=== PATIENT | male | born 1965 | race Caucasian/White ===

== ENCOUNTER → 2021-06-04 14:47 | Outpatient (BNVA) | payer MEDICARE, SELFPAY | PROVIDERS: PCP Internal Medicine Hematology & Oncology; Visit Provider Nurse Practitioner Family | DX: M96.1 Postlaminectomy syndrome, not elsewhere classified (principal); M47.27 Other spondylosis with radiculopathy, lumbosacral region; M53.3 Sacrococcygeal disorders, not elsewhere classified | CPT/HCPCS: 99202 ==

== ENCOUNTER → 2021-06-25 14:04 | Outpatient (BNVA) | payer MEDICARE, SELFPAY | PROVIDERS: PCP Internal Medicine Hematology & Oncology; Visit Provider Nurse Practitioner Family | DX: M96.1 Postlaminectomy syndrome, not elsewhere classified (principal); M47.27 Other spondylosis with radiculopathy, lumbosacral region; M53.3 Sacrococcygeal disorders, not elsewhere classified | CPT/HCPCS: 99212 ==

== ENCOUNTER → 2021-07-09 09:29 | Outpatient (BNVA) | payer MEDICARE, SELFPAY | PROVIDERS: PCP Internal Medicine; Visit Provider Nurse Practitioner Family | DX: Z51.81 Encounter for therapeutic drug level monitoring (principal); F11.20 Opioid dependence, uncomplicated; M96.1 Postlaminectomy syndrome, not elsewhere classified; M47.27 Other spondylosis with radiculopathy, lumbosacral region; M53.3 Sacrococcygeal disorders, not elsewhere classified; R20.2 Paresthesia of skin | CPT/HCPCS: 99212 ==

== ENCOUNTER 2021-07-25 09:27 | Outpatient (REF) | payer MEDICARE, SELFPAY ==
--- NOTE | 2021-07-25 09:32 | EMG_ITS ---
This is a 56-year-old man with history of pain and numbness in both hands since 2017 with the right being worse than the left. PHYSICAL EXAMINATION: On examination, he is alert and oriented. His cranial nerves II through XII are normal. Muscle tone and strength are normal in all 4 extremities. Deep tendon reflexes are symmetrical, 2+. Plantar response are flexor. There is no Tinel or Phalen sign. Nerve conduction EMG study: Normal electrodiagnostic study of both upper extremities except for low amplitudes in the motor nerves bilaterally. No electrodiagnostic evidence of generalized peripheral neuropathy. MD MICHAELA Duran/PACO / [id number]
== END 2021-07-25 09:28 | disposition home or self-care (01) ==
LOC: HO.NEURO 09:27
PROVIDERS: Visit Provider Nurse Practitioner Family
DX: R20.2 Paresthesia of skin (principal)
CPT/HCPCS: 95885; 95913

== ENCOUNTER → 2021-08-06 09:33 | Outpatient (BNVA) | payer MEDICARE, SELFPAY | PROVIDERS: PCP Internal Medicine; Visit Provider Nurse Practitioner Family | DX: M96.1 Postlaminectomy syndrome, not elsewhere classified (principal); M47.27 Other spondylosis with radiculopathy, lumbosacral region; M53.3 Sacrococcygeal disorders, not elsewhere classified; R20.2 Paresthesia of skin | CPT/HCPCS: 99212 ==

== ENCOUNTER → 2021-09-03 11:11 | Outpatient (BNVA) | payer MEDICARE, SELFPAY | PROVIDERS: PCP Internal Medicine; Visit Provider Nurse Practitioner Family | DX: Z51.81 Encounter for therapeutic drug level monitoring (principal); F11.20 Opioid dependence, uncomplicated; M96.1 Postlaminectomy syndrome, not elsewhere classified; M47.27 Other spondylosis with radiculopathy, lumbosacral region; M53.3 Sacrococcygeal disorders, not elsewhere classified; M54.2 Cervicalgia; M79.18 Myalgia, other site; R20.2 Paresthesia of skin | CPT/HCPCS: 99212 ==

== ENCOUNTER 2021-09-16 16:18 | Outpatient (REF) | payer MEDICARE, SELFPAY ==
--- NOTE | ~2021-09-16 | MR_ITS ---
EXAMINATION: MR CERVICAL SPINE WITHOUT CONTRAST CLINICAL INFORMATION: Paresthesia of the skin. COMPARISON: None available. TECHNIQUE: MRI of the cervical spine was obtained using routine sequences without contrast. FINDINGS: Straightening of the normal cervical lordosis. Mild degenerative anterolisthesis of C4 on C5. Moderate degenerative disc disease at C4-C5 and C5-C6. Mild degenerative disc disease at C3-C4 and C6-C7. Associated mixed Modic type discogenic endplate changes including mild Modic type I discogenic edema at C4-C5 and C5-C6. Mild marrow edema within the C3-C5 facets consistent with degenerative stress reaction. No additional suspicious marrow edema. The vertebral body heights are largely maintained. No demonstrated spinal cord signal abnormalities. Limited evaluation of the soft tissues of the neck without demonstrated abnormalities. The flow voids of the major cervical vessels are maintained. Normal appearance of the cervicomedullary junction and visualized posterior fossa. SPINAL LEVELS: C2-C3: Normal annular contour. There is no uncovertebral joint arthropathy. There is moderate left and mild right facet joint arthropathy. There is moderate left and no right neural foraminal stenosis. There is no spinal canal stenosis. C3-C4: Mild disc-osteophyte complex. There is moderate bilateral uncovertebral joint arthropathy. There is moderate bilateral facet joint arthropathy. There is moderate left and mild right neural foraminal stenosis. There is no spinal canal stenosis. C4-C5: Moderate disc-osteophyte complex. There is moderate right and mild left uncovertebral joint arthropathy. There is severe right and moderate left facet joint arthropathy. There is moderate to severe right and mild left neural foraminal stenosis. There is mild spinal canal stenosis. C5-C6: Moderate disc-osteophyte complex. There is moderate bilateral uncovertebral joint arthropathy. There is moderate bilateral facet joint arthropathy. There is severe left and moderate right neural foraminal stenosis. There is mild to moderate spinal canal stenosis. C6-C7: Moderate disc-osteophyte complex. There is moderate bilateral uncovertebral joint arthropathy. There is severe left and moderate right facet joint arthropathy. There is moderate to severe left and mild right neural foraminal stenosis. There is mild to moderate spinal canal stenosis. C7-T1: Normal annular contour. There is mild bilateral uncovertebral joint arthropathy. There is moderate to severe right and moderate left facet joint arthropathy. There is moderate bilateral neural foraminal stenosis. There is no spinal canal stenosis. MR/MR cervical spine wo con IMPRESSION: Moderate multilevel degenerative spondyloarthropathy of the cervical spine as described in detail above. Most notably, there are mild to moderate spinal canal stenoses from C4-C7. Moderate to severe neural foraminal stenoses from C2-T1. Moderate to advanced multilevel facet joint arthropathy.
== END 2021-09-16 16:19 | disposition home or self-care (01) ==
LOC: HO.MRI 16:18
PROVIDERS: Visit Provider Nurse Practitioner Family
DX: R20.2 Paresthesia of skin (principal); M47.812 Spondylosis without myelopathy or radiculopathy, cervical region; M48.02 Spinal stenosis, cervical region
CPT/HCPCS: 72141

== ENCOUNTER 2021-09-18 06:21 | Outpatient (REF) | payer MEDICARE, SELFPAY ==
--- NOTE | ~2021-09-18 | FL_ITS ---
EXAMINATION: XR FLUOROSCOPY WITH IMAGES CLINICAL INFORMATION: Postlaminectomy syndrome. COMPARISON: None. TECHNIQUE: Fluoroscopy performed by Zarina Erwin. Fluoroscopy time: 0.3 minutes DAP: 2.45 Gycm2 Images: 2 FINDINGS: There are 2 images obtained revealing needle positioned at the L2-L3 disc level with contrast opacifying the disc and a second needle inferior to L3 left pedicle with contrast opacifying the epidural space and the adjacent paravertebral soft tissues. There is mild degenerative spondylosis at the L2-L3, L3-L4 and L4-L5 disc levels. No visible acute fracture or dislocation seen. FL/FL guidance in treatment room IMPRESSION: Fluoroscopy guidance provided to referrer for pain management.
== END 2021-09-18 06:22 | disposition home or self-care (01) ==
LOC: HO.RADIR 06:21
PROVIDERS: Visit Provider Internal Medicine
DX: M96.1 Postlaminectomy syndrome, not elsewhere classified (principal); M47.27 Other spondylosis with radiculopathy, lumbosacral region
CPT/HCPCS: 64483; 64484; J1100; Q9967

== ENCOUNTER 2021-10-15 08:39 | Outpatient (REF) | payer MEDICARE, SELFPAY ==
--- NOTE | ~2021-10-15 | MR_ITS ---
EXAMINATION: MR LUMBAR SPINE WITHOUT AND WITH CONTRAST CLINICAL INFORMATION: 56-year-old with complaints of a chronic low back pain, with new left-sided thigh pain with history of previous spinal injection procedure. COMPARISON: None TECHNIQUE: MRI of the lumbar spine was obtained using routine sequences with and without contrast. Intravenous Contrast: Gadavist 9 mL. FINDINGS: Coronal Alignment: Mild mid lumbar dextrocurvature, slightly convex to the right at L3 with slight hqhqg-qe-ivkp lateral listhesis at L2-L3 and slight levocurvature convex to the left at T11-T12. Sagittal Alignment: There is straightening of the lumbar spine in the sagittal plane. No spondylolisthesis. Lumbosacral Junction: Normal. 5 rib-bearing lumbar-type vertebral bodies. Vertebral Bodies: Normal height. Disc Spaces and Endplates: Severe disc space height loss at L5-S1, ngbelizt-vk-wlbyci disc space height loss at L4-L5, moderate disc space height loss at L3-L4 and opof-ch-jvzwhxth disc space height loss at L2-L3 with xuhr-xj-qngmgbfi degrees of disc desiccation and multilevel Schmorl's nodes. There is anterolateral spondylosis at these levels. Spinal Canal: No abnormal developmental findings. Bone Marrow: Type I degenerative bone marrow signal changes seen along the inferior endplate of L3 posteriorly with associated marrow enhancement. Minimal type I degenerative marrow signal changes along the superior endplate of L3 with associated marrow enhancement. There is type II degenerative marrow signal change seen along the endplates between L2-L3 and L5-S1 inclusive, most apparent at L4-L5 and L5-S1. No suspicious marrow replacing process. Mild marrow edema noted in the L2 spinous process with associated mild marrow enhancement which may reflect a stress reaction. Conus Medullaris: Terminates at T12-L1. Morphology and signal is normal. No abnormal enhancement. Intradural Nerve Roots: Crowding of the intradural nerve roots at L2-L3 and L3-L4. See below. L5-S1: There is concentric disc osteophyte complex with a partially calcified central disc herniation with mild encroachment on the central thecal sac, abutting the left S1 nerve root sleeve origin without nerve root compression or displacement. Right-sided hemilaminectomy defect noted with mild bilateral facet arthrosis without significant central spinal canal stenosis. There is slight narrowing of the left subarticular zone. There is moderate right-sided and gehfudbb-dj-ypsfhn left-sided neural foraminal stenosis with disc osteophyte complex abutting the exiting L5 nerve roots bilaterally. L4-L5: Concentric disc osteophyte complex noted encroaching on the neural foramina bilaterally and mild flattening of the ventral dural sac with evidence of a previous left-sided hemilaminectomy with chronic postoperative changes involving the posterior elements. No significant central spinal canal stenosis. Bilateral facet arthrosis is noted, with crowding of the right subarticular recess resulting in mild encroachment on the traversing right L5 nerve root. There is moderate bilateral neural foraminal stenosis, with disc osteophyte complex abutting the exiting L4 nerve roots, right more than left. L3-L4: Central extruded disc herniation with slight caudal migration noted with ligamentum flavum thickening and underlying disc bulging with left posterolateral disc osteophyte complex and moderate bilateral facet arthropathy. There is severe central spinal canal stenosis with marked crowding of the intradural nerve roots and there is enhancement along the posterior annular fibers of the disc asymmetric to the left, entering the left neural foramen likely reflecting granulation tissue. There is severe bilateral subarticular recess stenosis with probable compromise of the traversing L4 nerve roots bilaterally. There is moderate left-sided and mild right-sided neural foraminal stenosis, with disc osteophyte complex impinging on the exiting left L3 nerve root and disc bulging contacting the exiting right L3 nerve root. L2-L3: There is diffuse disc bulging, superimposed on which is a 2.7 x 1.5 x 0.7 cm maximum dimensions structure of intermediate T1 with peripheral enhancement in the left subarticular recess and protruding into the left neural foramen which has the appearance of an extruded disc fragment with peripheral granulation tissue which impinges on the anterolateral thecal sac and exiting left L2 nerve root. There is epidural enhancement on the left which is consistent with inflammation/granulation tissue. Some enhancement in the dorsal annular fibers of the disc centrally and to the left of midline is also noted. Severe left subarticular zone compromise is noted likely involving the left L3 nerve root. There is associated moderate central spinal canal stenosis and there is mild right and moderate left-sided facet arthropathy. There is mild foraminal narrowing on the right. L1-L2: Minor disc bulging noted with moderate bilateral facet arthrosis and ligamentum flavum thickening with a tiny synovial cyst on the right. No significant spinal canal stenosis. Mild foraminal narrowing noted bilaterally. Paraspinal/Retroperitoneal: The paravertebral soft tissues appear unremarkable. MR/MR lumbar spine wo/w con IMPRESSION: 1. Multilevel discogenic degenerative changes and spondylosis with straightening of the lumbar spine with mild S-shaped thoracolumbar scoliotic curvature as described above. 2. Postoperative changes on the right at L5-S1 and on the left at the L4-L5 as discussed above. There is disc bulging at L2-L3 with suspicion for a 2.7 cm extruded disc herniation encroaching on the left subarticular recess and left neural foramen with some enhancing granulation tissue along its margins impinging on the anterolateral thecal sac, traversing left L3 and exiting left L2 nerve roots with marked left-sided foraminal compromise. Central spinal canal stenosis also noted at this level. 3. Disc bulging and central disc herniation at L3-L4 with posterior element hypertrophic degenerative changes, with severe spinal canal stenosis as described above and bilateral neural foraminal stenosis with impingement on the exiting L3 nerve roots, left more than right, and probable compromise of the traversing L4 nerve roots bilaterally. Enhancement in the posterolateral margin of the disc asymmetric to the left at this level is consistent with granulation tissue. 4. Multilevel bilateral facet arthropathy as described above.
== END 2021-10-15 08:40 | disposition home or self-care (01) ==
LOC: HO.MRI 08:39
PROVIDERS: Visit Provider Nurse Practitioner Family
DX: M47.27 Other spondylosis with radiculopathy, lumbosacral region (principal); M96.1 Postlaminectomy syndrome, not elsewhere classified
CPT/HCPCS: 72158; A9585

== ENCOUNTER → 2021-10-16 08:59 | Outpatient (BNVA) | payer MEDICARE, SELFPAY | PROVIDERS: PCP Internal Medicine; Visit Provider Nurse Practitioner Family | DX: Z51.81 Encounter for therapeutic drug level monitoring (principal); F11.20 Opioid dependence, uncomplicated; M96.1 Postlaminectomy syndrome, not elsewhere classified; M47.27 Other spondylosis with radiculopathy, lumbosacral region; M53.3 Sacrococcygeal disorders, not elsewhere classified; M54.2 Cervicalgia; M79.18 Myalgia, other site; R20.2 Paresthesia of skin | CPT/HCPCS: 99212 ==

== ENCOUNTER → 2021-11-13 08:51 | Outpatient (BNVA) | payer MEDICARE, SELFPAY | PROVIDERS: PCP Internal Medicine; Visit Provider Nurse Practitioner Family | DX: Z51.81 Encounter for therapeutic drug level monitoring (principal); F11.20 Opioid dependence, uncomplicated | CPT/HCPCS: 99212 ==

== ENCOUNTER → 2021-12-06 08:58 | Outpatient (BNVA) | payer MEDICARE, SELFPAY | PROVIDERS: PCP Internal Medicine; Visit Provider Nurse Practitioner Family | DX: Z51.81 Encounter for therapeutic drug level monitoring (principal); F11.20 Opioid dependence, uncomplicated; M96.1 Postlaminectomy syndrome, not elsewhere classified; M47.27 Other spondylosis with radiculopathy, lumbosacral region; M53.3 Sacrococcygeal disorders, not elsewhere classified; R20.2 Paresthesia of skin; M54.2 Cervicalgia; M79.18 Myalgia, other site | CPT/HCPCS: 99212 ==

== ENCOUNTER → 2022-02-05 08:53 | Outpatient (BNVA) | payer MEDICARE, SELFPAY | PROVIDERS: PCP Internal Medicine; Visit Provider Nurse Practitioner Family | DX: Z51.81 Encounter for therapeutic drug level monitoring (principal); F11.20 Opioid dependence, uncomplicated; M96.1 Postlaminectomy syndrome, not elsewhere classified; M47.27 Other spondylosis with radiculopathy, lumbosacral region; M53.3 Sacrococcygeal disorders, not elsewhere classified; R20.2 Paresthesia of skin; M54.2 Cervicalgia; M79.18 Myalgia, other site | CPT/HCPCS: 99212 ==

== ENCOUNTER → 2022-03-04 09:11 | Outpatient (BNVA) | payer MEDICARE, SELFPAY | PROVIDERS: PCP Internal Medicine; Visit Provider Nurse Practitioner Family | DX: Z51.81 Encounter for therapeutic drug level monitoring (principal); F11.20 Opioid dependence, uncomplicated | CPT/HCPCS: 99211 ==

== ENCOUNTER 2022-03-05 05:58 | Outpatient (REF) | payer MEDICARE, SELFPAY ==
--- NOTE | ~2022-03-05 | FL_ITS ---
EXAMINATION: XR FLUOROSCOPY WITH IMAGES CLINICAL INFORMATION: M53.3 - Sacrococcygeal disorders, not elsewhere classified COMPARISON: None. TECHNIQUE: Fluoroscopy performed by Dr. Edmond Mckeon. Fluoroscopy time: 0.3 minutes. Cumulative Dose: 5.54 mGy. DAP: 0.557 Gy-cm2. Images: 4. FINDINGS: There is a spinal needle overlying the mid left SI joint and a spinal needle overlying the mid right SI joint. The lateral views show needle tips at level of the joint in expected position. FL/FL guidance in treatment room IMPRESSION: Fluoroscopy for pain management procedure.
== END 2022-03-05 05:59 | disposition home or self-care (01) ==
LOC: HO.RADIR 05:58
PROVIDERS: Visit Provider Internal Medicine
DX: M53.3 Sacrococcygeal disorders, not elsewhere classified (principal)
CPT/HCPCS: 27096; J1040

== ENCOUNTER → 2022-03-10 11:23 | Outpatient (BNVA) | payer MEDICARE, SELFPAY | PROVIDERS: PCP Internal Medicine; Visit Provider Internal Medicine | DX: M79.18 Myalgia, other site (principal); M48.061 Spinal stenosis, lumbar region without neurogenic claudication; M96.1 Postlaminectomy syndrome, not elsewhere classified; M47.27 Other spondylosis with radiculopathy, lumbosacral region; M53.3 Sacrococcygeal disorders, not elsewhere classified | CPT/HCPCS: 20552; 20553; 99212; J2795 ==

== ENCOUNTER 2022-04-09 05:57 | Outpatient (REF) | payer MEDICARE, SELFPAY ==
--- NOTE | ~2022-04-09 | FL_ITS ---
EXAMINATION: XR FLUOROSCOPY WITH IMAGES CLINICAL INFORMATION: Sacrococcygeal disorder's. COMPARISON: March 05, 2022 TECHNIQUE: Fluoroscopy performed by Dr. Edmond Mckeon. Fluoroscopy time: 0.3 minutes. Cumulative Dose: 9.81 mGy. DAP: 2.44 Gy-cm2. Images: 6. FINDINGS: Multiple needles seen bilaterally overlying the sacrum FL/FL guidance in treatment room IMPRESSION: Intraoperative fluoroscopy for pain management procedure.
== END 2022-04-09 05:58 | disposition home or self-care (01) ==
LOC: CF 05:57
PROVIDERS: Visit Provider Internal Medicine
DX: M53.3 Sacrococcygeal disorders, not elsewhere classified (principal)
CPT/HCPCS: 64451; J2795; Q9965; Q9967

== ENCOUNTER → 2022-04-14 10:32 | Outpatient (BNVA) | payer MEDICARE, SELFPAY | PROVIDERS: PCP Internal Medicine; Visit Provider Internal Medicine | DX: M96.1 Postlaminectomy syndrome, not elsewhere classified (principal); M48.061 Spinal stenosis, lumbar region without neurogenic claudication | CPT/HCPCS: Q3014 ==

== ENCOUNTER → 2022-05-06 15:06 | Outpatient (BNVA) | payer MEDICARE, SELFPAY | PROVIDERS: PCP Internal Medicine; Visit Provider Nurse Practitioner Family | DX: Z79.891 Long term (current) use of opiate analgesic (principal) | CPT/HCPCS: 99211 ==

== ENCOUNTER → 2022-06-19 10:15 | Outpatient (BNVA) | payer MEDICARE, SELFPAY | PROVIDERS: PCP Internal Medicine; Visit Provider Nurse Practitioner Family | DX: M53.3 Sacrococcygeal disorders, not elsewhere classified (principal); M47.27 Other spondylosis with radiculopathy, lumbosacral region; M96.1 Postlaminectomy syndrome, not elsewhere classified; M79.18 Myalgia, other site; Z79.891 Long term (current) use of opiate analgesic | CPT/HCPCS: 99212 ==

== ENCOUNTER 2022-07-16 04:53 | Outpatient (REF) | payer MEDICARE, SELFPAY ==
--- NOTE | ~2022-07-16 | FL_ITS ---
EXAMINATION: XR FLUOROSCOPY WITH IMAGES CLINICAL INFORMATION: Spinal stenosis. COMPARISON: None. TECHNIQUE: Fluoroscopy Supervised By: Zarina. Fluoroscopy Time: 0.1 minute. Cumulative Dose: 170 mGy. DAP: 0.228 Gycm2. Images: 2. FINDINGS: There are 2 digital images obtained revealing needle positioned adjacent to L4 and L5 pedicles with contrast opacifying the soft tissues. There is mild ventral spondylosis at the L3-L4 and L4-L5 disc levels. No aggressive lytic or sclerotic process seen. No visible acute fracture or dislocation. No lytic process. The paravertebral soft tissues are normal. FL/FL guidance in treatment room IMPRESSION: 1. Fluoroscopy was provided to referring physician for pain management. 2. There is mild ventral spondylosis L3-L4 and L4-L5 disc levels.
== END 2022-07-16 04:54 | disposition home or self-care (01) ==
LOC: CF 04:53
PROVIDERS: Visit Provider Internal Medicine
DX: M47.817 Spondylosis without myelopathy or radiculopathy, lumbosacral region (principal); M47.816 Spondylosis without myelopathy or radiculopathy, lumbar region
CPT/HCPCS: 64493; 64494

== ENCOUNTER → 2022-07-18 08:20 | Outpatient (BNVA) | payer MEDICARE, SELFPAY | PROVIDERS: PCP Internal Medicine; Visit Provider Nurse Practitioner Family | DX: M53.3 Sacrococcygeal disorders, not elsewhere classified (principal); M47.27 Other spondylosis with radiculopathy, lumbosacral region; M96.1 Postlaminectomy syndrome, not elsewhere classified; M79.18 Myalgia, other site; M47.816 Spondylosis without myelopathy or radiculopathy, lumbar region; G57.02 Lesion of sciatic nerve, left lower limb; Z98.890 Other specified postprocedural states | CPT/HCPCS: Q3014 ==

== ENCOUNTER 2022-08-20 06:47 | Outpatient (REF) | payer MEDICARE, SELFPAY ==
--- NOTE | ~2022-08-20 | FL_ITS ---
EXAMINATION: XR FLUOROSCOPY WITH IMAGES CLINICAL INFORMATION: Static nerve lesion. Left lower lobe pain. COMPARISON: None. TECHNIQUE: Fluoroscopy Supervised By: Dr. Edmond Mckeon. Fluoroscopy Time: 0.3 minutes. Cumulative Dose: 4.66 mGy. DAP: 1.26 Gy-cm2. Images: 1. FINDINGS: There is a single image revealing needle positioned inferior to the left SI joint with contrast opacifying the soft tissues. The SI joints spaces is maintained normal. No gross bony abnormality seen on the visualized images. FL/FL guidance in treatment room IMPRESSION: Fluoroscopy guidance was provided to referrer for pain management.
== END 2022-08-20 06:48 | disposition home or self-care (01) ==
LOC: CF 06:47
PROVIDERS: Visit Provider Internal Medicine
DX: M79.18 Myalgia, other site (principal); G57.02 Lesion of sciatic nerve, left lower limb
CPT/HCPCS: 20552; J3301

== ENCOUNTER → 2022-09-05 08:19 | Outpatient (BNVA) | payer MEDICARE, SELFPAY | PROVIDERS: PCP Internal Medicine; Visit Provider Internal Medicine | DX: M96.1 Postlaminectomy syndrome, not elsewhere classified (principal) | CPT/HCPCS: 99212 ==

== ENCOUNTER → 2022-10-09 09:01 | Outpatient (BNVA) | payer MEDICARE, SELFPAY | PROVIDERS: PCP Internal Medicine; Visit Provider Internal Medicine | DX: Z51.81 Encounter for therapeutic drug level monitoring (principal) | CPT/HCPCS: 99211 ==

== ENCOUNTER → 2022-11-14 09:07 | Outpatient (BNVA) | payer MEDICARE, SELFPAY | PROVIDERS: PCP Internal Medicine; Visit Provider Internal Medicine | DX: Z51.81 Encounter for therapeutic drug level monitoring (principal); F11.20 Opioid dependence, uncomplicated; M48.061 Spinal stenosis, lumbar region without neurogenic claudication; M96.1 Postlaminectomy syndrome, not elsewhere classified | CPT/HCPCS: 99212 ==

== ENCOUNTER 2022-12-22 08:45 | Outpatient (AMB) | payer MEDICARE, SELFPAY ==
--- NOTE | 2022-12-22 08:50 | MHC.OFFVIS ---
Intake Vital Signs 12/22/22 08:52 Height 5 ft 10 in Weight 195 lb BMI 28.0 BP 159/75 H Blood Pressure Location Lt brachial Position Sitting Respiration 14 Pulse 63 Pulse Source Pulse Oximeter Pulse Oximetry (%) 96 Oxygen Delivery Method Room Air Intake Visit Reasons: Pill count Allergies No Known Allergies Allergy (Verified 12/22/22 08:56) Medication List - Last Reconciled 12/22/22 by Loida Louie LPN alprazolam 0.5 mg PO TID PRN aptugednv-cifhkzry-rupbmnz ala 50-200-25 mg (Biktarvy) 1 tab PO DAILY doxycycline hyclate 100 mg PO DAILY fluoxetine 20 mg PO DAILY fluticasone propionate 50 mcg/actuation 1 spray intranasal BID gabapentin 600 mg PO QID hydrocodone-acetaminophen 5-325 mg 1 tab PO Q4H PRN 30 days lidocaine 5% 1 patch topical DAILY meclizine 25 mg PO DAILY PRN mupirocin 2% topical DAILY naloxone 4 mg/actuation (Narcan) 4 mg intranasal Q2M PRN omeprazole 40 mg PO DAILY simvastatin 20 mg PO BEDTIME terbinafine HCl 250 mg PO DAILY zolpidem 5 mg PO BEDTIME PRN HPI Pill count HPI Details 57-year-old male presenting today for a pill count. 184 pills were expected, and 157 pills were presented. He had a delay in filling his prescription and filled it on 12/17/2022. His [facility] had a refill date of 12/06/22, but it was not done on time due to opioid medication shortage. He states that he was taking 6-8 ibuprofens in the morning and two pain patches every four hours from 12/06/22 to 12/17/22 to manage his pain. He is still waiting for an appointment with Dr. Valdovinos. He is amenable to proceed with left L5 TFESI for his LLE pain. Past Procedures and Surgery: 08/20/2022: Piriformis Muscle Injection, Left: No relief 07/16/22: Left Diagnostic L4-L5-S1 MBB-0% pain relief 04/09/22: Right Diagnostic SIJ Innervation ? No relief. 03/05/22: Bilateral intra-articular corticosteroid SIJ Injection ? 90% relief for 2 days. 12/09/21: Left L2-L3 discectomy and L3-L4 decompression by Dr. Griffith 09/18/21: Left L3 TFESI, attempted Left L2- No relief. Review of Systems Const All systems reviewed & are unremarkable except as noted in HPI and below Physical Exam Vital Signs: Last Vital Signs Pulse 63 12/22/22 08:52 Resp 14 12/22/22 08:52 BP 159/75 H 12/22/22 08:52 Pulse Ox 96 12/22/22 08:52 Oxygen Delivery Method Room Air 12/22/22 08:52 BMI result Body Mass Index 28.0 General: Appears afebrile. Alert and oriented. Mood and affect appropriate. Follows and participates in conversation appropriately. Respiratory effort is unlabored. Able to transition from sit to stand unassisted. Ambulates with bilaterally normal heel strike and toe off. Results Reviewed Results Reviewed: No imaging is available for review. Assessment & Plan Assessment & Plan (1) Spondylosis of lumbosacral spine with radiculopathy: Code(s): M47.27 - Other spondylosis with radiculopathy, lumbosacral region Plan 1. Will schedule him for Left L5 TFESI for his back/LLE pain. Discussed the risks and benefits of the procedure with the patient in detail. All questions were answered. The patient is on board with the plan. 2. The patient is awaiting appointment with Dr. Valdovinos for surgical evaluation. 3. Once again reminded the patient about the option for spinal cord stimulation which we have already discussed in the past. Justification for interventional therapy: ? Patient with average pain > 6/10 ? Patient has exhausted conservative therapy Scribed for Dr. Mckeon by Hipolito Abdi, medical delivery driver, on 12/22/2022. I, Dr. Mckeon, have personally reviewed and agree with the information entered by the scribe. Medications: Refilled hydrocodone-acetaminophen 5-325 mg Partial Fill upon patient request. No Tylenol or any other Tylenol products while on this medication!. 1 tab PO Q4H 30 days PRN 180 tabs 0RF pain Coding Level of Care Code Est Pt Level 4 (36477) Diagnoses Spondylosis of lumbosacral spine with radiculopathy M47.27
[2022-12-22 08:52] VITALS: BP 159/75; PULSE 63; RESP 14; O2SAT 96; BMI 28.0
== END 2022-12-22 09:08 | disposition home or self-care (01) ==
PROVIDERS: PCP Internal Medicine; Visit Provider Internal Medicine
DX: M47.27 Other spondylosis with radiculopathy, lumbosacral region (principal)
CPT/HCPCS: 99214

== ENCOUNTER → 2022-12-22 08:45 | Outpatient (BNVA) | payer MEDICARE, SELFPAY | PROVIDERS: PCP Internal Medicine; Visit Provider Internal Medicine | DX: Z51.81 Encounter for therapeutic drug level monitoring (principal); F11.20 Opioid dependence, uncomplicated; M47.27 Other spondylosis with radiculopathy, lumbosacral region | CPT/HCPCS: 99212 ==

== ENCOUNTER 2023-01-28 06:00 | Outpatient (REF) | payer MEDICARE, SELFPAY ==
--- NOTE | ~2023-01-28 | FL_ITS ---
EXAMINATION: XR FLUOROSCOPY WITH IMAGES CLINICAL INFORMATION: History of postlaminectomy syndrome COMPARISON: MRI lumbar spine from 10/15/2021 TECHNIQUE: Fluoroscopy Supervised By: Dr. Mckeon. Fluoroscopy Time: 0.1 minute. Cumulative Dose: 2.40 mGy. DAP: 0.35 Gycm2. A single AP view of the lower lumbar spine is saved. FL/FL guidance in treatment room FINDINGS AND IMPRESSION: Multilevel degenerative arthropathy of the lumbar spine. Images are not labeled with regards to laterality. Fluoroscopic imaging performed during a nerve root sleeve injection procedure at the level of a L5 nerve root.
== END 2023-01-28 06:01 | disposition home or self-care (01) ==
LOC: CF 06:00
PROVIDERS: Visit Provider Internal Medicine
DX: F11.20 Opioid dependence, uncomplicated (principal); M47.27 Other spondylosis with radiculopathy, lumbosacral region; M96.1 Postlaminectomy syndrome, not elsewhere classified
CPT/HCPCS: 64483; J1100

== ENCOUNTER 2023-01-28 08:23 | Outpatient (AMB) | payer MEDICARE, SELFPAY ==
[2023-01-28 08:32] VITALS: BP 140/82; PULSE 55; RESP 14; O2SAT 98
--- NOTE | 2023-01-28 08:32 | A.OFFVIS_ITS ---
Intake Vital Signs 01/28/23 08:32 BP 140/82 H Blood Pressure Location Lt brachial Position Sitting Respiration 14 Pulse 55 Pulse Source Pulse Oximeter Pulse Oximetry (%) 98 Oxygen Delivery Method Room Air Intake Visit Reasons: Left L5 TFESI/ pill count Intake Note: Pills counted - Pt was supposed to have 102 vicodin, he presented 112. Dr. Mckeon notified to send in next script Allergies No Known Allergies Allergy (Verified 01/28/23 08:33) HPI Left L5 TFESI/ pill count HPI Details Patient presents for scheduled procedure. Denies any recent cough, cold, infection, fever or other significant changes in medical history since last office visit. Physical Exam Vital Signs: Last Vital Signs Pulse 55 01/28/23 08:32 Resp 14 01/28/23 08:32 BP 140/82 H 01/28/23 08:32 Pulse Ox 98 01/28/23 08:32 Oxygen Delivery Method Room Air 01/28/23 08:32 Office Procedures Details: Transforaminal epidural steroid injection, Left L5 After obtaining written consent, pre-procedure blood pressure and heart rate were stable and recorded in the nursing record. The patient was placed in the prone position on the fluoroscopy table. The lumbosacral area was prepped with chloraprep, allowed to dry and draped in sterile fashion. Using fluoroscopy, the skin overlying our target was anesthetized with 0.5% lidocaine. A 22 gauge 3.5 inch spinal needle was advanced to the safe triangle in the upper pole of the left L5 foramen. No paresthesias were elicited with needle placement and aspiration was negative for blood and CSF. Correct needle position was confirmed with approximately 1 ml contrast dye (Isovue 300 mg/ml) injected under fluoroscopy. No evidence of vascular or int rathecal uptake was seen and there was both epidural and peripheral spread of the contrast agent. 10 mg dexamethasone plus 1 ml containing 0.5% lidocaine was slowly injected. The needle was flushed and removed. the same procedure was repeated for the remaining levels. The skin was cleansed and a sterile bandages were applied. The patient tolerated the procedure well and no complications were encountered. Following the procedure the patient's vital signs were stable. The patient was discharged home in good condition with post-procedural instructions. Time Out: Immediately prior to the procedure, the following was verbally confirmed that there is a signed consent form and that the correct patient, planned procedure, site and side are consistent with documentation and that necessary equipment and/or blood products are available prior to the start of the case. Complications: none EBL: <5 cc 76810 - Lumbar/Sacral Procedure code (CPT) selection complete Assessment & Plan Assessment & Plan (1) Spondylosis of lumbosacral spine with radiculopathy: Code(s): M47.27 - Other spondylosis with radiculopathy, lumbosacral region Plan Patient is status post left L5 TFESI. Patient tolerated procedure well and was discharged home in stable condition with discharge instructions. All questions were answered. We will follow-up via telephone or in clinic to assess response to therapy. A follow-up appointment was made during today's visit. Orders: Orders FL guidance in treatment room Today M47.27 - Other spondylosis with radi culopathy, lumbosacral region, M96.1 - Postlaminectomy syndrome, not elsewhere classified Coding Level of Care Code Procedure Only Diagnoses Spondylosis of lumbosacral spine with radiculopathy M47.27 CPT Codes Transforaminal Epidural Steroid Inj - TESI 3: 24576 - Lumbar/Sacral ([id number])
== END 2023-01-28 09:32 | disposition home or self-care (01) ==
PROVIDERS: PCP Internal Medicine; Visit Provider Internal Medicine
DX: M47.27 Other spondylosis with radiculopathy, lumbosacral region (principal)
CPT/HCPCS: 64483

== ENCOUNTER 2023-03-13 09:07 | Outpatient (AMB) | payer MEDICARE, SELFPAY ==
[2023-03-13 09:20] VITALS: PULSE 56; RESP 14; O2SAT 97; BMI 28.0
--- NOTE | 2023-03-13 09:20 | MHC.OFFVIS ---
Intake Vital Signs 03/13/23 09:20 Height 5 ft 10 in Weight 195 lb BMI 28.0 Blood Pressure Location Rt brachial Position Sitting Respiration 14 Pulse 56 Pulse Source Pulse Oximeter Pulse Oximetry (%) 97 Oxygen Delivery Method Room Air Intake Visit Reasons: s/p Left L5 TFESI/pill count Intake Note: Pt states he last took vicodin 03/13/23 @ 6am Allergies No Known Allergies Allergy (Verified 03/13/23 09:21) Medication List - Last Reconciled 03/13/23 by Loida Louie LPN alprazolam 0.5 mg PO TID PRN nfgofcisd-wkaijzhh-mefabkh ala 50-200-25 mg (Biktarvy) 1 tab PO DAILY doxycycline hyclate 100 mg PO DAILY fluoxetine 20 mg PO DAILY fluticasone propionate 50 mcg/actuation 1 spray intranasal BID gabapentin 600 mg PO QID hydrocodone-acetaminophen 5-325 mg 1 tab PO Q4H PRN 30 days lidocaine 5% 1 patch topical DAILY meclizine 25 mg PO DAILY PRN mupirocin 2% topical DAILY naloxone 4 mg/actuation (Narcan) 4 mg intranasal Q2M PRN omeprazole 40 mg PO DAILY simvastatin 20 mg PO BEDTIME terbinafine HCl 250 mg PO DAILY zolpidem 5 mg PO BEDTIME PRN HPI s/p Left L5 TFESI/pill count HPI Details 58-year-old male who presents today to the office for a status post left L5 TFESI and pill count. The patient reports 80 % relief following the procedure for few hours before it returned to the previous level. He continues to have significant pain down the left lower extremity. 30 pills were expected, and 38 pills were presented. The patient is not interested in proceeding with SCS stimulator trial. He is thinking of visiting Dr. Valdovinos for consideration of a left L5 foraminotomy given his excellent diagnostic response to the left L5 TFESI. He states that he slept on his right side and has had shoulder pain since. He has had intermittent shoulder pain for a few months now. He had an x-ray of the shoulder that revealed arthritis. He had two shoulder injections in the past with moderate to minimal relief. He is interested in a shoulder injection in the office today. Past Procedures and Surgery: 01/28/23: Transforaminal epidural steroid injection, Left L5: % relief for few hours. 08/20/2022: Piriformis Muscle Injection, Left: No relief 07/16/22: Left Diagnostic L4-L5-S1 MBB-0% pain relief 04/09/22: Right Diagnostic SIJ Innervation ? No relief. 03/05/22: Bilateral intra-articular corticosteroid SIJ Injection ? 90% relief for 2 days. 12/09/21: Left L2-L3 discectomy and L3-L4 decompression by Dr. Griffith 09/18/21: Left L3 TFESI, attempted Left L2- No relief. Review of Systems Const All systems reviewed & are unremarkable except as noted in HPI and below Physical Exam Vital Signs: Last Vital Signs Pulse 56 03/13/23 09:20 Resp 14 03/13/23 09:20 Pulse Ox 97 03/13/23 09:20 Oxygen Delivery Method Room Air 03/13/23 09:20 BMI result Body Mass Index 28.0 General: Appears afebrile. Alert and oriented. Mood and affect appropriate. Follows and participates in conversation appropriately. Respiratory effort is unlabored. Able to transition from sit to stand unassisted. Ambulates with bilaterally normal heel strike and toe off. Right shoulder range of motion is limited by pain with pain on abduction. Office Procedures Joint Injection/Drain Joint Injection/Drain Details: Right subacromial shoulder injection, ultrasound guided Primary Site: right shoulder Prep: site was prepped using sterile technique Injected: 40 mg of, Kenalog, with 3 mL of, 0.25% bupivacaine and in the subcromial space Approach Used: posterolateral Procedure: The patient tolerated the procedure well Coding Details: An ultrasound image of the injection was taken and stored in the permanent record. 46042 - Acromioclavicular with ultrasound guidance Procedure code (CPT) selection complete Results Reviewed Results Reviewed: No imaging is available for review. Assessment & Plan Assessment & Plan (1) Lumbar spondylosis: Code(s): M47.816 - Spondylosis without myelopathy or radiculopathy, lumbar region (2) Failed back syndrome: Code(s): M96.1 - Postlaminectomy syndrome, not elsewhere classified (3) Rotator cuff tendinitis: Code(s): M75.80 - Other shoulder lesions, unspecified shoulder Qualifiers: Laterality: right Qualified Code(s): M75.81 - Other shoulder lesions, right shoulder Plan A refill of Vicodin 5-325 mg was provided today. Pill count is consistent. Patient will follow up in one month for pill count and refill. Patient is status post right subacromial shoulder injection, ultrasound guided for his shoulder pain. Patient tolerated procedure well and was discharged home in stable condition with discharge instructions. All questions were answered. Scribed for Dr. Mckeon by Hipolito Abdi, medical apparatus model maker, on 03/13/2023. I, Dr. Mckeon, have personally reviewed and agree with the information entered by the scribe. Medications: Changed From hydrocodone-acetaminophen 5-325 mg Partial Fill upon patient request. No Tylenol or any other Tylenol products while on this medication!. 1 tab PO Q4H 30 days PRN 180 tabs 0RF pain To hydrocodone-acetaminophen 5-325 mg Partial Fill upon patient request. No Tylenol or any other Tylenol products while on this medication. 1 tab PO Q4H PRN 180 tabs 0RF pain 30 days Coding Level of Care Code Est Pt Level 4 (99678) Diagnoses Lumbar spondylosis M47.816 Failed back syndrome M96.1 Tendinitis of right rotator cuff M75.81 Laterality: right CPT Codes Coding - Joint 6: 66674 - Acromioclavicular with ultrasound guidance ([id number])
== END 2023-03-13 09:53 | disposition home or self-care (01) ==
PROVIDERS: PCP Internal Medicine; Visit Provider Internal Medicine
DX: M47.816 Spondylosis without myelopathy or radiculopathy, lumbar region (principal); M96.1 Postlaminectomy syndrome, not elsewhere classified; M75.81 Other shoulder lesions, right shoulder
CPT/HCPCS: 20606; 99214

== ENCOUNTER → 2023-03-13 09:07 | Outpatient (BNVA) | payer MEDICARE, SELFPAY | PROVIDERS: PCP Internal Medicine; Visit Provider Internal Medicine | DX: M75.81 Other shoulder lesions, right shoulder (principal); M47.816 Spondylosis without myelopathy or radiculopathy, lumbar region; M96.1 Postlaminectomy syndrome, not elsewhere classified | CPT/HCPCS: 20606; 99212; J3301 ==

== ENCOUNTER 2023-04-10 13:42 | Outpatient (AMB) | payer MEDICARE, SELFPAY ==
[2023-04-10 13:54] VITALS: BP 155/90; PULSE 65; RESP 16; O2SAT 95; BMI 28.0
--- NOTE | 2023-04-10 13:54 | A.OFFVIS_ITS ---
Intake Vital Signs 04/10/23 13:54 Height 5 ft 10 in Weight 195 lb BMI 28.0 BP 155/90 H Blood Pressure Location Lt brachial Position Sitting Respiration 16 Pulse 65 Pulse Source Pulse Oximeter Pulse Oximetry (%) 95 Oxygen Delivery Method Room Air Intake Visit Reasons: PILL COUNT/LVM Allergies No Known Allergies Allergy (Verified 04/10/23 13:55) HPI HPI Comments History of Present Illness Details Roni is a very pleasant 58 year old male who presents to the office for follow up chronic pain and chronic opioid therapy management. Patient is prescribed hydrocodone acetaminophen 5-325mg take 1 tablet every 4 hours as needed. Patient arrived today with the expectation of having 36 pills, she presented 50 pills which were counted in the presence of two staff members and returned to the patient in the original prescription bottle. This demonstrates responsible attitude toward patient's opioid medications. Pain is reported today as 6/10 and last dose of pain medication was taken at noon today. Pain is adequately managed on current opioid regimen. Patient denies any recent changes or exacerbations of chronic pain and states he is able to engage in activities of daily living with minimal interruption due to chronic pain. Patient denies side effects including somnolence, constipation, itching, dyspnea, rash, dizziness or weakness. Patient had Right subacromial shoulder injection last month, he reports pain improved since that injection. He has noticed that his chronic back pain was overall improved since that injection as well. Past Procedures and Surgery: 03/13/23: Right subacromial shoulder inj ection, ultrasound guided 01/28/23: Transforaminal epidural steroi d injection, Left L5: % relief for few hours. 08/20/2022: Piriformis Muscle Injection, Left: No relief 07/16/22: Left Diagnostic L4-L5-S1 MBB-0 % pain relief 04/09/22: Right Diagnostic SIJ Innervati on ? No relief. 03/05/22: Bilateral intra-articular corti costeroid SIJ Injection ? 90% relief for 2 days. 12/09/21: Left L2-L3 discectomy and L3-L [address] Griffith 09/18/21: Left L3 TFESI, attempted Left L2- No relief. Review of Systems Const All systems reviewed & are unremarkable except as noted in HPI and below Physical Exam Vital Signs: Last Vital Signs Pulse 65 10/27/23 13:54 Resp 16 04/10/23 13:54 BP 155/90 H 04/10/23 13:54 Pulse Ox 95 04/10/23 13:54 Oxygen Delivery Method Room Air 04/10/23 13:54 BMI result Body Mass Index 28.0 General: awake, alert, oriented. Answers questions appropriately. Fully engaged in examination. Skin: warm, dry, intact HEENT: Normocephalic. Hearing intact. Cardiac: External chest normal in appearance. Respiratory: No cough, audible wheezing or stridor. Abdomen: without gross distension. MS: No obvious swelling or deformities. Able to transition from sit to stand unassisted. Ambulates with antalgic gait Neurological: Oriented to person, place, time and situation. Thought process intact. Psychiatric: Appropriate mood and affect. Good judgment and insight. Assessment & Plan Assessment & Plan (1) Lumbar spondylosis: Code(s): M47.816 - Spondylosis without myelopathy or radiculopathy, lumbar region (2) Failed back syndrome: Code(s): M96.1 - Postlaminectomy syndrome, not elsewhere classified (3) Rotator cuff tendinitis: Code(s): M75.80 - Other shoulder lesions, unspecified shoulder Qualifiers: Laterality: right Qualified Code(s): M75.81 - Other shoulder lesions, right shoulder Plan Masspat was reviewed and without concerns. No obvious signs of diversion, abuse or misuse of the opioid medications. Will send in prescription for hydrocodone/acetaminophen 5-325 mg every 4 hours as needed with an advanced date of 04/17/2023. Patient to follow-up in the office in 1 month, sooner if needed. All questions and concerns have been answered and patient agrees with the plan. Medications: Refilled hydrocodone-acetaminophen 5-325 mg Partial Fill upon patient request. No Tylenol or any other Tylenol products while on this medication. 1 tab PO Q4H 30 days PRN 180 tabs 0RF pain Coding Level of Care Code Est Pt Level 3 (72528) Diagnoses Lumbar spondylosis M47.816 Failed back syndrome M96.1 Tendinitis of right rotator cuff M75.81 Laterality: right
== END 2023-04-10 14:05 | disposition home or self-care (01) ==
PROVIDERS: PCP Internal Medicine; Visit Provider Registered Nurse Emergency
DX: M47.816 Spondylosis without myelopathy or radiculopathy, lumbar region (principal); M96.1 Postlaminectomy syndrome, not elsewhere classified; M75.81 Other shoulder lesions, right shoulder; Z79.891 Long term (current) use of opiate analgesic
CPT/HCPCS: 99213

== ENCOUNTER → 2023-04-10 13:42 | Outpatient (BNVA) | payer MEDICARE, SELFPAY | PROVIDERS: PCP Internal Medicine; Visit Provider Registered Nurse Emergency | DX: Z51.81 Encounter for therapeutic drug level monitoring (principal); F11.20 Opioid dependence, uncomplicated; M47.816 Spondylosis without myelopathy or radiculopathy, lumbar region; M96.1 Postlaminectomy syndrome, not elsewhere classified; M75.81 Other shoulder lesions, right shoulder | CPT/HCPCS: 99212 ==

== ENCOUNTER → 2023-05-11 08:26 | Outpatient (BNVA) | payer MEDICARE, SELFPAY | PROVIDERS: PCP Internal Medicine; Visit Provider Nurse Practitioner Family | DX: M79.18 Myalgia, other site (principal) | CPT/HCPCS: 20553; 99211; J0665 ==

== ENCOUNTER 2023-05-11 09:00 | Outpatient (AMB) | payer MEDICARE, SELFPAY ==
--- NOTE | 2023-05-11 09:00 | A.OFFVIS_ITS ---
Intake Intake Visit Reasons: TPI Allergies No Known Allergies Allergy (Verified 05/11/23 09:00) HPI TPI HPI Details 58-year-old male who presents today to t he office for trigger point injections. Denies any recent cough, cold, infection, fever or other significant changes in medical history since last office visit. Past Procedures and Surgery: 03/13/23: Right subacromial shoulder inj ection, ultrasound guided: 01/28/23: Transforaminal epidural steroi d injection, Left L5: 80% relief for few hours. 08/20/2022: Piriformis Muscle Injection, Left: No relief 07/16/22: Left Diagnostic L4-L5-S1 MBB-0 % pain relief 04/09/22: Right Diagnostic SIJ Innervati on ? No relief. 03/05/22: Bilateral intra-articular corti costeroid SIJ Injection ? 90% relief for 2 days. 12/09/21: Left L2-L3 discectomy and L3-L [address] Griffith 09/18/21: Left L3 TFESI, attempted Left L2- No relief. Review of Systems Const All systems reviewed & are unremarkable except as noted in HPI and below Physical Exam General: Appears afebrile. Alert and oriented. Mood and affect appropriate. Follows and participates in conversation appropriately. Respiratory effort is unlabored. Able to transition from sit to stand unassisted. Ambulates with bilaterally normal heel strike and toe off. Office Procedures Injection Trigger Point Multi Pre-procedure diagnosis: Myofascial pain Post-procedure diagnosis: Myofascial pain Site and number of trigger points: Occipitalis, left Trapezius, left Rhomboid, left Solution: Total volume administered 10 ml (5 ml lidocaine 1% + 5 ml bupivacaine 0.25%). The procedure, its benefits, and its risks were explained to the patient and all questions were answered. Prior to the start of the procedure, a ?time out? was performed to confirm correct patient, procedure, and laterality. Trigger points were identified by manual palpation and marked. The skin was cleaned with Chloraprep. A 1.5 inch 25 G needle was used. Each of the trigger points were approximated and elevated in the direction away from the body. Dry needling then took place for five seconds. Approximately 0.5 ml to 1 ml of injectate was delivered to the trigger point followed by dry needling for five seconds. This process was repeated at each trigger point site. The patient tolerated the procedure well. The patient tolerated the procedure well, without complication. The patient denied any numbness, paresthesias, or weakness. Post-procedure vitals were recorded as part of the nursing discharge note in electronic medical record. Following a period of observation, the patient was discharged in stable condition with written discharge instructions. Trigger Point Multiple: 98885- Trigger point injection =/>3 Results Reviewed Results Reviewed: No imaging is available for review. Assessment & Plan Assessment & Plan (1) Myofascial pain: Code(s): M79.18 - Myalgia, other site Plan Patient is status post left Neck and shoulder trigger point injections. Patient tolerated procedure well and was discharged home in stable condition with discharge instructions. All questions were answered. We will follow-up to assess response to therapy and repeat as needed. Scribed for Dr. Mckeno by Hipolito Abdi, outside medical sales representative, on 05/11/2023. I, Dr. Mckeon, have personally reviewed and agree with the information entered by the scribe. Coding Level of Care Code Procedure Only Diagnoses Myofascial pain M79.18 CPT Codes Details - Trigger Point Multiple: 51782- Trigger point injection =/>3 ([id number])
--- OUTSIDE RECORDS SUMMARY | 2023-05-11 09:02 | XMS_ITS | Continuity of Care Document ---
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 Name Role Phone Alok Mccormack MD Primary Care Physician Encounter [facility] Date(s): 07/18/19 - 07/18/[address] [address]- [facility] Discharge Disposition: A-D/C Home Attending Physician: Kvng Esquivel MD Admitting Physician: Kvng Esquivel MD Referring Physician: Not on Staff, Referring MD Allergies, Adverse Reactions, Alerts Substance Reaction Severity Status NKA Active Medications Alprazolam By Mouth, Refills 0, Maintenance, 07/18/19 13:17:00 EST Start Date: 07/18/19 Status: Ordered Duloxetine By Mouth, 0 Refills, Maintenance, 07/18/19 13:17:00 EST Start Date: 07/18/19 Status: Ordered gabapentin 600 mg oral tablet 1 tablet = 600 mg, By Mouth, 3 times a day, 0 Refills, Maintenance, 07/18/19 13:16:00 EST Start Date: 07/18/19 Status: Ordered Simvastatin By Mouth, 0 Refills, Maintenance, 07/18/19 13:16:00 EST Start Date: 07/18/19 Status: Ordered Tamsulosin 0.4 mg, By Mouth, Daily, Refills 0, Maintenance, 07/18/19 13:17:00 EST Start Date: 07/18/19 Status: Ordered Tizanidine By Mouth, Refills 0, Maintenance, 07/18/19 13:16:00 EST Start Date: 07/18/19 Status: Ordered traMADol 50 mg oral tablet 1 tablet = 50 mg, By Mouth, Every 4 hours, 0 Refills, Maintenance, 07/18/19 13:16:00 EST Start Date: 07/18/19 Status: Ordered Vital Signs Most recent to oldest [Reference Range]: 1 2 Height 173 cm (07/18/19 1:10 PM) Weight 86.3 kg (07/18/19 1:10 PM) Oxygen Saturation [94-100 %] 100 % (07/18/19 3:47 PM) 100 % (07/18/19 1:10 PM) Pulse Rate [55-90 bpm] 82 bpm (07/18/19 3:47 PM) 80 bpm (07/18/19 1:10 PM) Blood Pressure [90-138/55-84 mm Hg] 122/ 78mm Hg (07/18/19 3:47 PM) 125/77mm Hg (07/18/19 1:10 PM) Respiratory Rate [16-30 br/min] 16 br/mi n (07/18/19 3:47 PM) 16 br/min (07/18/19 1:10 PM) Temperature [96.8-100.4 DegF] 98 DegF (07/18/19 1:10 PM) Mode of Delivery (Oxygen) Room air (07/18/19 3:47 PM) Room air (07/18/19 1:10 PM) Temperature Route Oral (07/18/19 1:10 PM) Dry Weight 86.3 kg (07/18/19 1:10 PM) Weight Obtained Via Standing scale (07/18/19 1:10 PM) Social History Social History Type Response Smoking Status Never (less than 100 in lifetime) entered on: 07/18/19 Sex
== END 2023-05-11 09:31 | disposition home or self-care (01) ==
LOC: HO.PMC 09:00
PROVIDERS: PCP Internal Medicine; Visit Provider Internal Medicine
DX: M79.18 Myalgia, other site (principal)
CPT/HCPCS: 20553

== ENCOUNTER 2023-06-05 10:03 | Outpatient (AMB) | payer MEDICARE, SELFPAY ==
--- NOTE | 2023-06-05 10:06 | A.OFFVIS_ITS ---
Intake Vital Signs 06/05/23 10:07 Height 5 ft 10 in Weight 195 lb BMI 28.0 Blood Pressure Location Lt brachial Position Sitting Respiration 12 Pulse 55 Pulse Source Pulse Oximeter Pulse Oximetry (%) 98 Oxygen Delivery Method Room Air Intake Visit Reasons: Medication Count Intake Note: Pt states he last took vicodin 06/05/23 @ 8am Allergies No Known Allergies Allergy (Verified 06/05/23 10:08) Medication List - Last Reconciled 06/05/23 by Loida Louie LPN alprazolam 0.5 mg PO TID PRN djbjjxbje-udjvwzkk-jiassai ala 50-200-25 mg (Biktarvy) 1 tab PO DAILY doxycycline hyclate 100 mg PO DAILY fluoxetine 20 mg PO DAILY fluticasone propionate 50 mcg/actuation 1 spray intranasal BID gabapentin 600 mg PO QID 30 days hydrocodone-acetaminophen 5-325 mg 1 tab PO Q4H PRN 30 days lidocaine 5% 1 patch topically; meclizine 25 mg PO DAILY PRN mupirocin 2% topical DAILY naloxone 4 mg/actuation (Narcan) 4 mg intranasal Q2M PRN omeprazole 40 mg PO DAILY simvastatin 20 mg PO BEDTIME terbinafine HCl 250 mg PO DAILY zolpidem 5 mg PO BEDTIME PRN HPI Medication Count HPI Details 58-year-old male who presents today to t he office for a medication count. 78 pills were expected, and 82 pills wer e presented. He reports neck and shoulder pain that radiates down to his arms. He reports occasional numbness in the left-hand fingers. He has also noticed weakness on the left side. He has been dropping items from his hands more frequently recently. He states that his whole hand was numb about two years ago, which eventually resolved. He is not interested in neck surgery at this time. He had neck injections several years ago that were effective. He is using Motrin and Tylenol for pain management. He also requested a refill of lidocaine patches. Past Procedures and Surgery: 05/11/2023: Left Neck and shoulder natalie er point injections: No relief. 03/13/23: Right subacromial shoulder inj ection, ultrasound guided: More than 50% relief 01/28/23: Transforaminal epidural steroi d injection, Left L5: 80% relief for few hours. 08/20/2022: Piriformis Muscle Injection, Left: No relief 07/16/22: Left Diagnostic L4-L5-S1 MBB: No pain relief 04/09/22: Right Diagnostic SIJ Innervati on: No relief. 03/05/22: Bilateral intra-articular corti costeroid SIJ Injection ? 90% relief for 2 days. 12/09/21: Left L2-L3 discectomy and L3-L [address] Griffith 09/18/21: Left L3 TFESI, attempted Left L2- No relief. Review of Systems Const All systems reviewed & are unremarkable except as noted in HPI and below Physical Exam Vital Signs: Last Vital Signs Pulse 55 06/05/23 10:07 Resp 12 06/05/23 10:07 Pulse Ox 98 06/05/23 10:07 Oxygen Delivery Method Room Air 06/05/23 10:07 BMI result Body Mass Index 28.0 General: Appears afebrile. Alert and oriented. Mood and affect appropriate. Follows and participates in conversation appropriately. Respiratory effort is unlabored. Able to transition from sit to stand unassisted. Ambulates with bilaterally normal heel strike and toe off. Cervical extension is limited Cervical flexion reproduces pain Facet loading is positive on the left side Results Reviewed Results Reviewed: No imaging is available for review. 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 Pill count is consistent. Patient will follow up in one month for pill count and refill. Will schedule him for a left parasagittal interlaminar C7-T1 CARLIE for cervical radiculopathy. Discussed the risks and benefits of the procedure with the patient in detail. All questions were answered. The patient is on board with the plan. In the meantime, I recommended taking Celebrex 100 mg for her pain. I also offered referral to Neurosurgery for discussing surgical intervention but the patient would like to defer that at this time. 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 Patient expressed understanding. Justification for interventional therapy: ? Patient with average pain > 6/10 ? Patient has exhausted conservative therapy ? Patient unable to tolerate physical therapy due to pain. Scribed for Dr. Mckeon by Hipolito Abdi, medical transcriptionist, on 06/05/2023. I, Dr. Mckeon, have personally reviewed and agree with the information entered by the scribe. Medications: New celecoxib 100 mg PO BID PRN 60 caps 5RF pain Refilled hydrocodone-acetaminophen 5-325 mg Partial Fill upon patient request. No Tylenol or any other Tylenol products while on this medication. 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
[2023-06-05 10:07] VITALS: PULSE 55; RESP 12; O2SAT 98; BMI 28.0
== END 2023-06-05 10:46 | disposition home or self-care (01) ==
PROVIDERS: PCP Internal Medicine; Visit Provider Internal Medicine
DX: M54.12 Radiculopathy, cervical region (principal); Z79.891 Long term (current) use of opiate analgesic
CPT/HCPCS: 99214

== ENCOUNTER → 2023-06-05 10:03 | Outpatient (BNVA) | payer MEDICARE, SELFPAY | PROVIDERS: PCP Internal Medicine; Visit Provider Internal Medicine | DX: Z51.81 Encounter for therapeutic drug level monitoring (principal); M54.12 Radiculopathy, cervical region; Z79.891 Long term (current) use of opiate analgesic | CPT/HCPCS: 99212 ==

== ENCOUNTER 2023-07-16 06:06 | Outpatient (REF) | payer MEDICARE, SELFPAY ==
--- NOTE | ~2023-07-16 | FL_ITS ---
EXAMINATION: Intraoperative fluoroscopy CLINICAL INFORMATION: Radiculopathy, cervical region COMPARISON: None. TECHNIQUE: Intraoperative fluoroscopy was provided for use by Dr. Mckeon. A total of 2 images were saved to PACS. A radiologist was not present during imaging. Today's dictation is only for administrative purposes to document intraoperative fluoroscopic usage. TOTAL FLUOROSCOPIC TIME: 0.2 minutes DAP: 0.007 mGy-cm FL/FL guidance in treatment room FINDINGS~\^^ Intraoperative fluoroscopy provided for use by Dr. Mckeon. Please see operative note for detailed findings.
== END 2023-07-16 06:07 | disposition home or self-care (01) ==
LOC: CF 06:06
PROVIDERS: Visit Provider Internal Medicine
DX: M54.12 Radiculopathy, cervical region (principal); Z79.891 Long term (current) use of opiate analgesic
CPT/HCPCS: 62321; J1100; J2795; Q9967

== ENCOUNTER 2023-07-16 08:09 | Outpatient (AMB) | payer MEDICARE, SELFPAY ==
[2023-07-16 08:15] VITALS: BP 132/68; PULSE 58; RESP 16; O2SAT 98; BMI 28.0
--- NOTE | 2023-07-16 08:15 | A.OFFVIS_ITS ---
Intake Vital Signs 07/16/23 08:15 07/16/23 09:12 Height 5 ft 10 in 5 ft 10 in Weight 195 lb 195 lb BMI 28.0 28.0 BP 132/68 122/72 Blood Pressure Location Rt brachial Rt brachial Position Sitting Sitting Respiration 16 16 Pulse 58 52 Pulse Source Pulse Oximeter Pulse Oximeter Pulse Oximetry (%) 98 99 Oxygen Delivery Method Room Air Room Air Comment Pre-Op Post-Op Intake Visit Reasons: Left parasag interlaminar C7-T1 CARLIE /pill count Intake Note: Pill count to hydrocodone-acetaminophen also performed, patient should have 12 and presents with 18 tablets which he last took today 07/16/23 at 7am. Transportation Solutions Manager Required: No Accompanied by: Spouse Allergies No Known Allergies Allergy (Verified 07/16/23 08:16) HPI Left parasag interlaminar C7-T1 CARLIE /pill count HPI Details Patient presents for scheduled procedure. Denies any recent cough, col d, infection, fever or other significant changes in medical history since last office visit. Physical Exam Vital Signs: Last Vital Signs Pulse 58 07/16/23 08:15 Resp 16 07/16/23 08:15 BP 132/68 07/16/23 08:15 Pulse Ox 98 07/16/23 08:15 Oxygen Delivery Method Room Air 07/16/23 08:15 BMI result Body Mass Index 28.0 Office Procedures Joint Injection/Drain Joint Injection/Drain Details: Interlaminar epidural steroid injection, C7/T1, Left parasaggital After obtaining written consent, pre-procedure blood pressure and heart rate were stable and recorded in the nursing record. Standard monitors were applied. The patient was placed in the prone position. The cervicothoracic area was widely prepped with chloraprep and draped in sterile fashion. Fluoroscopic guidance was used to identify the desired interlaminar space and for needle placement. Subcutaneous 0.5% lidocaine was used to anesthetize the skin overlying the target. A 20-gauge Elias needle was advanced to the epidural space using loss of resistance to contrast technique under fluoroscopic AP and contralateral oblique views. There was no evidence of heme or CSF and no paresthesias were elicited with needle placement. Confirmation of epidural needle placement was performed with 1cc of omnipaque 180. Next 3 ml 0.5% lidocaine mixed with 10 mg Dexamethasone was administered epidurally with no pain elicited on injection. The needle tract tubing was then cleared with 1 ml of 0.5% lidocaine. The needle was removed, skin cleansed and a sterile bandage was applied. The patient tolerated the procedure well and no complications were encountered. Following the procedure the patient's vital signs were stable. The patient was discharged home in good condition with post-procedural instructions. Time Out: Immediately prior to the procedure, the following was verbally confirmed that there is a signed consent form and that the correct patient, planned procedure, site and side are consistent with documentation and that necessary equipment and/or blood products are available prior to the start of the case. Complications: none EBL: <5 cc Coding 18492 - Cervical Epidural/Interlaminar with fluoroscopy Procedure code (CPT) selection complete Assessment & Plan Assessment & Plan (1) Cervical radiculopathy: Code(s): M54.12 - Radiculopathy, cervical region Plan Patient is status post left parasagittal interlaminar C7/T1 ACRLIE. Patient tolerated procedure well and was discharged home in stable condition with discharge instructions. All questions were answered. We will follow-up via telephone or in clinic to assess response to therapy. A follow-up appointment was made during today's visit. Orders: Orders FL guidance in treatment room Today M54.12 - Radiculopathy, cervical region Coding Level of Care Code Procedure Only Diagnoses Cervical radiculopathy M54.12 CPT Codes Coding - Joint 10: 10678 - Cervical Epidural/Interlaminar with fluoroscopy ([id number])
[2023-07-16 09:12] VITALS: BP 122/72; PULSE 52; RESP 16; O2SAT 99; BMI 28.0
== END 2023-07-16 09:08 | disposition home or self-care (01) ==
LOC: HO.PMCPRC 08:09
PROVIDERS: PCP Internal Medicine; Visit Provider Internal Medicine
DX: M54.12 Radiculopathy, cervical region (principal)
CPT/HCPCS: 62321

== ENCOUNTER 2023-08-14 07:58 | Outpatient (AMB) | payer MEDICARE, SELFPAY ==
--- NOTE | 2023-08-14 08:09 | A.OFFVIS_ITS ---
Intake Vital Signs 08/14/23 08:10 Height 5 ft 10 in Weight 191 lb BMI 27.4 BP 122/78 Blood Pressure Location Lt brachial Position Sitting Respiration 12 Pulse 57 Pulse Source Pulse Oximeter Pulse Oximetry (%) 98 Oxygen Delivery Method Room Air Intake Visit Reasons: s/p C7-T1 CARLIE/ pill count Intake Note: Pt states he last took vicodin 08/14/23 @ 6am Allergies No Known Allergies Allergy (Verified 08/14/23 08:11) Medication List - Last Reconciled 08/14/23 by Loida Louie LPN albuterol sulfate 90 mcg/actuation 2 puffs inhalation Q6H PRN alprazolam 0.5 mg PO TID PRN jkbiqwmey-fcejmbze-cdlrhxo ala 50-200-25 mg (Biktarvy) 1 tab PO DAILY celecoxib 100 mg PO BID PRN chlorhexidine gluconate 0.12% 15 mL PO BID doxycycline hyclate 100 mg PO DAILY ferrous sulfate 324 mg PO 3XW fluoxetine 20 mg PO DAILY fluticasone propionate 50 mcg/actuation 1 spray intranasal BID gabapentin 600 mg PO QID hydrocodone-acetaminophen 5-325 mg 1 tab PO Q4H PRN 30 days lidocaine 5% 1 patch topical DAILY meclizine 25 mg PO DAILY PRN mupirocin 2% topical DAILY naloxone 4 mg/actuation (Narcan) 4 mg intranasal Q2M PRN omeprazole 40 mg PO DAILY simvastatin 20 mg PO BEDTIME terbinafine HCl 250 mg PO DAILY zolpidem 5 mg PO BEDTIME PRN HPI s/p C7-T1 CARLIE/ pill count HPI Details 58-year-old male who presents today to t he office for a status post C7- T1 CARLIE. 30 pills were expected, and 38 pills wer e presented. The patient reports significant improvement in his sharp radiating pain from the neck down to his arm. He still experiences mild pain in his neck muscles on both sides. He noticed a crunching sensation in his neck with movements. He reports back pain that radiates to his buttocks. He suspects that his pain is due to the scar tissue in his back. He inquired about different treatment options for the scar tissues. He has not had good results with facet and transforaminal injections. He does not recall if he has previously had a caudal injection. Past Procedures and Surgery: 07/16/23: Interlaminar epidural steroid i njection, C7/T1, Left parasaggital: 60- 70% relief. 05/11/2023: Left Neck and shoulder antalie er point injections: No relief. 03/13/23: Right subacromial shoulder inj ection, ultrasound guided: More than 50% relief 01/28/23: Transforaminal epidural steroi d injection, Left L5: 80% relief for few hours. 08/20/2022: Piriformis Muscle Injection, Left: No relief 07/16/22: Left Diagnostic L4-L5-S1 MBB: No pain relief 04/09/22: Right Diagnostic SIJ Innervati on: No relief. 03/05/22: Bilateral intra-articular corti costeroid SIJ Injection ? 90% relief for 2 days. 12/09/21: Left L2-L3 discectomy and L3-L [address] Griffith 09/18/21: Left L3 TFESI, attempted Left L2- No relief. Review of Systems Const All systems reviewed & are unremarkable except as noted in HPI and below Physical Exam Vital Signs: Last Vital Signs Pulse 57 08/14/23 08:10 Resp 12 08/14/23 08:10 BP 122/78 08/14/23 08:10 Pulse Ox 98 08/14/23 08:10 Oxygen Delivery Method Room Air 08/14/23 08:10 BMI result Body Mass Index 27.4 General: Appears afebrile. Alert and oriented. Mood and affect appropriate. Follows and participates in conversation appropriately. Respiratory effort is unlabored. Able to transition from sit to stand unassisted. Ambulates with bilaterally normal heel strike and toe off. Straight leg raise is positive on the left side. Results Reviewed Results Reviewed: No imaging is available for review. 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 Discussed the risks and benefits of the procedure with the patient in detail. All questions were answered. The patient is on board with the plan. Justification for interventional therapy: ? Patient with average pain > 6/10 ? Patient has exhausted conservative therapy ? Patient unable to tolerate physical therapy due to pain 30 pills were expected, and 38 pills were presented. His Vicodin was renewed starting 08/19/23. Scribed for Dr. Mckeon by Hipolito Abdi, medical assisting instructor, on 08/14/2023. I, Dr. Mckeon, have personally reviewed and agree with the information entered by the scribe. Medications: Refilled hydrocodone-acetaminophen 5-325 mg Partial Fill upon patient request. No Tylenol or any other Tylenol products while on this medication. 1 tab PO Q4H 30 days PRN 180 tabs 0RF pain Coding Level of Care Code Est Pt Level 4 (12427) Diagnoses [facility] (current) use of opiate analgesic Z79.891 Cervical radiculopathy M54.12 Failed back syndrome M96.1 Lumbar radiculitis M54.16
[2023-08-14 08:10] VITALS: BP 122/78; PULSE 57; RESP 12; O2SAT 98; BMI 27.4
== END 2023-08-14 08:38 | disposition home or self-care (01) ==
PROVIDERS: PCP Internal Medicine; Visit Provider Internal Medicine
DX: M54.12 Radiculopathy, cervical region (principal); M96.1 Postlaminectomy syndrome, not elsewhere classified; M54.16 Radiculopathy, lumbar region; Z79.891 Long term (current) use of opiate analgesic
CPT/HCPCS: 99214

== ENCOUNTER → 2023-08-14 07:58 | Outpatient (BNVA) | payer MEDICARE, SELFPAY | PROVIDERS: PCP Internal Medicine; Visit Provider Internal Medicine | DX: Z51.81 Encounter for therapeutic drug level monitoring (principal); M54.12 Radiculopathy, cervical region; M96.1 Postlaminectomy syndrome, not elsewhere classified; M54.16 Radiculopathy, lumbar region; Z79.891 Long term (current) use of opiate analgesic | CPT/HCPCS: 99212 ==

== ENCOUNTER 2023-09-10 07:27 | Outpatient (REF) | payer MEDICARE, MEDICAID, SELFPAY ==
--- NOTE | ~2023-09-10 | FL_ITS ---
EXAMINATION: XR FLUOROSCOPY WITH IMAGES CLINICAL INFORMATION: Lumbar spinal stenosis, without neurogenic claudication. COMPARISON: Intraoperative fluoroscopy dated 07/16/2023. TECHNIQUE: Fluoroscopy Supervised By: Dr. Sharda Finch. Fluoroscopy Time: 0.2 minutes. Cumulative Dose: 2.82 mGy. DAP: 0.0390 mGym2. Images: 3. FINDINGS: The submitted images show an injection needle with injected contrast in the vicinity of left sacral foramina. FL/FL guidance in treatment room IMPRESSION: Intraoperative fluoroscopic guidance is provided during lumbosacral spine pain management procedure. Please see the patient's Operative Report for full procedural details.
== END 2023-09-10 07:28 | disposition home or self-care (01) ==
LOC: CF 07:27
PROVIDERS: Visit Provider Internal Medicine
DX: M48.061 Spinal stenosis, lumbar region without neurogenic claudication (principal); M54.16 Radiculopathy, lumbar region; M96.1 Postlaminectomy syndrome, not elsewhere classified; Z79.891 Long term (current) use of opiate analgesic
CPT/HCPCS: 62323; J1100; J3301; Q9967

== ENCOUNTER 2023-09-10 09:54 | Outpatient (AMB) | payer MEDICARE, SELFPAY ==
--- NOTE | 2023-09-10 09:54 | A.OFFVIS_ITS ---
Intake Vital Signs 09/10/23 09:55 09/10/23 11:02 Height 5 ft 10 in Weight 191 lb BMI 27.4 BP 132/78 126/80 Blood Pressure Location Lt brachial Lt brachial Position Sitting Sitting Respiration 16 16 Pulse 60 74 Pulse Source Pulse Oximeter Pulse Oximeter Pulse Oximetry (%) 99 96 Oxygen Delivery Method Room Air Room Air Comment Pre-op Post-op Intake Visit Reasons: Left biased caudal CARLEI Allergies No Known Allergies Allergy (Verified 08/14/23 08:11) HPI Left biased caudal CARLIE HPI Details Patient presents for scheduled procedure. Denies any recent cough, cold, infection, fever or other significant changes in medical history since last office visit. Physical Exam Vital Signs: Last Vital Signs Pulse 60 09/10/23 09:55 Resp 16 09/10/23 09:55 BP 132/78 09/10/23 09:55 Pulse Ox 99 09/10/23 09:55 Oxygen Delivery Method Room Air 09/10/23 09:55 BMI result Body Mass Index 27.4 Office Procedures Joint Injection/Drain Joint Injection/Drain Details: Caudal CARLIE with catheter After obtaining written consent, pre-procedure blood pressure and pulse were measured. The patient was placed in the prone position. The lumbosacral area was widely prepped with chloraprep and draped in sterile fashion. The skin overlying the target was anesthetized with 0.5% lidocaine. A 17 G needle was used to access the caudal epidural space using anatomic landmarks and x-ray guidance. We then threaded a catheter up to the L5/S1 level and injected contrast 1cc omnipaque 180 for verification of epidural spread. Following negative aspiration of heme or CSF, 10 mL of NS and then a mixture of 5 ml 0.5% lidocaine with 80 mg triamcinilone was injected with minimal pressure into the epidural space. The needle was removed, skin cleansed and a sterile bandage was applied. The patient tolerated the procedure well and no complications were encountered. Following the procedure the patient's vital signs were stable. The patient was discharged home in good condition with post-procedural instructions. Time Out: Immediately prior to the procedure, the following was verbally confirmed that there is a signed consent form and that the correct patient, planned procedure, site and side are consistent with documentation and that necessary equipment and/or blood products are available prior to the start of the case. Complications: none EBL: <5 cc Coding 14042 - Caudal/Lumbar Epidural/Interlaminar with fluoroscopy Procedure code (CPT) selection complete Assessment & Plan Assessment & Plan (1) Lumbar radiculitis: Code(s): M54.16 - Radiculopathy, lumbar region (2) [facility] (current) use of opiate analgesic: Code(s): Z79.891 - terminologist (current) use of opiate analgesic (3) Failed back syndrome: Code(s): M96.1 - Postlaminectomy syndrome, not elsewhere classified Plan Patient is status post left biased caudal epidural steroid injection with catheter. Patient tolerated procedure well and was discharged home in stable condition with discharge instructions. All questions were answered. Pill count was consistent. Next refill for Vicodin sent starting 09/19/2023. Orders: Orders FL guidance in treatment room Today M48.061 - Spinal stenosis, lumbar region without neurogenic claudication Sharda Finch, LOGGING TRACTOR OPERATOR, AUTOMOTIVE GLASS INSTALLER Medications: Refilled hydrocodone-acetaminophen 5-325 mg Partial Fill upon patient request. No Tylenol or any other Tylenol products while on this medication. 1 tab PO Q4H 30 days PRN 180 tabs 0RF pain Edmond Mckeon MD Coding Level of Care Code Procedure Only Diagnoses Lumbar radiculitis M54.16 [facility] (current) use of opiate analgesic Z79.891 Failed back syndrome M96.1 CPT Codes Coding - Joint 11: 15247 - Caudal/Lumbar Epidural/Interlaminar with fluoroscopy ([id number])
[2023-09-10 09:55] VITALS: BP 132/78; PULSE 60; RESP 16; O2SAT 99; BMI 27.4
[2023-09-10 11:02] VITALS: BP 126/80; PULSE 74; RESP 16; O2SAT 96
== END 2023-09-10 11:02 | disposition home or self-care (01) ==
LOC: HO.PMCPRC 09:54
PROVIDERS: PCP Internal Medicine; Visit Provider Internal Medicine
DX: M54.16 Radiculopathy, lumbar region (principal); M96.1 Postlaminectomy syndrome, not elsewhere classified; Z79.891 Long term (current) use of opiate analgesic
CPT/HCPCS: 62323

== ENCOUNTER 2023-10-09 08:05 | Outpatient (AMB) | payer MEDICARE, MEDICAID, SELFPAY ==
[2023-10-09 08:14] VITALS: BP 125/66; PULSE 59; RESP 14; O2SAT 99; BMI 27.8
--- NOTE | 2023-10-09 08:14 | A.OFFVIS_ITS ---
Vital Signs 10/09/23 08:14 Height 5 ft 10 in Weight 194 lb BMI 27.8 BP 125/66 Blood Pressure Location Lt brachial Position Sitting Respiration 14 Pulse 59 Pulse Source Pulse Oximeter Pulse Oximetry (%) 99 Oxygen Delivery Method Room Air Intake Visit Reasons: s/p caudal CARLIE + pill count Intake Note: Pt states he last took vicodin 10/09/23 @ 7am Allergies No Known Allergies Allergy (Verified 10/09/23 08:16) Medication List - Last Reconciled 10/09/23 by Loida Louie LPN albuterol sulfate 90 mcg/actuation 2 puffs inhalation Q6H PRN alprazolam 0.5 mg PO TID PRN yligfpilj-uhmoqnol-bxrzadb ala 50-200-25 mg (Biktarvy) 1 tab PO DAILY celecoxib 100 mg PO BID PRN chlorhexidine gluconate 0.12% 15 mL PO BID doxycycline hyclate 100 mg PO DAILY ferrous sulfate 324 mg PO 3XW fluoxetine 20 mg PO DAILY fluticasone propionate 50 mcg/actuation 1 spray intranasal BID gabapentin 600 mg PO QID hydrocodone-acetaminophen 5-325 mg 1 tab PO Q4H PRN 30 days lidocaine 5% 1 patch topical DAILY meclizine 25 mg PO DAILY PRN mupirocin 2% topical DAILY naloxone 4 mg/actuation (Narcan) 4 mg intranasal Q2M PRN omeprazole 40 mg PO DAILY simvastatin 20 mg PO BEDTIME terbinafine HCl 250 mg PO DAILY zolpidem 5 mg PO BEDTIME PRN HPI HPI s/p caudal CARLIE + pill count: Details: 58-year-old male who presents today to the office for a status post caudal CARLIE and pill count. 64 pills were expected, and 65 pills were presented. He reports more than 50% relief with this resolution of sharp shooting pains with movement. He still has pain in his knee. He is able to walk and stand without pain. He has not had nerve surgery yet. He reports shoulder pain, which is worse in the morning after waking up. He reports muscle cramps on the back of the calf and occasionally on the thigh every night after lying down on the bed. His recent blood work last week was WNL. Past procedures 09/10/2023: Caudal CARLIE with catheter: 50% relief. 07/16/23: Interlaminar epidural steroid injection, C7/T1, Left parasaggital: 60- 70% relief. 05/11/2023: Left Neck and shoulder trigger point injections: No relief. 03/13/23: Right subacromial shoulder injection, ultrasound guided: More than 50% relief 01/28/23: Transforaminal epidural steroid injection, Left L5: 80% relief for few hours. 08/20/2022: Piriformis Muscle Injection, Left: No relief 07/16/22: Left Diagnostic L4-L5-S1 MBB: No pain relief 04/09/22: Right Diagnostic SIJ Innervation: No relief. 03/05/22: Bilateral intra-articular corticosteroid SIJ Injection ? 90% relief for 2 days. 12/09/21: Left L2-L3 discectomy and L3-L4 decompression by Dr. Griffith 09/18/21: Left L3 TFESI, attempted Left L2- No relief. Review of Systems Const All systems reviewed & are unremarkable except as noted in HPI and below Physical Exam Vital Signs: Last Vital Signs Pulse 59 10/09/23 08:14 Resp 14 10/09/23 08:14 BP 125/66 10/09/23 08:14 Pulse Ox 99 10/09/23 08:14 Oxygen Delivery Method Room Air 10/09/23 08:14 BMI result Body Mass Index 27.8 General: Appears afebrile. Alert and oriented. Mood and affect appropriate. Follows and participates in conversation appropriately. Respiratory effort is unlabored. Able to transition from sit to stand unassisted. Ambulates with bilaterally normal heel strike and toe off. Results Reviewed Results Reviewed: No imaging is available for review. 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 His Vicodin was renewed starting 10/19/23. The patient will call to reschedule the procedure for his pain as needed. We can repeat the procedure quarterly. Scribed for Dr. Mckeon by Hipolito Abdi, biomedical analytical scientist, on 10/09/2023. I, Dr. Mckeon, have personally reviewed and agree with the information entered by the scribe. Medications: Refilled hydrocodone-acetaminophen 5-325 mg Partial Fill upon patient request. No Tylenol or any other Tylenol products while on this medication. 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
== END 2023-10-09 08:54 | disposition home or self-care (01) ==
PROVIDERS: PCP Internal Medicine; Visit Provider Internal Medicine
DX: M54.16 Radiculopathy, lumbar region (principal); Z79.891 Long term (current) use of opiate analgesic; M96.1 Postlaminectomy syndrome, not elsewhere classified
CPT/HCPCS: 99213

== ENCOUNTER → 2023-10-09 08:05 | Outpatient (BNVA) | payer MEDICARE, SELFPAY | PROVIDERS: PCP Internal Medicine; Visit Provider Internal Medicine | DX: M54.16 Radiculopathy, lumbar region (principal); M96.1 Postlaminectomy syndrome, not elsewhere classified; Z79.891 Long term (current) use of opiate analgesic | CPT/HCPCS: 99212 ==

== ENCOUNTER 2023-11-13 08:36 | Outpatient (AMB) | payer MEDICARE, MEDICAID, SELFPAY ==
[2023-11-13 08:40] VITALS: BP 120/63; PULSE 57; RESP 14; O2SAT 97; BMI 27.8
--- NOTE | 2023-11-13 08:40 | MHC.OFFVIS ---
Vital Signs 11/13/23 08:40 Height 5 ft 10 in Weight 194 lb BMI 27.8 BP 120/63 Blood Pressure Location Lt brachial Position Sitting Respiration 14 Pulse 57 Pulse Source Pulse Oximeter Pulse Oximetry (%) 97 Oxygen Delivery Method Room Air Intake Visit Reasons: PILL COUNT Intake Note: Pt states he last took vicodin 11/13/23 @ 6am Allergies No Known Allergies Allergy (Verified 11/13/23 08:43) Medication List - Last Reconciled 11/13/23 by Loida Louie LPN albuterol sulfate 90 mcg/actuation 2 puffs inhalation Q6H PRN alprazolam 0.5 mg PO TID PRN jrjrpvcun-kuocoino-zrflblq ala 50-200-25 mg (Biktarvy) 1 tab PO DAILY celecoxib 100 mg PO BID PRN chlorhexidine gluconate 0.12% 15 mL PO BID doxycycline hyclate 100 mg PO DAILY ferrous sulfate 324 mg PO 3XW fluoxetine 20 mg PO DAILY fluticasone propionate 50 mcg/actuation 1 spray intranasal BID gabapentin 600 mg PO QID hydrocodone-acetaminophen 5-325 mg 1 tab PO Q4H PRN 30 days lidocaine 5% 1 patch topical DAILY meclizine 25 mg PO DAILY PRN mupirocin 2% topical DAILY naloxone 4 mg/actuation (Narcan) 4 mg intranasal Q2M PRN omeprazole 40 mg PO DAILY simvastatin 20 mg PO BEDTIME terbinafine HCl 250 mg PO DAILY zolpidem 5 mg PO BEDTIME PRN HPI HPI PILL COUNT: Details: 58-year-old male who presents today to the office for a pill count. 30 pills were expected, and 38 pills were presented. Roni was reporting increasing left shoulder pain that interferes with his driving. He also has pain in his axial neck and that is worse with extension on the left side. He reports pins and needle sensation in his shoulder region. Past procedures 09/10/2023: Caudal CARLIE with catheter: 50% relief. 07/16/23: Interlaminar epidural steroid injection, C7/T1, Left parasaggital: 60-70% relief. 05/11/2023: Left Neck and shoulder trigger point injections: No relief. 03/13/23: Right subacromial shoulder injection, ultrasound guided: More than 50% relief 01/28/23: Transforaminal epidural steroid injection, Left L5: 80% relief for few hours. 08/20/2022: Piriformis Muscle Injection, Left: No relief 07/16/22: Left Diagnostic L4-L5-S1 MBB: No pain relief 04/09/22: Right Diagnostic SIJ Innervation: No relief. 03/05/22: Bilateral intra-articular corticosteroid SIJ Injection ? 90% relief for 2 days. 12/09/21: Left L2-L3 discectomy and L3-L4 decompression by Dr. Griffith 09/18/21: Left L3 TFESI, attempted Left L2- No relief. Review of Systems Const All systems reviewed & are unremarkable except as noted in HPI and below Physical Exam Vital Signs: Last Vital Signs Pulse 57 11/13/23 08:40 Resp 14 11/13/23 08:40 BP 120/63 11/13/23 08:40 Pulse Ox 97 11/13/23 08:40 Oxygen Delivery Method Room Air 11/13/23 08:40 BMI result Body Mass Index 27.8 General: Appears afebrile. Alert and oriented. Mood and affect appropriate. Follows and participates in conversation appropriately. Respiratory effort is unlabored. Able to transition from sit to stand unassisted. Ambulates with bilaterally normal heel strike and toe off. Cervical extension reproduces pain. Results Reviewed Results Reviewed: No imaging is available for review. 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 His Vicodin was renewed starting 11/18/23. Discussed temporary nerve stimulator vs. RFA as a possible treatment option. Will schedule him for a bilateral C4-C5-C6 diagnostic medial branch blocks one side followed by the other one week later, starting with the left side. Discussed the risks and benefits of the procedure with the patient in detail. All questions were answered. The patient is on board with the plan. Justification for interventional therapy: ? Patient with average pain > 6/10 ? Patient has exhausted conservative therapy ? Patient unable to tolerate physical therapy due to pain . Patient has a good understanding of their pain condition and has appropriate mental and social support Scribed for Dr. Mckeon by Hipolito Abdi, certified medical biller, on 11/13/2023. I, Dr. Mckeon, have personally reviewed and agree with the information entered by the scribe. Medications: Refilled hydrocodone-acetaminophen 5-325 mg Partial Fill upon patient request. No Tylenol or any other Tylenol products while on this medication. 1 tab PO Q4H PRN 180 tabs 0RF pain 30 days Coding Level of Care Code Est Pt Level 3 (72931) Diagnoses Cervical spondylosis M47.812 long term care administrator (current) use of opiate analgesic Z79.891
== END 2023-11-13 09:04 | disposition home or self-care (01) ==
PROVIDERS: PCP Internal Medicine; Visit Provider Internal Medicine
DX: M47.812 Spondylosis without myelopathy or radiculopathy, cervical region (principal); Z79.891 Long term (current) use of opiate analgesic
CPT/HCPCS: 99213

== ENCOUNTER → 2023-11-13 08:36 | Outpatient (BNVA) | payer MEDICARE, SELFPAY | PROVIDERS: PCP Internal Medicine; Visit Provider Internal Medicine | DX: Z51.81 Encounter for therapeutic drug level monitoring (principal); M47.812 Spondylosis without myelopathy or radiculopathy, cervical region; Z79.891 Long term (current) use of opiate analgesic | CPT/HCPCS: 99212 ==

== ENCOUNTER 2023-12-24 06:16 | Outpatient (REF) | payer MEDICARE, SELFPAY ==
--- NOTE | ~2023-12-24 | FL_ITS ---
EXAMINATION: XR FLUOROSCOPY WITH IMAGES CLINICAL INFORMATION: Cervical radiculopathy. COMPARISON: None available. TECHNIQUE: Fluoroscopy Supervised By: Dr. Mckeon. Fluoroscopy Time: 0.5. Cumulative Dose: 6.28 mGy. DAP: 0.0741 Gycm2. Images: 5. FINDINGS: Intraoperative fluoroscopy and spot films were performed during a procedure in the OR. Consecutive needles are seen at C3, C4 and C5 bilaterally. Contrast media injected appears to be in the epidural space Please correlate with Dr. Mckeon's report for complete details. FL/FL guidance in treatment room IMPRESSION: Intraoperative fluoroscopy and spot films were obtained. Please see Dr. Mckeon's report for complete details.
== END 2023-12-24 06:17 | disposition home or self-care (01) ==
LOC: CF 06:16
PROVIDERS: Visit Provider Internal Medicine
DX: M47.812 Spondylosis without myelopathy or radiculopathy, cervical region (principal)
CPT/HCPCS: 64490; 64491; J2795; Q9967

== ENCOUNTER 2023-12-24 07:54 | Outpatient (AMB) | payer MEDICARE, SELFPAY ==
--- NOTE | 2023-12-24 08:50 | A.OFFVIS_ITS ---
Vital Signs 12/24/23 09:15 12/24/23 09:16 BP 115/76 137/77 Blood Pressure Location Lt brachial Position Sitting Respiration 14 Pulse 129 H 102 H Pulse Source Pulse Oximeter Pulse Oximeter Pulse Oximetry (%) 95 96 Oxygen Delivery Method Room Air Room Air Comment pre-op post-op Intake Visit Reasons: Sammy Dx C4-C5-C6 MBB /pill count Allergies No Known Allergies Allergy (Verified 11/13/23 08:43) HPI HPI Sammy Dx C4-C5-C6 MBB /pill count: Details: Patient presents for scheduled procedure. Denies any recent cough, cold, infection, fever or other significant changes in medical history since last office visit. Physical Exam Vital Signs: Last Vital Signs Pulse 102 H 12/24/23 09:16 Resp 14 12/24/23 09:15 BP 137/77 12/24/23 09:16 Pulse Ox 96 12/24/23 09:16 Oxygen Delivery Method Room Air 12/24/23 09:16 Office Procedures Cervical/Thoracic Facet Inj Details: Diagnostic Cervical Medial Branch Block, Bilateral C4, C5, C6 medial branches After obtaining written consent, pre-procedure blood pressure and pulse were recorded and are in the nursing record for review. The patient was placed in a lateral position. The respective cervical area was prepped with chloraprep and draped in sterile fashion. The skin over the target medial branch nerves was anesthetized with 0.5% lidocaine. A 25 gauge 1.5 inch needle was inserted into the target medial branch nerve under fluoroscopic guidance. No paresthesias were elicited with needle placement and aspiration was negative for blood and CSF. Next, 0.2cc of omnipaque 180 was injected to verify positioning. Next 0.5 ml 0.5% ropivicaine was injected (0.5 cc total per level). The identical procedure was performed at the remaining levels. The skin was cleansed and a sterile bandage was applied. Following the procedure the patient's vital signs were stable. The patient tolerated the procedure well and no complications were encountered. Following the procedure the patient's vital signs were stable. The patient was discharged home in good condition with post-procedural instructions. Time Out: Immediately prior to the procedure, the following was verbally confirm ed that there is a signed consent form and that the correct patient, planned procedure, site and side are consistent with documentation and that necessary equipment and/or blood products are available prior to the start of the case. Complications: none EBL: <5 cc 04172 - with Fluoroscopy 59491 - second level, with Fluoroscopy (bilateral) Procedure code (CPT) selection complete Assessment & Plan Assessment & Plan (1) Cervical spondylosis: Code(s): M47.812 - Spondylosis without myelopathy or radiculopathy, cervical region Category: Medical Plan Patient is status post bilateral diagnostic C4, C5, C6 medial branch blocks. Patient tolerated procedure well and was discharged home in stable condition with discharge instructions. All questions were answered. We will follow-up via telephone or in clinic to assess response to therapy. A follow-up appointment was made during today's visit. Orders: Orders FL guidance in treatment room Today M47.812 - Spondylosis without myelopathy or radiculopathy, cervical region Coding Level of Care Code Procedure Only Diagnoses Cervical spondylosis M47.812 CPT Codes Facet Injection Cervical/Thoracic - CPT: 48086 - with Fluoroscopy ([id number]) Facet Injection Cervical/Thoracic - CPT: 32567 - second level, with Fluoroscopy ([id number])
[2023-12-24 09:15] VITALS: BP 115/76; PULSE 129; RESP 14; O2SAT 95
[2023-12-24 09:16] VITALS: BP 137/77; PULSE 102; O2SAT 96
== END 2023-12-24 08:50 | disposition home or self-care (01) ==
LOC: HO.PMCPRC 07:54
PROVIDERS: PCP Internal Medicine; Visit Provider Internal Medicine
DX: M47.812 Spondylosis without myelopathy or radiculopathy, cervical region (principal)
CPT/HCPCS: 64490; 64491

== ENCOUNTER 2023-12-28 08:23 | Outpatient (AMB) | payer MEDICARE, MEDICAID, SELFPAY ==
--- NOTE | 2023-12-28 08:23 | A.OFFVIS_ITS ---
Intake Visit Reasons: s/p luz Dx C4-C5-C6 MBB Allergies No Known Allergies Allergy (Verified 11/13/23 08:43) HPI HPI s/p luz Dx C4-C5-C6 MBB: Details: 58-year-old male who presents today via tele visit for status post bilateral diagnostic C4-C5-C6 MBB. The patient reports no relief following the procedure. At this time, he reports his most significant pain issue is left lower back pain overlying the sacroiliac joint area. This is an old issue that he has had without much success with injections. He is not interested in SCS but is interested in considering peripheral nerve stimulator therapy. Past procedures:? 12/24/23: Diagnostic Cervical Medial Branch Block, Bilateral C4, C5, C6 medial branches: no relief. 09/10/2023: Caudal CARLIE with catheter: 50% relief. 07/16/23: Interlaminar epidural steroid injection, C7/T1, Left parasaggital: 60- 70% relief. 05/11/2023: Left Neck and shoulder trigger point injections: No relief. 03/13/23: Right subacromial shoulder injection, ultrasound guided: More than 50% relief 01/28/23: Transforaminal epidural steroid injection, Left L5: 80% relief for few hours. 08/20/2022: Piriformis Muscle Injection, Left: No relief 07/16/22: Left Diagnostic L4-L5-S1 MBB: No pain relief 04/09/22: Right Diagnostic SIJ Innervation: No relief. 03/05/22: Bilateral intra-articular corticosteroid SIJ Injection ? 90% relief for 2 days. 12/09/21: Left L2-L3 discectomy and L3-L4 decompression by Dr. Griffith 09/18/21: Left L3 TFESI, attempted Left L2- No relief. Review of Systems Const All systems reviewed & are unremarkable except as noted in HPI and below Telehealth Telehealth Telehealth Platform: [employer] Location of provider rendering services: practice address Location of patient: address on file Patient Identification confirmed using: Name, : Yes Telehealth method: video Patient verbally consented to treatment: Yes Patient verbally consented to billing insurance company: Yes Patient informed of any privacy concerns related to visit: Yes Minutes spent on Phone/Video with Pt.: 4 Results Reviewed Results Reviewed: No imaging is available for review. 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 I will place a referral for psychology clearance. Once we have received psychology clearance, we will plan for a trial of a peripheral nerve stimulator for the cluneal nerve with a Curonix device. The patient will receive a call from [facility] for the psychology assessment. Scribed for Dr. Mckeon by Hipolito Abdi, medical interpreter, on 12/28/2023. I, Dr. Mckeon, have personally reviewed and agree with the information entered by the scribe. Coding Level of Care Code Tele Est Pt Level 3 (68298) Diagnoses Cluneal neuropathy G58.8 Sacroiliac joint pain M53.3
== END 2023-12-28 08:23 | disposition home or self-care (01) ==
LOC: HO.PMC 08:23
PROVIDERS: PCP Internal Medicine; Visit Provider Internal Medicine
DX: G58.8 Other specified mononeuropathies (principal); M53.3 Sacrococcygeal disorders, not elsewhere classified
CPT/HCPCS: 99213

== ENCOUNTER → 2023-12-28 08:23 | Outpatient (BNVA) | payer MEDICARE, SELFPAY | PROVIDERS: PCP Internal Medicine; Visit Provider Internal Medicine ==

== ENCOUNTER → 2024-02-17 08:28 | Outpatient (BNVA) | payer MEDICARE, MEDICAID, SELFPAY | PROVIDERS: PCP Internal Medicine; Visit Provider Internal Medicine ==

== ENCOUNTER → 2024-03-16 08:52 | Outpatient (BNVA) | payer MEDICARE, MEDICAID, SELFPAY | PROVIDERS: PCP Internal Medicine; Visit Provider Internal Medicine ==

== ENCOUNTER 2024-04-13 08:56 | Outpatient (AMB) | payer MEDICARE, MEDICAID, SELFPAY ==
--- NOTE | 2024-04-13 08:59 | A.OFFVIS_ITS ---
Intake Visit Reasons: PILL COUNT Allergies No Known Allergies Allergy (Verified 04/13/24 08:59) Medication List - Last Reconciled 04/13/24 by Loida Louie LPN albuterol sulfate 90 mcg/actuation 2 puffs inhalation Q6H PRN alprazolam 0.5 mg PO TID PRN uvagtziwx-ygsirloe-qdjidlf ala 50-200-25 mg (Biktarvy) 1 tab PO DAILY celecoxib 100 mg PO BID PRN chlorhexidine gluconate 0.12% 15 mL PO BID doxycycline hyclate 100 mg PO DAILY ferrous sulfate 324 mg PO 3XW fluoxetine 20 mg PO DAILY fluticasone propionate 50 mcg/actuation 1 spray intranasal BID gabapentin 600 mg PO QID hydrocodone-acetaminophen 5-325 mg 1 tab PO Q4-6H PRN lidocaine 5% 1 patch topical DAILY 30 days meclizine 25 mg PO DAILY PRN mupirocin 2% topical DAILY naloxone 4 mg/actuation (Narcan) 4 mg intranasal Q2M PRN omeprazole 40 mg PO DAILY oxycodone-acetaminophen 5-325 mg 1 tab PO QID PRN simvastatin 20 mg PO BEDTIME terbinafine HCl 250 mg PO DAILY zolpidem 5 mg PO BEDTIME PRN HPI HPI PILL COUNT: Details: 58-year-old male who presents today to the office for pill count. 110 pills were expected, and 119 pills were presented. He reports hand pain with movement. He also has burning sensation in the chest, down his legs, and bottom of the feet. He reports pain in his left side of lower back when he stands from the sitting position. He also reports shooting pain in the left side of the back. He states he has exacerbating pain in the joint while sitting down and standing up. 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 He states he does ice compression on the hip, back, and shoulder region, which provides temporary relief. He reports returning shooting pain in his inguinal region, which was resolved after the last surgery about five years ago. He has on and off episodes of joint inflammation and pain. He reports neck pain and right shoulder pain. He is interested in getting a shoulder injection. He is on Biktarvy for HIV. He discussed his symptoms with infectious specialist. Past procedures:? 12/24/23: Diagnostic Cervical Medial Branch Block, Bilateral C4, C5, C6 medial branches: no relief. 09/10/2023: Caudal CARLIE with catheter: 50% relief. 07/16/23: Interlaminar epidural steroid injection, C7/T1, Left parasaggital: 60- 70% relief. 05/11/2023: Left Neck and shoulder trigger point injections: No relief. 03/13/23: Right subacromial shoulder injection, ultrasound guided: More than 50% relief 01/28/23: Transforaminal epidural steroid injection, Left L5: 80% relief for few hours. 08/20/2022: Piriformis Muscle Injection, Left: No relief 07/16/22: Left Diagnostic L4-L5-S1 MBB: No pain relief 04/09/22: Right Diagnostic SIJ Innervation: No relief. 03/05/22: Bilateral intra-articular corticosteroid SIJ Injection ? 90% relief for 2 days. 12/09/21: Left L2-L3 discectomy and L3-L4 decompression by Dr. Griffith 09/18/21: Left L3 TFESI, attempted Left L2- No relief. Review of Systems Const All systems reviewed & are unremarkable except as noted in HPI and below Physical Exam Vital Signs: General: Appears afebrile. Alert and oriented. Mood and affect appropriate. Follows and participates in conversation appropriately. Respiratory effort is unlabored. Able to transition from sit to stand unassisted. Ambulates with bilaterally normal heel strike and toe off. General: Appears afebrile. Alert and oriented. Mood and affect appropriate. Follows and participates in conversation appropriately. Respiratory effort is unlabored. Able to transition from sit to stand unassisted. Ambulates with bilaterally normal heel strike and toe off. Results Reviewed Results Reviewed: No imaging is available for review. Assessment & Plan Assessment & Plan (1) Bilateral hip pain: Code(s): M25.551 - Pain in right hip; M25.552 - Pain in left hip Category: Medical (2) Polyarthralgia: Code(s): M25.50 - Pain in unspecified joint Category: Medical Plan 110 pills were expected, and 119 pills were presented. Pill count and Mass Pat was consistent. A refill of hydrocodone-acetaminophen 5-325 mg 1 tab PO prn starting May 02, 2024. Patient will follow up in one month for pill count and refill. Ordered bilateral hip x-ray for further evaluation of right hip pain. I also ordered blood work including CRP, ESR, and rheumatoid factor test today. We will follow up in a month to review the results. If the blood work is positive then we will consider a referral to rheumatology. For his shoulder pain, I will schedule him for a right shoulder subacromial bursa steroid injection next week. Discussed the risks and benefits of the procedure with the patient in detail. All questions were answered. The patient is on board with the plan. Justification for interventional therapy: ? Patient with average pain > 6/10 ? Patient has exhausted conservative therapy. ? Patient unable to tolerate physical therapy due to pain . Patient has a good understanding of their pain condition and has appropriate mental and social support Scribed for Dr. Mckeon by Flip, medical receptionist, on 04/13/2024. I, Dr. Mckeon, have personally reviewed and agree with the information entered by the scribe. Orders: Orders XR hip BI w PEL1V 04/13/24 M25.551 - Pain in right hip, M25.552 - Pain in left hip CRP High Sensitivity 04/13/24 M25.50 - Pain in unspecified joint Erythrocyte Sedimentation Rate 04/13/24 M25.50 - Pain in unspecified joint Rheumatoid Factor 04/13/24 M25.50 - Pain in unspecified joint Medications: Refilled hydrocodone-acetaminophen 5-325 mg Partial Fill upon patient request. 1 tab PO Q4-6H PRN 180 tabs 0RF pain Coding Level of Care Code Est Pt Level 4 (25059) Diagnoses Bilateral hip pain M25.551; M25.552 Polyarthralgia M25.50
== END 2024-04-13 09:48 | disposition home or self-care (01) ==
LOC: HO.PMC 08:56
PROVIDERS: PCP Internal Medicine; Visit Provider Internal Medicine
DX: M25.551 Pain in right hip (principal); M25.552 Pain in left hip; M25.50 Pain in unspecified joint
CPT/HCPCS: 99214

== ENCOUNTER 2024-04-13 10:02 | Outpatient (REF) | payer MEDICARE, MEDICAID, SELFPAY ==
[2024-04-13 12:14] LABS: Rheumatoid Factor < 13.0 IU/mL (<15.0)
[2024-04-13 16:07] LABS: Erythrocyte Sedimentation Rate 3 MM/HR (0-15)
[2024-04-15 11:08] LABS: CRP High Sensitivity 0.8 mg/L
== END 2024-04-13 10:03 | disposition home or self-care (01) ==
LOC: HO.XRAY 10:02
PROVIDERS: PCP Internal Medicine; Visit Provider Internal Medicine
DX: M25.511 Pain in right shoulder (principal); M25.512 Pain in left shoulder; M25.50 Pain in unspecified joint
CPT/HCPCS: 36415; 73521; 85652; 86141; 86431; 99212

== ENCOUNTER 2024-04-21 06:11 | Outpatient (REF) | payer MEDICARE, MEDICAID, SELFPAY | END 2024-04-21 06:12 | disposition home or self-care (01) | LOC: CF 06:11 | PROVIDERS: Visit Provider Internal Medicine | DX: M25.511 Pain in right shoulder (principal) | CPT/HCPCS: 20606; J2795; J3300; J3301 ==

== ENCOUNTER 2024-04-21 09:12 | Outpatient (AMB) | payer MEDICARE, MEDICAID, SELFPAY ==
[2024-04-21 09:17] VITALS: BP 139/71; PULSE 68; O2SAT 99
--- NOTE | 2024-04-21 09:17 | MHC.OFFVIS ---
Vital Signs 04/21/24 09:17 04/21/24 09:54 BP 139/71 134/73 Blood Pressure Location Lt brachial Lt brachial Position Sitting Sitting Pulse 68 66 Pulse Source Pulse Oximeter Pulse Oximeter Pulse Oximetry (%) 99 98 Oxygen Delivery Method Room Air Room Air Intake Visit Reasons: right shoulder injection Allergies No Known Allergies Allergy (Verified 04/13/24 08:59) HPI HPI right shoulder injection: Details: Patient presents for scheduled procedure. Denies any recent cough, cold, infection, fever or other significant changes in medical history since last office visit. Physical Exam Vital Signs: Last Vital Signs Pulse 66 04/21/24 09:54 BP 134/73 04/21/24 09:54 Pulse Ox 98 04/21/24 09:54 Oxygen Delivery Method Room Air 04/21/24 09:54 Office Procedures AMB Joint Injection/Aspiration Joint Injection/Aspiration Primary Site: right shoulder Prep: site was prepped using sterile technique Injected: 40 mg of, Kenalog, with 3 mL of (Ropivacaine 0.25%) and in the subcromial space Approach Used: posterolateral Procedure: The patient tolerated the procedure well Coding Details: Ultrasound image of the injection was stored to the patient's record. - Acromioclavicular with ultrasound guidance Procedure code (CPT) selection complete Office Meds Kenalog 40 mg/mL suspension for injection Performing Provider: Edmond Mckeon MD [place] [facility] Administered by: Edmond Mckeon MD on 04/21/24 11:05 Dose Route Admin Location Dispensed Lot Number Expiration Date [facility] [employer] 40 mg intrabursal 1 mL Assessment & Plan Assessment & Plan (1) Right shoulder pain: Code(s): M25.511 - Pain in right shoulder Category: Medical Plan Patient is status post right subacromial bursa injection under ultrasound guidance. Patient tolerated procedure well and was discharged home in stable condition with discharge instructions. All questions were answered. Follow-up as needed. Orders: Orders FL guidance in treatment room Today Sharda Finch APRN, VP RHEUMATOLOGY M25.511 - Pain in right shoulder AMB Joint Injection/Aspiration Today Edmond Mckeon MD M25.511 - Pain in right shoulder Medications: New Kenalog (triamcinolone acetonide) 40 mg intrabursal ONCE 1 mL 0RF NS Edmond Mckeon MD M25.511 - Pain in right shoulder Coding Level of Care Code Procedure Only Diagnoses Right shoulder pain M25.511 CPT Codes Coding - Joint 6: 98538 - Acromioclavicular with ultrasound guidance ([id number])
[2024-04-21 09:54] VITALS: BP 134/73; PULSE 66; O2SAT 98
== END 2024-04-21 09:54 | disposition home or self-care (01) ==
LOC: HO.PMCPRC 09:12
PROVIDERS: PCP Internal Medicine; Visit Provider Internal Medicine
DX: M25.511 Pain in right shoulder (principal)
CPT/HCPCS: 20606

== ENCOUNTER 2024-05-11 08:47 | Outpatient (AMB) | payer MEDICARE, MEDICAID, SELFPAY ==
[2024-05-11 09:06] VITALS: BP 148/77; PULSE 61; O2SAT 100; BMI 28.0
--- NOTE | 2024-05-11 09:06 | MHC.OFFVIS ---
Vital Signs 05/11/24 09:06 Height 5 ft 10 in Weight 195 lb BMI 28.0 BP 148/77 H Blood Pressure Location Rt brachial Position Sitting Pulse 61 Pulse Source Pulse Oximeter Pulse Oximetry (%) 100 Oxygen Delivery Method Room Air Intake Visit Reasons: PILL COUNT & post op Allergies No Known Allergies Allergy (Verified 05/11/24 09:06) Medication List - Last Reconciled 05/11/24 by Marlena Dobson albuterol sulfate 90 mcg/actuation 2 puffs inhalation Q6H PRN alprazolam 0.5 mg PO TID PRN kcntymehf-vquqvvlm-myfzdjt ala 50-200-25 mg (Biktarvy) 1 tab PO DAILY celecoxib 100 mg PO BID PRN chlorhexidine gluconate 0.12% 15 mL PO BID doxycycline hyclate 100 mg PO DAILY ferrous sulfate 324 mg PO 3XW fluoxetine 20 mg PO DAILY fluticasone propionate 50 mcg/actuation 1 spray intranasal BID gabapentin 600 mg PO QID hydrocodone-acetaminophen 5-325 mg 1 tab PO Q4-6H PRN lidocaine 5% 1 patch topical DAILY 30 days meclizine 25 mg PO DAILY PRN mupirocin 2% topical DAILY naloxone 4 mg/actuation (Narcan) 4 mg intranasal Q2M PRN omeprazole 40 mg PO DAILY oxycodone-acetaminophen 5-325 mg 1 tab PO QID PRN simvastatin 20 mg PO BEDTIME terbinafine HCl 250 mg PO DAILY zolpidem 5 mg PO BEDTIME PRN HPI HPI PILL COUNT & post op: Details: 59-year-old male who presents to the office today for pill count and s/p right subacromial bursa injection. 138 pills were expected, and 140 pills were presented. The patient reports 50% relief following the procedure. He reports his shoulder pain has improved. He reports the hip pain is worse on some days and he has shooting pain in the groin area at times. He had a hip x-ray done which showed mild arthritis in the bilateral joints. Past procedures? 04/21/24: Right subacromial bursa injection under ultrasound guidance: 50% relief. 12/24/23: Diagnostic Cervical Medial Branch Block, Bilateral C4, C5, C6 medial branches: no relief. 09/10/2023: Caudal CARLIE with catheter: 50% relief. 07/16/23: Interlaminar epidural steroid injection, C7/T1, Left parasaggital: 60-70% relief. 05/11/2023: Left Neck and shoulder trigger point injections: No relief. 03/13/23: Right subacromial shoulder injection, ultrasound guided: More than 50% relief 01/28/23: Transforaminal epidural steroid injection, Left L5: 80% relief for few hours. 08/20/2022: Piriformis Muscle Injection, Left: No relief 07/16/22: Left Diagnostic L4-L5-S1 MBB: No pain relief 04/09/22: Right Diagnostic SIJ Innervation: No relief. 03/05/22: Bilateral intra-articular corticosteroid SIJ Injection ? 90% relief for 2 days. 12/09/21: Left L2-L3 discectomy and L3-L4 decompression by Dr. Griffith 09/18/21: Left L3 TFESI, attempted Left L2- No relief. Review of Systems Const All systems reviewed & are unremarkable except as noted in HPI and below Physical Exam Vital Signs: Last Vital Signs Pulse 61 05/11/24 09:06 BP 148/77 H 05/11/24 09:06 Pulse Ox 100 05/11/24 09:06 Oxygen Delivery Method Room Air 05/11/24 09:06 BMI result Body Mass Index 28.0 General: Appears afebrile. Alert and oriented. Mood and affect appropriate. Follows and participates in conversation appropriately. Respiratory effort is unlabored. Able to transition from sit to stand unassisted. Ambulates with bilaterally normal heel strike and toe off. Results Reviewed Results Reviewed: X-ray of the hip was notable for mild arthritis in the bilateral joints. Final report is still pending. 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 Pill count and Mass Pat was consistent. A refill of hydrocodone-acetaminophen 5-325 mg 1 tab PO PRN starting June 02, 2024. Patient will follow up in 07/09 for pill count and refill. Inflammatory markers that were ordered at his last visit were all within normal. Discussed hip injections as a possible treatment option if his groin pain becomes bothersome. Scribed for Dr. Mckeon by Flip, medical instrument technician, on 05/11/2024. I, Dr. Mckeon, have personally reviewed and agree with the information entered by the scribe. Medications: Refilled hydrocodone-acetaminophen 5-325 mg Partial Fill upon patient request. 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
== END 2024-05-11 09:24 | disposition home or self-care (01) ==
PROVIDERS: PCP Internal Medicine; Visit Provider Internal Medicine
DX: M25.511 Pain in right shoulder (principal); Z79.891 Long term (current) use of opiate analgesic; M53.3 Sacrococcygeal disorders, not elsewhere classified
CPT/HCPCS: 99214

== ENCOUNTER → 2024-05-11 08:47 | Outpatient (BNVA) | payer MEDICARE, MEDICAID, SELFPAY | PROVIDERS: PCP Internal Medicine; Visit Provider Internal Medicine | DX: Z51.81 Encounter for therapeutic drug level monitoring (principal); M25.511 Pain in right shoulder; M53.3 Sacrococcygeal disorders, not elsewhere classified; Z79.891 Long term (current) use of opiate analgesic | CPT/HCPCS: 99212 ==

== ENCOUNTER 2024-06-22 08:51 | Outpatient (AMB) | payer MEDICARE, MEDICAID, SELFPAY ==
--- NOTE | 2024-06-22 08:59 | A.OFFVIS_ITS ---
Vital Signs 06/22/24 09:00 Height 5 ft 10 in Weight 199 lb BMI 28.6 BP 135/63 Blood Pressure Location Lt brachial Position Sitting Respiration 16 Pulse 61 Pulse Source Pulse Oximeter Pulse Oximetry (%) 99 Oxygen Delivery Method Room Air Intake Visit Reasons: PILL COUNT/ random UDS Intake Note: Pt states he last took vicodin 06/22/24 @ 6am Allergies No Known Allergies Allergy (Verified 06/22/24 09:02) Medication List - Last Reconciled 06/22/24 by Loida Louie LPN albuterol sulfate 90 mcg/actuation 2 puffs inhalation Q6H PRN alprazolam 0.5 mg PO TID PRN gookmzhwf-wfxjgmxj-mcgwbgx ala 50-200-25 mg (Biktarvy) 1 tab PO DAILY celecoxib 100 mg PO BID PRN chlorhexidine gluconate 0.12% 15 mL PO BID doxycycline hyclate 100 mg PO DAILY ferrous sulfate 324 mg PO 3XW fluoxetine 20 mg PO DAILY fluticasone propionate 50 mcg/actuation 1 spray intranasal BID gabapentin 600 mg PO QID hydrocodone-acetaminophen 5-325 mg 1 tab PO Q4-6H PRN lidocaine 5% 1 patch topical DAILY 30 days meclizine 25 mg PO DAILY PRN mupirocin 2% topical DAILY naloxone 4 mg/actuation (Narcan) 4 mg intranasal Q2M PRN omeprazole 40 mg PO DAILY oxycodone-acetaminophen 5-325 mg 1 tab PO QID PRN simvastatin 20 mg PO BEDTIME terbinafine HCl 250 mg PO DAILY zolpidem 5 mg PO BEDTIME PRN HPI HPI PILL COUNT/ random UDS: Details: Roni is here for a pill count. Seventy-two pills were expected and 74 were presented he is due for a refill for Vicodin 5-325 mg. He reports increasing pain in his left lower back region radiating towards his anterior left thigh. This is similar to what he has previously had in his lower back. We have previously tried facet blocks which have not been very helpful. We have also tried a transforaminal injection last year which only provided temporary relief for 1 day. Has not recently had an SI joint injection in the left side. Pain distribution is in the distribution of the left sacroiliac joint as well as lumbar facets. His range of motion is severely limited and he has trouble moving and has an antalgic gait. On exam today: Appears afebrile. Alert and oriented. Mood and affect appropriate. Follows and participates in conversation appropriately. Respiratory effort is unlabored. Able to transition from sit to stand unassisted. Ambulates with bilaterally normal heel strike and toe off. Able to stand and walk on toes and heels. SI joint provocation is positive. 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 We will plan for a left therapeutic sacroiliac joint injection for what appears to be sacroiliac mediated pain. Justification for interventional therapy: * Patient with average pain > 6/10 * Patient has exhausted conservative therapy including physical therapy and oral medications. * Lumbar facet injections and transforaminal epidural steroid injections have previously not provided relief Medications: Refilled hydrocodone-acetaminophen 5-325 mg Partial Fill upon patient request. 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
[2024-06-22 09:00] VITALS: BP 135/63; PULSE 61; RESP 16; O2SAT 99; BMI 28.6
== END 2024-06-22 09:29 | disposition home or self-care (01) ==
PROVIDERS: PCP Internal Medicine; Visit Provider Internal Medicine
DX: M53.3 Sacrococcygeal disorders, not elsewhere classified (principal); Z79.891 Long term (current) use of opiate analgesic
CPT/HCPCS: 99214

== ENCOUNTER → 2024-06-22 08:51 | Outpatient (BNVA) | payer MEDICARE, MEDICAID, SELFPAY | PROVIDERS: PCP Internal Medicine; Visit Provider Internal Medicine | DX: Z51.81 Encounter for therapeutic drug level monitoring (principal); M53.3 Sacrococcygeal disorders, not elsewhere classified; Z79.891 Long term (current) use of opiate analgesic | CPT/HCPCS: 99212 ==

== ENCOUNTER 2024-07-20 09:21 | Outpatient (AMB) | payer MEDICARE, MEDICAID, SELFPAY ==
--- NOTE | 2024-07-20 09:43 | A.OFFVIS_ITS ---
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: No Allergies No Known Allergies Allergy (Verified 07/28/24 10:04) Medication List - Last Reconciled 07/20/24 by Loida Louie LPN albuterol sulfate 90 mcg/actuation 2 puffs inhalation Q6H PRN alprazolam 0.5 mg PO TID PRN wgztenfne-pqntclku-kxazyja ala 50-200-25 mg (Biktarvy) 1 tab PO DAILY celecoxib 100 mg PO BID PRN chlorhexidine gluconate 0.12% 15 mL PO BID doxycycline hyclate 100 mg PO DAILY ferrous sulfate 324 mg PO 3XW fluoxetine 20 mg PO DAILY fluticasone propionate 50 mcg/actuation 1 spray intranasal BID gabapentin 600 mg PO QID hydrocodone-acetaminophen 5-325 mg 1 tab PO Q4-6H PRN lidocaine 5% 1 patch topical DAILY 30 days meclizine 25 mg PO DAILY PRN mupirocin 2% topical DAILY naloxone 4 mg/actuation (Narcan) 4 mg intranasal Q2M PRN omeprazole 40 mg PO DAILY oxycodone-acetaminophen 5-325 mg 1 tab PO QID PRN simvastatin 20 mg PO BEDTIME terbinafine HCl 250 mg PO DAILY zolpidem 5 mg PO BEDTIME PRN HPI HPI PILL COUNT: Details: History of Present Illness The patient is a 59-year-old male presenting with medication management concerns associated with chronic conditions. Notably, he has chronic cervical stenosis diagnosed previously, contributing to ongoing pain, notably in the neck, hips, and back areas. 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 Pain is managed with medications like Celebrex and ibuprofen, contingent on symptom severity. While general pain levels are described as managed, there are reports of stabbing pain experienced infrequently. Overall, no recent surgical interventions have been noted, and no apparent changes in the condition have been reported since the patient last met with clinical care providers. 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 - Quality: Stabbing pain and episodes of numbness in both hands. 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 - Radiation: None specifically mentioned. - Exacerbating factors: Movement and specific activities such as bending or manipulating objects. - Relieving factors: Ibuprofen and Celebrex alleviating severe pain; response to regular medications not preferred for daily use. 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 Physical Exam - Musculoskeletal- Good range of motion noted, presence of audible cervical crepitus ( crunching ) with movement; no specific deficiencies highlighted. - Neurological- Persistent numbness of fingertips noted bilaterally. Results - MRI from 2021 referenced but no specifics detailed in conversation. Pain Management - Affect: Patient experiences 'good days and bad days' emotionally related to pain fluctuations. - Analgesia: Current regimen includes Celebrex and ibuprofen (medications adjusted based on severity); no current changes discussed; no reported adverse side effects. - Adverse Effects: None specified from current medication usage. 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 - Aberrant Drug Related Behaviors: No reported aberrant use behaviors. Physical Exam Vital Signs: Last Vital Signs Pulse 69 07/20/24 09:44 Resp 16 07/20/24 09:44 BP 132/68 07/20/24 09:44 Pulse Ox 99 07/20/24 09:44 Oxygen Delivery Method Room Air 07/20/24 09:44 BMI result Body Mass Index 28.4 Assessment & Plan Assessment & Plan (1) Sacroiliac joint dysfunction: Code(s): M53.3 - Sacrococcygeal disorders, not elsewhere classified Category: Medical (2) senior living (current) use of opiate analgesic: Code(s): Z79.891 - senior living (current) use of opiate analgesic Category: Medical (3) Failed back syndrome: Code(s): M96.1 - Postlaminectomy syndrome, not elsewhere classified Category: Medical Plan Plan - Chronic Cervical Stenosis: Awaiting MRI review; currently not pursuing further surgical intervention; monitoring ongoing symptoms and hand function advised. - Chronic Pain Syndrome: Celebrex and ibuprofen refilled; regular monitoring at follow-up; scheduled injections next week to address sacroiliac joint pain. - Medication Management: Pill count consistent; prescription sent; plan includes revising future pill counts during procedure visits for convenience. Patient was informed and verbally consented to the use of an ambient scribe for clinic note documentation during this visit. Discussion Notes During our visit, we discussed the continuation of the current pain management plan, noting the patient's improved response with intermittent Celebrex and ibuprofen, as needed, for severe pain episodes. We assessed the cervical issues with consideration of previous cervical stenosis diagnoses. Given the ongoing numbness and hand weakness, we agreed on monitoring symptoms with a potential repeat of MRI if symptoms do worsen. Provided clarity on procedural logistics to optimize future visits and noted the upcoming injection as part of the therapeutic approach addressed. Patient Instructions - Continue prescribed use of Celebrex and ibuprofen as necessary for pain management. 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 - Attend scheduled injection appointment next week as planned. - Notify if there are any significant changes in symptoms or medication side effects. - Next follow-up visit is planned for one month, with a pill count aligned with procedural visits when applicable. Medications: Refilled hydrocodone-acetaminophen 5-325 mg Partial Fill upon patient request. 1 tab PO Q4-6H PRN 180 tabs 0RF pain hydrocodone-acetaminophen 5-325 mg Partial Fill upon patient request. 1 tab PO Q4-6H PRN 180 tabs 0RF pain Discontinued oxycodone-acetaminophen 5-325 mg Partial Fill upon patient request. 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
[2024-07-20 09:44] VITALS: BP 132/68; PULSE 69; RESP 16; O2SAT 99; BMI 28.4
--- OUTSIDE RECORDS SUMMARY | 2024-07-20 09:46 | XMS_ITS | Clinical Summary ---
Author Organization LL 175 [facility] Address [address] [place] [address] Phone Care Team Providers Care Power Operator Name Role Phone Gregg Todd MD Primary Care Provider [phone] Allergies No known active allergies Medications Medication Sig Dispensed Refills Start Date End Date Status terbinafine (LamISIL) 250 mg tablet TAKE 1 TABLET BY MOUTH EVERY DAY 30 tablet 2 04/20/2024 Active bictegravir-emtric itabine-tenofovir alafenamide (Biktarvy) 50-200-25 mg per tablet Take 1 Tab by mouth daily. 06/29/2019 Active doxycycline (VIBRAMYCIN) 100 mg capsule Take 100 mg by mouth daily. 10/23/2021 Active FLUoxetine (PROzac) 20 mg capsule Take 1 capsule (20 mg total) by mouth 1 (one) time each day. 02/23/2024 Active gabapentin (NEURONTIN) 600 mg tablet TAKE 2 TABLETS BY MOUTH EVERY MORNING, 2 TABLETS AT LUNCH AND 1 TABLET AT BEDTIME 08/14/2020 Active HYDROcodone-acetam inophen (NORCO) 7.5-325 mg per tablet 1 TAB BY MOUTH EVERY 6 HOURS NEEDED FOR SEVERE PAIN 10/24/2021 Active lidocaine (LIDODERM) 5 % patch 02/05/2022 Active mirtazapine (REMERON) 15 mg tablet TAKE 1 TABLET BY MOUTH EVERY DAY AT NIGHT 12/03/2023 Active mirtazapine (REMERON) 30 mg tablet Take 1 Tablet by mouth daily. 08/20/2022 Active mupirocin (BACTROBAN) 2 % ointment APPLY SPARINGLY TO AFFECTED AREA(S) 3 TIMES A DAY 05/23/2011 Active simvastatin (ZOCOR) 20 mg tablet TAKE 1 TABLET BY MOUTH EVERYDAY AT BEDTIME 02/03/2024 Active tamsulosin (FLOMAX) 0.4 mg 24 hr capsule Take 1 Capsule by mouth daily for 360 days. Take 30 mins after same meal every day. 09/29/2023 Active tiZANidine (ZANAFLEX) 4 mg tablet TAKE 2 TABLETS BY MOUTH TWICE A DAY NEEDED FOR MUSCLE SPASMS 02/03/2024 Active zolpidem (AMBIEN) 5 mg tablet TAKE 1 TABLET BY MOUTH EVERY DAY AT BEDTIME 04/11/2021 Active omeprazole (PriLOSEC) [address] capsule TAKE 1 CAPSULE BY MOUTH EVERY DAY 90 capsule 1 05/30/2024 Active albuterol HFA (PROAIR HFA ; PROVENTIL HFA ; VENTOLIN HFA) 90 mcg/actuation inhalerIndications :Chronic bronchitis, unspecified chronic bronchitis type (CMS/HCC) Inhale 2 puffs by mouth every 6 (six) hours if needed for wheezing or shortness of breath. 1 each 05/30/2024 5 Active meclizine (ANTIVERT) 25 mg tablet TAKE 1 TABLET BY MOUTH 3 TIMES DAILY NEEDED FOR VERTIGO 90 tablet 1 06/30/2024 Active fluticasone furoate (Arnuity Ellipta) 100 mcg/actuation blister with device inhaler Inhale 1 puff by mouth 1 (one) time each day. 1 each 06/30/2024 6 Active beclomethasone dipropionate (Qvar RediHaler) 80 mcg/actuation HFA aerosol breath activated inhaler Inhale 2 puffs by mouth 2 (two) times a day. 3 each 3 07/01/2024 6 Active fluticasone propionate (FLONASE) 50 mcg/actuation nasal spray USE 1 SPRAY INTO EACH NOSTRIL TWICE A DAY 48 mL 1 07/18/2024 Active fluticasone propionate (FLONASE) 50 mcg/actuation nasal spray SPRAY 1 SPRAY INTO EACH NOSTRIL TWICE A DAY 01/21/2024 5 Discontinued meclizine (ANTIVERT) 25 mg tablet TAKE 1 TABLET BY MOUTH 3 TIMES DAILY NEEDED FOR VERTIGO 02/23/2024 5 Discontinued Active Problems Problem Noted Date Diagnosed Date Shortness of breath on exertion 08/13/2022 Overview (04/25/2024): Last Assessment & Plan: As I noted this patient has had shortness of breath now for the past year. I did begin given a slip to check a chest x-ray his blood work. Also did review his nuclear stress test findings with him.He did exercise for 7 minutes and 22 seconds of a Eliud protocol stress test heart rate 141 which is 87% of his max per chart review. He had ECG changes suggestive for ischemia. Perfusion scan demonstrated a large in size severe intensity fixed perfusion defect in the basal to apical inferior wall, basal to mid inferior septal wall, basal to mid inferolateral wall. There is also small in size mild intensity reversible defect in the basal to mid anterior wall. CT correction was applied. Even after CT correction there was a small in size mild intensity fixed defect in the apical inferior wall. There is a persistence of a small in size mild intensity reversible defect in the basal to mid anterior wall. EF was 68%. I did review the results with the patient and his girlfriend. If the above stated the lab and test was unremarkable and the other question is the shortness of breath could be ischemic mediated. This time I do not see enough information to proceed with a cardiac cath. I do think it be reasonable to go ahead with a coronary CTA. I discussed the indication of procedure and the procedure itself. I discussed his limitations. Discussed some, but all possible risk including radiation exposure as well as dye exposure. I did discuss some,but not all possible risk of dye including allergy as well as affecting the kidneys. He states he understands. Sacroiliitis 02/07/2022 Overview (04/25/2024): Last Assessment & Plan: Mr. Willson is being followed at [facility] by Dr. Carreno where he had a good response to the lidocaine portion of an SI joint injection but then a return of symptoms. The second injection did not provide any relief. He has had trigger point injections across his lower back which did help for a few weeks but now is back to baseline. He states it takes him about 2 hours in the morning to stand up straight and loosen up from the low back stiffness. He experiences bilateral groin pain if walking multiple flights of stairs. The most bothersome problem right now is pain in the deep left buttock that radiates down his leg and is provoked by flexion, extension and rotation of his foot/ankle. He takes gabapentin 600 mg 3 times daily and Vicodin 1 or 2 tab every 6 hours. On exam, he is tender in the deep mid-left buttock. Seated SLR is positive on the left at 90 degrees, strength 5/5, sensation to light touch intact. He rises from the chair slowly and stiffly which follows through to his gait. We discussed other options as a do not think any further lumbar spine surgery would be of benefit. I think there is an element of piriformis syndrome but he did not wish to return to physical therapy as previous sessions would make him worse. I suggested he explore injection options with Dr. Carreno. They may also consider left L4-S1 medial branch blocks. Chronic shoulder pain 07/25/2019 Overview (04/25/2024): bilaterally Hiatal hernia 07/25/2019 GERD (gastroesophageal reflux disease) 9 HSV-1 (herpes simplex virus 1) infection 019 Insomnia 06/01/2019 Kidney stone 06/01/2019 Folliculitis 03/24/2019 Internal hemorrhoids 02/02/2019 Spinal stenosis, lumbar 02/02/2019 Overview (04/25/2024): 06/2018 S/p L2-3 partial laminectomy Last Assessment & Plan: Mr. Constance Aguirre is here for his second postop visit since a left L2-3 and bilateral L3-4 decompression on 12/09/2021. He has had dramatic relief of the severe acute symptoms he was having and is now able to walk. He has had baseline spondylosis and multiple prior operations with Dr. Dahl. He is now experiencing some burning in the arches of his feet and has a significant flareup of pain at the SI joints into his buttocks with any attempted exercise. He has had treatment for sacroiliitis with bilateral injections by Dr. Kowalski 4 to 5 years ago and he currently feels like that is what is needed. He feels the pain upon standing and walking and is unable to lay on his sides at night. On exam, he is nontender over the midline lumbar spine, he is acutely tender over the bilateral SI joints left worse than right. Seated SLR is positive on the left at 90 degrees for pain in the left buttock, strength 5/5, gait antalgic. He has made a good recovery from surgery I think it is fair to treat him for bilateral sacroiliitis at this point. See notes under that section. Degenerative lumbar disc 01/04/2019 Hypertension 01/04/2019 Overview (04/25/2024): Last Assessment & Plan: Today the blood pressure is elevated but when I reviewed his last office note in June his blood pressure at that time appear to be good. 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 Tremor 08/12/2017 Hyperlipidemia 11/28/2016 Hepatic hemangioma 04/09/2016 Ulcerative esophagitis 10/02/2015 Vitamin D deficiency 03/06/2015 Chronic sinusitis 07/01/2013 Gout 10/08/2011 Encounters Date Type Department Care Team Description 07/14/2024 Telephone Internal Medicine - [facility] [address] [phone] Lia Bae MA Referral 06/30/2024 9:00 AM EST Office Visit Pulmonolgy - [facility] 175 [facility] [address] [place] [phone] Felicia Sparrow MD Chronic asthmatic bronchitis (CMS/HCC) (Primary Dx); Elevated diaphragm 06/23/2024 9:48 AM EST - 06/23/2024 11:59 PM EST Hospital Encounter [facility] CT Scan [address] [place] [phone] of the chest; Lung nodules Discharge Disposition: Home or Self Care 06/09/2024 8:30 AM EST Consult Orthopedic Surgery - [facility] [address] [facility] [address] [place] [phone] Norberto Arcos MD Impingement of right shoulder (Primary Dx); Shoulder pain 05/30/2024 8:45 AM EST Office Visit Pulmonolgy - [facility] 175 [facility] [address] [place] [phone] Felicia Sparrow MD Chronic bronchitis, unspecified chronic bronchitis type (CMS/HCC) (Primary Dx); Chronic sinusitis, unspecified location; Abnormal CT of the chest; Lung nodules 05/27/2024 11:49 AM EST - 05/27/2024 11:59 PM EST Hospital Encounter [facility] [address] [place] [phone] Dyspnea, unspecified type Discharge Disposition: Home or Self Care from Last 3 Months Immunizations Name Administration Dates Next Due DTaP (Infanrix) 6wks to less than 7yo 07/29/2012 Hepatitis A Adult (Havrix; V aqta) 19yo and older 08/10/2015 Hepatitis B (Qsvryoz-U-Mrtsj , Recombivax HB-Adult) 19yo and older 02/20/2017,09/12/2016,08/15/2016 Influenza Quadravalent, MDCK , 0.5ml, preservative free (Flucelvax) 6mo and older 04/22/2021 Influenza trivalent, with pr eservative (Fluzone; Afluria) 6mo and older 03/20/2020 Meningococcal MCV4P 10/14/2018 Moderna SARS-CoV-2 COVID-19, mRNA, LNP-S, preservative free 10/18/2020,09/20/2020 Tdap Tetanus diptheria acell ular pertussis (Boostrix; Adacel) 7yo and older 10/30/2017 Zoster recombinant (Shingrix ) 19yo and older 06/16/2019,01/19/2019 Surgical History Surgery Date Site/Laterality Comments LUMBAR LAMINECTOMY 07/07/2018 PROCEDURE: HISTORICAL LUMB LAMINECTOMY; COMMENT: L2-3 partial BACK SURGERY PROCEDURE:BACK SURGERY COLONOSCOPY PROCEDURE:COLONOSCOPY Medical History Medical History Date Comments Internal hemorrhoids 02/02/2019 DX:Internal hemorrhoids Degenerative lumbar disc 01/04/2019 DX:Dege nerative lumbar disc HIV (human immunodeficiency virus infection) ([facility]) 01/04/2019 DX:HIV (human immunodeficien cy virus infection) ([facility]) Hypertension 01/04/2019 DX:Hypertension Spinal stenosis, lumbar 02/02/2019 DX:Spina l stenosis, lumbar; COMMENT: 06/2018 S/p L2-3 partial laminectomy Anxiety 09/10/2017 DX:Anxiety Back pain, chronic 09/10/2017 DX:Back pain, chronic Benign prostate hyperplasia 12/25/2017 DX:B enign prostate hyperplasia Chronic sinusitis 07/01/2013 DX:Chronic sin usitis Depression 11/17/2017 DX:Depression ED (erectile dysfunction) 11/17/2017 DX:ED (erectile dysfunction) Elevated lipase 12/25/2017 DX:Elevated lipa se Gout 10/08/2011 DX:Gout Hepatic hemangioma 04/09/2016 DX:Hepatic he mangioma Hyperlipidemia 11/28/2016 DX:Hyperlipidemi a Memory loss 11/17/2017 DX:Memory loss Tremor 08/12/2017 DX:Tremor Ulcerative esophagitis 10/02/2015 DX:Ulcera tive esophagitis Vitamin D deficiency 03/06/2015 DX:Vitamin D deficiency Folliculitis 03/24/2019 DX:Folliculitis HSV-1 (herpes simplex virus 1) infection 06/01/2019 DX:HSV-1 (herpes simplex vir us 1) infection History of MRSA infection 06/01/2019 DX:His tory of MRSA infection Insomnia 06/01/2019 DX:Insomnia Kidney stone 06/01/2019 DX:Kidney stone GERD (gastroesophageal reflu x disease) 06/01/2019 DX:GERD (gastroesophageal re flux disease) Chronic shoulder pain 07/25/2019 DX:Chronic shoulder pain; COMMENT: bilaterally History of bariatric surgery 07/25/2019 DX: History of bariatric surgery; COMMENT: Gastric sleeve. Hiatal hernia 07/25/2019 DX:Hiatal hernia Hypertension DX:Hypertension HIV (human immunodeficiency virus infection) ([facility]) DX:HIV (human immunodeficien cy virus infection) ([facility]) Anemia DX:Anemia Family History Medical History Relation Name Comments Bone cancer Brother Heart attack Father Heart failure Mother Relation Name Status Comments Brother Father Mother Social History Tobacco Use Types Packs/Day Years Used Date Smoking Tobacco: Never Smokeless Tobacco: Never Tobacco Cessation:Counseling Given: Not Answered Alcohol Use Standard Drinks/Week Comments Not Currently 0 (1 standard drink = 0.6 oz pur e alcohol) Sex and Gender Information Value Date Recorded Sex Assigned at Not on file Gender Identity Not on file Sexual Orientation Not on file Job Start Date Occupation Industry Not on file Not on file Not on file Obstetrics History Last Filed Vital Signs Vital Sign Reading Time Taken Comments Blood Pressure 143/82 05/30/2024 8:45 AM EST Pulse 56 06/30/2024 8:59 AM EST Temperature 36.2 ??C (97.1 ??F) 06/30/2024 8:59 AM ES T Respiratory Rate 20 06/30/2024 8:59 AM EST Oxygen Saturation 100% 06/30/2024 8:59 AM EST Inhaled Oxygen Concentration - - Weight 89.4 kg (197 lb 3.2 oz) 06/30/2024 8:59 A M EST Height 177.8 cm (5' 10 ) 06/30/2024 8:59 AM EST Body Mass Index 28.3 06/30/2024 8:59 AM EST Plan of Treatment Upcoming Encounters Date Type Department Care Team (Late st Contact Info) Description 07/25/2024 8:30 AM EST Office Visit Orthopedic Surgery [facility] [address] [facility] [address] [place] [phone] Norberto Arcos MD 175 [facility] [address] [place] [address] 08/23/2024 9:00 AM EDT Office Visit Gastroenterology [facility] 175 [facility] 175 [facility] [address] [place] [phone] Alok Mccormack MD 175 [facility] [address] [place] [address] 09/28/2024 8:15 AM EDT Office Visit Internal Medicine [facility] 175 [facility] [address] [place] [phone] Gregg Todd MD 175 [facility] [address] [place] [address] 12/29/2024 8:45 AM EDT Office Visit Pulmonolgy - [facility] 175 [facility] [address] [place] [phone] Felicia Sparrow MD [address] [address] Health Maintenance Due Date Last Done Comments Pneumococcal Vaccine: Pediatrics (0 to 5 Years) and At-Risk Patients (6 to 64 Years) (1 of 2 - PCV) 02/28/1970 MMR Vaccines (1 of 2 - Risk 2-dose series) 02/28/1982 Hepatitis A Vaccines (2 of 2 - Risk 2-dose series) 02/08/2016 08/10/2015 Meningococcal ACWY Vaccine ( 2 - Risk 2-dose series) 12/09/2018 10/14/2018 COVID-19 Vaccine (3 - Modern a risk series) 11/15/2020 10/18/2020, 09/20/2020 Depression Screening 05/24/2022 Hepatitis C Screening 05/24/2022 Medicare Annual Wellness Visit 05/24/2022 Social Influencers of Health Screening 05/24/2022 Influenza Vaccine (#1) 2024 , 03/20/2020 RSV Immunization Patients 60 + Years Old (1 - Risk 60-74 years 1-dose series) 2024 Colorectal Cancer Screening: Colonoscopy 09/22/2024 09/22/2014 Hypertension/CHF/CAD Annual BMP Blood Test 04/27/2025 04/27/2024, 09/29/2023 DTaP,Tdap,and Td Vaccines (3 - Td or Tdap) 10/31/2027 10/30/2017, 07/29/2012 Cholesterol Screening (Lipid Panel) 04/27/2029 04/27/2024, 09/29/2023 Hepatitis B Vaccines Completed 02/20/2017, 09/12/2016, 08/15/2016 Zoster Vaccines Completed 06/16/2019, 01/19/2019 HIB Vaccines Aged Out No longer eligi ble based on patient's age to complete this topic HPV Vaccines Aged Out No longer eligi ble based on patient's age to complete this topic IPV Vaccines Aged Out No longer eligi ble based on patient's age to complete this topic RSV Immunization Patients Under 20 months Aged Out No longer eligible b ased on patient's age to complete this topic Varicella Vaccines Aged Out No longer eligible based on patient's age to complete this topic Procedures Procedure Name Priority Date/Time Associated Diagnosis Comments CT CHEST WO CONTRAST Routine 06/23/2024 10:[address] of the chest Lung nodules XR SHOULDER 2+ VIEWS RIGHT Routine 06/09/2024 8:55 AM EST Pain VA ARTHROCENTESIS/ASPIRAT ION/INJECTION MAJOR JOINT/BURSA W/O U/S GUIDANCE Routine 06/09/2024 8:30 AM EST Shoulder pain XR CHEST 2 VIEWS Routine 05/27/2024 11:5 6 AM EST Dyspnea, unspecified type CBC WITH AUTO DIFFERENTIAL Routine 04/27/2024 9:41 AM EST Pure hypercholesterolemi a Primary hypertension Anxiety disorder of adolescence Esophageal reflux COMPREHENSIVE METABOLIC PANEL Routine 04/27/2024 9:41 AM EST Pure hypercholesterolemi a Primary hypertension Anxiety disorder of adolescence Esophageal reflux CBC AND DIFFERENTIAL Routine 04/27/2024 9:41 AM EST Pure hypercholesterolemi a Primary hypertension Anxiety disorder of adolescence Esophageal reflux THYROID STIMULATING HORMONE WITH REFLEX TO FREE T4 AND FREE T3 Routine 04/27/2024 9:41 AM EST Pure hypercholesterolemi a Primary hypertension Anxiety disorder of adolescence Esophageal reflux LIPID PANEL WITH REFLEX TO DIRECT LDL Routine 04/27/2024 9:41 AM EST Pure hypercholesterolemi a Primary hypertension Anxiety disorder of adolescence Esophageal reflux HM COLONOSCOPY Routine 09/22/2014 from Last 3 Months or Most Recently Relevant to Health Maintenance Results * CT Chest wo Contrast (06/23/2024 10:06 AM EST) Anatomical Region Laterality Modality Body Computed Tomogra phy 06/30/2024 9:30 AM EST Impressions 06/30/2024 9:37 AM EST Stable 3 mm right lower lobe pulmonary nodule. No new, enlarging or suspicious pulmonary nodules. No infiltrates or effusions. No thoracic lymphadenopathy. -------- FINAL REPORT -------- Dictated By: Mildred Hyatt Dictated Date: 06/30/2024 09:30 ET Assigned Physician: Mildred Hyatt Reviewed and Electronically Signed By: Mildred Hyatt Signed Date: 06/30/2024 09:37 ET Workstation ID: [id number] Transcribed By: Self Edit Transcribed Date: 06/30/2024 09:30 ET Narrative 06/30/2024 9:37 AM EST INDICATION: Pulmonary nodule TECHNIQUE: CT scan of the chest obtained without contrast. Scanner: TwoTen revolution frontier 128 slice VCT Dose reduction technique: ASIR (Adaptive statistical iterative reconstruction) and/or AEC (automated exposure control) Dose: total exam DLP 388 mGY per cm COMPARISON: Chest CT from April 27, 2015. FINDINGS: Lung bermudez are well aerated without infiltrates or effusions. 3 mm noncalcified nodule in the right lung base on series 3 image 145 is unchanged and stable dating back to April 27, 2015. No new, enlarging or suspicious pulmonary nodules. No thoracic lymphadenopathy. Trachea and esophagus are within normal limits. Heart normal in size and shape without pericardial effusion. Unopacified mediastinal vascular structures are grossly normal in course and caliber for the patient's age. Bony structures of the thorax are within normal limits. Visualized portion upper abdomen are unremarkable. Procedure Note Mildred Hyatt MD - 06/30/2024 INDICATION: Pulmonary nodule TECHNIQUE: CT scan of the chest obtained without contrast. Scanner: TwoTen revolution frontier 128 slice VCT Dose reduction technique: ASIR (Adaptive statistical iterativereconstruction) and/or AEC (automated exposure control) Dose: total exam DLP 388 mGY per cm COMPARISON: Chest CT from April 27, 2015. FINDINGS: Lung bermudez are well aerated without infiltrates or effusions. 3 mm noncalcified nodule in the right lung base on series 3 image 145 isunchanged and stable dating back to April 27, 2015. No new, enlarging or suspicious pulmonary nodules. No thoracic lymphadenopathy. Trachea and esophagus are within normallimits. Heart normal in size and shape without pericardial effusion. Unopacified mediastinal vascular structures are grossly normal in courseand caliber for the patient's age. Bony structures of the thorax are within normal limits. Visualized portion upper abdomen are unremarkable. IMPRESSION: Stable 3 mm right lower lobe pulmonary nodule. No new, enlarging or suspicious pulmonary nodules. No infiltrates or effusions. No thoracic lymphadenopathy. -------- FINAL REPORT -------- Dictated By: Mildred Hyatt Dictated Date: 06/30/2024 09:30 ET Assigned Physician: Mildred Hyatt Reviewed and Electronically Signed By: Mildred Hyatt Signed Date: 06/30/2024 09:37 ET Workstation ID: [id number] Transcribed By: Self Edit Transcribed Date: 06/30/2024 09:30 ET Felicia Sparrow MD IMG CT PROCEDURES * XR Shoulder 2+ Views Right (06/09/2024 8:55 AM EST) Anatomical Region Laterality Modality Upper Extremities, Shoulder Right Comp uted Radiography Narrative 06/09/2024 1:02 PM EST 3 view x-rays of the right shoulder show no acute fractures or dislocations, no osseous lesions or abnormalites, soft tissue shadows appear normal, no glenohumeral joint space narrowing Impression: Normal x-ray of the right shoulder without osseous abnormalities Norberto Arcos MD IMG XR PROCEDURES * VA ARTHROCENTESIS/ASPIRATION/INJECTION MAJOR JOINT/BURSA W/O U/S GUIDANCE (06/09/2024 8:30 AM EST) Narrative Norberto Arcos MD - 06/09/2024 8:30 AM EST Norberto Arcos MD ? 06/09/2024 ??1:05 PM L Inj/Asp: R subacromial bursa Indications: pain Details: 25 G needle, posterior approach Medications: 40 mg triamcinolone acetonide 40 mg/mL Site was prepped in standard fashion using alcohol swab, sterile technique was used to perform the injection, the patient tolerated the procedure well and a band-aid dressing was applied Informed Consent: ??Site: ??Right subacromial ??Laterality: ??Right ??Relevant images/test results available and reviewed: yes ?Health status cleared: ??Yes ??Procedure/treatment, purpose, treatment alternatives, risks/potential complications and benefits explained: yes ?Risk/complications/benefits details: ??Risk/complications/benefits details: ??Risks and benefits of corticosteroid injection were discussed, including risk of pain, bleeding, infection, tissue attenuation, tendon rupture, changes in skin color, and injury to surrounding structures such as arteries, veins and nerves. We also discussed the patient may develop worsening pain for a few days before having improvement in their symptoms. ??Patient questions answered: yes ?Patient agrees, verbalizes understanding, and wants to proceed: yes ?Consent given by: ??Patient ??Informed consent discussion completed by Physician/NYDIA with patient: ?? Verbal ??Pre-procedure timeout performed: yes ?? Norberto Arcos MD IN CLINIC/BEDSIDE OR DERABLES * XR Chest 2 Views (05/27/2024 11:56 AM EST) Anatomical Region Laterality Modality Body Radiographic Eleanor ging 05/27/2024 6:36 PM EST Impressions 05/27/2024 6:40 PM EST No evidence of an acute chest process. POS - [id number] -------- FINAL REPORT -------- Dictated By: María Valderrama Dictated Date: 05/27/2024 18:36 ET Assigned Physician: María Valderrama Reviewed and Electronically Signed By: María Valderrama Signed Date: 05/27/2024 18:40 ET Workstation ID: [id number] Transcribed By: Self Edit Transcribed Date: 05/27/2024 18:36 ET Narrative 05/27/2024 6:40 PM EST EXAM: Chest x-ray HISTORY: ??Dyspnea. ?? COMPARISON: 05/15/2023 and 06/29/2019, Chest CT 09/15/2022 FINDINGS: PA and lateral views of the chest were performed. ?? No focal infiltrate, pleural effusion, or evidence of pulmonary edema. ??No pneumothorax. ??Chronic eventration of the right hemidiaphragm. ??Heart is not enlarged. ??Mediastinal contours are stable and within normal limits. No compression deformities. Procedure Note María Valderrama MD - 05/27/2024 EXAM: Chest x-ray HISTORY: Dyspnea. COMPARISON: 05/15/2023 and 06/29/2019, Chest CT 09/15/2022 FINDINGS: PA and lateral views of the chest were performed. No focal infiltrate, pleural effusion, or evidence of pulmonary edema. Nopneumothorax. Chronic eventration of the right hemidiaphragm. Heart isnot enlarged. Mediastinal contours are stable and within normal limits.No compression deformities. IMPRESSION: No evidence of an acute chest process. POS - [id number] -------- FINAL REPORT -------- Dictated By: María Valderrama Dictated Date: 05/27/2024 18:36 ET Assigned Physician: María Valderrama Reviewed and Electronically Signed By: María Valderrama Signed Date: 05/27/2024 18:40 ET Workstation ID: [id number] Transcribed By: Self Edit Transcribed Date: 05/27/2024 18:36 ET Felicia Sparrow MD IMG XR PROCEDURES * Thyroid stimulating hormone with reflex to free t4 and free t3 (04/27/2024 9:41 AM EST) [facility] TSH 1.94 0.40 - 4.00 mcIU/mL LAB CHEMISTRY METHOD 04/27/2024 11:56 AM EST [facility] Blood Venous blood specimen / Unknown Venipuncture / Unknown 04/27/2024 9:41 AM EST 04/27/2024 9:41 AM EST Gregg Todd MD LAB BLOOD ORDERABLES [facility] [address] [place] [address], * (ABNORMAL) Lipid panel with reflex to direct LDL (04/27/2024 9:41 AM EST) [facility] Cholesterol 206(H) 0 - 200 mg/dL LAB CHEMISTRY METHOD 04/27/2024 11:[address] [facility] Triglycerides 107 0 - 150 mg/dL LAB CHEMISTRY METHOD 04/27/2024 11:[address] [facility] HDL 64 >=40 mg/dL LAB CHEMISTRY METHOD 04/27/2024 11:[address] [facility] LDL Calculated 121(H) 0 - 100 mg/dL LAB CHEMISTRY METHOD 04/27/2024 11:[address] [facility] VLDL Cholesterol Yovany 21.4 mg/dL LAB CHEMISTRY METHOD 04/27/2024 11:[address] [facility] Non HDL Chol. (LDL+VLDL) 142 <145 mg/dL LAB CHEMISTRY METHOD 04/27/2024 11:[address] [facility] Chol/HDL Ratio 3.2 0.0 - 4.4 LAB CHEMISTRY METHOD 04/27/2024 11:[address] [facility] Blood Venous blood specimen / Unknown Venipuncture / Unknown 04/27/2024 9:41 AM EST 04/27/2024 9:41 AM EST Gregg Todd MD LAB BLOOD ORDERABLES [facility] [address] [place] [address], * (ABNORMAL) CBC auto differential (04/27/2024 9:41 AM EST) WBC 6.9 4.8 - 10.8 K/mcL LAB HEMETOLOGY METHOD 04/27/2024 10:[address] [facility] RBC 4.90 4.50 - 5.50 M/mcL LAB HEMETOLOGY METHOD 04/27/2024 10:[address] [facility] Hemoglobin 14.6 13.5 - 17.5 g/dL LAB HEMETOLOGY METHOD 04/27/2024 10:[address] [facility] Hematocrit 44.4 42.0 - 54.0 % LAB HEMETOLOGY METHOD 04/27/2024 10:[address] [facility] MCV 90.4 79.0 - 98.0 FL LAB HEMETOLOGY METHOD 04/27/2024 10:[address] [facility] MCH 29.7 27.0 - 32.0 pcg LAB HEMETOLOGY METHOD 04/27/2024 10:[address] [facility] MCHC 32.9 32.0 - 37.0 g/dL LAB HEMETOLOGY METHOD 04/27/2024 10:[address] [facility] RDW 13.5 11.0 - 15.0 % LAB HEMETOLOGY METHOD 04/27/2024 10:[address] [facility] Platelets 269 130 - 400 K/mcL LAB HEMETOLOGY METHOD 04/27/2024 10:[address] [facility] MPV 11.1(H) 7.0 - 11.0 FL LAB HEMETOLOGY METHOD 04/27/2024 10:[address] [facility] NRBC 0.0 <1.0 % LAB HEMETOLOGY METHOD 04/27/2024 10:[address] [facility] NRBC Absolute 0.00 <0.10 K/mcL LAB HEMETOLOGY METHOD 04/27/2024 10:[address] [facility] Neutrophils Relative 63.1 % LAB HEMETOLOGY METHOD 04/27/2024 10:[address] [facility] Lymphocytes Relative 24.7 % LAB HEMETOLOGY METHOD 04/27/2024 10:[address] [facility] Monocytes Relative 9.3 % LAB HEMETOLOGY METHOD 04/27/2024 10:[address] [facility] Eosinophils Relative 2.2 % LAB HEMETOLOGY METHOD 04/27/2024 10:[address] [facility] Basophils Relative 0.4 % LAB HEMETOLOGY METHOD 04/27/2024 10:48 AM EST [facility] Immature Granulocytes Relative 0.3 % LAB HEMETOLOGY METHOD 04/27/2024 10:[address] [facility] Neutrophils Absolute 4.36 1.50 - 7.00 K/mcL LAB HEMETOLOGY METHOD 04/27/2024 10:[address] [facility] Lymphocytes Absolute 1.71 1.00 - 5.00 K/mcL LAB HEMETOLOGY METHOD 04/27/2024 10:[address] [facility] Monocytes Absolute 0.64 0.20 - 1.00 K/mcL LAB HEMETOLOGY METHOD 04/27/2024 10:[address] [facility] Eosinophils Absolute 0.15 0.00 - 0.50 K/mcL LAB HEMETOLOGY METHOD 04/27/2024 10:[address] [facility] Basophils Absolute 0.03 0.00 - 0.20 K/mcL LAB HEMETOLOGY METHOD 04/27/2024 10:[address] [facility] Immature Granulocytes Absolute 0.02 0.00 - 0.03 K/mcL LAB HEMETOLOGY METHOD 04/27/2024 10:[address] [facility] Blood Venous blood specimen / Unknown Venipuncture / Unknown 04/27/2024 9:41 AM EST 04/27/2024 9:41 AM EST Gregg Todd MD LAB BLOOD ORDERABLES [facility] [address] [place] [address], * (ABNORMAL) Comprehensive metabolic panel (04/27/2024 9:41 AM EST) Sodium 138 133 - 145 mmol/L LAB CHEMISTRY METHOD 04/27/2024 11:[address] [facility] Potassium 4.8 3.5 - 5.5 mmol/L LAB CHEMISTRY METHOD 04/27/2024 11:[address] [facility] Chloride 106 96 - 110 mmol/L LAB CHEMISTRY METHOD 04/27/2024 11:[address] [facility] CO2 27 21 - 32 mmol/L LAB CHEMISTRY METHOD 04/27/2024 11:[address] [facility] Anion Gap 5 3 - 11 LAB CHEMISTRY METHOD 04/27/2024 11:[address] [facility] Glucose 99 70 - 100 mg/dL LAB CHEMISTRY METHOD 04/27/2024 11:[address] [facility] BUN 22 5 - 25 mg/dL LAB CHEMISTRY METHOD 04/27/2024 11:[address] [facility] Creatinine 0.99 0.70 - 1.30 mg/dL LAB CHEMISTRY METHOD 04/27/2024 11:[address] [facility] eGFR 87 >=60 mL/min/1. 73m2 LAB CHEMISTRY METHOD 04/27/2024 11:[address] [facility] Comment:Calculation based on the??Chronic Kidney Disease Epidemiology Collaboration (CKD-EPI) equation refit??without adjustment for race. BUN/Creatinine Ratio 22.2 LAB CHEMISTRY METHOD 04/27/2024 11:[address] [facility] Calcium 9.4 8.5 - 10.5 mg/dL LAB CHEMISTRY METHOD 04/27/2024 11:[address] [facility] AST (SGOT) 43(H) 10 - 42 unit/L LAB CHEMISTRY METHOD 04/27/2024 11:[address] [facility] ALT (SGPT) 81(H) 10 - 60 unit/L LAB CHEMISTRY METHOD 04/27/2024 11:[address] [facility] Alkaline Phosphatase 90 42 - 121 unit/L LAB CHEMISTRY METHOD 04/27/2024 11:[address] [facility] Total Protein 6.9 6.0 - 8.0 g/dL LAB CHEMISTRY METHOD 04/27/2024 11:51 AM EST [facility] Albumin 4.2 3.2 - 5.0 g/dL LAB CHEMISTRY METHOD 04/27/2024 11:51 AM EST [facility] Total Bilirubin 0.7 0.0 - 1.4 mg/dL LAB CHEMISTRY METHOD 04/27/2024 11:51 AM EST [facility] Blood Venous blood specimen / Unknown Venipuncture / Unknown 04/27/2024 9:41 AM EST 04/27/2024 9:41 AM EST Gregg Todd MD LAB BLOOD ORDERABLES [facility] [address] [place] [address], * Colonoscopy (09/22/2014) Colonoscopy Abstracted Anatomical Region Laterality Modality Other Historical Provider MD MAYITO Randall from Last 3 Months or Most Recently Relevant to Health Maintenance Care Teams Power Operator Relationship Specialty Start Date End Date Gregg Todd MD [address] [address] PCP - General Internal Medicine 04/17/21
--- OUTSIDE RECORDS SUMMARY | 2024-07-20 09:47 | XMS_ITS | Encounter Summary ---
Author Organization [facility] Address [address] [place] [address] Care Team Providers Care Manager Recruiting Name Role Phone Gregg Todd MD Primary Care Provider [phone] Reason for Referral * Imaging (Routine) - Closed Specialty Diagnoses / Procedures Referred By Addison ontiveros Referred To Contact Radiology Diagnoses Abnormal CT of the chest Lung nodules Procedures CT Chest wo Contrast Felicia Sparrow MD 175 [facility] [address] [place] [address] [facility] [address] [place] [address] Referral ID Status Reason Start Date Expiration Date Visits Re quested Visits Authorized [id number] Closed 05/30/2024 05/30/2025 1 1 Reason for Visit * Imaging (Routine) - Closed Specialty Diagnoses / Procedures Referred By Addison ontiveros Referred To Contact Radiology Diagnoses Abnormal CT of the chest Lung nodules Procedures CT Chest wo Contrast Felicia Sparrow MD 175 [facility] [address] [place] [address] [facility] [address] [place] [address] Referral ID Status Reason Start Date Expiration Date Visits Re quested Visits Authorized [id number] Closed 05/30/2024 05/30/2025 1 1 Encounter Details Date Type Department Care Team (Latest Contact Info) Description 06/23/2024 9:48 AM EST - 06/23/2024 11:59 PM EST Hospital Encounter [facility] [address] [place] [address] of the chest; Lung nodules Discharge Disposition: Home or Self Care Social History Tobacco Use Types Packs/Day Years Used Date Smoking Tobacco: Never Smokeless Tobacco: Never Alcohol Use Standard Drinks/Week Comments Not Currently 0 (1 standard drink = 0.6 oz pur e alcohol) Sex and Gender Information Value Date Recorded Sex Assigned at Not on file Gender Identity Not on file Sexual Orientation Not on file Job Start Date Occupation Industry Not on file Not on file Not on file documented as of this encounter Medications at Time of Discharge Medication Sig Dispensed Refills Start Date End Date albuterol HFA (PROAIR HFA ; PROVENTIL HFA ; VENTOLIN HFA) 90 mcg/actuation inhalerIndications:Chr onic bronchitis, unspecified chronic bronchitis type (CMS/HCC) Inhale 2 puffs by mouth every 6 (six) hours if needed for wheezing or shortness of breath. 1 each 05/30/2024 05/30/2025 bictegravir-emtricitab ine-tenofovir alafenamide (Biktarvy) 50-200-25 mg per tablet Take 1 Tab by mouth daily. 06/29/2019 doxycycline (VIBRAMYCIN) 100 mg capsule Take 100 mg by mouth daily. 10/23/2021 FLUoxetine (PROzac) 20 mg capsule Take 1 capsule (20 mg total) by mouth 1 (one) time each day. 02/23/2024 gabapentin (NEURONTIN) 600 mg tablet TAKE 2 TABLETS BY MOUTH EVERY MORNING, 2 TABLETS AT LUNCH AND 1 TABLET AT BEDTIME 08/14/2020 HYDROcodone-acetaminop hen (NORCO) 7.5-325 mg per tablet 1 TAB BY MOUTH EVERY 6 HOURS NEEDED FOR SEVERE PAIN 10/24/2021 lidocaine (LIDODERM) 5 % patch 02/05/2022 mirtazapine (REMERON) 15 mg tablet TAKE 1 TABLET BY MOUTH EVERY DAY AT NIGHT 12/03/2023 mirtazapine (REMERON) 30 mg tablet Take 1 Tablet by mouth daily. 08/20/2022 mupirocin (BACTROBAN) 2 % ointment APPLY SPARINGLY TO AFFECTED AREA(S) 3 TIMES A DAY 05/23/2011 omeprazole (PriLOSEC) [address] capsule TAKE 1 CAPSULE BY MOUTH EVERY DAY 90 capsule 1 05/30/2024 simvastatin (ZOCOR) 20 mg tablet TAKE 1 TABLET BY MOUTH EVERYDAY AT BEDTIME 02/03/2024 tamsulosin (FLOMAX) 0.4 mg 24 hr capsule Take 1 Capsule by mouth daily for 360 days. Take 30 mins after same meal every day. 09/29/2023 09/23/2024 terbinafine (LamISIL) 250 mg tablet TAKE 1 TABLET BY MOUTH EVERY DAY 30 tablet 2 04/20/2024 tiZANidine (ZANAFLEX) 4 mg tablet TAKE 2 TABLETS BY MOUTH TWICE A DAY NEEDED FOR MUSCLE SPASMS 02/03/2024 zolpidem (AMBIEN) 5 mg tablet TAKE 1 TABLET BY MOUTH EVERY DAY AT BEDTIME 04/11/2021 fluticasone propionate (FLONASE) 50 mcg/actuation nasal spray SPRAY 1 SPRAY INTO EACH NOSTRIL TWICE A DAY 01/21/2024 07/18/2024 meclizine (ANTIVERT) 25 mg tablet TAKE 1 TABLET BY MOUTH 3 TIMES DAILY NEEDED FOR VERTIGO 02/23/2024 06/30/2024 documented as of this encounter Discharge Disposition Disposition Code Departure Means Destination Home or Self Care documented in this encounter Plan of Treatment Upcoming Encounters Date Type Department Care Team (Late st Contact Info) Description 07/25/2024 8:30 AM EST Office Visit Orthopedic Surgery - [place] [address] 175 [facility] [address] [place] [phone] Norberto Arcos MD 175 [facility] [address] [place] [address] 08/23/2024 9:00 AM EDT Office Visit Gastroenterology - [place] 175 [facility] 175 [facility] [address] [place] [phone] Alok Mccormack MD 175 [facility] [address] [place] [address] 09/28/2024 8:15 AM EDT Office Visit Internal Medicine - [place] 175 [facility] [address] [place] [phone] Gregg Todd MD 175 [facility] [address] [place] [address] 12/29/2024 8:45 AM EDT Office Visit Pulmonolgy - [address] [place] [address] Felicia Sparrow MD 175 [facility] [address] [place] [address] documented as of this encounter Procedures Procedure Name Priority Date/Time Associated Diagnosis Comments CT CHEST WO CONTRAST Routine 06/23/2024 10:[address] of the chest Lung nodules documented in this encounter Results * CT Chest wo Contrast (06/23/2024 [...] Signed Date: 06/30/2024 09:37 ET Workstation ID: [id number] Transcribed By: Self Edit Transcribed Date: 06/30/2024 09:30 ET Narrative 06/30/2024 9:37 AM EST INDICATION: Pulmonary nodule TECHNIQUE: CT scan of the chest obtained without contrast. Scanner: Smish 128 slice VCT Dose reduction technique: ASIR [...] of the chest obtained without contrast. Scanner: LimeTrayer 128 slice VCT Dose reduction technique: ASIR [...] Signed Date: 06/30/2024 09:37 ET Workstation ID: [id number] Transcribed By: Self Edit Transcribed Date: 06/30/2024 09:30 ET Felicia Sparrow MD IMG CT PROCEDURES documented in this encounter Visit Diagnoses Diagnosis Abnormal CT of the chest Nonspecific (abnormal) findings on radiological and other examination of other intrathoracic organs Lung nodules Other diseases of lung, not elsewhere classified documented in this encounter Care Teams Manager Recruiting Relationship Specialty Start Date End Date Gregg Todd MD [address] [place] [address] PCP - General Internal Medicine 04/17/21 documented as of this encounter
--- OUTSIDE RECORDS SUMMARY | 2024-07-20 09:47 | XMS_ITS | Encounter Summary ---
Author Organization [facility] Address [address] [place] [address] Care Team Providers Care Transport Conductor Name Role Phone Gregg Todd MD Primary Care Provider [phone] Reason for Visit * Reason Onset Date Comments Referral 07/14/2024 Encounter Details Date Type Department Care Team (Late st Contact Info) Description 07/14/2024 Telephone Internal Medicine - [address] [place] [phone] Lia Bae MA Referral Social History Tobacco Use Types Packs/Day Years [...] on file documented as of this encounter Progress Notes * Gregg Todd MD - 07/17/2024 6:29 AM EST Referral was placed earlier * Lia Bae MA - 07/14/2024 2:18 PM EST Received a fax from [facility] for a request for referral (P): [phone] (F): [phone] documented in this encounter Plan of Treatment Upcoming Encounters Date Type Department Care Team (Late st Contact Info) Description 07/25/2024 8:30 AM EST Office Visit Orthopedic Surgery - [place] [address] 175 [facility] 250 [place] [phone] Norberto Arcos MD 175 [facility] [address] [place] [address] 08/23/2024 9:00 AM EDT Office Visit Gastroenterology - [place] [address] [place] [phone] Alok Mccormack MD 175 [facility] 200 [place] [address] 09/28/2024 8:15 AM EDT Office Visit Internal Medicine - [place] 175 [facility] [address] [place] [phone] Gregg Todd MD 175 [facility] 200 [place] [address] 12/29/2024 8:45 AM EDT Office Visit Pulmonolgy - [place] 175 [facility] [address] [place] [phone] Felicia Sparrow MD [address] [address] documented as of this encounter Visit Diagnoses Not on filedocumented in this encounter Care Teams Transport Conductor Relationship Specialty Start Date End Date Gregg Todd MD [address] [address] PCP - General Internal Medicine 04/17/21 documented as of this encounter
--- OUTSIDE RECORDS SUMMARY | 2024-07-20 09:47 | XMS_ITS | Encounter Summary ---
Author Organization [facility] Address [address] [place] [phone] Care Team Providers Care Hyster Driver Name Role Phone Gregg Todd MD Primary Care Provider [phone] Reason for Visit * Reason Comments Asthma Results Ct scan * Consultation (Routine) - Authorized Specialty Diagnoses / Procedures Referred By Contac t Referred To Contact Pulmonology Diagnoses N/A Procedures N/A Gregg Todd MD [address] [address] Felicia Sparrow MD [address] [address] Referral ID Status Reason Start Date Expiration Date V isits Requested Visits Authorized [id number] Authorized 05/23/2024 05/23/2025 12 12 Encounter Details Date Type Department Care Team ([facility] st Contact Info) Description 06/30/2024 9:00 AM EST Office Visit Pulmonolgy - [place] [address] [phone] Felicia Sparrow MD [address] [address] Chronic asthmatic bronchitis (CMS/HCC) (Primary Dx); Elevated diaphragm Social History Tobacco Use Types Packs/Day Years [...] on file documented as of this encounter Last Filed Vital Signs Vital Sign Reading Time Taken Comments Blood Pressure - - Pulse 56 06/30/2024 8:59 AM EST Temperature [...] Mass Index 28.3 06/30/2024 8:59 AM EST documented in this encounter Ordered Prescriptions Prescription Sig Dispensed Refills Start Date End Da te fluticasone furoate (Arnuity Ellipta) 100 mcg/actuation blister with device inhaler Inhale 1 puff by mouth 1 (one) time each day. 1 each 06/30/2024 06/30/2025 documented in this encounter Progress Notes * Felicia Sparrow MD - 06/30/2024 9:00 AM EST ADULT PULMONARY Followup CHIEF COMPLAINT or REASON FOR CONSULTATION: Asthma and Results (Ct scan ) Last seen 05/30/2024. HISTORY OF PRESENT ILLNESS: Roni Willson is a 59 y.o. old, male h/o chronic bronchitis//asthma, lung nodule (RLL 3 mm), elevated right hemidiaphragm CAD, HTN, HLD, GERD, hepatitis, CKD, BPH, nephrolithiasis, HIV (dx 2019), MRSA skin infection, and anxiety with depression. In 09/10/22, patient chest CT showed GGO & 4 mm lung nodules. On 09/15/2022, chest CT showed a very small FERNANDEZ subpleural ground glass opacity. Patient underwent a cardiac CT at [facility] on 10/18/22 which showed no GGO. A follow up dedicate Chest CT was declined by health insurance. He did undergo CT abd & pelvis just showed elevated right hemidiaphragm, and RLL nodule stable. Insurance again declined dedicated chest CT. His Chest Xray performed & 05/27/24 showed no obvious abnormalities. His echocardiogram 10/07/2022 show EF of 55 to 60%, normal diastolic function, no TR, and no valvular abnormality. COVID vaccinations: Moderna None Smoker: Occupation: Disable. 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 Mild to moderate occupation chemical fume exposure. No tuberculosis or asbestos exposure. Pets: None. FH: No known family history of lung cancer or lung disease. ACT: 17. Since last seen: -Chest CT on 06/30/2024 showed RLL 3 mm nodule, no new suspicious lung nodule, mass, effusion or adenopathy. -Not been hospitalized: REVIEW OF SYSTEMS: Review of Systems Constitutional: Negative for chills, decreased appetite, diaphoresis, fever, malaise/fatigue and night sweats. HENT: Negative for congestion. Cardiovascular: Positive for dyspnea on exertion. Negative for chest pain, irregular heartbeat and leg swelling. Respiratory: Positive for shortness of breath. Negative for cough, hemoptysis, snoring, sputum production and wheezing. Endocrine: Negative for cold intolerance and heat intolerance. Skin: Negative for rash. Gastrointestinal: Negative for abdominal pain, constipation, diarrhea and dysphagia. Genitourinary: Negative for dysuria. ALLERGIES: No Known Allergies ACTIVE MEDICATIONS: No outpatient medications have been marked as taking for the 06/30/24 encounter (Office Visit) with Felicia Sparrow MD. PROVIDER ATTESTS THAT THE MEDICATION LIST WAS OBTAINED, REVIEWED AND UPDATED. PAST MEDICAL HISTORY: Patient Active Problem List Diagnosis Date Noted Shortness of breath on exertion 08/13/2022 Sacroiliitis (CMS/HCC) 02/07/2022 Chronic shoulder pain 07/25/2019 Hiatal hernia 07/25/2019 GERD (gastroesophageal reflux disease) 06/01/2019 HSV-1 (herpes simplex virus 1) infection 06/01/2019 Insomnia 06/01/2019 Kidney stone 06/01/2019 Folliculitis 03/24/2019 Internal hemorrhoids 02/02/2019 Spinal stenosis, lumbar 02/02/2019 Degenerative lumbar disc 01/04/2019 Hypertension 01/04/2019 Benign prostate hyperplasia 12/25/2017 Elevated lipase 12/25/2017 Depression 11/17/2017 ED (erectile dysfunction) 11/17/2017 Memory loss 11/17/2017 Anxiety 09/10/2017 Back pain, chronic 09/10/2017 Tremor 08/12/2017 Hyperlipidemia 11/28/2016 Hepatic hemangioma 04/09/2016 Ulcerative esophagitis 10/02/2015 Vitamin D deficiency 03/06/2015 Chronic sinusitis 07/01/2013 Gout 10/08/2011 Past Surgical History: Procedure Laterality Date BACK SURGERY PROCEDURE:BACK SURGERY COLONOSCOPY PROCEDURE:COLONOSCOPY LUMBAR LAMINECTOMY 07/07/2018 PROCEDURE: HISTORICAL LUMB LAMINECTOMY; COMMENT: L2-3 partial Past Surgical History: Procedure Laterality Date BACK SURGERY PROCEDURE:BACK SURGERY COLONOSCOPY PROCEDURE:COLONOSCOPY LUMBAR LAMINECTOMY 07/07/2018 PROCEDURE: HISTORICAL LUMB LAMINECTOMY; COMMENT: L2-3 partial FAMILY HISTORY: Family History Problem Relation Name Age of Onset Heart failure Mother Heart attack Father Bone cancer Brother SOCIAL HISTORY Social History Socioeconomic History Marital status: Spouse name: Not on file Number of children: Not on file Years of education: Not on file Highest education level: Not on file Occupational History Not on file Tobacco Use Smoking status: Never Smokeless tobacco: Never Substance and Sexual Activity Alcohol use: Not Currently Drug use: Never Sexual activity: Not on file Other Topics Concern Not on file Social History Narrative Not on file IMMUNIZATION: Immunization History Administered Date(s) Administered DTaP (Infanrix) 6wks to less than 7yo 07/29/2012 Hepatitis A Adult (Havrix; Vaqta) 19yo and older 08/10/2015 Hepatitis B (Mqavtxr-B-Ltcxq, Recombivax HB-Adult) 19yo and older 08/15/2016, 09/12/2016, 02/20/2017 Influenza Quadravalent, MDCK, 0.5ml, preservative free (Flucelvax) 6mo and older 04/22/2021 Influenza trivalent, with preservative (Fluzone; Afluria) 6mo and older 03/20/2020 Meningococcal MCV4P 10/14/2018 Moderna SARS-CoV-2 COVID-19, mRNA, LNP-S, preservative free 09/20/2020, 10/18/2020 Tdap Tetanus diptheria acellular pertussis (Boostrix; Adacel) 7yo and older 10/30/2017 Zoster recombinant (Shingrix) 19yo and older 01/19/2019, 06/16/2019 PHYSICAL EXAM: Visit Vitals Pulse 56 Temp 36.2 ??C (97.1 ??F) (Temporal) Resp 20 Ht 1.778 m (70 ) Wt 89.4 kg (197 lb 3.2 oz) SpO2 100% BMI 28.30 kg/m?? Smoking Status Never BSA 2.07 m?? Physical Exam Constitutional: Appearance: Normal appearance. HENT: Head: Normocephalic and atraumatic. Nose: No congestion. Eyes: Pupils: Pupils are equal, round, and reactive to light. Cardiovascular: Rate and Rhythm: Normal rate and regular rhythm. Heart sounds: No murmur heard. Pulmonary: Effort: Pulmonary effort is normal. No respiratory distress. Breath sounds: Normal breath sounds. No stridor. No wheezing, rhonchi or rales. Abdominal: General: Bowel sounds are normal. There is no distension. Palpations: Abdomen is soft. Tenderness: There is no abdominal tenderness. Musculoskeletal: Right lower leg: No edema. Left lower leg: No edema. Neurological: Mental Status: He is alert. Diagnostic: CURRENTS ICD-10 PULMONARY DIAGNOSIS 1. Chronic asthmatic bronchitis (CMS/HCC) 2. Elevated diaphragm ASSESSMENT/PLAN: 1. Chronic bronchitis versus asthma. -Pathophysiology of chronic bronchitis/asthma were discussed. Treatment options of the various inhalers, along with techniques of use, and side effects were discussed. Maintenace of care of obstructive lung disease health such as various vaccinations, smoking cessation & avoidance of chemicals/fumes/inhalants were discussed. All questions were answered. -Trial of Arnuity 100 mcg, 1 puff daily. -Continue current albuterol MDI, 2 puff every 6 as needed. -Prescription for peak flow meter prescribed. 2. Elevated right diaphragm. -Observe. 3. Dyspnea with and without exertion, most likely related to deconditioning, and above. -Reviewed and discussed recent chest CT, 06/23/2024 finding with patient. All question answered. 4. RLL 3 mm nodule, stable with a non-smoker no family history of lung cancer. -Based on Fleischner criteria no further indication for serial CT of the chest. -Continue to observe. -Follow up with Gregg Todd MD for the other co-morbilities. RETURN TO THE NEXT VISIT: Based on physical exam, symptomatology, tests requested and baseline pulmonary evaluation/disease, I instructed the patient to come back to see me in 6 months for reevaluation after the test has beendone or earlier if the patient needed. Thanks Gregg Todd MD for allowing me to have the opportunity to assist in the care of this patient. This chart was generated by the [employer] EMR system and [employer] speech recognition software and may contain inherent errors or omissions not intended by the user. Grammatical errors, random word insertions, deletions, pronoun errors and incomplete sentences are occasional consequences of this technologydue to software limitations. Not all errors are caught or corrected. If there are questions or concerns about the content of this note or information contained within the body of this dictation they should be addressed directly with the author for clarification. @ELECSIG@ documented in this encounter Plan of Treatment Upcoming Encounters Date Type Department Care Team (Late st Contact Info) Description 07/25/2024 8:30 AM EST Office Visit Orthopedic Surgery - [place] [address] 175 [facility] [address] [place] [phone] Norberto Arcos MD 175 [facility] [address] [place] [address] 08/23/2024 9:00 AM EDT Office Visit Gastroenterology - [place] [address] [place] [phone] Alok Mccormack MD 175 [facility] [address] [place] [address] 09/28/2024 8:15 AM EDT Office Visit Internal Medicine - [place] 175 [facility] [address] [place] [phone] Gregg Todd MD 175 [facility] [address] [place] [address] 12/29/2024 8:45 AM EDT Office Visit Pulmonolgy - [place] 175 [facility] [address] [place] [phone] Felicia Sparrow MD 175 [facility] [address] [place] [address] documented as of this encounter Visit Diagnoses Diagnosis Chronic asthmatic bronchitis (CMS/[facility])- Primary Chronic obstructive asthma, unspecified Elevated diaphragm Disorders of diaphragm documented in this encounter Care Teams Hyster Driver Relationship Specialty Start Date End Date Gregg Todd MD 175 [place] [address] PCP - General Internal Medicine 04/17/21 documented as of this encounter
--- OUTSIDE RECORDS SUMMARY | 2024-07-20 09:47 | XMS_ITS | Continuity of Care Document ---
Author Organization [place] - [facility], [facility] Address [address] [place] [address] Care Team Providers Care Candle Maker Name Role Phone HARIKA HOLLINS Primary Care Provider Assessment No assessment recorded. Plan of Treatment Reminders Order Date Submit Date Provider Last Modified By Organization Details Last Modified Time Details Appointments Hearing Test 2024 10:30A M Hearing Test Not available Not available Not available Establish ed 30 2024 11:00A M RIC DIAL MD Not available Not available Not available Lab None recorded. Referral None recorded. Procedures None recorded. Surgeries None recorded. Imaging None recorded. Medication Orders ipratropi um bromide 21 mcg (0.03 %) nasal spray 2024 025 [id number], [address] [place], [address], 07/11/2024 14:49:25 Patient TargetsNo targets recorded. Patient Instructions Encounter Date Encounter Id Patient Instructions Last Modified By Organization Details Last Modified Time 07/11/2024 [id number] Note patient with chronic nasal obstruction for at least 1 year. He has been using [id number]-uik-[id number] decongestant preparations several times per day. Examination shows a septal deviation of the right side limiting endoscopy but no evidence of polyps. Suggest warm saline irrigations twice daily followed by ipratropium bromide 2 sprays each nostril 3 times daily. I will have him dilute the oxymetazoline or which ever yvfn-oas-wgztwcd decongestant preparation he is using 50% every 3 days. He will message me via the portal 3 weeks and if persistent sx consider CT scan kenyon Lutz available 07/11/2024 14:50:09 Reason for Referral None Reported. Problems Name Problem SNOMED Code Status Onset Date Resolution Date Notes Provider Name and Address Organization Details Recorded Time Bilateral tinnitus 55618497764 02 Active 2021 Tinnitus, bilateral ; Note: Date Diagnosed : 02/03/2022 3:11 PM (H93.13) Not Available [facility] 4 02:53:58 Disorder of smell 127417896 Active 2021 Other disturban kris of smell and taste; Note: Date Diagnosed : 02/03/2022 3:11 PM (R43.8) Not Available [facility] 4 02:54:02 Disorder of taste 739242108 Active 2021 Other disturban kris of smell and taste; Note: Date Diagnosed : 02/03/2022 3:11 PM (R43.8) Not Available [facility] 4 02:54:02 Sensorine ural hearing loss of bilateral ears 280172110 Active 2021 Sensorine ural hearing loss, bilateral ; Note: Date Diagnosed : 02/03/2022 3:11 PM (H90.3) Not Available [facility] 4 02:54:01 Deviated nasal septum 050003814 Active 2024 RIC ALBARADO MD [address] [place] [address], [place], [address] , [place] - [facility] 5 14:49:05 Chronic rhinitis 96739188 Active 2024 RIC ALBARADO MD [address] [place] [address], [place], [address] , [place] [facility] 5 14:49:12 Vasomotor rhinitis 1009295 Active 2024 RIC ALBARADO MD [address] [place] [address],[place] [address], [place], [phone] , [place] - [facility] 5 14:49:16 Problem Notes None recorded. Procedures Surgical History Date Name Laterality Status Provider Name and Address Organization Details Recorded Time JMSNasal/Sinus Endoscopy completed RIC CUTLER MD [address] [place] [address], [place], [phone], [place] - [facility] 07/11/2024 14:48:02 Imaging Results None recorded. Procedure Notes None recorded. Medical Equipment None Reported. Medications Name Sig Start Date Stop Date Status Note LastModified by Organization Details LastModified Time fluconazo le 100 mg tablet TAKE 1 TABLET BY MOUTH EVERY DAY FOR 14 DAYS active Not Available Not Available No t Available methocarb alvarez 500 mg tablet 07/07 completed Medicati on ID: [id number] B rand Name: methocar bamol Se nd Method: E-Prescr ibed Sub s Allowed: subs OK Medic ationGen ericName : methocar bamol Not Available Not Available Not Available nystatin 100,000 unit/mL oral suspensio n RINSE WITH 4 TO 6 ML IN MOUTH 4 TIMES A DAY active Not Available Not Available No t Available gabapenti n 600 mg tablet TAKE 1 TABLET BY MOUTH FOUR TIMES A DAY FOR PAIN active Not Available Not Available No t Available doxycycli ne hyclate 100 mg capsule TAKE 1 CAPSULE BY MOUTH EVERY DAY active Not Available Not Available No t Available tizanidin e 4 mg tablet TAKE 2 TABLETS BY MOUTH TWICE A DAY NEEDED FOR MUSCLE SPASMS active Not Available Not Available No t Available hydrocodo ne 5 mg-acetam inophen 325 mg tablet TAKE 1 TABLET BY MOUTH EVERY 4 TO 6 HOURS NEEDED FOR PAIN active Not Available Not Available No t Available fluconazo le 200 mg tablet TAKE 1 TABLET EVERY DAY BY MOUTH, FOR THRUSH. active Not Available Not Available No t Available omeprazol e 40 mg capsule,d elayed release TAKE 1 CAPSULE BY MOUTH EVERY DAY active Not Available Not Available No t Available meloxicam 7.5 mg tablet 07/07 completed Medicati on ID: [id number] B rand Name: meloxica m Send Method: E-Prescr ibed Sub s Allowed: subs OK Medic ationGen ericName : meloxica m Not Available Not Available Not Available oxycodone -acetamin ophen 5 mg-325 mg tablet TAKE 1 TABLET BY MOUTH 4 TIMES A DAY NEEDED FOR PAIN active Not Available Not Available No t Available terbinafi ne HCl 250 mg tablet TAKE 1 TABLET BY MOUTH EVERY DAY active Not Available Not Available No t Available tamsulosi n 0.4 mg capsule TAKE 1 CAPSULE BY MOUTH 30 MINUTES AFTER SAME MEAL EVERY DAY. active Not Available Not Available No t Available meclizine 25 mg tablet TAKE 1 TABLET BY MOUTH 3 TIMES DAILY NEEDED FOR VERTIGO active Not Available Not Available No t Available hydrocodo ne 7.5 mg-acetam inophen 325 mg tablet active Medicati on ID: [id number] B rand Name: hydrocod one-acet aminophe n Send Method: E-Prescr ibed Sub s Allowed: subs OK Medic ationGen ericName : hydrocod one-acet aminophe n Not Available Not Available Not Available simvastat in 20 mg tablet TAKE 1 TABLET BY MOUTH EVERYDAY AT BEDTIME active Not Available Not Available No t Available lidocaine 5 % topical patch APPLLY 1 PATCH TOPICALL Y DAILY FOR 30 DAYS12 HRS ON 12 HRS OFF active Not Available Not Available No t Available hydroxyzi ne HCl 25 mg tablet TAKE 1 TABLET BY MOUTH EVERY DAY FOR 90 DAYS, FOR ANXIETY. active Not Available Not Available No t Available mupirocin 2 % topical ointment APPLY TO AFFECTED AREA TWICE A DAY NEEDED active Not Available Not Available No t Available mirtazapi ne 15 mg tablet TAKE 1 TABLET BY MOUTH EVERY DAY AT NIGHT active Not Available Not Available No t Available ibuprofen 600 mg tablet TAKE 1 TABLET BY MOUTH EVERY 6 HOURS NEEDED active Not Available Not Available No t Available albuterol sulfate HFA 90 mcg/actua tion aerosol inhaler INHALE 2 PUFFS INTO THE LUNGS EVERY 6 HOURS NEEDED FOR COUGH/WH EEZE FOR UP TO 30 DAYS active Not Available Not Available No t Available hydroxyzi ne HCl 10 mg tablet active Medicati on ID: [id number] B rand Name: hydroxyz ine HCl Send Method: E-Prescr ibed Sub s Allowed: subs OK Medic ationGen ericName : hydroxyz ine HCl Not Available Not Available Not Available fluoxetin e 20 mg capsule TAKE 1 CAPSULE BY MOUTH EVERY DAY active Not Available Not Available No t Available fluticaso ne propionat e 50 mcg/actua tion nasal spray,evelyn pension USE 1 SPRAY INTO EACH NOSTRIL TWICE A DAY active Not Available Not Available No t Available ipratropi um bromide 21 mcg (0.03 %) nasal spray [place] 2 sprays 3 times a day by intranas al route. 2024 active Not Available Not Available Not Avai lable naproxen 500 mg tablet TAKE 1 TABLET BY MOUTH TWICE A DAY NEEDED FOR PAIN UNTIL GONE active Not Available Not Available No t Available amoxicill in 875 mg-potass ium clavulana te 125 mg tablet TAKE 1 TABLET BY MOUTH EVERY 12 HOURS UNTIL FINISHED active Not Available Not Available No t Available chlorhexi dine gluconate 0.12 % mouthwash SWISH 15ML IN MOUTH FOR 30 SECONDS THEN SPIT OUT TWICE A DAY active Not Available Not Available No t Available ferrous sulfate 324 mg (65 mg iron) tablet,de layed release TAKE 1 TABLET BY MOUTH 3 TIMES WEEKLY active Not Available Not Available No t Available diclofena c epolamine 1.3 % transderm al 12 hour patch APPLY 1 PATCH TO AFFECTED AREA EVERY DAY NEEDED active Not Available Not Available No t Available Biktarvy 50 mg-200 mg-25 mg tablet TAKE 1 TABLET BY MOUTH EVERY DAY active Not Available Not Available No t Available Egrifta SV 2 mg subcutane ous solution active Not Available Not Available Not Available Vitals Date Recorded Body height Body mass index (BMI) Body weight Provider Name and Address Organization Details Last Updated DateTime 07/11/2024 177.8 cm 28 kg/m2 01933.51 g Lea Sierra [place] - [facility] 07/11/2024 14:38:46 Social History None recorded. Functional Status None recorded. Mental Status None recorded. Family History Nothing Reported. Medical History Condition Response Allergies/Hayfever N Heart Problems N Anxiety Y Tonsil Infections N Emphysema N Migraines N Thyroid Problems N Depression Y COPD N Developmental Delay N Glaucoma N Nasal or Sinus Problems Y Anemia N Immune System Disorder N Anesthesia Complications N Heart Attack ([place]) N Other Skin Condition N Diabetes N Rhinitis N Bleeding Disorder N Food Allergy N Hearing Loss Y Arthritis Y Hyperlipidemia N Cancer N Stroke N Dementia N Nasal polyps Y Asthma N Sleep Disorder Y High Cholesterol Y GERD/Reflux Y Liver Disease N Headaches N Fibromyalgia N Hypertension Y Speech Delay N Kidney Disease N Past Encounters Encounter ID Performer Location Encounter Start Date Encounter Closed Date Diagnosis/Indication Diagnosis SNOMED-CT Code Diagnosis ICD10 Code Diagnosis Note [id number] RIC ALBARADO MD [facility] [address] [place] [address] 07/11/2024 14:12:51 07/11/2024 14:52:00 Deviated nasal septum 674329162 J34.2 Chronic rhinitis 6829594 6 J31.0 Bilateral tinnitus 11224 74348 102 H93.13 f/u with Audio Health Concerns Section Related Observation LastModified by Organization Detai ls LastModified Time None Recorded Concern Status LastModified by Organization Details LastModified Time None Recorded Payers Encounter Date Sequence Insurance Name Policy Number Policy Gunn Covered Member ID Gunn Member ID Guarantor Name 07/11/2024 1 [facility] - MEDICARE PREFERRED (MEDICARE REPLACEMENT HMO) [facility] Roni Willson [id number] Roni Willson 07/11/2024 2 [place] [facility] Roni Willson [id number] Roni Willson Notes Date Note Type Note Provider Name and Address Organization Details Recorded Time 07/11/2024 text/html h/o chronic bronchitis//asthma, lung nodule (RLL 3 mm), elevated right hemidiaphragm CAD, HTN, HLD, GERD, hepatitis, CKD, BPH, nephrolithiasis, HIV (dx 2019), MRSA skin infection, and anxiety with depression.Hx of bilateral tinnitusHas been using OTC decongestants for about 1 year usually twice per day or more. RIC CUTLER MD [address] [place] [address], [place], [address], [facility] - [facility] 07/11/2024 14:51:18
== END 2024-07-20 10:18 | disposition home or self-care (01) ==
PROVIDERS: PCP Internal Medicine; Visit Provider Internal Medicine
DX: M53.3 Sacrococcygeal disorders, not elsewhere classified (principal); M96.1 Postlaminectomy syndrome, not elsewhere classified; Z79.891 Long term (current) use of opiate analgesic
CPT/HCPCS: 99214

== ENCOUNTER → 2024-07-20 09:21 | Outpatient (BNVA) | payer MEDICARE, MEDICAID, SELFPAY | PROVIDERS: PCP Internal Medicine; Visit Provider Internal Medicine | DX: Z51.81 Encounter for therapeutic drug level monitoring (principal); M53.3 Sacrococcygeal disorders, not elsewhere classified; M96.1 Postlaminectomy syndrome, not elsewhere classified; Z79.891 Long term (current) use of opiate analgesic | CPT/HCPCS: 99212 ==

== ENCOUNTER 2024-07-28 07:32 | Outpatient (REF) | payer MEDICARE, MEDICAID, SELFPAY ==
--- NOTE | ~2024-07-28 | FL_ITS ---
EXAMINATION: FLUOROSCOPY GUIDANCE FOR NEEDLE PLACEMENT CLINICAL INFORMATION: M53.3 - Sacrococcygeal disorders, not elsewhere classified COMPARISON: None available. TECHNIQUE: Fluoroscopy guidance for a sacrococcygeal treatment planning. 2 images obtained. FINDINGS: 2 images obtained and-sacrococcygeal region during a procedure. FLUOROSCOPY TIME: 0.1 minutes. DOSE AREA PRODUCT: 1.36 uGy-m2 (microgray-meter squared) FL/FL guidance in treatment room IMPRESSION: Nondiagnostic fluoroscopy guidance for treatment episodes and the sacrococcygeal region. Please refer to procedure note. Electronically signed by: Derek Noonan MD 07/28/2024 11:28 AM ALONA
--- OUTSIDE RECORDS SUMMARY | 2024-07-28 07:34 | XMS_ITS | Clinical Summary ---
Author Organization [facility] Address [address] [place] [address] Care Team Providers Care Cloth Shrinking Tester Name Role Phone Gregg Todd MD Primary Care Provider Unavailab le Allergies No known active allergies Medications Medication Sig Dispensed Refills Start Date End Date Status HYDROcodone-acetamino phen (NORCO) 5-325 MG per tablet Take 1 tablet by mouth every 4 (four) hours as needed for pain. 0 Active celecoxib (CeleBREX) 100 MG capsule Take 1 capsule (100 mg total) by mouth 2 (two) times a day. 0 Active gabapentin (NEURONTIN) 600 MG tablet Take 1 tablet (600 mg total) by mouth every 6 (six) hours. 0 Active tiZANidine (ZANAFLEX) 4 MG tablet Take 1 tablet (4 mg total) by mouth every night at bedtime. Two tablets at bedtime. 0 Active FLUoxetine (PROzac) 20 MG capsule Take 1 capsule (20 mg total) by mouth every night at bedtime. 0 Active bictegravir-emtricita bine-tenofovir (Biktarvy) 50-200-25 MG TABS tablet Take 1 tablet by mouth every morning. 0 Active omeprazole (PriLOSEC) 40 MG capsule Take 1 capsule (40 mg total) by mouth daily. 0 Active simvastatin (ZOCOR) tablet 20 mg Take 1 tablet (20 mg total) by mouth daily. 0 Active ferrous sulfate 324 MG TBEC Take 1 tablet (324 mg total) by mouth 3 (three) times a week. 30 tablet 2 07/08/2023 Active Family History Medical History Relation Name Comments Bone cancer Brother Relation Name Status Comments Brother Social History Tobacco Use Types Packs/Day Years Used Date Smoking Tobacco: Never Smokeless Tobacco: Never Alcohol Use Standard Drinks/Week Comments Not Currently 0 (1 standard drink = 0.6 oz pur e alcohol) Quit at 30 years old. Sex and Gender Information Value Date Recorded Sex Assigned at Not on file Gender Identity Not on file Sexual Orientation Not on file Job Start Date Occupation Industry Not on file Not on file Not on file Last Filed Vital Signs Vital Sign Reading Time Taken Comments Blood Pressure 152/77 06/29/2023 8:22 AM EST Pulse 54 06/29/2023 8:22 AM EST Temperature 36.6 ??C (97.9 ??F) 06/29/2023 8:22 AM ES T Respiratory Rate - - Oxygen Saturation 100% 06/29/2023 8:22 AM EST Inhaled Oxygen Concentration - - Weight 89.2 kg (196 lb 9.6 oz) 06/29/2023 8:22 A M EST Height 177.8 cm (5' 10 ) 06/29/2023 8:22 AM EST Body Mass Index 28.21 06/29/2023 8:22 AM EST Plan of Treatment Health Maintenance Due Date Last Done Comments Hepatitis C Screening 1965 COVID-19 Vaccine (#1) 02/28/1969 Pneumococcal Vaccine (1 of 2 - PCV) 02/28/1970 Depression Screening 1976 Preventative Health Evaluation 02/28/1982 Colon Cancer Screening (Colonoscopy) 02/28/2009 Influenza Vaccine (#1) 2024 , 03/20/2020 DTap / Tdap / Td (3 - Td or Tdap) 10/31/2027 10/30/2017, 07/29/2012 RSV Adult > 60+ Yrs or (1 - 1-dose 75+ series) 02/28/2039 Hepatitis B Vaccines Completed 02/20/2017, 09/12/2016, 08/15/2016 Shingrix-Zoster Vaccine Completed 06/16/19 20, 01/19/2019 RSV Ped < 20 months Aged Out No longe r eligible based on patient's age to complete this topic Care Teams Cloth Shrinking Tester Relationship Specialty Start Date End Date Gregg Todd MD PCP - General Internal Medicine 06/29/23
--- OUTSIDE RECORDS SUMMARY | 2024-07-28 07:35 | XMS_ITS | Clinical Summary ---
Author Organization [facility] Address [address] [place] [address] Phone Care Team Providers Care Bobbin Winder Name Role Phone Gregg Todd MD Primary Care Provider [phone] Allergies No known active allergies Medications terbinafine (LamISIL) 250 mg tablet TAKE 1 TABLET BY MOUTH EVERY DAY 30 tablet 2 04/20/20 24 Active bictegravir-emtr icitabine-tenofo vir alafenamide (Biktarvy) 50-200-25 mg per tablet Take 1 Tab by mouth daily. 06/29/19 20 Active doxycycline (VIBRAMYCIN) 100 mg capsule Take 100 mg by mouth daily. 10/24/19 22 Active FLUoxetine (PROzac) 20 mg capsule Take 1 capsule (20 mg total) by mouth 1 (one) time each day. 02/23/20 24 Active gabapentin (NEURONTIN) 600 mg tablet TAKE 2 TABLETS BY MOUTH EVERY MORNING, 2 TABLETS AT LUNCH AND 1 TABLET AT BEDTIME 08/15/19 21 Active HYDROcodone-acet aminophen (NORCO) 7.5-325 mg per tablet 1 TAB BY MOUTH EVERY 6 HOURS NEEDED FOR SEVERE PAIN 10/25/19 22 Active lidocaine (LIDODERM) 5 % patch 02/06/20 22 Active mirtazapine (REMERON) 15 mg tablet TAKE 1 TABLET BY MOUTH EVERY DAY AT NIGHT 12/03/19 24 Active mirtazapine (REMERON) 30 mg tablet Take 1 Tablet by mouth daily. 08/21/19 23 Active mupirocin (BACTROBAN) 2 % ointment APPLY SPARINGLY TO AFFECTED AREA(S) 3 TIMES A DAY 05/23/20 11 Active simvastatin (ZOCOR) 20 mg tablet TAKE 1 TABLET BY MOUTH EVERYDAY AT BEDTIME 02/03/20 24 Active tiZANidine (ZANAFLEX) 4 mg tablet TAKE 2 TABLETS BY MOUTH TWICE A DAY NEEDED FOR MUSCLE SPASMS 02/03/20 24 Active zolpidem (AMBIEN) 5 mg tablet TAKE 1 TABLET BY MOUTH EVERY DAY AT BEDTIME 04/11/20 21 Active omeprazole (PriLOSEC) [address] capsule TAKE 1 CAPSULE BY MOUTH EVERY DAY 90 capsule 1 05/30/20 24 Active albuterol HFA (PROAIR HFA ; PROVENTIL HFA ; VENTOLIN HFA) 90 mcg/actuation inhalerIndicatio ns:Chronic bronchitis, unspecified chronic bronchitis type (CMS/HCC) Inhale 2 puffs by mouth every 6 (six) hours if needed for wheezing or shortness of breath. 1 each 05/30/20 24 025 Active meclizine (ANTIVERT) 25 mg tablet TAKE 1 TABLET BY MOUTH 3 TIMES DAILY NEEDED FOR VERTIGO 90 tablet 1 06/30/19 25 Active fluticasone furoate (Arnuity Ellipta) 100 mcg/actuation blister with device inhaler Inhale 1 puff by mouth 1 (one) time each day. 1 each 06/30/19 25 026 Active beclomethasone dipropionate (Qvar RediHaler) 80 mcg/actuation HFA aerosol breath activated inhaler Inhale 2 puffs by mouth 2 (two) times a day. 3 each 3 07/01/19 25 026 Active fluticasone propionate (FLONASE) 50 mcg/actuation nasal spray USE 1 SPRAY INTO EACH NOSTRIL TWICE A DAY 48 mL 1 07/18/19 25 Active tamsulosin (FLOMAX) 0.4 mg 24 hr capsule TAKE 1 CAPSULE BY MOUTH 30 MINUTES AFTER SAME MEAL EVERY DAY. 90 capsule 1 07/25/19 25 Active fluticasone propionate (FLONASE) 50 mcg/actuation nasal spray SPRAY 1 SPRAY INTO EACH NOSTRIL TWICE A DAY 01/21/20 24 025 Discontinued meclizine (ANTIVERT) 25 mg tablet TAKE 1 TABLET BY MOUTH 3 TIMES DAILY NEEDED FOR VERTIGO 02/23/20 24 025 Discontinued tamsulosin (FLOMAX) 0.4 mg 24 hr capsule Take 1 Capsule by mouth daily for 360 days. Take 30 mins after same meal every day. 09/29/19 24 025 Discontinued Active Problems Problem Noted Date Diagnosed [...] Plan: Mr. Willson is being followed at [facility] by Dr. Carreno where he [...] Encounters Date Type Department Care Team Description 07/25/2024 8:30 AM EST Office Visit Orthopedic Surgery - [place] [address] [facility] [address] [place] [phone] Norberto Arcos MD Left shoulder pain (Primary Dx) 07/14/2024 Telephone Internal Medicine - [place] [address] [facility] [address] [place] [phone] Lia Bae [place] Referral 06/30/2024 9:00 AM EST Office Visit Pulmonolgy - [place] [address] [facility] [address] [place] [phone] Felicia Sparrow MD Chronic asthmatic bronchitis (CMS/HCC) (Primary Dx); Elevated diaphragm 06/23/2024 9:48 AM EST - 06/23/2024 11:59 PM EST Hospital Encounter [facility] CT Scan [address] [place] [phone] of the chest; Lung nodules Discharge Disposition: Home or Self Care 06/09/2024 8:30 AM EST Consult Orthopedic Surgery - [place] [address] [facility] [address] [place] [phone] Norberto Arcos MD Impingement of right shoulder (Primary Dx); Shoulder pain 05/30/2024 8:45 AM EST Office Visit Pulmonolgy [facility] [address] [facility] [address] [place] [phone] Felicia Sparrow MD Chronic bronchitis, unspecified chronic bronchitis type (CMS/HCC) (Primary Dx); Chronic sinusitis, unspecified location; Abnormal CT of the chest; Lung nodules 05/27/2024 11:49 AM EST - 05/27/2024 11:59 PM EST Hospital Encounter [facility] [address] [place] [address] Dyspnea, unspecified type Discharge Disposition: Home or Self Care from Last 3 Months Immunizations Name Administration Dates Next Due DTaP (Infanrix) 6wks to less than 7yo 07/29/2012 Hepatitis A Adult (Havrix; V aqta) 19yo and older 08/10/2015 Hepatitis B (Xqjnptk-X-Ujpzz , Recombivax HB-Adult) 19yo and older 02/20/2017,09/12/2016,08/15/2016 [...] lumbar disc HIV (human immunodeficiency virus infection) ([facility]) 01/04/2019 DX:HIV (human immunodeficien cy virus infection) ([facility]) Hypertension 01/04/2019 DX:Hypertension Spinal stenosis, lumbar 02/02/2019 [...] Hypertension DX:Hypertension HIV (human immunodeficiency virus infection) (CMS/HCC) DX:HIV (human immunodeficien cy virus infection) (HCC) Anemia DX:Anemia Family History Medical History Relation [...] Recorded Sex Assigned at Not on file Legal Sex Male 3:16 PM EST Gender Identity Not on file Sexual Orientation Not on file Obstetrics History Last Filed [...] Care Team (Late st Contact Info) Description 08/23/2024 9:00 AM EDT Office Visit Gastroenterology [facility] [address] [phone] Alok Mccormack MD [address] [address] 09/28/2024 8:15 AM EDT Office Visit Internal Medicine [facility] [address] [phone] Gregg Todd MD [address] [address] 12/29/2024 8:45 AM EDT Office Visit Pulmonolgy - [place] [address] [facility] [address] [place] [phone] Felicia Saprrow MD 175 [facility] [address] [place] [address] Health Maintenance Due Date Last Done Comments MMR Vaccines (1 of 2 - Risk 2-dose series) 02/28/1982 Pneumococcal Vaccine: 50+ Years (1 of 2 - PCV) 02/28/1983 Pneumococcal Vaccine: Pediatrics (0 to 5 Years) and At-Risk Patients (6 to 64 Years) (1 of 2 - PCV) 02/28/1983 Hepatitis A Vaccines (2 of 2 - Risk 2-dose series) 02/08/2016 08/10/2015 DTaP,Tdap,and Td Vaccines (3 - Td or Tdap) 05/02/2018 10/30/2017, 07/29/2012 Meningococcal ACWY Vaccine ( 2 - Risk [...] Annual BMP Blood Test 04/27/2025 04/27/2024, 09/29/2023 Cholesterol Screening (Lipid Panel) 04/27/2029 04/27/2024, 09/29/2023 [...] on patient's age to complete this topic Meningococcal B Vacine Aged Out No lo nger eligible based on patient's age to complete this topic RSV Immunization Patients Under 20 months Aged Out No longer eligible b ased on patient's age to complete this topic Varicella Vaccines Aged Out No longer eligible based on patient's age to complete this topic Procedures Procedure Name Priority Date/Time Associated Diagnosis Comments XR SHOULDER 2+ VIEWS LEFT Routine 07/25/2024 9:10 AM EST Left shoulder pain CT CHEST WO CONTRAST Routine 06/23/2024 10:[address] of the chest Lung nodules XR SHOULDER 2+ VIEWS RIGHT Routine 06/09/2024 8:55 AM EST Pain RI ARTHROCENTESIS/ASPIRAT ION/INJECTION MAJOR JOINT/BURSA W/O U/S GUIDANCE [...] Recently Relevant to Health Maintenance Results * XR Shoulder 2+ Views Left (07/25/2024 9:10 AM EST) Anatomical Region Laterality Modality Upper Extremities, Shoulder Left Comp uted Radiography Narrative 07/25/2024 6:01 PM EST 4 view x-ray of the left shoulder shows no evidence of fracture or dislocation, there are degenerative changes at acromioclavicular joint with osteophyte formation. ??There is also mild glenohumeral arthritic changes with inferior glenoid marginal osteophyte formation and joint space narrowing. ??Soft tissue shadows appear normal. ?? Impression: Mild glenohumeral arthritis and acromioclavicular degenerative changes. Norberto Arcos MD IMG XR PROCEDURES Final Result * CT Chest wo Contrast (06/23/2024 10:06 [...] Signed Date: 06/30/2024 09:37 ET Workstation ID: [id number] Transcribed By: Self Edit Transcribed Date: 06/30/2024 09:30 ET Narrative 06/30/2024 9:37 AM EST INDICATION: Pulmonary nodule TECHNIQUE: CT scan of the chest obtained without contrast. Scanner: Motility Count 128 slice VCT Dose reduction technique: ASIR [...] of the chest obtained without contrast. Scanner: Motility Count 128 slice VCT Dose reduction technique: ASIR [...] Signed Date: 06/30/2024 09:37 ET Workstation ID: [id number] Transcribed By: Self Edit Transcribed Date: 06/30/2024 09:30 ET Felicia Sparrow MD IM CT PROCEDURES Final Result * XR Shoulder 2+ Views Right (06/09/2024 [...] of the right shoulder without osseous abnormalities us Norberto Arcos MD IMG XR PROCEDURES Final Result * RI ARTHROCENTESIS/ASPIRATION/INJECTION MAJOR JOINT/BURSA W/O U/S GUIDANCE (06/09/2024 [...] yes ?? Norberto Arcos MD IN CLINIC/BEDSIDE ORDERABLES Fin al Result * XR Chest 2 Views (05/27/2024 11:56 AM EST) Anatomical Region Laterality Modality Body Radiographic Eleanor ging 05/27/2024 6:36 PM EST Impressions 05/27/2024 6:40 PM EST No evidence of an acute chest process. POS - [id number] -------- FINAL REPORT -------- Dictated By: María Valderrama Dictated Date: 05/27/2024 18:36 ET Assigned Physician: María Valderrama Reviewed and Electronically Signed By: María Valderrama Signed Date: 05/27/2024 18:40 ET Workstation ID: [id number] Transcribed By: Self Edit Transcribed Date: 05/27/2024 [...] of an acute chest process. POS - [id number] -------- FINAL REPORT -------- Dictated By: María Valderrama Dictated Date: 05/27/2024 18:36 ET Assigned Physician: María Valderrama Reviewed and Electronically Signed By: María Valderrama Signed Date: 05/27/2024 18:40 ET Workstation ID: [id number] Transcribed By: Self Edit Transcribed Date: 05/27/2024 18:36 ET us Felicia Sparrow MD IMG XR PROCEDURES Final Result * Thyroid stimulating hormone with reflex to free t4 and free t3 (04/27/2024 9:41 AM EST) Pathologist [facility] TSH 1.94 0.40 - 4.00 mcIU/mL LAB CHEMISTRY METHOD 04/27/2024 11:56 AM EST [facility] Blood Venous blood specimen / Unknown Venipuncture / Unknown 04/27/2024 9:41 AM EST 04/27/2024 9:41 AM EST us Gregg Todd MD LAB BLOOD ORDERABLES Final Resul t [facility] [address] [place] [address], [place] [phone] * (ABNORMAL) Lipid panel with reflex to direct LDL (04/27/2024 9:41 AM EST) [facility] Cholesterol 206(H) 0 - 200 mg/dL LAB CHEMISTRY METHOD 04/27/2024 11:51 AM [facility] Triglycerides 107 0 - 150 mg/dL LAB CHEMISTRY METHOD 04/27/2024 11:51 AM EST [facility] HDL 64 >=40 mg/dL LAB CHEMISTRY METHOD 04/27/2024 11:51 AM [facility] LDL Calculated 121(H) 0 - 100 mg/dL LAB CHEMISTRY METHOD 04/27/2024 11:51 AM EST [facility] VLDL Cholesterol Yovany 21.4 mg/dL LAB CHEMISTRY METHOD 04/27/2024 11:51 AM [facility] Non HDL Chol. (LDL+VLDL) 142 <145 mg/dL LAB CHEMISTRY METHOD 04/27/2024 11:51 AM [facility] Chol/HDL Ratio 3.2 0.0 - 4.4 LAB CHEMISTRY METHOD 04/27/2024 11:51 AM [facility] Blood Venous blood specimen / Unknown Venipuncture / Unknown 04/27/2024 9:41 AM EST 04/27/2024 9:41 AM EST us Gregg Todd MD LAB BLOOD ORDERABLES Final Resul t [facility] [address] [place] [address], [place] [phone] * (ABNORMAL) CBC auto differential (04/27/2024 9:41 AM EST) WBC 6.9 4.8 - 10.8 K/mcL LAB HEMETOLOGY METHOD 04/27/2024 10:48 AM [facility] RBC 4.90 4.50 - 5.50 M/mcL LAB HEMETOLOGY METHOD 04/27/2024 10:48 AM [facility] Hemoglobin 14.6 13.5 - 17.5 g/dL LAB HEMETOLOGY METHOD 04/27/2024 10:48 AM [facility] Hematocrit 44.4 42.0 - 54.0 % LAB HEMETOLOGY METHOD 04/27/2024 10:48 AM [facility] MCV 90.4 79.0 - 98.0 FL LAB HEMETOLOGY METHOD 04/27/2024 10:48 AM [facility] MCH 29.7 27.0 - 32.0 pcg LAB HEMETOLOGY METHOD 04/27/2024 10:48 AM [facility] MCHC 32.9 32.0 - 37.0 g/dL LAB HEMETOLOGY METHOD 04/27/2024 10:48 AM [facility] RDW 13.5 11.0 - 15.0 % LAB HEMETOLOGY METHOD 04/27/2024 10:48 AM [facility] Platelets 269 130 - 400 K/mcL LAB HEMETOLOGY METHOD 04/27/2024 10:48 AM [facility] MPV 11.1(H) 7.0 - 11.0 FL LAB HEMETOLOGY METHOD 04/27/2024 10:48 AM [facility] NRBC 0.0 <1.0 % LAB HEMETOLOGY METHOD 04/27/2024 10:48 AM [facility] NRBC Absolute 0.00 <0.10 K/mcL LAB HEMETOLOGY METHOD 04/27/2024 10:48 AM [facility] Neutrophils Relative 63.1 % LAB HEMETOLOGY METHOD 04/27/2024 10:48 AM [facility] Lymphocytes Relative 24.7 % LAB HEMETOLOGY METHOD 04/27/2024 10:48 AM [facility] Monocytes Relative 9.3 % LAB HEMETOLOGY METHOD 04/27/2024 10:48 AM [facility] Eosinophils Relative 2.2 % LAB HEMETOLOGY METHOD 04/27/2024 10:48 AM [facility] Basophils Relative 0.4 % LAB HEMETOLOGY METHOD 04/27/2024 10:48 AM [facility] Immature Granulocytes Relative 0.3 % LAB HEMETOLOGY METHOD 04/27/2024 10:48 AM [facility] Neutrophils Absolute 4.36 1.50 - 7.00 K/mcL LAB HEMETOLOGY METHOD 04/27/2024 10:48 AM [facility] Lymphocytes Absolute 1.71 1.00 - 5.00 K/mcL LAB HEMETOLOGY METHOD 04/27/2024 10:48 AM [facility] Monocytes Absolute 0.64 0.20 - 1.00 K/mcL LAB HEMETOLOGY METHOD 04/27/2024 10:48 AM EST [facility] Eosinophils Absolute 0.15 0.00 - 0.50 K/mcL LAB HEMETOLOGY METHOD 04/27/2024 10:48 AM EST [facility] Basophils Absolute 0.03 0.00 - 0.20 K/[facility] LAB HEMETOLOGY METHOD 04/27/2024 10:48 AM EST [facility] Immature Granulocytes Absolute 0.02 0.00 - 0.03 K/[facility] LAB HEMETOLOGY METHOD 04/27/2024 10:48 AM [facility] Blood Venous blood specimen / Unknown Venipuncture / Unknown 04/27/2024 9:41 AM EST 04/27/2024 9:41 AM EST us Gregg Todd MD LAB BLOOD ORDERABLES Final Resul t [facility] [address] [place] [address], [place] [phone] * (ABNORMAL) Comprehensive metabolic panel (04/27/2024 9:41 AM EST) Sodium 138 133 - 145 mmol/L LAB CHEMISTRY METHOD 04/27/2024 11:51 AM [facility] Potassium 4.8 3.5 - 5.5 mmol/L LAB CHEMISTRY METHOD 04/27/2024 11:51 AM [facility] Chloride 106 96 - 110 mmol/L LAB CHEMISTRY METHOD 04/27/2024 11:51 AM [facility] CO2 27 21 - 32 mmol/L LAB CHEMISTRY METHOD 04/27/2024 11:51 AM [facility] Anion Gap 5 3 - 11 LAB CHEMISTRY METHOD 04/27/2024 11:51 AM [facility] Glucose 99 70 - 100 mg/dL LAB CHEMISTRY METHOD 04/27/2024 11:51 AM [facility] BUN 22 5 - 25 mg/dL LAB CHEMISTRY METHOD 04/27/2024 11:51 AM [facility] Creatinine 0.99 0.70 - 1.30 mg/dL LAB CHEMISTRY METHOD 04/27/2024 11:51 AM [facility] eGFR 87 >=60 mL/min/1. 73m2 LAB CHEMISTRY METHOD 04/27/2024 11:51 AM [facility] Comment:Calculation based on the??Chronic Kidney Disease Epidemiology Collaboration (CKD-EPI) equation refit??without adjustment for race. BUN/Creatinine Ratio 22.2 LAB CHEMISTRY METHOD 04/27/2024 11:51 AM [facility] Calcium 9.4 8.5 - 10.5 mg/dL LAB CHEMISTRY METHOD 04/27/2024 11:51 AM [facility] AST (SGOT) 43(H) 10 - 42 unit/L LAB CHEMISTRY METHOD 04/27/2024 11:51 AM [facility] ALT (SGPT) 81(H) 10 - 60 unit/L LAB CHEMISTRY METHOD 04/27/2024 11:51 AM [facility] Alkaline Phosphatase 90 42 - 121 unit/L LAB CHEMISTRY METHOD 04/27/2024 11:51 AM [facility] Total Protein 6.9 6.0 - 8.0 g/dL LAB CHEMISTRY METHOD 04/27/2024 11:51 AM [facility] Albumin 4.2 3.2 - 5.0 g/dL LAB CHEMISTRY METHOD 04/27/2024 11:51 AM [facility] Total Bilirubin 0.7 0.0 - 1.4 mg/dL LAB CHEMISTRY METHOD 04/27/2024 11:51 AM [facility] Blood Venous blood specimen / Unknown Venipuncture / Unknown 04/27/2024 9:41 AM EST 04/27/2024 9:41 AM EST Gregg Todd MD LAB BLOOD ORDERABLES Final Resul t [facility] [address] [place] [address], * Colonoscopy (09/22/2014) Colonoscopy Abstracted Anatomical Region Laterality Modality Other Historical Provider HEALTH MAINTENANCE Final Result from Last 3 Months or Most Recently Relevant to Health Maintenance Insurance [employer] [place] Care Teams Bobbin Winder Relationship Specialty Start Date End Date Gregg Todd MD [address] [facility] [address] [place] [address] PCP - General Internal Medicine 04/17/21
--- OUTSIDE RECORDS SUMMARY | 2024-07-28 07:35 | XMS_ITS | Encounter Summary ---
Author Organization [facility] Address [address] [place] [address] Care Team Providers Care Automotive Service Manager Name Role Phone Gregg Todd MD Primary Care Provider [phone] Reason for Visit * Reason Comments Pain Follow-up Encounter Details Date Type Department Care Team ([facility] st Contact Info) Description 07/25/2024 8:30 AM EST Office Visit Orthopedic Surgery - [place] [address] [facility] [address] [place] [phone] Norberto Arcos MD 175 [facility] [place] [address] [place] [address] Left shoulder pain (Primary Dx) Social History Tobacco Use Types Packs/Day Years Used Date Smoking Tobacco: Never Smokeless Tobacco: Never Alcohol Use Standard Drinks/Week Comments Not Currently 0 (1 standard drink = 0.6 oz pur e alcohol) Sex and Gender Information Value Date Recorded Sex Assigned at Not on file Legal Sex Male 3:16 PM EST Gender Identity Not on file Sexual Orientation Not on file documented as of this encounter Progress Notes * Norberto Arcos MD - 07/25/2024 8:30 AM EST Date: July 20, 2024 Diagnosis: atraumatic chronic right shoulder pain (CSI 06/09/24), likely cervical radiculopathy New complaint: Left shoulder pain Last seen: 06/09/24 HPI: Roni Willson is a 59 y.o. male ytklp-bzkp-wfquoale past medical history of lumbar stenosis status post 5 lumbar spine surgeries per his report, presenting for followup regarding his right shoulder pain. He underwent a corticosteroid injection and we referred him to physical therapy. He says that he has been doing physical therapy exercises at home. He says that the corticosteroid injection did not improve his pain in any noticeable way.. He says he is also started to have pain in his leftshoulder. He says that he had better improvement from the ultrasound-guided corticosteroid injection in his right shoulder in February. He also reports electric type pain that radiates into his shoulder and occasionally radiates down into his middle forearm. He finds that he has to rest with his hands over his head and this improves his pain. He also endorses neck pain and did pain in his left trapezius. SANE Score: 80 bilaterally Objective Focused Exam: Positive Spurling sign bilaterally RUE No tenderness to palpation over the trapezius AROM FF/abduction/ER/IR: 180/170/80/L1 5/5 rotator cuff strength testing at 0 and 90 degrees of abduction without pain Supraspinatus: negative Slick's Test Subscapularis: negative Bear hug Impingement: painless Neer's Test painless Hawkin's Test AC Joint: No TTP LUE TTP over the left trapezius AROM FF/abduction/ER/IR: 180/170/80/L1 5/5 rotator cuff strength testing at 0 and 90 degrees of abduction Supraspinatus: negative Slick's Test Subscapularis: negative Bear hug Impingement: pain with Neer's Test negative Hawkin's Test AC Joint: no TTP Imagin view x-ray of the left shoulder shows no evidence of fracture or dislocation, there are degenerative changes at acromioclavicular joint with osteophyte formation. There is also mild glenohumeral arthritic changes with inferior glenoid marginal osteophyte formation and joint space narrowing. Soft tissue shadows appear normal. Impression: Mild glenohumeral arthritis and acromioclavicular degenerative changes. Medical Decision Making (base on 2 out of 3 elements): Problems Addressed: Moderate- 2 or more stable, chronic illnesses Tests Ordered and/or Reviewed: Low: ordering x-ray of the left shoulder Risk Level: Low risk Assessment: Roni Willson presents with history and exam most consistent with cervical radiculopathy today. At his last appointment he received a subacromial corticosteroid injection which he said did not improve his symptoms in his shoulder. He does not show signs of impingement today and has full rotator cuff strength. He additionally reports some sharp electric pains into shoulders and sometimes radiate into his forearms.he has a positive Spurling sign on exam he also finds resting with a position of his hands over his head and improves his pain. We explained his likely diagnosis and how his symptoms are most likely related to a cervical spine issue. We discussed further diagnostic testing such as MRI of the cervical spine or nerve conduction study. As he has established care with a spine surgeon he said he would like to followwith them. I encouraged him to return for any new or worsening symptoms or if he has any other questions or concerns. Plan: Bilateral shoulder pain -s/p right shoulder subacromial CSI w/out improvement 06/09/24 -appears most likely consistent with cervicalgia, myofascial pain and possible radiculopathy -F/u as needed Cervical radiculopathy - Continue with follow-up in pain management - Should follow-up with his established spine surgeon Dr. Griffith, patient declines referral saying he is an established patient for his lumbar spine. Norberto Arcos MD documented in this encounter Plan of Treatment Upcoming Encounters Date Type Department Care Team (Late st Contact Info) Description 08/23/2024 9:00 AM EDT Office Visit Gastroenterology - [place] [address] [phone] Alok Mccormack MD [address] [address] 09/28/2024 8:15 AM EDT Office Visit Internal Medicine - [place] [address] [phone] Gregg Todd MD [address] [address] 12/29/2024 8:45 AM EDT Office Visit Pulmonolgy - [place] [address] [phone] Felicia Sparrow MD 175 [facility] [address] [place] [address] documented as of this encounter Results * XR Shoulder 2+ Views Left [...] Arcos MD IMG XR PROCEDURES Final Result documented in this encounter Visit Diagnoses Diagnosis Left shoulder pain- Primary Pain in joint, shoulder region documented in this encounter Care Teams Automotive Service Manager Relationship Specialty Start Date End Date Gregg Todd MD 175 [facility] 200 [place] [address] PCP - General Internal Medicine 04/17/21 documented as of this encounter
--- OUTSIDE RECORDS SUMMARY | 2024-07-28 07:35 | XMS_ITS | Encounter Summary ---
Author Organization [facility] Address [address] [place] [address] Care Team Providers Care Technical Maintenance Specialist Name Role Phone Gregg Todd MD Primary Care Provider [phone] Reason for Visit * Reason Comments Asthma Results Ct scan * Consultation (Routine) - Authorized Specialty Diagnoses / Procedures Referred By Contac t Referred To Contact Pulmonology Diagnoses N/A Procedures N/A Gregg Todd MD [address] [place] [address] Phone: tel: fax: Felicia Sparrow MD [address] [address] Phone: tel: fax: Referral ID Status Reason Start Date Expiration Date V isits Requested Visits Authorized [id number] Authorized 05/23/2024 05/23/2025 12 12 Encounter Details Date Type Department Care Team ([facility] st Contact Info) Description 06/30/2024 9:00 AM EST Office Visit Pulmonolgy - [place] [address] [phone] Felicia Sparrow MD [address] [address] Chronic asthmatic bronchitis (CMS/HCC) (Primary Dx); Elevated [...] in this encounter Ordered Prescriptions Prescription Sig Dispense Quantity Refills Last Filled Start Date End Date fluticasone furoate (Arnuity Ellipta) 100 mcg/actuation blister [...] opacity. Patient underwent a cardiac CT at [facility] on 10/18/22 which showed no GGO. A [...] Vaqta) 19yo and older 08/10/2015 Hepatitis B (Ctcreoe-S-Yleml, Recombivax HB-Adult) 19yo and older 08/15/2016, 09/12/2016, [...] patient. This chart was generated by the [employer] EMR system and [employer] speech recognition software and may contain inherent [...] Upcoming Encounters Date Type Department Care Team ([facility] st Contact Info) Description 08/23/2024 9:00 AM EDT Office Visit Gastroenterology - [address] [phone] Alok Mccormack MD [address] [place] [address] 09/28/2024 8:15 AM EDT Office Visit Internal Medicine - [address] [phone] Gregg Todd MD [address] [place] [address] 12/29/2024 8:45 AM EDT Office Visit Pulmonolgy - [address] [phone] Felicia Sparrow MD [address] [place] [address] documented as of this encounter Visit Diagnoses Diagnosis Chronic asthmatic bronchitis (CMS/HCC)- Primary Chronic obstructive asthma, unspecified Elevated diaphragm Disorders of diaphragm documented in this encounter Care Teams Technical Maintenance Specialist Relationship Specialty Start Date End Date Gregg Todd MD [address] [address] PCP - General Internal Medicine 04/17/21 documented as of this encounter
--- OUTSIDE RECORDS SUMMARY | 2024-07-28 07:35 | XMS_ITS | Encounter Summary ---
Author Organization [facility] Address [address] [place] [address] Care Team Providers Care Cotton Ginner Name Role Phone Gregg Todd MD Primary Care Provider [phone] Reason for Visit * Reason Onset Date Comments Referral 07/14/2024 Encounter Details Date Type Department Care Team (Late st Contact Info) Description 07/14/2024 Telephone Internal Medicine - [place] 175 [facility] [address] [place] [phone] Lia Bae MA Referral Social History Tobacco [...] as of this encounter Progress Notes * Zana Burnham MA - 07/20/2024 4:12 PM EST ENT Referral faxed as requested to [phone]. * Nathalie Mcconnell - 07/20/2024 2:29 PM EST ENT surgeons called and requested to know the status of this referral. They are still waiting to receive the referral to schedule an appt for pt. Please fax referral to . * Gregg Todd MD - 07/17/2024 6:29 AM EST Referral was placed earlier * Lia Bae MA - 07/14/2024 2:18 PM EST Received a fax from [facility] for a request for referral (P): [phone] (F): [phone] documented in this encounter Plan of Treatment Upcoming Encounters Date Type Department Care Team (Late st Contact Info) Description 08/23/2024 9:00 AM EDT Office Visit Gastroenterology - [place] [address] [phone] Alok Mccormack MD [address] [address] 09/28/2024 8:15 AM EDT Office Visit Internal Medicine - [place] [address] [phone] Gregg Todd MD [address] [address] 12/29/2024 8:45 AM EDT Office Visit Pulmonolgy - [place] [address] [phone] Felicia Sparrow MD [address] [address] documented as of this encounter Visit Diagnoses Not on filedocumented in this encounter Care Teams Cotton Ginner Relationship Specialty Start Date End Date Gregg Todd MD [address] [address] PCP - General Internal Medicine 04/17/21 documented as of this encounter
== END 2024-07-28 07:33 | disposition home or self-care (01) ==
LOC: CF 07:32
PROVIDERS: Visit Provider Internal Medicine
DX: M53.3 Sacrococcygeal disorders, not elsewhere classified (principal)
CPT/HCPCS: 27096; J2003; J2795; J3301

== ENCOUNTER 2024-07-28 09:42 | Outpatient (AMB) | payer MEDICARE, MEDICAID, SELFPAY ==
[2024-07-28 10:03] VITALS: BP 134/69; PULSE 70; O2SAT 99; BMI 28.4
--- NOTE | 2024-07-28 10:03 | MHC.OFFVIS ---
Vital Signs 07/28/24 10:03 Height 5 ft 10 in Weight 198 lb BMI 28.4 BP 134/69 Blood Pressure Location Lt brachial Position Sitting Pulse 70 Pulse Source Pulse Oximeter Pulse Oximetry (%) 99 Oxygen Delivery Method Room Air Intake Visit Reasons: Left theraputic SIJ inj Irrigation Equipment Remover Required: No Allergies No Known Allergies Allergy (Verified 07/28/24 10:04) Medication List - Last Reconciled 07/28/24 by Alida Bray, MEDICAL EDUCATION MANAGER albuterol sulfate 90 mcg/actuation 2 puffs inhalation Q6H PRN alprazolam 0.5 mg PO TID PRN sfrnpniep-icwwvmjm-ztvmlsf ala 50-200-25 mg (Biktarvy) 1 tab PO DAILY celecoxib 100 mg PO BID PRN chlorhexidine gluconate 0.12% 15 mL PO BID doxycycline hyclate 100 mg PO DAILY ferrous sulfate 324 mg PO 3XW fluoxetine 20 mg PO DAILY fluticasone propionate 50 mcg/actuation 1 spray intranasal BID gabapentin 600 mg PO QID hydrocodone-acetaminophen 5-325 mg 1 tab PO Q4-6H PRN lidocaine 5% 1 patch topical DAILY 30 days meclizine 25 mg PO DAILY PRN mupirocin 2% topical DAILY naloxone 4 mg/actuation (Narcan) 4 mg intranasal Q2M PRN omeprazole 40 mg PO DAILY simvastatin 20 mg PO BEDTIME terbinafine HCl 250 mg PO DAILY zolpidem 5 mg PO BEDTIME PRN HPI HPI Left theraputic SIJ inj: Details: Patient presents for scheduled procedure. Denies any recent cough, cold, infection, fever or other significant changes in medical history since last office visit. Physical Exam Vital Signs: Last Vital Signs Pulse 70 07/28/24 10:03 BP 134/69 07/28/24 10:03 Pulse Ox 99 07/28/24 10:03 Oxygen Delivery Method Room Air 07/28/24 10:03 BMI result Body Mass Index 28.4 Office Procedures AMB Joint Injection/Aspiration Joint Injection/Aspiration Details: Sacroiliac Joint Injection, Left The procedure, its benefits, and its risks were explained and written informed consent was obtained from the patient. Immediately prior to starting the procedure, a time-out safety check was conducted. The patient's identification, procedure name, procedure site, and procedure laterality were confirmed with the patient. ? Patient was placed prone on the fluoroscopy table and the lumbosacral area was prepped using ChloraPrep and draped with sterile drapein standard fashion. The C-arm was rotated in a contralateral oblique fashion until the medial border of the iliac crest no longer foreshadowed the posterior sacroiliac joint line. The skin and subcutaneous tissue was anesthetized using 1 mL of 0.75% plain lidocaine with 1.5-inch 25-gauge needle in the middle region of the joint line.? A 3.5-inch 22-gauge spinal needle with small bend on the tip was slowly advanced towards the joint line, coaxial to the x-ray beam. Once bony content was obtained, the needle was easily slid into the intra-articular space.? Intra-articular needle position was confirmed using lateral fluoroscopy.? A total volume of 2.5mL of solution containing 40 mg triamcinolone and rest 0.5% of ropivacaine was injected intra-articularly. The stylet was reinserted and needle was removed. The patient tolerated the procedure well. Patient denied any lower extremity weakness or numbness. Patient was observed for 30 min and was discharged after fulfilling the standard discharge criteria. Coding 70829 - Sacroiliac Procedure code (CPT) selection complete Office Meds lidocaine (PF) 10 mg/mL (1 %) injection solution Performing Provider: Edmond Mckeon MD Performing Location: [facility] Administered by: Edmond cMkeon MD on 07/28/24 12:23 Dose Route Admin Location Dispensed Lot Number Expiration Date [facility] Cut[employer] And Splicing Supervisor 5 mL Infiltration 5 mL Kenalog 40 mg/mL suspension for injection Performing Provider: Edmond Mckeon MD Performing Location: [facility] Documented (not given) by: Edmond Mckeon MD on 07/28/24 12:23 Dose Route Admin Location Dispensed Lot Number Expiration Date [facility] [employer]ting And Splicing Supervisor 40 mg intrasynovial mL Assessment & Plan Assessment & Plan (1) Sacroiliac joint dysfunction: Code(s): M53.3 - Sacrococcygeal disorders, not elsewhere classified Category: Medical Plan Patient is status post left SI joint injection. Patient tolerated procedure well and was discharged home in stable condition with discharge instructions. All questions were answered. We will follow-up via telephone or in clinic to assess response to therapy. A follow-up appointment was made during today's visit. Orders: Orders FL guidance in treatment room Today Sharda Finch APRN, [employer] M53.3 - Sacrococcygeal disorders, not elsewhere classified AMB Joint Injection/Aspiration Today Edmond Mckeon MD M53.3 - Sacrococcygeal disorders, not elsewhere classified Medications: New Kenalog (triamcinolone acetonide) 40 mg intrasynovial ONCE 1 mL 0RF NS Edmond Mckeon MD M53.3 - Sacrococcygeal disorders, not elsewhere classified Coding Level of Care Code Procedure Only Diagnoses Sacroiliac joint dysfunction M53.3 CPT Codes Coding - Joint 9: 55346 - Sacroiliac ([id number])
--- OUTSIDE RECORDS SUMMARY | 2024-07-28 10:13 | XMS_ITS | Clinical Summary ---
Author Organization LL 175 [facility] Address 175 [place] [address] Phone Care Team Providers Care Gardening Instructor Name Role Phone Gregg Todd MD Primary Care Provider [phone] Allergies No known active allergies Medications terbinafine [...] Plan: Mr. Willson is being followed at [place] [facility] by Dr. Carreno where he [...] AM EST Office Visit Orthopedic Surgery - [place] [address] 175 [facility] [address] [place] [phone] Norberto Arcos MD Left shoulder pain (Primary Dx) 07/14/2024 Telephone Internal Medicine - [place] 175 [facility] 200 [place] [phone] Lia Bae [place] Referral 06/30/2024 9:00 AM EST Office Visit Pulmonolgy - [place] 175 [facility] 200 [place] [phone] Felicia Sparrow MD Chronic asthmatic bronchitis (CMS/HCC) (Primary Dx); Elevated diaphragm 06/23/2024 9:48 AM EST - 06/23/2024 11:59 PM EST Hospital Encounter [facility] CT Scan [address] [place] [phone] of the chest; Lung nodules Discharge Disposition: Home or Self Care 06/09/2024 8:30 AM EST Consult Orthopedic Surgery - [place] 250 175 [facility] [address] [place] [phone] Norberto Arcos MD Impingement of right shoulder (Primary Dx); Shoulder pain 05/30/2024 8:45 AM EST Office Visit Pulmonolgy [facility] 175 [facility] 200 [place] [phone] Felicia Sparrow MD Chronic bronchitis, unspecified chronic bronchitis type (CMS/HCC) (Primary Dx); Chronic sinusitis, unspecified location; Abnormal CT of the chest; Lung nodules 05/27/2024 11:49 AM EST - 05/27/2024 11:59 PM EST Hospital Encounter [facility] [address] [place] [address] Dyspnea, unspecified type Discharge Disposition: Home or Self Care from Last 3 Months Immunizations Name Administration Dates Next Due DTaP (Infanrix) 6wks to less than 7yo 07/29/2012 Hepatitis A Adult (Havrix; V aqta) 19yo and older 08/10/2015 Hepatitis B (Uducwfo-J-Fxrlw , Recombivax HB-Adult) 19yo and older 02/20/2017,09/12/2016,08/15/2016 [...] lumbar disc HIV (human immunodeficiency virus infection) ([facility]) 01/04/2019 DX:HIV (human immunodeficien cy virus infection) ([facility]) Hypertension 01/04/2019 DX:Hypertension Spinal stenosis, lumbar 02/02/2019 [...] 08/23/2024 9:00 AM EDT Office Visit Gastroenterology [facility] [address] [phone] Alok Mccormack MD [address] [address] 09/28/2024 8:15 AM EDT Office Visit Internal Medicine [facility] [address] [phone] Gregg Todd MD [address] [address] 12/29/2024 8:45 AM EDT Office Visit Pulmonolgy - [place] 175 [facility] 200 [place] [phone] Felicia Sparrow MD 175 [facility] 200 [place] [address] Health Maintenance Due Date Last Done Comments [...] RIGHT Routine 06/09/2024 8:55 AM EST Pain UT ARTHROCENTESIS/ASPIRAT ION/INJECTION MAJOR JOINT/BURSA W/O U/S GUIDANCE [...] Signed Date: 06/30/2024 09:37 ET Workstation ID: [id number] Transcribed By: Self Edit Transcribed Date: 06/30/2024 09:30 ET Narrative 06/30/2024 9:37 AM EST INDICATION: Pulmonary nodule TECHNIQUE: CT scan of the chest obtained without contrast. Scanner: [employer] 128 slice VCT Dose reduction technique: ASIR [...] of the chest obtained without contrast. Scanner: [employer] 128 slice VCT Dose reduction technique: ASIR [...] Signed Date: 06/30/2024 09:37 ET Workstation ID: [id number] Transcribed By: Self Edit Transcribed Date: 06/30/2024 [...] MD IMG XR PROCEDURES Final Result * UT ARTHROCENTESIS/ASPIRATION/INJECTION MAJOR JOINT/BURSA W/O U/S GUIDANCE (06/09/2024 [...] of an acute chest process. POS - [id number] -------- FINAL REPORT -------- Dictated By: María Valderrama Dictated Date: 05/27/2024 18:36 ET Assigned Physician: María Valderrama Reviewed and Electronically Signed By: María Valderrama Signed Date: 05/27/2024 18:40 ET Workstation ID: [id number] Transcribed By: Self Edit Transcribed Date: 05/27/2024 [...] of an acute chest process. POS - [id number] -------- FINAL REPORT -------- Dictated By: María Valderrama Dictated Date: 05/27/2024 18:36 ET Assigned Physician: María Valderrama Reviewed and Electronically Signed By: María Valderrama Signed Date: 05/27/2024 18:40 ET Workstation ID: [id number] Transcribed By: Self Edit Transcribed Date: 05/27/2024 18:36 ET us Felicia Sparrow MD IMG XR PROCEDURES Final Result * Thyroid stimulating hormone with reflex to free t4 and free t3 (04/27/2024 9:41 AM EST) Pathologist [facility] TSH 1.94 0.40 - 4.00 mcIU/mL LAB CHEMISTRY METHOD 04/27/2024 11:56 AM EST [facility] Blood Venous blood specimen / Unknown Venipuncture / Unknown 04/27/2024 9:41 AM EST 04/27/2024 9:41 AM EST us Gregg Todd MD LAB BLOOD ORDERABLES Final Resul t [facility] [address] [place] [address], [place] [phone] * (ABNORMAL) Lipid panel with reflex to direct LDL (04/27/2024 9:41 AM EST) [facility] Cholesterol 206(H) 0 - 200 mg/dL LAB CHEMISTRY METHOD 04/27/2024 11:51 AM [facility] Triglycerides 107 0 - 150 mg/dL LAB CHEMISTRY METHOD 04/27/2024 11:51 AM EST [facility] HDL 64 >=40 mg/dL LAB CHEMISTRY METHOD 04/27/2024 11:51 AM [facility] LDL Calculated 121(H) 0 - 100 mg/dL LAB CHEMISTRY METHOD 04/27/2024 11:51 AM EST [facility] VLDL Cholesterol Yovany 21.4 mg/dL LAB CHEMISTRY METHOD 04/27/2024 11:51 AM [facility] Non HDL Chol. (LDL+VLDL) 142 <145 mg/dL LAB CHEMISTRY METHOD 04/27/2024 11:51 AM [facility] Chol/HDL Ratio 3.2 0.0 - 4.4 LAB CHEMISTRY METHOD 04/27/2024 11:51 AM [facility] Blood Venous blood specimen / Unknown Venipuncture / Unknown 04/27/2024 9:41 AM EST 04/27/2024 9:41 AM EST us Gregg Todd MD LAB BLOOD ORDERABLES Final Resul t [facility] [address] [place] [address], [place] [phone] * (ABNORMAL) CBC auto differential (04/27/2024 9:41 AM EST) WBC 6.9 4.8 - 10.8 K/mcL LAB HEMETOLOGY METHOD 04/27/2024 10:48 AM [facility] RBC 4.90 4.50 - 5.50 M/mcL LAB HEMETOLOGY METHOD 04/27/2024 10:48 AM [facility] Hemoglobin 14.6 13.5 - 17.5 g/dL LAB HEMETOLOGY METHOD 04/27/2024 10:48 AM [facility] Hematocrit 44.4 42.0 - 54.0 % LAB HEMETOLOGY METHOD 04/27/2024 10:48 AM [facility] MCV 90.4 79.0 - 98.0 FL LAB HEMETOLOGY METHOD 04/27/2024 10:48 AM [facility] MCH 29.7 27.0 - 32.0 pcg LAB HEMETOLOGY METHOD 04/27/2024 10:48 AM [facility] MCHC 32.9 32.0 - 37.0 g/dL LAB HEMETOLOGY METHOD 04/27/2024 10:48 AM [facility] RDW 13.5 11.0 - 15.0 % LAB HEMETOLOGY METHOD 04/27/2024 10:48 AM [facility] Platelets 269 130 - 400 K/mcL LAB HEMETOLOGY METHOD 04/27/2024 10:48 AM [facility] MPV 11.1(H) 7.0 - 11.0 FL LAB HEMETOLOGY METHOD 04/27/2024 10:48 AM [facility] NRBC 0.0 <1.0 % LAB HEMETOLOGY METHOD 04/27/2024 10:48 AM [facility] NRBC Absolute 0.00 <0.10 K/mcL LAB HEMETOLOGY METHOD 04/27/2024 10:48 AM [facility] Neutrophils Relative 63.1 % LAB HEMETOLOGY METHOD 04/27/2024 10:48 AM [facility] Lymphocytes Relative 24.7 % LAB HEMETOLOGY METHOD 04/27/2024 10:48 AM [facility] Monocytes Relative 9.3 % LAB HEMETOLOGY METHOD 04/27/2024 10:48 AM [facility] Eosinophils Relative 2.2 % LAB HEMETOLOGY METHOD 04/27/2024 10:48 AM [facility] Basophils Relative 0.4 % LAB HEMETOLOGY METHOD 04/27/2024 10:48 AM [facility] Immature Granulocytes Relative 0.3 % LAB HEMETOLOGY METHOD 04/27/2024 10:48 AM [facility] Neutrophils Absolute 4.36 1.50 - 7.00 K/mcL LAB HEMETOLOGY METHOD 04/27/2024 10:48 AM [facility] Lymphocytes Absolute 1.71 1.00 - 5.00 K/mcL LAB HEMETOLOGY METHOD 04/27/2024 10:48 AM [facility] Monocytes Absolute 0.64 0.20 - 1.00 K/mcL LAB HEMETOLOGY METHOD 04/27/2024 10:48 AM EST [facility] Eosinophils Absolute 0.15 0.00 - 0.50 K/[facility] LAB HEMETOLOGY METHOD 04/27/2024 10:48 AM EST [facility] Basophils Absolute 0.03 0.00 - 0.20 K/[facility] LAB HEMETOLOGY METHOD 04/27/2024 10:48 AM [facility] Immature Granulocytes Absolute 0.02 0.00 - 0.03 K/[facility] LAB HEMETOLOGY METHOD 04/27/2024 10:48 AM [facility] Blood Venous blood specimen / Unknown Venipuncture / Unknown 04/27/2024 9:41 AM EST 04/27/2024 9:41 AM EST us Gregg Todd MD LAB BLOOD ORDERABLES Final Resul t [facility] [address] [place] [address], [place] [phone] * (ABNORMAL) Comprehensive metabolic panel (04/27/2024 9:41 AM EST) Sodium 138 133 - 145 mmol/L LAB CHEMISTRY METHOD 04/27/2024 11:51 AM [facility] Potassium 4.8 3.5 - 5.5 mmol/L LAB CHEMISTRY METHOD 04/27/2024 11:51 AM [facility] Chloride 106 96 - 110 mmol/L LAB CHEMISTRY METHOD 04/27/2024 11:51 AM [facility] CO2 27 21 - 32 mmol/L LAB CHEMISTRY METHOD 04/27/2024 11:51 AM [facility] Anion Gap 5 3 - 11 LAB CHEMISTRY METHOD 04/27/2024 11:51 AM [facility] Glucose 99 70 - 100 mg/dL LAB CHEMISTRY METHOD 04/27/2024 11:51 AM [facility] BUN 22 5 - 25 mg/dL LAB CHEMISTRY METHOD 04/27/2024 11:51 AM [facility] Creatinine 0.99 0.70 - 1.30 mg/dL LAB CHEMISTRY METHOD 04/27/2024 11:51 AM [facility] eGFR 87 >=60 mL/min/1. 73m2 LAB CHEMISTRY METHOD 04/27/2024 11:51 AM [facility] Comment:Calculation based on the??Chronic Kidney Disease Epidemiology Collaboration (CKD-EPI) equation refit??without adjustment for race. BUN/Creatinine Ratio 22.2 LAB CHEMISTRY METHOD 04/27/2024 11:51 AM [facility] Calcium 9.4 8.5 - 10.5 mg/dL LAB CHEMISTRY METHOD 04/27/2024 11:51 AM [facility] AST (SGOT) 43(H) 10 - 42 unit/L LAB CHEMISTRY METHOD 04/27/2024 11:51 AM [facility] ALT (SGPT) 81(H) 10 - 60 unit/L LAB CHEMISTRY METHOD 04/27/2024 11:51 AM [facility] Alkaline Phosphatase 90 42 - 121 unit/L LAB CHEMISTRY METHOD 04/27/2024 11:51 AM [facility] Total Protein 6.9 6.0 - 8.0 g/dL LAB CHEMISTRY METHOD 04/27/2024 11:51 AM [facility] Albumin 4.2 3.2 - 5.0 g/dL LAB CHEMISTRY METHOD 04/27/2024 11:51 AM [facility] Total Bilirubin 0.7 0.0 - 1.4 mg/dL LAB CHEMISTRY METHOD 04/27/2024 11:51 AM [facility] Blood Venous blood specimen / Unknown Venipuncture / Unknown 04/27/2024 9:41 AM EST 04/27/2024 9:41 AM EST Gregg Todd MD LAB BLOOD ORDERABLES Final Resul t [facility] [address] [place] [address], [place] [phone] * Colonoscopy (09/22/2014) Colonoscopy Abstracted Anatomical Region Laterality Modality Other Historical Provider HEALTH MAINTENANCE Final Result from Last 3 Months or Most Recently Relevant to Health Maintenance Insurance [employer] [place] Care Teams Gardening Instructor Relationship Specialty Start Date End Date Gregg Todd MD 175 [facility] [address] [place] [address] PCP - General Internal Medicine 04/17/21
--- OUTSIDE RECORDS SUMMARY | 2024-07-28 10:13 | XMS_ITS | Encounter Summary ---
Author Organization [facility] Address [address] [place] [address] Care Team Providers Care Steward/Stewardess Economy Class Name Role Phone Gregg Todd MD Primary Care Provider [phone] Reason for Visit * Reason Comments Asthma Results Ct scan * Consultation (Routine) - Authorized Specialty Diagnoses / Procedures Referred By Contac t Referred To Contact Pulmonology Diagnoses N/A Procedures N/A Gregg Todd MD [address] [place] [address] Phone: tel: fax: Felicia Sparrow MD [address] [address] Phone: tel: fax: Referral ID Status Reason Start Date Expiration Date V isits Requested Visits Authorized [id number] Authorized 05/23/2024 05/23/2025 12 12 Encounter Details Date Type Department Care Team ([facility] st Contact Info) Description 06/30/2024 9:00 AM EST Office Visit Pulmonolgy - [place] [address] [address] Felicia Sparrow MD [address] [address] Chronic asthmatic bronchitis (CMS/HCC) (Primary Dx); Elevated [...] seen 05/30/2024. HISTORY OF PRESENT ILLNESS: Roni Wlilson is a 59 y.o. old, male h/o [...] opacity. Patient underwent a cardiac CT at [facility] on 10/18/22 which [...] Vaqta) 19yo and older 08/10/2015 Hepatitis B (Xrnacqf-K-Qdxly, Recombivax HB-Adult) 19yo and older 08/15/2016, 09/12/2016, [...] patient. This chart was generated by the [employer] EMR system and [employer] speech recognition software and may contain inherent [...] Upcoming Encounters Date Type Department Care Team ([facility] st Contact Info) Description 08/23/2024 9:00 AM EDT Office Visit Gastroenterology - [address] [phone] Alok Mccormack MD [address] [place] [address] 09/28/2024 8:15 AM EDT Office Visit Internal Medicine - [address] [phone] Gregg Todd MD [address] [place] [address] 12/29/2024 8:45 AM EDT Office Visit Pulmonolgy - [address] [phone] Felicia Sparrow MD [address] [place] [address] documented as of this encounter Visit Diagnoses Diagnosis Chronic asthmatic bronchitis (CMS/HCC)- Primary Chronic obstructive asthma, unspecified Elevated diaphragm Disorders of diaphragm documented in this encounter Care Teams Steward/Stewardess Economy Class Relationship Specialty Start Date End Date Gregg Todd MD [address] [address] PCP - General Internal Medicine 04/17/21 documented as of this encounter
--- OUTSIDE RECORDS SUMMARY | 2024-07-28 10:13 | XMS_ITS | Data Portability ---
Author Organization [place] - [facility] Address [address] [address] Care Team Providers Care Naphthol Soaping Machine Operator Name Role Phone HARIKA HOLLINS Primary Care [...] mcg (0.03 %) nasal spray 2024 025 [id number], [address] [place], [address], 07/11/2024 14:49:25 Patient TargetsNo targets recorded. Patient Instructions Encounter Date Encounter Id Patient Instructions Last Modified By Organization Details Last Modified Time 07/11/2024 [id number] Note patient with chronic nasal obstruction for at least 1 year. He has been using qzrd-hja-hbkyiaw decongestant preparations several times per day. Examination shows a septal deviation of the right side limiting endoscopy but no evidence of polyps. Suggest warm saline irrigations twice daily followed by ipratropium bromide 2 sprays each nostril 3 times daily. I will have him dilute the oxymetazoline or which ever xplg-bcm-fgkqxpm decongestant preparation he is using 50% every 3 days. He will message me via the portal 3 weeks and if persistent sx consider CT scan [email or web address] Not available 07/11/2024 14:50:09 Reason for Referral None Reported. Problems Name Problem SNOMED Code Status Onset Date Resolution Date Notes Provider Name and Address Organization Details Recorded Time Bilateral tinnitus 38433125552 02 Active 2021 Tinnitus, bilateral ; Note: Date Diagnosed : 02/03/2022 3:11 PM (H93.13) Not Available Pending sale to [facility] 4 02:53:58 Disorder of smell 658367200 Active 2021 Other disturban kris of smell and taste; Note: Date Diagnosed : 02/03/2022 3:11 PM (R43.8) Not Available Pending sale to [facility] 4 02:54:02 Disorder of taste 929552166 Active 2021 Other disturban kris of smell and taste; Note: Date Diagnosed : 02/03/2022 3:11 PM (R43.8) Not Available Pending sale to [facility] 4 02:54:02 Sensorine ural hearing loss of bilateral ears 367917364 Active 2021 Sensorine ural hearing loss, bilateral ; Note: Date Diagnosed : 02/03/2022 3:11 PM (H90.3) Not Available Pending sale to [facility] 4 02:54:01 Deviated nasal septum 749541421 Active 2024 RIC ALBARADO MD [address] [place] [address],[place] [address], [place], [phone] , [facility] - [facility] 5 14:49:05 Chronic rhinitis 67141627 Active 2024 RCI ALBARADO MD [address] [place] [address], [place], [address] , [facility] - [facility] [place] 5 14:49:12 Vasomotor rhinitis 2963907 Active 2024 RIC ALBARADO MD [address] [place] [address],[place] [address], [place], [address] , [facility] - [facility] [place] 5 14:49:16 Problem Notes None recorded. Procedures Surgical History Date Name Laterality Status Provider Name and Address Organization Details Recorded Time 5 JMSNasal/Sinus Endoscopy completed RIC CUTLER MD [address] [place] [address], [phone], [place] - [facility] 07/11/2024 14:48:02 Imaging Results None recorded. Procedure Notes None recorded. Medical Equipment None Reported. Medications Name Sig Start Date Stop Date Status Note LastModified by Organization Details LastModified Time fluconazo le 100 mg tablet TAKE 1 TABLET BY MOUTH EVERY DAY FOR 14 DAYS active Not Available Not Available No t Available methocarb alvarez 500 mg tablet 07/07 completed Medicati on ID: [id number] B rand Name: methocar bamol Se nd [...] mg tablet 07/07 completed Medicati on ID: [id number] B rand Name: meloxica m Send Method: [...] 325 mg tablet active Medicati on ID: [id number] B rand Name: hydrocod one-acet aminophe n [...] 10 mg tablet active Medicati on ID: [id number] B rand Name: hydroxyz ine HCl Send [...] bromide 21 mcg (0.03 %) nasal spray USE 2 SPRAYS IN EACH NOSTRIL 3 TIMES A DAY active Not Available Not Available No t Available naproxen 500 mg tablet TAKE 1 TABLET [...] Not Available Not Available No t Available Qvar RediHaler 80 mcg/actua tion HFA breath activated aerosol INHALE 2 PUFFS BY MOUTH 2 TIMES A DAY active Not Available Not [...] Updated DateTime 07/11/2024 177.8 cm 28 kg/m2 89715.51 g Lea Sierra [place] - [facility] 07/11/2024 14:38:46 Social History None recorded. Functional Status None recorded. Mental Status None recorded. Family History Nothing Reported. Medical History Condition Response Allergies/Hayfever N Heart Problems N Anxiety Y Tonsil Infections N Emphysema N Migraines N Thyroid Problems N Glaucoma N Depression Y COPD N Developmental Delay N Nasal or Sinus Problems Y Anemia N Immune System Disorder N Anesthesia Complications N Heart Attack (VT) N Other Skin Condition N Diabetes N Rhinitis N Bleeding Disorder N Food Allergy N Arthritis Y Hearing Loss Y Hyperlipidemia N Cancer N Stroke N Dementia N Nasal polyps Y Asthma N High Cholesterol Y Sleep Disorder Y GERD/Reflux Y Liver Disease N Headaches N Fibromyalgia N Hypertension Y Speech Delay N Kidney Disease N Past Encounters Encounter ID Performer Location Encounter Start Date Encounter Closed Date Diagnosis/Indication Diagnosis SNOMED-CT Code Diagnosis ICD10 Code Diagnosis Note [id number] RIC ALBARADO MD [facility] [address] [place] [address] 07/11/2024 14:12:51 07/11/2024 14:52:00 Deviated nasal septum 319771583 J34.2 Chronic rhinitis 8425476 6 J31.0 Bilateral tinnitus 79250 04754 102 H93.13 f/u with [facility] Concerns Section Related Observation LastModified by Organization Detai ls LastModified Time None Recorded Concern Status LastModified by Organization Details LastModified Time None Recorded Advance Directives Directive None Recorded Payers Encounter Date Sequence Insurance Name Policy Number Policy Gunn Covered Member ID Gunn Member ID Guarantor Name 07/11/2024 1 [facility] - MEDICARE PREFERRED (MEDICARE REPLACEMENT HMO) [place] Roni Willson [id number] Roni Willson 07/11/2024 2 [place] [facility] Roni Willson [id number] Roni Willson Notes Date Note Type Note [...] per day or more. RIC CUTLER MD [address] [place] [address], [phone], [facility] - [facility] 07/11/2024 14:51:18
--- OUTSIDE RECORDS SUMMARY | 2024-07-28 10:13 | XMS_ITS | Clinical Summary ---
Author Organization [facility] Address [address] [place] [address] Care Team Providers Care Kindergartner Name Role Phone Gregg Todd MD Primary [...] age to complete this topic Care Teams Kindergartner Relationship Specialty Start Date End Date Gregg Todd MD PCP - General Internal Medicine 06/29/23
--- OUTSIDE RECORDS SUMMARY | 2024-07-28 10:13 | XMS_ITS | Encounter Summary ---
Author Organization [facility] Address [address] [place] [address] Care Team Providers Care Nursing Home Assistant Administrator Name Role Phone Gregg Todd MD Primary Care Provider [phone] Reason for Visit * Reason Comments Pain Follow-up Encounter Details Date Type Department Care Team ([facility] st Contact Info) Description 07/25/2024 8:30 AM EST Office Visit Orthopedic Surgery - [place] 250 175 [facility] [address] [place] [phone] Norberto Arcos MD 175 [facility] [address] [place] [address] Left shoulder pain (Primary Dx) Social History [...] Roni Willson is a 59 y.o. male fyrnr-rvdg-hdqfevwq past medical history of lumbar stenosis status [...] 9:00 AM EDT Office Visit Gastroenterology - [place] [address] [phone] Alok Mccormack MD [address] [address] 09/28/2024 8:15 AM EDT Office Visit Internal Medicine - [place] [address] [phone] Gregg Todd MD [address] [address] 12/29/2024 8:45 AM EDT Office Visit Pulmonolgy - [place] [address] [phone] Felicia Sparrow MD 175 [facility] [address] [place] [address] documented as of this encounter Results * [...] region documented in this encounter Care Teams Nursing Home Assistant Administrator Relationship Specialty Start Date End Date Gregg Todd MD 175 [facility] [address] [place] [address] PCP - General Internal Medicine 04/17/21 documented as of this encounter
--- OUTSIDE RECORDS SUMMARY | 2024-07-28 10:13 | XMS_ITS | Encounter Summary ---
Author Organization [facility] Address [address] [place] [address] Care Team Providers Care Community Relations Specialist Name Role Phone Gregg Todd MD Primary Care Provider [phone] Reason for Visit * Reason Onset Date Comments Referral 07/14/2024 Encounter Details Date Type Department Care Team (Late st Contact Info) Description 07/14/2024 Telephone Internal Medicine - [place] [address] [facility] [address] [place] [phone] Lia Bae MA Referral Social History Tobacco [...] as of this encounter Progress Notes * Adrianna Frazier - 07/28/2024 8:43 AM EST ENT surgeons called and stated that this referral needs to be faxed to [phone] directly to thereferrals dept. * Zana Burnham MA - 07/20/2024 4:12 PM EST ENT Referral faxed as requested to [phone]. * Nathalie Mcconnell - 07/20/2024 2:29 PM [...] Received a fax from [facility] for a request for referral (P): [phone] (F): [phone] documented in this encounter Plan of Treatment Upcoming Encounters Date Type Department Care Team (Late st Contact Info) Description 08/23/2024 9:00 AM EDT Office Visit Gastroenterology - [address] [phone] Alok Mccormack MD [address] [address] 09/28/2024 8:15 AM EDT Office Visit Internal Medicine - [address] [phone] Gregg Todd MD [address] [address] 12/29/2024 8:45 AM EDT Office Visit Pulmonolgy - [address] [phone] Felicia Sparrow MD [address] [address] documented as of this encounter Visit Diagnoses Not on filedocumented in this encounter Care Teams Community Relations Specialist Relationship Specialty Start Date End Date Gregg Todd MD [address] [place] [id number] PCP - General Internal Medicine 04/17/21 documented as of this encounter
== END 2024-07-28 10:44 | disposition home or self-care (01) ==
LOC: HO.PMCPRC 09:42
PROVIDERS: PCP Internal Medicine; Visit Provider Internal Medicine
DX: M53.3 Sacrococcygeal disorders, not elsewhere classified (principal)
CPT/HCPCS: 27096

== ENCOUNTER 2024-08-24 09:33 | Outpatient (AMB) | payer MEDICARE, MEDICAID, SELFPAY ==
--- NOTE | 2024-08-24 09:37 | MHC.OFFVIS ---
Vital Signs 08/24/24 09:40 Height 5 ft 10 in Weight 198 lb BMI 28.4 BP 129/68 Blood Pressure Location Lt brachial Position Sitting Respiration 16 Pulse 56 Pulse Source Pulse Oximeter Pulse Oximetry (%) 96 Oxygen Delivery Method Room Air Intake Visit Reasons: s/p left theraputic SIJ + pill count Intake Note: Pt statews he last took vicodin 08/24/24 @ 7am Case Reviewer Required: No Allergies No Known Allergies Allergy (Verified 08/24/24 09:41) Medication List - Last Reconciled 08/24/24 by Loida Louie LPN albuterol sulfate 90 mcg/actuation 2 puffs inhalation Q6H PRN alprazolam 0.5 mg PO TID PRN ybteyoaux-ezefnlpn-xeeksfp ala 50-200-25 mg (Biktarvy) 1 tab PO DAILY celecoxib 100 mg PO BID PRN chlorhexidine gluconate 0.12% 15 mL PO BID doxycycline hyclate 100 mg PO DAILY ferrous sulfate 324 mg PO 3XW fluoxetine 20 mg PO DAILY fluticasone propionate 50 mcg/actuation 1 spray intranasal BID gabapentin 600 mg PO QID hydrocodone-acetaminophen 5-325 mg 1 tab PO Q4-6H PRN lidocaine 5% 1 patch topical DAILY 30 days meclizine 25 mg PO DAILY PRN mupirocin 2% topical DAILY naloxone 4 mg/actuation (Narcan) 4 mg intranasal Q2M PRN omeprazole 40 mg PO DAILY simvastatin 20 mg PO BEDTIME terbinafine HCl 250 mg PO DAILY zolpidem 5 mg PO BEDTIME PRN HPI HPI s/p left theraputic SIJ + pill count: Details: History of Present Illness The patient is a 59-year-old male presenting with chronic low back pain, post-lumbar surgery, 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 His sacroiliac joint injection offered temporary improvement, with early substantial relief diminishing to moderate residual discomfort exacerbated by physical activity. Despite prior lumbar surgery and recommendations for fusion, the patient experiences bilateral leg pain extending into the feet, occasionally burning. A resurgence of previously unresolved elevated liver enzymes is again noted, linked to recent laboratory tests. The patient's prior consult with Dr. Valdovinos discussed fusion with cage insertion ? deferred but may be reconsidered post-MRI to assess lumbar degeneration progression. Pain Description - Onset: Chronic, worsening post-activity - Quality: Aching, burning - Location: Low back, bilateral legs - Radiation: Into feet - Exacerbating factors: Physical activity, standing - Relieving factors: Rest with feet elevated - Functional interference: Limits outdoor activities like yard work Physical Exam Results - Tests: Recent blood work indicating elevated liver enzymes - Imaging: Previous MRI (latest in 2021) Pain Management - Affect: Pain affecting physical activity levels but mentally stable with activity restriction. - Analgesia: Sacroiliac joint injection provided temporary relief. - Adverse Effects: None reported from current medications. - Activities of Daily Living: Limited outdoor activity. - Aberrant Drug-Related Behaviors: None reported; pill count consistent with prescribed usage. Physical Exam Vital Signs: Last Vital Signs Pulse 56 08/24/24 09:40 Resp 16 08/24/24 09:40 BP 129/68 08/24/24 09:40 Pulse Ox 96 08/24/24 09:40 Oxygen Delivery Method Room Air 08/24/24 09:40 BMI result Body Mass Index 28.4 Assessment & Plan Assessment & Plan (1) Stenosis, spinal, lumbar: Code(s): M48.061 - Spinal stenosis, lumbar region without neurogenic claudication Category: Medical Plan Plan A follow-up MRI will be scheduled to assess lumbar degeneration and foraminal stenosis. The patient will be referred to Dr. Valdovinos for further evaluation of surgical options based on imaging results. Current pain medications to continue with liver function monitored, awaiting ultrasound clearance to explore underlying causes of enzyme elevation. Neck and back pain management to proceed post-assessment discussions with the neurosurgery team. Patient was informed and verbally consented to the use of an ambient scribe for clinic note documentation during this visit. Discussion Notes I discussed the necessity of obtaining an updated MRI to further delve into lumbar spine status. Post-MRI, we intend to revisit fusion surgery with Dr. Valdovinos if indicated, ensuring clarity on the risks versus benefits and the surgical logistics involved. Options for intervention will be thoroughly evaluated based on the MRI findings, ensuring a minimally invasive approach is considered. Liver enzyme elevation was noted, informed on potential ultrasound pending insurance consent. All proposals and next steps agreed upon by the patient. Patient Instructions - Schedule and undergo repeat MRI as soon as possible. - Continue using current pain medication as prescribed. - Monitor symptoms and report any new changes. - Follow up on liver ultrasound once scheduled. - Rest as needed, especially when experiencing exacerbated pain. Orders: Orders MR lumbar spine w con 08/24/24 M48.061 - Spinal stenosis, lumbar region without neurogenic claudication, M54.16 - Radiculopathy, lumbar region Referrals Neurosurgery Referral M48.061 - Spinal stenosis, lumbar region without neurogenic claudication Medications: Refilled hydrocodone-acetaminophen 5-325 mg Partial Fill upon patient request. 1 tab PO Q4-6H PRN 180 tabs 0RF pain Coding Level of Care Code Est Pt Level 4 (01131) Diagnoses Stenosis, spinal, lumbar M48.061
[2024-08-24 09:40] VITALS: BP 129/68; PULSE 56; RESP 16; O2SAT 96; BMI 28.4
--- OUTSIDE RECORDS SUMMARY | 2024-08-24 10:28 | XMS_ITS | Clinical Summary ---
Author Organization [facility] Address [address] [place] [address] Care Team Providers Care Nuclear Station Operator Name Role Phone Gregg Todd MD [...] age to complete this topic Care Teams Nuclear Station Operator Relationship Specialty Start Date End Date Gregg Todd MD PCP - General Internal Medicine 06/29/23
--- OUTSIDE RECORDS SUMMARY | 2024-08-24 10:28 | XMS_ITS | Clinical Summary ---
Author Organization LL 175 [facility] Address [address] [place] [address] Phone Care Team Providers Care Undergraduate Advisor Name Role Phone Gregg Todd MD Primary Care Provider [phone] Allergies No known active allergies Medications terbinafine [...] (LIDODERM) 5 % patch 02/06/20 22 Active mupirocin (BACTROBAN) 2 % ointment APPLY [...] breath. 1 each 05/30/20 24 025 Active fluticasone furoate (Arnuity Ellipta) 100 mcg/actuation [...] DAY. 90 capsule 1 07/25/19 25 Active meclizine (ANTIVERT) 25 mg tablet Take 1 tablet (25 mg total) by mouth 3 (three) times a day if needed for dizziness. 90 tablet 1 08/24/19 25 Active mirtazapine (REMERON) 15 mg tablet TAKE 1 TABLET BY MOUTH EVERY DAY AT NIGHT 12/03/19 24 025 Discontinued mirtazapine (REMERON) 30 mg tablet Take 1 Tablet by mouth daily. 08/21/19 23 025 Discontinued meclizine (ANTIVERT) 25 mg tablet TAKE 1 TABLET BY MOUTH 3 TIMES DAILY NEEDED FOR VERTIGO 90 tablet 1 06/30/19 25 025 Discontinued Active Problems Problem Noted Date Diagnosed Date LFT elevation 08/23/2024 Shortness of breath on exertion 08/13/2022 Overview [...] Plan: Mr. Willson is being followed at [facility] by Dr. Carreno where he [...] Encounters Date Type Department Care Team Description 08/23/2024 9:00 AM EDT Office Visit Gastroenterology - [place] [address] [phone] Alok Mccormack MD Hepatic hemangioma (Primary Dx); LFT elevation 07/25/2024 8:30 AM EST Office Visit Orthopedic Surgery - [place] 250 175 [facility] [address] [place] [phone] Norberto Arcos MD Left shoulder pain (Primary Dx) 07/14/2024 Telephone Internal Medicine - [place] [address] [phone] Lia Bae [place] Referral 06/30/2024 9:00 AM EST Office Visit Pulmonolgy - [place] 175 [facility] [address] [place] [phone] Felicia Sparrow MD Chronic asthmatic bronchitis (CMS/HCC) (Primary Dx); Elevated diaphragm 06/23/2024 9:48 AM EST - 06/23/2024 11:59 PM EST Hospital Encounter [facility] CT Scan [address] [place] [phone] of the chest; Lung nodules Discharge Disposition: Home or Self Care 06/09/2024 8:30 AM EST Consult Orthopedic Surgery - [place] 250 175 [facility] [address] [place] [phone] Norberto Arcos MD Impingement of right shoulder (Primary Dx); Shoulder pain 05/30/2024 8:45 AM EST Office Visit Pulmonolgy [facility] 175 [facility] [address] [place] [phone] Felicia Sparrow MD Chronic bronchitis, unspecified chronic bronchitis type (CMS/HCC) (Primary Dx); Chronic sinusitis, unspecified location; Abnormal CT of the chest; Lung nodules 05/27/2024 11:49 AM EST - 05/27/2024 11:59 PM EST Hospital Encounter [facility] [address] [place] [address] Dyspnea, unspecified type Discharge Disposition: Home or Self Care from Last 3 Months Immunizations Name Administration Dates Next Due DTaP (Infanrix) 6wks to less than 7yo 07/29/2012 Hepatitis A Adult (Havrix; V aqta) 19yo and older 08/10/2015 Hepatitis B (Krtvngx-N-Lijev , Recombivax HB-Adult) 19yo and older 02/20/2017,09/12/2016,08/15/2016 [...] lumbar disc HIV (human immunodeficiency virus infection) ([facility]) 01/04/2019 DX:HIV (human immunodeficien cy virus infection) ([facility]) Hypertension 01/04/2019 DX:Hypertension Spinal stenosis, lumbar [...] Sign Reading Time Taken Comments Blood Pressure 112/64 08/23/2024 8:42 AM EDT Pulse 72 08/23/2024 8:42 AM EDT Temperature 36.2 ??C (97.1 ??F) 06/30/2024 8:59 AM ES T Respiratory Rate 20 06/30/2024 8:59 AM EST Oxygen Saturation 100% 06/30/2024 8:59 AM EST Inhaled Oxygen Concentration - - Weight 89.4 kg (197 lb) 08/23/2024 8:42 AM EDT Height 177.8 cm (5' 10 ) 08/23/2024 8:42 AM EDT Body Mass Index 28.27 08/23/2024 8:42 AM EDT Plan of Treatment Upcoming Encounters Date Type Department Care Team (Late st Contact Info) Description 09/28/2024 8:15 AM EDT Office Visit Internal Medicine [facility] [address] [phone] Gregg Todd MD [address] [address] 12/29/2024 8:45 AM EDT Office Visit Pulmonolgy [address] [phone] Felicia Sparrow MD [address] [phone] Health Maintenance Due Date Last Done Comments [...] series) 11/15/2020 10/18/2020, 09/20/2020 Depression Screening 05/24/2022 Medicare Annual Wellness Visit 05/24/2022 Social Influencers of Health Screening 05/24/2022 Influenza Vaccine (#1) 2024 , 03/20/2020 RSV Immunization Patients 60 + Years Old (1 - Risk 60-74 years 1-dose series) 2024 Colorectal Cancer Screening: Colonoscopy 09/22/2024 09/22/2014 Hypertension/CHF/CAD Annual BMP Blood Test 08/23/2025 08/23/2024, 04/27/2024, 09/29/2023 DTaP,Tdap,and Td Vaccines (3 - Td or Tdap) 10/31/2027 10/30/2017, 07/29/2012 Cholesterol Screening (Lipid Panel) 08/23/2029 08/23/2024, 04/27/2024, 09/29/2023 Hepatitis B Vaccines Completed 02/20/2017, 09/12/2016, 08/15/2016 Zoster Vaccines Completed 06/16/2019, 01/19/2019 Hepatitis C Screening Completed 08/23/2024 HIB Vaccines Aged Out No longer eligi [...] Procedure Name Priority Date/Time Associated Diagnosis Comments CBC WITH AUTO DIFFERENTIAL Routine 08/23/2024 9:33 AM EDT Elevated liver function tests Human immunodeficiency virus (HIV) disease (CMS/HCC) Obesity, unspecified LIPASE Routine 08/23/2024 9:33 AM EDT Elevated liver function tests Human immunodeficiency virus (HIV) disease (CMS/HCC) Obesity, unspecified THYROID STIMULATING HORMONE Routine 08/23/2024 9:33 AM EDT Elevated liver function tests Human immunodeficiency virus (HIV) disease (CMS/HCC) Obesity, unspecified Abnormal results of thyroid function studies AMYLASE Routine 08/23/2024 9:33 AM EDT Elevated liver function tests Human immunodeficiency virus (HIV) disease (CMS/HCC) Obesity, unspecified LIPID PANEL WITH REFLEX TO DIRECT LDL Routine 08/23/2024 9:33 AM EDT Elevated liver function tests Human immunodeficiency virus (HIV) disease (CMS/HCC) Obesity, unspecified COMPREHENSIVE METABOLIC PANEL Routine 08/23/2024 9:33 AM EDT Elevated liver function tests Human immunodeficiency virus (HIV) disease (CMS/HCC) Obesity, unspecified HEPATITIS B SURFACE ANTIGEN WITH CONFIRMATION Routine 08/23/2024 9:33 AM EDT Elevated liver function tests Human immunodeficiency virus (HIV) disease (CMS/HCC) Obesity, unspecified TREPONEMA PALLIDUM ANTIBODY WITH REFLEX TO RPR AND PARTICLE AGGLUTINATION Routine 08/23/2024 9:33 AM EDT Elevated liver function tests Human immunodeficiency virus (HIV) disease (CMS/HCC) Obesity, unspecified HIV 1 MOLECULAR STUDY QUANTITATIVE Routine 08/23/2024 9:33 AM EDT Elevated liver function tests Human immunodeficiency virus (HIV) disease (CMS/HCC) Obesity, unspecified CBC AND DIFFERENTIAL Routine 08/23/2024 9:33 AM EDT Elevated liver function tests Human immunodeficiency virus (HIV) disease (CMS/HCC) Obesity, unspecified HEPATITIS PANEL, ACUTE WITH REFLEX TO CONFIRMATION Routine 08/23/2024 9:33 AM EDT Elevated liver function tests IRON AND TIBC Routine 08/23/2024 9:33 AM EDT Elevated liver function tests XR SHOULDER 2+ VIEWS LEFT Routine 07/25/2024 9:10 AM EST Left shoulder pain CT CHEST WO CONTRAST Routine 06/23/2024 10:[address] of the chest Lung nodules XR SHOULDER 2+ VIEWS RIGHT Routine 06/09/2024 8:55 AM EST Pain [place] ARTHROCENTESIS/ASPIR ATION/INJECTION MAJOR JOINT/BURSA W/O U/S GUIDANCE Routine 06/09/2024 8:30 AM EST Shoulder pain XR CHEST 2 VIEWS Routine 05/27/2024 11:5 6 AM EST Dyspnea, unspecified type HM COLONOSCOPY Routine 09/22/2014 from Last 3 Months or Most Recently Relevant to Health Maintenance Results * Hepatitis B surface antigen with reflex to confirmation (08/23/2024 9:33 AM EDT) Hepatitis B Surface Ag Negative Negative LAB CHEMISTRY METHOD 08/23/2024 11:[address] [facility] Blood Venous blood specimen / Unknown Venipuncture / Unknown 08/23/2024 9:33 AM EDT 08/23/2024 10:[address] [facility] - 08/23/2024 11:48 AM EDT Over the counter supplements containing high doses of biotin may interfere with this assay. ??If interference is suspected, patients shoud be retested after refraining from biotin supplements for 72 hours. Юлия Angel MD LAB BLOOD ORDERABLES Una l Result Performing Organization Address [facility]/ZIP Co de Phone Number [facility] [address] [place] [address], [place] [phone] * Treponema pallidum antibody with reflex to RPR and particle agglutination (08/23/2024 9:33 AM EDT) [facility] T. Pallidum Antibodies Negative Negative LAB CHEMISTRY METHOD 08/23/2024 11:[address] [facility] Blood Venous blood specimen / Unknown Venipuncture / Unknown 08/23/2024 9:33 AM EDT 08/23/2024 10:35 AM EDT Юлия Angel MD LAB BLOOD ORDERABLES Una l Result Performing Organization Address [facility] Co de Phone Number [facility] [address] [place] [address], [place] [phone] * (ABNORMAL) Lipid panel with reflex to direct LDL (08/23/2024 9:33 AM EDT) [facility] Cholesterol 210(H) 0 - 200 mg/dL LAB CHEMISTRY METHOD 08/23/2024 11:[address] [facility] Triglycerides 154(H) 0 - 150 mg/dL LAB CHEMISTRY METHOD 08/23/2024 11:[address] [facility] HDL 58 >=40 mg/dL LAB CHEMISTRY METHOD 08/23/2024 11:[address] [facility] LDL Calculated 121(H) 0 - 100 mg/dL LAB CHEMISTRY METHOD 08/23/2024 11:[address] [facility] VLDL Cholesterol Yovany 30.8 mg/dL LAB CHEMISTRY METHOD 08/23/2024 11:[address] [facility] Non HDL Chol. (LDL+VLDL) 152(H) <145 mg/dL LAB CHEMISTRY METHOD 08/23/2024 11:[address] [facility] Chol/HDL Ratio 3.6 0.0 - 4.4 LAB CHEMISTRY METHOD 08/23/2024 11:[address] [facility] Blood Venous blood specimen / Unknown Venipuncture / Unknown 08/23/2024 9:33 AM EDT 08/23/2024 10:35 AM EDT Юлия Angel MD LAB BLOOD ORDERABLES Una l Result [facility] [address] [place] [address], [place] [phone] * Hepatitis panel, acute with reflex to confirmation (08/23/2024 9:33 AM EDT) Hepatitis B Surface Ag Negative Negative LAB CHEMISTRY METHOD 08/23/2024 12:[address] [facility] Hepatitis A Antibody IgM Negative Negative LAB CHEMISTRY METHOD 08/23/2024 12:[address] [facility] Hep B Core IgM Negative Negative LAB CHEMISTRY METHOD 08/23/2024 12:[address] [facility] Hepatitis C Antibody Negative Negative LAB CHEMISTRY METHOD 08/23/2024 12:[address] [facility] Blood Venous blood specimen / Unknown Venipuncture / Unknown 08/23/2024 9:33 AM EDT 08/23/2024 10:35 AM EDT Alok Mccormack MD LAB BLOOD ORDERABLES Final Resul t Performing Organization Address [facility]/ZIP Co de Phone Number [facility] [address] [place] [address], [place] [phone] * CBC auto differential (08/23/2024 9:33 AM EDT) WBC 5.7 4.8 - 10.8 K/mcL LAB HEMETOLOGY METHOD 08/23/2024 11:06 AM [facility] RBC 4.90 4.50 - 5.50 M/mcL LAB HEMETOLOGY METHOD 08/23/2024 11:06 AM [facility] Hemoglobin 14.8 13.5 - 17.5 g/dL LAB HEMETOLOGY METHOD 08/23/2024 11:06 AM [facility] Hematocrit 44.7 42.0 - 54.0 % LAB HEMETOLOGY METHOD 08/23/2024 11:06 AM [facility] MCV 92.2 79.0 - 98.0 FL LAB HEMETOLOGY METHOD 08/23/2024 11:06 AM [facility] MCH 30.5 27.0 - 32.0 pcg LAB HEMETOLOGY METHOD 08/23/2024 11:06 AM [facility] MCHC 33.1 32.0 - 37.0 g/dL LAB HEMETOLOGY METHOD 08/23/2024 11:06 AM [facility] RDW 13.4 11.0 - 15.0 % LAB HEMETOLOGY METHOD 08/23/2024 11:06 AM [facility] Platelets 222 130 - 400 K/mcL LAB HEMETOLOGY METHOD 08/23/2024 11:06 AM [facility] MPV 10.9 7.0 - 11.0 FL LAB HEMETOLOGY METHOD 08/23/2024 11:06 AM [facility] NRBC 0.0 <1.0 % LAB HEMETOLOGY METHOD 08/23/2024 11:06 AM [facility] NRBC Absolute 0.00 <0.10 K/mcL LAB HEMETOLOGY METHOD 08/23/2024 11:06 AM [facility] Neutrophils Relative 63.0 % LAB HEMETOLOGY METHOD 08/23/2024 11:06 AM [facility] Lymphocytes Relative 26.1 % LAB HEMETOLOGY METHOD 08/23/2024 11:06 AM [facility] Monocytes Relative 7.5 % LAB HEMETOLOGY METHOD 08/23/2024 11:06 AM [facility] Eosinophils Relative 2.4 % LAB HEMETOLOGY METHOD 08/23/2024 11:06 AM [facility] Basophils Relative 0.5 % LAB HEMETOLOGY METHOD 08/23/2024 11:06 AM [facility] Immature Granulocytes Relative 0.5 % LAB HEMETOLOGY METHOD 08/23/2024 11:06 AM [facility] Neutrophils Absolute 3.61 1.50 - 7.00 K/mcL LAB HEMETOLOGY METHOD 08/23/2024 11:06 AM [facility] Lymphocytes Absolute 1.50 1.00 - 5.00 K/mcL LAB HEMETOLOGY METHOD 08/23/2024 11:06 AM [facility] Monocytes Absolute 0.43 0.20 - 1.00 K/mcL LAB HEMETOLOGY METHOD 08/23/2024 11:06 AM [facility] Eosinophils Absolute 0.14 0.00 - 0.50 K/mcL LAB HEMETOLOGY METHOD 08/23/2024 11:06 AM [facility] Basophils Absolute 0.03 0.00 - 0.20 K/mcL LAB HEMETOLOGY METHOD 08/23/2024 11:06 AM [facility] Immature Granulocytes Absolute 0.03 0.00 - 0.03 K/mcL LAB HEMETOLOGY METHOD 08/23/2024 11:06 AM [facility] Blood Venous blood specimen / Unknown Venipuncture / Unknown 08/23/2024 9:33 AM EDT 08/23/2024 10:40 AM EDT Юлия Angel MD LAB BLOOD ORDERABLES Una l Result [facility] [address] [place] [address], [place] [phone] * Iron and TIBC (08/23/2024 9:33 AM EDT) [facility] Iron 95 50 - 160 mcg/dL LAB CHEMISTRY METHOD 08/23/2024 11:[address] [facility] TIBC 296 250 - 450 mcg/dL LAB CHEMISTRY METHOD 08/23/2024 11:[address] [facility] Iron Saturation 32 20 - 50 % LAB CHEMISTRY METHOD 08/23/2024 11:[address] [facility] Blood Venous blood specimen / Unknown Venipuncture / Unknown 08/23/2024 9:33 AM EDT 08/23/2024 10:35 AM EDT Alok Mccormack MD LAB BLOOD ORDERABLES Maxine Resul t Performing Organization Address [facility]/ZIP Co de Phone Number [facility] [address] [place] [address], [place] [phone] * (ABNORMAL) HIV 1 molecular study quantitative (08/23/2024 9:33 AM EDT) [facility] HIV-1 RNA Interpretation Detected (A) Not Detected LAB MOLECULAR DIAGNOSTICS METHOD 08/23/2024 3:[address] [facility] HIV-1 RNA Copies <20 <20 copies/mL LAB MOLECULAR DIAGNOSTICS METHOD 08/23/2024 3:[address] [facility] Comment:HIV RNA detected but below the limit of quantitation. Unable to report quantitative results <20 copies/mL. HIV-1 RNA Log <1.30 <1.30 Log 10 copies/mL LAB MOLECULAR DIAGNOSTICS METHOD 08/23/2024 3:[address] [facility] Blood Venous blood specimen / Unknown Venipuncture / Unknown 08/23/2024 9:33 AM EDT 08/23/2024 10:42 AM EDT Юлия Angel MD LAB BLOOD ORDERABLES Una l Result Performing Organization Address [facility] Co de Phone Number [facility] [address] [place] [address], [place] [phone] * Thyroid stimulating hormone (08/23/2024 9:33 AM EDT) Pathologist [facility] TSH 2.20 0.40 - 4.00 mcIU/mL LAB CHEMISTRY METHOD 08/23/2024 11:[address] [facility] Blood Venous blood specimen / Unknown Venipuncture / Unknown 08/23/2024 9:33 AM EDT 08/23/2024 10:35 AM EDT Юлия Angel MD LAB BLOOD ORDERABLES Nua l Result Performing Organization Address [facility] de Phone Number [facility] [address] [place] [address], [place] [phone] * (ABNORMAL) Lipase (08/23/2024 9:33 AM EDT) Pathologist [facility] Lipase 411(H) 13 - 75 unit/L LAB CHEMISTRY METHOD 08/23/2024 11:[address] [facility] Blood Venous blood specimen / Unknown Venipuncture / Unknown 08/23/2024 9:33 AM EDT 08/23/2024 10:35 AM EDT Юлия Angel MD LAB BLOOD ORDERABLES Una l Result Performing Organization Address City/[facility]/ZIP Co de Phone Number [facility] [address] [place] [address], [place] [phone] * (ABNORMAL) Amylase (08/23/2024 9:33 AM EDT) Pathologist [facility] Amylase 211(H) 25 - 115 unit/L LAB CHEMISTRY METHOD 08/23/2024 11:[address] [facility] Blood Venous blood specimen / Unknown Venipuncture / Unknown 08/23/2024 9:33 AM EDT 08/23/2024 10:35 AM EDT Юлия Angel MD LAB BLOOD ORDERABLES Uan tovar Result [facility] [address] [place] [address], [place] [phone] * Comprehensive metabolic panel (08/23/2024 9:33 AM EDT) [facility] Sodium 139 133 - 145 mmol/L LAB CHEMISTRY METHOD 08/23/2024 12:05 PM [facility] Potassium 4.9 3.5 - 5.5 mmol/L LAB CHEMISTRY METHOD 08/23/2024 12:05 PM [facility] Chloride 106 96 - 110 mmol/L LAB CHEMISTRY METHOD 08/23/2024 12:05 PM [facility] CO2 29 21 - 32 mmol/L LAB CHEMISTRY METHOD 08/23/2024 12:05 PM [facility] Anion Gap 4 3 - 11 LAB CHEMISTRY METHOD 08/23/2024 12:05 PM [facility] Glucose 92 70 - 100 mg/dL LAB CHEMISTRY METHOD 08/23/2024 12:05 PM [facility] BUN 20 5 - 25 mg/dL LAB CHEMISTRY METHOD 08/23/2024 12:05 PM [facility] Creatinine 1.19 0.70 - 1.30 mg/dL LAB CHEMISTRY METHOD 08/23/2024 12:05 PM [facility] eGFR 70 >=60 mL/min/1. 73m2 LAB CHEMISTRY METHOD 08/23/2024 12:05 PM [facility] Comment:Calculation based on the??Chronic Kidney Disease Epidemiology Collaboration (CKD-EPI) equation refit??without adjustment for race. BUN/Creatinine Ratio 16.8 LAB CHEMISTRY METHOD 08/23/2024 12:05 PM [facility] Calcium 9.2 8.5 - 10.5 mg/dL LAB CHEMISTRY METHOD 08/23/2024 12:05 PM [facility] AST (SGOT) 13 10 - 42 unit/L LAB CHEMISTRY METHOD 08/23/2024 12:05 PM [facility] ALT (SGPT) 46 10 - 60 unit/L LAB CHEMISTRY METHOD 08/23/2024 12:05 PM [facility] Alkaline Phosphatase 96 42 - 121 unit/L LAB CHEMISTRY METHOD 08/23/2024 12:05 PM [facility] Total Protein 7.0 6.0 - 8.0 g/dL LAB CHEMISTRY METHOD 08/23/2024 12:05 PM [facility] Albumin 3.8 3.2 - 5.0 g/dL LAB CHEMISTRY METHOD 08/23/2024 12:05 PM [facility] Total Bilirubin 0.7 0.0 - 1.4 mg/dL LAB CHEMISTRY METHOD 08/23/2024 12:05 PM [facility] Blood Venous blood specimen / Unknown Venipuncture / Unknown 08/23/2024 9:33 AM EDT 08/23/2024 10:35 AM EDT us Юлия Angel MD LAB BLOOD ORDERABLES Una tovar Result [facility] [address] [place] [address], * XR Shoulder 2+ Views Left (07/25/2024 [...] Signed Date: 06/30/2024 09:37 ET Workstation ID: [id number] Transcribed By: Self Edit Transcribed Date: 06/30/2024 09:30 ET Narrative 06/30/2024 9:37 AM EST INDICATION: Pulmonary nodule TECHNIQUE: CT scan of the chest obtained without contrast. Scanner: [employer] 128 slice VCT Dose reduction technique: ASIR [...] of the chest obtained without contrast. Scanner: [employer] 128 slice VCT Dose reduction technique: ASIR [...] Signed Date: 06/30/2024 09:37 ET Workstation ID: [id number] Transcribed By: Self Edit Transcribed Date: 06/30/2024 09:30 ET Felicia Sparrow MD IMG CT PROCEDURES Final Result * XR Shoulder [...] abnormalities Norberto Arcos MD IMG XR PROCEDURES Final Result * [place] ARTHROCENTESIS/ASPIRATION/INJECTION MAJOR JOINT/BURSA W/O U/S GUIDANCE (06/09/2024 [...] of an acute chest process. POS - [id number] -------- FINAL REPORT -------- Dictated By: María Valderrama Dictated Date: 05/27/2024 18:36 ET Assigned Physician: María Valderrama Reviewed and Electronically Signed By: María Valderrama Signed Date: 05/27/2024 18:40 ET Workstation ID: [id number] Transcribed By: Self Edit Transcribed Date: 05/27/2024 [...] of an acute chest process. POS - [id number] -------- FINAL REPORT -------- Dictated By: María Valderrama Dictated Date: 05/27/2024 18:36 ET Assigned Physician: María Valderrama Reviewed and Electronically Signed By: María Valderrama Signed Date: 05/27/2024 18:40 ET Workstation ID: [id number] Transcribed By: Self Edit Transcribed Date: 05/27/2024 18:36 ET Felicia Sparrow MD IMG XR PROCEDURES Final Result * Colonoscopy (09/22/2014) Colonoscopy Abstracted Anatomical Region Laterality Modality Other us Historical Provider HEALTH MAINTENANCE Final Result from Last 3 Months or Most Recently Relevant to Health Maintenance Insurance [facility] MEDICARE ADVANTAGE MEDICAID - [place] Care Teams Undergraduate Advisor Relationship Specialty Start Date End Date Gregg Todd MD [address] [facility] [address] [place] [address] PCP - General Internal Medicine 04/17/21
--- OUTSIDE RECORDS SUMMARY | 2024-08-24 10:28 | XMS_ITS | Data Portability ---
Author Organization [place] - [facility], Allergy Address [address] [address] Care Team Providers Care Piping Blocker Name Role Phone HARIKA HOLLINS Primary Care [...] mcg (0.03 %) nasal spray 2024 025 [email or web address] 32 [facility] #[id number], [address] [place], [address], 08/01/2024 12:14:50 Patient TargetsNo targets recorded. Patient Instructions Encounter Date Encounter Id Patient Instructions Last Modified By Organization Details Last Modified Time 07/11/2024 [id number] Note patient with chronic nasal obstruction for at least 1 year. He has been using eqnb-uak-zcuenmi decongestant preparations several times per day. Examination shows a septal deviation of the right side limiting endoscopy but no evidence of polyps. Suggest warm saline irrigations twice daily followed by ipratropium bromide 2 sprays each nostril 3 times daily. I will have him dilute the oxymetazoline or which ever yzmq-lua-bxqqcoc decongestant preparation he is using 50% every 3 days. He will message me via the portal 3 weeks and if persistent sx consider CT scan [email or web address] Not available 07/11/2024 14:50:09 Reason for Referral None Reported. Results Created Date Observation Date Name Description Value Unit Range Abnormal Flag Note LastModifiedBy Organization Detail LastModifiedTime 08/17/1908/15/2024 CT, maxil lofac ial, w/o contr ast No observ ation record ed. SATHISH [facility] [address] [facility] [address], [place], [address], 08/17/2024 20:00:18 Result Notes None recorded. Problems Name Problem SNOMED Code Status Onset Date Resolution Date Notes Provider Name and Address Organization Details Recorded Time Bilateral tinnitus 18509957394 02 Active 2021 Tinnitus, bilateral ; Note: Date Diagnosed : 02/03/2022 3:11 PM (H93.13) Not Available [facility] 4 02:53:58 Disorder of smell 461102851 Active 2021 Other disturban kris of smell and taste; Note: Date Diagnosed : 02/03/2022 3:11 PM (R43.8) Not Available [facility] 4 02:54:02 Disorder of taste 093397102 Active 2021 Other disturban kris of smell and taste; Note: Date Diagnosed : 02/03/2022 3:11 PM (R43.8) Not Available [facility] 4 02:54:02 Sensorine ural hearing loss of bilateral ears 654596463 Active 2021 Sensorine ural hearing loss, bilateral ; Note: Date Diagnosed : 02/03/2022 3:11 PM (H90.3) Not Available [facility] 4 02:54:01 Deviated nasal septum 807512403 Active 2024 RIC ALBARADO MD 100 [facility],[place] [address], [place], [address] , [place] [facility] 5 14:49:05 Chronic rhinitis 37170893 Active 2024 RIC ALBARADO MD 100 [facility] 100, [place], [address] , [place] - [facility] [place] 5 14:49:12 Vasomotor rhinitis 9642275 Active 2024 RIC ALBARADO MD 100 [facility],[place] [address], [place], [address] , [facility] - [facility] [place] 5 14:49:16 Chronic sinusitis 49821859 Active 2024 RIC ALBARADO MD 100 [facility],[place] [address], [place], [address] , [facility] - [facility] [place] 5 09:02:12 Problem Notes None recorded. Procedures Surgical History Date Name Laterality Status Provider Name and Address Organization Details Recorded Time JMSNasal/Sinus Endoscopy completed RIC CUTLER MD [address] [facility],[place] [address], [place], [address], [facility] - [facility] [place] 07/11/2024 14:48:02 Imaging Results Imaging Date Name Status LastModified by [facility] Details LastModified Time 08/15/2024 CT, maxillofacial , w/o contrast completed SATHISH [facility] [address] [facility] [address], [place], [address], 08/17/2024 20:00:18 Procedure Notes None recorded. Medical Equipment None Reported. Medications Name Sig Start Date Stop Date Status Note LastModified by Organization Details LastModified Time fluconazo le 100 mg tablet TAKE 1 TABLET BY MOUTH EVERY DAY FOR 14 DAYS active Not Available Not Available No t Available methocarb alvarez 500 mg tablet 07/07 completed Medicati on ID: [id number] B rand Name: methocar bamol Se nd [...] mg tablet 07/07 completed Medicati on ID: [id number] B rand Name: meloxica m Send Method: E-Prescr ibed Sub s Allowed: subs [facility] meloxica m Not Available Not [...] 325 mg tablet active Medicati on ID: [id number] B rand Name: hydrocod one-acet aminophe n [...] HCl 25 mg tablet TAKE 1 TABLET EVERY DAY BY ORAL ROUTE FOR 90 DAYS, FOR ANXIETY. active Not [...] 10 mg tablet active Medicati on ID: [id number] B rand Name: hydroxyz ine HCl Send [...] IN EACH NOSTRIL 3 TIMES A DAY 2024 active Not Available Not Available Not [...] Updated DateTime 07/11/2024 177.8 cm 28 kg/m2 84475.51 g Lea Sierra [place] - [facility] 07/11/2024 14:38:46 Social History None recorded. Functional [...] Disorder N Anesthesia Complications N Heart Attack (CT) N Other Skin Condition N Diabetes N [...] SNOMED-CT Code Diagnosis ICD10 Code Diagnosis Note [id number] RIC ALBARADO MD [facility] [address] [address] 07/11/2024 14:12:51 07/11/2024 14:52:00 Deviated nasal septum 343743405 J34.2 Chronic rhinitis 5927635 6 J31.0 Bilateral tinnitus 11502 17454 102 H93.13 f/u with [facility] Concerns Section Related Observation LastModified by Organization Detai ls LastModified Time None Recorded Concern Status LastModified by Organization Details LastModified Time None Recorded Advance Directives Directive None Recorded Payers Encounter Date Sequence Insurance Name Policy Number Policy Gunn Covered Member ID Gunn Member ID Guarantor Name 07/11/2024 1 [facility] - MEDICARE PREFERRED (MEDICARE REPLACEMENT HMO) [facility] Roni Willson [id number] Roni Willson 07/11/2024 2 [place] [facility] Roni Willson [id number] Roni Willson Notes Date Note Type Note [...] per day or more. RIC CUTLER MD [address] [place] [address], [address], [place] - [facility] 07/11/2024 14:51:18
--- OUTSIDE RECORDS SUMMARY | 2024-08-24 10:28 | XMS_ITS | Encounter Summary ---
Author Organization [facility] Address [address] [place] [address] Care Team Providers Care Landing Support Specialist Name Role Phone Gregg Todd MD Primary Care Provider [phone] Reason for Visit * Reason Onset Date Comments Referral 07/14/2024 Encounter Details Date Type Department Care Team (Late st Contact Info) Description 07/14/2024 Telephone Internal Medicine - Accident [address] [facility] [address] [place] [phone] Lia Bae MA Referral Social History Tobacco [...] as of this encounter Progress Notes * Laurie Jha - 08/05/2024 11:13 AM EST Referral updated and refaxed to ENT * Gregg Todd MD - 08/03/2024 4:24 PM EST Check with the referral department * Adrianna Frazier - 08/03/2024 1:39 PM EST ENT surgeons called again and stated there was only 1 authorized visit and they need at least 6 visits with a start date of 07/11/24 and authorization number. * Zana Burnham MA - 07/28/2024 1:28 PM EST Re-faxed to referrals dept. [phone] as requested. * Adrianna Frazier - 07/28/2024 8:43 AM EST ENT surgeons called and stated that this referral needs to be faxed to [phone] directly to thereferrals dept. * Zana Burnham MA - 07/20/2024 4:12 PM EST ENT Referral faxed as requested to [phone]. * Nathalie Mcconnell - 07/20/2024 2:29 PM [...] Received a fax from [facility] for a request for referral (P): [phone] (F): [phone] documented in this encounter Plan of Treatment Upcoming Encounters Date Type Department Care Team (Late st Contact Info) Description 09/28/2024 8:15 AM EDT Office Visit Internal Medicine - [place] [address] [address] Gregg Todd MD [address] [address] 12/29/2024 8:45 AM EDT Office Visit Pulmonolgy - [place] [address] [phone] Felicia Sparrow MD [address] [address] documented as of this encounter Visit Diagnoses Not on filedocumented in this encounter Care Teams Landing Support Specialist Relationship Specialty Start Date End Date Gregg Todd MD [address] [address] PCP - General Internal Medicine 04/17/21 documented as of this encounter
--- OUTSIDE RECORDS SUMMARY | 2024-08-24 10:28 | XMS_ITS | Encounter Summary ---
Author Organization [facility] Address [address] [place] [address] Care Team Providers Care Ip Network Architect Name Role Phone Gregg Todd MD Primary Care Provider [phone] Reason for Referral * Imaging (Routine) - Authorized Specialty Diagnoses / Procedures Referred By Addison t Referred To Contact Radiology Diagnoses LFT elevation Procedures US Abdomen Complete Alok Mccormack MD [address] [address] Phone: tel: fax: [facility] Ultrasound [address] [place] [address] Phone: tel: Referral ID Status Reason Start Date Expiration Date V isits Requested Visits Authorized [id number] Authorized 08/23/2024 08/23/2025 1 1 Reason for Visit * Reason Comments Elevated LFTs Colonoscopy Due 09/2024 * Consultation (Routine) - Authorized Specialty Diagnoses / Procedures Referred By Contac t Referred To Contact Gastroenterology Diagnoses LFT elevation Gregg Todd MD [address] [address] Phone: tel: fax: [facility] [place] 175 [facility] [address] [address] Phone: tel: fax: Referral ID Status Reason Start Date Expiration Date Visits Requested Visits Authorized [id number] Authorized Specialty Services Required 05/17/2024 05/16/2025 12 12 Encounter Details Date Type Department Care Team (Late st Contact Info) Description 08/23/2024 9:00 AM EDT Office Visit Gastroenterology - [place] [address] [place] [address] Alok Mccormack MD [address] [place] [address] Hepatic hemangioma (Primary Dx); LFT elevation Social History Tobacco Use Types Packs/Day Years [...] Pulse 72 08/23/2024 8:42 AM EDT Temperature - - Respiratory Rate - - Oxygen Saturation - - Inhaled Oxygen Concentration - - Weight 89.4 kg (197 lb) 08/23/2024 8:42 AM EDT Height 177.8 cm (5' 10 ) 08/23/2024 8:42 AM EDT Body Mass Index 28.27 08/23/2024 8:42 AM EDT documented in this encounter Progress Notes * Alok Mccormack MD - 08/23/2024 9:00 AM EDT Mild elevation of LFTs. Will get u/s and labs; due for screening colonoscopy last done 09/2014 * Alok Mccormack MD - 08/23/2024 9:00 AM EDT 59 y/o WM knjown to me referred for mild transaminase elevation. HIV on HAART Biktarvy with CD4 700; denies EtOH or change in meds or weight. Followed by Dr Angel. Has known hepatic hemangioma with CT abd 2015 and 2023 stable. Denies IVDA. No Fh liver disease. PMH: back pain; otherwise as noted ROS: negative PE: WN/WD WM NAD HEENT no icterus Cor and Lungs: clear Abd: neg Extr: neg documented in this encounter Plan of Treatment Upcoming Encounters Date Type Department Care Team (Late st Contact Info) Description 09/28/2024 8:15 AM EDT Office Visit Internal Medicine - [place] [address] [phone] Gregg Todd MD [address] [address] 12/29/2024 8:45 AM EDT Office Visit Pulmonolgy - [address] [phone] Felicia Sparrow MD [address] [place] [address] Scheduled Orders Name Type Priority Associated Diagnoses Orde r Schedule US Abdomen Complete Imaging Routine LFT elevation Expected: 08/23/2024, Expires: 08/23/2025 documented as of this encounter Visit Diagnoses Diagnosis Hepatic hemangioma- Primary Hemangioma of other sites LFT elevation documented in this encounter Discontinued Medications Medication Sig Discontinue Reason Start Date End Da te mirtazapine (REMERON) 15 mg tablet TAKE 1 TABLET BY MOUTH EVERY DAY AT NIGHT 12/03/2023 08/23/2024 mirtazapine (REMERON) 30 mg tablet Take 1 Tablet by mouth daily. 08/20/2022 08/23/2024 documented as of this encounter Orders Lab Orders Without Results Count Last Ordered D ate First Ordered Date HEPATITIS PROFILE, GENERAL 1 08/23/2024 IRON WITH TIBC AND FERRITIN 1 08/23/2024 Outpatient Referral Count Last Ordered Date Fir st Ordered Date AMB REFERRAL TO GASTROENTEROLOGY 1 08/24/19 25 documented in this encounter Care Teams Ip Network Architect Relationship Specialty Start Date End Date Gregg Todd MD [address] [place] [address] PCP - General Internal Medicine 04/17/21 documented as of this encounter
--- OUTSIDE RECORDS SUMMARY | 2024-08-24 10:28 | XMS_ITS | Encounter Summary ---
Author Organization [facility] [address] Address [address] [place] [address] Care Team Providers Care Stationary Engineer Refrigeration Name Role Phone Gregg Todd MD Primary Care Provider [phone] Reason for Visit * Reason Comments Pain Follow-up Encounter Details Date Type Department Care Team ([facility] st Contact Info) Description 07/25/2024 8:30 AM EST Office Visit Orthopedic Surgery - [place] [address] [facility] 250 [place] [phone] Norberto Arcos MD 175 [facility] [address] [place] [address] Left shoulder pain (Primary Dx) Social History [...] Roni Willson is a 59 y.o. male lljrr-lhow-qbxmhpog past medical history of lumbar stenosis status [...] 8:15 AM EDT Office Visit Internal Medicine [address] [phone] Gregg Todd MD [address] [place] [address] 12/29/2024 8:45 AM EDT Office Visit Pulmonolgy - [address] [phone] Felicia Sparrow MD [address] [place] [address] documented as of this encounter Results * [...] region documented in this encounter Care Teams Stationary Engineer Refrigeration Relationship Specialty Start Date End Date Gregg Todd MD [address] [address] PCP - General Internal Medicine 04/17/21 documented as of this encounter
== END 2024-08-24 09:56 | disposition home or self-care (01) ==
LOC: HO.PMC 09:34
PROVIDERS: PCP Internal Medicine; Visit Provider Internal Medicine
DX: M48.061 Spinal stenosis, lumbar region without neurogenic claudication (principal)
CPT/HCPCS: 99214

== ENCOUNTER → 2024-08-24 09:33 | Outpatient (BNVA) | payer MEDICARE, MEDICAID, SELFPAY | PROVIDERS: PCP Internal Medicine; Visit Provider Internal Medicine | DX: Z51.81 Encounter for therapeutic drug level monitoring (principal); M48.061 Spinal stenosis, lumbar region without neurogenic claudication; F11.20 Opioid dependence, uncomplicated | CPT/HCPCS: 99212 ==

== ENCOUNTER 2024-09-21 10:02 | Outpatient (AMB) | payer MEDICARE, MEDICAID, SELFPAY ==
--- NOTE | 2024-09-21 09:51 | A.OFFVIS_ITS ---
Vital Signs 09/21/24 10:06 Height 5 ft 10 in Weight 195 lb BMI 28.0 BP 147/75 H Blood Pressure Location Lt brachial Position Sitting Respiration 16 Pulse 62 Pulse Source Pulse Oximeter Pulse Oximetry (%) 99 Oxygen Delivery Method Room Air Intake Visit Reasons: Pill Count Intake Note: Pt states he last took vicodin 09/21/24 @ 8am Metropolitan Editor Required: No Allergies No Known Allergies Allergy (Verified 09/21/24 10:07) Medication List - Last Reconciled 09/21/24 by Loida Louie LPN albuterol sulfate 90 mcg/actuation 2 puffs inhalation Q6H PRN alprazolam 0.5 mg PO TID PRN vkswhhbjd-wmapbmpk-thoonvc ala 50-200-25 mg (Biktarvy) 1 tab PO DAILY celecoxib 100 mg PO BID PRN chlorhexidine gluconate 0.12% 15 mL PO BID doxycycline hyclate 100 mg PO DAILY ferrous sulfate 324 mg PO 3XW fluoxetine 20 mg PO DAILY fluticasone propionate 50 mcg/actuation 1 spray intranasal BID gabapentin 600 mg PO QID hydrocodone-acetaminophen 5-325 mg 1 tab PO Q4-6H PRN lidocaine 5% 1 patch topical DAILY 30 days meclizine 25 mg PO DAILY PRN mupirocin 2% topical DAILY naloxone 4 mg/actuation (Narcan) 4 mg intranasal Q2M PRN omeprazole 40 mg PO DAILY simvastatin 20 mg PO BEDTIME terbinafine HCl 250 mg PO DAILY zolpidem 5 mg PO BEDTIME PRN HPI HPI Pill Count: Details: History of Present Illness The patient is a 59-year-old male presenting with left flank pain. This pain, characterized as sharp and dull, began suddenly and persisted over the weekend, significantly impacting his daily function. His medical history includes treatment by a urologist for nephrolithiasis in 2019. Associated symptoms include difficulties with urination, described as a weak stream and slight discomfort upon urination. These symptoms align with past episodes possibly linked to kidney stones. The patient received recent approval for an MRI of the back concerning another issue. He is currently inquiring if the acute pain warrants further diagnostics, particularly to rule out or confirm the presence of renal stones causing the current presentation. Pain Description - Onset: Sudden; severe over the weekend - Quality: Sharp and dull - Location: Left flank, possible kidney region - Radiation: Not specified - Exacerbating factors: None specified - Relieving factors: None specified - Impact on functions: Unable to get up, curled up in a ball - Associated symptoms: Difficulty urinating, weak stream, slight pain during urination Physical Exam - Appears afebrile. - Alert and oriented. - Mood and affect appropriate. - Follows and participates in conversation appropriately. - Respiratory effort is unlabored. - Able to transition from sit to stand unassisted. - Ambulates with bilaterally normal heel strike and toe off. - Able to stand and walk on toes and heels. - Moderate left flank tenderness. Results Pain Management - Affect: Pain is impacting daily activities and causing psychological distress - Analgesia: Not specified in the conversation aside from potential renal stone concern - Adverse Effects: Not discussed - Activities of Daily Living: Pain hinders normal activities - Aberrant Drug Related Behaviors: Pill count check shows consistency; no aberrant behavior noted Physical Exam Vital Signs: Last Vital Signs Pulse 62 09/21/24 10:06 Resp 16 09/21/24 10:06 BP 147/75 H 09/21/24 10:06 Pulse Ox 99 09/21/24 10:06 Oxygen Delivery Method Room Air 09/21/24 10:06 BMI result Body Mass Index 28.0 Assessment & Plan Assessment & Plan (1) Lumbar radiculitis: Code(s): M54.16 - Radiculopathy, lumbar region Category: Medical (2) Failed back syndrome: Code(s): M96.1 - Postlaminectomy syndrome, not elsewhere classified Category: Medical (3) Nephrolithiasis: Code(s): N20.0 - Calculus of kidney Category: Medical Plan Plan Given the acute presentation of left flank pain and symptoms suggestive of nephrolithiasis, I advised the patient to seek prompt evaluation in the emergency department. A CT scan will confirm the presence of a kidney stone, followed by appropriate urological interventions if necessary. The history of similar occurrences aligns with this provisional diagnosis. Additionally, previously scheduled diagnostics, such as the MRI of his back, will be followed up as unrelated to this acute pain episode. Monitoring and further management will be based on emergency department findings. Patient was informed and verbally consented to the use of an ambient scribe for clinic note documentation during this visit. Discussion Notes During the visit, I discussed with the patient the likelihood of nephrolithiasis based on the current symptoms and their similarity to his history with kidney stones. I explained the necessity of an urgent CT scan to confirm this suspicion and discussed potential urological intervention should a stone be obstructing the urinary tract. The patient was informed about the specific process and encouraged to immediately go to the emergency department for timely management. I reviewed the pill count, which indicated good compliance, eliminating immediate concerns of medication misuse. Patient Instructions - Go to the Emergency Room immediately for evaluation of flank pain. - Expect to undergo a CT scan to assess for kidney stones. - Bring any relevant medical records to the ER. - Follow up on the MRI approval for your back as previously arranged. - Return to clinic or seek medical care if experiencing increased pain or new symptoms. Medications: Refilled hydrocodone-acetaminophen 5-325 mg Partial Fill upon patient request. 1 tab PO Q4-6H PRN 180 tabs 0RF pain Coding Level of Care Code Est Pt Level 4 (84383) Diagnoses Lumbar radiculitis M54.16 Failed back syndrome M96.1 Nephrolithiasis N20.0
[2024-09-21 10:06] VITALS: BP 147/75; PULSE 62; RESP 16; O2SAT 99; BMI 28.0
--- OUTSIDE RECORDS SUMMARY | 2024-09-21 11:13 | XMS_ITS | Clinical Summary ---
Author Organization LL 175 [facility]ly [facility] Address [address] [place] [address] Phone Care Team Providers Care Bandage Winding Machine Operator Name Role Phone Gregg Todd MD Primary Care Provider [phone] Allergies No known active allergies Medications terbinafine [...] BY MOUTH EVERY DAY AT BEDTIME 04/11/20 Active omeprazole (PriLOSEC) [address] capsule TAKE 1 CAPSULE BY MOUTH EVERY DAY 90 capsule 1 05/30/20 24 Active fluticasone furoate (Arnuity Ellipta) 100 mcg/actuation blister with device inhaler Inhale 1 puff by mouth 1 (one) time each day. 1 each 06/30/19 25 026 Active beclomethasone dipropionate (Qvar RediHaler) 80 mcg/actuation HFA aerosol breath activated inhaler Inhale 2 puffs by mouth 2 (two) times a day. 3 each 07/01/19 25 026 Active fluticasone propionate (FLONASE) [...] dizziness. 90 tablet 1 08/24/19 25 Active albuterol HFA (PROAIR HFA ; PROVENTIL HFA ; VENTOLIN HFA) 90 mcg/actuation inhalerIndicatio ns:Chronic bronchitis, unspecified chronic bronchitis type (CMS/HCC) Inhale 2 puffs by mouth every 6 (six) hours if needed for wheezing. 1 each 08/30/19 25 026 Active mirtazapine (REMERON) 15 mg tablet TAKE 1 TABLET BY MOUTH EVERY DAY AT NIGHT 12/03/19 24 025 Discontinued mirtazapine (REMERON) 30 mg tablet Take 1 Tablet by mouth daily. 08/21/19 23 025 Discontinued albuterol HFA (PROAIR HFA ; PROVENTIL HFA ; VENTOLIN HFA) 90 mcg/actuation inhalerIndicatio ns:Chronic bronchitis, unspecified chronic bronchitis type (CMS/HCC) Inhale 2 puffs by mouth every 6 (six) hours if needed for wheezing or shortness of breath. 1 each 05/30/20 24 025 Discontinued meclizine (ANTIVERT) 25 mg [...] Plan: Mr. Willson is being [facility] by Dr. Carreno where he [...] Encounters Date Type Department Care Team Description 09/21/2024 10:56 AM EDT Emergency [facility] Emergency [address] [place] [address] 09/01/2024 6:58 AM EDT - 09/01/2024 11:59 PM EDT Hospital Encounter [facility] Ultrasound [address] [place] [address] LFT elevation Discharge Disposition: Home or Self Care 08/23/2024 9:00 AM EDT Office Visit Gastroenterology - [place] [address] [facility] [address] [place] [phone] Alok Mccormack MD Hepatic hemangioma (Primary Dx); LFT elevation 07/25/2024 8:30 AM EST Office Visit Orthopedic Surgery - [place] [address] [facility] [address] [place] [phone] Norberto Arcos MD Left shoulder pain (Primary Dx) 07/14/2024 Telephone Internal Medicine - [place] 175 [facility] [address] [place] [phone] Lia Bae [place] Referral 06/30/2024 9:00 AM EST Office Visit Pulmonolgy - [place] 175 [facility] [address] [place] [phone] Felicia Sparrow MD Chronic asthmatic bronchitis (CMS/HCC) (Primary Dx); Elevated diaphragm 06/23/2024 9:48 AM EST - 06/23/2024 11:59 PM EST Hospital Encounter [facility] CT Scan [address] [place] [phone] of the chest; Lung nodules Discharge Disposition: Home or Self Care from Last 3 Months Immunizations Name Administration Dates Next Due DTaP (Infanrix) 6wks to less than 7yo 07/29/2012 Hepatitis A Adult (Havrix; V aqta) 19yo and older 08/10/2015 Hepatitis B (Uukxalh-P-Txmjr , Recombivax HB-Adult) 19yo and older 02/20/2017,09/12/2016,08/15/2016 [...] lumbar disc HIV (human immunodeficiency virus infection) ([facility]) 01/04/2019 DX:HIV (human immunodeficien cy virus infection) ([facility]) Hypertension 01/04/2019 DX:Hypertension Spinal stenosis, lumbar [...] Hypertension DX:Hypertension HIV (human immunodeficiency virus infection) ([facility]/HCC) DX:HIV (human immunodeficien cy virus infection) ([facility]) Anemia DX:Anemia Family History Medical History Relation [...] Information Value Date Recorded Sex Assigned at Male 08/25/2024 11:41 AM EDT Legal Sex Male 3:16 PM EST Gender Identity Male 08/25/2024 11:41 AM EDT Sexual Orientation Choose not to disclose 2024 11:41 AM EDT Obstetrics History Last Filed Vital Signs Vital Sign Reading Time Taken Comments Blood Pressure 144/108 09/21/2024 11:05 AM EDT Pulse 60 09/21/2024 11:05 AM EDT Temperature 36.6 ??C (97.9 ??F) 09/21/2024 11:05 AM E DT Respiratory Rate 18 09/21/2024 11:05 AM EDT Oxygen Saturation 100% 09/21/2024 11:05 AM EDT Inhaled Oxygen Concentration - - Weight 88.5 kg (195 lb) 09/21/2024 11:05 AM EDT Height 177.8 cm (5' 10 ) 09/21/2024 11:05 AM EDT Body Mass Index 27.98 09/21/2024 11:05 AM EDT Plan of Treatment Upcoming Encounters Date Type Department Care Team (Late st Contact Info) Description 09/28/2024 8:15 AM EDT Office Visit Internal Medicine [facility] [address] [phone] Gregg Todd MD [address] [address] 12/08/2024 8:30 AM EDT Appointment [facility] Endoscopy [address] [place] [phone] Alok Mccormack MD [address] [address] 12/29/2024 8:45 AM EDT Office Visit Pulmonolgy - [place] 175 [facility] [address] [place] [phone] Felicia Sparrow MD 175 [facility] [address] [place] [address] Health Maintenance Due Date Last Done Comments [...] 05/24/2022 Social Influencers of Health Screening 05/24/2022 RSV Immunization Adult Patients (1 - Risk 60-74 years 1-dose series) 2024 Colorectal Cancer Screening: Colonoscopy 09/22/2024 09/22/2014 Influenza Vaccine (Season Ended) 2025 04/22/2021, 03/20/2020 Hypertension/CHF/CAD Annual BMP Blood Test 08/23/2025 08/23/2024, [...] age to complete this topic Meningococcal B Vaccine Aged Out No l onger eligible based on patient's age to complete this topic RSV Immunization Patients Under 20 months Aged Out No longer eligible b ased on patient's age to complete this topic Varicella Vaccines Aged Out No longer eligible based on patient's age to complete this topic Procedures Procedure Name Priority Date/Time Associated Diagnosis Comments US ABDOMEN LIMITED Routine 09/01/2024 7: 28 AM EDT LFT elevation CBC WITH AUTO DIFFERENTIAL Routine 08/23/2024 9:33 [...] immunodeficiency virus (HIV) disease (CMS/HCC) Obesity, unspecified LYMPHOCYTE T-CELL PANEL Routine 08/23/2024 9:33 AM EDT Elevated [...] Abnormal CT of the chest Lung nodules HM COLONOSCOPY Routine 09/22/2014 from Last 3 Months or Most Recently Relevant to Health Maintenance Results * US Abdomen Limited (09/01/2024 7:28 AM EDT) Anatomical Region Laterality Modality Body Ultrasound 09/01/2024 8:48 AM EDT Impressions 09/01/2024 9:07 AM EDT Evaluation limited by poor sonographic windows. ??No visible abnormality. -------- FINAL REPORT -------- Dictated By: Amari Beach Dictated Date: 09/01/2024 08:48 ET Assigned Physician: Amari Beach Reviewed and Electronically Signed By: Amari Beach Signed Date: 09/01/2024 09:07 ET Workstation ID: [id number] Transcribed By: Self Edit Transcribed Date: 09/01/2024 08:48 ET Narrative 09/01/2024 9:07 AM EDT PROCEDURE: Right upper quadrant ultrasound. HISTORY: elevated transaminases. COMPARISON: MRI dated 09/11/2016. TECHNIQUE: Grayscale, color Doppler, and spectral Doppler ultrasound evaluation of the right upper quadrant of the abdomen. FINDINGS: LIVER: Evaluation limited secondary to limited sonographic windows. ??Normal echotexture. ??No visible focal lesion. ??Normal flow in the main portal vein. BILIARY: Normal appearance of the gallbladder and biliary tree. ??Negative sonographic Shahid sign. PANCREAS: Obscured and not evaluated. RIGHT KIDNEY: Normal size and echotexture. ??No hydronephrosis or focal lesion. Procedure Note Amari Beach MD - 09/01/2024 PROCEDURE: Right upper quadrant ultrasound. HISTORY: elevated transaminases. COMPARISON: MRI dated 09/11/2016. TECHNIQUE: Grayscale, color Doppler, and spectral Doppler ultrasoundevaluation of the right upper quadrant of the abdomen. FINDINGS: LIVER: Evaluation limited secondary to limited sonographic windows.Normal echotexture. No visible focal lesion. Normal flow in the mainportal vein. BILIARY: Normal appearance of the gallbladder and biliary tree. Negativesonographic Shahid sign. PANCREAS: Obscured and not evaluated. RIGHT KIDNEY: Normal size and echotexture. No hydronephrosis or focallesion. IMPRESSION: Evaluation limited by poor sonographic windows. No visible abnormality. -------- FINAL REPORT -------- Dictated By: Amari Beach Dictated Date: 09/01/2024 08:48 ET Assigned Physician: Amari Beach Reviewed and Electronically Signed By: Amari Beach Signed Date: 09/01/2024 09:07 ET Workstation ID: [id number] Transcribed By: Self Edit Transcribed Date: 09/01/2024 08:48 ET Alok Mccormack MD [facility] US PROCEDURES Final Result * Hepatitis B surface antigen with reflex to confirmation (08/23/2024 9:33 AM EDT) [facility] Hepatitis B Surface Ag Negative Negative LAB CHEMISTRY METHOD 08/23/2024 11:48 AM EDT [facility] Blood Venous blood specimen / Unknown Venipuncture / Unknown 08/23/2024 9:33 AM EDT 08/23/2024 10:35 AM EDT Narrative [facility] - 08/23/2024 11:48 AM EDT Over the counter supplements containing high doses of biotin may interfere with this assay. ??If interference is suspected, patients shoud be retested after refraining from biotin supplements for 72 hours. Юлия Angel MD LAB BLOOD ORDERABLES Una l Result Performing Organization Address City/[facility]/ZIP Co de Phone Number [facility] [address] [place] [address], [place] [phone] * Treponema pallidum antibody with reflex to RPR and particle agglutination (08/23/2024 9:33 AM EDT) [facility] T. Pallidum Antibodies Negative Negative LAB CHEMISTRY METHOD 08/23/2024 11:50 AM EDT [facility] Blood Venous blood specimen / Unknown Venipuncture / Unknown 08/23/2024 9:33 AM EDT 08/23/2024 10:35 AM EDT Юлия Angel MD LAB BLOOD ORDERABLES Una l Result [facility] [address] [place] [address], [place] [phone] * (ABNORMAL) Lipid panel with reflex to direct LDL (08/23/2024 9:33 AM EDT) [facility] Cholesterol 210(H) 0 - 200 mg/dL LAB CHEMISTRY METHOD 08/23/2024 11:24 AM EDT [facility] Triglycerides 154(H) 0 - 150 mg/dL LAB CHEMISTRY METHOD 08/23/2024 11:24 AM EDT [facility] HDL 58 >=40 mg/dL LAB CHEMISTRY METHOD 08/23/2024 11:24 AM EDT [facility] LDL Calculated 121(H) 0 - 100 mg/dL LAB CHEMISTRY METHOD 08/23/2024 11:24 AM EDT [facility] VLDL Cholesterol Yovany 30.8 mg/dL LAB CHEMISTRY METHOD 08/23/2024 11:24 AM EDT [facility] Non HDL Chol. (LDL+VLDL) 152(H) <145 mg/dL LAB CHEMISTRY METHOD 08/23/2024 11:24 AM [facility] Chol/HDL Ratio 3.6 0.0 - 4.4 LAB CHEMISTRY METHOD 08/23/2024 11:24 AM T [facility] Blood Venous blood specimen / Unknown Venipuncture / Unknown 08/23/2024 9:33 AM EDT 08/23/2024 10:35 AM EDT us Юлия Angel MD LAB BLOOD ORDERABLES Una tovar Result [facility] [address] [place] [address], * Hepatitis panel, acute with reflex to confirmation (08/23/2024 9:33 AM EDT) Hepatitis B Surface Ag Negative Negative LAB CHEMISTRY METHOD 08/23/2024 12:18 PM EDT [facility] Hepatitis A Antibody IgM Negative Negative LAB CHEMISTRY METHOD 08/23/2024 12:18 PM [facility] Hep B Core IgM Negative Negative LAB CHEMISTRY METHOD 08/23/2024 12:18 PM EDT [facility] Hepatitis C Antibody Negative Negative LAB CHEMISTRY METHOD 08/23/2024 12:18 PM EDT [facility] Blood Venous blood specimen / Unknown Venipuncture / Unknown 08/23/2024 9:33 AM EDT 08/23/2024 10:35 AM EDT us Alok Mccormack MD LAB BLOOD ORDERABLES Final Resul t [facility] [address] [place] [address], * CBC auto differential (08/23/2024 9:33 AM EDT) WBC 5.7 4.8 - 10.8 K/mcL LAB HEMETOLOGY METHOD 08/23/2024 11:06 AM EDT [facility] RBC 4.90 4.50 - 5.50 M/mcL LAB HEMETOLOGY [facility]/23[facility]24 [facility] Hemoglobin 14.8 13.5 - 17.5 g/dL LAB HEMETOLOGY METHOD 08/23/2024 11:06 AM EDT [facility] Hematocrit 44.7 42.0 - 54.0 % LAB HEMETOLOGY METHOD 08/23/2024 [facility] MCV 92.2 79.0 - 98.0 FL LAB HEMETOLOGY METHOD 08/23/2024 11:[facility] MCH 30.5 27.0 - 32.0 pcg LAB HEMETOLOGY METHOD 08/23/2024 11:06 AM [facility] MCHC 33.1 32.0 - 37.0 g/dL LAB HEMETOLOGY METHOD 08/23/2024 11:06 AM [facility] RDW 13.4 11.0 - 15.0 % LAB HEMETOLOGY METHOD 08/23/2024 11:06 AM [facility] Platelets 222 130 - 400 K/mcL LAB HEMETOLOGY METHOD 08/23/2024 11:06 AM [facility] MPV 10.9 7.0 - 11.0 FL LAB HEMETOLOGY METHOD 08/23/2024 11:06 AM [facility] NRBC 0.0 <1.0 % LAB HEMETOLOGY METHOD 08/23/2024 11:06 AM [facility] NRBC Absolute 0.00 <0.10 K/mcL LAB HEMETOLOGY METHOD 08/23/2024 11:06 AM [facility] Neutrophils Relative 63.0 % LAB HEMETOLOGY METHOD 08/23/2024 11:06 AM [facility] Lymphocytes Relative 26.1 % LAB HEMETOLOGY METHOD 08/23/2024 11:06 AM [facility] Monocytes Relative 7.5 % LAB HEMETOLOGY METHOD 08/23/2024 11:06 AM [facility] Eosinophils Relative 2.4 % LAB HEMETOLOGY METHOD 08/23/2024 11:06 AM [facility] Basophils Relative 0.5 % LAB HEMETOLOGY METHOD 08/23/2024 11:06 AM [facility] Immature Granulocytes Relative 0.5 % LAB HEMETOLOGY METHOD 08/23/2024 11:06 AM [facility] Neutrophils Absolute 3.61 1.50 - 7.00 K/mcL LAB HEMETOLOGY METHOD 08/23/2024 11:06 AM [facility] Lymphocytes Absolute 1.50 1.00 - 5.00 K/mcL LAB HEMETOLOGY METHOD 08/23/2024 11:06 AM [facility] Monocytes Absolute 0.43 0.20 - 1.00 K/mcL LAB HEMETOLOGY METHOD 08/23/2024 11:06 AM EDT [facility] Eosinophils Absolute 0.14 0.00 - 0.50 K/mcL LAB HEMETOLOGY METHOD 08/23/2024 11:06 AM EDT [facility] Basophils Absolute 0.03 0.00 - 0.20 K/mcL LAB HEMETOLOGY METHOD 08/23/2024 11:06 AM EDT [facility] Immature Granulocytes Absolute 0.03 0.00 - 0.03 K/mcL LAB HEMETOLOGY METHOD 08/23/2024 11:06 AM EDT [facility] Blood Venous blood specimen / Unknown Venipuncture / Unknown 08/23/2024 9:33 AM EDT 08/23/2024 10:40 AM EDT Юлия Angel MD LAB BLOOD ORDERABLES Una tovar Result Performing Organization Address City/[facility]/ZIP Co de Phone Number [facility] [address] [place] [address], [place] [phone] * Iron and TIBC (08/23/2024 9:33 AM EDT) Iron 95 50 - 160 mcg/dL LAB CHEMISTRY METHOD 08/23/2024 11:23 AM EDT [facility] TIBC 296 250 - 450 mcg/dL LAB CHEMISTRY METHOD 08/23/2024 11:23 AM EDT [facility] Iron Saturation 32 20 - 50 % LAB CHEMISTRY METHOD 08/23/2024 11:23 AM EDT [facility] Blood Venous blood specimen / Unknown Venipuncture / Unknown 08/23/2024 9:33 AM EDT 08/23/2024 10:35 AM EDT Alok Mccormack MD LAB BLOOD ORDERABLES Maxine Resul t [facility] [address] [place] [address], [place] [phone] * Lymphocyte T-cell panel (08/23/2024 9:33 AM EDT) [facility] CD4 671 426 - 1,776 cells/mcL 08/25/2024 7:03 AM EDT [facility] CD8 300 161 - 838 cells/mcL 08/25/2024 7:03 AM EDT [facility] CD4/CD8 Ratio 2.24 0.90 - 4.90 08/25/2024 7:03 AM EDT [facility] CD4 % 45 33 - 64 % 08/25/2024 7:03 AM EDT [facility] CD8 % 20 10 - 39 % 08/25/2024 7:03 AM EDT [facility] Blood Venous blood specimen / Unknown Venipuncture / Unknown 08/23/2024 9:33 AM EDT 08/23/2024 10:41 AM EDT Юлия Angel MD LAB MOLECULAR DIAGNOSTICS ORDERABLES Final Result [facility] [address] [place] [address], [place] [phone] * (ABNORMAL) HIV 1 molecular study quantitative (08/23/2024 9:33 AM EDT) [facility] HIV-1 RNA Interpretation Detected (A) Not Detected LAB MOLECULAR DIAGNOSTICS METHOD 08/23/2024 3:02 PM EDT [facility] HIV-1 RNA Copies <20 <20 copies/mL LAB MOLECULAR DIAGNOSTICS METHOD 08/23/2024 3:02 PM EDT [facility] Comment:HIV RNA detected but below the limit of quantitation. Unable to report quantitative results <20 copies/mL. HIV-1 RNA Log <1.30 <1.30 Log 10 copies/mL LAB MOLECULAR DIAGNOSTICS METHOD 08/23/2024 3:02 PM EDT [facility] Blood Venous blood specimen / Unknown Venipuncture / Unknown 08/23/2024 9:33 AM EDT 08/23/2024 10:42 AM EDT Юлия Angel MD LAB BLOOD ORDERABLES Una l Result Performing Organization Address [facility] Co de Phone Number [facility] [address] [place] [address], [place] [phone] * Thyroid stimulating hormone (08/23/2024 9:33 AM EDT) Pathologist [facility] TSH 2.20 0.40 - 4.00 mcIU/mL LAB CHEMISTRY METHOD 08/23/2024 11:37 AM EDT [facility] Blood Venous blood specimen / Unknown Venipuncture / Unknown 08/23/2024 9:33 AM EDT 08/23/2024 10:35 AM EDT Юлия Angel MD LAB BLOOD ORDERABLES Una l Result Performing Organization Address [facility] Co de Phone Number [facility] [address] [place] [address], [place] [phone] * (ABNORMAL) Lipase (08/23/2024 9:33 AM EDT) Lipase 411(H) 13 - 75 unit/L LAB CHEMISTRY METHOD 08/23/2024 11:43 AM EDT [facility] Blood Venous blood specimen / Unknown Venipuncture / Unknown 08/23/2024 9:33 AM EDT 08/23/2024 10:35 AM EDT Юлия Angel MD LAB BLOOD ORDERABLES Una l Result Performing Organization Address City/[facility]/ZIP Co de Phone Number [facility] [address] [place] [address], [place] [phone] * (ABNORMAL) Amylase (08/23/2024 9:33 AM EDT) Pathologist [facility] Amylase 211(H) 25 - 115 unit/L LAB CHEMISTRY METHOD 08/23/2024 11:23 AM EDT [facility] Blood Venous blood specimen / Unknown Venipuncture / Unknown 08/23/2024 9:33 AM EDT 08/23/2024 10:35 AM EDT Юлия Angel MD LAB BLOOD ORDERABLES Una tovar Result [facility] [address] [place] [address], [place] [phone] * Comprehensive metabolic panel (08/23/2024 9:33 AM EDT) [facility] Sodium 139 133 - 145 mmol/L LAB CHEMISTRY METHOD 08/23/2024 12:05 PM [facility] Potassium 4.9 3.5 - 5.5 mmol/L LAB CHEMISTRY METHOD 08/23/2024 12:05 PM [facility] Chloride 106 96 - 110 mmol/L LAB CHEMISTRY METHOD 08/23/2024 12:05 PM [facility] CO2 29 21 - 32 mmol/L LAB CHEMISTRY METHOD 08/23/2024 12:05 PM [facility] Anion Gap 4 3 - 11 LAB CHEMISTRY METHOD 08/23/2024 12:05 PM [facility] Glucose 92 70 - 100 mg/dL LAB CHEMISTRY METHOD 08/23/2024 12:05 PM [facility] BUN 20 5 - 25 mg/dL LAB CHEMISTRY METHOD 08/23/2024 12:05 PM [facility] Creatinine 1.19 0.70 - 1.30 mg/dL LAB CHEMISTRY METHOD 08/23/2024 12:05 PM [facility] eGFR 70 >=60 mL/min/1. 73m2 LAB CHEMISTRY METHOD 08/23/2024 12:05 PM [facility] Comment:Calculation based on the??Chronic Kidney Disease Epidemiology Collaboration (CKD-EPI) equation refit??without adjustment for race. BUN/Creatinine Ratio 16.8 LAB CHEMISTRY METHOD 08/23/2024 12:05 PM [facility] Calcium 9.2 8.5 - 10.5 mg/dL LAB CHEMISTRY METHOD 08/23/2024 12:05 PM [facility] AST (SGOT) 13 10 - 42 unit/L LAB CHEMISTRY METHOD 08/23/2024 12:05 PM [facility] ALT (SGPT) 46 10 - 60 unit/L LAB CHEMISTRY METHOD 08/23/2024 12:05 PM [facility] Alkaline Phosphatase 96 42 - 121 unit/L LAB CHEMISTRY METHOD 08/23/2024 12:05 PM [facility] Total Protein 7.0 6.0 - 8.0 g/dL LAB CHEMISTRY METHOD 08/23/2024 12:05 PM [facility] Albumin 3.8 3.2 - 5.0 g/dL LAB CHEMISTRY METHOD 08/23/2024 12:05 PM [facility] Total Bilirubin 0.7 0.0 - 1.4 mg/dL LAB CHEMISTRY METHOD 08/23/2024 12:05 PM [facility] Blood Venous blood specimen / Unknown Venipuncture / Unknown 08/23/2024 9:33 AM EDT 08/23/2024 10:35 AM EDT us Юлия Angel MD LAB BLOOD ORDERABLES Una tovar Result [facility] [address] [place] [address], * XR Shoulder 2+ Views Left (07/25/2024 [...] Signed Date: 06/30/2024 09:37 ET Workstation ID: [id number] Transcribed By: Self Edit Transcribed Date: 06/30/2024 09:30 ET Narrative 06/30/2024 9:37 AM EST INDICATION: Pulmonary nodule TECHNIQUE: CT scan of the chest obtained without contrast. Scanner: M-Audio 128 slice VCT Dose reduction technique: ASIR [...] of the chest obtained without contrast. Scanner: M-Audio 128 slice VCT Dose reduction technique: ASIR [...] Signed Date: 06/30/2024 09:37 ET Workstation ID: [id number] Transcribed By: Self Edit Transcribed Date: 06/30/2024 09:30 ET Felicia Sparrow MD [facility] CT PROCEDURES Final Result * Colonoscopy (09/22/2014) Colonoscopy Abstracted Anatomical Region Laterality Modality Other Historical Provider HEALTH MAINTENANCE Final Result from Last 3 Months or Most Recently Relevant to Health Maintenance Insurance [employer] [place] - [place] Care Teams Bandage Winding Machine Operator Relationship Specialty Start Date End Date Gregg Todd MD 175 [facility] [address] [place] [address] PCP - General Internal Medicine 04/17/21
--- OUTSIDE RECORDS SUMMARY | 2024-09-21 11:13 | XMS_ITS | Encounter Summary ---
Author Organization [facility] Address [address] [place] [address] Care Team Providers Care Manager Operating Name Role Phone Gregg Todd MD Primary Care Provider [phone] Reason for Visit * Reason Comments Flank Pain Left sided flank edgar n. Pt reports Hx of kidney stones. + dark urine, decreased urination. Encounter Details Date Type Department Care Team (Late st Contact Info) Description 09/21/2024 10:[address] [facility] [address] [place] [address] Social History Tobacco Use Types Packs/Day Years [...] not to disclose 2024 11:41 AM EDT documented as of this encounter Last Filed [...] Mass Index 27.98 09/21/2024 11:05 AM EDT documented in this encounter Progress Notes * Nanci Paiz RN - 09/21/2024 11:04 AM EDT Pt c/o left flank pain that started on sat Urination is slower than normal +nausea documented in this encounter Plan of Treatment Upcoming Encounters Date Type Department Care Team (Late st Contact Info) Description 09/28/2024 8:15 AM EDT Office Visit Internal Medicine [facility] [address] [phone] Gregg oTdd MD [address] [address] 12/08/2024 8:[address] [facility] [address] [place] [phone] Alok Mccormack MD [address] [address] 12/29/2024 8:45 AM EDT Office Visit Pulmonolgy [facility] [address] [phone] Felicia Sparrow MD [address] [address] Scheduled Orders Name Type Priority Associated Diagnoses Orde r Schedule CBC and differential Lab STAT STAT for 1 Occurrences starting 09/21/2024 until 09/21/2024 Comprehensive metabolic panel Lab STAT STAT for 1 Occur rences starting 09/21/2024 until 09/21/2024 Lipase Lab STAT STAT for 1 Occ urrences starting 09/21/2024 until 09/21/2024 CBC auto differential Lab Routine Onc e for 1 Occurrences starting 09/21/2024 until 09/21/2024 documented as of this encounter Visit Diagnoses Not on filedocumented in this encounter Care Teams Manager Operating Relationship Specialty Start Date End Date Gregg Todd MD [address] [place] [address] PCP - General Internal Medicine 04/17/21 documented as of this encounter
--- OUTSIDE RECORDS SUMMARY | 2024-09-21 11:13 | XMS_ITS | Clinical Summary ---
Author Organization [facility] Address [address] [place] [address] Care Team Providers Care Unit Receptionist Name Role Phone Gregg Todd MD Primary [...] age to complete this topic Care Teams Unit Receptionist Relationship Specialty Start Date End Date Gregg Todd MD PCP - General Internal Medicine 06/29/23
== END 2024-09-21 10:31 | disposition home or self-care (01) ==
LOC: HO.PMC 10:03
PROVIDERS: PCP Internal Medicine; Visit Provider Internal Medicine
DX: M54.16 Radiculopathy, lumbar region (principal); M96.1 Postlaminectomy syndrome, not elsewhere classified; N20.0 Calculus of kidney
CPT/HCPCS: 99214

== ENCOUNTER → 2024-09-21 10:02 | Outpatient (BNVA) | payer MEDICARE, MEDICAID, SELFPAY | PROVIDERS: PCP Internal Medicine; Visit Provider Internal Medicine | DX: Z51.81 Encounter for therapeutic drug level monitoring (principal); M54.16 Radiculopathy, lumbar region; M96.1 Postlaminectomy syndrome, not elsewhere classified; N20.0 Calculus of kidney; Z79.891 Long term (current) use of opiate analgesic | CPT/HCPCS: 99212 ==

== ENCOUNTER 2024-09-29 09:05 | Outpatient (REF) | payer MEDICARE, MEDICAID, SELFPAY ==
--- NOTE | ~2024-09-29 | MR_ITS ---
EXAMINATION: MR LUMBAR SPINE WITHOUT AND WITH CONTRAST CLINICAL INFORMATION: [Pain radiating to both legs, chronic. Most recent spine surgery in 2021 for herniated disc. COMPARISON: 10/15/2021 MR lumbar. TECHNIQUE: Multiplanar multisequence MR imaging of the lumbar spine was done both before and after the administration of 9 mL IV Gadavist. Examination was performed on a 1.5 Elsy Siemens magnet, utilizing standard sequences. FINDINGS: POSTOPERATIVE CHANGES: There has been a left hemilaminotomy at L2-3. There has been a hemilaminotomy at L3-4. There has been a probable hemilaminotomy at L4-5. There is been a right hemilaminectomy at L5-S1. CORONAL ALIGNMENT: Minimal right convex scoliosis, apex at L3. SAGITTAL ALIGNMENT: Straightening of the normal lordosis. Subtle 2 mm degenerative retrolisthesis of L5 on S1. Alignment is otherwise normal. LUMBOSACRAL JUNCTION: Normal. There are 5 qqo-csa-juducki lumbar-type vertebral bodies. VERTEBRAL BODIES/BONE MARROW: There are no fractures or compression deformities. There are mild edematous type endplate changes present with superimposed fatty endplate changes at L2-3. There are minimal next edematous and fatty endplate changes present at L3-4 and L4-5. No abnormal infiltrating bone marrow signal. There are numerous Schmorl's nodes throughout the endplates. Postop changes as discussed above. DISCS: Severe loss of disc height and signal L4-5 and L5-S1 with disc vacuum phenomenon. Moderate to severe loss of height and signal at L2-3 and L3-4 with disc vacuum phenomenon. Mild loss of disc signal with minimal loss of height at L1-L2. SPINAL CANAL: -There is congenital spinal canal narrowing throughout the lumbar spine with short pedicles, findings which will exacerbate acquired spondylosis significantly. (Short pedicle syndrome) CONUS MEDULLARIS: -Terminates at superior endplate of L1. Morphology and signal is normal. INTRADURAL NERVE ROOTS: - Normal distribution without definite nerve root clumping or mass. No abnormal nerve root enhancement. -Mild dorsal and ventral thin dural enhancement at L2-3 and L4, likely secondary to postop changes and granulation tissue formation. Axial Disc Space Images: T12-L1: Trace disc bulging. Mild hypertrophic degenerative facet changes bilaterally. Minimal central canal narrowing congenitally. No significant subarticular recess narrowing or significant neural foraminal narrowing. No changes. L1-L2: Congenital spinal canal narrowing. There is a trace concentric disc bulge present. There are moderate hypertrophic degenerative facet changes bilaterally, with mild posterior ligamentous thickening/infolding. There is mild central canal stenosis, mild/moderate right greater than left subarticular recess stenosis, and mild bilateral neural foraminal stenosis right greater than left. No significant interval change. L2-L3: Congenital spinal canal narrowing. Left hemilaminotomy suspected at this level. There is a diffuse concentric disc bulge present extending into the bilateral foraminal zones, with a superimposed left lateral extrusion of disc material with mild superior migration. This extruded disc measures approximately 8 x 9 x 15 mm (AP, TRV, CC), (series 10, image 14; series 6, image 10). Moderate hypertrophic degenerative facet changes are present bilaterally, left greater than right. There is been stripping of the ligamentum flavum. There is severe central canal stenosis with central nerve root crowding and loss of CSF space. There is obliteration of the left lateral recess, with uncertain impingement of the traversing left L3 roots. There is severe right subarticular recess narrowing, with likely impingement of the traversing right L3 roots. There is severe left neural foraminal impingement. There is only mild right neural foraminal narrowing. Findings have all worsened at this level. L3-L4: Congenital spinal canal narrowing. Bilateral hemilaminotomies suspected. There is a diffuse concentric disc bulge present extending into the bilateral foraminal zones, with a superimposed irregular left paracentral and lateral extrusion of disc material (series 10, image 20; series 6, image 10). This extrusion measures approximately 9 x 11 x 11 mm. There are moderate to severe hypertrophic degenerative facet changes. There has been stripping of the ligamentum flavum. Combination of findings is resulting in severe central canal stenosis with central nerve root crowding, obliteration of both lateral recesses left greater than right with impingement of the traversing left greater than right L4 nerve roots. There is moderate to severe left and moderate right neural foraminal impingement. There has been worsening of findings at this level. L4-L5: Congenital spinal canal narrowing. Remote left hemilaminotomy, and possibly a right hemilaminotomy at. Shallow disc osteophytic ridge complex present, likely partially resected. There are residual disc osteophytic bulges and both foraminal zones left greater than right. There are moderate hypertrophic degenerative facet changes bilaterally. There is been partial stripping of the left ligamentum flavum. There is moderate central canal stenosis, moderate right and mild left subarticular recess stenosis, with possible mild impingement of the traversing right L5 nerve root. There is contact but no definite impingement of the traversing left L5 root. There is moderate to severe bilateral neural foraminal narrowing left greater than right. Cannot rule out mild impingement of the exiting left greater than right L4 nerve roots. Findings at this level appears similar to the prior exam. L5-S1: Congenital spinal canal narrowing. Prior right hemilaminectomy. There is a subtle degenerative retrolisthesis measuring 2 mm. Mild to moderate hypertrophic degenerative facet changes present. Shallow disc osteophytic ridge complex present concentrically, with a superimposed central disc extrusion, minimal inferior migration. This indents upon the ventral thecal sac but does not result in significant canal stenosis or nerve root impingement. There is been stripping of the right ligamentum flavum. There is mild to moderate narrowing of both subarticular recesses with contact but no definite impingement of the traversing S1 nerve roots bilaterally. There is severe left neural foraminal encroachment with likely mild impingement of the exiting left L5 root. There is mild to moderate right neural foraminal narrowing. Overall, findings appear unchanged at this level. IMAGED SI JOINTS: -Mild to moderate degenerative arthritis bilaterally. PARAVERTEBRAL AND INCLUDED EXTRASPINAL SOFT TISSUES: -No evidence of aortic aneurysm. Paravertebral and paraspinous soft tissues appear normal. MR/MR lumbar spine wo/w con IMPRESSION: 1. Congenital spinal canal narrowing throughout the lumbar spine with superimposed spondylosis as described. Extensive multilevel postoperative changes as described. 2. Worsening of central canal stenosis, lateral recess impingement, and neural foraminal stenosis at L2-3 and L3-4 predominantly with worsening left disc extrusions at these levels. See the body the report for details on individual levels. 3. Findings L1-2, L4-5, and L5-S1 have not significantly changed from the prior exam. Electronically signed by: Miguelito Scott MD 09/30/2024 08:52 AM EDT
--- OUTSIDE RECORDS SUMMARY | 2024-09-29 09:58 | XMS_ITS | Data Portability ---
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 Plan of Treatment [...] %) nasal spray 2024 025 arodrigues [address] [facility] #[id number], [address] [place], [address], 08/01/2024 12:14:50 Patient TargetsNo targets recorded. Patient Instructions Encounter Date Encounter Id Patient Instructions Last Modified By Organization Details Last Modified Time 07/11/2024 [id number] Note patient with chronic nasal obstruction for at least 1 year. He has been using dmou-vth-hqmavaq decongestant preparations several times per day. Examination shows a septal deviation of the right side limiting endoscopy but no evidence of polyps. Suggest warm saline irrigations twice daily followed by ipratropium bromide 2 sprays each nostril 3 times daily. I will have him dilute the oxymetazoline or which ever ydxp-hfl-abovkid decongestant preparation he is using 50% every [...] observ ation record ed. SATHISH [facility] [place] [address] [facility] [address], [place], [address], 08/17/2024 20:00:18 Result Notes None recorded. Problems Name Problem SNOMED Code Status Onset Date Resolution Date Notes Provider Name and Address Organization Details Recorded Time Bilateral tinnitus 90964057075 02 Active 2021 Tinnitus, bilateral ; Note: Date Diagnosed : 02/03/2022 3:11 PM (H93.13) Not Available [facility] 4 02:53:58 Disorder of smell 545840407 Active 2021 Other disturban kris of smell and taste; Note: Date Diagnosed : 02/03/2022 3:11 PM (R43.8) Not Available [facility] 4 02:54:02 Disorder of taste 782630514 Active 2021 Other disturban kris of smell and taste; Note: Date Diagnosed : 02/03/2022 3:11 PM (R43.8) Not Available [facility] 4 02:54:02 Sensorine ural hearing loss of bilateral ears 200017179 Active 2021 Sensorine ural hearing loss, bilateral ; Note: Date Diagnosed : 02/03/2022 3:11 PM (H90.3) Not Available [facility] 4 02:54:01 Deviated nasal septum 766254825 Active 2024 RIC ALBARADO MD [address] [facility],[place] [address], [place], [address] , [place] [facility] 5 14:49:05 Chronic rhinitis 90913373 Active 2024 RIC ALBARADO MD [address] [facility] [address], [place], [address] , [place] - [facility] 5 14:49:12 Vasomotor rhinitis 7742350 Active 2024 RIC ALBARADO MD [address] [facility],[place] [address], [place], [address] , [facility] - [facility] 5 14:49:16 Chronic sinusitis 22372879 Active 2024 RIC ALBARADO MD [address] [facility],[place] [address], [place], [address] , [facility] - [facility] 5 09:02:12 Problem Notes None recorded. Procedures Surgical History Date Name Laterality Status Provider Name and Address Organization Details Recorded Time JMSNasal/Sinus Endoscopy completed RIC CUTLER MD [address] [facility],[place] [address], [place], [address], [facility] - [facility] 07/11/2024 14:48:02 Imaging Results Imaging Date Name Status LastModified by Organ atformerly [facility], [facility] Details LastModified Time 08/15/2024 CT, maxillofacial , w/o contrast completed SATHISH [facility] [place] [address] [facility] [address], [place], [address], 08/17/2024 20:00:18 Procedure Notes None recorded. Medical Equipment None Reported. Medications Name Sig Start Date Stop Date Status Note LastModified by Organization Details LastModified Time fluconazo le 100 mg tablet TAKE 1 TABLET BY MOUTH EVERY DAY FOR 14 DAYS active Not Available Not Available No t Available methocarb alvarez 500 mg tablet 07/07 completed Medicati on ID: [id number] B rand Name: methocar bamol Se nd [...] mg tablet 07/07 completed Medicati on ID: [id number] B rand Name: meloxica m Send Method: E-Prescr ibed Sub s Allowed: subs [facility] melox[facility] Not Available [...] 325 mg tablet active Medicati on ID: [id number] B rand Name: hydrocod one-acet aminophe n [...] 10 mg tablet active Medicati on ID: [id number] B rand Name: hydroxyz ine HCl Send [...] Updated DateTime 07/11/2024 177.8 cm 28 kg/m2 93933.51 g Lea Sierra [place] - [facility] 07/11/2024 14:38:46 Social History None recorded. [...] Disorder N Anesthesia Complications N Heart Attack ([place]) N Other Skin Condition N Diabetes N Rhinitis N Bleeding Disorder N Food Allergy N Arthritis Y Hearing Loss Y Hyperlipidemia N Cancer N Stroke N Dementia N Nasal polyps Y Asthma N Sleep Disorder Y GERD/Reflux Y High Cholesterol Y Liver Disease N Headaches N Fibromyalgia N Hypertension Y Speech Delay N Kidney Disease N Past Encounters Encounter ID Performer Location Encounter Start Date Encounter Closed Date Diagnosis/Indication Diagnosis SNOMED-CT Code Diagnosis ICD10 Code Diagnosis Note [id number] RIC ALBARADO MD [facility] [address] [address] 07/11/2024 14:12:51 07/11/2024 14:52:00 Deviated nasal septum 103972109 J34.2 Chronic rhinitis 8480490 6 J31.0 Bilateral tinnitus 43813 86710 102 H93.13 f/u with [facility] Concerns Section Related Observation LastModified by Organization Detai ls LastModified Time None Recorded Concern Status LastModified by Organization Details LastModified Time None Recorded Advance Directives Directive None Recorded Payers Encounter Date Sequence Insurance Name Policy Number Policy Gunn Covered Member ID Gunn Member ID Guarantor Name 07/11/2024 1 [facility] - MEDICARE PREFERRED (MEDICARE REPLACEMENT HMO) [facility] Roni Willson [id number] Roni Willson 07/11/2024 2 [place] [facility] Roni Willson [id number] Roni Willson Notes Date Note Type Note [...] per day or more. RIC CUTLER MD [address] [place] [address], [address], [place] - [facility] 07/11/2024 14:51:18
--- OUTSIDE RECORDS SUMMARY | 2024-09-29 09:58 | XMS_ITS | Clinical Summary ---
Author Organization LL 175 [facility] Address [address] [place] [address] Phone Care Team Providers Care Corporate Statistical Financial Analyst Name Role Phone Gregg Todd MD Primary Care Provider [phone] Allergies No known active allergies Medications terbinafine (LamISIL) 250 mg tablet TAKE 1 TABLET BY MOUTH EVERY DAY 30 tablet 2 4 Active bictegravir-emtri citabine-tenofovi r alafenamide (Biktarvy) 50-200-25 mg per tablet Take 1 Tab by mouth daily. 0 Active doxycycline (VIBRAMYCIN) 100 mg capsule Take 100 mg by mouth daily. 2 Active FLUoxetine (PROzac) 20 mg capsule Take 1 capsule (20 mg total) by mouth 1 (one) time each day. 4 Active gabapentin (NEURONTIN) 600 mg tablet TAKE 2 TABLETS BY MOUTH EVERY MORNING, 2 TABLETS AT LUNCH AND 1 TABLET AT BEDTIME 1 Active HYDROcodone-aceta minophen (NORCO) 7.5-325 mg per tablet 1 TAB BY MOUTH EVERY 6 HOURS NEEDED FOR SEVERE PAIN 2 Active lidocaine (LIDODERM) 5 % patch 2 Active mupirocin (BACTROBAN) 2 % ointment APPLY SPARINGLY TO AFFECTED AREA(S) 3 TIMES A DAY 1 Active simvastatin (ZOCOR) 20 mg tablet TAKE 1 TABLET BY MOUTH EVERYDAY AT BEDTIME 4 Active tiZANidine (ZANAFLEX) 4 mg tablet TAKE 2 TABLETS BY MOUTH TWICE A DAY NEEDED FOR MUSCLE SPASMS 4 Active zolpidem (AMBIEN) 5 mg tablet TAKE 1 TABLET BY MOUTH EVERY DAY AT BEDTIME 1 Active omeprazole (PriLOSEC) [address] capsule TAKE 1 CAPSULE BY MOUTH EVERY DAY 90 capsule 1 4 Active fluticasone furoate (Arnuity Ellipta) 100 mcg/actuation blister with device inhaler Inhale 1 puff by mouth 1 (one) time each day. 1 each 11 5 06/30/19 26 Active beclomethasone dipropionate (Qvar RediHaler) 80 mcg/actuation HFA aerosol breath activated inhaler Inhale 2 puffs by mouth 2 (two) times a day. 3 each 3 5 07/01/19 26 Active fluticasone propionate (FLONASE) 50 mcg/actuation nasal spray USE 1 SPRAY INTO EACH NOSTRIL TWICE A DAY 48 mL 1 5 Active tamsulosin (FLOMAX) 0.4 mg 24 hr capsule TAKE 1 CAPSULE BY MOUTH 30 MINUTES AFTER SAME MEAL EVERY DAY. 90 capsule 1 5 Active meclizine (ANTIVERT) 25 mg tablet Take 1 tablet (25 mg total) by mouth 3 (three) times a day if needed for dizziness. 90 tablet 1 5 Active albuterol HFA (PROAIR HFA ; PROVENTIL HFA ; VENTOLIN HFA) 90 mcg/actuation inhalerIndication s:Chronic bronchitis, unspecified chronic bronchitis type (CMS/HCC V24, CMS/HCC V28) Inhale 2 puffs by mouth every 6 (six) hours if needed for wheezing. 1 each 5 08/30/19 26 Active Active Problems Problem Noted Date Diagnosed Date [...] the kidneys. He states he understands. Sacroiliitis ([facility] V24) 02/07/2022 Overview (04/25/2024): Last Assessment & Plan: Mr. Willson is being followed at [place] pain [facility] by Dr. Carreno where he [...] Encounters Date Type Department Care Team Description 09/28/2024 8:15 AM EDT Office Visit Internal Medicine [facility] [address] [phone] Gregg Todd MD Mild intermittent asthma without complication (Primary Dx); Current mild episode of major depressive disorder, unspecified whether recurrent (CMS/HCC V24); Hypercholesterolemia; Nail dystrophy 09/21/2024 3:48 PM EDT - 09/21/2024 6:51 PM EDT Emergency [facility] Emergency [address] [place] [address] Left flank pain (Primary Dx) Discharge Disposition: Home or Self Care 09/01/2024 6:58 AM EDT - 09/01/2024 11:59 PM EDT Hospital Encounter [facility] Ultrasound [address] [place] [address] LFT elevation Discharge Disposition: Home or Self Care 08/23/2024 9:00 AM EDT Office Visit Gastroenterology [facility] 175 [facility] 175 [facility] [address] [place] [phone] Alok Mccormack MD Hepatic hemangioma (Primary Dx); LFT elevation 07/25/2024 8:30 AM EST Office Visit Orthopedic Surgery [facility] 250 [address] [facility] [address] [place] [address] Norberto Arcos MD Left shoulder pain (Primary Dx) 07/14/2024 Telephone Internal Medicine - [place] 175 [facility] [address] [place] [address] Lia Bae MA Referral from Last 3 Months Immunizations Name Administration Dates Next Due DTaP (Infanrix) 6wks to less than 7yo 07/29/2012 Hepatitis A Adult (Havrix; V aqta) 19yo and older 08/10/2015 Hepatitis B (Yzuilft-C-Whhil , Recombivax HB-Adult) 19yo and older 02/20/2017,09/12/2016,08/15/2016 [...] lumbar disc HIV (human immunodeficiency virus infection) (CMS/HCC V24, CMS/HCC V28) 01/04/2019 DX:HIV (human im munodeficiency virus infection) (HCC) Hypertension 01/04/2019 DX:Hypertension Spinal stenosis, lumbar 02/02/2019 [...] Hypertension DX:Hypertension HIV (human immunodeficiency virus infection) ([facility] V24, [facility] V28) DX:HIV (human im munodeficiency virus infection) ([facility]) Anemia DX:Anemia Family History Medical History Relation Name Comments Bone cancer Brother Heart attack Father Heart failure Mother Relation Name Status Comments Brother Father Mother Social History Tobacco Use Types Packs/Day Years Used Date Smoking Tobacco: Never Smokeless Tobacco: Never Tobacco Cessation:Counseling Given: Not Answered Alcohol Use Standard Drinks/Week Comments Not Currently 0 (1 standard drink = 0.6 oz pur e alcohol) Housing Instability Answer Date Recorde d Are you worried that in the next 2 months you may not have stable housing? No 09/27/2024 Food Access & Nutrition Answer Date Rec orded Do you have access to a vari ety of food including fruits and vegetables? Yes 09/27/2024 Access to Healthcare Answer Date Record ed Within the last 3 months, ho w many times did you visit the emergency department for your medical care? 1 09/27/2024 Health Literacy Answer Date Recorded How often do you need to hav e someone help you when you read instructions, pamphlets, or other written material from your doctor or pharmacy? Sometimes 09/27/2024 Caregiver: How often do you need to have someone help you when you read instructions, pamphlets, or other written material from your doctor or pharmacy? Not on file 09/27/2024 Financial Risk Answer Date Recorded How hard is it for you to pa y for the very basics like food, housing, medical care, and air conditioning / heating? Somewhat hard 09/27/2024 Transportation Answer Date Recorded Has the lack of transportati on kept you from meetings, work, or from getting things needed for daily living? No Has the lack of transportati on kept you from medical appointments or from getting medications? No 09/27/2024 Social Isolation Answer Date Recorded How often do you feel lonely or isolated from those around you? Sometimes 09/27/2024 Food Risk Answer Date Recorded Within the past 12 months we worried whether our food would run out before we got money to buy more. Never true 09/27/2024 Within the past 12 months th e food we bought just didn't last and we didn't have money to get more. Never true 09/27/2024 Dependent Care Answer Date Recorded Do you need help finding or paying for care for your loved ones. For example, child nurse or elderly care for an older adult? No 09/27/2024 Education Answer Date Recorded Do you think completing more education or training, like finishing a GED, going to college, or learning a trade, would be helpful for you? No 09/27/2024 Employment and Income Answer Date Recor ded During the last four weeks, have you been actively looking for work? No 09/27/2024 Living Situation Answer Date Recorded What is your living situation? 0 09/27/2024 Sex and Gender Information Value Date Recorded Sex Assigned at Male 08/25/2024 11:41 AM EDT Legal Sex Male 3:16 PM EST Gender Identity Male 08/25/2024 11:41 AM EDT Sexual Orientation Straight 09/27/2024 9: 37 PM EDT Obstetrics History Last Filed Vital Signs Vital Sign Reading Time Taken Comments Blood Pressure 128/62 09/28/2024 8:18 AM EDT Pulse 60 09/28/2024 8:18 AM EDT Temperature 36.5 ??C (97.7 ??F) 09/28/2024 8:18 AM ED T Respiratory Rate 18 09/21/2024 6:48 PM EDT Oxygen Saturation 97% 09/28/2024 8:18 AM EDT Inhaled Oxygen Concentration - - Weight 88.7 kg (195 lb 9.6 oz) 09/28/2024 8:18 A M EDT Height 177.8 cm (5' 10 ) 09/21/2024 11:05 AM EDT Body Mass Index 28.07 09/21/2024 11:05 AM EDT Plan of Treatment Upcoming Encounters Date Type Department Care Team (Late st Contact Info) Description 12/08/2024 8:30 AM EDT Appointment [facility] Endoscopy [address] [place] [phone] Alok Mccormack MD [address] [address] 12/29/2024 8:45 AM EDT Office Visit Pulmonolgy - [address] [phone] Felicia Sparrow MD [address] [address] 03/30/2025 8:15 AM EDT Office Visit Internal Medicine - [address] [phone] Gregg Todd MD [address] [address] Health Maintenance Due Date Last Done Comments MMR Vaccines (1 of 2 - Risk 2-dose series) 02/28/1982 Pneumococcal Vaccine: 50+ Years (1 of 2 - PCV) 02/28/1983 Pneumococcal Vaccine: Pediatrics (0 to 5 Years) and At-Risk Patients (6 to 64 Years) (1 of 2 - PCV) 02/28/1983 Hepatitis A Vaccines (2 of 2 - Risk 2-dose series) 02/08/2016 08/10/2015 Meningococcal ACWY Vaccine (2 - Risk 2-dose series) 12/09/2018 10/14/2018 COVID-19 Vaccine (3 - Moderna risk series) 11/15/2020 10/18/2020, 09/20/2020 Medicare Annual Wellness Visit 05/24/2022 RSV Immunization Adult Patients (1 - Risk 60-74 years 1-dose series) 2024 Colorectal Cancer Screening: Colonoscopy 09/22/2024 09/22/2014 Influenza Vaccine (Season Ended) 2025 04/22/2021, 03/20/2020 Hypertension/CHF/CAD Annual BMP Blood Test 09/21/2025 09/21/2024, 08/23/2024, 04/27/2024, Additional history exists Depression Screening 09/27/2025 09/27/2024 Social Influencers of Health Screening 09/27/2025 09/27/2024 DTaP,Tdap,and Td Vaccines (3 - Td or [...] 20 months Aged Out No longer eligible based on patient's age to complete this topic Varicella Vaccines Aged Out No longer eligible based on patient's age to complete this topic Procedures Procedure Name Priority Date/Time Associated Diagnosis Comments CT ABDOMEN PELVIS WO CONTRAST STAT 09/21/2024 5:48 PM EDT MARTINEZ URINE CULTURE TUBE STAT 09/21/2024 4:12 PM EDT URINALYSIS WITH REFLEX MICROSCOPIC AND CULTURE STAT 09/21/2024 4:12 PM EDT URINALYSIS WITH REFLEX MICROSCOPIC AND CULTURE STAT 09/21/2024 4:12 PM EDT CBC WITH AUTO DIFFERENTIAL STAT 09/21/2024 11:11 AM EDT LIPASE STAT 09/21/2024 11:11 AM EDT COMPREHENSIVE METABOLIC PANEL STAT 09/21/2024 11:11 AM EDT CBC AND DIFFERENTIAL STAT 09/21/2024 11:11 AM EDT US ABDOMEN LIMITED Routine 09/01/2024 7: 28 AM EDT LFT elevation CBC WITH AUTO DIFFERENTIAL Routine 08/23/2024 9:33 AM EDT Elevated liver function tests Human immunodeficiency virus (HIV) disease (CMS/HCC V24, CMS/HCC V28) Obesity, unspecified LIPASE Routine 08/23/2024 9:33 AM EDT Elevated liver function tests Human immunodeficiency virus (HIV) disease (CMS/HCC V24, CMS/HCC V28) Obesity, unspecified THYROID STIMULATING HORMONE Routine 08/23/2024 9:33 AM EDT Elevated liver function tests Human immunodeficiency virus (HIV) disease (CMS/HCC V24, CMS/HCC V28) Obesity, unspecified Abnormal results of thyroid function studies AMYLASE Routine 08/23/2024 9:33 AM EDT Elevated liver function tests Human immunodeficiency virus (HIV) disease (CMS/HCC V24, CMS/HCC V28) Obesity, unspecified LIPID PANEL WITH REFLEX TO DIRECT LDL Routine 08/23/2024 9:33 AM EDT Elevated liver function tests Human immunodeficiency virus (HIV) disease (CMS/HCC V24, CMS/HCC V28) Obesity, unspecified COMPREHENSIVE METABOLIC PANEL Routine 08/23/2024 9:33 AM EDT Elevated liver function tests Human immunodeficiency virus (HIV) disease (CMS/HCC V24, CMS/HCC V28) Obesity, unspecified HEPATITIS B SURFACE ANTIGEN WITH CONFIRMATION Routine 08/23/2024 9:33 AM EDT Elevated liver function tests Human immunodeficiency virus (HIV) disease (CMS/HCC V24, CMS/HCC V28) Obesity, unspecified LYMPHOCYTE T-CELL PANEL Routine 08/23/2024 9:33 AM EDT Elevated liver function tests Human immunodeficiency virus (HIV) disease (CMS/HCC V24, CMS/HCC V28) Obesity, unspecified TREPONEMA PALLIDUM ANTIBODY WITH REFLEX TO RPR AND PARTICLE AGGLUTINATION Routine 08/23/2024 9:33 AM EDT Elevated liver function tests Human immunodeficiency virus (HIV) disease (CMS/HCC V24, CMS/HCC V28) Obesity, unspecified HIV 1 MOLECULAR STUDY QUANTITATIVE Routine 08/23/2024 9:33 AM EDT Elevated liver function tests Human immunodeficiency virus (HIV) disease (CMS/HCC V24, CMS/HCC V28) Obesity, unspecified CBC AND DIFFERENTIAL Routine 08/23/2024 9:33 AM EDT Elevated liver function tests Human immunodeficiency virus (HIV) disease (CMS/HCC V24, CMS/HCC V28) Obesity, unspecified HEPATITIS PANEL, ACUTE WITH REFLEX TO CONFIRMATION Routine 08/23/2024 9:33 AM EDT Elevated liver function tests IRON AND TIBC Routine 08/23/2024 9:33 AM EDT Elevated liver function tests XR SHOULDER 2+ VIEWS LEFT Routine 07/25/2024 9:10 AM EST Left shoulder pain HM COLONOSCOPY Routine 09/22/2014 from Last 3 Months or Most Recently Relevant to Health Maintenance Results * CT Abdomen Pelvis wo Contrast (09/21/2024 5:48 PM EDT) Anatomical Region Laterality Modality Body Computed Tomogra phy 09/21/2024 6:17 PM EDT Impressions 09/21/2024 6:17 PM EDT 1. No acute intraabdominal or pelvic pathology. This document has been electronically signed by: Darlene Rascon MD on 09/21/2024 18:17:37 Narrative 09/21/2024 6:17 PM EDT INDICATION: Flank pain, kidney stone suspected CT abdomen and pelvis without contrast Comparison: None Findings: Linear atelectasis/scarring in the lower lobes. Unremarkable gallbladder and solid organs. No hydronephrosis or urolithiasis. Colonic diverticulosis without acute inflammation. No bowel obstruction, pneumatosis or pneumoperitoneum. Aortic atherosclerosis. No aneurysm. Pelvic contents unremarkable. Normal appendix. The bones are intact. Degenerative changes of the spine. Procedure Note Darlene Rascon MD - 09/21/2024 INDICATION: Flank pain, kidney stone suspected CT abdomen and pelvis without contrast Comparison: None Findings: Linear atelectasis/scarring in the lower lobes. Unremarkable gallbladder and solid organs. No hydronephrosis or urolithiasis. Colonic diverticulosis without acute inflammation. No bowel obstruction, pneumatosis or pneumoperitoneum. Aortic atherosclerosis. No aneurysm. Pelvic contents unremarkable. Normal appendix. The bones are intact. Degenerative changes of the spine. IMPRESSION: 1. No acute intraabdominal or pelvic pathology. This document has been electronically signed by: Darlene Rascon MD on 09/21/2024 18:17:[address] PROCEDURES Una l Result * (ABNORMAL) Urinalysis with reflex microscopic and culture (09/21/2024 4:12 PM EDT) Specific [place] Urine 1.026 1.003 - 1.030 LAB URINALYSIS - AUTOMATED METHOD 09/21/2024 4:[address] [facility] pH, Urine 6.0 5.0 - 8.0 pH LAB URINALYSIS - AUTOMATED METHOD 09/21/2024 4:[address] [facility] Leukocytes, Urine Negative Negative LAB URINALYSIS - AUTOMATED METHOD 09/21/2024 4:20 PM [facility] Nitrite, Urine Negative Negative LAB URINALYSIS - AUTOMATED METHOD 09/21/2024 4:[address] [facility] Protein, Urine Trace <=Trace mg/dL LAB URINALYSIS - AUTOMATED METHOD 09/21/2024 4:20 PM [facility] Glucose, Urine Negative Negative mg/dL LAB URINALYSIS - AUTOMATED METHOD 09/21/2024 4:20 PM [facility] Ketones, Urine Trace(A) Negative mg/dL LAB URINALYSIS - AUTOMATED METHOD 09/21/2024 4:20 PM [facility] Urobilinogen, Urine 1.0 0.2 - 1.0 mg/dL LAB URINALYSIS - AUTOMATED METHOD 09/21/2024 4:20 PM [facility] Bilirubin, Urine Negative Negative LAB URINALYSIS - AUTOMATED METHOD 09/21/2024 4:20 PM [facility] Blood, Urine Negative Negative LAB URINALYSIS - AUTOMATED METHOD 09/21/2024 4:20 PM [facility] Urine Urine specimen obtained by clean catch procedure / Unknown Non-blood Collection / Unknown 09/21/2024 4:12 PM EDT 09/21/2024 4:14 PM EDT us Dione CARTER LAB URINE ORDERABLES F inal Result [facility] [address] [place] [address], * Martinez urine culture tube (09/21/2024 4:12 PM EDT) [facility] Extra Tube Hold for add-ons. 09/21/2024 6:[address] [facility] Comment:Auto resulted. Urine Urine specimen obtained by clean catch procedure / Unknown Non-blood Collection / Unknown 09/21/2024 4:12 PM EDT 09/21/2024 4:14 PM EDT Dione CARTER LAB URINE ORDERABLES F inal Result [facility] [address] [place] [address], * (ABNORMAL) CBC auto differential (09/21/2024 11:11 AM EDT) Only the most recent of2 resultswithin the time period is included. [facility] WBC 5.4 4.8 - 10.8 K/mcL LAB HEMETOLOGY METHOD 09/21/2024 12:00 PM [facility] RBC 4.70 4.50 - 5.50 M/[facility] LAB HEMETOLOGY METHOD 09/21/2024 12:00 PM [facility] Hemoglobin 14.0 13.5 - 17.5 g/dL LAB HEMETOLOGY METHOD 09/21/2024 12:00 PM [facility] Hematocrit 41.8(L) 42.0 - 54.0 % LAB HEMETOLOGY METHOD 09/21[facility]2024 [facility] MCV 89.7 79.0 - 98.0 FL LAB HEMETOLOGY METHOD 09/21/2024 12:00 PM [facility] MCH 30.0 27.0 - 32.0 pcg LAB HEMETOLOGY METHOD 09/21/2024 12:00 PM [facility] MCHC 33.5 32.0 - 37.0 g/dL LAB HEMETOLOGY METHOD 09/21/2024 12:00 PM [facility] RDW 13.4 11.0 - 15.0 % LAB HEMETOLOGY METHOD 09/21/2024 12:00 PM [facility] Platelets 211 130 - 400 K/mcL LAB HEMETOLOGY METHOD 09/21/2024 12:00 PM [facility] MPV 10.8 7.0 - 11.0 FL LAB HEMETOLOGY METHOD 09/21/2024 12:00 PM [facility] NRBC 0.0 <1.0 % LAB HEMETOLOGY METHOD 09/21/2024 12:00 PM [facility] NRBC Absolute 0.00 <0.10 K/mcL LAB HEMETOLOGY METHOD 09/21/2024 12:00 PM [facility] Neutrophils Relative 57.6 % LAB HEMETOLOGY METHOD 09/21/2024 12:00 PM [facility] Lymphocytes Relative 27.4 % LAB HEMETOLOGY METHOD 09/21/2024 12:00 PM [facility] Monocytes Relative 11.4 % LAB HEMETOLOGY METHOD 09/21/2024 12:00 PM [facility] Eosinophils Relative 3.0 % LAB HEMETOLOGY METHOD 09/21/2024 12:00 PM [facility] Basophils Relative 0.4 % LAB HEMETOLOGY METHOD 09/21/2024 12:00 PM [facility] Immature Granulocytes Relative 0.2 % LAB HEMETOLOGY METHOD 09/21/2024 12:00 PM [facility] Neutrophils Absolute 3.10 1.50 - 7.00 K/mcL LAB HEMETOLOGY METHOD 09/21/2024 12:00 PM [facility] Lymphocytes Absolute 1.47 1.00 - 5.00 K/mcL LAB HEMETOLOGY METHOD 09/21/2024 12:[address] [facility] Monocytes Absolute 0.61 0.20 - 1.00 K/mcL LAB HEMETOLOGY METHOD 09/21/2024 12:[address] [facility] Eosinophils Absolute 0.16 0.00 - 0.50 K/[facility] LAB HEMETOLOGY METHOD 09/21/2024 12:[address] [facility] Basophils Absolute 0.02 0.00 - 0.20 K/[facility] LAB HEMETOLOGY METHOD 09/21/2024 12:[address] [facility] Immature Granulocytes Absolute 0.01 0.00 - 0.03 K/[facility] LAB HEMETOLOGY METHOD 09/21/2024 12:[address] [facility] Blood Venous blood specimen / Unknown Venipuncture / Unknown 09/21/2024 11:11 AM EDT 09/21/2024 11:49 AM EDT us Baldomero Bates MD LAB BLOOD ORDERABLES Final Resu lt Performing Organization Address City/[facility]/ZIP Co de Phone Number [facility] [address] [place] [address], [place] [phone] * (ABNORMAL) Lipase (09/21/2024 11:11 AM EDT) Only the most recent of2 resultswithin the time period is included. Lipase 95(H) 13 - 75 unit/L LAB CHEMISTRY METHOD 09/21/2024 12:[address] [facility] Blood Venous blood specimen / Unknown Venipuncture / Unknown 09/21/2024 11:11 AM EDT 09/21/2024 11:49 AM EDT us Baldomero Bates MD LAB BLOOD ORDERABLES Final Resu lt [facility] [address] [place] [address], [place] [phone] * Comprehensive metabolic panel (09/21/2024 11:11 AM EDT) Only the most recent of2 resultswithin the time period is included. Sodium 141 133 - 145 mmol/L LAB CHEMISTRY METHOD 09/21/2024 1:06 PM [facility] Potassium 4.1 3.5 - 5.5 mmol/L LAB CHEMISTRY METHOD 09/21/2024 1:06 PM [facility] Chloride 107 96 - 110 mmol/L LAB CHEMISTRY METHOD 09/21/2024 1:06 PM [facility] CO2 26 21 - 32 mmol/L LAB CHEMISTRY METHOD 09/21/2024 1:06 PM [facility] Anion Gap 8 3 - 11 LAB CHEMISTRY METHOD 09/21/2024 1:06 PM [facility] Glucose 95 70 - 100 mg/dL LAB CHEMISTRY METHOD 09/21/2024 1:06 PM [facility] BUN 13 5 - 25 mg/dL LAB CHEMISTRY METHOD 09/21/2024 1:06 PM [facility] Creatinine 0.88 0.70 - 1.30 mg/dL LAB CHEMISTRY METHOD 09/21/2024 1:06 PM [facility] eGFR 98 >=60 mL/min/1. 73m2 LAB CHEMISTRY METHOD 09/21/2024 1:06 PM [facility] Comment:Calculation based on the??Chronic Kidney Disease Epidemiology Collaboration (CKD-EPI) equation refit??without adjustment for race. BUN/Creatinine Ratio 14.8 LAB CHEMISTRY METHOD 09/21/2024 1:06 PM [facility] Calcium 9.4 8.5 - 10.5 mg/dL LAB CHEMISTRY METHOD 09/21/2024 1:06 PM [facility] AST (SGOT) 39 10 - 42 unit/L LAB CHEMISTRY METHOD 09/21/2024 1:[address] [facility] ALT (SGPT) 46 10 - 60 unit/L LAB CHEMISTRY METHOD 09/21/2024 1:[address] [facility] Alkaline Phosphatase 85 42 - 121 unit/L LAB CHEMISTRY METHOD 09/21/2024 1:[address] [facility] Total Protein 6.8 6.0 - 8.0 g/dL LAB CHEMISTRY METHOD 09/21/2024 1:[address] [facility] Albumin 3.8 3.2 - 5.0 g/dL LAB CHEMISTRY METHOD 09/21/2024 1:[address] [facility] Total Bilirubin 0.6 0.0 - 1.4 mg/dL LAB CHEMISTRY METHOD 09/21/2024 1:[address] [facility] Blood Venous blood specimen / Unknown Venipuncture / Unknown 09/21/2024 11:11 AM EDT 09/21/2024 11:49 AM EDT us Baldomero Bates MD LAB BLOOD ORDERABLES Final Resu lt [facility] [address] [place] [address], [place] [phone] * [place] Abdomen Limited (09/01/2024 7:28 AM EDT) Anatomical Region Laterality Modality Body Ultrasound 09/01/2024 8:48 AM EDT Impressions 09/01/2024 9:07 AM EDT Evaluation limited by poor sonographic windows. ??No visible abnormality. -------- FINAL REPORT -------- Dictated By: Amari Beach Dictated Date: 09/01/2024 08:48 ET Assigned Physician: Amari Beach Reviewed and Electronically Signed By: Amari Beach Signed Date: 09/01/2024 09:07 ET Workstation ID: [id number] Transcribed By: Self Edit Transcribed Date: 09/01/2024 [...] Signed Date: 09/01/2024 09:07 ET Workstation ID: [id number] Transcribed By: Self Edit Transcribed Date: 09/01/2024 08:48 ET us Alok Mccormack MD [facility] US PROCEDURES Final Result * [...] ORDERABLES Una l Result Performing Organization Address [facility]/ZIP Co de Phone Number [facility] [address] [place] [address], [place] [phone] * Treponema pallidum antibody with reflex to RPR and particle agglutination (08/23/2024 9:33 AM EDT) [facility] T. Pallidum Antibodies Negative Negative LAB CHEMISTRY METHOD 08/23/2024 11:[address] [facility] Blood Venous blood specimen / Unknown Venipuncture / Unknown 08/23/2024 9:33 AM EDT 08/23/2024 10:35 AM EDT Юлия Angel MD LAB BLOOD ORDERABLES Una l Result Performing Organization Address City/[facility]/ZIP Co de Phone Number [facility] [address] [place] [address], [place] [phone] * (ABNORMAL) Lipid panel with reflex to direct LDL (08/23/2024 9:33 AM EDT) [facility] Cholesterol 210(H) 0 - 200 mg/dL [...] Юлия Angel MD LAB BLOOD ORDERABLES Una toavr Result [facility] [address] [place] [address], * Hepatitis panel, acute with reflex to [...] MD LAB BLOOD ORDERABLES Final Resul t [facility] [address] [place] [address], [place] [phone] * Iron and TIBC (08/23/2024 9:33 AM [...] MD LAB BLOOD ORDERABLES Final Resul t [facility] [address] [place] [address], [place] [phone] * Lymphocyte T-cell panel (08/23/2024 9:33 AM EDT) CD4 671 426 - 1,776 cells/mcL 08/25/2024 7:03 AM EDT [facility] CD8 300 161 - 838 cells/mcL 08/25/2024 7:03 AM EDT [facility] CD4/CD8 Ratio 2.24 0.90 - 4.90 08/25/2024 7:03 AM EDT [facility] CD4 % 45 33 - 64 % 08/25/2024 7:03 AM EDT [facility] CD8 % 20 10 - 39 % 08/25/2024 7:03 AM EDT [facility] Blood Venous blood specimen / Unknown Venipuncture / Unknown 08/23/2024 9:33 AM EDT 08/23/2024 10:41 AM EDT us Юлия Angel MD LAB MOLECULAR DIAGNOSTICS ORDERABLES Final Result [facility] [address] [place] [address], [place] [phone] * (ABNORMAL) HIV 1 molecular study quantitative (08/23/2024 9:33 AM EDT) [facility] HIV-1 RNA Interpretation Detected (A) Not [...] 9:33 AM EDT 08/23/2024 10:42 AM EDT us Юлия Angel MD LAB BLOOD ORDERABLES Una l Result [facility] [address] [place] [address], [place] [phone] * Thyroid stimulating hormone (08/23/2024 9:33 AM EDT) [facility] TSH 2.20 0.40 - 4.00 mcIU/mL LAB CHEMISTRY METHOD 08/23/2024 11:[address] [facility] Blood Venous blood specimen / Unknown Venipuncture / Unknown 08/23/2024 9:33 AM EDT 08/23/2024 10:35 AM EDT Юлия Angel MD LAB BLOOD ORDERABLES Una l Result Performing Organization Address [facility] Co de Phone Number [facility] [address] [place] [address], [place] [phone] * (ABNORMAL) Amylase (08/23/2024 9:33 AM EDT) [facility] Amylase 211(H) 25 - 115 unit/L LAB CHEMISTRY METHOD 08/23/2024 11:[address] [facility] Blood Venous blood specimen / Unknown Venipuncture / Unknown 08/23/2024 9:33 AM EDT 08/23/2024 10:35 AM EDT Юлия Angel MD LAB BLOOD ORDERABLES Una l Result Performing Organization Address [facility] de Phone Number [facility] [address] [place] [address], [place] [phone] * XR Shoulder 2+ Views Left (07/25/2024 [...] Most Recently Relevant to Health Maintenance Insurance [facility] MEDICARE ADVANTAGE MEDICAID - [place] Care Teams Corporate Statistical Financial Analyst Relationship Specialty Start Date End Date Gregg Todd MD 175 [facility] [address] [place] [address] PCP - General Internal Medicine 04/17/21
--- OUTSIDE RECORDS SUMMARY | 2024-09-29 09:58 | XMS_ITS | Encounter Summary ---
Author Organization [facility] Address [address] [place] [address] Care Team Providers Care Transportation Coordinator Name Role Phone Gregg Todd MD Primary Care Provider Reason for Referral * Consultation (Routine) - Pending Review Specialty Diagnoses / Procedures Referred By Addison ontiveros Referred To Contact Dermatology Diagnoses Nail dystrophy Gregg Todd MD [address] [address] Phone: tel: fax: Referral ID Status Reason Start Date Expiration Date Visits Requested Visits Authorized [id number] Pending Review Specialty Services Required 09/28/2024 09/28/2025 1 1 Reason for Visit * Reason Comments Follow-up Encounter Details Date Type Department Care Team ([facility] st Contact Info) Description 09/28/2024 8:15 AM EDT Office Visit Internal Medicine - [place] [address] [phone] Gregg Todd MD [address] [address] Mild intermittent asthma without complication (Primary Dx); Current mild episode of major depressive disorder, unspecified whether recurrent (CMS/HCC V24); Hypercholesterolemia; Nail dystrophy Social History Tobacco Use Types Packs/Day Years [...] for your loved ones. For example, child care assistant or elderly care for an older adult? [...] Orientation Straight 09/27/2024 9: 37 PM EDT documented as of this encounter Last Filed Vital Signs Vital Sign Reading Time Taken Comments Blood Pressure 128/62 09/28/2024 8:18 AM EDT Pulse 60 09/28/2024 8:18 AM EDT Temperature 36.5 ??C (97.7 ??F) 09/28/2024 8:18 AM ED T Respiratory Rate - - Oxygen Saturation 97% 09/28/2024 8:18 AM EDT Inhaled Oxygen Concentration - - Weight 88.7 kg (195 lb 9.6 oz) 09/28/2024 8:18 A M EDT Height - - Body Mass Index 28.07 09/21/2024 11:05 AM EDT documented in this encounter Functional Status * Are you deaf or do you have serious difficulty hearing? Answer Date of Assessment Author No 09/21/2024 3:51 PM EDT Jennifer Alex RN * Are you blind or do you have serious difficulty seeing, even when wearing glasses? Answer Date of Assessment Author No 09/21/2024 3:51 PM EDT Jennifer Alex RN * Do you have serious difficulty walking or climbing stairs? Answer Date of Assessment Author No 09/21/2024 3:51 PM EDT Jennifer Alex RN * Do you have serious difficulty dressing or bathing? Answer Date of Assessment Author No 09/21/2024 3:51 PM EDT Jennifer Alex RN * Because of a physical, mental, or emotional condition, do you have serious difficulty doing errandsalone such as visiting the doctor? Answer Date of Assessment Author No 09/21/2024 3:51 PM EDT Jennifer Alex RN documented as of this encounter Mental Status * Because of a physical, mental, or emotional condition, do you have serious difficulty concentrating, remembering, or making decisions? (5 years old or older) Answer Entry Date Author No 09/21/2024 3:51 PM EDT Jennifer Alex RN documented in this encounter Progress Notes * Gregg Todd MD - 09/28/2024 8:15 AM EDT COMPLAINT medication review and testing. IDENTIFIER: Roni Willson is a 59 y.o. old male. HPI: Hyperlipidemia stable. Asthma is under control. Anxiety stable. ROS: GENERAL: No malaise, significant weight loss or fever RESPIRATORY: No cough, wheezing or shortness of breath CARDIOVASCULAR: No chest pain, leg swelling or palpitations GI: No abdominal discomfort, blood in stools or black stools PAST MEDICAL HISTORY: Patient Active Problem List Diagnosis Date Noted LFT elevation 08/23/2024 Shortness of breath on exertion 08/13/2022 Sacroiliitis (CMS/HCC V24) 02/07/2022 Chronic shoulder pain 07/25/2019 Hiatal hernia [...] PROCEDURE: HISTORICAL LUMB LAMINECTOMY; COMMENT: L2-3 partial SOCIAL HISTORY: Social History Tobacco Use Smoking status: Never Smokeless tobacco: Never Substance Use Topics Alcohol use: Not Currently FAMILY HISTORY: Family History Problem Relation Name Age of Onset Heart failure Mother Heart attack Father Bone cancer Brother MEDICATIONS DISCONTINUED/REORDERED: There are no discontinued medications. ACTIVE MEDICATIONS: Outpatient Medications Marked as Taking for the 09/28/24 encounter (Office Visit) with Gregg Todd MD Medication Sig Dispense Refill albuterol HFA (PROAIR HFA ; PROVENTIL HFA ; VENTOLIN HFA) 90 mcg/actuation inhaler Inhale 2 puffs by mouth every 6 (six) hours if needed for wheezing. 1 each 11 beclomethasone dipropionate (Qvar RediHaler) 80 mcg/actuation HFA aerosol breath activated inhaler Inhale 2 puffs by mouth 2 (two) times a day. 3 each 3 srjjqjjdtlj-pphihdidgzltr-gpngmlrxb alafenamide (Biktarvy) 50-200-25 mg per tablet Take 1 Tab by mouth daily. doxycycline (VIBRAMYCIN) 100 mg capsule Take 100 mg by mouth daily. FLUoxetine (PROzac) 20 mg capsule Take 1 capsule (20 mg total) by mouth 1 (one) time each day. fluticasone furoate (Arnuity Ellipta) 100 mcg/actuation blister with device inhaler Inhale 1 puff by mouth 1 (one) time each day. 1 each 11 fluticasone propionate (FLONASE) 50 mcg/actuation nasal spray USE 1 SPRAY INTO EACH NOSTRIL TWICE ADAY 48 mL 1 gabapentin (NEURONTIN) 600 mg tablet TAKE 2 TABLETS BY MOUTH EVERY MORNING, 2 TABLETS AT LUNCH AND 1 TABLET AT BEDTIME HYDROcodone-acetaminophen (NORCO) 7.5-325 mg per tablet 1 TAB BY MOUTH EVERY 6 HOURS NEEDED FOR SEVERE PAIN lidocaine (LIDODERM) 5 % patch meclizine (ANTIVERT) 25 mg tablet Take 1 tablet (25 mg total) by mouth 3 (three) times a day if needed for dizziness. 90 tablet 1 mupirocin (BACTROBAN) 2 % ointment APPLY SPARINGLY TO AFFECTED AREA(S) 3 TIMES A DAY omeprazole (PriLOSEC) [address] capsule TAKE 1 CAPSULE BY MOUTH EVERY DAY 90 capsule 1 simvastatin (ZOCOR) 20 mg tablet TAKE 1 TABLET BY MOUTH EVERYDAY AT BEDTIME tamsulosin (FLOMAX) 0.4 mg 24 hr capsule TAKE 1 CAPSULE BY MOUTH 30 MINUTES AFTER SAME MEAL EVERY DAY. 90 capsule 1 terbinafine (LamISIL) 250 mg tablet TAKE 1 TABLET BY MOUTH EVERY DAY 30 tablet 2 tiZANidine (ZANAFLEX) 4 mg tablet TAKE 2 TABLETS BY MOUTH TWICE A DAY NEEDED FOR MUSCLE SPASMS zolpidem (AMBIEN) 5 mg tablet TAKE 1 TABLET BY MOUTH EVERY DAY AT BEDTIME ALLERGIES: No Known Allergies PHYSICAL EXAM: Vitals: 09/28/2418 BP: 128/62 Pulse: 60 Temp: 36.5 ??C (97.7 ??F) SpO2: 97% APPEARANCE: Alert and in no acute distress EARS: External ears normal. HEART: RRR with normal S1 and S2, no murmurs LUNG: clear to auscultation LABS: Lab Results Component Value Date WBC 5.4 09/21/2024 HGB 14.0 09/21/2024 HCT 41.8 (L) 09/21/2024 MCV 89.7 09/21/2024 Lab Results Component Value Date NA 141 09/21/2024 K 4.1 09/21/2024 CO2 26 09/21/2024 CL 107 09/21/2024 BUN 13 09/21/2024 ALKPHOS 85 09/21/2024 Lab Results Component Value Date TSH 2.20 08/23/2024 Lab Results Component Value Date CHOL 210 (H) 08/23/2024 LDL 108 (A) 09/29/2023 HDL 58 08/23/2024 TRIG 154 (H) 08/23/2024 No components found for: URINELEUK , URINENITR , URINEPRO , URINEPH , URINEBLD , URINESG , URINEKET , URINEBILI , URINEGLUC IMAGING: IMPRESSION: 1. Mild intermittent asthma without complication CBC and differential Comprehensive metabolic panel Lipid panel with reflex to direct LDL Thyroid stimulating hormone 2. Current mild episode of major depressive disorder, unspecified whether recurrent (CMS/HCC V24) CBC and differential Comprehensive metabolic panel Lipid panel with reflex to direct LDL Thyroid stimulating hormone 3. Hypercholesterolemia CBC and differential Comprehensive metabolic panel Lipid panel with reflex to direct LDL Thyroid stimulating hormone 4. Nail dystrophy Ambulatory referral to Dermatology PLAN: Asthma is under control on Arnuity inhaler. hyperlipidemia ,stable on Zocor. Anxiety is under control. Check CBC, CMP, TSH, lipid panel. Has essential tremor, observation. dystrophic finger on the right side .toe nails are not better with Lamisil. 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 Labs done recently whenhe was in the ER due to back pain showed mild elevation in lipase ,otherwise CT scan was normal. Noabdominal pain. documented in this encounter Plan of Treatment Upcoming Encounters Date Type Department Care Team (Late st Contact Info) Description 12/08/2024 8:30 AM EDT Appointment [facility] [address] [place] [id number] Alok Mccormack MD [address] [address] 12/29/2024 8:45 AM EDT Office Visit Pulmonolgy - [place] [address] [phone] Felicia Sparrow MD [address] [address] 03/30/2025 8:15 AM EDT Office Visit Internal Medicine - [place] [address] [phone] Gregg Todd MD [address] [address] Scheduled Orders Name Type Priority Associated Diagnoses Orde r Schedule CBC and differential Lab Routine Current mild episode of major depressive disorder, unspecified whether recurrent ([facility] V24) Hypercholesterolemia Mild intermittent asthma without complication 1 Occurrences starting 09/28/2024 until 09/28/2025 Comprehensive metabolic panel Lab Routine Current mild episode of major depressive disorder, unspecified whether recurrent ([facility] V24) Hypercholesterolemia Mild intermittent asthma without complication 1 Occurrences starting 09/28/2024 until 09/28/2025 Lipid panel with reflex to direct LDL Lab Routine Current mild episode of major depressive disorder, unspecified whether recurrent ([facility] V24) Hypercholesterolemia Mild intermittent asthma without complication 1 Occurrences starting 09/28/2024 until 09/28/2025 Thyroid stimulating hormone Lab Routine Current mild episode of major depressive disorder, unspecified whether recurrent ([facility] V24) Hypercholesterolemia Mild intermittent asthma without complication 1 Occurrences starting 09/28/2024 until 09/28/2025 Scheduled Referrals Name Type Priority Associated Diagnoses Order Schedule Ambulatory referral to Dermatology Outpatient Referral Routine Nail dystrophy 1 Occurrences starting 09/28/2024 until 09/28/2025 documented as of this encounter Visit Diagnoses Diagnosis Mild intermittent asthma without complication- Primary Current mild episode of major depressive disorder, unspecified whether recurrent (CMS/HCC V24) Hypercholesterolemia Pure hypercholesterolemia Nail dystrophy Other specified disease of nail documented in this encounter Additional Health Concerns Assessment Noted Time PHQ-9 Depression Total Score: 10 025 9:46 PM EDT documented as of this encounter Care Teams Transportation Coordinator Relationship Specialty Start Date End Date Gregg Todd MD 175 [place] [address] PCP - General Internal Medicine 04/17/21 documented as of this encounter
--- OUTSIDE RECORDS SUMMARY | 2024-09-29 09:58 | XMS_ITS | Clinical Summary ---
Author Organization [facility] Address [address] [place] [address] Care Team Providers Care Satin Finisher Name Role Phone Gregg Todd MD Primary [...] age to complete this topic Care Teams Satin Finisher Relationship Specialty Start Date End Date Gregg Todd MD PCP - General Internal Medicine 06/29/23
[2024-09-29] MEDS: gadobutroL 10 ML VIAL IVPUSH (10:39)
== END 2024-09-29 09:06 | disposition home or self-care (01) ==
LOC: HO.MRI 09:05
PROVIDERS: PCP Internal Medicine; Visit Provider Internal Medicine
DX: M54.16 Radiculopathy, lumbar region (principal); M48.061 Spinal stenosis, lumbar region without neurogenic claudication
CPT/HCPCS: 72158; A9585

== ENCOUNTER → 2024-09-29 09:12 | Outpatient (BNV) | payer MEDICARE, MEDICAID, SELFPAY | PROVIDERS: PCP Internal Medicine; Visit Provider Radiology Diagnostic Radiology | DX: M47.896 Other spondylosis, lumbar region (principal); M48.062 Spinal stenosis, lumbar region with neurogenic claudication | CPT/HCPCS: 72158 ==

== ENCOUNTER 2024-10-24 08:43 | Outpatient (AMB) | payer MEDICARE, MEDICAID, SELFPAY ==
--- NOTE | 2024-10-24 08:44 | MHC.OFFVIS ---
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: No Allergies No Known Allergies Allergy (Verified 10/24/24 08:46) Medication List - Last Reconciled 10/24/24 by Loida Louie LPN albuterol sulfate 90 mcg/actuation 2 puffs inhalation Q6H PRN alprazolam 0.5 mg PO TID PRN wdvaiweos-ilygdiep-eowisgs ala 50-200-25 mg (Biktarvy) 1 tab PO DAILY celecoxib 100 mg PO BID PRN chlorhexidine gluconate 0.12% 15 mL PO BID doxycycline hyclate 100 mg PO DAILY ferrous sulfate 324 mg PO 3XW fluoxetine 20 mg PO DAILY fluticasone propionate 50 mcg/actuation 1 spray intranasal BID gabapentin 600 mg PO QID hydrocodone-acetaminophen 5-325 mg 1 tab PO Q4-6H PRN lidocaine 5% 1 patch topical DAILY 30 days meclizine 25 mg PO DAILY PRN mupirocin 2% topical DAILY naloxone 4 mg/actuation (Narcan) 4 mg intranasal Q2M PRN omeprazole 40 mg PO DAILY simvastatin 20 mg PO BEDTIME terbinafine HCl 250 mg PO DAILY zolpidem 5 mg PO BEDTIME PRN HPI HPI Pill Count/random UDS: Details: History of Present Illness The patient is a 59-year-old male presenting for a follow-up visit concerning lumbar disc herniations and knee pain. He has a long-standing history of lumbar spine issues requiring multiple surgeries, with the most recent focusing on decompression and addressing herniations causing nerve compression at levels L2-3 and L3-4. These ongoing issues entail symptoms of pain and limitation in movement, accompanied by spinal stenosis, which compromises his functional status. Regarding his knee, the patient has osteoarthritis with symptoms exacerbated recently by physical activity. The knee shows swelling and pain, particularly when engaging in specific movements. The patient's musculoskeletal problems persist, fostering discussions about appropriate interventions to alleviate symptoms and improve his quality of life. Pain Description - Onset and Timing: Chronic low back pain dating back approximately 30 years, knee pain exacerbated two weeks ago. - Quality and Character: Deep, aching pain in the lower back; swelling and sharp pain in the knee. - Primary Location: Lumbar region, left knee. - Radiation: Not explicitly discussed. - Exacerbating Factors: Physical activity, working in the garden. - Relieving Factors: Application of ice and compression for the knee. - Functional Interference: Difficulty in mobility, especially while performing activities such as climbing stairs and crossing legs. Physical Exam - Musculoskeletal- Swelling noted on the left knee and discomfort upon leg crossing. Results - Tests and Diagnostics: MRI completed on September 28 indicating lumbar disc herniations at L2-3 and L3-4 with central stenosis. Pain Management - Affect: Pain impacts patient?s engagement in daily activities and comfort. - Analgesia: Vicodin prescribed, with discussion of future use of possible injections if current treatment proves ineffective. Goal to reduce acute pain. - Adverse Effects: None reported from current analgesic regime. - Activities of Daily Living: Difficulty reported during routine activities such as bending, knee bending, and working. - Aberrant Drug Related Behaviors: No behaviors suggestive of misuse or abuse were reported or discussed. Physical Exam Vital Signs: Last Vital Signs Pulse 63 10/24/24 08:45 Resp 16 10/24/24 08:45 BP 129/82 10/24/24 08:45 Pulse Ox 99 10/24/24 08:45 Oxygen Delivery Method Room Air 10/24/24 08:45 BMI result Body Mass Index 28.1 Assessment & Plan Assessment & Plan (1) Lumbar radiculitis: Code(s): M54.16 - Radiculopathy, lumbar region Category: Medical (2) Failed back syndrome: Code(s): M96.1 - Postlaminectomy syndrome, not elsewhere classified Category: Medical Plan Plan - Referral to neurosurgery for evaluation regarding discectomy and potential fusion. - Continue medication regimen, prescribing Vicodin as needed with follow-up for efficacy and adverse effects. Pills counted and consistent. - Manage knee pain with conservative measures, including icing, compression, and gentle stretching with a review for potential steroidal interventions if healing is suboptimal after several weeks. - Schedule regular follow-up visits to evaluate the progression of symptoms and treatment effectiveness. Patient was informed and verbally consented to the use of an ambient scribe for clinic note documentation during this visit. Discussion Notes I discussed with the patient the nature of his lumbar spine issues, including current MRI findings and their implications for future care. We talked about potential surgical interventions, specifically discectomy and spinal fusion, including potential risks and outcomes associated with such procedures. The ongoing management of knee osteoarthritis was also addressed, recommending conservative measures like icing and compression. I advised the patient to monitor symptoms and follow up appropriately. Patient Instructions - Apply ice and compression to your knee regularly to help with pain and swelling. - Engage in gentle knee stretching exercises. - Take prescribed Vicodin as directed for pain management. - Follow up with the neurosurgery department as advised to discuss surgical options. - Report any worsening symptoms or new concerns immediately. - Reassess knee pain after 4-6 weeks for possible steroid injections if no improvement. Medications: Refilled hydrocodone-acetaminophen 5-325 mg Partial Fill upon patient request. 1 tab PO Q4-6H PRN 180 tabs 0RF pain Coding Level of Care Code Est Pt Level 3 (84232) Diagnoses Lumbar radiculitis M54.16 Failed back syndrome M96.1
[2024-10-24 08:45] VITALS: BP 129/82; PULSE 63; RESP 16; O2SAT 99; BMI 28.1
--- OUTSIDE RECORDS SUMMARY | 2024-10-24 08:46 | XMS_ITS | Data Portability ---
Author Organization [place] - [facility], Allergy Address [address] [address] Care Team Providers Care Commissioning Agent Name Role Phone HARIKA HOLLINS Primary Care Provider Assessment No assessment recorded. Plan of Treatment Reminders Order Date Submit Date Provider Last Modified By Organization Details Last Modified Time Details Appointments Hearing Test 2025 09:00A M Hearing Test Not available Not available Not available Establish ed 30 2025 09:30A M RIC DIAL MD Not available Not available Not available Lab None recorded. Referral None recorded. Procedures None recorded. Surgeries None recorded. Imaging None recorded. Medication Orders ipratropi um bromide 21 mcg (0.03 %) nasal spray 2024 025 [email or web address] [id number], [address] [place], [address], 10/12/2024 11:09:37 Patient TargetsNo targets recorded. Patient Instructions Encounter Date Encounter Id Patient Instructions Last Modified By Organization Details Last Modified Time 07/11/2024 [id number] Note patient with chronic nasal obstruction for at least 1 year. He has been using dhna-iag-pbvgenj decongestant preparations several times per day. Examination shows a septal deviation of the right side limiting endoscopy but no evidence of polyps. Suggest warm saline irrigations twice daily followed by ipratropium bromide 2 sprays each nostril 3 times daily. I will have him dilute the oxymetazoline or which ever hhmt-fyz-fkznupe decongestant preparation he is using 50% every [...] observ ation record ed. SATHISH [facility] [address] [facility] [address], [place], [address], 08/17/2024 20:00:18 10/13/19 audio gram No observ ation record ed. BARCODE Not Available 2024 12:44:59 Result Notes None recorded. Problems Name Problem SNOMED Code Status Onset Date Resolution Date Notes Provider Name and Address Organization Details Recorded Time Bilateral tinnitus 55199665490 02 Active 2021 Tinnitus, bilateral ; Note: Date Diagnosed : 02/03/2022 3:11 PM (H93.13) Not Available [facility] 4 02:53:58 Disorder of smell 858649915 Active 2021 Other disturban kris of smell and taste; Note: Date Diagnosed : 02/03/2022 3:11 PM (R43.8) Not Available [facility] 4 02:54:02 Disorder of taste 678951010 Active 2021 Other disturban kris of smell and taste; Note: Date Diagnosed : 02/03/2022 3:11 PM (R43.8) Not Available [facility] 4 02:54:02 Sensorine ural hearing loss of bilateral ears 271035352 Active 2021 Sensorine ural hearing loss, bilateral ; Note: Date Diagnosed : 02/03/2022 3:11 PM (H90.3) Not Available [facility] 4 02:54:01 Deviated nasal septum 268118211 Active 2024 RIC ALBARADO MD [address] [place] [address], [place], [address] , [facility] - [facility] 5 11:16:48 Chronic rhinitis 85419374 Active 2024 RIC ALBARADO MD [address] [place], [place] [address]on [place],[facility] [address], [place], [address] , [place] - [facility] 14:49:12 Vasomotor rhinitis 9677127 Active 2024 RIC ALBARADO MD [address] [facility] [place] [address], [place], [address] , [place] - [facility] 14:49:16 Chronic sinusitis 09850203 Active 2024 RIC ALBARADO MD [address] [facility] [address], [place], [address] , [place] - [facility] 09:02:12 Nasal congestio n 60441309 Active 2024 RIC ALBARADO MD 100 [facility] [address], [place], [address] , [place] - [facility] 11:16:52 Problem Notes None recorded. Procedures Surgical History Date Name Laterality Status Provider Name and Address Organization Details Recorded Time Air & Speech Audio with Tymps - 32822, 83573 & 66295 completed LATESHA SÁNCHEZ MA, CCC-A [address] [facility],[place] [address], [place], [address], [place] - [facility] 10/12/2024 11:00:09 JMSNasal/Sinus Endoscopy completed RIC CUTLER MD 100 [facility] [address], [place], [address], [place] - [facility] 07/11/2024 14:48:02 Imaging Results Imaging Date Name Status LastModified by Organiz ation Details LastModified Time 08/15/2024 CT, maxillofacial, w/o contrast completed SATHISH [facility] [address] [facility] [address], [place], [address], 08/17/2024 20:00:18 10/12/2024 audiogram completed BARCODE Information no t available 10/12/2024 12:44:59 Procedure Notes None recorded. Medical Equipment None Reported. Allergies No known drug allergies Medications Name Sig Start Date Stop Date Status Note LastModified by Organization Details LastModified Time fluconazo le 100 mg tablet TAKE 1 TABLET BY MOUTH EVERY DAY FOR 14 DAYS 10/12 completed Not Available Not Available Not Available methocarb alvarez 500 mg tablet 07/07 completed Medicati on ID: [id number] B rand Name: methadelita bamol Se nd Method: E-Prescr ibed Sub s Allowed: subs OK [facility] : methocar bamol Not Available Not Available Not Available nystatin 100,000 unit/mL oral suspensio n RINSE WITH 4 TO 6 ML IN MOUTH 4 TIMES A DAY 10/12 completed Not Available Not Available Not Available gabapenti n 600 mg tablet TAKE 1 TABLET BY MOUTH FOUR TIMES A DAY FOR PAIN active Not Available Not Available No t Available doxycycli ne hyclate 100 mg capsule TAKE 1 CAPSULE BY MOUTH EVERY DAY 10/12 completed Not Available Not Available Not Available tizanidin e 4 mg tablet TAKE [...] TABLET EVERY DAY BY MOUTH, FOR THRUSH. 10/12 completed Not Available Not Available Not Available omeprazol e 40 mg capsule,d elayed release TAKE 1 CAPSULE BY MOUTH EVERY DAY active Not Available Not Available No t Available meloxicam 7.5 mg tablet 07/07 completed Medicati on ID: [id number] B rand Name: meloxica m Send Method: E-Prescr ibed Sub s Allowed: subs OK [facility] meloxica m Not Available Not Available Not Available oxycodone -acetamin ophen 5 mg-325 mg tablet TAKE 1 TABLET BY MOUTH 4 TIMES A DAY NEEDED FOR PAIN 10/12 completed Not Available Not Available Not Available terbinafi ne HCl 250 mg tablet TAKE 1 TABLET BY MOUTH EVERY DAY 10/12 completed Not Available Not Available Not Available tamsulosi n 0.4 mg capsule TAKE 1 CAPSULE BY MOUTH 30 MINUTES AFTER SAME MEAL EVERY DAY. 10/12 completed Not Available Not Available Not Available meclizine 25 mg tablet TAKE 1 TABLET BY MOUTH 3 TIMES A DAY IF NEEDED FOR DIZZINES S. active Not Available Not Available No t Available hydrocodo ne 7.5 mg-acetam inophen 325 mg tablet 10/12 completed Medicati on ID: [id number] B rand Name: hydrocod one-acet aminophe n Send Method: E-Prescr ibed Sub s Allowed: subs OK Medic ationGen ericName : hydrocod one-acet aminophe n Not Available Not Available Not Available simvastat in 20 mg tablet TAKE 1 TABLET BY MOUTH EVERYDAY AT BEDTIME active Not Available Not Available No t Available lidocaine 5 % topical patch APPLY 1 PATCH TOPICALL Y DAILY FOR 30 DAYS (ON 12 HOURS, OFF 12 HOURS) active Not Available Not Available No t [...] TABLET BY MOUTH EVERY 6 HOURS NEEDED 10/12 completed Not Available Not Available Not Available albuterol sulfate HFA 90 mcg/actua tion aerosol inhaler INHALE 2 PUFFS BY MOUTH EVERY 6 HOURS NEEDED FOR WHEEZE active Not Available Not Available No t Available hydroxyzi ne HCl 10 mg tablet 10/12 completed Medicati on ID: [id number] B rand Name: hydroxyz ine HCl Send [...] IN EACH NOSTRIL 3 TIMES A DAY 10/12 completed Not Available Not Available Not Available naproxen 500 mg tablet TAKE 1 TABLET BY MOUTH TWICE A DAY NEEDED FOR PAIN UNTIL GONE 10/12 completed Not Available Not Available Not Available amoxicill in 875 mg-potass ium clavulana te 125 mg tablet TAKE 1 TABLET BY MOUTH EVERY 12 HOURS UNTIL FINISHED 10/12 completed Not Available Not Available Not Available chlorhexi dine gluconate 0.12 % mouthwash SWISH 15ML IN MOUTH FOR 30 SECONDS THEN SPIT OUT TWICE A DAY 10/12 completed Not Available Not Available Not Available ferrous sulfate 324 mg (65 mg iron) tablet,de layed release TAKE 1 TABLET BY MOUTH 3 TIMES WEEKLY 10/12 completed Not Available Not Available Not Available diclofena c epolamine 1.3 % transderm al 12 hour patch APPLY 1 PATCH TO AFFECTED AREA EVERY DAY NEEDED 10/12 completed Not Available Not Available Not Available Qvar RediHaler 80 mcg/actua tion HFA breath activated aerosol INHALE 2 PUFFS BY MOUTH 2 TIMES A DAY 10/12 completed Not Available Not Available Not Available Biktarvy 50 mg-200 mg-25 mg tablet TAKE 1 TABLET BY MOUTH EVERY DAY active Not Available Not Available No t Available Egrifta SV 2 mg subcutane ous solution 10/12 completed Not Available Not Available Not Available Vitals Date Recorded Body height Body mass index (BMI) Body weight Systolic blood pressure Diastolic blood pressure Provider Name and Address Organization Details Last Updated DateTime 10/12/2024 177.8 cm 28 kg/m2 54502.51 g 122 mm[Hg] 74 mm[Hg] Beatrice Lynn [facility] 11:08:18 Date Recorded Body height Body mass index (BMI) Body weight Provider Name and Address Organization Details Last Updated DateTime 07/11/2024 177.8 cm 28 kg/m2 34361.51 g Lea Sierra [facility] 07/11/2024 14:38:46 Social History None recorded. Functional [...] Disorder N Anesthesia Complications N Heart Attack (PR) N Other Skin Condition N Diabetes N [...] SNOMED-CT Code Diagnosis ICD10 Code Diagnosis Note [id number] RIC ALBARADO MD [facility] [address] [place] [address] 07/11/2024 14:12:51 07/11/2024 14:52:00 Deviated nasal septum 167719095 J34.2 Chronic rhinitis 1073618 6 J31.0 Bilateral tinnitus 98777 37344 102 H93.13 f/u with Audio [id number] RIC ALBARADO MD [facility] [address] [address] 10/12/2024 10:19:45 10/12/2024 11:22:10 Bilateral tinnitus 7702119237 102 H93.13 f/u with Audio in 1 year Sensorineu ral hearing loss of bilateral ears 400595534 H90.3 Hearing stable Deviated nasal septum 12 3423241 J34.2 Nasal congestion 1695057 0 R09.81 At the present time the patient would like to continue with medical management . He will use saline solution and K-Y jelly as needed. He has tried nasal steroids in the past. No evidence of significan t sinus disease on CT scan. Health Concerns Section Related Observation LastModified by Organization Detai ls LastModified Time None Recorded Concern Status LastModified by Organization Details LastModified Time None Recorded Advance Directives Directive None Recorded Payers Insurance Date Sequence Insurance Name Policy Number Policy Gunn Covered Member ID Gunn Member ID Guarantor Name 10/12/2024 1 [facility] - MEDICARE PREFERRED (MEDICARE REPLACEMENT HMO) [facility] Roni Willson [id number] Roni Willson 10/12/2024 2 [place] [facility] Roni Willson [id number] Roni Willson Notes Date Note Type Note [...] per day or more. RIC CUTLER MD [address] [place] [address], [address], [facility] - [facility] 07/11/2024 14:51:18 10/12/2024 text/html Patient notes persistent chronic nasal congestion. He has been off the zoyo-yya-eekxotw decongestant preparations. CT scan did not show any significant sinus disease. He feels the nasal congestion is not bad enough to warrant any intervention. He still notes bilateral tinnitus but hearing is stable. RIC CUTLER MD [address] [place] [address], [place], [address], [facility] - [facility] 10/12/2024 11:17:38
--- OUTSIDE RECORDS SUMMARY | 2024-10-24 08:47 | XMS_ITS | Clinical Summary ---
Author Organization LL 175 [facility] Address [address] [place] [address] Phone Care Team Providers Care Supervisor Hand Workers Name Role Phone Gregg Todd MD Primary Care Provider [phone] Allergies No known active allergies Medications terbinafine [...] DAY. 90 capsule 1 07/25/19 25 Active albuterol HFA (PROAIR HFA ; PROVENTIL HFA ; VENTOLIN HFA) 90 mcg/actuation inhalerIndicatio ns:Chronic bronchitis, unspecified chronic bronchitis type (CMS/HCC V24, CMS/HCC V28) Inhale 2 puffs by mouth every 6 (six) hours if needed for wheezing. 1 each 08/30/19 25 026 Active meclizine (ANTIVERT) 25 mg tablet Take 1 tablet (25 mg total) by mouth 3 (three) times a day if needed for dizziness. 90 tablet 1 10/19/19 25 Active meclizine (ANTIVERT) 25 mg tablet Take 1 tablet (25 mg total) by mouth 3 (three) times a day if needed for dizziness. 90 tablet 1 08/24/19 25 025 Discontinued Active Problems Problem Noted [...] the kidneys. He states he understands. Sacroiliitis ([facility] V24) 02/07/2022 Overview (04/25/2024): Last Assessment & Plan: Mr. Willson is being followed at [facility] by Dr. Carreno where he [...] AM EDT Office Visit Internal Medicine - [address] [phone] Gregg Todd MD Mild intermittent asthma without complication (Primary Dx); Current mild episode of major depressive disorder, unspecified whether recurrent (CMS/[facility] V24); Hypercholesterolemia; Nail dystrophy 09/21/2024 3:48 PM EDT - 09/21/2024 6:51 PM EDT Emergency [facility] Emergency [address] [place] [address] Left flank pain (Primary Dx) Discharge Disposition: Home or Self Care 09/01/2024 6:58 AM EDT - 09/01/2024 11:59 PM EDT Hospital Encounter [facility] Ultrasound [address] [place] [phone] LFT elevation Discharge Disposition: Home or Self Care 08/23/2024 9:00 AM EDT Office Visit Gastroenterology - [place] 175 [facility] 175 [facility] [address] [place] [address] Alok Mccormack MD Hepatic hemangioma (Primary Dx); LFT elevation from Last 3 Months Immunizations Name Administration Dates Next Due DTaP (Infanrix) 6wks to less than 7yo 07/29/2012 Hepatitis A Adult (Havrix; V aqta) 19yo and older 08/10/2015 Hepatitis B (Rirjgpl-H-Jsuvx , Recombivax HB-Adult) 19yo and older 02/20/2017,09/12/2016,08/15/2016 [...] lumbar disc HIV (human immunodeficiency virus infection) ([facility]/HCC V24, [facility]/HCC V28) 01/04/2019 DX:HIV (human im munodeficiency virus infection) ([facility]) Hypertension 01/04/2019 [...] Hypertension DX:Hypertension HIV (human immunodeficiency virus infection) (CMS/HCC V24, CMS/HCC V28) DX:HIV (human im munodeficiency virus infection) (HCC) Anemia DX:Anemia Family History [...] care for your loved ones. For example, children's ministries director or elderly care for an older adult? [...] Info) Description 12/08/2024 8:30 AM EDT Appointment [facility] Endoscopy [address] [place] [phone] Alok Mccormack MD [address] [address] 12/29/2024 8:45 AM EDT Office Visit Pulmonolgy - [place] [address] [phone] Felicia Sparrow MD [address] [address] 03/30/2025 8:15 AM EDT Office Visit Internal Medicine - [place] [address] [phone] Gregg Todd MD [address] [address] Health Maintenance Due Date Last Done Comments [...] Procedure Name Priority Date/Time Associated Diagnosis Comments EXTERNAL MRI REPORT 09/29/2024 EXTERNAL MRI REPORT 09/29/2024 CT ABDOMEN PELVIS WO CONTRAST STAT 09/21/2024 [...] 9:33 AM EDT Elevated liver function tests HM COLONOSCOPY Routine 09/22/2014 from Last 3 Months or Most Recently Relevant to Health Maintenance Results * External MRI Report (09/29/2024) Only the most recent of2 resultswithin the time period is included. Anatomical Region Laterality Modality Magnetic Resonan ce us Provider [facility]ED[facility] Final Result * CT Abdomen Pelvis wo Contrast (09/21/2024 [...] Rascon MD on 09/21/2024 18:17:37 Dione CARTER [facility] CT PROCEDURES Una l Result * (ABNORMAL) Urinalysis with reflex microscopic and culture (09/21/2024 4:12 PM EDT) Specific [place] Urine 1.026 1.003 - 1.030 LAB URINALYSIS - AUTOMATED METHOD 09/21/2024 4:20 PM EDT [facility] pH, Urine 6.0 5.0 - 8.0 pH LAB URINALYSIS - AUTOMATED METHOD 09/21/2024 4:20 PM EDT [facility] Leukocytes, Urine Negative Negative LAB URINALYSIS - AUTOMATED METHOD 09/21/2024 4:20 PM [facility] Nitrite, Urine Negative Negative LAB URINALYSIS - AUTOMATED METHOD 09/21/2024 4:20 PM T [facility] Protein, Urine Trace <=Trace mg/dL LAB URINALYSIS - AUTOMATED METHOD 09/21/2024 4:20 PM [facility] Glucose, Urine Negative Negative mg/dL LAB URINALYSIS - AUTOMATED METHOD 09/21/2024 4:20 PM [facility] Ketones, Urine Trace(A) Negative mg/dL LAB URINALYSIS - AUTOMATED METHOD 09/21/2024 4:20 PM [facility] Urobilinogen, Urine 1.0 0.2 - 1.0 mg/dL LAB URINALYSIS - AUTOMATED METHOD 09/21/2024 4:20 PM [facility] Bilirubin, Urine Negative Negative LAB URINALYSIS - AUTOMATED METHOD 09/21/2024 4:20 PM [facility] Blood, Urine Negative Negative LAB URINALYSIS - AUTOMATED METHOD 09/21/2024 4:20 PM [facility] Urine Urine specimen obtained by clean catch procedure / Unknown Non-blood Collection / Unknown 09/21/2024 4:12 PM EDT 09/21/2024 4:14 PM EDT us Dione CARTER LAB URINE ORDERABLES F inal Result [facility] [address] [place] [address], * Martinez urine culture tube (09/21/2024 4:12 PM EDT) [facility] Extra Tube Hold for add-ons. 09/21/2024 6:01 PM EDT [facility] Comment:Auto resulted. Urine Urine specimen obtained by clean catch procedure / Unknown Non-blood Collection / Unknown 09/21/2024 4:12 PM EDT 09/21/2024 4:14 PM EDT Dione CARTER LAB URINE ORDERABLES F inal Result [facility] [address] [place] [address], [place] [phone] * (ABNORMAL) CBC auto differential (09/21/2024 11:11 AM EDT) Only the most recent of2 resultswithin the time period is included. [facility] WBC 5.4 4.8 - 10.8 K/mcL LAB HEMETOLOGY METHOD 09/21/2024 12:00 PM [facility] RBC 4.70 4.50 - 5.50 M/mcL LAB HEMETOLOGY METHOD 09/21/2024 12:00 PM [facility] Hemoglobin 14.0 13.5 - 17.5 g/dL LAB HEMETOLOGY METHOD 09/21/2024 12:00 PM [facility] Hematocrit 41.8(L) 42.0 - 54.0 % LAB HEMETOLOGY METHOD 09/21/2024 12:00 PM [facility] MCV 89.7 79.0 - 98.0 FL LAB HEMETOLOGY METHOD 09/21/2024 12:00 PM [facility] MCH 30.0 27.0 - 32.0 pcg LAB HEMETOLOGY METHOD 09/21/2024 12:00 PM [facility] MCHC 33.5 32.0 - 37.0 g/dL LAB HEMETOLOGY METHOD 09/21/2024 12:00 PM [facility] RDW 13.4 11.0 - 15.0 % LAB HEMETOLOGY METHOD 09/21/2024 12:00 PM [facility] Platelets 211 130 - 400 K/mcL LAB HEMETOLOGY METHOD 09/21/2024 12:00 PM [facility] MPV 10.8 7.0 - 11.0 FL LAB HEMETOLOGY METHOD 09/21/2024 12:00 PM [facility] NRBC 0.0 <1.0 % LAB HEMETOLOGY METHOD 09/21/2024 12:00 PM [facility] NRBC Absolute 0.00 <0.10 K/mcL LAB HEMETOLOGY METHOD 09/21/2024 12:00 PM [facility] Neutrophils Relative 57.6 % LAB HEMETOLOGY METHOD 09/21/2024 12:00 PM [facility] Lymphocytes Relative 27.4 % LAB HEMETOLOGY METHOD 09/21/2024 12:00 PM [facility] Monocytes Relative 11.4 % LAB HEMETOLOGY METHOD 09/21/2024 12:00 PM [facility] Eosinophils Relative 3.0 % LAB HEMETOLOGY METHOD 09/21/2024 12:00 PM [facility] Basophils Relative 0.4 % LAB HEMETOLOGY METHOD 09/21/2024 12:00 PM [facility] Immature Granulocytes Relative 0.2 % LAB HEMETOLOGY METHOD 09/21/2024 12:00 PM [facility] Neutrophils Absolute 3.10 1.50 - 7.00 K/mcL LAB HEMETOLOGY METHOD 09/21/2024 12:00 PM [facility] Lymphocytes Absolute 1.47 1.00 - 5.00 K/mcL LAB HEMETOLOGY METHOD 09/21/2024 12:00 PM EDT [facility] Monocytes Absolute 0.61 0.20 - 1.00 K/mcL LAB HEMETOLOGY METHOD 09/21/2024 12:00 PM EDT [facility] Eosinophils Absolute 0.16 0.00 - 0.50 K/mcL LAB HEMETOLOGY METHOD 09/21/2024 12:00 PM EDT [facility] Basophils Absolute 0.02 0.00 - 0.20 K/[facility] LAB HEMETOLOGY METHOD 09/21/2024 12:00 PM EDT [facility] Immature Granulocytes Absolute 0.01 0.00 - 0.03 K/[facility] LAB HEMETOLOGY METHOD 09/21/2024 12:00 PM EDT [facility] Blood Venous blood specimen / Unknown Venipuncture / Unknown 09/21/2024 11:11 AM EDT 09/21/2024 11:49 AM EDT us Baldomero Bates MD LAB BLOOD ORDERABLES Final Resu lt [facility] [address] [place] [address], [place] [phone] * (ABNORMAL) Lipase (09/21/2024 11:11 AM EDT) Only the most recent of2 resultswithin the time period is included. Lipase 95(H) 13 - 75 unit/L LAB CHEMISTRY METHOD 09/21/2024 12:38 PM EDT [facility] Blood Venous blood specimen / Unknown Venipuncture / Unknown 09/21/2024 11:11 AM EDT 09/21/2024 11:49 AM EDT us Baldomero Bates MD LAB BLOOD ORDERABLES Final Resu lt [facility] [address] [place] [address], [place] [phone] * Comprehensive metabolic panel (09/21/2024 11:11 AM EDT) Only the most recent of2 resultswithin the time period is included. Sodium 141 133 - 145 mmol/L LAB CHEMISTRY METHOD 09/21/2024 1:06 PM [facility] Potassium 4.1 3.5 - 5.5 mmol/L LAB CHEMISTRY METHOD 09/21/2024 1:06 PM [facility] Chloride 107 96 - 110 mmol/L LAB CHEMISTRY METHOD 09/21/2024 1:06 PM [facility] CO2 26 21 - 32 mmol/L LAB CHEMISTRY METHOD 09/21/2024 1:06 PM [facility] Anion Gap 8 3 - 11 LAB CHEMISTRY METHOD 09/21/2024 1:06 PM [facility] Glucose 95 70 - 100 mg/dL LAB CHEMISTRY METHOD 09/21/2024 1:06 PM [facility] BUN 13 5 - 25 mg/dL LAB CHEMISTRY METHOD 09/21/2024 1:06 PM [facility] Creatinine 0.88 0.70 - 1.30 mg/dL LAB CHEMISTRY METHOD 09/21/2024 1:06 PM [facility] eGFR 98 >=60 mL/min/1. 73m2 LAB CHEMISTRY METHOD 09/21/2024 1:06 PM [facility] Comment:Calculation based on the??Chronic Kidney Disease Epidemiology Collaboration (CKD-EPI) equation refit??without adjustment for race. BUN/Creatinine Ratio 14.8 LAB CHEMISTRY METHOD 09/21/2024 1:06 PM [facility] Calcium 9.4 8.5 - 10.5 mg/dL LAB CHEMISTRY METHOD 09/21/2024 1:06 PM [facility] AST (SGOT) 39 10 - 42 unit/L LAB CHEMISTRY METHOD 09/21/2024 1:06 PM EDT [facility] ALT (SGPT) 46 10 - 60 unit/L LAB CHEMISTRY METHOD 09/21/2024 1:06 PM EDT [facility] Alkaline Phosphatase 85 42 - 121 unit/L LAB CHEMISTRY METHOD 09/21/2024 1:06 PM EDT [facility] Total Protein 6.8 6.0 - 8.0 g/dL LAB CHEMISTRY METHOD 09/21/2024 1:06 PM EDT [facility] Albumin 3.8 3.2 - 5.0 g/dL LAB CHEMISTRY METHOD 09/21/2024 1:06 PM EDT [facility] Total Bilirubin 0.6 0.0 - 1.4 mg/dL LAB CHEMISTRY METHOD 09/21/2024 1:06 PM EDT [facility] Blood Venous blood specimen / Unknown Venipuncture / Unknown 09/21/2024 11:11 AM EDT 09/21/2024 11:49 AM EDT us Baldomero Bates MD LAB BLOOD ORDERABLES Final Resu lt [facility] [address] [place] [address], [place] [phone] * [place] Abdomen Limited (09/01/2024 7:28 AM EDT) Anatomical Region Laterality Modality Body Ultrasound 09/01/2024 8:48 AM EDT Impressions 09/01/2024 9:07 AM EDT Evaluation limited by poor sonographic windows. ??No visible abnormality. -------- FINAL REPORT -------- Dictated By: Amari Beach Dictated Date: 09/01/2024 08:48 ET Assigned Physician: Amari Beach Reviewed and Electronically Signed By: Amari Beach Signed Date: 09/01/2024 09:07 ET Workstation ID: [id number] Transcribed By: Self Edit Transcribed Date: 09/01/2024 [...] Signed Date: 09/01/2024 09:07 ET Workstation ID: [id number] Transcribed By: Self Edit Transcribed Date: 09/01/2024 08:48 ET us Alok Mccormack MD [facility] US PROCEDURES Final Result * Hepatitis B surface antigen with reflex to confirmation (08/23/2024 9:33 AM EDT) Hepatitis B Surface Ag Negative Negative LAB CHEMISTRY METHOD 08/23/2024 11:48 AM EDT [facility] Blood Venous blood specimen / Unknown Venipuncture / Unknown 08/23/2024 9:33 AM EDT 08/23/2024 10:35 AM EDT Narrative [facility] - 08/23/2024 11:48 AM EDT Over the counter supplements containing high doses of biotin may interfere with this assay. ??If interference is suspected, patients shoud be retested after refraining from biotin supplements for 72 hours. Юиля Angel MD LAB BLOOD ORDERABLES Una l Result Performing Organization Address [facility]/ZIP Co de Phone Number [facility] [address] [place] [address], [place] [phone] * Treponema pallidum antibody with reflex to RPR and particle agglutination (08/23/2024 9:33 AM EDT) [facility] T. Pallidum Antibodies Negative Negative LAB CHEMISTRY METHOD 08/23/2024 11:50 AM EDT [facility] Blood Venous blood specimen / Unknown Venipuncture / Unknown 08/23/2024 9:33 AM EDT 08/23/2024 10:35 AM EDT Юлия Angel MD LAB BLOOD ORDERABLES Una l Result [facility] [address] [place] [address], [place] [phone] * (ABNORMAL) Lipid panel with reflex to direct LDL (08/23/2024 9:33 AM EDT) [facility] Cholesterol 210(H) 0 - 200 mg/dL LAB CHEMISTRY METHOD 08/23/2024 11:24 AM EDT [facility] Triglycerides 154(H) 0 - 150 mg/dL LAB CHEMISTRY METHOD 08/23/2024 11:24 AM EDT [facility] HDL 58 >=40 mg/dL LAB CHEMISTRY METHOD 08/23/2024 11:24 AM EDT [facility] LDL Calculated 121(H) 0 - 100 mg/dL LAB CHEMISTRY METHOD 08/23/2024 11:24 AM EDT [facility] VLDL Cholesterol Yovany 30.8 mg/dL LAB CHEMISTRY METHOD 08/23/2024 11:24 AM EDT [facility] Non HDL Chol. (LDL+VLDL) 152(H) <145 mg/dL LAB CHEMISTRY METHOD 08/23/2024 11:24 AM EDT [facility] Chol/HDL Ratio 3.6 0.0 - 4.4 LAB CHEMISTRY METHOD 08/23/2024 11:24 AM EDT [facility] Blood Venous blood specimen / Unknown Venipuncture / Unknown 08/23/2024 9:33 AM EDT 08/23/2024 10:35 AM EDT us Юлия Angel MD LAB BLOOD ORDERABLES Una tovar Result [facility] [address] [place] [address], [place] [phone] * Hepatitis panel, acute with reflex to confirmation (08/23/2024 9:33 AM EDT) Hepatitis B Surface Ag Negative Negative LAB CHEMISTRY METHOD 08/23/2024 12:18 PM EDT [facility] Hepatitis A Antibody IgM Negative Negative LAB CHEMISTRY METHOD 08/23/2024 12:18 PM EDT [facility] Hep B Core IgM Negative Negative LAB CHEMISTRY METHOD 08/23/2024 12:18 PM EDT [facility] Hepatitis C Antibody Negative Negative LAB CHEMISTRY METHOD 08/23/2024 12:18 PM EDT [facility] Blood Venous blood specimen / Unknown Venipuncture / Unknown 08/23/2024 9:33 AM EDT 08/23/2024 10:35 AM EDT us Alok Mccormack MD LAB BLOOD ORDERABLES Final Resul t [facility] [address] [place] [address], [place] [phone] * Iron and TIBC (08/23/2024 9:33 AM EDT) Iron 95 50 - 160 mcg/dL LAB CHEMISTRY METHOD 08/23/2024 11:23 AM EDT [facility] TIBC 296 250 - 450 mcg/dL LAB CHEMISTRY METHOD 08/23/2024 11:23 AM EDT [facility] Iron Saturation 32 20 - 50 % LAB CHEMISTRY METHOD 08/23/2024 11:23 AM EDT [facility] Blood Venous blood specimen / Unknown Venipuncture / Unknown 08/23/2024 9:33 AM EDT 08/23/2024 10:35 AM EDT us Alok Mccormack MD LAB BLOOD ORDERABLES Final Resul t [facility] [address] [place] [address], [place] [phone] * Lymphocyte T-cell panel (08/23/2024 9:33 AM EDT) CD4 671 426 - 1,776 cells/mcL 08/25/2024 7:03 AM EDT [facility] CD8 300 161 - 838 cells/mcL 08/25/2024 7:03 AM EDT [facility] CD4/CD8 Ratio 2.24 0.90 - 4.90 08/25/2024 7:03 AM EDT [facility] CD4 % 45 33 - 64 % 08/25/2024 7:03 AM EDT [facility] CD8 % 20 10 - 39 % 08/25/2024 7:03 AM EDT [facility] Blood Venous blood specimen / Unknown Venipuncture / Unknown 08/23/2024 9:33 AM EDT 08/23/2024 10:41 AM EDT us Юлия Angel MD LAB MOLECULAR DIAGNOSTICS ORDERABLES Final Result [facility] [address] [place] [address], [place] [phone] * (ABNORMAL) HIV 1 molecular study quantitative (08/23/2024 9:33 AM EDT) [facility] HIV-1 RNA Interpretation Detected (A) Not Detected LAB MOLECULAR DIAGNOSTICS METHOD 08/23/2024 3:02 PM EDT [facility] HIV-1 RNA Copies <20 <20 copies/mL LAB MOLECULAR DIAGNOSTICS METHOD 08/23/2024 3:02 PM EDT [facility] Comment:HIV RNA detected but below the limit of quantitation. Unable to report quantitative results <20 copies/mL. HIV-1 RNA Log <1.30 <1.30 Log 10 copies/mL LAB MOLECULAR DIAGNOSTICS METHOD 08/23/2024 3:02 PM EDT [facility] Blood Venous blood specimen / Unknown Venipuncture / Unknown 08/23/2024 9:33 AM EDT 08/23/2024 10:42 AM EDT us Юлия Angel MD LAB BLOOD ORDERABLES Una l Result [facility] [address] [place] [address], [place] [phone] * Thyroid stimulating hormone (08/23/2024 9:33 AM EDT) [facility] TSH 2.20 0.40 - 4.00 mcIU/mL LAB CHEMISTRY METHOD 08/23/2024 11:37 AM EDT [facility] Blood Venous blood specimen / Unknown Venipuncture / Unknown 08/23/2024 9:33 AM EDT 08/23/2024 10:35 AM EDT Юлия Angel MD LAB BLOOD ORDERABLES Una l Result [facility] [address] [place] [address], [place] [phone] * (ABNORMAL) Amylase (08/23/2024 9:33 AM EDT) [facility] Amylase 211(H) 25 - 115 unit/L LAB CHEMISTRY METHOD 08/23/2024 11:23 AM EDT [facility] Blood Venous blood specimen / Unknown Venipuncture / Unknown 08/23/2024 9:33 AM EDT 08/23/2024 10:35 AM EDT Юлия Angel MD LAB BLOOD ORDERABLES Una l Result Performing Organization Address City/[facility]/ZIP Co de Phone Number [facility] [address] [place] [address], [place] [phone] * Hm Colonoscopy (09/22/2014) [facility] Colonoscopy Abstracted Anatomical Region Laterality Modality Other Historical Provider HEALTH MAINTENANCE Final Result from Last 3 Months or Most Recently Relevant to Health Maintenance Insurance [employer] [place] Care Teams Supervisor Hand Workers Relationship Specialty Start Date End Date Gregg Todd MD [address] [facility] [address] [place] [address] PCP - General Internal Medicine 04/17/21
--- OUTSIDE RECORDS SUMMARY | 2024-10-24 08:47 | XMS_ITS | Clinical Summary ---
Author Organization [facility] Address [address] [place] [address] Care Team Providers Care District Traffic Chief Name Role Phone Gregg Todd MD Primary [...] age to complete this topic Care Teams District Traffic Chief Relationship Specialty Start Date End Date Gregg Todd MD PCP - General Internal Medicine 06/29/23
== END 2024-10-24 09:39 | disposition home or self-care (01) ==
PROVIDERS: PCP Internal Medicine; Visit Provider Internal Medicine
DX: M54.16 Radiculopathy, lumbar region (principal); M96.1 Postlaminectomy syndrome, not elsewhere classified
CPT/HCPCS: 99213

== ENCOUNTER → 2024-10-24 08:43 | Outpatient (BNVA) | payer MEDICARE, MEDICAID, SELFPAY | PROVIDERS: PCP Internal Medicine; Visit Provider Internal Medicine | DX: Z51.81 Encounter for therapeutic drug level monitoring (principal); F11.20 Opioid dependence, uncomplicated; M54.16 Radiculopathy, lumbar region; M96.1 Postlaminectomy syndrome, not elsewhere classified | CPT/HCPCS: 99212 ==

== ENCOUNTER 2024-11-21 08:55 | Outpatient (AMB) | payer MEDICARE, MEDICAID, SELFPAY ==
--- NOTE | 2024-11-21 09:03 | MHC.OFFVIS ---
Vital Signs 11/21/24 09:05 Height 5 ft 10 in Weight 193 lb BMI 27.7 BP 135/70 Blood Pressure Location Lt brachial Position Sitting Respiration 16 Pulse 54 Pulse Source Pulse Oximeter Pulse Oximetry (%) 98 Oxygen Delivery Method Room Air Intake Visit Reasons: Pill count Intake Note: Pt states he last took vicodin 11/21/24 @ 7am Preventive Medicine Officer Required: No Unemployment Specialist: Unemployment Specialist Present Accompanied by: Phillip Hess Allergies No Known Allergies Allergy (Verified 11/21/24 09:06) Medication List - Last Reconciled 11/21/24 by Loida Louie LPN albuterol sulfate 90 mcg/actuation 2 puffs inhalation Q6H PRN alprazolam 0.5 mg PO TID PRN hvustlmeu-dwlaojyw-lucdbiy ala 50-200-25 mg (Biktarvy) 1 tab PO DAILY celecoxib 100 mg PO BID PRN chlorhexidine gluconate 0.12% 15 mL PO BID doxycycline hyclate 100 mg PO DAILY ferrous sulfate 324 mg PO 3XW fluoxetine 20 mg PO DAILY fluticasone propionate 50 mcg/actuation 1 spray intranasal BID gabapentin 600 mg PO QID hydrocodone-acetaminophen 5-325 mg 1 tab PO Q4-6H PRN lidocaine 5% 1 patch topical DAILY 30 days meclizine 25 mg PO DAILY PRN mupirocin 2% topical DAILY naloxone 4 mg/actuation (Narcan) 4 mg intranasal Q2M PRN omeprazole 40 mg PO DAILY simvastatin 20 mg PO BEDTIME terbinafine HCl 250 mg PO DAILY zolpidem 5 mg PO BEDTIME PRN HPI HPI Pill count: Details: History of Present Illness The patient is a 59-year-old male presenting with a complaint of right knee pain associated with osteoarthritis. The knee pain is part of a chronic condition attributable to degenerative changes. The patient acknowledges occasional right hip pain as well, but today's primary focus is on addressing the knee pain. Pain Description - Onset: Chronic - Quality: Persistent discomfort - Location: Primarily right knee; occasional right hip pain - Exacerbating Factors: Activity may exacerbate symptoms - Relieving Factors: Injection planned for pain relief - Interference: Pain interferes with daily activities, hence the need for treatment Physical Exam - Appears afebrile. - Alert and oriented. - Mood and affect appropriate. - Follows and participates in conversation appropriately. - Respiratory effort is unlabored. - Able to transition from sit to stand unassisted. - Ambulates with bilaterally normal heel strike and toe off. - Able to stand and walk on toes and heels. Results Pain Management - Affect: The patient's mood seems stable, no reported effect on psychological wellbeing - Analgesia: Intervention with a Kenalog injection for knee pain, previously prescribed Vicodin refill requested - Adverse Effects: None reported - Activities of Daily Living: Pain impacts daily activities, necessitating today's intervention - Aberrant Drug Related Behaviors: None observed, pill count consistent Procedure - Right knee intra-articular injection performed for osteoarthritis - Informed consent obtained prior to procedure - 25-gauge needle advanced into right knee joint after skin cleansing with Cloraprep - Injected 40 mg Kenalog mixed with 3 cc ropivacaine 0.5% with no complications Physical Exam Vital Signs: Last Vital Signs Pulse 54 11/21/24 09:05 Resp 16 11/21/24 09:05 BP 135/70 11/21/24 09:05 Pulse Ox 98 11/21/24 09:05 Oxygen Delivery Method Room Air 11/21/24 09:05 BMI result Body Mass Index 27.7 Assessment & Plan Assessment & Plan (1) Sacroiliac joint dysfunction: Code(s): M53.3 - Sacrococcygeal disorders, not elsewhere classified Category: Medical (2) Cervical spondylosis: Code(s): M47.812 - Spondylosis without myelopathy or radiculopathy, cervical region Category: Medical (3) Lumbar radiculitis: Code(s): M54.16 - Radiculopathy, lumbar region Category: Medical (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 Discussion Notes I discussed with the patient the management of his right knee osteoarthritis, focusing on the benefits of Kenalog injections to alleviate pain. I explained the procedure and obtained informed consent. We talked about the importance of monitoring his symptoms and adherence to prescribed medication. The patient was made aware of the potential need to address the right hip pain in future visits. I refilled his Vicodin prescription post-verification of accurate pill count. Patient Instructions - Continue medication as prescribed - Monitor for improvement following knee injection - Return for follow-up if symptoms persist or worsen - Schedule future appointment for evaluation of right hip pain if necessary Medications: Refilled hydrocodone-acetaminophen 5-325 mg Partial Fill upon patient request. 1 tab PO Q4-6H PRN 180 tabs 0RF pain Coding Level of Care Code Est Pt Level 4 (20364) Diagnoses Sacroiliac joint dysfunction M53.3 Cervical spondylosis M47.812 Lumbar radiculitis M54.16 MCC (current) use of opiate analgesic Z79.891 Osteoarthritis, knee M17.9
[2024-11-21 09:05] VITALS: BP 135/70; PULSE 54; RESP 16; O2SAT 98; BMI 27.7
--- OUTSIDE RECORDS SUMMARY | 2024-11-21 09:08 | XMS_ITS | Data Portability ---
Author Organization [place] - [facility], Allergy Address [address] [address] Care Team Providers Care Embedded Linux Engineer Name Role Phone HARIKA HOLLINS Primary Care [...] (0.03 %) nasal spray 2024 025 [email or web address] [facility][id number], [address] [place], [address], 10/12/2024 11:09:37 Patient TargetsNo targets recorded. Patient Instructions Encounter Date Encounter Id Patient Instructions Last Modified By Organization Details Last Modified Time 07/11/2024 [id number] Note patient with chronic nasal obstruction for at least 1 year. He has been using ckmf-ocz-woqoeuk decongestant preparations several times per day. Examination shows a septal deviation of the right side limiting endoscopy but no evidence of polyps. Suggest warm saline irrigations twice daily followed by ipratropium bromide 2 sprays each nostril 3 times daily. I will have him dilute the oxymetazoline or which ever wibf-kri-kfgojjg decongestant preparation he is using 50% every [...] observ ation record ed. SATHISH [facility] [address] [facility] [address], [place], [address], 08/17/2024 20:00:18 10/13/19 audio gram No observ ation record ed. BARCODE Not Available 2024 12:44:59 Result Notes None recorded. Problems Name Problem SNOMED Code Status Onset Date Resolution Date Notes Provider Name and Address Organization Details Recorded Time Bilateral tinnitus 48716914086 02 Active 2021 Tinnitus, bilateral ; Note: Date Diagnosed : 02/03/2022 3:11 PM (H93.13) Not Available [facility] 4 02:53:58 Disorder of smell 380165609 Active 2021 Other disturban kris of smell and taste; Note: Date Diagnosed : 02/03/2022 3:11 PM (R43.8) Not Available [facility] 4 02:54:02 Disorder of taste 245779745 Active 2021 Other disturban kris of smell and taste; Note: Date Diagnosed : 02/03/2022 3:11 PM (R43.8) Not Available [facility] 4 02:54:02 Sensorine ural hearing loss of bilateral ears 320675507 Active 2021 Sensorine ural hearing loss, bilateral ; Note: Date Diagnosed : 02/03/2022 3:11 PM (H90.3) Not Available [facility] 4 02:54:01 Deviated nasal septum 966218929 Active 2024 RIC ALBARADO MD [address] [place] [address], [place], [address] , [facility] - [facility] 5 11:16:48 Chronic rhinitis 13800101 Active 2024 RIC ALBARADO MD [address], [place], [address] , [place] - [facility] 5 14:49:12 Vasomotor rhinitis 3926083 Active 2024 RIC ALBARADO MD [address], [place], [address] , [place] - [facility] 5 14:49:16 Chronic sinusitis 10267423 Active 2024 RIC ALBARADO MD [address], [place], [address] , [place] - [facility] 5 09:02:12 Nasal congestio n 52061035 Active 2024 RIC ALBARADO MD [address], [place], [address] , [place] - [facility] 11:16:52 Problem Notes None recorded. Procedures Surgical History Date Name Laterality Status Provider Name and Address Organization Details Recorded Time Air & Speech Audio with Tymps - 09137, 53240 & 68915 completed LATESHA SÁNCHEZ MA, CCC-A [address] [facility], [place], [address], [facility] - [facility] 10/12/2024 11:00:09 JMSNasal/Sinus Endoscopy completed RIC CUTLER MD [address] [facility], [place], [address], [facility] - [facility] 07/11/2024 14:48:02 Imaging Results None recorded. Procedure [...] mg tablet 07/07 completed Medicati on ID: [id number] B rand Name: methocar bamol Se nd [...] mg tablet 07/07 completed Medicati on ID: [id number] B rand Name: meloxica m Send Method: [...] mg tablet 10/12 completed Medicati on ID: [id number] B rand Name: hydrocod one-acet aminophe n [...] mg tablet 10/12 completed Medicati on ID: [id number] B rand Name: hydroxyz ine HCl Send [...] Updated DateTime 07/11/2024 177.8 cm 28 kg/m2 07724.51 g Lea Sierra [facility] 07/11/2024 14:38:46 Date Recorded Body height Body mass index (BMI) Body weight Systolic blood pressure Diastolic blood pressure Provider Name and Address Organization Details Last Updated DateTime 10/12/2024 177.8 cm 28 kg/m2 91540.51 g 122 mm[Hg] 74 mm[Hg] Beatrice Lynn [facility] 11:08:18 Social History None recorded. Functional Status None [...] SNOMED-CT Code Diagnosis ICD10 Code Diagnosis Note [id number] RIC ALBARADO MD [facility] [address] [place] [place] [address] 07/11/2024 14:12:51 07/11/2024 14:52:00 Deviated nasal septum 234142536 J34.2 Chronic rhinitis 0929801 6 J31.0 Bilateral tinnitus 09509 97163 102 H93.13 f/u with Audio [id number] RIC ALBARADO MD [facility] 100 [place] [place] [address] 10/12/2024 10:19:45 10/12/2024 11:22:10 Bilateral tinnitus 4006094597 102 H93.13 f/u with Audio in 1 year Sensorineu ral hearing loss of bilateral ears 407865729 H90.3 Hearing stable Deviated nasal septum 12 8414853 J34.2 Nasal congestion 6987027 0 R09.81 At the present time the [...] Gunn Member ID Guarantor Name 10/12/2024 1 [facility] - MEDICARE PREFERRED (MEDICARE REPLACEMENT HMO) [facility] Roni Willson [id number] Roni Willson 10/12/2024 2 [place]: [facility] Roni Willson [id number] Roni Willson Notes Date Note Type Note [...] per day or more. RIC CUTLER MD 100 [facility],[address], [address], [place] - [facility] 07/11/2024 14:51:18 10/12/2024 text/html Patient notes persistent chronic nasal congestion. He has been off the sjvh-hlv-qzbkkxj decongestant preparations. CT scan did not show any significant sinus disease. He feels the nasal congestion is not bad enough to warrant any intervention. He still notes bilateral tinnitus but hearing is stable. RIC CUTLER MD [address] [facility],[place] [address], [place], [address], [facility] - [facility] 10/12/2024 11:17:38
== END 2024-11-21 09:37 | disposition home or self-care (01) ==
LOC: HO.PMC 08:55
PROVIDERS: PCP Internal Medicine; Visit Provider Internal Medicine
DX: M47.812 Spondylosis without myelopathy or radiculopathy, cervical region (principal); M54.16 Radiculopathy, lumbar region; Z79.891 Long term (current) use of opiate analgesic; M17.11 Unilateral primary osteoarthritis, right knee
CPT/HCPCS: 20610; 99214

== ENCOUNTER → 2024-11-21 08:55 | Outpatient (BNVA) | payer MEDICARE, MEDICAID, SELFPAY | PROVIDERS: PCP Internal Medicine; Visit Provider Internal Medicine | DX: M53.3 Sacrococcygeal disorders, not elsewhere classified (principal); M47.812 Spondylosis without myelopathy or radiculopathy, cervical region; M54.16 Radiculopathy, lumbar region; Z79.891 Long term (current) use of opiate analgesic; M17.9 Osteoarthritis of knee, unspecified | CPT/HCPCS: 20610; 99212 ==

== ENCOUNTER 2024-11-29 13:43 | Outpatient (REF) | payer MEDICARE, MEDICAID, SELFPAY ==
--- NOTE | ~2024-11-29 | XR_ITS ---
CLINICAL HISTORY: M54.16 - Radiculopathy, lumbar region --- Additional Notes or Special Instructions: AP LAT FLEX EX 4 views lumbar spine, with flexion and extension Comparison: None Findings: There is mild scoliosis . No fractures There is moderate L2-3 disc space narrowing in the left and 8 mm left lateral subluxation of the L2 on L3. There is advanced degenerative disc space narrowing of L3-4 on the left, and 9 mm right lateral subluxation of L3 on L4.. There is advanced degenerative disc space narrowing at L4-5 on the right. Disc margin osteophytes are present throughout L2 through S1 disc spaces. There is facet arthrosis at mid and lower lumbar levels with canal stenosis at L3-4, L4-5 and L5-S1. No subluxations on flexion and extension views. Impression: Scoliosis with degenerative spondylosis and circumferential canal stenosis at mid and lower lumbar levels. This document has been electronically signed by: Pardeep Caraballo MD on 11/29/2024 21:32:30
== END 2024-11-29 13:44 | disposition home or self-care (01) ==
LOC: HO.HOSX 13:43
PROVIDERS: PCP Internal Medicine; Referring Provider Internal Medicine; Visit Provider Physician Assistant
DX: M54.16 Radiculopathy, lumbar region (principal); M51.362 Other intervertebral disc degeneration, lumbar region with discogenic back pain and lower extremity pain
CPT/HCPCS: 72110; 99202

== ENCOUNTER 2024-11-29 13:43 | Outpatient (AMB) | payer MEDICARE, MEDICAID, SELFPAY ==
[2024-11-29 14:03] VITALS: BMI 28.0
--- NOTE | 2024-11-29 14:03 | HO.SPINEOV ---
Vital Signs 11/29/24 14:03 Height 5 ft 10 in Weight 195 lb BMI 28.0 Intake Visit Reasons: lumbar stenosis Intake Note: Mr. Willson is here today c/o low back pain that radiates all the way down to the feet. Mold Runner Required: No Allergies No Known Allergies Allergy (Verified 11/29/24 14:04) Physical Exam Vital Signs: BMI result Body Mass Index 28.0 Assessment & Plan Assessment & Plan (1) Degenerative disc disease (DDD) of lumbar region with discogenic back pain and leg pain: Code(s): M51.362 - Other intervertebral disc degeneration, lumbar region with discogenic back pain and lower extremity pain Category: Medical Plan Dear Dr. Mckeon, Thank you for referring Roni to our office today. He is a pleasant 59-year-old male who comes in today for evaluation of severe low back pain and shooting pain into his bilateral lower extremities. He reports that he has a longstanding history of low back pain, and had 5 previous lumbar spine decompression / microdiscectomy procedures in the past. I reviewed some of his records from [place] and based on what I can find it sounds like he had an L2-[address] Minaya in 2018, then a left L2-3 discectomy with L3-[address] Griffith in 2021. Prior to those 2 surgeries he reports 3 previous day surgery operations Dr. Dahl completed on his lumbar spine, but does not remember what they were. In addition to this he reports that he was evaluated before in clinic at [facility] by Dr. Valdovinos, who offered him a L4-5, L5-S1 lumbar fusion if his back pain gets more severe. I was able to confirm this by reviewing Dr. Griffith's old notes. In regards to his low back pain, he states that it is chronic, and severe, rating it as an 8/10 throughout the day in clinic today. He reports that it is now accompanied by shooting pain down his bilateral lower extremities, which has been ongoing since 2022. He does report that the pain that Dr. Munson attempted to address in 2021 did improve after surgery. When describing the pain that shoots down his legs he states that it starts in his posterior buttocks and shoots down the lateral aspect of both legs, past the ankles, and terminating near the bottoms of his feet. He reports intermittent numbness/tingling especially on the bottoms of his feet. He states that positional changes such as rising from a seated position causes fairly severe exacerbation of pain. In addition to this attempting to ambulate for any prolonged period of time causes him fairly severe back and leg pain. He is currently taking hydrocodone 5 mg q4h and Gabapentin 600mg q8h in an effort to mitigate his symptoms. He has been to PT many times in the past and found that it is not helpful. He has had many injections with our colleagues in pain management which have always only provided transient relief. PMH: See HPI for details regarding his previous spine surgery history. He reports that he had to have a portion of his eyelids removed to help with his vision, but denies any other surgery. Asthma, anxiety, On HIV suppression medication sometimes also used as PREP (no mention of HIV by patient during office visit), depression, seasonal allergies, GERD, hyperlipidemia, insomnia. Chronic pancreatic issues with elevated pancreatic enzymes, followed by Dr. Mccormack. Social hx: The patient does not smoke, reports no substance use. Medications: See fundfindr list. Allergies: NKDA. Physical exam: The patient has about 4/5 strength with left-sided dorsiflexion. The rest of his bilateral upper and lower extremity strength is 5/5. He ambulates well without any assistive devices but does so fairly slowly and does elicit pain when making positional changes. No significant sensational deficits reported to light touch on examination. Reflexes are 2+ intact diffusely. Weakly (+) bilateral straight leg raise, (-) Kothari's, (-) clonus, (-) Lhermitte's. Imaging review: MRI of the lumbar spine completed here at [facility] shows diffuse spondylosis of the lumbar spine. There is severe degenerative disc disease at L4-5, L5-S1. At L4-5 and L5-S1 there is severe bilateral foraminal stenosis, but only mild-moderate central canal stenosis. There are 2 disc herniations at L2-3, L3-4. At L2-3 there is severe left-sided and moderate-severe right-sided foraminal stenosis accompanied by severe central canal stenosis. At L3-4, there is a larger disc herniation causing severe central canal and bilateral foraminal stenosis. Impression: Roni is a pleasant 59-year-old male who comes in today for evaluation of longstanding low back pain and some newer leg pain that has occurred over the course of the last couple of years. He has a complex past medical history including 5 previous spine surgeries. He wished to be evaluated in our clinic today, as his back and leg pain are now quite severe, and he states that Dr. Valdovinos previously offered him a lumbar fusion L4-S1 to alleviate his back pain. I believe this is absolutely necessary to address his low back pain, however the patient also has disc herniations at L2-3, L3-4. The L2-3 disc space has now been operated on twice and this would be the patient's 2nd disc herniation recurrence after initial removal. This typically warrants lumbar fusion. Then there is the question of the L3-4 space requiring fusion as this is the segment between L2-3 and L4-S1. I would like to send the patient for a set of dynamic lumbar spine X-rays to evaluate for any instability which may be contributing to his problem. I will have the patient follow up with Dr. Valdovinos in clinic to discuss surgical options. In the interim I will have our MA request the operative notes for Roni patricio [facility] so we can try and ascertain what other procedures he had done by Dr. Dahl. Thank you for allowing us to care for your patient. The total time spent with this visit with this patient was 65 minutes reviewing history, physical exam, MRI imaging review, and implementation of treatment plan or further diagnostic testing Duane Valdovinos MD,PhD [facility] Orders: Orders XR lumbar spine 4V min Today M54.16 - Radiculopathy, lumbar region Coding Level of Care Code New Pt Level 5 (30792) Diagnoses Degenerative disc disease (DDD) of lumbar region with discogenic back pain and leg pain M51.362
== END 2024-11-29 15:19 | disposition home or self-care (01) ==
PROVIDERS: PCP Internal Medicine; Referring Provider Internal Medicine; Visit Provider Physician Assistant
DX: M51.362 Other intervertebral disc degeneration, lumbar region with discogenic back pain and lower extremity pain (principal)
CPT/HCPCS: 99205

== ENCOUNTER → 2024-11-29 15:10 | Outpatient (BNV) | payer MEDICARE, MEDICAID, SELFPAY | PROVIDERS: PCP Internal Medicine; Referring Provider Internal Medicine; Visit Provider Radiology Diagnostic Radiology | DX: M51.360 Other intervertebral disc degeneration, lumbar region with discogenic back pain only (principal) | CPT/HCPCS: 72110 ==

== ENCOUNTER 2024-12-21 12:58 | Outpatient (AMB) | payer MEDICARE, MEDICAID, SELFPAY ==
--- NOTE | 2024-12-21 13:11 | HO.SPINEOV ---
Intake Visit Reasons: discuss sx Intake Note: Mr. Willson is here today to discuss surgical options. Faith Healer Required: No Allergies No Known Allergies Allergy (Verified 11/29/24 14:04) Assessment & Plan Assessment & Plan (1) Scoliosis of lumbar region due to degenerative disease of spine in adult: Code(s): M41.56 - Other secondary scoliosis, lumbar region Category: Medical Plan Dear colleague, On 12/21/2024, I saw for a preoperative consult Roni Willson . As you know, he suffering from intractable low back pain. His history goes back to the s where he had his 1st low back surgery. He eventually underwent 5 lumbar decompressions from the levels L2-3, L3-4 and L4-5. The last surgery was in 2021. His main complaint is intractable low back pain. The pain is worse in the morning but continues to limit him during the day. He takes Vicodin 4 tablets a day, a lot of Motrin and gabapentin. He tried multiple back injections without long-lasting effect. The SI joint was also injected but only gave 50% relief. On exam, he has a reverse lumbar lordosis. He stands in the forward position with flexion of the hips. Flexion-extension is painful and limited. Straight leg raise produces back pain. We reviewed imaging together. His standing x-ray shows a lumbar degenerative scoliosis from L2-L5. His MRI shows severe lumbar degenerative disc disease L4-5 and L5-S1 and moderate degenerative disc disease L2-3 L3-4 and postoperative effects at L2-3, L3-4 and L4-5. I told him that he is not a candidate for additional decompressions. If we decide on surgery, then it should be a correction of the lumbar degenerative scoliosis and episcopal of his lordosis. This can be done through an oblique lumbar interbody fusion L2-S1. I described the procedure, possible complications and expected outcome. He understands that simple decompressions are no longer the answer and he is willing to undergo a minimally invasive correction of his degenerative scoliosis. I made it clear that history of multiple decompressions and long-term narcotic use are negative factors impacting the outcome. On the other hand, his symptoms are so severe that a spinal fusion could be beneficial. He was evaluated 2 years ago for shortness of breath by the watch and clock repairer and soldering machine feeder, including a stress test that revealed no abnormalities. He is HIV positive and known with MRSA, which will increase his infection risk. He wants to proceed after the discussion. He will be tentatively scheduled for January 17, depending on the availability off , the approach surgeon for the L5-S1 region. I spent 45 minutes in his consult for reviewing imaging, discussing plan of care and answering questions. Junaid Valdovinos MD, PhD Spine Fellowship Trained Neurosurgeon Director, [facility] [place] Coding Level of Care Code Est Pt Level 5 (63417) Diagnoses Scoliosis of lumbar region due to degenerative disease of spine in adult M41.56
--- OUTSIDE RECORDS SUMMARY | 2024-12-21 13:47 | XMS_ITS | Encounter Summary ---
Author Organization [facility] Address [address] [place] [address] Care Team Providers Care Test Fixture Assembler Name Role Phone Gregg Todd MD Primary Care Provider [phone] Reason for Referral * Consultation (Routine) - Closed Specialty Diagnoses / Procedures Referred By Contac t Referred To Contact Pain Medicine Diagnoses Postlaminectomy syndrome, not elsewhere classified Spinal stenosis of lumbar region Gregg Todd MD [address] [address] Phone: tel: fax: Edmond Mckeon MD [address] [place] [phone] Phone: tel: Referral ID Status Reason Start Date Expiration Date V isits Requested Visits Authorized [id number] Closed Specialty Services Required 11/18/2024 11/18/2025 12 12 Reason for Visit * Reason Onset Date Comments Referral 11/18/2024 Pain Medicine In [facility] Referral Encounter Details Date Type Department Care Team (Late st Contact Info) Description 11/18/2024 Telephone Internal Medicine - [place] [address] [phone] Gregg Todd MD 175 [facility] [address] [place] [address] Referral (Pain Medicine Insurance Referral) Social History Tobacco Use Types Packs/Day Years [...] for your loved ones. For example, child protection specialist or elderly care for an older adult? [...] What is your living situation? 0 09/27/2024 Interpersonal Safety Answer Date Record ed Physical Abuse 12/08/2024 Verbal Abuse 12/08/2024 Sex and Gender Information Value Date Recorded Sex Assigned at Male 08/25/2024 11:41 AM EDT Legal Sex Male 3:16 PM EST Gender Identity Male 08/25/2024 11:41 AM EDT Sexual Orientation Straight 09/27/2024 9: 37 PM EDT documented as of this encounter Functional Status * Are you [...] documented in this encounter Progress Notes * Nolvia Thompson - 11/18/2024 11:03 AM EDT What insurance does the patient have today? Payor: @[email or web address]/@[email or web address] Referrals cannot be processed if the insurance is not accurate. If the insurance listed above is NO BILLING INFORMATION FOUND FOR THIS ENCOUNTER then the patients correct insurance must be obtainedand registered in [place] or their referral can not be processed. Name of person calling to request this referral? Fax - [facility] Pain Management Referred To Provider (Include first and last name): Edmond Mckeon NPI (if known): [id number] Order/Specialty requested pain medicine Chief Complaint (Note: This is not a body part or a procedure): M96.1, M48.06 Has the patient seen provider for this problem/Dx before? Referred To Provider Address: Referred To Provider Referred To Provider Does patient have an appointment scheduled?: yes If yes, what is the date of the appointment?: 11/21/24 Is this a retro request? no Number of visits requested: 12 Is this appointment related to: MVA or worker compensation? no documented in this encounter Plan of Treatment Upcoming Encounters Date Type Department Care Team (Late st Contact Info) Description 12/29/2024 8:45 AM EDT Office Visit Pulmonolgy - [address] [phone] Felicia Sparrow MD [address] [place] [address] 03/30/2025 8:15 AM EDT Office Visit Internal Medicine - [address] [phone] Gregg Todd MD [address] [place] [address] Scheduled Referrals Name Type Priority Associated Diagnoses Order Schedule Ambulatory referral to Pain Medicine Outpatient Referral Routine Postlaminectomy syndrome, not elsewhere classified Spinal stenosis of lumbar region Expected: 11/18/2024, Expires: 11/18/2025 documented as of this encounter Visit Diagnoses Diagnosis Postlaminectomy syndrome, not elsewhere classified- Primary Spinal stenosis of lumbar region documented in this encounter Additional Health Concerns Assessment Noted Time PHQ-9 Depression Total Score: 10 025 9:46 PM EDT documented as of this encounter Care Teams Test Fixture Assembler Relationship Specialty Start Date End Date Gregg Todd MD [address] [address] PCP - General Internal Medicine 04/17/21 documented as of this encounter
--- OUTSIDE RECORDS SUMMARY | 2024-12-21 13:47 | XMS_ITS | Data Portability ---
Author Organization [place] - [facility], Allergy Address [address] [address] Care Team Providers Care Armor Senior Sergeant Name Role Phone HARIKA HOLLINS Primary Care Provider [phone] Assessment No assessment recorded. Plan of Treatment [...] (0.03 %) nasal spray 2024 025 [email or web address] [facility] #[id number], [address] [place], [address], 10/12/2024 11:09:37 Patient TargetsNo targets recorded. Patient Instructions Encounter Date Encounter Id Patient Instructions Last Modified By Organization Details Last Modified Time 07/11/2024 [id number] Note patient with chronic nasal obstruction for at least 1 year. He has been using oqsi-axn-srkeqkf decongestant preparations several times per day. Examination shows a septal deviation of the right side limiting endoscopy but no evidence of polyps. Suggest warm saline irrigations twice daily followed by ipratropium bromide 2 sprays each nostril 3 times daily. I will have him dilute the oxymetazoline or which ever bxpt-ili-qjvlymn decongestant preparation he is using 50% every 3 days. He will message me via the portal 3 weeks and if persistent sx consider CT scan [email or web address] Not available 07/11/2024 14:50:09 Reason for Referral None Reported. Results Created Date Observation Date Name Description Value Unit Range Abnormal Flag Note LastModifiedBy Organization Detail LastModifiedTime 08/17/1908/15/2024 CT, maxil natalic ial, w/o contr ast No observ ation record ed. GRAMERCY [facility] [address] [facility] [address], [place], [address], 08/17/2024 20:00:18 10/13/19 audio gram No observ ation record ed. BARCODE Not Available 2024 12:44:59 Result Notes None recorded. Problems Name Problem SNOMED Code Status Onset Date Resolution Date Notes Provider Name and Address Organization Details Recorded Time Bilateral tinnitus 73883592690 02 Active 2021 Tinnitus, bilateral ; Note: Date Diagnosed : 02/03/2022 3:11 PM (H93.13) Not Available formerly [facility] 4 02:53:58 Disorder of smell 218090119 Active 2021 Other disturban kris of smell and taste; Note: Date Diagnosed : 02/03/2022 3:11 PM (R43.8) Not Available formerly [facility] 4 02:54:02 Disorder of taste 171182840 Active 2021 Other disturban kris of smell and taste; Note: Date Diagnosed : 02/03/2022 3:11 PM (R43.8) Not Available [facility] 4 02:54:02 Sensorine ural hearing loss of bilateral ears 606593092 Active 2021 Sensorine ural hearing loss, bilateral ; Note: Date Diagnosed : 02/03/2022 3:11 PM (H90.3) Not Available formerly [facility] 4 02:54:01 Deviated nasal septum 219057572 Active 2024 RIC ALBARADO MD [address] [place] [address], [place], [address] , [facility] - [facility] 5 11:16:48 Chronic rhinitis 66600532 Active 2024 RIC ALBARADO MD [address], [place], [address] , [facility] - [facility] [place] 5 14:49:12 Vasomotor rhinitis 8673002 Active 2024 RIC ALBARADO MD [address], [place], [address] , [facility] - [facility] 5 14:49:16 Chronic sinusitis 88832200 Active 2024 RIC ALBARADO MD [address], [place], [place], [address] , [facility] - [facility] 5 09:02:12 Nasal congestio n 47186509 Active 2024 RIC ALBARADO MD [address] [facility] [place],[address], [place], [address] , [facility] - [facility] 11:16:52 Problem Notes None recorded. Procedures Surgical History Date Name Laterality Status Provider Name and Address Organization Details Recorded Time Air & Speech Audio with Tymps - 38103, 70237 & 59056 completed LATESHA SÁNCHEZ MA, CCC-A [address] [facility], [place], [address], [facility] - [facility] 10/12/2024 11:00:09 JMSNasal/Sinus Endoscopy completed RIC CUTLER MD [address],[place] [facility], [place], [address], [facility] - [facility] 07/11/2024 14:48:02 Imaging Results None recorded. Procedure [...] mg tablet 07/07 completed Medicati on ID: [id number] B rand Name: methocar bamol Se nd [...] mg tablet 07/07 completed Medicati on ID: [id number] B rand Name: meloxica m Send Method: E-Prescr ibed Sub s Allowed: subs OK [facility] : meloxica m Not Available [...] mg tablet 10/12 completed Medicati on ID: [id number] B rand Name: hydrocod one-acet aminophe n Send Method: E-Prescr ibed Sub s Allowed: subs OK [facility] : hydrocod one-acet aminophe n Not [...] mg tablet 10/12 completed Medicati on ID: [id number] B rand Name: hydroxyz ine HCl Send Method: E-Prescr ibed Sub s Allowed: subs OK [facility] : hydroxyz ine HCl Not Available [...] Updated DateTime 07/11/2024 177.8 cm 28 kg/m2 95525.51 g Lea Sierra [facility] 07/11/2024 14:38:46 Date Recorded Body height Body mass index (BMI) Body weight Systolic And Diastolic Provider Name and Address Organization Details Last Updated DateTime 10/12/2024 177.8 cm 28 kg/m2 29628.51 g 122/74 mm[Hg] Beatrice Lynn [facility] 10/12/2024 11:08:18 Social History None recorded. Functional Status None recorded. Mental Status None recorded. Family History Nothing Reported. Medical History Condition Response Allergies/Hayfever N Heart Problems N Anxiety Y Tonsil Infections N Emphysema N Migraines N Thyroid Problems N Depression Y COPD N Developmental Delay N Glaucoma N Nasal or Sinus Problems Y Anemia N Immune System Disorder N Anesthesia Complications N Heart Attack (HI) N Other Skin Condition N Diabetes N [...] SNOMED-CT Code Diagnosis ICD10 Code Diagnosis Note [id number] RIC ALBARADO MD [facility] [address] [facility] [place] [address] 07/11/2024 14:12:51 07/11/2024 14:52:00 Deviated nasal septum 396964228 J34.2 Chronic rhinitis 6521277 6 J31.0 Bilateral tinnitus 37671 [address] 102 H93.13 f/u with Audio [id number] RIC ALBARADO MD [facility] [address] [facility] [place] [address] 10/12/2024 10:19:45 10/12/2024 11:22:10 Bilateral tinnitus 8484530767 102 H93.13 f/u with Audio in 1 year Sensorineu ral hearing loss of bilateral ears 759736241 H90.3 Hearing stable Deviated nasal septum 12 6562418 J34.2 Nasal congestion 2614799 0 R09.81 At the present time the [...] Gunn Member ID Guarantor Name 10/12/2024 1 [facility] - MEDICARE PREFERRED (MEDICARE REPLACEMENT HMO) [facility] Roni Willson [id number] Roni Willson 10/12/2024 2 [place] [facility] Roni Willson [id number] Roni Willson Notes Date Note Type Note [...] more. RIC CUTLER MD 100 [facility],[address], [address], [place] - [facility] 07/11/2024 14:51:18 10/12/2024 text/html Patient notes persistent chronic nasal congestion. He has been off the micy-ymk-yabkggz decongestant preparations. CT scan did not show any significant sinus disease. He feels the nasal congestion is not bad enough to warrant any intervention. He still notes bilateral tinnitus but hearing is stable. RIC CUTLER MD 100 [facility],[place] [address], [place], [address], [facility] - [facility] 10/12/2024 11:17:38
--- OUTSIDE RECORDS SUMMARY | 2024-12-21 13:47 | XMS_ITS | Clinical Summary ---
Author Organization [facility] Address [address] [place] [address] Care Team Providers Care Metal Pickling Equipment Operator Name Role Phone Gregg Todd MD [...] 53 06/29/2023 8:22 AM EST Temperature 36.6 C (97.9 F) 06/29/2023 8:22 AM EST Respiratory Rate - - Oxygen Saturation 100% [...] Cancer Screening (Colonoscopy) 02/28/2009 Influenza Vaccine (#1) 2025 , 03/20/2020 DTap / Tdap / Td (3 - Td or Tdap) 10/31/2027 10/30/2017, 07/29/2012 RSV Adult > 60+ Yrs or (1 - 1-dose 75+ series) 02/28/2039 Hepatitis B Vaccines Completed 02/20/2017, 09/12/2016, 08/15/2016 Shingrix-Zoster Vaccine Completed 06/16/19 20, 01/19/2019 RSV Ped < 20 months Aged Out No longe r eligible based on patient's age to complete this topic Care Teams Metal Pickling Equipment Operator Relationship Specialty Start Date End Date Gregg Todd MD PCP - General Internal Medicine 06/29/23
== END 2024-12-21 14:26 | disposition home or self-care (01) ==
LOC: HO.HNS 12:58
PROVIDERS: PCP Internal Medicine; Visit Provider Neurological Surgery
DX: M41.56 Other secondary scoliosis, lumbar region (principal)
CPT/HCPCS: 99215

== ENCOUNTER → 2024-12-21 12:58 | Outpatient (BNVA) | payer MEDICARE, MEDICAID, SELFPAY | PROVIDERS: PCP Internal Medicine; Visit Provider Neurological Surgery | DX: Z01.818 Encounter for other preprocedural examination (principal); M54.50 Low back pain, unspecified; M41.56 Other secondary scoliosis, lumbar region | CPT/HCPCS: 99212 ==

== ENCOUNTER 2024-12-26 09:24 | Outpatient (AMB) | payer MEDICARE, MEDICAID, SELFPAY ==
--- NOTE | 2024-12-26 09:32 | A.OFFVIS_ITS ---
Vital Signs 12/26/24 09:33 Height 5 ft 10 in Weight 185 lb BMI 26.5 BP 110/69 Blood Pressure Location Lt brachial Position Sitting Respiration 1 L Pulse 59 Pulse Source Pulse Oximeter Pulse Oximetry (%) 97 Oxygen Delivery Method Room Air Intake Visit Reasons: Pill count Intake Note: Pt states he last took vicodin 12/26/24 @ 7am It Auditor Required: No Allergies No Known Allergies Allergy (Verified 12/26/24 09:34) HPI HPI Pill count: Details: History of Present Illness The patient is a 59-year-old male presenting with chronic back pain and preparation for extensive spine surgery. The patient has a history of chronic back pain, which has been progressively worsening, leading to the decision for surgical intervention. The planned surgery involves the placement of four cages, two rods, and ten screws to stabilize the spine. The patient also reports shoulder pain and tingling sensations, which may be related to his posture and spinal issues. He experiences relief when his posture is corrected, suggesting a possible link between his spinal alignment and shoulder discomfort. The patient has previously been managed with oxycodone and hydrocodone for pain relief, with adjustments made over time to address efficacy and side effects. He has no known allergies to these medications and has tolerated them well in the past. Pain Description - Chronic back pain with progressive worsening - Shoulder pain associated with posture - Tingling sensation relieved by posture correction Physical Exam - Appears afebrile. - Alert and oriented. - Mood and affect appropriate. - Follows and participates in conversation appropriately. - Respiratory effort is unlabored. - Able to transition from sit to stand unassisted. - Ambulates with bilaterally normal heel strike and toe off. - Able to stand and walk on toes and heels. Results Pain Management - Affect: Patient expresses concern about ongoing pain and upcoming surgery. - Analgesia: Currently using oxycodone and hydrocodone, with plans for postoperative pain management. - Adverse Effects: No known allergies or adverse reactions to current medications. - Activities of Daily Living: Pain impacts posture and daily activities, with some relief from posture correction. - Aberrant Drug Related Behaviors: No evidence of misuse or abuse of prescribed medications. Physical Exam Vital Signs: Last Vital Signs Pulse 59 12/26/24 09:33 Resp 1 L 12/26/24 09:33 BP 110/69 12/26/24 09:33 Pulse Ox 97 12/26/24 09:33 Oxygen Delivery Method Room Air 12/26/24 09:33 BMI result Body Mass Index 26.5 Assessment & Plan Assessment & Plan (1) alf (current) use of opiate analgesic: Code(s): Z79.891 - alf (current) use of opiate analgesic Category: Medical (2) Failed back syndrome: Code(s): M96.1 - Postlaminectomy syndrome, not elsewhere classified Category: Medical Plan Plan - Plan for upcoming spine surgery on January 17, involving stabilization with cages, rods, and screws. - Preoperative pain management with hydrocodone, transitioning to oxycodone postoperatively as prescribed by the surgeon. Resume baseline hydrocodone dose once post-op recovery is deemded complete. - Patient to inform pharmacist of surgery date for appropriate partial refill of the current script with transition to post-op oxycodone following the surgery. - Follow-up appointment scheduled for February to assess recovery and ongoing pain management needs. Patient was informed and verbally consented to the use of an ambient scribe for clinic note documentation during this visit. Discussion Notes I discussed with the patient the upcoming spine surgery scheduled for January 17, which will involve stabilization with cages, rods, and screws. We reviewed the pain management plan, including the use of hydrocodone preoperatively and transitioning to oxycodone postoperatively. I advised the patient to inform the pharmacist about the surgery date to ensure proper medication management and avoid any issues with prescriptions. We also scheduled a follow-up appointment for February to evaluate the patient's recovery and ongoing pain management needs. Patient Instructions - Inform your pharmacist about the surgery date for proper medication management. - Follow the prescribed pain management plan, transitioning from hydrocodone to oxycodone as directed. - Attend the follow-up appointment in February to assess recovery and pain management. Medications: Refilled hydrocodone-acetaminophen 5-325 mg Partial Fill upon patient request. 1 tab PO Q4-6H PRN 180 tabs 0RF pain Coding Level of Care Code Est Pt Level 4 (95330) Diagnoses joint terminal attack controller (current) use of opiate analgesic Z79.891 Failed back syndrome M96.1
[2024-12-26 09:33] VITALS: BP 110/69; PULSE 59; RESP 1; O2SAT 97; BMI 26.5
--- OUTSIDE RECORDS SUMMARY | 2024-12-26 09:49 | XMS_ITS | Data Portability ---
Author Organization [place] - [facility], Allergy Address [address] [address] Care Team Providers Care Car Body Inspector Name Role Phone HARIKA HOLLINS Primary Care [...] (0.03 %) nasal spray 2024 025 [email or web address] [facility]/Pharmacy #[id number], [address] [place], [address], 10/12/2024 11:09:37 Patient TargetsNo targets recorded. Patient Instructions Encounter Date Encounter Id Patient Instructions Last Modified By Organization Details Last Modified Time 07/11/2024 [id number] Note patient with chronic nasal obstruction for at least 1 year. He has been using hift-tyj-fdzvhbl decongestant preparations several times per day. Examination shows a septal deviation of the right side limiting endoscopy but no evidence of polyps. Suggest warm saline irrigations twice daily followed by ipratropium bromide 2 sprays each nostril 3 times daily. I will have him dilute the oxymetazoline or which ever awxh-xyd-dgsphwc decongestant preparation he is using 50% every [...] contr ast No observ ation record ed. COWD[facility] [place] [id number] [facility] [address], [place], [address], 08/17/2024 20:00:18 10/13/19 audio gram No observ ation record ed. BARCODE Not Available 2024 12:44:59 Result Notes None recorded. Problems Name Problem SNOMED Code Status Onset Date Resolution Date Notes Provider Name and Address Organization Details Recorded Time Bilateral tinnitus 81909352684 02 Active 2021 Tinnitus, bilateral ; Note: Date Diagnosed : 02/03/2022 3:11 PM (H93.13) Not Available [facility] 4 02:53:58 Disorder of smell 572039677 Active 2021 Other disturban kris of smell and taste; Note: Date Diagnosed : 02/03/2022 3:11 PM (R43.8) Not Available [facility] 4 02:54:02 Disorder of taste 962827908 Active 2021 Other disturban kris of smell and taste; Note: Date Diagnosed : 02/03/2022 3:11 PM (R43.8) Not Available [facility] 4 02:54:02 Sensorine ural hearing loss of bilateral ears 938594405 Active 2021 Sensorine ural hearing loss, bilateral ; Note: Date Diagnosed : 02/03/2022 3:11 PM (H90.3) Not Available [facility] 4 02:54:01 Deviated nasal septum 918964182 Active 2024 RIC ALBARADO MD [address] [place] [address], [place], [address] , [facility] - [facility] 5 11:16:48 Chronic rhinitis 16965658 Active 2024 RIC ALBARADO MD [address], [place], [address] , [facility] - [facility] [place] 5 14:49:12 Vasomotor rhinitis 8801818 Active 2024 RIC ALBARADO MD [address] [address], [place], [address] , [facility] - [facility] [place] 5 14:49:16 Chronic sinusitis 09036572 Active 2024 RIC ALBARADO MD [address], [place], [place], [address] , [facility] - [facility] [place] 5 09:02:12 Nasal congestio n 04296300 Active 2024 RIC ALBARADO MD [address], [place], [address] , [facility] - [facility] [place] 11:16:52 Problem Notes None recorded. Procedures Surgical History Date Name Laterality Status Provider Name and Address Organization Details Recorded Time Air & Speech Audio with Tymps - 40003, 30832 & 21974 completed LATESHA SÁNCHEZ MA, CCC-A [address],[place] [facility], [place], [address], [facility] - [facility] 10/12/2024 11:00:09 JMSNasal/Sinus Endoscopy completed RIC CUTLER MD [address],[place] [facility], [place], [address], [facility] - [facility] [place] 07/11/2024 14:48:02 Imaging Results None recorded. Procedure [...] mg tablet 07/07 completed Medicati on ID: [id number] B rand Name: methocar bamol Se nd [...] mg tablet 07/07 completed Medicati on ID: [id number] B rand Name: meloxica m Send Method: E-Prescr ibed Sub s Allowed: [facility] [place] [facility]oxica m Not Available [...] mg tablet 10/12 completed Medicati on ID: [id number] B rand Name: hydrocod one-acet aminophe n Send Method: E-Prescr ibed Sub s Allowed: subs [place] [facility] : hydrocod one-acet aminophe n [...] mg tablet 10/12 completed Medicati on ID: [id number] B rand Name: hydroxyz ine HCl Send Method: E-Prescr ibed Sub s Allowed: subs [place] [facility] : hydroxyz ine HCl Not [...] Updated DateTime 07/11/2024 177.8 cm 28 kg/m2 89800.51 g Lea Sierra [facility] 07/11/2024 14:38:46 Date Recorded Body height Body mass index (BMI) Body weight Systolic And Diastolic Provider Name and Address Organization Details Last Updated DateTime 10/12/2024 177.8 cm 28 kg/m2 82451.51 g 122/74 mm[Hg] Beatrice Lynn [facility] 10/12/2024 11:08:18 Social History None recorded. [...] Disorder N Anesthesia Complications N Heart Attack ([place]) N Other Skin Condition N Diabetes N [...] SNOMED-CT Code Diagnosis ICD10 Code Diagnosis Note [id number] RIC ALBARADO MD [facility] [address] [place] [address] 07/11/2024 14:12:51 07/11/2024 14:52:00 Deviated nasal septum 987013081 J34.2 Chronic rhinitis 7349587 6 J31.0 Bilateral tinnitus 92655 60231 102 H93.13 f/u with Audio [id number] RIC ALBARADO MD [facility] [address] [place] [address] 10/12/2024 10:19:45 10/12/2024 11:22:10 Bilateral tinnitus 2868112818 102 H93.13 f/u with Audio in 1 year Sensorineu ral hearing loss of bilateral ears 286926534 H90.3 Hearing stable Deviated nasal septum 12 4404606 J34.2 Nasal congestion 8153508 0 R09.81 At the present time the [...] Gunn Member ID Guarantor Name 10/12/2024 1 [facility] - MEDICARE PREFERRED (MEDICARE REPLACEMENT HMO) [facility] Roni Willson [id number] Roni Willson 10/12/2024 2 [place] Roni Willson [id number] Roni Willson Notes Date Note Type Note [...] day or more. RIC CUTLER MD [address] [facility],[address], [address], [place] - [facility] 07/11/2024 14:51:18 10/12/2024 text/html Patient notes persistent chronic nasal congestion. He has been off the suqj-tkd-tgijbbk decongestant preparations. CT scan did not show any significant sinus disease. He feels the nasal congestion is not bad enough to warrant any intervention. He still notes bilateral tinnitus but hearing is stable. RIC CUTLER MD [address] [facility],[place] [address], [place], [address], [facility] - [facility] 10/12/2024 11:17:38
--- OUTSIDE RECORDS SUMMARY | 2024-12-26 09:50 | XMS_ITS | Clinical Summary ---
Author Organization LL 175 [facility] Address [address] [place] [address] Phone Care Team Providers Care Product Craftsman Name Role Phone Gregg Todd MD Primary Care Provider [phone] Allergies No known active allergies Medications bictegravir-emt ricitabine-teno fovir alafenamide (Biktarvy) 50-200-25 mg per tablet Take [...] 1 TABLET AT BEDTIME 08/15/19 21 Active HYDROcodone-efrain taminophen (NORCO) 7.5-325 mg per tablet 1 TAB BY MOUTH EVERY 6 HOURS NEEDED FOR SEVERE PAIN 10/25/19 22 Active lidocaine (LIDODERM) 5 % patch 02/06/20 22 Active mupirocin (BACTROBAN) 2 % ointment APPLY SPARINGLY TO AFFECTED AREA(S) 3 TIMES A DAY 05/23/20 11 Active tiZANidine (ZANAFLEX) 4 mg tablet TAKE 2 TABLETS BY MOUTH TWICE A DAY NEEDED FOR MUSCLE SPASMS 02/03/20 24 Active zolpidem (AMBIEN) 5 mg tablet TAKE 1 TABLET BY MOUTH EVERY DAY AT BEDTIME 04/11/20 21 Active fluticasone furoate (Arnuity Ellipta) 100 mcg/actuation blister with device inhaler Inhale 1 puff by mouth 1 (one) time each day. 1 each 06/30/19 25 2025 Active beclomethasone dipropionate (Qvar RediHaler) 80 mcg/actuation HFA aerosol breath activated inhaler Inhale 2 puffs by mouth 2 (two) times a day. 3 each 3 07/01/19 25 2025 Active fluticasone propionate (FLONASE) 50 mcg/actuation nasal spray USE 1 SPRAY INTO EACH NOSTRIL TWICE A DAY 48 mL 1 07/18/19 25 Active tamsulosin (FLOMAX) 0.4 mg 24 hr capsule TAKE 1 CAPSULE BY MOUTH 30 MINUTES AFTER SAME MEAL EVERY DAY. 90 capsule 1 07/25/19 25 Active albuterol HFA (PROAIR HFA ; PROVENTIL HFA ; VENTOLIN HFA) 90 mcg/actuation inhalerIndicati ons:Chronic bronchitis, unspecified chronic bronchitis type (CMS/HCC V24, CMS/HCC V28) Inhale 2 puffs by mouth every 6 (six) hours if needed for wheezing. 1 each 08/30/19 25 2025 Active simvastatin (ZOCOR) 20 mg tablet Take 1 tablet (20 mg total) by mouth at bedtime. 90 tablet 1 10/27/19 25 Active terbinafine (LamISIL) 250 mg tablet TAKE 1 TABLET BY MOUTH EVERY DAY 30 tablet 2 11/01/19 25 Active polyethylene glycol (Golytely) 236-22.74-6.74 -5.86 gram solution Take 4L by mouth once for one dose. May substitue any PEG. Starting at 6PM the night before your procedure drink 1 8oz glasses at your own pace until you complete half of the gallon. Finish 2nd half of the gallon 5 hours before your procedure. 4000 mL 11/25/19 25 Active bisacodyL (DULCOLAX) 5 mg EC tablet Take 2 tablets by mouth right before beginning bowel prep. See instructions provided by the office 2 tablet 11/25/19 25 Active omeprazole (PriLOSEC) [address] capsule TAKE 1 CAPSULE BY MOUTH EVERY DAY 90 capsule 1 11/29/19 25 Active meclizine (ANTIVERT) 25 mg tablet TAKE 1 TABLET BY MOUTH 3 TIMES A DAY IF NEEDED FOR DIZZINESS. 90 tablet 1 12/20/19 25 Active omeprazole (PriLOSEC) [address] capsule TAKE 1 CAPSULE BY MOUTH EVERY DAY 90 capsule 1 05/30/20 24 2024 Discontinued meclizine (ANTIVERT) 25 mg tablet Take 1 tablet (25 mg total) by mouth 3 (three) times a day if needed for dizziness. 90 tablet 1 10/19/19 25 2024 Discontinued Active Problems Problem Noted Date Diagnosed [...] the kidneys. He states he understands. Sacroiliitis (CMS/[facility] V24) 02/07/2022 Overview (04/25/2024): Last Assessment & Plan: Mr. Willson is being followed at [facility] by Dr. Carreno where he [...] Encounters Date Type Department Care Team Description 12/08/2024 8:39 AM EDT Anesthesia Event [facility] Endoscopy [address] [place] [address] Refugio Monte MD 12/08/2024 7:42 AM EDT - 12/08/2024 11:59 PM EDT Hospital Encounter [facility] [address] [place] [address] Alok Mccormack MD Colon cancer screening Discharge Disposition: Home or Self Care 11/29/2024 Telephone Internal Medicine - [place] 175 [facility] [address] [place] [address] Gregg Todd MD Referral (Referral to Neurosurgery) 11/18/2024 Telephone Internal Medicine - [place] 175 [facility] [address] [place] [address] Gregg Todd MD Referral (Pain Medicine Insurance Referral) 09/28/2024 8:15 AM EDT Office Visit Internal Medicine - [place] 175 [facility] [address] [place] [address] Gregg Todd MD Mild intermittent asthma without complication (Primary Dx); Current mild episode of major depressive disorder, unspecified whether recurrent (CMS/HCC V24); Hypercholesterolemia ; Nail dystrophy from Last 3 Months Immunizations Name Administration Dates Next Due DTaP (Infanrix) 6wks to less than 7yo 07/29/2012 Hepatitis A Adult (Havrix; V aqta) 19yo and older 08/10/2015 Hepatitis B (Jyrlpgu-L-Zndcj , Recombivax HB-Adult) 19yo and older 02/20/2017,09/12/2016,08/15/2016 [...] COMMENT: L2-3 partial BACK SURGERY PROCEDURE:BACK SURGERY L4-L5, L5 S1 COLONOSCOPY PROCEDURE:COLONOSCOPY BLEPHAROPLASTY Medical History Medical History Date Comments Internal hemorrhoids 02/02/2019 DX:Internal hemorrhoids Degenerative lumbar disc 01/04/2019 DX:Dege nerative lumbar disc HIV (human immunodeficiency virus infection) ([facility] V24, [facility] V28) 01/04/2019 DX:HIV (human im munodeficiency virus infection) ([facility]) Hypertension 01/04/2019 DX:Hypertension Spinal stenosis, lumbar 02/02/2019 DX:Spina l stenosis, lumbar; COMMENT: 06/2018 S/p L2-3 partial laminectomy Anxiety 09/10/2017 DX:Anxiety Back pain, chronic 09/10/2017 DX:Back pain, chronic Benign prostate hyperplasia 12/25/2017 DX:B enign prostate hyperplasia Chronic sinusitis 07/01/2013 DX:Chronic sin usitis Depression 11/17/2017 DX:Depression ED (erectile dysfunction) 11/17/2017 DX:ED (erectile dysfunction) Elevated lipase 12/25/2017 DX:Elevated lipa se Hepatic hemangioma 04/09/2016 DX:Hepatic he mangioma Hyperlipidemia 11/28/2016 DX:Hyperlipidemi a Memory loss 11/17/2017 DX:Memory loss Ulcerative esophagitis 10/02/2015 DX:Ulcera tive esophagitis Vitamin D deficiency 03/06/2015 DX:Vitamin D deficiency HSV-1 (herpes simplex virus 1) infection 06/01/2019 DX:HSV-1 (herpes simplex vir us 1) infection History of MRSA infection 06/01/2019 DX:His tory of MRSA infection Insomnia 06/01/2019 DX:Insomnia Kidney stone 06/01/2019 DX:Kidney stone GERD (gastroesophageal reflu x disease) 06/01/2019 DX:GERD (gastroesophageal re flux disease) Chronic shoulder pain 07/25/2019 DX:Chronic shoulder pain; COMMENT: bilaterally Hypertension DX:Hypertension HIV (human immunodeficiency virus infection) ([facility] V24, [facility] V28) DX:HIV (human im munodeficiency virus infection) ([facility]) Hemorrhoid Anemia Family History Medical History Relation Name Comments [...] your loved ones. For example, child care group leader or elderly care for an older adult? [...] Sign Reading Time Taken Comments Blood Pressure 128/72 12/08/2024 9:19 AM EDT Pulse 68 12/08/2024 9:19 AM EDT Temperature 36.4 C (97.6 F) 12/08/2024 9:02 AM EDT Respiratory Rate 18 12/08/2024 9:19 AM EDT Oxygen Saturation 100% 12/08/2024 9:19 AM EDT Inhaled Oxygen Concentration - - Weight 88.5 kg (195 lb) 12/08/2024 8:28 AM EDT Height 177.8 cm (5' 10 ) 12/08/2024 8:28 AM EDT Body Mass Index 27.98 12/08/2024 8:28 AM EDT Plan of Treatment Upcoming Encounters Date Type Department Care Team (Late st Contact Info) Description 12/29/2024 8:45 AM EDT Office Visit Pulmonolgy - [address] [phone] Felicia Sparrow MD [address] [place] [address] 03/30/2025 8:15 AM EDT Office Visit Internal Medicine - [address] [phone] Gregg Todd MD [address] [place] [address] Health Maintenance Due Date Last Done Comments MMR Vaccines (1 of 2 - Risk 2-dose series) 02/28/1982 Pneumococcal Vaccine: 50+ Years (1 of 2 - PCV) 02/28/1983 Hepatitis A Vaccines (2 of 2 - Risk 2-dose series) 02/08/2016 08/10/2015 Meningococcal ACWY Vaccine (2 - Risk 2-dose series) 12/09/2018 10/14/2018 Medicare Annual Wellness Visit 05/24/2022 COVID-19 Vaccine (4 - season) 2024 03/24/2023, 10/18/2020, 09/20/2020 RSV Immunization Adult Patients (1 - Risk 60-74 years 1-dose series) 2024 Influenza Vaccine (#1) 2025 04/22/2021, 2019 Hypertension/CHF/CAD Annual BMP Blood Test 09/21/2025 09/21/2024, 08/23/2024, 04/27/2024, Additional history exists Depression Screening 09/27/2025 09/27/2024 Social Influencers of Health Screening 09/27/2025 09/27/2024 DTaP,Tdap,and Td Vaccines (3 - Td or Tdap) 10/31/2027 10/30/2017, 07/29/2012 Cholesterol Screening (Lipid Panel) 08/23/2029 08/23/2024, 04/27/2024, 09/29/2023 Colorectal Cancer Screening: Colonoscopy 12/08/2034 12/08/2024, 09/22/2014 Hepatitis B Vaccines Completed 02/20/2017, 09/12/2016, 08/15/2016 [...] Procedure Name Priority Date/Time Associated Diagnosis Comments COLONOSCOPY Routine 12/08/2024 8:58 AM EDT Colon cancer screening EXTERNAL XRAY REPORT 11/29/2024 EXTERNAL MRI REPORT 09/29/2024 EXTERNAL MRI REPORT 09/29/2024 COMPREHENSIVE METABOLIC PANEL STAT 09/21/2024 11:11 AM EDT HEPATITIS PANEL, ACUTE WITH REFLEX TO CONFIRMATION Routine 08/23/2024 9:33 AM EDT Elevated liver function tests LIPID PANEL WITH REFLEX TO DIRECT LDL Routine 08/23/2024 9:33 AM EDT Elevated liver function tests Human immunodeficiency virus (HIV) disease (CMS/HCC V24, CMS/HCC V28) Obesity, unspecified from Last 3 Months or Most Recently Relevant to Health Maintenance Results * COLONOSCOPY Anesthesia - MAC; [facility] ENDOSCOPY (12/08/2024 8:58 AM EDT) Anatomical Region Laterality Modality Other 12/08/2024 8:30 AM EDT Impressions 12/08/2024 8:59 AM EDT - Internal hemorrhoids. - Diverticulosis in the sigmoid colon. - No specimens collected. Recommendation: - Use fiber, for example Citrucel, Fibercon, Konsyl or Metamucil. - Repeat colonoscopy in 10 years for screening purposes. Narrative 12/08/2024 8:59 AM EDT [facility] GI Patient Name: Roni Wlilson Procedure Date: 12/08/2024 8:30 AM Date of : 1965 Age: 59 Gender: Male Note Status: Finalized Attending MD: Alok Mccormack MD, Procedure Date No Time: 12/08/2024 Procedure: Colonoscopy Indications: Screening for colorectal malignant neoplasm Providers: Alok Mccormack MD Referring MD: Alok Mccormack MD Medicines: Propofol per Anesthesia Complications: No immediate complications. Estimated Blood Loss: Estimated blood loss: none. Procedure: Pre-Anesthesia Assessment: - ASA Grade Assessment: III - A patient with severe systemic disease. After I obtained informed consent, the scope was passed under direct vision. Throughout the procedure, the patient's blood pressure, pulse, and oxygen saturations were monitored continuously.The Olympus Pediatric Colonosocpe was introduced through the anus and advanced to the cecum, identified by appendiceal orifice and ileocecal valve. The colonoscopy was performed without difficulty. The patient tolerated the procedure well. The quality of the bowel preparation was good. Findings: The perianal and digital rectal examinations were normal. Internal hemorrhoids were found during retroflexion. The hemorrhoids were Grade I (internal hemorrhoids that do not prolapse). A few diverticula were found in the sigmoid colon. Procedure Code(s): --- Professional --- G0121, Colorectal cancer screening; colonoscopy on individual not meeting criteria for high risk Diagnosis Code(s): --- Professional --- Z12.11, Encounter for screening for malignant neoplasm of colon K64.0, First degree hemorrhoids K57.30, Diverticulosis of large intestine without perforation or abscess without bleeding CPT copyright 2020 [employer]. All rights reserved. The codes documented in this report are preliminary and upon procurement intern review may be revised to meet current compliance requirements. Alok Mccormack MD 12/08/2024 8:59:00 AM This report has been signed electronically.Alok Mccormack MD Number of Addenda: 0 Note Initiated On: 12/08/2024 8:30 AM Scope In: Scope Out: Endoscopy Department at [facility] - [address] [place] [phone] Procedure Note Alok Mccormack MD - 12/08/2024 [facility] GI Patient Name: Roni Willson Procedure Date: 12/08/2024 8:30 AM Date of : 1965 Age: 59 Gender: Male Note Status: Finalized Attending MD: Alok Mccormack MD, Procedure Date No Time: 12/08/2024 Procedure: Colonoscopy Indications: Screening for colorectal malignant neoplasm Providers: Alok Mccormack MD Referring MD: Aolk Mccormack MD Medicines: Propofol per Anesthesia Complications: No immediate complications. Estimated Blood Loss: Estimated blood loss: none. Procedure: Pre-Anesthesia Assessment: - ASA Grade Assessment: III - A patient with severe systemic disease. After I obtained informed consent, the scope was passed under direct vision. Throughout theprocedure, the patient's blood pressure, pulse, and oxygen saturations were monitored continuously.The Olympus Pediatric Colonosocpe was introduced through theanus and advanced to the cecum, identified byappendiceal orifice and ileocecal valve. The colonoscopy was performed without difficulty. The patient tolerated the procedure well. The quality of the bowel preparation was good. Findings: The perianal and digital rectal examinations were normal. Internal hemorrhoids were found duringretroflexion. The hemorrhoids were Grade I (internal hemorrhoids that do not prolapse). A few diverticula were found in the sigmoidcolon. Procedure Code(s): --- Professional --- G0121, Colorectal cancer screening; colonoscopy on individual not meeting criteria for high risk Diagnosis Code(s): --- Professional --- Z12.11, Encounter for screening for malignantneoplasm of colon K64.0, First degree hemorrhoids K57.30, Diverticulosis of large intestine without perforation or abscess without bleeding CPT copyright 2020 [employer]. All rights reserved. The codes documented in this report are preliminary and upon procurement intern reviewmay be revised to meet current compliance requirements. Alok Mccormack MD 12/08/2024 8:59:00 AM This report has been signed electronically.Alok Mccormack MD Number of Addenda: 0 Note Initiated On: 12/08/2024 8:30 AM Scope In: Scope Out: Endoscopy Department at [facility] - [address] [place] [phone] IMPRESSION: - Internal hemorrhoids. - Diverticulosis in the sigmoid colon. - No specimens collected. Recommendation: - Use fiber, for example Citrucel, Fibercon, Konsylor Metamucil. - Repeat colonoscopy in 10 years for screening purposes. Alok Mccormack MD GI~PROCEDURE ORDERABLES Final Re sult * External Xray Report (11/29/2024) Anatomical Region Laterality Modality Radiographic Eleanor ging Provider [facility] XR PROCEDURES Final Result * External MRI Report (09/29/2024) Only the most recent of2 resultswithin the time period is included. Anatomical Region Laterality Modality Magnetic Resonan ce Provider [facility] MRI PROCEDURES Final Result * Comprehensive metabolic panel (09/21/2024 11:11 AM EDT) Sodium 141 133 - 145 mmol/L LAB CHEMISTRY METHOD 09/21/2024 1:06 PM [facility] Potassium 4.1 3.5 - 5.5 mmol/L LAB CHEMISTRY METHOD 09/21/2024 1:06 PM [facility] Chloride 107 96 - 110 mmol/L LAB CHEMISTRY METHOD 09/21/2024 1:06 PM [facility] CO2 26 21 - 32 mmol/L LAB CHEMISTRY METHOD 09/21/2024 1:06 PM [facility] Anion Gap 8 3 - 11 LAB CHEMISTRY METHOD 09/21/2024 1:06 PM [facility] Glucose 95 70 - 100 mg/dL LAB CHEMISTRY METHOD 09/21/2024 1:06 PM [facility] BUN 13 5 - 25 mg/dL LAB CHEMISTRY METHOD 09/21/2024 1:06 PM [facility] Creatinine 0.88 0.70 - 1.30 mg/dL LAB CHEMISTRY METHOD 09/21/2024 1:06 PM [facility] eGFR 98 >=60 mL/min/1. 73m2 LAB CHEMISTRY METHOD 09/21/2024 1:06 PM [facility] Comment:Calculation based on the Chronic Kidney Disease Epidemiology Collaboration (CKD-EPI) equation refit without adjustment for race. BUN/Creatinine Ratio 14.8 LAB CHEMISTRY METHOD 09/21/2024 1:06 PM [facility] Calcium 9.4 8.5 - 10.5 mg/dL LAB CHEMISTRY METHOD 09/21/2024 1:06 PM [facility] AST (SGOT) 39 10 - 42 unit/L LAB CHEMISTRY METHOD 09/21/2024 1:06 PM [facility] ALT (SGPT) 46 10 - 60 unit/L LAB CHEMISTRY METHOD 09/21/2024 1:06 PM [facility] Alkaline Phosphatase 85 42 - 121 unit/L LAB CHEMISTRY METHOD 09/21/2024 1:06 PM [facility] Total Protein 6.8 6.0 - 8.0 g/dL LAB CHEMISTRY METHOD 09/21/2024 1:06 PM [facility] Albumin 3.8 3.2 - 5.0 g/dL LAB CHEMISTRY METHOD 09/21/2024 1:06 PM [facility] Total Bilirubin 0.6 0.0 - 1.4 mg/dL LAB CHEMISTRY METHOD 09/21/2024 1:06 PM [facility] Blood Venous blood specimen / Unknown Venipuncture / Unknown 09/21/2024 11:11 AM EDT 09/21/2024 11:49 AM EDT us Baldomero Bates MD LAB BLOOD ORDERABLES Final Resu lt [facility] [address] [place] [address], [place] [phone] * (ABNORMAL) Lipid panel with reflex to direct LDL (08/23/2024 9:33 AM EDT) Cholesterol 210(H) 0 - 200 mg/dL LAB CHEMISTRY METHOD 08/23/2024 11:24 AM [facility] Triglycerides 154(H) 0 - 150 mg/dL LAB CHEMISTRY METHOD 08/23/2024 11:24 AM [facility] HDL 58 >=40 mg/dL LAB CHEMISTRY METHOD 08/23/2024 11:24 AM [facility] LDL Calculated 121(H) 0 - 100 mg/dL LAB CHEMISTRY METHOD 08/23/2024 11:24 AM [facility] VLDL Cholesterol Yovany 30.8 mg/dL LAB CHEMISTRY METHOD 08/23/2024 11:24 AM EDT [facility] Non HDL Chol. (LDL+VLDL) 152(H) <145 mg/dL LAB CHEMISTRY METHOD 08/23/2024 11:24 AM EDT [facility] Chol/HDL Ratio 3.6 0.0 - 4.4 LAB CHEMISTRY METHOD 08/23/2024 11:24 AM EDT [facility] Blood Venous blood specimen / Unknown Venipuncture / Unknown 08/23/2024 9:33 AM EDT 08/23/2024 10:35 AM EDT us Юлия Angel MD LAB BLOOD ORDERABLES Una l Result Performing Organization Address City/[facility]/ZIP Co de Phone Number [facility] [address] [place] [address], [place] [phone] * Hepatitis panel, acute with reflex to confirmation (08/23/2024 9:33 AM EDT) Hepatitis B Surface Ag Negative Negative LAB CHEMISTRY METHOD 08/23/2024 12:18 PM EDT [facility] Hepatitis A Antibody IgM Negative Negative LAB CHEMISTRY METHOD 08/23/2024 12:18 PM EDT [facility] Hep B Core IgM Negative Negative LAB CHEMISTRY METHOD 08/23/2024 12:18 PM EDT [facility] Hepatitis C Antibody Negative Negative LAB CHEMISTRY METHOD 08/23/2024 12:18 PM EDT [facility] Blood Venous blood specimen / Unknown Venipuncture / Unknown 08/23/2024 9:33 AM EDT 08/23/2024 10:35 AM EDT Alok Mccormack MD LAB BLOOD ORDERABLES Final Resul t Performing Organization Address City/[facility]/ZIP Co de Phone Number [facility] [address] [place], [place] [address] [phone] from Last 3 Months or Most Recently Relevant to Health Maintenance Insurance [employer] [place]ICA[place] - [place] Care Teams Product Craftsman Relationship Specialty Start Date End Date Gregg Todd MD [address] [address] PCP - General Internal Medicine 04/17/21
--- OUTSIDE RECORDS SUMMARY | 2024-12-26 09:50 | XMS_ITS | Clinical Summary ---
Author Organization [facility] Address [address] [place] [address] Care Team Providers Care College Director Name Role Phone Gregg Todd MD Primary [...] age to complete this topic Care Teams College Director Relationship Specialty Start Date End Date Gregg Todd MD PCP - General Internal Medicine 06/29/23
== END 2024-12-26 10:02 | disposition home or self-care (01) ==
LOC: HO.PMC 09:25
PROVIDERS: PCP Internal Medicine; Visit Provider Internal Medicine
DX: M96.1 Postlaminectomy syndrome, not elsewhere classified (principal); Z79.891 Long term (current) use of opiate analgesic
CPT/HCPCS: 99214

== ENCOUNTER → 2024-12-26 09:24 | Outpatient (BNVA) | payer MEDICARE, MEDICAID, SELFPAY | PROVIDERS: PCP Internal Medicine; Visit Provider Internal Medicine | DX: M96.1 Postlaminectomy syndrome, not elsewhere classified (principal); Z79.891 Long term (current) use of opiate analgesic | CPT/HCPCS: 99212 ==

== ENCOUNTER → 2025-01-03 14:00 | Outpatient (BNV) | payer MEDICARE, MEDICAID, SELFPAY | PROVIDERS: Admitting Provider Neurological Surgery; PCP Internal Medicine; Visit Provider Internal Medicine Cardiovascular Disease | DX: R00.1 Bradycardia, unspecified (principal) | CPT/HCPCS: 93010 ==

== ENCOUNTER 2025-01-17 05:59 | Outpatient (BNV) | payer MEDICARE, MEDICAID, SELFPAY | END 2025-01-18 08:32 | PROVIDERS: Admitting Provider Neurological Surgery; PCP Internal Medicine; Visit Provider Radiology Diagnostic Radiology | DX: M51.26 Other intervertebral disc displacement, lumbar region (principal) | CPT/HCPCS: 72131 ==

== ENCOUNTER 2025-01-17 05:59 | Inpatient (IN) | payer MEDICARE, MEDICAID, SELFPAY ==
--- NOTE | 2025-01-03 13:11 | HO.ANESPROP2 ---
Documented by User: Kaitlin Davila NP 01/11/25 09:47 HPI - Anesthesia Eval Consult details Narrative: 59 yr old male for L2-3, L3-4, L4-5, L5-S1 Oblique Lumbar Interbody Fusion No CP; does get out of breath at times, physically active with yard work. H/O colonoscopy 11/2024 Chronic dyspnea with/without exertion: last cardiology visit 2022, saw pulmonary 06/2024 who stated dyspnea likely related to deconditioning, chronic bronchitis vs asthma. Chest CT 06/2024 showed RLL 3 mm nodule, no new suspicious lung nodule, mass, effusion or adenopathy. 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, mupirocin ointment HIV: follows with ID On Gabapentin for pain PMFSH Active Problems Active Problems: All Active Problems Scoliosis of lumbar region due to degenerative disease of spine in adult (Acute) Degenerative disc disease (DDD) of lumbar region with discogenic back pain and leg pain (Acute) Lumbar radiculopathy (Acute) Osteoarthritis, knee (Acute) Nephrolithiasis (Acute) Sacroiliac joint dysfunction (Acute) Right shoulder pain (Acute) Polyarthralgia (Acute) Bilateral hip pain (Acute) Cluneal neuropathy (Acute) Cervical spondylosis (Acute) Lumbar radiculitis (Acute) 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 (Acute) Cervical radiculopathy (Acute) Rotator cuff tendinitis (Acute) Piriformis syndrome of left side (Acute) Lumbar spondylosis (Acute) Stenosis, spinal, lumbar (Acute) Preprocedural examination (Acute) Cervicalgia (Acute) Myofascial pain (Acute) Paresthesia of hand, bilateral (Acute) Sacroiliac joint pain (Acute) Spondylosis of lumbosacral spine with radiculopathy (Acute) Failed back syndrome (Acute) Past Medical History Medical History Pulmonary nodules HIV (human immunodeficiency virus infection) Arthritis Hiatal hernia BARDALES (dyspnea on exertion) Asthma History of MRSA infection History of blood transfusion GERD (gastroesophageal reflux disease) BPH (benign prostatic hyperplasia) [place] (hard of hearing) Numbness Dizziness Seasonal allergies HLD (hyperlipidemia) Chronic nasal congestion Family History Family history of problems with anesthesia: No Surgical History Surgical History Hx of basal cell carcinoma excision Hx of colonoscopy (11/2024) Hx of blepharoplasty (2018) Hx of spinal surgery (2021) History of Problems with Anesthesia: Yes (? difficult intubation procedure 1994) Social History Social History (Updated 01/03/25 @ 13:38 by Susanne Patterson RN) Household Members: Spouse Housing: House Are you a primary healthcare customer service to a significant other at home: No Do you presently have visiting nurse or other home services: No Comment: vivid dreams and falls out of bed Patient Tobacco Use Status: Never used Tobacco Use of substances other than those prescribed or required for medical reasons: No Have you been hit, kicked, punched, or otherwise hurt by someone within the past year? If so, by whom?: No Do you feel safe in your current relationship?: Yes Is there a partner from a previous relationship who is making you feel unsafe now?: No Are you made to feel afraid or neglected: No Are you DNR?: No Advance Directives: No Advance Directives Information Provided: Yes Advance Directives on File: No Do you have a plan to hurt others: No Plan Recently lost weight without trying: No Eating poorly because of decreased appetite: No Nutrition Risks: No Nutritional Risk Poor oral hygiene: No Meds Allergies Allergy/AdvReac Type Severity Reaction Status Date / Time No Known Allergies Allergy Verified 01/17/25 06:11 Home Medications ?Medication ?Instructions ?Recorded ?Confirmed ?Last Taken ?Type bictegravir 50 mg-emtricitabine 1 tab PO DAILY 06/04/21 01/17/25 01/17/25 04:15 History 200 mg-tenofovir alafenam 25 mg tablet (Biktarvy) omeprazole 40 mg capsule,delayed 40 mg PO DAILY 06/04/21 01/17/25 01/17/25 04:15 History release simvastatin 20 mg tablet 20 mg PO BEDTIME 06/04/21 01/03/25 Unknown History meclizine 25 mg tablet 25 mg PO TID PRN Dizziness 06/25/21 01/17/25 Unknown History doxycycline hyclate 100 mg capsule 100 mg PO DAILY PRN MRSA OUTBREAKS 06/19/22 01/03/25 Unknown History fluticasone propionate 50 1 spray intranasal BID 06/19/22 01/03/25 Unknown History mcg/actuation nasal spray,suspension mupirocin 2 % topical ointment 1 appl topical DAILY PRN MRSA 06/19/22 01/17/25 Unknown History OUTBREAKS albuterol sulfate 90 mcg/actuation 2 puff inhalation Q6H PRN 07/16/23 01/03/25 Unknown History aerosol inhaler Shortness Of Breath Or Wheezing beclomethasone dipropionate 80 2 inh inhalation BID 01/03/25 01/03/25 Unknown History mcg/actuation HFA breath activated aerosol (Qvar RediHaler) hydroxyzine HCl 25 mg tablet 25 mg PO DAILY anxiety 01/03/25 01/03/25 Unknown History tamsulosin 0.4 mg capsule 0.4 mg PO DAILY 01/03/25 01/03/25 Unknown History tizanidine 4 mg capsule 8 mg PO BEDTIME PRN Pain 01/03/25 01/03/25 Unknown History Exam Narrative Narrative: ECHO 2022 PVC Normal LV size, wall thickness, & systolic function. Normal regional wall motion EF 55-60% Normal LV diastolic dysfunction Mildly dilated left atrium. No significant valvular disease EKG 01/03/25 Vent. Rate : 59 BPM Atrial Rate : 59 BPM P-R Int : 150 ms QRS Dur : 88 ms QT Int : 404 ms P-R-T Axes : 39 5 36 degrees QTcB Int : 399 ms Sinus bradycardia Otherwise normal ECG No previous ECGs available Nuclear stress with exercise 08/29/22 -Positive exercise nuclear stress test -No chest pain during exercise protocol -Stress EK: evidence of [address] segment depression in leads III, aVF during early recovery suggestive of ischemia. -Small in size and mild intensity reversible perfusion defect in basal to mid anterior wall; when attenuation correction was applied there is a persistence of this. -Gated images revealed normal LV wall motion and thickening, normal LVEF 68% -Mild coronary artery calcification in LAD CT heart/Coronary 09/2022 No significant flow restriction was seen in any of the vessels No hemodynamically significant coronary artery disease Mild stenoses in mid LAD & proximal subsegment of distal LAD due to calficied plaque 25-49% Mild proximal RCA stenosis due to mixed plaque, approx 25% Nearly normal circumflex Normal left main coronary artery Airway Mallampati Class: I TM Dist: >3cm Neck ROM: Full Loose/Missing/Broken Teeth: Yes and Upper (M bilateral) Assessment and Plan Final Anesthetic Review Family History of Problems with Anesthesia: No History of Problems with Anesthesia: Yes (? difficult intubation procedure 1994) Documented by User: Josselyn Castillo NP 01/16/25 08:52 PMFSH Past Medical History Medical History Pulmonary nodules HIV (human immunodeficiency virus infection) Arthritis Hiatal hernia BARDALES (dyspnea on exertion) Asthma History of MRSA infection History of blood transfusion GERD (gastroesophageal reflux disease) BPH (benign prostatic hyperplasia) [place] (hard of hearing) Numbness Dizziness Seasonal allergies HLD (hyperlipidemia) Chronic nasal congestion Surgical History Surgical History Hx of basal cell carcinoma excision Hx of colonoscopy (11/2024) Hx of blepharoplasty (2018) Hx of spinal surgery (2021) Social History Social History (Updated 01/03/25 @ 13:38 by Susanne Patterson RN) Household Members: Spouse Housing: House Are you a primary healthcare customer service to a significant other at home: No Do you presently have visiting nurse or other home services: No Comment: vivid dreams and falls out of bed Patient Tobacco Use Status: Never used Tobacco Use of substances other than those prescribed or required for medical reasons: No Have you been hit, kicked, punched, or otherwise hurt by someone within the past year? If so, by whom?: No Do you feel safe in your current relationship?: Yes Is there a partner from a previous relationship who is making you feel unsafe now?: No Are you made to feel afraid or neglected: No Are you DNR?: No Advance Directives: No Advance Directives Information Provided: Yes Advance Directives on File: No Do you have a plan to hurt others: No Plan Recently lost weight without trying: No Eating poorly because of decreased appetite: No Nutrition Risks: No Nutritional Risk Poor oral hygiene: No Meds Allergies Allergy/AdvReac Type Severity Reaction Status Date / Time No Known Allergies Allergy Verified 01/17/25 06:11 Home Medications ?Medication ?Instructions ?Recorded ?Confirmed ?Last Taken ?Type bictegravir 50 mg-emtricitabine 1 tab PO DAILY 06/04/21 01/17/25 01/17/25 04:15 History 200 mg-tenofovir alafenam 25 mg tablet (Biktarvy) omeprazole 40 mg capsule,delayed 40 mg PO DAILY 06/04/21 01/17/25 01/17/25 04:15 History release simvastatin 20 mg tablet 20 mg PO BEDTIME 06/04/21 01/03/25 Unknown History meclizine 25 mg tablet 25 mg PO TID PRN Dizziness 06/25/21 01/17/25 Unknown History doxycycline hyclate 100 mg capsule 100 mg PO DAILY PRN MRSA OUTBREAKS 06/19/22 01/03/25 Unknown History fluticasone propionate 50 1 spray intranasal BID 06/19/22 01/03/25 Unknown History mcg/actuation nasal spray,suspension mupirocin 2 % topical ointment 1 appl topical DAILY PRN MRSA 06/19/22 01/17/25 Unknown History OUTBREAKS albuterol sulfate 90 mcg/actuation 2 puff inhalation Q6H PRN 07/16/23 01/03/25 Unknown History aerosol inhaler Shortness Of Breath Or Wheezing beclomethasone dipropionate 80 2 inh inhalation BID 01/03/25 01/03/25 Unknown History mcg/actuation HFA breath activated aerosol (Qvar RediHaler) hydroxyzine HCl 25 mg tablet 25 mg PO DAILY anxiety 01/03/25 01/03/25 Unknown History tamsulosin 0.4 mg capsule 0.4 mg PO DAILY 01/03/25 01/03/25 Unknown History tizanidine 4 mg capsule 8 mg PO BEDTIME PRN Pain 01/03/25 01/03/25 Unknown History Exam Height,Weight and Vital Signs: Vital Signs Pulse Rate 73 01/03/25 13:30 Respiratory Rate 16 01/03/25 13:30 Blood Pressure 119/74 01/03/25 13:30 Pulse Oximetry 97 01/03/25 13:30 Oxygen Delivery Method Room Air 01/03/25 13:30 Pertinent Lab Results Pertinent Lab Results: CBC and CMP 09/2024 from outside facility WNL Documented by User: Edmond Mckeon MD 01/17/25 17:04 [facility] Past Medical History Medical History Pulmonary nodules HIV (human immunodeficiency virus infection) Arthritis Hiatal hernia BARDALES (dyspnea on exertion) Asthma History of MRSA infection History of blood transfusion GERD (gastroesophageal reflux disease) BPH (benign prostatic hyperplasia) [place] (hard of hearing) Numbness Dizziness Seasonal allergies HLD (hyperlipidemia) Chronic nasal congestion Surgical History Surgical History Hx of basal cell carcinoma excision Hx of colonoscopy (11/2024) Hx of blepharoplasty (2018) Hx of spinal surgery (2021) Social History Social History (Updated 01/03/25 @ 13:38 by Susanne Patterson RN) Household Members: Spouse Housing: House Are you a primary healthcare customer service to a significant other at home: No Do you presently have visiting nurse or other home services: No Comment: vivid dreams and falls out of bed Patient Tobacco Use Status: Never used Tobacco Use of substances other than those prescribed or required for medical reasons: No Have you been hit, kicked, punched, or otherwise hurt by someone within the past year? If so, by whom?: No Do you feel safe in your current relationship?: Yes Is there a partner from a previous relationship who is making you feel unsafe now?: No Are you made to feel afraid or neglected: No Are you DNR?: No Advance Directives: No Advance Directives Information Provided: Yes Advance Directives on File: No Do you have a plan to hurt others: No Plan Recently lost weight without trying: No Eating poorly because of decreased appetite: No Nutrition Risks: No Nutritional Risk Poor oral hygiene: No Meds Allergies Allergy/AdvReac Type Severity Reaction Status Date / Time No Known Allergies Allergy Verified 01/17/25 06:11 Home Medications ?Medication ?Instructions ?Recorded ?Confirmed ?Last Taken ?Type bictegravir 50 mg-emtricitabine 1 tab PO DAILY 06/04/21 01/17/25 01/17/25 04:15 History 200 mg-tenofovir alafenam 25 mg tablet (Biktarvy) omeprazole 40 mg capsule,delayed 40 mg PO DAILY 06/04/21 01/17/25 01/17/25 04:15 History release simvastatin 20 mg tablet 20 mg PO BEDTIME 06/04/21 01/03/25 Unknown History meclizine 25 mg tablet 25 mg PO TID PRN Dizziness 06/25/21 01/17/25 Unknown History doxycycline hyclate 100 mg capsule 100 mg PO DAILY PRN MRSA OUTBREAKS 06/19/22 01/03/25 Unknown History fluticasone propionate 50 1 spray intranasal BID 06/19/22 01/03/25 Unknown History mcg/actuation nasal spray,suspension mupirocin 2 % topical ointment 1 appl topical DAILY PRN MRSA 06/19/22 01/17/25 Unknown History OUTBREAKS albuterol sulfate 90 mcg/actuation 2 puff inhalation Q6H PRN 07/16/23 01/03/25 Unknown History aerosol inhaler Shortness Of Breath Or Wheezing beclomethasone dipropionate 80 2 inh inhalation BID 01/03/25 01/03/25 Unknown History mcg/actuation HFA breath activated aerosol (Qvar RediHaler) hydroxyzine HCl 25 mg tablet 25 mg PO DAILY anxiety 01/03/25 01/03/25 Unknown History tamsulosin 0.4 mg capsule 0.4 mg PO DAILY 01/03/25 01/03/25 Unknown History tizanidine 4 mg capsule 8 mg PO BEDTIME PRN Pain 01/03/25 01/03/25 Unknown History Assessment and Plan Assessment Anesthesia Assessment: Anesthesia Plan Discussed and Chart Reviewed Final Anesthetic Review ASA Class: III Final Preanesthetic Review: No Changes in Pt Med Stat, Meds/Allgs Chart Reviewed, Consent Obtained/Reviewed and Anes Risks/Benef Reviewed Patient Risk: Intermediate Procedure Risk: Low Anesthetic Plan Anesthetic Plan: GA Disposition: Standard PACU
[2025-01-03 13:26] VITALS: BMI 27.5
[2025-01-03 13:30] VITALS: BP 119/74; PULSE 73; RESP 16; O2SAT 97
--- NOTE | 2025-01-03 14:00 | ECG_ITS ---
Test Reason : PREOP Blood Pressure : */* mmHG Vent. Rate : 59 BPM Atrial Rate : 59 BPM P-R Int : 150 ms QRS Dur : 88 ms QT Int : 404 ms P-R-T Axes : 39 5 36 degrees QTcB Int : 399 ms Sinus bradycardia Otherwise normal ECG No previous ECGs available Referred By: Kaitlin Davila Electronically Signed By: Carlos Sommer
[2025-01-17] VITALS (18 sets, daily range): BP systolic 98–137; BP diastolic 41–74; PULSE 60–90; RESP 14–18; TEMP 35.9–36.9; O2SAT 92–99; BMI 27.6
--- NOTE | ~2025-01-17 | FL_ITS ---
EXAMINATION: FL GUIDANCE ONLY HISTORY: L2-S1 OLIF COMPARISON: Correlation is made with the films of the lumbar spine dated 11/29/2024. TECHNIQUE: Fluoroscopy time: 3 minutes, 21.7 seconds. Cumulative Dose: 133.99 mGy. DAP: 53.183 mGym2 Images: 10. FINDINGS: Fluoroscopic spot films of the lumbar spine demonstrate posterior fusion of L2-S1 with pedicle screws, spinal stabilization rods, and intervertebral spacers. FL/FL guidance in OR IMPRESSION: Fluoroscopy during procedure. Please see procedure report for additional information. Electronically signed by: Aden Rivero MD 01/23/2025 10:17 AM EDT
--- NOTE | ~2025-01-17 | CT_ITS ---
EXAMINATION: CT LUMBAR SPINE WITHOUT CONTRAST CLINICAL INFORMATION: Status post L2-S1 lumbar fusion. COMPARISON: Lumbar spine x-ray 2024. TECHNIQUE: Axial 2 mm thin and reformatted sagittal and coronal 2 within images of lumbar spine were obtained L1-S1 vertebra. This CT examination was performed using dose optimization techniques as appropriate, variously including the following: *Automated exposure control *Adjustment of mA and/or kV according to patient size (this includes techniques or standardized protocols for targeted exams where dose is matched to indication/reason for exam; i.e. extremities or head) *Use of iterative reconstruction technique DLP: 760 mGy/cm. FINDINGS: There is a normal lumbar lordosis. The vertebral heights and alignment is normal. There are disc prostheses at L5-S1, L4-5, L3-4 and L2-3 disc levels for fusion. In addition there are bilateral pedicle screws at L2-S1 vertebra with interconnecting rods for posterior stability. The hardware is intact with no hardware loosening or malfunction seen. At L1-2 disc level there is mild diffuse bulge with mild circumferential canal stenosis. No disc herniation seen. The neural foramina are widely patent. At L2-3 through L5-S1 disc there are disc prosthesis for fusion which are stable. No disc herniation or spinal canal stenosis seen. There is a left L4 laminotomy suspected. Bilateral neural foramina appear patent except at the L3 4-5 disc level. There is mild bilateral neural foraminal narrowing with bilateral mild facet joint hypertrophy. No lytic or sclerotic process seen. Spondylosis seen throughout the lumbar spine. There are droplets of gas visualized in left lower retroperitoneum and left pelvis likely from recent intervention. The paravertebral soft tissues are normal. CT/CT lumbar spine wo IV con IMPRESSION: Disc prosthesis from L2-3 the L5-S1 disc level with posterior hardware for stabilization. The hardware is intact. Recent postsurgical changes with scattered droplets of air seen in the left retroperitoneum and pelvis. Mild diffuse bulge with mild circumferential canal stenosis at L1-2 disc level. Electronically signed by: Yon Caldwell MD 01/18/2025 10:21 AM EDT
[2025-01-17] MEDS: Lactated Ringers 1,000 ML 100 ML IVCONT (06:26)
--- NOTE | 2025-01-17 06:56 | MHC.SHP ---
Pre-Procedural Eval Section A - 24 Hr Update-Section A only Date of Service: 01/17/25 Section B - Complete if H&P > 30 days Chief Complaint: L2-S1 Oblique lumber interbody fusion Allergies: Allergies Allergy/AdvReac Type Severity Reaction Status Date / Time No Known Allergies Allergy Verified 01/17/25 06:11 Review of Systems Sugical H&P ROS: Negative: Constitution, Cardiovascular, Respiratory, Neurological, Psychiatric, Hem-Onc, Allergic/Immunologic, Gastrointestinal, Genitourinary, Musculoskeletal, Integumentary, Endocrine and Eyes/Ears/Nose/Throat Exam Surgical H&P Exam: Not Evaluated: HEENT, Not Evaluated: Heart, Not Evaluated: Lungs, Not Evaluated: Extremities, Not Evaluated: Abdomen, Not Evaluated: Skin and Not Evaluated: Neurological Exam Comment: The patient is awake, alert, no acute distress. Proposed surgical incision site is clean, dry, no signs of recent trauma. Plan Diagnosis/Plan: Unchanged I have reviewed the history and physical and performed a pertinent physical examination on my patient. No changes have occurred unless specified. Plan remains the same, L2-s1 OLIF. Time Spent With Patient Time: Total time managing care of this patient today _7___ minutes.
--- NOTE | 2025-01-17 07:43 | PHA.MEDREC ---
Pharmacy Consult ? Medication Reconciliation Pharmacy has reviewed the medication reconciliation completed by nursing. Pt takes doxycycline and mupirocin prn for MRSA outbreaks.
--- NOTE | 2025-01-17 09:32 | W.PM.OPN ---
Operative Note Operative Note Date of Service: 01/17/25 Narrative: The patient was brought to the operating room, positioned on the table supine and general anesthesia was administered. Patient was then turned to the right decubitus position with left side up. C-arm image was obtained in AP and lateral planes and anterior border of the spine and disk space projections were marked on the skin.The abdomen was clipped and then prepped and draped in the usual sterile fashion. After timeout was done, incision was made from 2 cm medial and inferior to the Anterior Superior iliac spine in oblique direction 6 cm long. It was brought through subcutaneous tissue and the external oblique aponeurosis in line with the skin incision and transverse and internal abdominal muscles were split along the fibers. The pre-peritoneal plane was entered, peritoneum was bluntly dissected off and iliac artery pulse was felt. Self-retaining retractor with two deep blades was inserted and peritoneum protected with moist gauzes. Left internal iliac vein was identified and dissection was carried along the medial surface of the iliac vein up to the bifurcation. The middle sacral vessels were transected and L5-S1 disc space was bluntly and sharply dissected using bipolar cautery staying directly on the surface of the spine. The midline of the disk space was marked with C-arm image guide. Dr. Valdovinos then proceeded with the diskectomy and fusion, which will be dictated separately by him.
--- NOTE | 2025-01-17 13:25 | W.PM.OPN ---
Operative Note Operative Note Date of Service: 01/17/25 Narrative: Preop Diagnosis: 1.) Multilevel lumbar Degenerative disc disease/lumbar scoliosis 2.) Low back pain and bilateral leg pain Procedure: 1) L2-3, L3-4, L4-5 and L5-S1 discectomy, arthrodesis and implantation cage through an anterolateral, retroperitoneal approach 2) L2-S1 posterior instrumented fusion 3) allograft 4) Injection of 10 cc of Exparel at the transverse process for a muscular erector spinae block and additional Exparel in paravertebral tissue for postop management Consent Informed Consent was obtained for this operation. I have explained the nature, purpose and benefits of the operation. I have discussed the risks and benefit of the operation including possible complications or adverse events with patient/family. Alternative(s) were discussed with the patient with their relative benefits and risks as well as the consequences of not accepting the operation were included in obtaining consent. Surgeon: EDI HARVEY MD, PHD Co-surgeon: Arya Travis MD Procedure Assisted By: julio Comer Description of Procedure This patient is suffering from intractable low back pain and bilateral leg pain. He had multiple previous lumbar decompressions done in another institution. Imaging shows multilevel degenerative disc disease L2-S1 and a lumbar degenerative scoliosis. The patient was offered an oblique lumbar interbody fusion L2-S1. The procedure and complications were explained. The patient was consented. The patient was brought to the operating room and endotracheally intubated. The patient was turned in a lateral position with the left side up. Prep and drape was done followed by timeout. We started with the L5-S1 level and for this part was needed to expose the L5-S1 disc space for me with retraction of the iliac arteries. He will dictate a separate note for the L5-S1 part. When the L5-S1 disc space was exposed I performed a thorough diskectomy. The endplates were prepared. Several trials were inserted and and finally a 38 x 28 x 13 mm Astura cage with 15 degrees lordosis filled with allograft was inserted into the L5-S1 disc space. A nail was placed in the S1 vertebral body to secure the implant. An x-ray showed a satisfactory position of the cage. The L5-S1 retractor was removed and replaced by a retractor used for the L2 3, L3-4 and L4-5 levels. Attention was turned to the L4-5 level. The muscle fascia was opened after which the 3 muscle layer was split to enter the retroperitoneal space. Dilators were docked in the anterior one third of the L4-5 disc space followed by a retractor. The retractor was opened. The L4-5 disc space was exposed. An annulotomy was done after which an elevator Puentes was used to release the disc material from its endplates and to perforate the contralateral side. A partial discectomy was done. An 8 and 10 mm height trial implant was inserted. The discectomy was completed. The endplates were prepared. An 10 x 55 mm with 6 degree lordosis 4 web cage filled with allograft was inserted into the disc space under fluoroscopic guidance. A separate incision was made in the left lower abdominal quadrant for the L2-3 and L3-4 levels. The muscle fascia was opened and the 3 muscle layer was split bluntly to enter the retroperitoneal space. Sequential dilators were docked on the anterior 1/3 of the L3-4 disc space followed by a retractor. An annulotomy was done. Elevator Puentes was used to perforate the contralateral annulus. Partial diskectomy was done. Trial implants were inserted. The diskectomy was completed and the endplates were prepared after which a 10 mm x 50 mm and 0 degree lordosis 4 web cage filled with allograft was inserted into the disc space. Finally the L2-3 level was addressed in his similar fashion as described above. A 12 mm x 50 mm and 6 degree lordosis 4 web cage filled with allograft was inserted into this disc space. This resulted in correction of the scoliosis in the coronal plane, oriental orthodox of the lumbar lordosis and an indirect decompression of the nervous structures. The retractor was removed. Hemostasis was done. The incisions were closed in 2 layers by the physician field technical assistant. Steri-Strips used to approximate incisions. An OpSite with Tegaderm was used to cover the incisions. This marked first part of the procedure. The patient was turned prone on the Vishnu spine table. 2C arms were installed for fluoroscopy. Prep and drape was done followed by a second timeout. Injection of 10 cc of Exparel at the bilateral L3 transverse processi for a muscular erector spinae block. Paramedian incisions were made lateral from the L2-S1 pedicles. The muscle fascia was opened after which the muscle layer was split bluntly to expose the posterolateral gutter. The following steps were taken. A pediguard tap was used to create a transpedicular trajectory into the vertebral body. A K wire was placed. A specially designed instrument was advanced over the K wire to decorticate the posterolateral gutter in preparation for the posterolateral fusion. A pedicle screw was advanced over the K wire and the K wire was removed. The steps were done for the bilateral L2, L3, L4, L5 and S1 pedicles. A total of 10 screws were placed with a diameter of 6.5 x 55 mm in the bilateral L2 and L3 pedicles; 6.5 x 50 mm in the bilateral L4 and L5 pedicles and a 6.5 x 45 mm in the left S1 pedicle and a 7.5 x 50 mm screw in the right S1 pedicle. Pedicle screws were connected with under 130 mm tim on the left side and 140 mm tim on the right side and locked down with locking caps. The extension towers were removed. The posterolateral gutter was filled with allograft to complete the posterolateral L2-S1 fusion Hemostasis was done and the incision was closed in 2 layers. Steri-Strips were used to approximate the incision. An OpSite with tegaderm was used to cover the incision. All sponge and needle counts were correct. Patient was extubated and transferred in stable is to recovery room. Anesthesia: General Estimated Blood Loss (ml): 130 cc Duration of Surgery: 5 hours Complications: None Postoperative Plan: Admit to inpatient for clinical observation
[2025-01-17] MEDS: oxyCODONE HCl Immed Release 5 MG TABLET PO (14:09)
[2025-01-17] MEDS: oxyCODONE HCl Immed Release 5 MG TABLET 10 MG PO (22:13)
[2025-01-18 03:52] VITALS: BP 124/66; PULSE 79; RESP 18; TEMP 37.1; O2SAT 97
[2025-01-18] MEDS: oxyCODONE HCl Immed Release 5 MG TABLET 10 MG PO ×4 (06:37→21:10)
[2025-01-18 07:01] VITALS: BP 124/64; PULSE 85; RESP 16; TEMP 36; O2SAT 97
[2025-01-18] MEDS: Bictegrav/Emtricit/Tenofov Ala TABLET 1 TAB PO (08:26)
--- NOTE | 2025-01-18 08:39 | HO.POSTANES ---
Post Anesthesia Evaluation Post Anesthesia Evaluation Date of Service: 01/18/25 Vital Signs: Vital Signs Temp Pulse Resp BP Pulse Ox O2 Del Method 01/18/25 07:01 96.8 F 85 16 124/64 97 Room Air 01/18/25 03:52 98.7 F 79 18 124/66 97 Room Air 01/17/25 23:03 98.5 F 85 18 116/62 98 Room Air Anesthesia: General Mental Status: Awake Pain Control: Satisfactory Nausea/Vomiting: None Hydration: Adequate Anesthesia-Related Issues: No Anes. Related Issues
--- NOTE | 2025-01-18 12:10 | MHC.CM.PN ---
pt lives with girlfriend has a ride home will need a vna had no previous services
[2025-01-18 14:54] VITALS: BP 124/57; PULSE 86; RESP 18; TEMP 36.9; O2SAT 98
[2025-01-18 19:15] VITALS: BP 115/60; PULSE 85; RESP 17; TEMP 37; O2SAT 95
[2025-01-19 03:14] VITALS: BP 116/63; PULSE 76; RESP 18; TEMP 36.6; O2SAT 94
[2025-01-19] MEDS: oxyCODONE HCl Immed Release 5 MG TABLET 10 MG PO (06:38)
[2025-01-19 06:49] VITALS: BP 113/73; PULSE 81; RESP 16; TEMP 36.6; O2SAT 94
--- NOTE | 2025-01-19 07:33 | PM.DS ---
DS: Providers Provider Date of Service: 01/19/25 Date of admission: 01/17/25 05:59 Date of discharge: 01/19/25 Primary care physician: Gregg Todd MD DS: Summary Time Attestation Discharge Coordination Time (in mins): 12 Quality: Safe Use of Opioids Does Pt have an Active Cancer Diagnosis on the Problem List?: No Quality: Stroke Does the patient have a stroke diagnosis?: No Physical Exam Vital Signs: Vital Signs: Last Vital Signs Temp 98 F 01/19/25 06:49 Pulse 81 01/19/25 06:49 Resp 16 01/19/25 06:49 BP 113/73 01/19/25 06:49 Pulse Ox 94 01/19/25 06:49 O2 Del Method Room Air 01/19/25 06:49 BMI result Body Mass Index 27.6 Discharge Plan Discharge Anticipated Discharge Date/Time: 01/19/25 07:33 Patient Disposition: Home, Self-Care Discharge Diagnosis: s/p L2-S1 OLIF Referrals: Gregg Todd MD [Primary Care Provider, Internal Medicine] - 1 Week Discharge Medications: New oxycodone 5 mg tablet See Rx Instructions .ROUTE .COMPLEX PRN (Reason: pain) Qty: 30 0RF Rx Instructions: Take 1-2 tablets by mouth every 4 hours; Partial Fill upon patient request. sulfamethoxazole-trimethoprim [Bactrim DS] 800-160 mg tablet 1 tab PO BID 5 Days Qty: 10 0RF Continued lidocaine 5 % adhesive patch,medicated 1 patch topical DAILY 30 Days Qty: 30 3RF gabapentin 600 mg tablet 600 mg PO QID Qty: 120 3RF tamsulosin 0.4 mg capsule 0.4 mg PO DAILY hydroxyzine HCl 25 mg tablet 25 mg PO DAILY tizanidine 4 mg Capsule 8 mg PO BEDTIME PRN (Reason: Pain) Qvar RediHaler 80 mcg/actuation HFA aerosol breath activated 2 inh INHALATION BID simvastatin 20 mg tablet 20 mg PO BEDTIME Biktarvy 50-200-25 mg tablet 1 tab PO DAILY omeprazole 40 mg capsule,delayed release(DR/EC) 40 mg PO DAILY Narcan 4 mg/actuation spray,non-aerosol 4 mg intranasal Q2M PRN (Reason: opioid overdose) Qty: 2 0RF Rx Instructions: spray 1 dose into ONE nostril; alternate nostrils w each dose until help arrives meclizine 25 mg tablet 25 mg PO TID PRN (Reason: Dizziness) doxycycline hyclate 100 mg capsule 100 mg PO DAILY PRN (Reason: MRSA OUTBREAKS) mupirocin 2 % ointment 1 appl topical DAILY PRN (Reason: MRSA OUTBREAKS) fluticasone propionate 50 mcg/actuation spray,suspension 1 spray intranasal BID albuterol sulfate 90 mcg/actuation HFA aerosol inhaler 2 puff inhalation Q6H PRN (Reason: Shortness Of Breath Or Wheezing) celecoxib 100 mg capsule 100 mg PO BID PRN (Reason: pain) Qty: 60 5RF Held hydrocodone-acetaminophen 5-325 mg tablet 1 tab PO Q4-6H PRN (Reason: pain) Qty: 180 0RF Hold Instructions: Resume on 02/19/25. Hold until oxycodone Rx is complete Rx Instructions: Partial Fill upon patient request. Discharge Orders: Discharge Order (Routine); Ordered 01/19/25 Ordered By: Duane Castillo Diet: Advance to usual diet Activity on Discharge: As tolerated Stand Alone Forms: Patient Portal Discharge page Print Language: Japanese Activity Restrictions/Additional Instructions: After your spinal surgery we ask you to observe the following restrictions/guidelines: Activity: It is normal to feel some discomfort as you increase your activity, but that will improve with time. We ask you avoid heavy lifting or acitivities that cause pain. As a general rule, 8lbs is a safe limit for lifting right after surgery. Walk as much as you feel comfortable but not to exhaustion. You will feel extra tired the first few days after surgery. Stay well hydrated. It is OK to walk up and down stairs You may return to driving when you are off narcotics (such as vicodin, oxycodone, dilaudid, etc), and you are back to normal functional capacity. If you have any concerns please check with office before driving. Return to work is specific to each patient and each surgery, so please speak with your doctor/PA at first follow up. Please bring paperwork such as FMLA at that time if you need it filled out. Medications: PLEASE TAKE THE OXYCODONE PRESCRIBED FOR PAIN CONTROL POSTOPERATIVELY. HOLD YOUR VICODIN PRESCRIPTION UNTIL THE OXYCODONE IS COMPLETE. YOU ARE BEING PRESCRIBED A 5 DAY COURSE OF BACTRIM (ANTIBIOTIC) PLEASE TAKE THE ENTIRE COURSE FOR INFECTION PROPHYLAXIS YOU HAVE A HISTORY OF MRSA. We recommend you take 1,000mg Tylenol every 8 hours for the first few weeks after surgery, if you do not have any liver issues and can tolerate this medication. Do not exceed 4,000mg daily. We will give you a short supply of narcotics after surgery (usually one weeks worth). If you need more please call the office but do not use more than prescribed. You will need to give our office 48 hours notice if you need narcotics refilled and we do not fill narcotics on weekends or evenings. If you are on a narcotic, it is a good idea to take a stool softener such as colace or senna to avoid constipation If you take blood thinner such as aspirin, Plavix, Coumadin, Effient, Eliquis etc for conditions such as Afib, DVT, Pulmonary embolus, coronary disease, stents etc please speak with your surgeon about specific details as to when you can resume these medications. You can resume NSAIDs on post op day 1 (eg: Motrin, Naproxen, etc). Follow up: Please call the office, , after surgery to arrange a 3 week follow up for wound check. Wound Care: You may remove your dressing on the first day after surgery. ?You may ?leave open to air. Please do not remove the steri strips underneath. they will fall off on their own in one week. IT IS NORMAL FOR THE WOUND TO OOZE OR BE BLOODY FOR A FEW DAYS AFTER SURGERY. ?IF THIS HAPPENS JUST PLACE NEW DRESSING OVER IT TO AVOID STAINING CLOTHES. You may shower on post op day # 1 We ask that you do not let the water soak the wound. If it does get wet, just towel dry lightly. Please do not scrub your incision or place any type of chemical/ointment on the wound. No tub baths, pools or jacuzzis for one month. If you have any leaking or redness from your wound, or fevers, please call the office. Care Plan Goals: Return to normal activity as tolerated Health Concerns: None Plan of Treatment: Follow-up in clinic in 2-3 weeks Assessment: POD: 2 Procedure: L2-S1 OLIF Roni is a pleasant 59-year-old male who underwent L2-S1 OLIF with Dr. Valdovinos 2 days ago. Yesterday, we decided to keep him inpatient for continued pain control, and obtained a CT scan to evaluate for instrumentation placement. The CT scan looks great. He reports has been up OOB walking around is otherwise doing well. He feels his symptoms are overall much better than pre-operatively. He was having some left-sided iliopsoas weakness after surgery, which seems to be improving today. He has been voiding well and tolerating his current diet. No Oconnell. Afebrile, vital signs stable. 4/5 strength with left sided iliopsoas testing. Rest of strength is 5/5. Back and anterolateral dressings have some staining without signs of hematoma. No active sanguineous drainage. Area is dry. Plan: Patient meets criteria to be medically discharged home. He was seen at bedside with Dr. Valdovinos. I will send in a course of oxycodone for pain control alongside a prescription for Bactrim for infection prophylaxis as he has a Hx of MRSA. Duane Valdovinos MD,PhD [facility]
--- NOTE | 2025-01-19 07:40 | HO.NEURO.PN ---
Neurosurgery Operative Note Date of Service: 01/19/25 Narrative: POD: 2 Procedure: L2-S1 OLIF Roni is a pleasant 59-year-old male who underwent L2-S1 OLIF with Dr. Valdovinos 2 days ago. Yesterday, we decided to keep him inpatient for continued pain control, and obtained a CT scan to evaluate for instrumentation placement. The CT scan looks great. He reports has been up OOB walking around is otherwise doing well. He feels his symptoms are overall much better than pre-operatively. He was having some left-sided iliopsoas weakness after surgery, which seems to be improving today. He has been voiding well and tolerating his current diet. No Oconnell. Afebrile, vital signs stable. 4/5 strength with left sided iliopsoas testing. Rest of strength is 5/5. Back and anterolateral dressings have some staining without signs of hematoma. No active sanguineous drainage. Area is dry. Plan: Patient meets criteria to be medically discharged home. He was seen at bedside with Dr. Valdovinos. I will send in a course of oxycodone for pain control alongside a prescription for Bactrim for infection prophylaxis as he has a Hx of MRSA. Duane Valdovinos MD,PhD [facility]
[2025-01-19] MEDS: Bictegrav/Emtricit/Tenofov Ala TABLET 1 TAB PO (08:06)
--- NOTE | 2025-01-19 08:52 | MHC.CM.PN ---
PT CLEARED TO DC HOME TODAY WITH NO SERVICES VIA PRIVATE TRANSPORT
[2025-01-19 10:39] VITALS: BP 111/69; PULSE 69
--- NOTE | 2025-01-25 09:16 | PC.NURSE ---
Late entry note: 01/19 10:18 pt reporting pain, medicated pt with 10mg oxi but was unable to scan d/t scanner freezing up. I forgot to re-enter.
== END 2025-01-19 11:00 | disposition home or self-care (01) | DRG 458 ==
LOC: HO.SSSA 06:16 → HO.S3 14:30
PROVIDERS: Admitting Provider Neurological Surgery; PCP Internal Medicine; Visit Provider Neurological Surgery
PROC: 0SG10A0 Fusion of 2 or more Lumbar Vertebral Joints with Interbody Fusion Device, Anterior Approach, Anterior Column, Open Approach (ICD-10-PCS; principal; 2025-01-17 07:30)
DX: M51.362 Other intervertebral disc degeneration, lumbar region with discogenic back pain and lower extremity pain (principal); M41.56 Other secondary scoliosis, lumbar region; Z21 Asymptomatic human immunodeficiency virus [HIV] infection status; Z86.14 Personal history of Methicillin resistant Staphylococcus aureus infection; Z79.51 Long term (current) use of inhaled steroids; Z79.899 Other long term (current) drug therapy
CPT/HCPCS: 72131; 86850; 86900; 86901; 93005; 97162; C1713; C1889; J0131; J0690; J1171; J1885; J2003; J2371; J2405; J2704; J3010; J3374; L8699

== ENCOUNTER → 2025-01-17 05:59 | Outpatient (BNV) | payer MEDICARE, MEDICAID, SELFPAY | PROVIDERS: Admitting Provider Neurological Surgery; PCP Internal Medicine; Visit Provider Surgery | DX: M51.362 Other intervertebral disc degeneration, lumbar region with discogenic back pain and lower extremity pain (principal) | CPT/HCPCS: 20930; 22558; 22585; 22612; 22614; 22842; 22853 ==

== ENCOUNTER 2025-02-07 13:45 | Outpatient (AMB) | payer MEDICARE, MEDICAID, SELFPAY ==
--- NOTE | 2025-02-07 13:52 | A.SPINEOV_ITS ---
Intake Visit Reasons: 1st post op Intake Note: Mr. Willson is here today for his 1st post op. 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 Valdovinos a few weeks ago. Overall, he states that he has done very well since his surgery. He feels his pain has improved, but is still present. He reports continued low back pain, left-sided buttocks pain, and occasional shooting pain down to his left calf. He also experiences a burning sensation near his incisions. He has been managing his pain with the oxycodone prescription that we prescribed, alongside the Vicodin prescription that he was on preoperatively. He states that he is currently out of both medications, and requested a refill for the oxycodone, which is entirely reasonable. We expect him to need pain control probably for the next couple of weeks given the extent of the surgery. He asked several questions regarding the postoperative healing course, all of which I answered to the best of my ability. No new neurological deficits. The patient ambulates well and rises from a seated position without difficulty. He uses no assistive devices to ambulate. His lateral and posterior incision sites are closed and well healing. I would like to follow up with Roni again in 6 weeks with a set of x-rays. He will continue at-home physical therapy for the time being. Duane Valdovinos MD,PhD [facility] Medications: Refilled oxycodone Take 1-2 tablets by mouth every 4 hours; Partial Fill upon patient request. 30 tabs 0RF pain Coding Level of Care Code Global (29826) Diagnoses S/P lumbar fusion Z98.1
--- OUTSIDE RECORDS SUMMARY | 2025-02-07 14:42 | XMS_ITS | Encounter Summary ---
Author Organization [facility] Address [address] [place] [address] Care Team Providers Care Obstetrics Specialist Name Role Phone Gregg Todd MD Primary Care Provider [phone] Encounter Details Date Type Department Care Team (Late st Contact Info) Description 01/03/2025 Telephone Internal Medicine - [place] [address] [facility] [address] [place] [address] Gregg Todd MD [address] [place] [phone] Social History Tobacco Use Types Packs/Day Years [...] Record ed Within the last 3 months, deborah boateng many times did you visit the emergency [...] for your loved ones. For example, children's choir director or elderly care for an older [...] Jennifer Alex RN documented in this encounter Plan of Treatment Upcoming Encounters Date Type Department Care Team (Late st Contact Info) Description 03/30/2025 8:15 AM EDT Office Visit Internal Medicine - [place] [address] [phone] Gregg Todd MD [address] [place] [phone] 05/31/2025 2:15 PM EST Office Visit Pulmonolgy - [place] [address] [phone] Felicia Sparrow MD [address] [place] [phone] documented as of this encounter Visit Diagnoses Not on filedocumented in this encounter Additional Health Concerns Assessment Noted Time PHQ-9 Depression Total Score: 10 025 9:46 PM EDT documented as of this encounter Care Teams Obstetrics Specialist Relationship Specialty Start Date End Date Gregg Todd MD [address] [place] [phone] PCP - General Internal Medicine 04/17/21 documented as of this encounter
--- OUTSIDE RECORDS SUMMARY | 2025-02-07 14:42 | XMS_ITS | Encounter Summary ---
Author Organization [facility], Address [address] [place] [address] Phone Care Team Providers Care Stained Glass Joiner Name Role Phone Gregg Todd MD Primary Care Provider [phone] Encounter Details Date Type Department Care Team (Late st Contact Info) Description 01/16/2025 Orders Only [facility] [address] [place] [phone] Melissa Portillo [address] [place] [phone] Social History Tobacco Use Types Packs/Day Years Used Date Smoking Tobacco: Never Assessed Sex and Gender Information Value Date Recorded Sex Assigned at Not on file Legal Sex Male 8:07 AM EDT Gender Identity Not on file Sexual Orientation Not on file documented as of this encounter Plan of Treatment Not on file documented as of this encounter Visit Diagnoses Not on filedocumented in this encounter Care Teams Stained Glass Joiner Relationship Specialty Start Date End Date Gregg Todd MD [address] [place] [phone] PCP - General Internal Medicine 01/11/25 documented as of this encounter
--- OUTSIDE RECORDS SUMMARY | 2025-02-07 14:42 | XMS_ITS | Clinical Summary ---
Author Organization LL 175 [facility] Address [address] [place] [address] Phone Care Team Providers Care Visual Coordinator Name Role Phone Gregg Todd MD Primary Care Provider [phone] Allergies No known active allergies Medications bictegravir-emt ricitabine-teno fovir alafenamide (Biktarvy) 50-200-25 mg per tablet Take 1 Tab by mouth daily. 020 Active doxycycline (VIBRAMYCIN) 100 mg capsule Take 100 mg by mouth daily. 022 Active gabapentin (NEURONTIN) 600 mg tablet TAKE 2 TABLETS BY MOUTH EVERY MORNING, 2 TABLETS AT LUNCH AND 1 TABLET AT BEDTIME 021 Active HYDROcodone-efrain taminophen (NORCO) 7.5-325 mg per tablet 1 TAB BY MOUTH EVERY 6 HOURS NEEDED FOR SEVERE PAIN 022 Active lidocaine (LIDODERM) 5 % patch 022 Active mupirocin (BACTROBAN) 2 % ointment APPLY SPARINGLY TO AFFECTED AREA(S) 3 TIMES A DAY 011 Active tiZANidine (ZANAFLEX) 4 mg tablet TAKE 2 TABLETS BY MOUTH TWICE A DAY NEEDED FOR MUSCLE SPASMS 024 Active fluticasone furoate (Arnuity Ellipta) 100 mcg/actuation blister with device inhaler Inhale 1 puff by mouth 1 (one) time each day. 1 each 025 2025 Active beclomethasone dipropionate (Qvar RediHaler) 80 mcg/actuation HFA aerosol breath activated inhaler Inhale 2 puffs by mouth 2 (two) times a day. 3 each 3 025 2025 Active albuterol HFA (PROAIR HFA ; PROVENTIL HFA ; VENTOLIN HFA) 90 mcg/actuation inhalerIndicati ons:Chronic bronchitis, unspecified chronic bronchitis type (CMS/HCC V24, CMS/HCC V28) Inhale 2 puffs by mouth every 6 (six) hours if needed for wheezing. 1 each 11 025 2025 Active simvastatin (ZOCOR) 20 mg tablet Take 1 tablet (20 mg total) by mouth at bedtime. 90 tablet 1 025 Active terbinafine (LamISIL) 250 mg tablet TAKE 1 TABLET BY MOUTH EVERY DAY 30 tablet 2 025 Active polyethylene glycol (Golytely) 236-22.74-6.74 -5.86 gram solution Take 4L by mouth once for one dose. May substitue any PEG. Starting at 6PM the night before your procedure drink 1 8oz glasses at your own pace until you complete half of the gallon. Finish 2nd half of the gallon 5 hours before your procedure. 4000 mL 025 Active bisacodyL (DULCOLAX) 5 mg EC tablet Take 2 tablets by mouth right before beginning bowel prep. See instructions provided by the office 2 tablet 025 Active omeprazole (PriLOSEC) [address] capsule TAKE 1 CAPSULE BY MOUTH EVERY DAY 90 capsule 1 025 Active meclizine (ANTIVERT) 25 mg tablet TAKE 1 TABLET BY MOUTH 3 TIMES A DAY IF NEEDED FOR DIZZINESS. 90 tablet 1 025 Active fluticasone propionate (FLONASE) 50 mcg/actuation nasal spray SPRAY 1 SPRAY INTO EACH NOSTRIL TWICE A DAY 48 mL 1 025 Active tamsulosin (FLOMAX) 0.4 mg 24 hr capsule TAKE 1 CAPSULE BY MOUTH 30 MINUTES AFTER SAME MEAL EVERY DAY. 90 capsule 1 025 Active FLUoxetine (PROzac) 20 mg capsule Take 1 capsule (20 mg total) by mouth 1 (one) time each day. 024 2024 Discontinued(D iscontinued by another clinician) zolpidem (AMBIEN) 5 mg tablet TAKE 1 TABLET BY MOUTH EVERY DAY AT BEDTIME 021 2024 Discontinued(D iscontinued by another clinician) fluticasone propionate (FLONASE) 50 mcg/actuation nasal spray USE 1 SPRAY INTO EACH NOSTRIL TWICE A DAY 48 mL 1 025 2024 Discontinued tamsulosin (FLOMAX) 0.4 mg 24 hr capsule TAKE 1 CAPSULE BY MOUTH 30 MINUTES AFTER SAME MEAL EVERY DAY. 90 capsule 1 025 2024 Discontinued Hospital, Clinic, or Other Facility Administered Medication Ordered Dose Route Frequency Start Date End Date Status TC-99M tetrofosmin P radio-isotope injection 9.6 millicurie 9.6 millicurie IV Once in imaging 01/16/2025 01/16/2025 Ended TC-99M tetrofosmin P radio-isotope injection 29.3 millicurie 29.3 millicurie IV Once in imaging 01/16/2025 01/16/2025 Ende d regadenoson (LEXISCAN) injection 0.4 mg 0.4 mg IV Once in imaging 01/16/2025 01/16/2025 End ed Active Problems Problem Noted Date Diagnosed Date Preoperative cardiovascular examination 01/13/20 Assessment & Plan (01/12/2025 4:11 PM EDT): According to the Cole perioperative risk for myocardial infarction or cardiac arrest assessment tool, this patient has a 0.1% risk of myocardial infarction or cardiac arrest, intraoperatively or up to 30 days postop. At this time he continues to endorse shortness of breath with exertion. He does not have a history of nonobstructive coronary artery disease. Subsequently, we will update nuclear stress testing to further evaluate for any new evidence of ischemia. Should this be negative for any evidence of ischemia the patient is at acceptable risk and may proceed. Elevated blood pressure reading 01/12/2025 Assessment & Plan (01/12/2025 4:11 PM EDT): Blood pressure elevated during today's exam with a reading of 160/80. Likely in the setting of significant pain as the patient appears to be very uncomfortable in light of his chronic back pain. We will continue to monitor subsequent blood pressures during his next visits. He does understand that should BP remain greater than goal of 130/80 antihypertensive medications may be warranted. Educated on the importance of diet lifestyle to help further assist in reducing blood pressure. The patient was encouraged to follow low-salt low-fat diet, make purposeful strides towards weight loss, and engage in routine aerobic exercise as tolerated. LFT elevation 08/23/2024 Shortness of breath on [...] the kidneys. He states he understands. Sacroiliitis ([facility] V24) 02/07/2022 Overview (04/25/2024): Last Assessment & Plan: Mr. Willson is being followed at [facility] by Dr. Carreno where he [...] Encounters Date Type Department Care Team Description 02/07/2025 Telephone Internal Medicine [address] [phone] Beat[place] Riley [place] 02/07/2025 Telephone Internal Medicine [facility] 175 [facility] [address] [place] [address] Beatrice Riley [place] 02/07/2025 Telephone Internal Medicine [facility] [address] [facility] [address] [place] [address] Colon, [place], [place] 02/03/2025 Telephone Internal Medicine - [place] [address] [facility] [address] [place] [address] Colon, [place], [place] 01/20/2025 Telephone Internal Medicine - [place] [address] [facility] [address] [place] [address] Colon, [place], [place] 01/16/2025 1:00 PM EDT Ancillary Procedure [facility] Cardiology [facility] [address] [address] [place] [address] Coronary artery disease due to lipid rich plaque 01/12/2025 2:10 PM EDT Consult [facility] Cardiology [facility] [place] [address] Diann Sousa NP Coronary artery disease due to lipid rich plaque (Primary Dx); Hypercholesterolemia; Preoperative cardiovascular examination; Elevated blood pressure reading 01/11/2025 Telephone Internal Medicine - [place] [address] [facility] [address] [place] [address] Gregg Todd MD 01/10/2025 Telephone [facility] Cardiology [facility] [address] [place] [address] Zuleyka Escobar NP 01/06/2025 Telephone [facility] Cardiology [address] [place] [address] Gregg Todd MD 01/03/2025 Telephone Internal Medicine - [place] [address] [facility] [address] [place] [address] Gregg Todd MD 12/08/2024 8:39 AM EDT Anesthesia Event [facility] Endoscopy [address] [place] [address] Refugio Monte MD 12/08/2024 7:42 AM EDT - 12/08/2024 11:59 PM EDT Hospital Encounter [facility] [address] [place] [phone] Alok Mccormack MD Colon cancer screening Discharge Disposition: Home or Self Care 11/29/2024 Telephone Internal Medicine [facility] [address] [facility] [address] [place] [address] Gregg Todd MD 11/18/2024 Telephone Internal Medicine [facility] [address] [facility] [address] [place] [address] Gregg Todd MD from Last 3 Months Immunizations Name Administration Dates Next Due DTaP (Infanrix) 6wks to less than 7yo 07/29/2012 Hepatitis A Adult (Havrix; V aqta) 19yo and older 08/10/2015 Hepatitis B (Vwvizra-I-Furbm , Recombivax HB-Adult) 19yo and older 02/20/2017,09/12/2016,08/15/2016 [...] Hypertension DX:Hypertension HIV (human immunodeficiency virus infection) ([facility]/HCC V24, [facility]/HCC V28) DX:HIV (human im munodeficiency virus infection) ([facility]) Hemorrhoid Anemia Family History Medical History [...] your loved ones. For example, child care specialist or elderly care for an older [...] Sign Reading Time Taken Comments Blood Pressure 130/81 01/16/2025 1:10 PM EDT Pulse 48 01/12/2025 2:00 PM EDT Temperature 36.4 C (97.6 F) 12/08/2024 9:02 AM EDT Respiratory Rate 18 12/08/2024 9:19 AM EDT Oxygen Saturation 99% 01/12/2025 2:00 PM EDT Inhaled Oxygen Concentration - - Weight 87.1 kg (192 lb) 01/16/2025 1:10 PM EDT Height 177.8 cm (5' 10 ) 01/16/2025 1:10 PM EDT Body Mass Index 27.55 01/16/2025 1:10 PM EDT Plan of Treatment Upcoming Encounters Date Type Department Care Team (Late st Contact Info) Description 03/30/2025 8:15 AM EDT Office Visit Internal Medicine - [place] [address] [facility] [address] [place] [address] Gregg Todd MD [address] [place] [phone] 05/31/2025 2:15 PM EST Office Visit Pulmonolgy - [place] [address] [facility] [address] [place] [address] Felicia Sparrow MD [address] [place] [phone] Health Maintenance Due Date Last Done Comments MMR Vaccines (1 of 2 - Risk 2-dose series) 02/28/1982 Pneumococcal Vaccine: 50+ Years (1 of 2 - PCV) 02/28/1983 Hepatitis A Vaccines (2 of 2 - Risk 2-dose series) 02/08/2016 08/10/2015 Meningococcal ACWY Vaccine (2 - Risk 2-dose series) 12/09/2018 10/14/2018 Medicare Annual Wellness Visit 05/24/2022 COVID-19 Vaccine ( season) 2024 03/24/2023, 10/18/2020, 09/20/2020 RSV Immunization Adult Patients (1 - Risk 60-74 years 1-dose series) 2024 Influenza Vaccine (#1) 2025 04/22/2021, 2019 Hypertension/CHF/CAD Annual BMP Blood Test 09/21/2025 09/21/2024, 08/23/2024, 04/27/2024, Additional history exists Social Influencers of Health Screening 09/27/2025 09/27/2024 DTaP,Tdap,and Td Vaccines (3 - Td or Tdap) 10/31/2027 10/30/2017, 07/29/2012 Cholesterol Screening (Lipid Panel) 08/23/2029 08/23/2024, 04/27/2024, 09/29/2023 Colorectal Cancer Screening: Colonoscopy 12/08/2034 12/08/2024, 09/22/2014 Hepatitis B Vaccines Completed 02/20/2017, 09/12/2016, 08/15/2016 Zoster Vaccines Completed 06/16/2019, 01/19/2019 Hepatitis C Screening Completed 08/23/2024 Depression Screening Completed 09/27/2024 HIB Vaccines Aged Out No longer eligi [...] Name Priority Date/Time Associated Diagnosis Comments EXTERNAL XRAY REPORT 01/17/2025 NM LEXISCAN STRESS TEST W/ MYOCARDIAL PERFUSION Routine 01/16/2025 3:53 PM EDT Coronary artery disease due to lipid rich plaque ECG 12-LEAD Routine 01/12/2025 2:06 PM EDT Hypercholesterolemia COLONOSCOPY Routine 12/08/2024 8:58 AM EDT Colon cancer screening EXTERNAL XRAY REPORT 11/29/2024 COMPREHENSIVE METABOLIC PANEL STAT 09/21/2024 11:11 AM [...] Relevant to Health Maintenance Results * External Xray Report (01/17/2025) Only the most recent of2 resultswithin the time period is included. Anatomical Region Laterality Modality Radiographic Eleanor ging us Provider [facility] IMG XR PROCEDURES Final Result * NM LEXISCAN STRESS TEST W/ MYOCARDIAL PERFUSION (01/16/2025 3:53 PM EDT) Exercise/injec tion duration (min) 0 CV PACS STRESS Exercise/injec tion duration (sec) 40 CV PACS STRESS Peak SBP 102 mmHg CV PACS STRESS Peak DBP 60 mmHg CV PACS STRESS Peak HR 99 bpm CV PACS STRESS Baseline HR 59 bpm CV PACS STRESS Baseline SBP 130 mmHg CV PACS STRESS Baseline DBP 81 mmHg CV PACS STRESS Estimated workload 1.0 METS CV PACS STRESS Percent HR 62 % CV PACS STRESS Rate Pressure Product 10,098.0 mmHg*bpm CV PACS STRESS Target HR 136 bpm CV PACS STRESS TID 1.09 CV PACS STRESS Nuc Stress EF 70 % CV PAC S STRESS Nuc Rest EF 58 % CV PACS STRESS BSA 2.07 m2 CV PACS STRESS Anatomical Region Laterality Modality Nuclear Medicine 01/16/2025 2:24 PM EDT 01/16/2025 2:57 PM EDT Narrative 01/16/2025 4:46 PM EDT Raw Images and CineLoop Images: Impression: 1. Normal Regadenosone stress test with nuclear imaging. 2. The patient had dizziness but no chest pain during the test. 3. EKG at baseline was normal sinus rhythm, no ischemic EKG changes at stress. 4. LV Cavity size is normal. 5. No transient ischemic dialatation (TID 1.09) 6, CT scan showed mild calcification of the LAD. 7. Raw perfusion imgaes revelaed moderate in size, moderate in intensity hypoperfusion of the basal to apical inferior and inferolateral wall both at rest and stress. But when attenuation correction is applied, this perfusion defect normalizes predominantly indicating extracardiac soft tissue attenuation defect. There is a small area of hypoperfusion persisted in the apical inferior wall at rest which improves with stress and once again suggestive of artifact. Hence no ischemia or infarction. 8. Gated SPECT imaging was performed which demonstrated normal LV wall motion and thickening with a calculated LVEF of 70% at stress and 58% at rest. Stress Findings A pharmacological stress test was performed using regadenoson, 0.4 mg IV over 10-15 seconds, followed by radiopharmacological injection 10 seconds post infusion. Total stress time was 0 min and 40 sec. The patient reached the end of the protocol. Blood pressure demonstrated a hypotensive response. Heart rate demonstrated a normal response. The patient reported dizziness during the stress test that resolved with the consumption of caffeine. ECG 59-year-old male with a past medical history for dyspnea on exertion, hypertension, coronary artery disease, in for risk assessment prior to spinal surgery. The patient is not on cardiac medications during testing. Baseline EKG: Sinus rhythm There were no arrhythmias during stress. There were no arrhythmias during recovery. Nondiagnostic in the setting of a pharmacological nuclear stress test. Nuclear Study Quality Study technique: MPI, SPECT, multi, rest and stress, 1 day and gated. Overall image quality is good. CT attenuation correction was utilized. No radiopharmaceutical dose was extravasated. The time from injection to rest imaging is 60 mins. The time from injection to stress imaging is 40 mins. Stress Function Comments Stress ejection fraction is 70%. Rest Function Comments Resting ejection fraction was 58%. Diann Sousa NP CV STRESS PROCEDURES F inal Result * ECG 12 lead (01/12/2025 2:06 PM EDT) Ventricular Rate ECG 48 BPM GEMUSE Atrial Rate 48 BPM GEMUSE P-R Interval 160 ms GEMUSE QRS Duration 88 ms GEMUSE Q-T Interval 438 ms GEMUSE QTc 391 ms GEMUSE P Wave [place] 44 degrees GEMUSE R [place] 39 degrees GEMUSE T [place] 50 degrees GEMUSE ECG Interpretation Sinus bradycardia Otherwise normal ECG When compared with ECG of 02-DEC-2021 12:45, No significant change was found Confirmed by MD Tamez Christopher ([id number]) on 01/12/2025 3:58:34 PM GEMUSE 01/12/2025 2:06 PM EDT 01/12/2025 3:58 PM EDT Diann Sousa PARKS RECREATION DIRECTOR ECG ORDERABLES Final Result Performing Organization Address City/State/[facility] Co de Phone Number GEMUSE * COLONOSCOPY Anesthesia - MAC; [facility] ENDOSCOPY (12/08/2024 8:58 AM EDT) Anatomical Region Laterality Modality Other 12/08/2024 8:30 AM EDT Impressions 12/08/2024 8:59 AM EDT - Internal hemorrhoids. - Diverticulosis in the sigmoid colon. - No specimens collected. Recommendation: - Use fiber, for example Citrucel, Fibercon, Konsyl or Metamucil. - Repeat colonoscopy in 10 years for screening purposes. Narrative 12/08/2024 8:59 AM EDT [facility] GI Patient Name: Licha Willson Procedure Date: 12/08/2024 8:30 AM Date [...] or abscess without bleeding CPT copyright 2020 [employer]. All rights reserved. The codes documented in this report are preliminary and upon cpc coder review may be revised to meet current compliance requirements. Alok Mccormack MD 12/08/2024 8:59:00 AM This report has been signed electronically.Alok Mccormack MD Number of Addenda: 0 Note Initiated On: 12/08/2024 8:30 AM Scope In: Scope Out: Endoscopy Department at [facility] - [address] [place] [phone] Procedure Note Alok Mccormack MD - 12/08/2024 [facility] GI Patient Name: Licha Willson Procedure Date: 12/08/2024 8:30 AM Date [...] or abscess without bleeding CPT copyright 2020 [employer]. All rights reserved. The codes documented in this report are preliminary and upon cpc coder reviewmay be revised to meet current compliance requirements. Alok Mccormack MD 12/08/2024 8:59:00 AM This report has been signed electronically.Alok Mccormack MD Number of Addenda: 0 Note Initiated On: 12/08/2024 8:30 AM Scope In: Scope Out: Endoscopy Department at [facility] - [address] [place] [phone] IMPRESSION: - Internal hemorrhoids. - Diverticulosis in the sigmoid colon. - No specimens collected. Recommendation: - Use fiber, for example Citrucel, Fibercon, Konsylor Metamucil. - Repeat colonoscopy in 10 years for screening purposes. Alok Mccormack MD GI~PROCEDURE ORDERABLES Final Re sult * Comprehensive metabolic panel (09/21/2024 11:11 AM EDT) Sodium 141 133 - 145 mmol/L LAB CHEMISTRY METHOD 09/21/2024 1:06 PM EDT [facility] Potassium 4.1 3.5 - 5.5 mmol/L LAB CHEMISTRY METHOD 09/21/2024 1:06 PM EDT [facility] Chloride 107 96 - 110 mmol/L LAB CHEMISTRY METHOD 09/21/2024 1:06 PM EDT [facility] CO2 26 21 - 32 mmol/L LAB CHEMISTRY METHOD 09/21/2024 1:06 PM EDT [facility] Anion Gap 8 3 - 11 LAB CHEMISTRY METHOD 09/21/2024 1:[address] [facility] Glucose 95 70 - 100 mg/dL LAB CHEMISTRY METHOD 09/21/2024 1:[address] [facility] BUN 13 5 - 25 mg/dL LAB CHEMISTRY METHOD 09/21/2024 1:[address] [facility] Creatinine 0.88 0.70 - 1.30 mg/dL LAB CHEMISTRY METHOD 09/21/2024 1:[address] [facility] eGFR 98 >=60 mL/min/1. 73m2 LAB CHEMISTRY METHOD 09/21/2024 1:[address] [facility] Comment:Calculation based on the Chronic Kidney Disease Epidemiology Collaboration (CKD-EPI) equation refit without adjustment for race. BUN/Creatinine Ratio 14.8 LAB CHEMISTRY METHOD 09/21/2024 1:[address] [facility] Calcium 9.4 8.5 - 10.5 mg/dL LAB CHEMISTRY METHOD 09/21/2024 1:[address] [facility] AST (SGOT) 39 10 - 42 unit/L LAB CHEMISTRY METHOD 09/21/2024 1:[address] [facility] ALT (SGPT) 46 10 - 60 unit/L LAB CHEMISTRY METHOD 09/21/2024 1:[address] [facility] Alkaline Phosphatase 85 42 - 121 unit/L LAB CHEMISTRY METHOD 09/21/2024 1:[address] [facility] Total Protein 6.8 6.0 - 8.0 g/dL LAB CHEMISTRY METHOD 09/21/2024 1:[address] [facility] Albumin 3.8 3.2 - 5.0 g/dL LAB CHEMISTRY METHOD 09/21/2024 1:[address] [facility] Total Bilirubin 0.6 0.0 - 1.4 mg/dL LAB CHEMISTRY METHOD 09/21/2024 1:06 PM EDT [facility] Blood Venous blood specimen / Unknown Venipuncture / Unknown 09/21/2024 11:11 AM EDT 09/21/2024 11:49 AM EDT us Baldomero Bates MD LAB BLOOD ORDERABLES Final Resu lt [facility] [address] [place] [address], [place] [phone] * (ABNORMAL) Lipid panel with reflex to direct LDL (08/23/2024 9:33 AM EDT) Cholesterol 210(H) 0 - 200 mg/dL LAB CHEMISTRY METHOD 08/23/2024 11:24 AM EDT [facility] Triglycerides 154(H) 0 - 150 mg/dL LAB CHEMISTRY METHOD 08/23/2024 11:24 AM EDT [facility] HDL 58 >=40 mg/dL LAB CHEMISTRY METHOD 08/23/2024 11:24 AM EDT [facility] LDL Calculated 121(H) 0 - 100 mg/dL LAB CHEMISTRY METHOD 08/23/2024 11:[address] [facility] VLDL Cholesterol Yovany 30.8 mg/dL LAB CHEMISTRY METHOD 08/23/2024 11:[address] [facility] Non HDL Chol. (LDL+VLDL) 152(H) <145 mg/dL LAB CHEMISTRY METHOD 08/23/2024 11:24 AM EDT [facility] Chol/HDL Ratio 3.6 0.0 - 4.4 LAB CHEMISTRY METHOD 08/23/2024 11:[address] [facility] Blood Venous blood specimen / Unknown Venipuncture / Unknown 08/23/2024 9:33 AM EDT 08/23/2024 10:35 AM EDT us Юлия nAgel MD LAB BLOOD ORDERABLES Una l Result [facility] [address] [place] [address], [place] [phone] * Hepatitis panel, acute with reflex to confirmation (08/23/2024 9:33 AM EDT) Hepatitis B Surface Ag Negative Negative LAB CHEMISTRY METHOD 08/23/2024 12:18 PM EDT [facility] Hepatitis A Antibody IgM Negative Negative LAB CHEMISTRY METHOD 08/23/2024 12:18 PM EDT [facility] Hep B Core IgM Negative Negative LAB CHEMISTRY METHOD 08/23/2024 12:18 PM EDT [facility] Hepatitis C Antibody Negative Negative LAB CHEMISTRY METHOD 08/23/2024 12:18 PM EDT [facility] Blood Venous blood specimen / Unknown Venipuncture / Unknown 08/23/2024 9:33 AM EDT 08/23/2024 10:35 AM EDT Alok Mccormack MD LAB BLOOD ORDERABLES Final Resul t [facility] [address] [place] [address], [place] [phone] from Last 3 Months or Most Recently Relevant to Health Maintenance Insurance [employer] [place] Care Teams Visual Coordinator Relationship Specialty Start Date End Date Gregg Todd MD [address] [facility] [address] [place] [address] PCP - General Internal Medicine 04/17/21
--- OUTSIDE RECORDS SUMMARY | 2025-02-07 14:42 | XMS_ITS | Clinical Summary ---
Author Organization [facility] Address [address] [place] [address] Care Team Providers Care Financial Services Consultant Name Role Phone Gregg Todd MD Primary [...] age to complete this topic Care Teams Financial Services Consultant Relationship Specialty Start Date End Date Gregg Todd MD PCP - General Internal Medicine 06/29/23
--- OUTSIDE RECORDS SUMMARY | 2025-02-07 14:42 | XMS_ITS | Encounter Summary ---
Author Organization [facility] Address [address] [place] [address] Care Team Providers Care Lathe Machinist Name Role Phone Gregg Todd MD Primary Care Provider [phone] Reason for Visit * Reason Onset Date Comments Request For Order(s) 02/07/2025 [facility] Care Order [id number] Encounter Details Date Type Department Care Team ([facility] st Contact Info) Description 02/07/2025 Telephone Internal Medicine - [place] 175 [facility] [address] [place] [address] Beatrice Riley MA Social History Tobacco Use Types Packs/Day Years [...] care for your loved ones. For example, rn maternal child or elderly care for an older adult? [...] Author No 09/21/2024 3:51 PM EDT Jennifer Aelx RN * Are you blind or do you have serious difficulty seeing, even when wearing glasses? Answer Date of Assessment Author No 09/21/2024 3:51 PM EDT Jennifer Alex RN * Do you have serious difficulty walking or climbing stairs? Answer Date of Assessment Author No 09/21/2024 3:51 PM EDT Jennifer Aelx RN * Do you have serious difficulty [...] documented in this encounter Progress Notes * Beatrice Riley MA - 02/07/2025 8:33 AM EDT [facility] Order [id number] Please sign & fax [phone] documented in this encounter Plan of Treatment Upcoming Encounters Date Type Department Care Team (Late st Contact Info) Description 03/30/2025 8:15 AM EDT Office Visit Internal Medicine - [place] [address] [address] Gregg Todd MD [address] [place] [phone] 05/31/2025 2:15 PM EST Office Visit Pulmonolgy - [place] [address] [address] Felicia Sparrow MD [address] [place] [phone] documented as of this encounter Visit Diagnoses Not on filedocumented in this encounter Additional Health Concerns Assessment Noted Time PHQ-9 Depression Total Score: 10 025 9:46 PM EDT documented as of this encounter Care Teams Lathe Machinist Relationship Specialty Start Date End Date Gregg Todd MD [address] [address] PCP - General Internal Medicine 04/17/21 documented as of this encounter
--- OUTSIDE RECORDS SUMMARY | 2025-02-07 14:42 | XMS_ITS ---
Author Name [facility] Organization Unknown Care Team Organization Name Specialty Phone Email Start Date End Da te [facility] 02/01/2025 [facility] GURVINDER SHABAZZ Primary Care 04/22/2022 02/01/20 24
--- OUTSIDE RECORDS SUMMARY | 2025-02-07 14:42 | XMS_ITS | Encounter Summary ---
Author Organization [facility] Address [address] [place] [address] Care Team Providers Care Shuttleless Loom Weaver Name Role Phone Gregg Todd MD Primary Care Provider [phone] Reason for Visit * Reason Onset Date Comments Request For Order(s) 02/03/2025 [facility] Cert 01/20/25-03/20/25 Encounter Details Date Type Department Care Team ([facility] st Contact Info) Description 02/03/2025 Telephone Internal Medicine - [place] 175 [facility] [address] [place] [phone] Beatrice Riley MA Social History Tobacco Use [...] for your loved ones. For example, child adolescent psychiatrist or elderly care for an older adult? [...] Progress Notes * Beatrice Riley MA - 02/06/2025 10:16 AM EDT [facility] Faxed and scanned into chart [phone] * Beatrice Riley MA - 02/03/2025 9:08 AM EDT [facility] Cert 01/20/25-03/20/25 Please sign & fax [phone] documented in this encounter Plan of Treatment Upcoming Encounters Date Type Department Care Team (Late st Contact Info) Description 03/30/2025 8:15 AM EDT Office Visit Internal Medicine - [address] [phone] Gregg Todd MD [address] [place] [address] 05/31/2025 2:15 PM EST Office Visit Pulmonolgy - [place] [address] [phone] Felicia Sparrow MD [address] [place], [place] documented as of this encounter Visit Diagnoses Not on filedocumented in this encounter Additional Health Concerns Assessment Noted Time PHQ-9 Depression Total Score: 10 025 9:46 PM EDT documented as of this encounter Care Teams Shuttleless Loom Weaver Relationship Specialty Start Date End Date Gregg Todd MD [address] [address] PCP - General Internal Medicine 04/17/21 documented as of this encounter
--- OUTSIDE RECORDS SUMMARY | 2025-02-07 14:42 | XMS_ITS | Encounter Summary ---
Author Organization [facility] Address [address] [place] [address] Care Team Providers Care Hemotherapist Name Role Phone Gregg Todd MD Primary Care Provider [phone] Reason for Visit * Reason Onset Date Comments Request For Order(s) 02/07/2025 [facility] Care Order [id number] Encounter Details Date Type Department Care Team ([facility] st Contact Info) Description 02/07/2025 Telephone Internal Medicine - [place] 175 [facility] [address] [place] [address] Beatrice Riley MA Social History [...] care for your loved ones. For example, teacher early childhood development or elderly care for an older adult? [...] Date Author No 09/21/2024 3:51 PM EDT Jeninfer Alex RN documented in this encounter Progress Notes * Beatrice Riley MA - 02/07/2025 8:25 AM EDT [facility] Order [id number] Please sign & fax [phone] documented in this encounter Plan of Treatment Upcoming Encounters Date Type Department Care Team (Late st Contact Info) Description 03/30/2025 8:15 AM EDT Office Visit Internal Medicine - [place] [address] [phone] Gregg Todd MD [address] [place] [phone] 05/31/2025 2:15 PM EST Office Visit Pulmonolgy - [place] [address] [phone] Felicia Sparrow MD [address] [place] [phone] documented as of this encounter Visit Diagnoses Not on filedocumented in this encounter Additional Health Concerns Assessment Noted Time PHQ-9 Depression Total Score: 10 025 9:46 PM EDT documented as of this encounter Care Teams Hemotherapist Relationship Specialty Start Date End Date Gregg Todd MD [address] [address] PCP - General Internal Medicine 04/17/21 documented as of this encounter
--- OUTSIDE RECORDS SUMMARY | 2025-02-07 14:42 | XMS_ITS | Clinical Summary ---
Author Organization [facility], Address [address] [place] [address] Phone Care Team Providers Care Janitorial Assistant Name Role Phone Gregg Todd MD Primary Care Provider [phone] Allergies No known active allergies Medications traMADol (ULTRAM) 50 MG tablet Take 50 mg by mouth 0 Active tiZANidine (ZANAFLEX) 4 MG tablet TAKE 2 TABLETS BY MOUTH TWICE A DAY NEEDED FOR MUSCLE SPASMS 4 Active terbinafine (LamISIL) 250 MG tablet Take 250 mg by mouth 1 (one) time each day Active tamsulosin (FLOMAX) 0.4 MG 24 hr capsule TAKE 1 CAPSULE BY MOUTH 30 MINUTES AFTER SAME MEAL EVERY DAY. 5 Active simvastatin (ZOCOR) 20 MG tablet Take 20 mg by mouth 1 (one) time each day in the evening Active omeprazole (PriLOSEC) [address] capsule Take by mouth 1 (one) time each day 5 Active mupirocin (BACTROBAN) 2 % ointment APPLY SPARINGLY TO AFFECTED AREA(S) 3 TIMES A DAY 1 Active meclizine (ANTIVERT) 25 MG tablet TAKE 1 TABLET BY MOUTH 3 TIMES A DAY IF NEEDED FOR DIZZINESS. 5 Active lidocaine (LIDODERM) 5 % patch APPLY 1 PATCH TOPICALLY EVERYDAY FOR 30 DAYS Active ipratropium (ATROVENT) 0.03 % nasal spray USE 2 SPRAYS IN EACH NOSTRIL 3 TIMES A DAY 5 Active hydrOXYzine (ATARAX) 25 MG tablet TAKE 1 TABLET EVERY DAY BY ORAL ROUTE FOR 90 DAYS, FOR ANXIETY. 5 Active HYDROcodone-efrain taminophen (NORCO) 5-325 MG per tablet take 1 tablet by mouth every 4 to 6 hours as needed for pain Active albuterol HFA (PROVENTIL HFA;VENTOLIN HFA) 108 (90 Base) MCG/ACT inhaler inhale 2 puffs by mouth every 6 hours as needed for wheeze Active Qvar RediHaler 80 MCG/ACT aerosol Inhale 2 puffs in the morning and 2 puffs in the evening. 5 07/01/19 26 Active Biktarvy 50-200-25 MG tablet Take 1 tablet by mouth 1 (one) time each day Active bisacodyl (DULCOLAX) 5 MG EC tablet Take 2 tablets by mouth right before beginning bowel prep. See instructions provided by the office 5 Active celecoxib (CeleBREX) 100 MG capsule Take 100 mg by mouth in the morning and 100 mg in the evening. Active doxycycline (VIBRAMYCIN) 100 MG capsule Take 100 mg by mouth 1 (one) time each day 2 Active DULOXETINE HCL PO Take by mouth 0 Active ferrous sulfate 324 MG tablet delayed-release Take 324 mg by mouth 4 Active FLUoxetine (PROzac) 20 MG capsule Take 20 mg by mouth Active Fluticasone Furoate (Arnuity Ellipta) 100 MCG/ACT aerosol powder Inhale 1 puff in the morning. 5 06/30/19 26 Active fluticasone (FLONASE) 50 MCG/ACT nasal spray Administer 1 spray into each nostril in the morning and 1 spray in the evening. 5 Active gabapentin (NEURONTIN) 600 MG tablet TAKE 1 TABLET BY MOUTH FOUR TIMES DAILY FOR PAIN Active Active Problems Problem Noted Date Diagnosed Date Elevated blood pressure reading 01/12/2025 Preoperative cardiovascular examination 01/13/20 25 Low back pain 01/11/2025 Degeneration of intervertebral disc 01/11/2025 Scoliosis 01/11/2025 Dyspnea on exertion 08/13/2022 Overview (01/16/2025): Last Assessment & Plan: As I noted [...] affecting the kidneys. He states he understands. Inflammation of sacroiliac joint 02/07/2022 Overview (01/16/2025): Last Assessment & Plan: Mr. Willson is being followed at [facility] by Dr. Carreno where he [...] also consider left L4-S1 medial branch blocks. Hiatal hernia 07/25/2019 Gastroesophageal reflux disease 06/01/2019 Herpes simplex type 1 infection 06/01/2019 Insomnia 06/01/2019 Renal stone 06/01/2019 Folliculitis 03/24/2019 Internal hemorrhoids 02/02/2019 Spinal stenosis of lumbar region 02/02/2019 Overview (01/16/2025): 06/2018 S/p L2-3 partial laminectomy Last Assessment [...] this point. See notes under that section. Hypertension 01/04/2019 Overview (01/16/2025): Last Assessment & Plan: Today the blood pressure is elevated but when I reviewed his last office note in June his blood pressure at that time appear to be good. Benign prostatic hyperplasia 12/25/2017 High lipase level in serum 12/25/2017 Depressive disorder 11/17/2017 Erectile dysfunction 11/17/2017 Memory loss 11/17/2017 Anxiety 09/10/2017 Tremor 08/12/2017 Hyperlipidemia 11/28/2016 Hemangioma of liver 04/09/2016 Ulcerative esophagitis 10/02/2015 Vitamin D deficiency 03/06/2015 Chronic sinusitis 07/01/2013 Gout 10/08/2011 Encounters Date Type Department Care Team Description 01/16/2025 10:30 AM EDT Office Visit [facility] [address] [place] [address] [place] [address] Arya Steinberg MD Degeneration of lumbar intervertebral disc (Primary Dx) 01/16/2025 Orders Only [facility] [address] [place] [address] [place] [address] Melissa Portillo from Last 3 Months Social History Tobacco Use Types Packs/Day Years Used Date Smoking Tobacco: Never Assessed Sex and Gender Information Value Date Recorded Sex Assigned at Not on file Legal Sex Male 8:07 AM EDT Gender Identity Not on file Sexual Orientation Not on file Plan of Treatment Health Maintenance Due Date Last Done Comments Pneumococcal Vaccine: 50+ Ye ars (1 of 2 - PCV) 02/28/1983 Colorectal Cancer Screening: Annual FOBT 02/28/2013 Colorectal Cancer Screening: Colonoscopy 02/28/2013 Colorectal Cancer Screening: Sigmoidoscopy 02/28/2013 Hepatitis B Vaccine (1 of 3 - Risk 3-dose series) 2024 02/20/2017, 09/12/2016, 08/15/2016 Influenza Vaccine (#1) 2025 04/22/2021 Insurance [facility] Member Subscriber Plan / Payer (Ef fective 2023-Present) Name:Roni Willson Relation to Subscriber:Self Name:Roni Willson Payer ID:[id number] (NAIC) Group ID:[id number] Type:Not on file Address: [address] [id number] Medicaid [place] Care Teams Janitorial Assistant Relationship Specialty Start Date End Date Gregg Todd MD [address] [place] [phone] PCP - General Internal Medicine 01/11/25
--- OUTSIDE RECORDS SUMMARY | 2025-02-07 14:42 | XMS_ITS | Encounter Summary ---
Author Organization [facility] Address [address] [place] [address] Care Team Providers Care Bilingual Research Interviewer Name Role Phone Gregg Todd MD Primary Care Provider [phone] Reason for Visit * Reason Onset Date Comments Request For Order(s) 02/07/2025 [facility] Care Order [id number] Encounter Details Date Type Department Care Team ([facility] st Contact Info) Description 02/07/2025 Telephone Internal Medicine - [place] 175 [facility] [address] [place] [address] Beatrice Riley MA Social History [...] care for your loved ones. For example, professor of early childhood education or elderly care for an older adult? [...] Notes * Beatrice Riley MA - 02/07/2025 8:36 AM EDT [facility] Order [id number] Please sign & fax [phone] documented in this encounter Plan of Treatment Upcoming Encounters Date Type Department Care Team (Late st Contact Info) Description 03/30/2025 8:15 AM EDT Office Visit Internal Medicine - [place] [address] [phone] Gregg Todd MD [address] [place] [phone] 05/31/2025 2:15 PM EST Office Visit Pulmonolgy - [place] [address] [address] Felicia Sparrow MD [address] [place] [phone] documented as of this encounter Visit Diagnoses Not on filedocumented in this encounter Additional Health Concerns Assessment Noted Time PHQ-9 Depression Total Score: 10 025 9:46 PM EDT documented as of this encounter Care Teams Bilingual Research Interviewer Relationship Specialty Start Date End Date Gregg Todd MD [address] [address] PCP - General Internal Medicine 04/17/21 documented as of this encounter
== END 2025-02-07 14:20 | disposition home or self-care (01) ==
LOC: HO.HNS 13:46
PROVIDERS: PCP Internal Medicine; Visit Provider Physician Assistant
DX: Z98.1 Arthrodesis status (principal)
CPT/HCPCS: 99024

== ENCOUNTER → 2025-02-07 13:45 | Outpatient (BNVA) | payer MEDICARE, MEDICAID, SELFPAY | PROVIDERS: PCP Internal Medicine; Visit Provider Physician Assistant | DX: Z98.1 Arthrodesis status (principal) | CPT/HCPCS: 99212 ==

== ENCOUNTER 2025-03-06 09:07 | Outpatient (AMB) | payer MEDICARE, MEDICAID, SELFPAY ==
--- NOTE | 2025-03-06 09:15 | A.OFFVIS_ITS ---
Vital Signs 03/06/25 09:16 Height 5 ft 11 in Weight 191 lb BMI 26.6 BP 118/68 Blood Pressure Location Lt brachial Position Sitting Respiration 16 Pulse 85 Pulse Source Pulse Oximeter Pulse Oximetry (%) 95 Oxygen Delivery Method Room Air Intake Visit Reasons: Pill Count Geothermal Operations Manager Required: No Allergies No Known Allergies Allergy (Verified 03/06/25 09:19) Medication List - Last Reconciled 03/06/25 by Loida Louie LPN albuterol sulfate 90 mcg/actuation 2 puffs inhalation Q6H PRN beclomethasone dipropionate 80 mcg/actuation (Qvar RediHaler) 2 inhalations inhalation BID fkhmzbarm-xjwxexer-nrbkahh ala 50-200-25 mg (Biktarvy) 1 tab PO DAILY celecoxib 100 mg PO BID PRN doxycycline hyclate 100 mg PO DAILY PRN fluticasone propionate 50 mcg/actuation 1 spray intranasal BID gabapentin 600 mg PO QID hydrocodone-acetaminophen 5-325 mg 1 tab PO Q4-6H PRN Held on 01/19/25. Instructions: Resume on 02/19/25. Hold until oxycodone Rx is complete hydroxyzine HCl 25 mg PO DAILY lidocaine 5% 1 patch topical DAILY 30 days meclizine 25 mg PO TID PRN mupirocin 2% 1 appl topical DAILY PRN naloxone 4 mg/actuation (Narcan) 4 mg intranasal Q2M PRN omeprazole 40 mg PO DAILY simvastatin 20 mg PO BEDTIME tamsulosin 0.4 mg PO DAILY tizanidine 8 mg PO BEDTIME PRN HPI HPI Pill Count: Details: History of Present Illness The patient is a 60-year-old male presenting with postoperative pain management following lumbar discectomy and fusion surgery. The surgery was performed on January 17, involving L2-3, L3-4, L4-5, and L5-S1 levels. Post-surgery, the patient reports persistent tenderness and soreness, particularly in the left buttock and calf, with increased sensitivity noted on the left side. The patient describes a new onset of numbness in the right foot, which has become more noticeable post-surgery. He also experiences increased pain in the afternoon, despite using Tylenol and Voltaren, and has been prescribed oxycodone for pain management. The patient has been informed about opioid-induced hyperalgesia, which may contribute to his heightened sensitivity to touch. He has been using lidocaine patches to manage skin sensitivity and has been advised to continue physical therapy and stretching for muscle stiffness. Pain Description - Onset: Post-surgical pain following lumbar discectomy and fusion on January 17 - Quality: Tenderness and soreness, particularly in the left buttock and calf - Location: Left buttock, calf, and right foot - Exacerbating factors: Increased pain in the afternoon - Relieving factors: Use of oxycodone, Tylenol, Voltaren, and lidocaine patches Physical Exam - Appears afebrile. - Alert and oriented. - Mood and affect appropriate. - Follows and participates in conversation appropriately. - Respiratory effort is unlabored. - TTP on superficial palpation. Pain Management - Affect: Pain impacts daily activities, particularly in the afternoon - Analgesia: Currently using oxycodone, Tylenol, Voltaren, and lidocaine patches - Adverse Effects: Opioid-induced hyperalgesia causing increased sensitivity - Activities of Daily Living: Pain limits physical activity, advised to avoid lifting more than 8 to 10 pounds - Aberrant Drug Related Behaviors: No aberrant behaviors reported, patient adheres to prescribed medication regimen [facility] Medical History Pulmonary nodules HIV (human immunodeficiency virus infection) Arthritis Hiatal hernia BARDALES (dyspnea on exertion) Asthma History of MRSA infection History of blood transfusion GERD (gastroesophageal reflux disease) BPH (benign prostatic hyperplasia) [place] (hard of hearing) Numbness Dizziness Seasonal allergies HLD (hyperlipidemia) Chronic nasal congestion Surgical History (Updated 02/07/25 @ 14:26 by RAUL Comer) Hx of basal cell carcinoma excision Hx of colonoscopy (11/2024) Hx of blepharoplasty (2018) Hx of spinal surgery (2021) Social History (Updated 01/03/25 @ 13:38 by Susanne Patterson RN) Household Members: Spouse Housing: House Are you a primary tire care manager to a significant other at home: No Do you presently have visiting nurse or other home services: No 75 years or older and lives alone: No Comment: vivid dreams and falls out of bed Patient Tobacco Use Status: Never used Tobacco service: No Physical Exam Vital Signs: Last Vital Signs Pulse 85 03/06/25 09:16 Resp 16 03/06/25 09:16 BP 118/68 03/06/25 09:16 Pulse Ox 95 03/06/25 09:16 Oxygen Delivery Method Room Air 03/06/25 09:16 BMI result Body Mass Index 26.6 Assessment & Plan Assessment & Plan (1) Degenerative disc disease (DDD) of lumbar region with discogenic back pain and leg pain: Code(s): M51.362 - Other intervertebral disc degeneration, lumbar region with discogenic back pain and lower extremity pain Category: Medical (2) S/P lumbar fusion: Code(s): Z98.1 - Arthrodesis status Category: Surgical (3) halfway (current) use of opiate analgesic: Code(s): Z79.891 - rn long term care (current) use of opiate analgesic Category: Medical Plan Plan Patient was informed and verbally consented to the use of an ambient scribe for clinic note documentation during this visit. 1. Postoperative Pain Following Lumbar Discectomy And Fusion - Continue current pain management regimen with Tylenol, and Voltaren prn - Advise use of lidocaine patches for skin sensitivity - Recommend continuation of physical therapy and stretching exercises - Follow-up in three weeks for pill count and medication refill 2. Opioid-Induced Hyperalgesia - Educate patient on opioid-induced hyperalgesia and its effects - Consider gradual tapering of opioids if pain management allows 3. Muscle Stiffness Post-Surgery - Continue physical therapy and stretching exercises to alleviate stiffness - Avoid lifting more than 8 to 10 pounds to prevent exacerbation 4. Chronic Opiate Use - Refilled Vicodin 5/325mg #180 tabs; return for count/refill in 3 weeks Discussion Notes During the visit, I discussed with the patient the effects of opioid-induced hyperalgesia and the importance of managing postoperative pain effectively. We reviewed the current pain management plan, including the use of Tylenol, Voltaren, and lidocaine patches. I advised the patient to continue physical therapy and stretching exercises to address muscle stiffness and to avoid lifting more than 8 to 10 pounds. Patient Instructions - Continue taking prescribed medications as directed. - Use lidocaine patches for skin sensitivity as needed. - Engage in physical therapy and stretching exercises regularly. - Avoid lifting more than 8 to 10 pounds. - Follow up in three weeks for pill count and medication refill. Medications: Resumed hydrocodone-acetaminophen 5-325 mg Partial Fill upon patient request. 1 tab PO Q4-6H PRN 180 tabs 0RF pain hydrocodone-acetaminophen 5-325 mg 1 tab PO Q4-6H PRN 180 tabs 0RF pain Coding Level of Care Code Est Pt Level 4 (89455) Diagnoses Degenerative disc disease (DDD) of lumbar region with discogenic back pain and leg pain M51.362 S/P lumbar fusion Z98.1 halfway (current) use of opiate analgesic Z79.891
[2025-03-06 09:16] VITALS: BP 118/68; PULSE 85; RESP 16; O2SAT 95; BMI 26.6
--- OUTSIDE RECORDS SUMMARY | 2025-03-06 10:41 | XMS_ITS | Clinical Summary ---
Author Organization LL 175 [facility] Address [address] [place] [address] Phone Care Team Providers Care Metal Annealer Name Role Phone Gregg Todd MD Primary Care Provider [phone] Allergies No known active allergies Medications bictegravir-emt ricitabine-teno fovir alafenamide (Biktarvy) 50-200-25 mg per tablet Take 1 Tab by mouth daily. 06/29/19 20 Active doxycycline (VIBRAMYCIN) 100 mg capsule Take 100 mg by mouth daily. 10/24/19 22 Active gabapentin (NEURONTIN) 600 mg tablet TAKE [...] NEEDED FOR MUSCLE SPASMS 02/03/20 24 Active fluticasone furoate (Arnuity Ellipta) 100 mcg/actuation blister with device inhaler Inhale 1 puff by mouth 1 (one) time each day. 1 each 11 06/30/19 25 2025 Active beclomethasone dipropionate (Qvar RediHaler) 80 mcg/actuation HFA aerosol breath activated inhaler Inhale 2 puffs by mouth 2 (two) times a day. 3 each 3 07/01/19 25 2025 Active albuterol HFA (PROAIR HFA ; [...] bedtime. 90 tablet 1 10/27/19 25 Active polyethylene glycol (Golytely) 236-22.74-6.74 -5.86 [...] DAY 90 capsule 1 11/29/19 25 Active fluticasone propionate (FLONASE) 50 mcg/actuation nasal spray SPRAY 1 SPRAY INTO EACH NOSTRIL TWICE A DAY 48 mL 1 01/20/20 25 Active tamsulosin (FLOMAX) 0.4 mg 24 hr capsule TAKE 1 CAPSULE BY MOUTH 30 MINUTES AFTER SAME MEAL EVERY DAY. 90 capsule 1 01/20/20 25 Active terbinafine (LamISIL) 250 mg tablet TAKE 1 TABLET BY MOUTH EVERY DAY 30 tablet 2 02/09/20 25 Active meclizine (ANTIVERT) 25 mg tablet TAKE 1 TABLET BY MOUTH 3 TIMES A DAY IF NEEDED FOR DIZZINESS. 90 tablet 1 02/17/20 25 Active terbinafine (LamISIL) 250 mg tablet TAKE 1 TABLET BY MOUTH EVERY DAY 30 tablet 2 11/01/19 25 2024 Discontinued meclizine (ANTIVERT) 25 mg tablet TAKE 1 TABLET BY MOUTH 3 TIMES A DAY IF NEEDED FOR DIZZINESS. 90 tablet 1 12/20/19 25 2024 Discontinued Active Problems Problem Noted [...] the kidneys. He states he understands. Sacroiliitis ([facility] V24) 02/07/2022 Overview (04/25/2024): Last Assessment & Plan: Mr. Willson is being followed at [facility] by Dr. Carreno where he [...] Encounters Date Type Department Care Team Description 02/10/2025 [facility] [place] [address] [facility] [address] [place] [address] Beatrice Riley MA 02/07/2025 [facility] [address] [facility] [address] [place] [address] ColonBeatrice MA 02/07/2025 Telephone Internal Medicine [facility] [address] [facility] [address] [place] [address] Colon, RANDALL Barron 02/07/2025 [facility] [address] [facility] [address] [place] [address] ColonBeatrice MA 02/03/2025 [facility] [address] [facility] [address] [place] [address] Colon, RANDALL Barron 01/20/2025 Telephone Internal Medicine [facility] [address] [facility] [address] [place] [address] Colon, RANDALL Barron 01/16/2025 1:00 PM EDT Ancillary Procedure [facility] Card[facility] [address] [place] [address] Coronary artery disease due to lipid rich plaque 01/12/2025 2:10 PM EDT Consult [facility] Card[facility] [address] [place] [address] Diann Sousa NP Coronary artery disease due to lipid rich plaque (Primary Dx); Hypercholesterolemia; Preoperative cardiovascular examination; Elevated blood pressure reading 01/11/2025 Telephone Internal Medicine - [place] [address] [facility] [address] [place] [address] Gregg Todd MD 01/10/2025 Telephone [facility] [address] [place] [phone] Zuleyka Escobar NP 01/06/2025 Telephone [facility] Cardiology [address] [place] [phone] Gregg Todd MD 01/03/2025 Telephone Internal Medicine - [place] [address] [facility] [address] [place] [phone] Gregg Todd MD 12/08/2024 8:39 AM EDT Anesthesia Event [facility] [address] [place] [phone] Refugio Monte MD 12/08/2024 7:42 AM EDT - 12/08/2024 11:59 PM EDT Hospital Encounter [facility] [address] [place] [phone] Alok Mccormack MD Colon cancer screening Discharge Disposition: Home or Self Care from Last 3 Months Immunizations Name Administration Dates Next Due DTaP (Infanrix) 6wks to less than 7yo 07/29/2012 Hepatitis A Adult (Havrix; V aqta) 19yo and older 08/10/2015 Hepatitis B (Wgmvvio-W-Jfdhs , Recombivax HB-Adult) 19yo and older 02/20/2017,09/12/2016,08/15/2016 [...] lumbar disc HIV (human immunodeficiency virus infection) ([facility] V24, [facility] V28) 01/04/2019 DX:HIV (human im munodeficiency virus infection) ([facility]) Hypertension [...] Hypertension DX:Hypertension HIV (human immunodeficiency virus infection) ([facility] V24, [facility] V28) DX:HIV (human im munodeficiency virus infection) ([facility]) Hemorrhoid Anemia Family History Medical History [...] for your loved ones. For example, children's counselor or elderly care for an older adult? [...] AM EDT Office Visit Internal Medicine - [place] [address] [phone] Gregg Todd MD [address] [address] 05/31/2025 2:15 PM EST Office Visit Pulmonology - [place] [address] [address] Felicia Sparrow MD [address] [place] [address] [address] [place] [address] Health Maintenance Due Date Last Done Comments MMR Vaccines (1 of 2 - Risk 2-dose series) 02/28/1982 Pneumococcal Vaccine: 50+ Years (1 of 2 - PCV) 02/28/1983 Hepatitis A Vaccines (2 of 2 - Risk 2-dose series) 02/08/2016 08/10/2015 Meningococcal ACWY Vaccine (2 - Risk 2-dose series) 12/09/2018 10/14/2018 Medicare Annual Wellness Visit 05/24/2022 RSV Immunization Adult Patients (1 - Risk 60-74 years 1-dose series) 2024 COVID-19 Vaccine ( - season) 2025 03/24/2023, 10/18/2020, 09/20/2020 Influenza Vaccine (#1) 2025 04/22/2021, 2019 Hypertension/CHF/CAD [...] 12/08/2024 8:58 AM EDT Colon cancer screening COMPREHENSIVE METABOLIC PANEL STAT 09/21/2024 11:11 AM [...] Maintenance Results * External Xray Report (01/17/2025) Anatomical Region Laterality Modality Radiographic Eleanor ging [...] GEMUSE QTc 391 ms GEMUSE P Wave Sanders 44 degrees GEMUSE R Sanders 39 degrees GEMUSE T Sanders 50 degrees GEMUSE ECG Interpretation Sinus bradycardia Otherwise normal ECG When compared with ECG of 02-DEC-2021 12:45, No significant change was found Confirmed by MD Dashawn, Luis Miguel ([id number]) on 01/12/2025 3:58:34 PM GEMUSE 01/12/2025 2:06 PM EDT 01/12/2025 3:58 PM EDT Diann Sousa NP ECG ORDERABLES Final Result GEMUSE * COLONOSCOPY Anesthesia - MAC; [facility] ENDOSCOPY (12/08/2024 8:58 AM EDT) Anatomical Region Laterality Modality Other 12/08/2024 8:30 AM EDT Impressions 12/08/2024 8:59 AM EDT - Internal hemorrhoids. - Diverticulosis in the sigmoid colon. - No specimens collected. Recommendation: - Use fiber, for example Citrucel, Fibercon, Konsyl or Metamucil. - Repeat colonoscopy in 10 years for screening purposes. Narrative 12/08/2024 8:59 AM EDT [facility] Patient Name: Licha Willson Procedure [...] or abscess without bleeding CPT copyright 2020 [employer]. All rights reserved. The codes documented in this report are preliminary and upon tram inspector review may be revised to meet current compliance requirements. Alok Mccormack MD 12/08/2024 8:59:00 AM This report has been signed electronically.Alok Mccormack MD Number of Addenda: 0 Note Initiated On: 12/08/2024 8:30 AM Scope In: Scope Out: Endoscopy Department at [facility] - [address] [place] [phone] Procedure Note Alok Mccormack MD - 12/08/2024 [facility] Patient Name: Licha Willson Procedure [...] or abscess without bleeding CPT copyright 2020 [employer]. All rights reserved. The codes documented in this report are preliminary and upon tram inspector reviewmay be revised to meet current compliance requirements. Alok Mccormack MD 12/08/2024 8:59:00 AM This report has been signed electronically.Alok Mccormack MD Number of Addenda: 0 Note Initiated On: 12/08/2024 8:30 AM Scope In: Scope Out: Endoscopy Department at [facility] - [address] [place] [phone] IMPRESSION: - Internal hemorrhoids. - Diverticulosis in the sigmoid colon. - No specimens collected. Recommendation: - Use fiber, for example Citrucel, Fibercon, Konsylor Metamucil. - Repeat colonoscopy in 10 years for screening purposes. Alok Mccormack MD GI~PROCEDURE ORDERABLES Final Re sult * Comprehensive metabolic panel (09/21/2024 11:11 AM EDT) Sodium 141 133 - 145 mmol/L LAB CHEMISTRY METHOD 09/21/2024 1:[address] [facility] Potassium 4.1 3.5 - 5.5 mmol/L LAB CHEMISTRY METHOD 09/21/2024 1:[address] [facility] Chloride 107 96 - 110 mmol/L LAB CHEMISTRY METHOD 09/21/2024 1:[address] [facility] CO2 26 21 - 32 mmol/L LAB CHEMISTRY METHOD 09/21/2024 1:[address] [facility] Anion Gap 8 3 - [...] LAB CHEMISTRY METHOD 09/21/2024 1:06 PM EDT [facility] AST (SGOT) 39 10 - [...] 09/21/2024 1:[address] [facility] Blood Venous blood specimen / Unknown Venipuncture / Unknown 09/21/2024 11:11 AM EDT 09/21/2024 11:49 AM EDT us Baldomero Bates MD LAB BLOOD ORDERABLES Final Resu lt [facility] [address] [place] [address], * (ABNORMAL) Lipid panel with reflex to direct LDL (08/23/2024 9:33 AM EDT) Cholesterol 210(H) 0 - 200 mg/dL LAB CHEMISTRY METHOD 08/23/2024 11:[address] [facility] Triglycerides 154(H) 0 - 150 mg/dL LAB CHEMISTRY METHOD 08/23/2024 11:[address] [facility] HDL 58 >=40 mg/dL LAB CHEMISTRY METHOD 08/23/2024 11:24 AM T [facility] LDL Calculated 121(H) 0 - 100 mg/dL LAB CHEMISTRY METHOD 08/23/2024 11:24 AM EDT [facility] VLDL Cholesterol Yovany 30.8 mg/dL LAB CHEMISTRY METHOD 08/23/2024 11:24 AM EDT [facility] Non HDL Chol. (LDL+VLDL) 152(H) <145 mg/dL LAB CHEMISTRY METHOD 08/23/2024 11:24 AM EDT [facility] Chol/HDL Ratio 3.6 0.0 - 4.4 LAB CHEMISTRY METHOD 08/23/2024 11:24 AM EDT [facility] Blood Venous blood specimen / Unknown Venipuncture / Unknown 08/23/2024 9:33 AM EDT 08/23/2024 10:35 AM EDT Юлия Angel MD LAB BLOOD ORDERABLES Una tovar Result [facility] [address] [place] [address], [place] [phone] * Hepatitis panel, acute with reflex to confirmation (08/23/2024 9:33 AM EDT) Hepatitis B Surface Ag Negative Negative LAB CHEMISTRY METHOD 08/23/2024 12:18 PM EDT [facility] Hepatitis A Antibody IgM Negative Negative LAB CHEMISTRY METHOD 08/23/2024 12:18 PM EDT [facility] Hep B Core IgM Negative Negative LAB CHEMISTRY METHOD 08/23/2024 12:18 PM EDT [facility] Hepatitis C Antibody Negative Negative LAB CHEMISTRY METHOD 08/23/2024 12:18 PM EDT [facility] Blood Venous blood specimen / Unknown Venipuncture / Unknown 08/23/2024 9:33 AM EDT 08/23/2024 10:35 AM EDT Alok Mccormack MD LAB BLOOD ORDERABLES Final Resul t [facility] [address] [place] [address], from Last 3 Months or Most Recently Relevant to Health Maintenance Insurance [employer] [place] - [place] Care Teams Metal Annealer Relationship Specialty Start Date End Date Gregg Todd MD [address] [facility] [address] [place] [address] PCP - General Internal Medicine 04/17/21
--- OUTSIDE RECORDS SUMMARY | 2025-03-06 10:41 | XMS_ITS | Clinical Summary ---
Author Organization [facility] Address [address] [place] [address] Care Team Providers Care Matte Cutter Name Role Phone Gregg Todd MD Primary [...] age to complete this topic Care Teams Matte Cutter Relationship Specialty Start Date End Date Gregg Todd MD PCP - General Internal Medicine 06/29/23
== END 2025-03-06 09:38 | disposition home or self-care (01) ==
PROVIDERS: PCP Internal Medicine; Visit Provider Internal Medicine
DX: M51.362 Other intervertebral disc degeneration, lumbar region with discogenic back pain and lower extremity pain (principal); Z98.1 Arthrodesis status; Z79.891 Long term (current) use of opiate analgesic
CPT/HCPCS: 99214

== ENCOUNTER → 2025-03-06 09:07 | Outpatient (BNVA) | payer MEDICARE, MEDICAID, SELFPAY | PROVIDERS: PCP Internal Medicine; Visit Provider Internal Medicine | DX: Z98.1 Arthrodesis status (principal); M51.362 Other intervertebral disc degeneration, lumbar region with discogenic back pain and lower extremity pain; Z79.891 Long term (current) use of opiate analgesic | CPT/HCPCS: 99212 ==

== ENCOUNTER 2025-03-21 11:12 | Outpatient (REF) | payer MEDICARE, MEDICAID, SELFPAY ==
--- NOTE | ~2025-03-21 | XR_ITS ---
Exam: X-ray lumbar spine 4 view TECHNIQUE: AP, and lateral: Flexion, neutral, and extension view x-rays of the lumbar spine. Prior: 01-18-2025 CT scan FINDINGS: There are 5 nonrib-bearing lumbar segments. There are 5 non-rib bearing lumbar segments. Vertebral body height and alignment is preserved. Postoperative changes are again noted with posterior pedicle screws and rods at B3-B1-N5-L5-S1. Hardware is intact. There are also inner body spacers seen at levels without subsidence. T12-L1: There is minimal disc space narrowing L1-L2: Unremarkable L2-L3: There is grade 1 retrolisthesis without instability. L3-L4: Unremarkable L4-L5: Unremarkable L5-S1: Unremarkable XR/XR lumbar spine 4V min IMPRESSION: PLIF L2-S1. There is grade 1 retrolisthesis at L2-3 without instability. Electronically signed by: Zbigniew Garrett MD 03/21/2025 01:31 PM EDT
== END 2025-03-21 11:13 | disposition home or self-care (01) ==
LOC: HO.HOSX 11:12
PROVIDERS: Visit Provider Physician Assistant
DX: Z98.1 Arthrodesis status (principal)
CPT/HCPCS: 72110; 99212

== ENCOUNTER 2025-03-21 12:53 | Outpatient (AMB) | payer MEDICARE, MEDICAID, SELFPAY ==
--- NOTE | 2025-03-21 13:21 | A.SPINEOV_ITS ---
Intake Visit Reasons: 2nd post op with Xrays Intake Note: Mr. Willson is here today for his 2nd post op visit with x-rays. Software Applications Designer Required: No Allergies No Known Allergies Allergy (Verified 03/06/25 09:19) Assessment & Plan Assessment & Plan (1) S/P lumbar fusion: Code(s): Z98.1 - Arthrodesis status Category: Surgical Plan Procedure: L2-3, L3-4, L4-5 and L5-S1 OLIF Roni is a pleasant 59 year old male who comes in today for his 2nd postop appointment after having L2-S1 OLIF completed by Dr. Valdovinos on 01/17/25. To recap durign his last office visit he was still reporting some low back and left leg pain. Today, he reports that he still is suffering from some low back stiffness/pain, and intermittent left-sided leg pain primarily in the left anterior thigh. Despite this, he does state that he has been making marked improvements with his pain. He is no longer in significant pain throughout the day. He has been back to his pain management provider, and is taking hydrocodone on an as-needed basis, but reports that he does not need it very often during this visit. He obtained a set of lumbar spine x-rays during this visit which shows stable placement of his surgical construct, very similar to the imaging seen when reviewing fluoroscopy. We discussed the postoperative healing course and I answered all the questions that he had regarding his surgery and expected course postop. No new neurological deficits. The patient ambulates well and rises from a seated position without difficulty. He uses no assistive devices to ambulate. His lateral and posterior incision sites are closed and well healed. I would like to follow up with Roni again 1 year out from surgery. I will order a CT scan to be done 10 months after surgery. Duane Valdovinos MD,PhD [facility] Orders: Orders CT lumbar spine wo IV con Today Z98.1 - Arthrodesis status XR lumbar spine 4V min Today Z98.1 - Arthrodesis status Coding Level of Care Code Global (27883) Diagnoses S/P lumbar fusion Z98.1
--- OUTSIDE RECORDS SUMMARY | 2025-03-21 15:47 | XMS_ITS | Clinical Summary ---
Author Organization LL [address] [facility] Address [address] [place] [address] Phone Care Team Providers Care Climbing Guide Name Role Phone Gregg Todd MD Primary Care Provider [phone] Allergies No known active allergies Medications bictegravir-emtr icitabine-tenofo vir alafenamide (Biktarvy) 50-200-25 mg [...] (LIDODERM) 5 % patch 02/06/20 22 Active tiZANidine (ZANAFLEX) 4 mg tablet TAKE [...] 3 each 3 07/01/19 25 026 Active albuterol HFA (PROAIR HFA ; PROVENTIL HFA ; VENTOLIN HFA) 90 mcg/actuation inhalerIndicatio ns:Chronic bronchitis, unspecified chronic bronchitis type (CMS/HCC V24, CMS/HCC V28) Inhale 2 puffs by mouth every 6 (six) hours if needed for wheezing. 1 each 08/30/19 25 026 Active simvastatin (ZOCOR) 20 mg tablet Take [...] DIZZINESS. 90 tablet 1 02/17/20 25 Active aspirin 81 mg chewable tablet Chew 1 tablet (81 mg total) 1 (one) time each day. Active mupirocin (BACTROBAN) 2 % ointment APPLY SPARINGLY TO AFFECTED AREA(S) 3 TIMES A DAY 05/23/20 11 025 Discontin ued(Oniel hughes completed ) Active Problems Problem Noted Date Diagnosed Date [...] the kidneys. He states he understands. Sacroiliitis ([facility] V24) 02/07/2022 Overview (04/25/2024): Last Assessment & Plan: Mr. Willson is being followed at [facility] by Dr. Carreno where he [...] Encounters Date Type Department Care Team Description 03/06/2025 Telephone [facility] [address] [place] [address] Diann Sousa NP 02/10/2025 Telephone Internal Medicine [facility] [address] [facility] [address] [place] [address] Beatrice Riley MA 02/07/2025 Telephone Internal Medicine [facility] 175 [facility] [address] [place] [address] Colon, RANDALL Barron 02/07/2025 Telephone Internal Medicine [facility] [address] [facility] [address] [place] [address] Colon, RANDALL Barron 02/07/2025 Telephone Internal Medicine [facility] [address] [facility] [address] [place] [address] Colon, RANDALL Barron 02/03/2025 Telephone Internal Medicine [facility] [address] [facility] [address] [place] [address] Colon, RANDALL Barron 01/20/2025 Telephone Internal Medicine [facility] [address] [facility] [address] [place] [address] Colon, RANDALL Barron 01/16/2025 1:00 PM EDT Ancillary Procedure [facility] [address] [place] [address] Coronary artery disease due to lipid rich plaque 01/12/2025 2:10 PM EDT Consult [facility] [address] [place] [address] Diann Sousa NP Coronary artery disease due to lipid rich plaque (Primary Dx); Hypercholesterolemia; Preoperative cardiovascular examination; Elevated blood pressure reading 01/11/2025 Telephone Internal Medicine - [place] [address] [place] [address] Gregg Todd MD 01/10/2025 Telephone [facility] [address] [facility] [address] [place] [address] Zuleyka Escobar NP 01/06/2025 Telephone [facility] [address] [place] [address] Gregg Todd MD 01/03/2025 Telephone Internal Medicine - [place] [address] [facility] [address] [place] [address] Gregg Todd MD from Last 3 Months Immunizations Immunization Administration Dates Next Due DTaP (Infanrix) 6wks to less than 7yo 07/29/2012 Hepatitis A Adult (Havrix; V aqta) 19yo and older 08/10/2015 Hepatitis B (Xmvrcpd-I-Cqxtx , Recombivax HB-Adult) 19yo and older 02/20/2017,09/12/2016,08/15/2016 [...] immunodeficiency virus infection) ([facility] V24, [facility] V28) 01/04/2019 DX:HIV (human im munodeficiency virus infection) ([facility]) Hypertension 01/04/2019 DX:Hypertension Spinal stenosis, lumbar [...] immunodeficiency virus infection) ([facility] V24, [facility] V28) DX:HIV (human im munodeficiency virus infection) ([facility]) Hemorrhoid Anemia Family History Medical History [...] for your loved ones. For example, child protective investigator or elderly care for an older adult? [...] Date Recorded What is your living situation? Unrecognized valu e 09/27/2024 Interpersonal Safety Answer Date Record ed Physical Abuse Unrecognized value 12/08/2024 Verbal Abuse Unrecognized value 12/08/2024 Sex and Gender Information Value Date [...] AM EDT Office Visit Internal Medicine - [address] [address] Gregg Todd MD [address] [place] [phone] 05/31/2025 2:15 PM EST Office Visit Pulmonology - [address] [address] Felicia Sparrow MD [address] [place] [address] Health Maintenance Due Date Last Done Comments [...] 60-74 years 1-dose series) 2024 COVID-19 Vaccine (4 - season) 2025 03/24/2023, 10/18/2020, 09/20/2020 Influenza Vaccine (#1) 2025 04/22/2021, 2019 Social Influencers of Health Screening 09/27/2025 09/27/2024 Hypertension/CHF/CAD Annual BMP Blood Test 03/06/2026 03/06/2025, 09/21/2024, 08/23/2024, Additional history exists DTaP,Tdap,and Td Vaccines (3 - Td or Tdap) 10/31/2027 10/30/2017, 07/29/2012 Cholesterol Screening (Lipid Panel) 03/06/2030 03/06/2025, 08/23/2024, 04/27/2024, Additional history exists Colorectal Cancer Screening: Colonoscopy 12/08/2034 12/08/2024, 09/22/2014 [...] Diagnosis Comments CBC WITH AUTO DIFFERENTIAL Routine 03/06/2025 10:08 AM EDT Human immunodeficiency virus (HIV) disease (CMS/HCC V24, CMS/HCC V28) COMPREHENSIVE METABOLIC PANEL Routine 03/06/2025 10:08 AM EDT Current mild episode of major depressive disorder, unspecified whether recurrent (CMS/HCC V24) Hypercholesterolemia Mild intermittent asthma without complication LIPID PANEL WITH REFLEX TO DIRECT LDL Routine 03/06/2025 10:08 AM EDT Current mild episode of major depressive disorder, unspecified whether recurrent (CMS/HCC V24) Hypercholesterolemia Mild intermittent asthma without complication THYROID STIMULATING HORMONE Routine 03/06/2025 10:08 AM EDT Current mild episode of major depressive disorder, unspecified whether recurrent (CMS/HCC V24) Hypercholesterolemia Mild intermittent asthma without complication HIV 1 MOLECULAR STUDY QUANTITATIVE Routine 03/06/2025 10:08 AM EDT Human immunodeficiency virus (HIV) disease (CMS/HCC V24, CMS/HCC V28) TREPONEMA PALLIDUM ANTIBODY WITH REFLEX TO RPR AND PARTICLE AGGLUTINATION Routine 03/06/2025 10:08 AM EDT Human immunodeficiency virus (HIV) disease (CMS/HCC V24, CMS/HCC V28) LYMPHOCYTE T-CELL PANEL Routine 03/06/2025 10:08 AM EDT Human immunodeficiency virus (HIV) disease (CMS/HCC V24, CMS/HCC V28) CBC AND DIFFERENTIAL Routine 03/06/2025 10:08 AM EDT Human immunodeficiency virus (HIV) disease ([facility]/HCC V24, CMS/HCC V28) EXTERNAL XRAY REPORT 01/17/2025 NM LEXISCAN STRESS TEST W/ MYOCARDIAL PERFUSION Routine 01/16/2025 3:53 PM EDT Coronary artery disease due to lipid rich plaque ECG 12-LEAD Routine 01/12/2025 2:06 PM EDT Hypercholesterolemia COLONOSCOPY Routine 12/08/2024 8:58 AM EDT Colon cancer screening HEPATITIS PANEL, ACUTE WITH REFLEX TO CONFIRMATION Routine 08/23/2024 9:33 AM EDT Elevated liver function tests from Last 3 Months or Most Recently Relevant to Health Maintenance Results * Treponema pallidum antibody with reflex to RPR and particle agglutination (03/06/2025 10:08 AM EDT) T. Pallidum Antibodies Negative Negative LAB CHEMISTRY METHOD 03/06/2025 4:30 PM EDT [facility] Blood Venous blood specimen / Unknown Venipuncture / Unknown 03/06/2025 10:08 AM EDT 03/06/2025 10:08 AM EDT us Юлия Angel MD LAB BLOOD ORDERABLES Una l Result [facility] [address] [place] [address], [place] [phone] * (ABNORMAL) Lipid panel with reflex to direct LDL (03/06/2025 10:08 AM EDT) Pathologist [facility] Cholesterol 187 0 - 200 mg/dL LAB CHEMISTRY METHOD 03/06/2025 3:32 PM EDT [facility] Triglycerides 188(H) 0 - 150 mg/dL LAB CHEMISTRY METHOD 03/06/2025 3:32 PM EDT [facility] HDL 53 >=40 mg/dL LAB CHEMISTRY METHOD 03/06/2025 3:32 PM EDT [facility] LDL Calculated 96 0 - 100 mg/dL LAB CHEMISTRY METHOD 03/06/2025 3:32 PM EDT [facility] Comment:Estimated LDL Calcul ated using equation: Total cholesterol - HDL cholesterol - (Triglycerides/5) VLDL Cholesterol Yovany 37.6 mg/dL LAB CHEMISTRY METHOD 03/06/2025 3:32 PM EDT [facility] Non HDL Chol. (LDL+VLDL) 134 <145 mg/dL LAB CHEMISTRY METHOD 03/06/2025 3:32 PM EDT [facility] Chol/HDL Ratio 3.5 0.0 - 4.4 LAB CHEMISTRY METHOD 03/06/2025 3:32 PM EDT [facility] Blood Venous blood specimen / Unknown Venipuncture / Unknown 03/06/2025 10:08 AM EDT 03/06/2025 10:08 AM EDT us Gregg Todd MD LAB BLOOD ORDERABLES Final Resul t [facility] [address] [place] [address], * (ABNORMAL) CBC auto differential (03/06/2025 10:08 AM EDT) WBC 5.8 4.8 - 10.8 K/mcL LAB HEMETOLOGY METHOD 03/06/2025 2:10 PM EDT [facility] RBC 4.60 4.50 - 5.50 M/mcL LAB HEMETOLOGY METHOD 03/06/2025 2:10 PM EDT [facility] Hemoglobin 13.6 13.5 - 17.5 g/dL LAB HEMETOLOGY METHOD 03/06/2025 2:10 PM EDT [facility] Hematocrit 42.6 42.0 - 54.0 % LAB HEMETOLOGY METHOD 03/06/2025 2:10 PM EDT [facility] MCV 93.4 79.0 - 98.0 FL LAB HEMETOLOGY METHOD 03/06/2025 2:10 PM EDT [facility] MCH 29.8 27.0 - 32.0 pcg LAB HEMETOLOGY METHOD 03/06/2025 2:10 PM EDT [facility] MCHC 31.9(L) 32.0 - 37.0 g/dL LAB HEMETOLOGY METHOD 03/06/2025 2:10 PM EDT [facility] RDW 14.1 11.0 - 15.0 % LAB HEMETOLOGY METHOD 03/06/2025 2:10 PM EDT [facility] Platelets 265 130 - 400 K/mcL LAB HEMETOLOGY METHOD 03/06/2025 2:10 PM [facility] MPV 11.2(H) 7.0 - 11.0 FL LAB HEMETOLOGY METHOD 03/06/2025 2:10 PM EDT [facility] NRBC 0.0 <1.0 % LAB HEMETOLOGY METHOD 03/06/2025 2:10 PM T [facility] NRBC Absolute 0.00 <0.10 K/mcL LAB HEMETOLOGY METHOD 03/06/2025 2:10 PM [facility] Neutrophils Relative 57.4 % LAB HEMETOLOGY METHOD 03/06/2025 2:10 PM [facility] Lymphocytes Relative 28.9 % LAB HEMETOLOGY METHOD 03/06/2025 2:10 PM [facility] Monocytes Relative 11.2 % LAB HEMETOLOGY METHOD 03/06/2025 2:10 PM [facility] Eosinophils Relative 1.7 % LAB HEMETOLOGY METHOD 03/06/2025 2:10 PM [facility] Basophils Relative 0.5 % LAB HEMETOLOGY METHOD 03/06/2025 2:10 PM [facility] Immature Granulocytes Relative 0.3 % LAB HEMETOLOGY METHOD 03/06/2025 2:10 PM [facility] Neutrophils Absolute 3.33 1.50 - 7.00 K/mcL LAB HEMETOLOGY METHOD 03/06/2025 2:10 PM [facility] Lymphocytes Absolute 1.68 1.00 - 5.00 K/mcL LAB HEMETOLOGY METHOD 03/06/2025 2:10 PM EDT [facility] Monocytes Absolute 0.65 0.20 - 1.00 K/mcL LAB HEMETOLOGY METHOD 03/06/2025 2:10 PM EDT [facility] Eosinophils Absolute 0.10 0.00 - 0.50 K/mcL LAB HEMETOLOGY METHOD 03/06/2025 2:10 PM EDT [facility] Basophils Absolute 0.03 0.00 - 0.20 K/[facility] LAB HEMETOLOGY METHOD 03/06/2025 2:10 PM EDT [facility] Immature Granulocytes Absolute 0.02 0.00 - 0.03 K/mcL LAB HEMETOLOGY METHOD 03/06/2025 2:10 PM EDT [facility] Blood Venous blood specimen / Unknown Venipuncture / Unknown 03/06/2025 10:08 AM EDT 03/06/2025 10:08 AM EDT us Юлия Angel MD LAB BLOOD ORDERABLES Una tovar Result [facility] [address] [place] [address], * Lymphocyte T-cell panel (03/06/2025 10:08 AM EDT) CD4 680 426 - 1,776 cells/mcL 03/10/2025 9:23 AM EDT [facility] CD8 314 161 - 838 cells/mcL 03/10/2025 9:23 AM EDT [facility] CD4/CD8 Ratio 2.17 0.90 - 4.90 03/10/2025 9:23 AM EDT [facility] CD4 % 48 33 - 64 % 03/10/2025 9:23 AM EDT [facility] CD8 % 22 10 - 39 % 03/10/2025 9:23 AM EDT [facility] Blood Venous blood specimen / Unknown Venipuncture / Unknown 03/06/2025 10:08 AM EDT 03/06/2025 10:08 AM EDT Юлия Angel MD LAB MOLECULAR DIAGNOSTICS ORDERABLES Final Result [facility] [address] [place] [address], [place] [phone] * (ABNORMAL) HIV 1 molecular study quantitative (03/06/2025 10:08 AM EDT) [facility] HIV-1 RNA Interpretation Detected (A) Not Detected LAB MOLECULAR DIAGNOSTICS METHOD 03/07/2025 2:53 PM EDT [facility] HIV-1 RNA Copies <20 <20 copies/mL LAB MOLECULAR DIAGNOSTICS METHOD 03/07/2025 2:53 PM EDT [facility] Comment:HIV RNA detected but below the limit of quantitation. Unable to report quantitative results <20 copies/mL. HIV-1 RNA Log <1.30 <1.30 Log 10 copies/mL LAB MOLECULAR DIAGNOSTICS METHOD 03/07/2025 2:53 PM EDT [facility] Blood Venous blood specimen / Unknown Venipuncture / Unknown 03/06/2025 10:08 AM EDT 03/06/2025 10:08 AM EDT Юлия Angel MD LAB BLOOD ORDERABLES Una l Result [facility] [address] [place] [address], [place] [phone] * Thyroid stimulating hormone (03/06/2025 10:08 AM EDT) [facility] TSH 2.33 0.40 - 4.00 mcIU/mL LAB CHEMISTRY METHOD 03/06/2025 4:19 PM EDT [facility] Blood Venous blood specimen / Unknown Venipuncture / Unknown 03/06/2025 10:08 AM EDT 03/06/2025 10:08 AM EDT Gregg Todd MD LAB BLOOD ORDERABLES Final Resul t [facility] [address] [place] [address], [place] [phone] * (ABNORMAL) Comprehensive metabolic panel (03/06/2025 10:08 AM EDT) Sodium 138 133 - 145 mmol/L LAB CHEMISTRY METHOD 03/06/2025 3:34 PM [facility] Potassium 5.2 3.5 - 5.5 mmol/L LAB CHEMISTRY METHOD 03/06/2025 3:34 PM [facility] Chloride 107 96 - 110 mmol/L LAB CHEMISTRY METHOD 03/06/2025 3:34 PM [facility] CO2 27 21 - 32 mmol/L LAB CHEMISTRY METHOD 03/06/2025 3:34 PM [facility] Anion Gap 4 3 - 11 LAB CHEMISTRY METHOD 03/06/2025 3:34 PM [facility] Glucose 93 70 - 100 mg/dL LAB CHEMISTRY METHOD 03/06/2025 3:34 PM [facility] BUN 19 5 - 25 mg/dL LAB CHEMISTRY METHOD 03/06/2025 3:34 PM [facility] Creatinine 1.08 0.70 - 1.30 mg/dL LAB CHEMISTRY METHOD 03/06/2025 3:34 PM [facility] eGFR 78 >=60 mL/min/1. 73m2 LAB CHEMISTRY METHOD 03/06/2025 3:34 PM [facility] Comment:Calculation based on the Chronic Kidney Disease Epidemiology Collaboration (CKD-EPI) equation refit without adjustment for race. BUN/Creatinine Ratio 17.6 LAB CHEMISTRY METHOD 03/06/2025 3:34 PM EDT [facility] Calcium 9.7 8.5 - 10.5 mg/dL LAB CHEMISTRY METHOD 03/06/2025 3:34 PM EDT [facility] AST (SGOT) 18 10 - 42 unit/L LAB CHEMISTRY METHOD 03/06/2025 3:34 PM EDT [facility] ALT (SGPT) 25 10 - 60 unit/L LAB CHEMISTRY METHOD 03/06/2025 3:34 PM EDT [facility] Alkaline Phosphatase 164(H) 42 - 121 unit/L LAB CHEMISTRY METHOD 03/06/2025 3:34 PM EDT [facility] Total Protein 7.5 6.0 - 8.0 g/dL [facility] Albumin 4.3 3.2 - 5.0 g/dL LAB CHEMISTRY METHOD 03/06/2025 3:34 PM EDT [facility] Total Bilirubin 0.5 0.0 - 1.4 mg/dL LAB CHEMISTRY METHOD 03/06/2025 3:34 PM [facility] Blood Venous blood specimen / Unknown Venipuncture / Unknown 03/06/2025 10:08 AM EDT 03/06/2025 10:08 AM EDT Gregg Todd MD LAB BLOOD ORDERABLES Final Resul t [facility] [address] [place] [address], [place] [phone] * External Xray Report (01/17/2025) Anatomical Region Laterality Modality Radiographic Eleanor ging us Provider [facility] XR PROCEDURES Final Result * NM LEXISCAN STRESS TEST W/ MYOCARDIAL PERFUSION (01/16/2025 3:53 PM EDT) Pathologist [facility] Exercise/injec tion duration (min) 0 CV PACS [...] GEMUSE QTc 391 ms GEMUSE P Wave [place] 44 degrees GEMUSE R [place] 39 degrees GEMUSE T [place] 50 degrees GEMUSE ECG Interpretation Sinus bradycardia Otherwise normal ECG When compared with ECG of 02-DEC-2021 12:45, No significant change was found Confirmed by MD Dashawn, Luis Miguel ([id number]) on 01/12/2025 3:58:34 PM GEMUSE 01/12/2025 2:06 PM EDT 01/12/2025 3:58 PM EDT us Diann Sousa NP ECG ORDERABLES Final Result GEMUSE * COLONOSCOPY Anesthesia - MAC; [facility] ENDOSCOPY (12/08/2024 8:58 AM EDT) Anatomical Region Laterality Modality Other 12/08/2024 8:30 AM EDT Impressions 12/08/2024 8:59 AM EDT - Internal hemorrhoids. - Diverticulosis in the sigmoid colon. - No specimens collected. Recommendation: - Use fiber, for example Citrucel, Fibercon, Konsyl or Metamucil. - Repeat colonoscopy in 10 years for screening purposes. Narrative 12/08/2024 8:59 AM EDT [facility] GI Patient Name: Licha Willson Procedure Date: 12/08/2024 8:30 AM Date of : 1965 Age: 59 Gender: Male Note Status: Finalized Attending MD: Alok Mccormack MD, Procedure Date No Time: 12/08/2024 Procedure: Colonoscopy Indications: Screening for colorectal malignant neoplasm Providers: Alok Mccormack MD Referring MD: lAok Mccormack MD Medicines: Propofol per Anesthesia Complications: [...] or abscess without bleeding CPT copyright 2020 [employer]. All rights reserved. The codes documented in this report are preliminary and upon tobacco sweeper review may be revised to meet current compliance requirements. Alok Mccormack MD 12/08/2024 8:59:00 AM This report has been signed electronically.Alok Mccormack MD Number of Addenda: 0 Note Initiated On: 12/08/2024 8:30 AM Scope In: Scope Out: Endoscopy Department at [facility] - [address] [place] [id number] Procedure Note Alok Mccormack MD - 12/08/2024 [facility] GI Patient Name: Licha Willson Procedure [...] or abscess without bleeding CPT copyright 2020 [employer]. All rights reserved. The codes documented in this report are preliminary and upon tobacco sweeper reviewmay be revised to meet current compliance requirements. Alok Mccormack MD 12/08/2024 8:59:00 AM This report has been signed electronically.Alok Mccormack MD Number of Addenda: 0 Note Initiated On: 12/08/2024 8:30 AM Scope In: Scope Out: Endoscopy Department at [facility] - [address] [place] [id number] IMPRESSION: - Internal hemorrhoids. - Diverticulosis in the sigmoid colon. - No specimens collected. Recommendation: - Use fiber, for example Citrucel, Fibercon, Konsylor Metamucil. - Repeat colonoscopy in 10 years for screening purposes. us Alok Mccormack MD GI~PROCEDURE ORDERABLES Final Re sult * Hepatitis panel, acute with reflex to confirmation (08/23/2024 9:33 AM EDT) Hepatitis B Surface Ag Negative Negative LAB CHEMISTRY METHOD 08/23/2024 12:18 PM EDT [facility] Hepatitis A Antibody IgM Negative Negative LAB CHEMISTRY METHOD 08/23/2024 12:18 PM EDT [facility] Hep B Core IgM Negative Negative LAB CHEMISTRY METHOD 08/23/2024 12:18 PM EDT [facility] Hepatitis C Antibody Negative Negative LAB CHEMISTRY METHOD 08/23/2024 12:18 PM EDT [facility] Blood Venous blood specimen / Unknown Venipuncture / Unknown 08/23/2024 9:33 AM EDT 08/23/2024 10:35 AM EDT us Alok Mccormack MD LAB BLOOD ORDERABLES Final Resul t [facility] [address] [place] [address], from Last 3 Months or Most Recently Relevant to Health Maintenance Insurance [employer] MED[place] Care Teams Climbing Guide Relationship Specialty Start Date End Date Gregg Todd MD [address] [place] [phone] PCP - General Internal Medicine 04/17/21
--- OUTSIDE RECORDS SUMMARY | 2025-03-21 15:47 | XMS_ITS | Clinical Summary ---
Author Organization [facility] Address [address] [place] [address] Care Team Providers Care Procedure Analyst Name Role Phone Gregg Todd MD [...] age to complete this topic Care Teams Procedure Analyst Relationship Specialty Start Date End Date Gregg Todd MD PCP - General Internal Medicine 06/29/23
--- OUTSIDE RECORDS SUMMARY | 2025-03-21 15:48 | XMS_ITS | Data Portability ---
Author Organization RANDALL CARRERA MD [facility], Main Office Address [address] [place] [address] Assessment No assessment recorded. Plan of Treatment Reminders Order Date Submit Date Provider Last Modified By Organization Details Last Modified Time Details Appointments B20 FOLLOW UP 2024 02:00P Bret Metz MD Not available Not available Not available Lab CBC w/ diff 2024 025 [facility], [address] [place] [address], [address], 03/01/2025 12:45:04 HIV-1 RNA, quantita tive, PCR, serum or plasma 2024 025 [facility], [address] [place] [address], 85[address], 03/01/2025 12:45:04 RPR (rapid plasma reagin), serum 2024 025 [facility], [address] [place] [address], 416[address], 03/01/2025 12:45:04 T-cell regulato ry subsets panel, blood 2024 025 [facility], [address] [place] [address], 48[address], 03/01/2025 12:45:04 creatini ne w/ estimate d GFR (eGFR), serum or plasma 2024 025 [facility], [address] [place] [address], [address], 03/01/2025 12:45:04 AST/SGOT (asparta te aminotra nsferase ), serum or plasma [address] [place] [address] Figure 8 Surgical [facility], [address] [place] [address], [address], 03/01/2025 12:45:04 ALT (alanine aminotra nsferase ), serum or plasma [address] [place] [address] Figure 8 Surgical [facility], [address] [place] [address], 158[address], 03/01/2025 12:45:04 CBC w/ diff [address] [place] [address] Figure 8 Surgical [facility], [address] [place] [address], [address], 11/29/2024 10:07:15 HIV-1 RNA, quantita tive, PCR, serum or plasma [address] [place] [address] Figure 8 Surgical [facility], [address] [place] [address], [address]67[address], 11/29/2024 10:07:16 RPR (rapid plasma reagin), serum [address] [place] [address] Figure 8 Surgical [facility], [address] [place] [address], [address], 11/29/2024 10:07:16 T-cell regulato ry subsets panel, blood [address] [place] [address] Figure 8 Surgical [facility], [address] [place] [address], 66[address], 11/29/2024 10:07:16 creatini ne w/ estimate d GFR (eGFR), serum or plasma [address] [place] [address] Figure 8 Surgical [facility], [address] [place] [address], [address], 11/29/2024 10:07:16 AST/SGOT (asparta te aminotra nsferase ), serum or plasma 2024 025 [facility], [address] [facility], [facility] [address], [place], [address], 11/29/2024 10:07:16 ALT (alanine aminotra nsferase ), serum or plasma 2024 025 [facility], [address] [facility], [facility] [address], [place], [address], 11/29/2024 10:07:16 CMP, serum or plasma 2024 025 [facility], [address] [facility], [place] [address], [place], [address], 08/23/2024 12:07:12 lipid panel, serum 2024 025 [facility], [address] [facility], [facility] [address], [place], [address], 09/02/2024 12:33:08 amylase + lipase, serum 2024 025 [facility], [address] [facility], [facility] [address], [address], 09/02/2024 12:33:08 TSH, serum or plasma 2024 025 [facility], [address] [facility], [address], [place], [address], 09/02/2024 12:33:08 HbA1c (hemoglo bin A1c), blood 2024 025 [facility], [address] [facility], [address], [place], [address], 09/02/2024 12:33:08 CBC w/ diff 2024 025 [facility], [address] [facility], [address], [place], [address], 09/02/2024 12:33:07 HIV-1 RNA, quantita tive, PCR, serum or plasma 2024 025 [facility], [address] [facility], [facility] [address], [place], [address], 09/02/2024 12:33:07 RPR (rapid plasma reagin), serum 2024 [facility], [address] [facility], [facility] [address], [place], [address], 09/02/2024 12:33:08 T-cell regulato ry subsets panel, blood 2024 025 [facility], [address] [facility], [facility] [address], [place], [address], 09/02/2024 12:33:08 HBsAg (hepatit is B surface Ag), serum 2024 025 [place] [address] Figure 8 Surgical [facility], [address], [address], 09/02/2024 12:33:08 CBC w/ diff 2023 024 [facility] [address] [facility], [place] [address], [place], [address], 05/20/2024 13:41:28 ALT (alanine aminotra nsferase ), serum or plasma 2023 024 [facility], [address] [place] [address], [place], [address], 05/20/2024 13:41:28 AST/SGOT (asparta te aminotra nsferase ), serum or plasma 2023 024 [facility], [address] [facility], [facility] [address], [place], [address], 05/20/2024 13:41:29 CT + NG DNA, PCR, unspecif ied specimen 2023 024 [facility], [address] [facility], [facility] [address], [place], [address], 05/20/2024 13:41:29 creatini ne w/ estimate d GFR (eGFR), serum or plasma 2023 024 [facility], [address], [address], 05/20/2024 13:41:29 hepatiti s C virus Ab, serum 2023 024 [facility], [address], [address], 05/20/2024 13:41:29 HIV-1 RNA, quantita tive, PCR, serum or plasma 2023 024 [place] [address] Figure 8 Surgical [facility], [address] [place] [address], [address], [address], 05/20/2024 13:41:29 RPR (rapid plasma reagin), serum 2023 024 [facility], [address], [address], 05/20/2024 13:41:29 T-cell regulato ry subsets panel, blood 2023 024 [place] [address] Figure 8 Surgical [facility], [address] [facility], [address], [address], 05/20/2024 13:41:29 HBsAg (hepatit is B surface Ag), serum 2023 024 [facility], [address], [address], 05/20/2024 13:41:29 Referral None recorded . Procedures None recorded . Surgeries None recorded . Imaging None recorded . Medication Orders mupiroci n 2 % topical ointment 2024 025 [facility]armacy #[id number], [address] [place], [address], 02/22/2025 14:42:30 hydroxyz ine HCl 50 mg tablet 2024 025 [facility]/Pharmacy #0969, [address] [facility] [place], [address], 02/22/2025 14:42:01 Biktarvy 50 mg-200 mg-25 mg tablet 2024 025 [facility]armacy #0969, [address] [facility] [place], [address], 02/22/2025 14:42:01 Biktarvy 50 mg-200 mg-25 mg tablet 2024 025 [facility]armacy #0969, [address] [facility] [place], [address], 11/22/2024 14:40:20 Biktarvy 50 mg-200 mg-25 mg tablet 2024 025 [facility]/Pharmacy #0969, [address] [place], [address], 08/22/2024 15:14:58 hydroxyz ine HCl 25 mg tablet 2023 024 [facility]/Pharmacy #0969, [address] [facility] [place], [address], 05/13/2024 15:11:54 Biktarvy 50 mg-200 mg-25 mg tablet 2023 024 [facility]armacy #0969, [address] [place], [address], 05/13/2024 15:09:21 mupiroci n 2 % topical ointment 2023 024 [facility]/Pharmacy #0969, [address] [facility] [place], [address], 05/30/2024 22:28:26 fluconaz ole 100 mg tablet 2023 024 [facility]/Pharmacy #0969, [address] [facility] [place], [address], 02/10/2024 16:57:59 hydroxyz ine HCl 25 mg tablet 2023 024 [facility]/Pharmacy #0969, [address] [place], [address], 02/10/2024 16:57:59 Biktarvy 50 mg-200 mg-25 mg tablet 2023 024 [facility] [address] [place], [address], 02/10/2024 16:57:57 mupiroci n 2 % topical ointment 2023 024 [facility] [address] [place], [address], 02/10/2024 16:57:59 Patient TargetsNo targets recorded. Patient InstructionsNo instructions recorded. Reason for Referral None Reported. Results Created Date Observation Date Name Description Value Unit Range Abnormal Flag Note LastModifiedBy Organization Detail LastModifiedTime 02/02/20 24 02/02/2024 CBC WITH AUTO DIFF WBC 6.4 x10-3 /uL 4.8-10 .8 Not Available [facility] [address] [place], [address], 02/02/2024 20:32:01 02/02/20 24 02/02/2024 CBC WITH AUTO DIFF RBC 4.3 x10-6 /uL 4.5-5. 5 low Not Available [facility] [address] [place], [address], 02/02/2024 20:32:01 02/02/20 24 02/02/2024 CBC WITH AUTO DIFF hemoglobin 13.3 g/dL 13.5-1 7.5 low Not Available [facility] [address] [place], [address], 02/02/2024 20:32:01 02/02/20 24 02/02/2024 CBC WITH AUTO DIFF hematocrit 40.9 % 42-54 low Not Available [facility] [address] [place], [address], 02/02/2024 20:32:01 02/02/20 24 02/02/2024 CBC WITH AUTO DIFF MCV 94.2 fL 79-98 Not Available [facility] [address] [place], [address], 02/02/2024 20:32:01 02/02/20 24 02/02/2024 CBC WITH AUTO DIFF MCH 30.6 pg 27-32 Not Available [facility] [address] [place], [address], 02/02/2024 20:32:01 02/02/20 24 02/02/2024 CBC WITH AUTO DIFF MCHC 32.5 g/dL 32-37 Not Available [facility] [address] [place], [address], 02/02/2024 20:32:01 02/02/20 24 02/02/2024 CBC WITH AUTO DIFF RDW 13.4 % 11-15 Not Available [facility] [address] [place], [address], 02/02/2024 20:32:01 02/02/20 24 02/02/2024 CBC WITH AUTO DIFF plt count 212 x10-3 /uL 130-40 0 Not Available [facility] [address] [place], [address], 02/02/2024 20:32:01 02/02/20 24 02/02/2024 CBC WITH AUTO DIFF mean platelet volume 11.8 fL 7-11 high Not Available [facility] [address] [place], [address], 02/02/2024 20:32:01 02/02/20 24 02/02/2024 CBC WITH AUTO DIFF NRBC % auto 0.0 % <1 Not Available [facility] [address] [place], [address], 02/02/2024 20:32:01 02/02/20 24 02/02/2024 CBC WITH AUTO DIFF neut % 60.4 % Not Available [facility] [address] [place], [address], 02/02/2024 20:32:01 02/02/20 24 02/02/2024 CBC WITH AUTO DIFF lymph % 23.4 % Not Available [facility] [address] [place], [address], 02/02/2024 20:32:01 02/02/20 24 02/02/2024 CBC WITH AUTO DIFF mono % 9.0 % Not Available [facility] [address] [place], [address], 02/02/2024 20:32:01 02/02/20 24 02/02/2024 CBC WITH AUTO DIFF eos % 6.2 % Not Available [facility] [address] [place], [address], 02/02/2024 20:32:01 02/02/20 24 02/02/2024 CBC WITH AUTO DIFF baso % 0.5 % Not Available [facility] [address] [place], [address], 02/02/2024 20:32:01 02/02/20 24 02/02/2024 CBC WITH AUTO DIFF immature granulocytes % 0.5 % Not Available [facility] [address] [place], [address], 02/02/2024 20:32:01 02/02/20 24 02/02/2024 CBC WITH AUTO DIFF NRBC # auto 0.00 x10-3 /uL <0.1 Not Available [facility] [address] [place], [address], 02/02/2024 20:32:01 02/02/20 24 02/02/2024 CBC WITH AUTO DIFF absolute neut 3.89 x10-3 /uL 1.5-7. 0 Not Available [facility] [address] [place], [address], 02/02/2024 20:32:01 02/02/20 24 02/02/2024 CBC WITH AUTO DIFF lymph # 1.51 x10-3 /uL 1-5.0 Not Available [facility] [address] [place], [address], 02/02/2024 20:32:01 02/02/20 24 02/02/2024 CBC WITH AUTO DIFF mono # 0.58 x10-3 /uL 0.2-1. 0 Not Available [facility] [address] [place], [address], 02/02/2024 20:32:01 02/02/20 24 02/02/2024 CBC WITH AUTO DIFF eos # 0.40 x10-3 /uL 0-0.5 Not Available [facility] [address] [place], [address], 02/02/2024 20:32:01 02/02/20 24 02/02/2024 CBC WITH AUTO DIFF baso # 0.03 x10-3 /uL 0-0.2 Not Available [facility] [address] [place] [address], [address], 02/02/2024 20:32:01 02/02/20 24 02/02/2024 CBC WITH AUTO DIFF immature granulocytes # 0.03 x10-3 /uL 0-0.03 Not Available [facility] [address] [place], [address], 02/02/2024 20:32:01 02/02/20 24 02/02/2024 CBC WITH AUTO DIFF performing lab Per[facility] [address] [place] [address] Medic al Dire marci john MD Not Available [facility] [address] [place], [address], 02/02/2024 20:32:01 02/02/20 24 02/02/2024 CREAT ININE WITH GFR creat 1.24 mg/dL 0.7-1. 3 Not Available [facility] [address] [place], [address], 02/02/2024 20:35:05 02/02/20 24 02/02/2024 CREAT ININE WITH GFR glomerular filtration rate 67 >60 This eGFR resul t was calcu lated using the CKD-E PI 2020 Creat inine Equat ion Not Available [facility] [address] [place], [address], 02/02/2024 20:35:05 02/02/20 24 02/02/2024 SGOT SGOT 21 U/L 10-42 Not Available [facility] [address] [place], [address], 02/02/2024 20:35:05 02/02/20 24 02/02/2024 SGPT SGPT 34 U/L 10-60 Not Available [facility] [address] [place], [address], 02/02/2024 20:35:06 02/02/20 24 02/02/2024 SGPT performing lab [facility], a [facility] of [facility] Of [address] [place] [address] Medic al Altaf john MD Not Available [facility] [address] [place], [address], 02/02/2024 20:35:06 02/02/20 24 02/02/2024 TREPO NEMAL AB treponemal Ab NEGATI VE negati ve Not Available [facility] [address] [place], [address], 02/02/2024 20:58:05 02/02/20 24 02/02/2024 TREPO NEMAL AB performing lab Per[facility], a membe r of [facility] [address] [place] [address] Medic al Altaf john MD Not Available [facility] [address] [place] [address], [address], 02/02/2024 20:58:05 02/02/20 24 02/02/2024 HEPAT ITIS C VIRUS SCREE N hepatitis C virus screen NEGATI VE negati ve Not Available [facility] [address] [place], [address], 02/02/2024 21:27:12 02/02/20 24 02/02/2024 HEPAT ITIS C VIRUS SCREE N performing lab [facility], [facility] [address] [place] [address] Medic al Direc marci john MD Not Available [facility] [address] [place], [address], 02/02/2024 21:27:12 02/02/20 24 02/03/2024 HIV VIRAL LOAD HIV viral load qual DETECT ED not detect . abnormal HIV RNA detec karen, but <20 copie s/mL Not Available [facility] [address] [place] [address], [address], 02/03/2024 09:56:36 02/02/20 24 02/03/2024 HIV VIRAL LOAD HIV viral load quant < 20 <20 Not Available [facility] [address] [place] [address], [address], 02/03/2024 09:56:36 02/02/20 24 02/03/2024 HIV VIRAL LOAD HIV viral load log < 1.30 <1.30 Not Available [facility] [address] [place] [address], [address], 02/03/2024 09:56:36 02/02/20 24 02/03/2024 HIV VIRAL LOAD performing lab Perfor toni Lab abnormal [facility], [facility] [place] [facility] [address] [place] [address] Medic al Direc marci john MD Not Available [facility] [address] [place] [address], [address], 02/03/2024 09:56:36 02/02/20 24 02/03/2024 CHLAM YDIA DNA URINE chlamydia DNA urine NEGATI VE negati ve Not Available [facility] [address] [place] [address], [address], 02/03/2024 10:18:37 02/02/20 24 02/03/2024 GC DNA URINE GC DNA urine NEGATI VE negati ve Not Available [facility] [address], [address], 02/03/2024 10:18:38 02/02/20 24 02/03/2024 GC DNA URINE performing lab Perfor toni [facility], a [facility] of [facility] [address] [facility] [place] [address] Medic al Dire marci john MD Not Available [facility] [address] [place] [address], [address], 02/03/2024 10:18:38 02/02/20 24 02/05/2024 T4T8 PANEL percent cd3 72 % 55-86 Not Available [facility] [address] [place] [address], [address], 02/05/2024 13:09:51 02/02/20 24 02/05/2024 T4T8 PANEL absolute cd3 973 cell/ uL 704-21 38 Not Available [facility] [address] [place] [address], [address], 02/05/2024 13:09:51 02/02/20 24 02/05/2024 T4T8 PANEL percent cd8 22 % 9-37 Not Available [facility] [address] [place] [address], [address], 02/05/2024 13:09:51 02/02/20 24 02/05/2024 T4T8 PANEL absolute cd8 297 cell/ uL 190-83 2 Not Available [facility] [address] [place] [address], [address], 02/05/2024 13:09:51 02/02/20 24 02/05/2024 T4T8 PANEL percent cd4 49 % 35-66 Not Available [facility] [address] [place] [address], [address], 02/05/2024 13:09:51 02/02/20 24 02/05/2024 T4T8 PANEL absolute cd4 657 cell/ uL 443-14 71 Not Available [facility] [address] [place], [address], 02/05/2024 13:09:51 02/02/20 24 02/05/2024 T4T8 PANEL percent cd19 17 % 4-25 Not Available [facility] [address] [place], [address], 02/05/2024 13:09:51 02/02/20 24 02/05/2024 T4T8 PANEL absolute cd19 232 cell/ uL 100-52 4 Not Available [facility] [address] [place], [address], 02/05/2024 13:09:51 02/02/20 24 02/05/2024 T4T8 PANEL cd4 cd8 ratio 2.2 1.0-3. 7 Test perfo rmed at [facility] , [address], [place] [address] [phone] Not Available [facility] [address] [place], [address], 02/05/2024 13:09:51 02/02/20 24 02/05/2024 T4T8 PANEL percent cd56 10 % 3-24 Not Available [facility] [address] [place], [address], 02/05/2024 13:09:51 02/02/20 24 02/05/2024 T4T8 PANEL absolute cd56 133 cell/ uL 60-500 Not Available [facility] [address] [place], [address], 02/05/2024 13:09:51 08/24/19 25 08/23/2024 CBC WITH AUTO DIFFE RENTI AL WBC 5.7 K/mcL 4.8-10 .8 Not Available [facility] [address] [place], [address], 08/23/2024 11:08:03 08/24/19 25 08/23/2024 CBC WITH AUTO DIFFE RENTI AL RBC 4.90 M/mcL 4.50-5 .50 Not Available [facility] [address] [place], [address], 08/23/2024 11:08:03 08/24/19 25 08/23/2024 CBC WITH AUTO DIFFE RENTI AL hemoglobin 14.8 g/dL 13.5-1 7.5 Not Available [facility] [address] [place], [address], 08/23/2024 11:08:03 08/24/19 25 08/23/2024 CBC WITH AUTO DIFFE RENTI AL hematocrit 44.7 % 42.0-5 4.0 Not Available [facility] [address] [place], [address], 08/23/2024 11:08:03 08/24/19 25 08/23/2024 CBC WITH AUTO DIFFE RENTI AL MCV 92.2 fL 79.0-9 8.0 Not Available [facility] [address] [place], [address], 08/23/2024 11:08:03 08/24/19 25 08/23/2024 CBC WITH AUTO DIFFE RENTI AL MCH 30.5 pcg 27.0-3 2.0 Not Available [facility] [address] [place], [address], 08/23/2024 11:08:03 08/24/19 25 08/23/2024 CBC WITH AUTO DIFFE RENTI AL MCHC 33.1 g/dL 32.0-3 7.0 Not Available [facility] [address] [place], [address], 08/23/2024 11:08:03 08/24/19 25 08/23/2024 CBC WITH AUTO DIFFE RENTI AL RDW 13.4 % 11.0-1 5.0 Not Available [facility] [address] [place], [address], 08/23/2024 11:08:03 08/24/19 25 08/23/2024 CBC WITH AUTO DIFFE RENTI AL platelets 222 K/mcL 130-40 0 Not Available [facility] [address] [place], [address], 08/23/2024 11:08:03 08/24/19 25 08/23/2024 CBC WITH AUTO DIFFE RENTI AL MPV 10.9 fL 7.0-11 .0 Not Available [facility] [address] [place], [address], 08/23/2024 11:08:03 08/24/19 25 08/23/2024 CBC WITH AUTO DIFFE RENTI AL NRBC 0.0 % <1.0 Not Available [facility] [address] [place], [address], 08/23/2024 11:08:03 08/24/19 25 08/23/2024 CBC WITH AUTO DIFFE RENTI AL NRBC absolute 0.00 K/mcL <0.10 Not Available [facility] [address] [place], [address], 08/23/2024 11:08:03 08/24/19 25 08/23/2024 CBC WITH AUTO DIFFE RENTI AL neutrophils relative 63.0 % Not Available [facility] [address] [place], [address], 08/23/2024 11:08:03 08/24/19 25 08/23/2024 CBC WITH AUTO DIFFE RENTI AL lymphocytes relative 26.1 % Not Available [facility] [address] [place], [address], 08/23/2024 11:08:03 08/24/19 25 08/23/2024 CBC WITH AUTO DIFFE RENTI AL monocytes relative 7.5 % Not Available [facility] [address] [place], [address], 08/23/2024 11:08:03 08/24/19 25 08/23/2024 CBC WITH AUTO DIFFE RENTI AL eosinophils relative 2.4 % Not Available [facility] [address] [place], [address], 08/23/2024 11:08:03 08/24/19 25 08/23/2024 CBC WITH AUTO DIFFE RENTI AL basophils relative 0.5 % Not Available [facility] [address] [place], [address], 08/23/2024 11:08:03 08/24/19 25 08/23/2024 CBC WITH AUTO DIFFE RENTI AL immature granulocytes relative 0.5 % Not Available [facility] [address] [place], [address], 08/23/2024 11:08:03 08/24/19 25 08/23/2024 CBC WITH AUTO DIFFE RENTI AL neutrophils absolute 3.61 K/mcL 1.50-7 .00 Not Available [facility] [address] [place], [address], 08/23/2024 11:08:03 08/24/19 25 08/23/2024 CBC WITH AUTO DIFFE RENTI AL lymphocytes absolute 1.50 K/mcL 1.00-5 .00 Not Available [facility] [address] [place], [address], 08/23/2024 11:08:03 08/24/19 25 08/23/2024 CBC WITH AUTO DIFFE RENTI AL monocytes absolute 0.43 K/mcL 0.20-1 .00 Not Available [facility] [address] [place], [address], 08/23/2024 11:08:03 08/24/19 25 08/23/2024 CBC WITH AUTO DIFFE RENTI AL eosinophils absolute 0.14 K/mcL 0.00-0 .50 Not Available [facility] [address] [place], [address], 08/23/2024 11:08:03 08/24/19 25 08/23/2024 CBC WITH AUTO DIFFE RENTI AL basophils absolute 0.03 K/mcL 0.00-0 .20 Not Available [facility] [address] [place], [address], 08/23/2024 11:08:03 08/24/19 25 08/23/2024 CBC WITH AUTO DIFFE RENTI AL immature granulocytes absolute 0.03 K/mcL 0.00-0 .03 Not Available [facility] [address] [place], [address], 08/23/2024 11:08:03 08/24/19 25 08/23/2024 CBC WITH AUTO DIFFE RENTI AL note See Report [facility], [address] [facility], [place], [place] [id number] Not Available [facility] [address] [place], [address], 08/23/2024 11:08:03 08/24/19 25 08/23/2024 AMYLA SE amylase 211 unit/ L 25-115 high Not Available [facility] [address] [place], [address], 08/23/2024 11:25:05 08/24/19 25 08/23/2024 AMYLA SE note See Report high [facility], [address] [facility], [place], [place] [address] Not Available [facility] [address] [place], [address], 08/23/2024 11:25:05 08/24/19 25 08/23/2024 LIPID PANEL WITH REFLE X TO DIREC T LDL cholesterol 210 mg/dL 0-200 high Not Available [facility] [address] [place], [address], 08/23/2024 11:26:05 08/24/19 25 08/23/2024 LIPID PANEL WITH REFLE X TO DIREC T LDL triglyceride s 154 mg/dL 0-150 high Not Available [facility] [address] [place], [address], 08/23/2024 11:26:05 08/24/19 25 08/23/2024 LIPID PANEL WITH REFLE X TO DIREC T LDL HDL 58 mg/dL >=40 Not Available [facility] [address] [place], [address], 08/23/2024 11:26:05 08/24/19 25 08/23/2024 LIPID PANEL WITH REFLE X TO DIREC T LDL LDL calculated 121 mg/dL 0-100 high Not Available [facility] [address] [place], [address], 08/23/2024 11:26:05 08/24/19 25 08/23/2024 LIPID PANEL WITH REFLE X TO DIREC T LDL VLDL cholesterol aj 30.8 mg/dL Not Available [facility] [address] [place], [address], 08/23/2024 11:26:05 08/24/19 25 08/23/2024 LIPID PANEL WITH REFLE X TO DIREC T LDL non HDL chol. (LDL+VLDL) 152 mg/dL <145 high Not Available [facility] [address] [place], [address], 08/23/2024 11:26:05 08/24/19 25 08/23/2024 LIPID PANEL WITH REFLE X TO DIREC T LDL chol/HDL ratio 3.6 0.0-4. 4 Not Available [facility] [address] [place], [address], 08/23/2024 11:26:05 08/24/19 25 08/23/2024 LIPID PANEL WITH REFLE X TO DIREC T LDL note See Report [facility], [address] [facility], [place], [facility] [place] [id number] Not Available [facility] [address] [place], [address], 08/23/2024 11:26:05 08/24/19 25 08/23/2024 THYRO ID STIMU LATIN G HORMO NE TSH 2.20 mciu/ mL 0.40-4 .00 Not Available [facility] [address] [place], [address], 08/23/2024 11:39:03 08/24/19 25 08/23/2024 THYRO ID STIMU LATIN G HORMO NE note See Report [facility] [address] [facility], [facility] [place] [id number] Not Available [facility] [address] [place], [address], 08/23/2024 11:39:03 08/24/19 25 08/23/2024 LIPAS E lipase 411 unit/ L 13-75 high Not Available [facility] [address] [place] [address], [address], 08/23/2024 11:45:04 08/24/19 25 08/23/2024 LIPAS E note See Report high [facility], [address] [facility], [facility], [facility] [place] [id number] Not Available [facility] [address] [place], [address], 08/23/2024 11:45:04 08/24/19 25 08/23/2024 HEPAT ITIS B SURFA CE ANTIG EN WITH REFLE X TO CONFI RMATI ON hepatitis B surface Ag Negati ve negati ve Not Available [facility] [address] [place] [address], [address], 08/23/2024 11:50:07 08/24/19 25 08/23/2024 HEPAT ITIS B SURFA CE ANTIG EN WITH REFLE X TO CONFI RMATI ON note See Report [facility], [address] [facility], [facility] [facility], [facility] [place] [id number] Not Available [facility] [address] [place], [address], 08/23/2024 11:50:07 08/24/19 25 08/23/2024 TREPO NEMA PALLI DUM ANTIB BRENDAN WITH REFLE X TO RPR AND PARTI KENA AGGLU TINAT ION T. pallidum antibodies Negati ve negati ve Not Available [facility] [address] [place], [address], 08/23/2024 11:52:07 08/24/19 25 08/23/2024 TREPO NEMA PALLI DUM ANTIB BRENDAN WITH REFLE X TO RPR AND PARTI KENA AGGLU TINAT ION note See Report [facility], [address] [facility], [facility], [facility] [place] [id number] Not Available [facility] [address] [place], [address], 08/23/2024 11:52:07 08/24/1908/23/2024 COMPR EHENS SANDY METAB OLIC PANEL sodium 139 mmol/ L 133-14 5 Not Available [facility] [address] [place], [address], 08/23/2024 12:07:12 08/24/1908/23/2024 COMPR EHENS SANDY METAB OLIC PANEL potassium 4.9 mmol/ L 3.5-5. 5 Not Available [facility] [address] [place], [address], 08/23/2024 12:07:12 08/24/1908/23/2024 COMPR EHENS SANDY METAB OLIC PANEL chloride 106 mmol/ L 96-110 Not Available [facility] [address] [place], [address], 08/23/2024 12:07:12 08/24/1908/23/2024 COMPR EHENS SANDY METAB OLIC PANEL CO2 29 mmol/ L 21-32 Not Available [facility] [address] [place], [address], 08/23/2024 12:07:12 08/24/1908/23/2024 COMPR EHENS SANDY METAB OLIC PANEL anion gap 4 3-11 Not Available [facility] [address] [place], [address], 08/23/2024 12:07:12 08/24/1908/23/2024 COMPR EHENS SANDY METAB OLIC PANEL glucose 92 mg/dL 70-100 Not Available [facility] [address] [place], [address], 08/23/2024 12:07:12 08/24/1908/23/2024 COMPR EHENS SANDY METAB OLIC PANEL BUN 20 mg/dL 5-25 Not Available [facility] [address] [place], [address], 08/23/2024 12:07:12 08/24/19 08/23/2024 COMPR EHENS SANDY METAB OLIC PANEL creatinine 1.19 mg/dL 0.70-1 .30 Not Available [facility] [address] [place], [address], 08/23/2024 12:07:12 08/24/19 25 08/23/2024 COMPR EHENS SANDY METAB OLIC PANEL eGFR 70 mL/mi n/1.7 3m2 >=60 Calcu latio n based on the Chron ic Kidne y Disea se Epide miolo gy Colla borat ion (CKD- EPI) equat ion refit witho ut adjus tment for race. Not Available [facility] [address] [place], [address], 08/23/2024 12:07:12 08/24/19 25 08/23/2024 COMPR EHENS SANDY METAB OLIC PANEL BUN/creatini ne ratio 16.8 Not Available [facility] [address] [place], [address], 08/23/2024 12:07:12 08/24/19 25 08/23/2024 COMPR EHENS SANDY METAB OLIC PANEL calcium 9.2 mg/dL 8.5-10 .5 Not Available [facility] [address] [place], [address], 08/23/2024 12:07:12 08/24/19 25 08/23/2024 COMPR EHENS SANDY METAB OLIC PANEL AST (SGOT) 13 unit/ L 10-42 Not Available [facility] [address] [place], [address], 08/23/2024 12:07:12 08/24/19 25 08/23/2024 COMPR EHENS SANDY METAB OLIC PANEL ALT (SGPT) 46 unit/ L 10-60 Not Available [facility] [address] [place], [address], 08/23/2024 12:07:12 08/24/19 25 08/23/2024 COMPR EHENS SANDY METAB OLIC PANEL alkaline phosphatase 96 unit/ L 42-121 Not Available [facility] [address] [facility] [address], [place], [address], 08/23/2024 12:07:12 08/24/19 25 08/23/2024 COMPR EHENS SANDY METAB OLIC PANEL total protein 7.0 g/dL 6.0-8. 0 Not Available [facility] [address] [place] [address], [address], 08/23/2024 12:07:12 08/24/19 25 08/23/2024 COMPR EHENS SANDY METAB OLIC PANEL albumin 3.8 g/dL 3.2-5. 0 Not Available [facility] [address] [place] [address], [address], 08/23/2024 12:07:12 08/24/19 25 08/23/2024 COMPR EHENS SANDY METAB OLIC PANEL total bilirubin 0.7 mg/dL 0.0-1. 4 Not Available [facility] [address] [place] [address], [address], 08/23/2024 12:07:12 08/24/19 25 08/23/2024 COMPR EHENS SANDY METAB OLIC PANEL note See Report [facility], [address] [place] [address], [facility] [facility], [place] [id number] Not Available [facility] [address] [place] [address], [address], 08/23/2024 12:07:12 08/24/19 25 08/23/2024 HIV 1 MOLEC ULAR STUDY QUANT ITATI VE HIV-1 RNA interpretati on Detect ed not detect ed abnormal Not Available [facility] [address] [place] [address], [address], 08/23/2024 15:03:28 08/24/19 25 08/23/2024 HIV 1 MOLEC ULAR STUDY QUANT ITATI VE HIV-1 RNA copies < copie s/mL <20 HIV RNA detec karen but below the limit of quant itati on. Unabl e to repor t quant itati ve resul ts <20 copie s/mL. Not Available [facility] [address] [place] [address], [address], 08/23/2024 15:03:28 08/24/19 25 08/23/2024 HIV 1 MOLEC ULAR STUDY QUANT ITATI VE HIV-1 RNA log < log_1 0_cop ies/m L <1.30 Not Available [facility] [address] [place] [address], [address], 08/23/2024 15:03:28 08/24/19 25 08/23/2024 HIV 1 MOLEC ULAR STUDY QUANT ITATI VE note See Report [facility], [address] [facility], [place]ira josu[address], [place] [id number] Not Available [facility] [address] [place] [address], [address], 08/23/2024 15:03:28 08/24/19 25 08/23/2024 LYMPH OCYTE T-KATIA L PANEL cd4 671 cells /mcL 426-17 76 Not Available [facility] [address] [place] [address], [address], 08/25/2024 07:04:36 08/24/19 25 08/23/2024 LYMPH OCYTE T-KATIA L PANEL cd8 300 cells /mcL 161-83 8 Not Available [facility] [address] [place] [address], [address], 08/25/2024 07:04:36 08/24/19 25 08/23/2024 LYMPH OCYTE T-KATIA L PANEL cd4/cd8 ratio 2.24 0.90-4 .90 Not Available [facility] [address] [place] [address], [address], 08/25/2024 07:04:36 08/24/19 25 08/23/2024 LYMPH OCYTE T-KATIA L PANEL cd4 % 45 % 33-64 Not Available [facility] [address] [place] [address], [address], 08/25/2024 07:04:36 08/24/19 25 08/23/2024 LYMPH OCYTE T-KATIA L PANEL cd8 % 20 % 10-39 Not Available [facility] [address] [place] [address], [address], 08/25/2024 07:04:36 08/24/19 25 08/23/2024 LYMPH OCYTE T-KATIA L PANEL note See Report [facility], [address] [facility], [facility], [place] [id number] Not Available [facility] [address] [place], [address], 08/25/2024 07:04:36 03/06/20 25 03/06/2025 CBC WITH AUTO DIFFE RENTI AL WBC 5.8 K/mcL 4.8-10 .8 Not Available [facility] [address] [place] [address], [address], 03/06/2025 14:11:26 03/06/20 25 03/06/2025 CBC WITH AUTO DIFFE RENTI AL RBC 4.60 M/mcL 4.50-5 .50 Not Available [facility] [address] [place] [address], [address], 03/06/2025 14:11:26 03/06/20 25 03/06/2025 CBC WITH AUTO DIFFE RENTI AL hemoglobin 13.6 g/dL 13.5-1 7.5 Not Available [facility] [address] [place] [address], [address], 03/06/2025 14:11:26 03/06/20 25 03/06/2025 CBC WITH AUTO DIFFE RENTI AL hematocrit 42.6 % 42.0-5 4.0 Not Available [facility] [address] [place], [address], 03/06/2025 14:11:26 03/06/20 25 03/06/2025 CBC WITH AUTO DIFFE RENTI AL MCV 93.4 fL 79.0-9 8.0 Not Available [facility] [address] [place] [address], [address], 03/06/2025 14:11:26 03/06/20 25 03/06/2025 CBC WITH AUTO DIFFE RENTI AL MCH 29.8 pcg 27.0-3 2.0 Not Available [facility] [address] [place], [address], 03/06/2025 14:11:26 03/06/20 25 03/06/2025 CBC WITH AUTO DIFFE RENTI AL MCHC 31.9 g/dL 32.0-3 7.0 low Not Available [facility] [address] [place], [address], 03/06/2025 14:11:26 03/06/20 25 03/06/2025 CBC WITH AUTO DIFFE RENTI AL RDW 14.1 % 11.0-1 5.0 Not Available [facility] [address] [place], [address], 03/06/2025 14:11:26 03/06/20 25 03/06/2025 CBC WITH AUTO DIFFE RENTI AL platelets 265 K/mcL 130-40 0 Not Available [facility] [address] [place], [address], 03/06/2025 14:11:26 03/06/20 25 03/06/2025 CBC WITH AUTO DIFFE RENTI AL MPV 11.2 fL 7.0-11 .0 high Not Available [facility] [address] [place], [address], 03/06/2025 14:11:26 03/06/20 25 03/06/2025 CBC WITH AUTO DIFFE RENTI AL NRBC 0.0 % <1.0 Not Available [facility] [address] [place], [address], 03/06/2025 14:11:26 03/06/20 25 03/06/2025 CBC WITH AUTO DIFFE RENTI AL NRBC absolute 0.00 K/mcL <0.10 Not Available [facility] [address] [place], [address], 03/06/2025 14:11:26 03/06/20 25 03/06/2025 CBC WITH AUTO DIFFE RENTI AL neutrophils relative 57.4 % Not Available [facility] [address] [place], [address], 03/06/2025 14:11:26 03/06/20 25 03/06/2025 CBC WITH AUTO DIFFE RENTI AL lymphocytes relative 28.9 % Not Available [facility] [address] [place], [address], 03/06/2025 14:11:26 03/06/20 25 03/06/2025 CBC WITH AUTO DIFFE RENTI AL monocytes relative 11.2 % Not Available [facility] [address] [place], [address], 03/06/2025 14:11:26 03/06/20 25 03/06/2025 CBC WITH AUTO DIFFE RENTI AL eosinophils relative 1.7 % Not Available [facility] [address] [place], [address], 03/06/2025 14:11:26 03/06/20 25 03/06/2025 CBC WITH AUTO DIFFE RENTI AL basophils relative 0.5 % Not Available [facility] [address] [place], [address], 03/06/2025 14:11:26 03/06/20 25 03/06/2025 CBC WITH AUTO DIFFE RENTI AL immature granulocytes relative 0.3 % Not Available [facility] [address] [place], [address], 03/06/2025 14:11:26 03/06/20 25 03/06/2025 CBC WITH AUTO DIFFE RENTI AL neutrophils absolute 3.33 K/mcL 1.50-7 .00 Not Available [facility] [address] [place], [address], 03/06/2025 14:11:26 03/06/20 25 03/06/2025 CBC WITH AUTO DIFFE RENTI AL lymphocytes absolute 1.68 K/mcL 1.00-5 .00 Not Available [facility] [address] [place], [address], 03/06/2025 14:11:26 03/06/20 25 03/06/2025 CBC WITH AUTO DIFFE RENTI AL monocytes absolute 0.65 K/mcL 0.20-1 .00 Not Available [facility] [address] [place], [address], 03/06/2025 14:11:26 03/06/20 25 03/06/2025 CBC WITH AUTO DIFFE RENTI AL eosinophils absolute 0.10 K/mcL 0.00-0 .50 Not Available [facility] [address] [place] [address], [address], 03/06/2025 14:11:26 03/06/20 25 03/06/2025 CBC WITH AUTO DIFFE RENTI AL basophils absolute 0.03 K/mcL 0.00-0 .20 Not Available [facility] [address] [place], [address], 03/06/2025 14:11:26 03/06/20 25 03/06/2025 CBC WITH AUTO DIFFE RENTI AL immature granulocytes absolute 0.02 K/mcL 0.00-0 .03 Not Available [facility] [address] [place] [address], [address], 03/06/2025 14:11:26 03/06/20 25 03/06/2025 CBC WITH AUTO DIFFE RENTI AL note See Report [facility], [address] [facility], [facility]ira [place]wood, [facility] [place] [id number] Not Available [facility] [address] [place] [address], [address], 03/06/2025 14:11:26 03/06/20 25 03/06/2025 TREPO NEMA PALLI DUM ANTIB BRENDAN WITH REFLE X TO RPR AND PARTI KENA AGGLU TINAT ION T. pallidum antibodies Negati ve negati ve Not Available [facility] [address] [place], [address], 03/06/2025 16:31:24 03/06/20 25 03/06/2025 TREPO NEMA PALLI DUM ANTIB BRENDAN WITH REFLE X TO RPR AND PARTI KENA AGGLU TINAT ION note See Report [facility], [address] [facility], [place] [address], [place] [address] Not Available [facility] [address] [place], [address], 03/06/2025 16:31:24 03/06/20 25 03/06/2025 HIV 1 MOLEC ULAR STUDY QUANT ITATI VE HIV-1 RNA interpretati on Detect ed not detect ed abnormal Not Available [facility] [address] [place] [address], [address], 03/07/2025 14:56:10 03/06/20 25 03/06/2025 HIV 1 MOLEC ULAR STUDY QUANT ITATI VE HIV-1 RNA copies < copie s/mL <20 HIV RNA detec karen but below the limit of quant itati on. Unabl e to repor t quant itati ve resul ts <20 copie s/mL. Not Available [facility] [address] [place] [address], [address], 03/07/2025 14:56:10 03/06/20 25 03/06/2025 HIV 1 MOLEC ULAR STUDY QUANT ITATI VE HIV-1 RNA log < log_1 0_cop ies/m L <1.30 Not Available [facility] [address] [place] [address], [address], 03/07/2025 14:56:10 03/06/20 25 03/06/2025 HIV 1 MOLEC ULAR STUDY QUANT ITATI VE note See Report [facility], [address] [facility], [address], [place] [address] Not Available [facility] [address] [place] [address], [address], 03/07/2025 14:56:10 03/06/20 25 03/06/2025 LYMPH OCYTE T-KATIA L PANEL cd4 680 cells /mcL 426-17 76 Not Available [facility] [address] [place] [address], [address], 03/10/2025 09:24:47 03/06/20 25 03/06/2025 LYMPH OCYTE T-KATIA L PANEL cd8 314 cells /mcL 161-83 8 Not Available [facility] [address] [place] [address], [address], 03/10/2025 09:24:47 03/06/20 25 03/06/2025 LYMPH OCYTE T-KATIA L PANEL cd4/cd8 ratio 2.17 0.90-4 .90 Not Available [facility] [address] [place] [address], [address], 03/10/2025 09:24:47 03/06/20 25 03/06/2025 LYMPH OCYTE T-KATIA L PANEL cd4 % 48 % 33-64 Not Available [facility] [address] [place] [address], [address], 03/10/2025 09:24:47 03/06/20 25 03/06/2025 LYMPH OCYTE T-KATIA L PANEL cd8 % 22 % 10-39 Not Available [facility] [address] [place] [address], [address], 03/10/2025 09:24:47 03/06/20 25 03/06/2025 LYMPH OCYTE T-KATIA L PANEL note See Report [facility], [address] [place] [address], [address], [place] [address] Not Available [facility] [address] [place] [address], [address], 03/10/2025 09:24:47 Result Notes None recorded. Problems Name Problem SNOMED Code Status Onset Date Resolution Date Notes Provider Name and Address Organization Details Recorded Time Dizziness and giddiness 349408024 Active 2003 Dizziness and giddiness; snomeddesc ription: Vertigo; Report Immunity to Registry: Yes; Notes: vertigo; Not Available [facility] 4 06:58:27 Vertigo 524880999 Active 2003 Vertigo; snomeddesc ription: Vertigo; Report Immunity to Registry: Yes; Notes: vertigo; Not Available [facility] 4 06:58:30 Primary malignant neoplasm of skin 87147573 Active 2004 Unspecifie d malignant neoplasm of skin, unspecifie d; snomeddesc ription: Malignant neoplasm of skin; Report Immunity to Registry: Yes; Notes: basal cell forearm; removed surgical; not active; Remote; Not Available [facility] 4 06:58:26 Insomnia 384062297 Active 2004 Insomnia; Report Immunity to Registry: Yes; Not Available [facility] 4 06:58:27 Depressiv e disorder 07753888 Active 2004 Other specified depressive episodes; snomeddesc ription: Symptoms of depression ; Report Immunity to Registry: Yes; Notes: derpession /anxiety/i nsomnia hx; Not Available [facility] 4 06:58:29 Symptoms of depressio n 431559773 Active 2004 Symptoms of depression ; snomeddesc ription: Symptoms of depression ; Report Immunity to Registry: Yes; Notes: derpession /anxiety/i nsomnia hx; Not Available [facility] 4 06:58:29 Anxiety 69296967 Active 2004 Anxiety; snomeddesc ription: Anxiety; Report Immunity to Registry: Yes; Notes: panic disorder (chest pain/palpi tations)/d epression; Not Available [facility] 4 06:58:31 Malignant neoplasm of skin 667466827 Active 2004 Malignant neoplasm of skin; snomeddesc ription: Malignant neoplasm of skin; Report Immunity to Registry: Yes; Notes: basal cell forearm; removed surgical; not active; Remote; Not Available [facility] 4 06:58:31 Anxiety disorder 487401149 Active 2004 Anxiety disorder, unspecifie d; snomeddesc ription: Anxiety; Report Immunity to Registry: Yes; Notes: panic disorder (chest pain/palpi tations)/d epression; Not Available [facility] 4 06:58:32 Vitamin D deficienc y 45321674 Active 2009 Vitamin D deficiency ; Report Immunity to Registry: Yes; Not Available [facility] 4 06:58:29 Hemorrhoi ds 27124027 Active 2009 Hemorrhoid s; snomeddesc ription: Hemorrhoid s; Report Immunity to Registry: Yes; Notes: internal and external; Unspecifi ed hemorrhoid s; snomeddesc ription: Hemorrhoid s; Report Immunity to Registry: Yes; Notes: internal and external; Not Available [facility] 4 06:58:32 Nasal congestio n 15858415 Active 2009 Nasal congestion ; snomeddesc ription: Nasal congestion ; Report Immunity to Registry: Yes; Notes: sinusitis/ allergies; Nasal congestion ; snomeddesc ription: Nasal congestion ; Report Immunity to Registry: Yes; Notes: sinusitis/ allergies; Not Available [facility] 4 06:58:33 Gout 30996771 Active 2009 Gout; Report Immunity to Registry: Yes; Not Available [facility] 4 06:58:33 Ulcer of esophagus 54559730 Active 2010 Ulcer of esophagus; snomeddesc ription: Ulcer of esophagus; Report Immunity to Registry: Yes; Notes: EGD/biopsy 2014; ulcerative esophagiti s ; Ulcer of esophagus without bleeding; snomeddesc ription: Ulcer of esophagus; Report Immunity to Registry: Yes; Notes: EGD/biopsy 2014; ulcerative esophagiti s ; Not Available [facility] 4 06:58:27 Essential hypertens ion 67179173 Active 2010 Essential (primary) hypertensi on; snomeddesc ription: Hypertensi ve disorder; Report Immunity to Registry: Yes; Not Available [facility] 4 06:58:28 Hypertens sandy disorder 96444614 Active 2010 Hypertensi ve disorder; snomeddesc ription: Hypertensi ve disorder; Report Immunity to Registry: Yes; Not Available [facility] 4 06:58:28 Benign prostatic hyperplas ia 266634994 Active 2011 Benign prostatic hyperplasi a; snomeddesc ription: Benign prostatic hyperplasi a; Report Immunity to Registry: Yes; Benign prostatic hyperplasi a without lower urinary tract symptoms; snomeddesc ription: Benign prostatic hyperplasi a; Report Immunity to Registry: Yes; Not Available [facility] 4 06:58:28 Polyneuro randal 88752522 Active 2011 Polyneurop athy, unspecifie d; snomeddesc ription: Neuropathy ; Report Immunity to Registry: Yes; Not Available [facility] 4 06:58:29 Hyperlipi demia 11324280 Active 2011 Hyperlipid emia; snomeddesc ription: Hyperlipid emia; Report Immunity to Registry: Yes; Hyperlipi demia, unspecifie d; snomeddesc ription: Hyperlipid emia; Report Immunity to Registry: Yes; Not Available [facility] 4 06:58:32 Neuropath y 808673352 Active 2011 Neuropathy ; snomeddesc ription: Neuropathy ; Report Immunity to Registry: Yes; Not Available [facility] 4 06:58:33 Spasm 22133008 Active 2012 Muscle spasm; Report Immunity to Registry: Yes; Notes: upper/lowe r back/chron ic pain; Not Available [facility] 4 06:58:27 Chronic back pain 108010891 Active 2012 Chronic back pain; snomeddesc ription: Chronic back pain; Report Immunity to Registry: Yes; Notes: chronic back pain/gener alized pain back surgery 09/2018 dx l2-3 stenosis l2-3 decompessi on partial laminectom y medial fecetectom y foraminoto jose bilateral; Not Available [facility] 4 06:58:30 Pain in thoracic spine 417198911 Active 2012 Dorsalgia, unspecifie d; snomeddesc ription: Chronic back pain; Report Immunity to Registry: Yes; Notes: chronic back pain/gener alized pain back surgery 09/2018 dx l2-3 stenosis l2-3 decompessi on partial laminectom y medial fecetectom y foraminoto jose bilateral; Not Available [facility] 4 06:58:31 Furuncle 676121066 Active 2014 Furuncle; snomeddesc ription: Furuncle; Report Immunity to Registry: Yes; Notes: skin/forea christine/follic ulitis; Furuncle, unspecifie d; snomeddesc ription: Furuncle; Report Immunity to Registry: Yes; Notes: skin/forea christine/follic ulitis; Not Available [facility] 4 06:58:30 Herpesvir us infection 95373811 Active 2015 Herpesvira l infection, unspecifie d; snomeddesc ription: Herpes simplex; Report Immunity to Registry: Yes; Notes: HSV 1 pos w oral HSV sores; HSV 2 neg 2015; Not Available [facility] 4 06:58:26 Herpes simplex 66650693 Active 2015 Herpes simplex; snomeddesc ription: Herpes simplex; Report Immunity to Registry: Yes; Notes: HSV 1 pos w oral HSV sores; HSV 2 neg 2015; Not Available [facility] 4 06:58:27 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 Human immunodefi ciency virus infection; snomeddesc ription: Human immunodefi ciency virus infection; Report Immunity to Registry: Yes; Notes: [id number] neg ; Human immunodefi ciency virus [HIV] disease; snomeddesc ription: Human immunodefi ciency virus infection; Report Immunity to Registry: Yes; Notes: [id number] neg ; Not Available [facility] 4 06:58:32 Hemangiom a of intra-abd ominal structure 556349134 Active 2015 Hemangioma of intra-abdo maddi structures ; snomeddesc ription: Hemangioma of liver; Report Immunity to Registry: Yes; Not Available [facility] 4 06:58:28 Hemangiom a of liver 47839319 Active 2015 Hemangioma of liver; snomeddesc ription: Hemangioma of liver; Report Immunity to Registry: Yes; Not Available [facility] 4 06:58:31 Blood chemistry outside reference range 224857912 Active 2016 Other specified abnormal findings of blood chemistry; snomeddesc ription: Decreased testostero ne level; Report Immunity to Registry: Yes; Not Available [facility] 4 06:58:29 Testoster one level below reference range 697083803 Active 2016 Decreased testostero ne level; snomeddesc ription: Decreased testostero ne level; Report Immunity to Registry: Yes; Not Available [facility] 4 06:58:33 Tremor 70377203 Active 2017 Other specified forms of tremor; snomeddesc ription: Resting tremor; Report Immunity to Registry: Yes; Not Available [facility] 4 06:58:31 Resting tremor 90256004 Active 2017 Resting tremor; snomeddesc ription: Resting tremor; Report Immunity to Registry: Yes; Not Available [facility] 4 06:58:33 Kidney stone 62067120 Active 2018 Kidney stone; snomeddesc ription: Kidney stone; Report Immunity to Registry: Yes; Calculus of kidney; snomeddesc ription: Kidney stone; Report Immunity to Registry: Yes; Not Available [facility] 4 06:58:28 Gastroeso phageal reflux disease 242735862 Active 2018 Gastroesop hageal reflux disease; snomeddesc ription: Gastroesop hageal reflux disease; Report Immunity to Registry: Yes; Not Available [facility] 4 06:58:29 Gastroeso phageal reflux disease without esophagit is 826303113 Active 2018 Gastro-eso phageal reflux disease without esophagiti s; snomeddesc ription: Gastroesop hageal reflux disease; Report Immunity to Registry: Yes; Not Available [facility] 4 06:58:30 Diaphragm atic hernia 13327271 Active 2019 Diaphragma tic hernia without obstructio n or gangrene; snomeddesc ription: Hiatal hernia; Report Immunity to Registry: Yes; Notes: per PCP note; Not Available [facility] 4 06:58:27 Hiatal hernia 83283856 Active 2019 Hiatal hernia; snomeddesc ription: Hiatal hernia; Report Immunity to Registry: Yes; Notes: per PCP note; Not Available [facility] 4 06:58:32 Aphthous ulcer of mouth 924204807 Active 2019 Aphthous ulcer of mouth; snomeddesc ription: Aphthous ulcer of mouth; Report Immunity to Registry: Yes; Not Available [facility] 4 06:58:27 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 Recurrent oral aphthae; snomeddesc ription: Aphthous ulcer of mouth; Report Immunity to Registry: Yes; Not Available [facility] 4 06:58:28 Erectile dysfuncti on [id number] Active 2019 Male erectile disorder; Report Immunity to Registry: Yes; Notes: low testostero ne; Not Available [facility] 4 06:58:30 Chronic pain [id number] Active 2020 Chronic pain; snomeddesc ription: Chronic pain; Report Immunity to Registry: Yes; Notes: Back/shoul erica.all body; Other chronic pain; snomeddesc ription: Chronic pain; Report Immunity to Registry: Yes; Notes: Back/shoul erica.all body; Not Available [facility] 4 06:58:26 Lipodystr ophy [id number] Active 2022 Siddharth Metz MD [address] [place], [place] [address], [address] , RANDALL METZ MD [facility] 3 02:42:40 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 Please review this document and add these problems to the patient's chart manually as needed. Problem Notes None recorded. Medical Equipment None Reported. Allergies No known drug allergies Medications Name Sig Start Date Stop Date Status Note LastModified by Organization Details LastModified Time celecoxib 200 mg capsule 200 mg Quantity : 60; Duration : 30; 0 refill(s ) 11/24 completed Duration : 30; VACCINE_ IND: no; Not Available Not Available Not Available fluconazo le 100 mg tablet TAKE 1 TABLET BY MOUTH EVERY DAY FOR 14 DAYS active Not Available Not Available No t Available methocarb alvarez 500 mg tablet 500 MG TABS; Quantity : 90; Duration : 30; 0 refill(s ) 11/24 completed Duration : 30; VACCINE_ IND: no; Not Available Not Available Not Available clotrimaz ole 10 mg wally 10 mg Quantity : 50; Duration : 10; 0 refill(s ) 05/26 completed Not Available Not Available Not Available nystatin 100,000 unit/mL oral suspensio n RINSE WITH 4 TO 6 ML IN MOUTH 4 TIMES A DAY active Not Available Not Available No t Available prednison e 10 mg tablet 10 mg Quantity : 7; 0 refill(s ) 04/24 completed Frequenc y: qd; VACCINE_ IND: no; SU_FULL_ NAME: Siddharth tovar; Not Available Not Available Not Available gabapenti n 600 mg tablet TAKE 1 TABLET BY MOUTH FOUR TIMES DAILY FOR PAIN active Not Available Not Available No t Available doxycycli ne hyclate 100 mg capsule TAKE 1 CAPSULE BY MOUTH EVERY DAY active Not Available Not Available No t Available Pneumovax -23 25 mcg/0.5 mL injection solution - Quantity : ; 0 refill(s ) 02/25 completed VACCINE_ IND: yes; VACCINE_ NAME: pneumoco ccal polysacc haride PPV23; SU_FULL_ NAME: Siddharth tovar; Not Available Not Available Not Available tizanidin e 4 mg tablet TAKE 2 TABLETS BY MOUTH TWICE A DAY NEEDED FOR MUSCLE SPASMS active Not Available Not Available No t Available doxepin 25 mg capsule 25 Quantity : 90; Duration : 30; 0 refill(s ) 05/26 completed Duration : 30; VACCINE_ IND: no; Not Available Not Available Not Available hydrocodo ne 5 mg-acetam inophen 325 mg tablet TAKE 1 TABLET BY MOUTH EVERY 4 TO 6 HOURS NEEDED FOR PAIN active Not Available Not Available No t Available fluconazo le 200 mg tablet TAKE 1 TABLET EVERY DAY BY MOUTH, FOR THRUSH. active Not Available Not Available No t Available prednison e 20 mg tablet 20 mg Quantity : 5; Duration : 5; 0 refill(s ) 08/19 completed Frequenc y: qd; Duration : 5; VACCINE_ IND: no; SU_FULL_ NAME: Siddharth tovar; Not Available Not Available Not Available fluoxetin e 10 mg tablet TAB 10MG; Quantity : 60; Duration : 30; 0 refill(s ) 05/26 completed Duration : 30; VACCINE_ IND: no; Not Available Not Available Not Available Mylanta Gas Maximum Strength 125 mg capsule 1-2 tab po qd prn for GERD/josr sea 11/03 completed Duration : 60; VACCINE_ IND: no; SU_FULL_ NAME: Siddharth tovar; Not Available Not Available Not Available hydroxyzi ne HCl 50 mg tablet TAKE 1 TABLET 4 TIMES A DAY BY ORAL ROUTE NEEDED FOR 30 DAYS, FOR ANXIETY. active Not Available Not Available No t Available valacyclo vir 500 mg tablet TAB 500MG; Quantity : 30; Duration : 30; 0 refill(s ) 10/14 completed Duration : 30; VACCINE_ IND: no; Not Available Not Available Not Available morphine ER 30 mg tablet,ex tended release SUL TAB 30MG ER; Quantity : 28; Duration : 28; 0 refill(s ) 05/26 completed Duration : 28; VACCINE_ IND: no; Not Available Not Available Not Available sulfameth oxazole 800 mg-trimet hoprim 160 mg tablet DS TAB 800-160; Quantity : 14; Duration : 7; 0 refill(s ) 02/17 completed Duration : 7; VACCINE_ IND: no; Not Available Not Available Not Available omeprazol e 40 mg capsule,d elayed release TAKE 1 CAPSULE BY MOUTH EVERY DAY active Not Available Not Available No t Available doxycycli ne monohydra te 100 mg tablet MONO TAB 100MG; Quantity : 60; Duration : 60; 0 refill(s ) 10/31 completed Duration : 60; VACCINE_ IND: no; Not Available Not Available Not Available tramadol 50 mg tablet HCL 50MG TAB; Quantity : 240; Duration : 30; 0 refill(s ) 08/19 completed Duration : 30; VACCINE_ IND: no; Not Available Not Available Not Available amoxicill in 500 mg tablet TAKE 1 TABLET BY MOUTH 3 TIMES A DAY UNTIL GONE active Not Available Not Available No t Available Kenalog 0.147 mg/gram topical aerosol in orabase topical apply in affected area bid 09/13 completed VACCINE_ IND: no; SU_FULL_ NAME: Siddharth tovar; Not Available Not Available Not Available baclofen 20 mg tablet TAB 20MG; Quantity : 270; Duration : 90; 0 refill(s ) 10/31 completed Duration : 90; VACCINE_ IND: no; Not Available Not Available Not Available pramipexo le 0.5 mg tablet TAB 0.5MG; Quantity : 180; Duration : 90; 0 refill(s ) 11/03 completed Duration : 90; VACCINE_ IND: no; Not Available Not Available Not Available meloxicam 7.5 mg tablet 7.5MG TAB; Quantity : 30; Duration : 30; 0 refill(s ) 08/20 completed Duration : 30; VACCINE_ IND: no; Not Available Not Available Not Available oxycodone -acetamin ophen 5 mg-325 mg tablet TAKE 1 TABLET BY MOUTH 4 TIMES A DAY NEEDED FOR PAIN active Not Available Not Available No t Available terbinafi ne HCl 250 mg tablet TAKE 1 TABLET BY MOUTH EVERY DAY active Not Available Not Available No t Available alprazola m 0.5 mg tablet TAB 0.5; Quantity : 90; Duration : 30; 0 refill(s ) 05/17 completed Duration : 30; VACCINE_ IND: no; Not Available Not Available Not Available oxycodone -acetamin ophen 10 mg-325 mg tablet TAB 10-325MG ; Quantity : 112; Duration : 28; 0 refill(s ) 10/14 completed Duration : 28; VACCINE_ IND: no; Not Available Not Available Not Available tamsulosi n 0.4 mg capsule TAKE 1 CAPSULE BY MOUTH 30 MINUTES AFTER SAME MEAL EVERY DAY. active Not Available Not Available No t Available Keflex 250 mg capsule 250 mg Quantity : 6; 0 refill(s ) 08/07 completed Frequenc y: bid; VACCINE_ IND: no; SU_FULL_ NAME: Siddharth tovar; Not Available Not Available Not Available meclizine 25 mg tablet TAKE 1 TABLET BY MOUTH 3 TIMES A DAY IF NEEDED FOR DIZZINES S. active Not Available Not Available No t Available doxycycli ne monohydra te 100 mg capsule monohydr ate 100 mg Quantity : 28; 0 refill(s ) 05/23 completed Frequenc y: bid; VACCINE_ IND: no; SU_FULL_ NAME: Siddharth tovar; Not Available Not Available Not Available hydrocodo ne 7.5 mg-acetam inophen 325 mg tablet BITARTRA TE/ACETA MINOPHE N 7.5-325 MG TABS; Quantity : 120; Duration : 30; 0 refill(s ) 11/24 completed Duration : 30; VACCINE_ IND: no; Not Available Not Available Not Available simvastat in 20 mg tablet TAKE 1 TABLET BY MOUTH EVERYDAY AT BEDTIME active Not Available Not Available No t Available acyclovir 5 % topical ointment apply in affected area bid 08/07 completed VACCINE_ IND: no; SU_FULL_ NAME: Siddharth tovar; Not Available Not Available Not Available mirtazapi ne 30 mg tablet active Not Available Not Available Not Available lisinopri l 10 mg tablet TAB 10MG; Quantity : 90; Duration : 90; 0 refill(s ) 05/13 completed Duration : 90; VACCINE_ IND: no; Not Available Not Available Not Available lidocaine 5 % topical patch APPLY 1 PATCH TOPICALL Y EVERYDAY FOR 30 DAYS active Not Available Not Available No t Available hydrochlo rothiazid e 12.5 mg capsule 12.5 Quantity : 90; Duration : 90; 0 refill(s ) 05/13 completed Duration : 90; VACCINE_ IND: no; Not Available Not Available Not Available Valtrex 1 gram tablet 1 g Quantity : 10; 0 refill(s ) 09/13 completed Frequenc y: bid; VACCINE_ IND: no; SU_FULL_ NAME: Siddharth tovar; Not Available Not Available Not Available mupirocin calcium 2 % topical cream 2 Quantity : 30; Duration : 20; 0 refill(s ) 10/14 completed Duration : 20; VACCINE_ IND: no; Not Available Not Available Not Available docusate sodium 100 mg capsule TAKE 1 CAPSULE BY MOUTH TWICE A DAY 05/26 completed Not Available Not Available Not Available etodolac 400 mg tablet TAB 400MG; Quantity : 60; Duration : 30; 0 refill(s ) 10/31 completed Duration : 30; VACCINE_ IND: no; Not Available Not Available Not Available hydroxyzi ne HCl 25 mg tablet TAKE 1 TABLET EVERY DAY BY ORAL ROUTE FOR 90 DAYS, FOR ANXIETY. active Not Available Not Available No t Available mupirocin 2 % topical ointment APPLY TO AFFECTED AREA TWICE A DAY NEEDED active Not Available Not Available No t Available zolpidem 5 mg tablet TARTRATE 5MG TAB; Quantity : 30; Duration : 30; 0 refill(s ) 08/19 completed Duration : 30; VACCINE_ IND: no; Not Available Not Available Not Available mirtazapi ne 15 mg tablet TAKE 1 TABLET BY MOUTH EVERY DAY AT NIGHT active Not Available Not Available No t Available ibuprofen 600 mg tablet TAKE 1 TABLET BY MOUTH EVERY 6 HOURS NEEDED active Not Available Not Available No t Available oxycodone -acetamin ophen 7.5 mg-325 mg tablet TAB 7.5-325; Quantity : 112; Duration : 28; 0 refill(s ) 06/30 completed Duration : 28; VACCINE_ IND: no; Not Available Not Available Not Available albuterol sulfate HFA 90 mcg/actua tion aerosol inhaler INHALE 2 PUFFS BY MOUTH EVERY 6 HOURS NEEDED FOR WHEEZE active Not Available Not Available No t Available celecoxib 100 mg capsule TAKE 1 CAPSULE BY MOUTH TWICE A DAY NEEDED FOR PAIN active Not Available Not Available No t Available hydroxyzi ne HCl 10 mg tablet HYDROCHL ORIDE 10MG TAB; Quantity : 90; Duration : 90; 0 refill(s ) 05/22 completed Duration : 90; VACCINE_ IND: no; Not Available Not Available Not Available fluoxetin [...] Not Available Not Available No t Available testoster one 1 % (50 mg/5 gram) transderm al gel packet APPLY CONTENTS OF 1 PACKET TO SKIN DAILY DIRECTED 04/24 completed Duration : 30; VACCINE_ IND: no; SU_FULL_ NAME: Siddharth tovar; Not Available Not Available Not Available Reglan 5 mg tablet 1 tab po qd PRN for nausea 05/13 completed Duration : 30; VACCINE_ IND: no; SU_FULL_ NAME: Siddharth tovar; Not Available Not Available Not Available oxycodone 5 mg tablet TAKE 1 TABLET BY MOUTH EVERY 6 HOURS NEEDED FOR PAIN active Not Available Not Available No t Available Laxative (bisacody l) 5 mg tablet,de layed release TAKE 2 TABLETS BY MOUTH RIGHT BEFORE BEGINNIN G BOWEL PREP PER INSTRUCT IONS PROVIDED BY THE OFFICE active Not Available Not Available No t Available duloxetin e 60 mg capsule,d elayed release 60 Quantity : 90; Duration : 90; 0 refill(s ) 12/03 completed Duration : 90; VACCINE_ IND: no; Not Available Not Available Not Available Menactra (PF) 4 mcg/0.5 mL intramusc ular solution 0 Quantity : 0.5; Duration : 1; 0 refill(s ) 11/03 completed Duration : 1; VACCINE_ IND: no; VACCINE_ NAME: meningoc occal MCV4P; Not Available Not Available Not Available tizanidin e 4 mg capsule 4 mg Quantity : 30; Duration : 30; 1 refill(s ) 08/19 completed Frequenc y: qd; Duration : 30; VACCINE_ IND: no; SU_FULL_ NAME: Siddharth Kothari guy; Not Available Not Available Not Available Adacel (Tdap Adolesn/A dult)(PF) 2Lf-(2.5- 5-3-5mcg) -5 Lf/0.5 mL IM susp 5 units-2 units-15 .5 mcg/0.5 mL Quantity : ; 0 refill(s ) 02/17 completed VACCINE_ IND: yes; VACCINE_ NAME: Tdap; SU_FULL_ NAME: Siddharth tovar; VIS_DATE : 18:48:31 .0; Not Available Not Available Not Available chlorhexi dine gluconate 0.12 % mouthwash SWISH 15ML IN MOUTH FOR 30 SECONDS THEN SPIT OUT TWICE A DAY active Not Available Not Available No t Available Hibiclens apply as directed daily x 6 weeks 01/20 completed VACCINE_ IND: no; SU_FULL_ NAME: Siddharth tovar; Not Available Not Available Not Available tramadol ER 100 mg tablet,ex tended release 24 hr TAKE 1 TABLET BY MOUTH EVERY DAY 11/03 completed Duration : 30; VACCINE_ IND: no; Not Available Not Available Not Available testoster one 50 mg/5 gram (1 %) transderm al gel 1 Quantity : 150; Duration : 30; 0 refill(s ) 10/14 completed Duration : 30; VACCINE_ IND: no; Not Available Not Available Not Available Havrix (PF) 1,440 MARCO ANTONIO unit/mL intramusc ular syringe 1440 Quantity : 1; Duration : 30; 0 refill(s ) 09/04 completed Duration : 30; VACCINE_ IND: no; VACCINE_ NAME: Hep A, adult; Not Available Not Available Not Available ferrous sulfate 324 mg (65 mg iron) tablet,de layed release TAKE 1 TABLET BY MOUTH 3 TIMES WEEKLY active Not Available Not Available No t Available Engerix-B (PF) 20 mcg/mL intramusc ular suspensio n 20 mcg/mL Quantity : ; 0 refill(s ) 08/07 completed VACCINE_ IND: yes; VACCINE_ NAME: Hep B, adult; SU_FULL_ NAME: Siddharth tovar; Not Available Not Available Not Available Havrix (PF) 1,440 MARCO ANTONIO unit/mL intramusc ular suspensio n 1440 units/mL preserva tive free Quantity : ; 0 refill(s ) 02/17 completed VACCINE_ IND: yes; VACCINE_ NAME: Hep A, adult; SU_FULL_ NAME: Siddharth tovar; VIS_DATE : 05:00:00 .0; Not Available Not Available Not Available diclofena c epolamine 1.3 % transderm al 12 hour patch APPLY 1 PATCH TO AFFECTED AREA EVERY DAY NEEDED active Not Available Not Available No t Available oxycodone 10 mg tablet TAB 10MG; Quantity : 84; Duration : 28; 0 refill(s ) 06/30 completed Duration : 28; VACCINE_ IND: no; Not Available Not Available Not Available Anbesol (benzocai ne) Maximum Strength 20 % oral mucosal liquid APPLY SMALL AMOUNT IN AFFECTED ORAL AREA TWICE A DAY NEEDED 05/26 completed Not Available Not Available Not Available GaviLyte- G 236 gram-22.7 4 gram-6.74 gram-5.86 gram oral solution START 6PM NIGHT BEFORE & DRINK 8OZ AT OWN PACE UNTIL 1/2 GONE & 1/2 5 HOURS BEFORE PROCEDUR E. active Not Available Not Available No t Available Prevnar 13 (PF) 0.5 mL intramusc ular syringe - Quantity : ; 0 refill(s ) 12/03 completed VACCINE_ IND: yes; VACCINE_ NAME: Pneumoco ccal conjugat e PCV 13; SU_FULL_ NAME: Siddharth Kothari guy; VIS_DATE : 20:05:33 .0; Not Available Not Available Not Available buprenorp kendra 4 mg-naloxo ne 1 mg sublingua l film 0 Quantity : 56; Duration : 28; 0 refill(s ) 05/13 completed Duration : 28; VACCINE_ IND: no; Not Available Not Available Not Available OxyContin 20 mg tablet,cr ush resistant ,extended release TAB 20MG CR; Quantity : 56; Duration : 28; 0 refill(s ) 10/31 completed Duration : 28; VACCINE_ IND: no; Not Available Not Available Not Available Belbuca 150 mcg buccal film 150 Quantity : 56; Duration : 28; 0 refill(s ) 12/03 completed Duration : 28; VACCINE_ IND: no; Not Available Not Available Not Available Belbuca 900 mcg buccal film 900 Quantity : 60; Duration : 30; 0 refill(s ) 11/03 completed Duration : 30; VACCINE_ IND: no; Not Available Not Available Not Available Narcan 4 mg/actuat ion nasal spray 4.000 Quantity : 2; Duration : 2; 0 refill(s ) 11/20 completed Duration : 2; VACCINE_ IND: no; Not Available Not Available Not Available Afluria 45 mcg (15 mcg x 3)/0.5 mL intramusc ular suspensio n trivalen t Quantity : ; 0 refill(s ) 05/26 completed VACCINE_ IND: yes; VACCINE_ NAME: Influenz a, seasonal , injectab le; SU_FULL_ NAME: Siddharth tovar; Not Available Not Available Not Available Afluria 45 mcg (15 mcg x 3)/0.5 mL intramusc ular suspensio n trivalen t Quantity : ; 0 refill(s ) 08/07 completed VACCINE_ IND: yes; VACCINE_ NAME: Influenz a, seasonal , injectab le; SU_FULL_ NAME: Siddharth tovar; Not Available Not Available Not Available Qvar RediHaler 80 mcg/actua tion HFA breath activated aerosol INHALE 2 PUFFS BY MOUTH 2 TIMES A DAY active Not Available Not Available No t Available Shingrix (PF) 50 mcg/0.5 mL intramusc ular suspensio n, kit 50 Quantity : 1; Duration : 1; 0 refill(s ) 03/24 completed Duration : 1; VACCINE_ IND: no; VACCINE_ NAME: zoster recombin ant; Not Available Not Available Not Available Biktarvy 50 mg-200 mg-25 mg tablet TAKE 1 TABLET BY MOUTH EVERY DAY 2024 active Not Available Not Available Not [facility] 60 mcg (15 mcg x 4)/0.5 mL IM suspensio n quadriva lent Quantity : ; 0 refill(s ) 02/17 completed VACCINE_ IND: yes; VACCINE_ NAME: influenz a, injectab le, quadriva lent; SU_FULL_ NAME: Siddharth tovar; VIS_DATE : 19:00:49 .0; Not Available Not Available Not Available Afluria Quad 60 mcg (15 mcg x 4)/0.5 mL intramusc ular susp. quadriva lent Quantity : ; 0 refill(s ) 04/21 completed VACCINE_ IND: yes; VACCINE_ NAME: influenz a, injectab le, quadriva lent; SU_FULL_ NAME: Siddharth tovar; VIS_DATE : 14:48:29 .0; Not Available Not Available Not Available Egrifta SV 2 mg subcutane ous solution 1.4 mg by sub-q route. active Not Available Not Available No t Available Flublok Quad (PF) 180 mcg (45 mcg x 4)/0.5 mL IM syringe 0 Quantity : 0.5; Duration : 1; 0 refill(s ) 04/20 completed Duration : 1; VACCINE_ IND: no; VACCINE_ NAME: influenz a, recombin ant, quadriva lent,inj ectable, preserva tive free; Not Available Not Available Not Available Moderna COVID-19 (12 yr up) Vaccine (PF) 100 mcg/0.5 mL IM susp (EUA) 100 mcg/0.5 mL Quantity : ; 0 refill(s ) 02/01 completed VACCINE_ IND: yes; VACCINE_ NAME: COVID-19 , mRNA, LNP-S, PF, 100 mcg/0.5m L dose or 50 mcg/0.25 mL dose; Not Available Not Available Not Available Vitals Date Recorded Body height Heart rate Respiratory rate Body temperature Body mass index (BMI) Body weight Oxygen saturation Oxygen saturation in Arterial blood by Pulse oximetry Systolic And Diastolic Provider Name and Address Organization Details Last Updated DateTime 5 177.8 cm 67 /min 12 /min 98.4 [degF] 28.7 kg/m2 50518.4 7 g 96 % 96 % 108/70 mm[Hg] Tiff [facility] 5 14:57:19 Date Recorded Body height Heart rate Body temperature Body mass index (BMI) Body weight Systolic And Diastolic Provider Name and Address Organization Details Last Updated DateTime 5 177.8 cm 63 /min 98.3 [degF] 28.3 kg/m2 89246.7 g 132/74 mm[Hg] Tiff METZ MD [facility] 5 14:11:38 Date Recorded Body height Heart rate Respiratory rate Body temperature Body mass index (BMI) Body weight Head circumference Oxygen saturation Oxygen saturation in Arterial blood by Pulse oximetry Systolic And Diastolic Provider Name and Address Organization Details Last Updated DateTime 4 177.8 cm 70 /min 12 /min 98.4 [degF] 27.7 kg/m2 61149.3 3 g 95.5 cm 96 % 96 % 120/78 mm[Hg] Tiff METZ MD [facility] 4 15:21:04 Date Recorded Body height Heart rate Body temperature Body mass index (BMI) Body weight Systolic And Diastolic Provider Name and Address Organization Details Last Updated DateTime 5 177.8 cm 72 /min 97.2 [degF] 27.5 kg/m2 87895.7 4 g 98/63 mm[Hg] Shahla METZ MD [facility] 5 14:03:50 Date Recorded Body height Heart rate Respiratory rate Body temperature Body mass index (BMI) Body weight Oxygen saturation Oxygen saturation in Arterial blood by Pulse oximetry Head circumference Systolic And Diastolic Provider Name and Address Organization Details Last Updated DateTime 4 177.8 cm 62 /min 12 /min 98.7 [degF] 28 kg/m2 68878.5 1 g 98 % 98 % 93.5 cm 126/80 mm[Hg] Tiff METZ MD [facility] 4 15:01:25 Social History Question Answer Notes LastModified by Organizat ion Details LastModified Time Tobacco Smoking Status Never Smoker RANDALL Seaman MD [facility] 02/24/2023 15:11:34 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 No [email or web address] Information not available 02/24/2023 What Type Of Diet Are You Following? REGULAR [email or web address] Information not available 02/24/2023 Which Of Your Hands Is Dominant? Right [email or web address] Information not available 02/24/2023 Do You Use Your Seat Belt Or Car Seat Routinely? Yes [email or web address] Information not available 02/24/2023 Do You Have Difficulty Walking Or Climbing Stairs? Yes Back Pain [email or web address] Information not available 02/24/2023 Do You Have Any Dietary Restrictions? No [email or web address] Information not available 02/24/2023 Sex: Male Functional Status Question Answer Note LastModified by Organizat ion Details LastModified Time Do you have transportation difficulties? No [email or web address] Information not available 02/24/2023 Are you able to walk independently without assistance or assistive devices? YESWOREST [email or web address] Information not available 02/24/2023 Do you have difficulty doing errands alone? No [email or web address] Information not available 02/24/2023 Are you able to care for yourself independently? Yes Information not available 02/24/2023 Do you have difficulty dressing, bathing, grooming, or toileting? No [email or web address] Information not available 02/24/2023 Mental Status Question Answer Note LastModified by Organizat ion Details LastModified Time Do you feel stressed (tense, restless, nervous, or anxious, or unable to sleep at night)? [id number] [email or web address] Information not available 02/24/2023 Do you have difficulty concentrating, remembering or making decisions? No [email or web address] Information no t available 02/24/2023 Family History Nothing Reported Notes:Hypertension, Response Property: Yes; , Stroke, Response Property: Yes; Medical History Condition Response Anxiety Disorder Y AIDS/HIV Y Depression Y Immunizations Vaccine Type Date Status Note Provider Nam e and Address Organization Details Recorded Time COVID-19, mRNA, LNP-S, PF, 50 mcg/0.5 mL 03/24/2023 completed RANDALL Cifuentes MD 11/04/2023 14:39:33 Past Encounters Encounter ID Performer Location Encounter Start Date Encounter Closed Date Diagnosis/Indication Diagnosis SNOMED-CT Code Diagnosis ICD10 Code Diagnosis IMO Codes Diagnosis Note [id number], [place] Main Office [address] [place] [address] 02/24/2023 14:54:31 03/05/2023 07:47:11 Human immunodeficiency virus infection 30302591 B20 Detected HIV VL. pt denies new meds, missing doses, denies supplement s.resistan ce test ordered.ma y need to change regimen if evidence of viral resistance to componenss trict compliance avoid supplement sflu and prevnar 20 prescribed . 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 pt aware this is not weight loss tx.potenti al side effects reviewed such as allergic reactions, edema, myalgia, arthlagia among other. s/c med; needs to rotate. 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 to decrease frequency and severity of flareups. [id number] Metz MD Main Office [address] [place] [address] 05/27/2023 11:58:48 05/27/2023 13:14:52 Human immunodeficiency virus infection 71868248 B20 on Biktarvy 1 tab po qd.clinicl trial options reviewed with monoclonal AB; consent providedst rict compliance reviewed.a void supplement spt aware of PreP availabili tycondom use [id number] Sidd[address]arth Metz MD Main Office [address] [place] [address] 08/25/2023 12:03:16 08/25/2023 13:23:31 Human immunodeficiency virus infection 41613602 B20 on Biktarvy 1 tab po qd.strict compliance reviewed.a void supplement s or keep them 6 hrs apart; ot take w Biktarvy w foodpt aware of PreP availabili ty. U=U reviewed.c ondom use for STI prevention Candidiasis of mouth [id number] 83683 B37.0 fluconazol e prescribed for thrush. has tolerated well in the past.oral bacterial swab/funga l swab obtained.c all if recurrence in setting of recent dental extraction Methicilli n resistant Staphylococcus aureus infection 027060442 A49.02 on qd suppressio n tx PRN. to decrease frequency and severity of flareups. 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 [id number] Siddharth Metz MD Main Office [address] [place] [phone] 09/15/2023 14:59:47 09/15/2023 15:20:13 Human immunodeficiency virus infection [id number] B20 on Biktarvy 1 tab po qd.strict compliance reviewed.a void supplement s or keep them 6 hrs apart; ot take w Biktarvy w foodpt aware of PreP availabili ty. 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 first dose administer ed today; training provided. consent signed. pt is aware of the need to rotate injection site.poten tial side effects such as rash, swelling, carpal tunnel like syndrome, allergic reactions, BStx expectatio ns reviewed; this is not a weight loss tx. it will address HIV associated lipohypert rophy; may help w lipids, BS among other potential benefits.a waiting insurance determinat ion regarding Egrifta.se maglutide s/c was reviewed as an alternativ e options if egrifta does not get approved. [id number] Siddharth Metz MD Main Office [address] [place] [address] 11/04/2023 14:13:14 11/04/2023 15:02:39 Human immunodeficiency virus infection [id number] B20 on Biktarvy 1 tab po qd.strict compliance reviewed.a void supplement s or keep them 6 hrs apart; ot take w Biktarvy w foodpt aware of PreP availabili ty. 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 correct use rveiewed. [id number] Siddharth Metz MD Main Office [address] [place] [phone] 02/10/2024 15:03:59 02/10/2024 15:55:05 Human immunodeficiency virus infection 20423010 B20 on Biktarvy 1 tab po qd.strict compliance reviewed.a void supplement s or keep them 6 hrs apart; ot take w Biktarvy w foodpt aware of PreP availabili ty. U=U reviewed.c ondom use for STI prevention aware of DoxyPEP Folliculitis 55595802 L7 3.9 on topical antibiotic PRNdoxycyc line suppressio n tx Anxiety 68047270 F41.9 Hydroxyzin e 25 mg po qhs; has tolerated well in the past. correct use reviewed Candidiasi s of mouth and esophagus 914530711 B37.81 no allergies to azoles.flu conazole qd x 14 dayscall if recurrent or intoleranc e [id number] Siddharth Metz MD Main Office [address] [place] [phone] 05/13/2024 15:00:02 05/13/2024 15:18:57 Human immunodeficiency virus infection 17587152 B20 on Biktarvy 1 tab po qd.strict compliance reviewed.a void supplement s or keep them 6 hrs apart; ot take w Biktarvy w foodpt aware of PreP availabili ty. U=U reviewed.c ondom use for STI prevention COVID19, flu an dRSV vaccines recommende daware of DoxyPEP Folliculitis 59099276 L7 3.9 on topical mupirocin/ antibiotic PRNdoxycyc line suppressio n txavoid touching scabs Anxiety 75421011 F41.9 increase dose of Hydroxyzin e from 25 mg to 50mg po qhs; has tolerated well in the past. 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 pt aware this is not weight loss tx. [id number] Siddharth Metz MD Main Office [address] [place] [address] 08/22/2024 14:25:45 08/22/2024 15:20:57 Human immunodeficiency virus infection 44747107 B20 on Biktarvy 1 tab po qd.strict compliance reviewed to prevent VF, resistance and transmissi onclinical trial options reviewedla bs orderedavo id supplement s or keep them 6-8 hrs apart; or take w Biktarvy w foodpt aware of PreP and DOXYPEP availabili ty. U=U reviewed.c ondom use for STI prevention RSV and prevanr 20 recommende d Lipodystrophy 79981989 E 88.1 d/c Egrifta pt feels it is not working; and no further results. needs a break/inje ction fatigue; he is aware that abd fat could return while off Egrifta. will observe. Obesity 418919991 E66.9 zepbound to be ordered once labs reviewedpt has had chronic elevated lipase /amylase in the past ; no clinical pancreatit is hx; has seen GI and workup has been negative.i instructed him to discuss safety og GLP1 with GI in setting of lab finding.wi order CMP, lipase and other testing as needed [id number] Siddharth Metz MD Main Office [address] [place] [address] 11/22/2024 13:46:09 11/22/2024 14:38:21 Human immunodeficiency virus infection 73912586 B20 on Biktarvy 1 tab po qd.strict compliance reviewed to prevent VF, resistance and transmissi onclinical trial options reviewedla bs orderedavo id supplement s or keep them 6-8 hrs apart; or take w Biktarvy w foodpt aware of PreP and DOXYPEP availabili ty. U=U reviewed.c ondom use for STI prevention Lipodystrophy 76158389 E 88.1 d/c Egrifta pt feels it is not working; and no further results. needs a break/inje ction fatigue; he is aware that abd fat could return while off Egrifta. will observe. [id number] Siddharth Metz MD Main Office [address] [place] [address] RANDALL BONDS [phone] 02/22/2025 13:56:30 02/22/2025 14:46:09 Human immunodeficiency virus infection 24523295 B20 on Biktarvy 1 tab po qd.strict compliance reviewed to prevent VF, resistance and transmissi onclinical trial options reviewedla bs ordered; he took order with him.avoid supplement s or keep them 6-8 hrs apart; or take w Biktarvy w foodpt aware of PreP and DOXYPEP availabili ty. U=U reviewed.c ondom use for STI prevention Lipodystrophy 99880394 E 88.1 d/c Egrifta pt feels it is not working; and no further results. needs a break/inje ction fatigue; he is aware that abd fat could return while off Egrifta. will observe.GL P1's reviewed in the past; has not prescribed due to baseline asymptomat ic elevated lipase. Anxiety 00652170 F41.9 69907 increase dose of Hydroxyzin e 50mg po qhs; has tolerated well in the past. correct use reviewedne eds refill of the 50mg tablets Methicilli n resistant Staphylococcus aureus infection 585947488 A49.02 042614 on qd Doxycyclin e suppressio n tx PRN. to decrease frequency and severity of flareups.m upirocin prescribed PRN Health Concerns Section Related Observation LastModified by Organization Detai ls LastModified Time None Recorded Concern Status LastModified by Organization Details LastModified Time None Recorded Advance Directives Directive None Recorded Payers Insurance Date Sequence Insurance Name Policy Number Policy Gunn Covered Member ID Gunn Member ID Guarantor Name 02/19/2025 1 GPal (Prong[employer]) [facility] Roni Willson [id number] Roni Willson 02/19/2025 2 [place]: [facility] Roni Willson [id number] Roni Willson Notes Date Note Type Note Provider Name and Address Organization Details Recorded Time 02/10/2024 text/html ROS as noted in the HPI f/u HIVon Biktarvy 1 tab po qd.compliant w Biktarvymed list reviewed.labs [facility] with [facility]01/2024 HIV VL nondetected; AST/SUSAN wnl; GC/chlamydia neg; HCV neg; treponemal ab neg; eGFR= 67 ZU3=2414/2023 722; HIV VL nondetected; 3GFR>70; ALt/AST wnl;08/2023 WT6=263; aslt/ast wnl; eGFR>60; HCV neg; GC negative; no evrvpfrj70/1/23 HIV VL=43; no HCV. no syphilis; ALT/ASt wbl; eGFR-75; no GC/no chlamydia08/2022 HIV VL nondetcetd; ALT/AST wnl; eGFR>60;has female partner.doing ok except for chronic pain; some changes on his med listhe says he was tx for thrush with oral solution, but feel needs stronger doseno allergieshas had 4 dental procedures; some complications; he says x ray was done and no bone infection; has seen dental and oral surgery; has denturesno rash. no abd pain. no n/v/d. no chills. no sweats.off Egriftaskin: no new folliculitis. on mupirocin prn; on doxycycline for suppression tx. helping. Siddharth Metz MD [address] [place] [address], [phone], [place] - SIDDHARTH METZ MD [facility] 02/10/2024 17:12:16 05/13/2024 text/html ROS as noted in the HPI f/u HIVon Biktarvy 1 tab po qd.compliant w Biktarvymed list reviewed.labs reviewed with [facility]01/2024 HIV VL nondetected; AST/SUSAN wnl; GC/chlamydia neg; HCV neg; treponemal ab neg; eGFR= 67 II4=3673/2024 722; HIV VL nondetected; 3GFR>70; ALt/AST wnl;08/2023 FG0=034; aslt/ast wnl; eGFR>60; HCV neg; GC negative; no zmvwrwue49/1/23 HIV VL=43; no HCV. no syphilis; ALT/ASt wbl; eGFR-75; no GC/no chlamydia08/2022 HIV VL nondetcetd; ALT/AST wnl; eGFR>60;has female partner.thrush resolved.no rash. no abd pain. no n/v/d. no chills. no sweats.On Egrifta sq qw for 6 months; does not notice much changes in abd girth. waist circumference 39-->38no DM. NO pancreatitis hx; hx elevated lipase; had GI workup yeara ago with no etiology found.skin: some skin excoriations; admits to touching and scratching them; no new folliculitis. on mupirocin prn; on doxycycline for suppression tx. helping. Siddharth Metz MD [address] [place] [address], [phone], [facility] - SIDDHARTH METZ MD [facility] 05/13/2024 16:22:23 08/22/2024 text/html ROS as noted in the HPI f/u HIVon Biktarvy 1 tab po qd.compliant w Biktarvyhappy w med.med list reviewed.labs reviewed with elenahas female partner. aware of PreP and DOXYPEPnot working as much due to chronic back pain. no STI sx: no rash. no abd pain. no n/v/d. no chills. no sweats. no fever. Egrifta has not been available due to a shortage; pt prefers to hold egrifta; he thinks it has not helped him lately; injection fatigue. On Egrifta sq qw for 6 months; does not notice much changes in abd girth. waist circumference 39-->38 no DM. NO pancreatitis hx; hx elevated lipase chronically; had GI workup yeara ago with no etiology found.denies ETOH use. skin: some skin excoriations; admits to touching and scratching them; no new folliculitis. on mupirocin prn; on doxycycline for suppression tx. helping. hx HBP; prediabtes; hyperlipidemia; lipodystrophy; chronic pain/OA; hx tremors.no pancreatitis; no hx of thyroid cancer. 01/2024 HIV VL nondetected; AST/SUSAN wnl; GC/chlamydia neg; HCV neg; treponemal ab neg; eGFR= 67 AW8=4651/2023 722; HIV VL nondetected; 3GFR>70; ALt/AST wnl;08/2023 FO1=089; aslt/ast wnl; eGFR>60; HCV neg; GC negative; no /1/23 HIV VL=43; no HCV. no syphilis; ALT/ASt wbl; eGFR-75; no GC/no chlamydia08/2022 HIV VL nondetcetd; ALT/AST wnl; eGFR>60; Siddharth Metz MD [address] [place] [address], [phone], [place] - SIDDHARTH METZ MD [facility] 08/28/2024 11:41:13 11/22/2024 text/html ROS as noted in the HPI f/u HIVon Biktarvy 1 tab po qd.compliant w Biktarvyhappy w med.med list reviewed.labs reviewed with sylvia ALBERTS sx: no rash. no abd pain. no n/v/d. no chills. no sweats. no fever.Egrifta off for 3-6 months due to pharmacy shortage.denies ETOH use. will undergo back surgery on December 2024. skin stable: some skin excoriations; admits to touching and scratching them; no new folliculitis. on mupirocin prn; on doxycycline for suppression tx. helping.chronic elevated lipase. no etiology found; seen by Dr Mccormack. no ETOH. has had workup . 08/2024 VL nondetected; CD4 671; CMP wnk; chronic elevate; egfr=70; HBV s ag neg; TSH nl; lipid elevated on simvastatin.01/2024 HIV VL nondetected; AST/SUSAN wnl; GC/chlamydia neg; HCV neg; treponemal ab neg; eGFR= 67 VT9=6791/2023 722; HIV VL nondetected; 3GFR>70; ALt/AST wnl;08/2023 KG3=314; aslt/ast wnl; eGFR>60; HCV neg; GC negative; no /1/23 HIV VL=43; no HCV. no syphilis; ALT/ASt wbl; eGFR-75; no GC/no chlamydia08/2022 HIV VL nondetcetd; ALT/AST wnl; eGFR>60; Siddharth Metz MD [address] [place], [phone], [place] - SIDDHARTH METZ MD [facility] 11/23/2024 12:17:08 02/22/2025 text/html ROS as noted in the HPI f/u HIVon Biktarvy 1 tab po qd.compliant w Biktarvyhappy w med.med list reviewed.labs reviewed with himno STI sx: no rash. no abd pain. no n/v/d. no chills. no sweats. no fever.Egrifta off for 3-6 months due to pharmacy shortage and he feels that it was not helpful.denies ETOH use. pt is sexually active with one person x 5 yrsdid undergo back surgery on January 2025- lumbar fusionskin stable: some skin excoriations; admits to touching and scratching them; no new folliculitis. on mupirocin prn; on doxycycline for suppression tx. helping.chronic elevated lipase. no etiology found; seen by Dr Mccormack. no ETOH. has had workup pt does have some anxiety and found that the atarax has been helpful in the past.08/2024 VL nondetected; CD4 671; CMP wnk; chronic elevate; egfr=70; HBV s ag neg; TSH nl; lipid elevated on simvastatin.01/2024 HIV VL nondetected; AST/SUSAN wnl; GC/chlamydia neg; HCV neg; treponemal ab neg; eGFR= 67 NK0=8576/2023 722; HIV VL nondetected; 3GFR>70; ALt/AST wnl;08/2023 ZV4=175; aslt/ast wnl; eGFR>60; HCV neg; GC negative; no wkfmtixp34/1/23 HIV VL=43; no HCV. no syphilis; ALT/ASt wbl; eGFR-75; no GC/no chlamydia08/2022 HIV VL nondetcetd; ALT/AST wnl; eGFR>60; Siddharth Metz MD [address] [place], [phone], [place] RANDALL METZ MD [facility] 02/22/2025 16:17:56
== END 2025-03-21 13:34 | disposition home or self-care (01) ==
LOC: HO.HNS 12:54
PROVIDERS: PCP Internal Medicine; Visit Provider Physician Assistant
DX: Z98.1 Arthrodesis status (principal)
CPT/HCPCS: 99024

== ENCOUNTER → 2025-03-21 12:55 | Outpatient (BNV) | payer MEDICARE, MEDICAID, SELFPAY | PROVIDERS: Visit Provider Radiology Diagnostic Radiology | DX: M43.16 Spondylolisthesis, lumbar region (principal) | CPT/HCPCS: 72110 ==

== ENCOUNTER 2025-04-03 09:28 | Outpatient (AMB) | payer MEDICARE, MEDICAID, SELFPAY ==
--- OUTSIDE RECORDS SUMMARY | 2025-03-30 08:15 | XMS_ITS | Encounter Summary ---
Author Organization [facility] Address [address] [place] [address] Care Team Providers Care Respiratory Care Assistant Name Role Phone Gregg Todd MD Primary Care Provider Reason for Visit * Reason Comments Follow-up Encounter Details Date Type Department Care Team ([facility] Contact Info) Description 03/30/2025 8:15 AM EDT Office Visit Internal Medicine - [place] [address] [facility] [address] [place] [phone] Gregg Todd MD [address] [facility] [address] [place] [address] Dizziness (Primary Dx); Hypercholesterolemia; Current mild episode of major depressive disorder, unspecified whether recurrent (CMS/HCC V24); Mild intermittent asthma without complication Social History Tobacco Use Types Packs/Day Years [...] care for your loved ones. For example, vocational childcare teacher or elderly care for an older adult? [...] Sign Reading Time Taken Comments Blood Pressure 110/70 03/30/2025 8:31 AM EDT Pulse 54 03/30/2025 8:31 AM EDT Temperature 35.6 C (96.1 F) 03/30/2025 8:31 AM EDT Respiratory Rate - - Oxygen Saturation 93% 03/30/2025 8:31 AM EDT Inhaled Oxygen Concentration - - Weight 85.7 kg (189 lb) 03/30/2025 8:31 AM EDT Height 180.3 cm (5' 11 ) 03/30/2025 8:31 AM EDT Body Mass Index 26.36 03/30/2025 8:31 AM EDT documented in this encounter Functional [...] Progress Notes * Gregg Todd MD - 03/30/2025 8:15 AM EDT COMPLAINT medication review and testing. IDENTIFIER: Roni Willson is a 60 y.o. old male. HPI: Asthma stable. Hyperlipidemia is under control. BPH is stable. Does get some dizziness on and off. Advised to take the Flomax at night. ROS: GENERAL: No malaise, significant weight loss or fever RESPIRATORY: No cough, wheezing or shortness of breath CARDIOVASCULAR: No chest pain, leg swelling or palpitations GI: No abdominal discomfort, blood in stools or black stools PAST MEDICAL HISTORY: Patient Active Problem List Diagnosis Date Noted Preoperative cardiovascular examination 01/12/2025 Elevated blood pressure reading 01/12/2025 LFT elevation 08/23/2024 Shortness of breath on [...] deficiency 03/06/2015 Chronic sinusitis 07/01/2013 Gout 10/08/2011 Surgical History[1] SOCIAL HISTORY: Social History Tobacco Use Smoking status: Never Smokeless tobacco: Never Substance Use Topics Alcohol use: Not Currently FAMILY HISTORY: Family History[2] MEDICATIONS DISCONTINUED/REORDERED: Medications Discontinued During This Encounter Medication Reason polyethylene glycol (Golytely) 236-22.74-6.74 -5.86 gram solution bisacodyL (DULCOLAX) 5 mg EC tablet ACTIVE MEDICATIONS: Medications Taking[3] ALLERGIES: Allergies[4] PHYSICAL EXAM: Vitals: 03/30/25 0831 BP: 110/70 Pulse: 54 Temp: 35.6 ??C (96.1 ??F) SpO2: 93% APPEARANCE: Alert and in no acute distress EARS: External ears normal. HEART: RRR with normal S1 and S2, no murmurs LUNG: clear to auscultation LABS: Lab Results Component Value Date WBC 5.8 03/06/2025 HGB 13.6 03/06/2025 HCT 42.6 03/06/2025 MCV 93.4 03/06/2025 Lab Results Component Value Date NA 138 03/06/2025 K 5.2 03/06/2025 CO2 27 03/06/2025 CL 107 03/06/2025 BUN 19 03/06/2025 ALKPHOS 164 (H) 03/06/2025 Lab Results Component Value Date TSH 2.33 03/06/2025 Lab Results Component Value Date CHOL 187 03/06/2025 LDL 108 (A) 09/29/2023 HDL 53 03/06/2025 TRIG 188 (H) 03/06/2025 No components found for: URINELEUK , URINENITR , URINEPRO , URINEPH , URINEBLD , URINESG , URINEKET , URINEBILI , URINEGLUC IMAGING: IMPRESSION: 1. Dizziness 2. Hypercholesterolemia 3. Current mild episode of major depressive disorder, unspecified whether recurrent (CMS/[facility] V24) 4. Mild intermittent asthma without complication PLAN: Asthma stable on current inhaler. Hyperlipidemia, stable on Zocor .labs done recently reviewed was fine. Except for mildly elevated triglyceride low-carb diet advised. He had back surgery recently, doing well. Mild dizziness and orthostasis present. He did see the title attorney .advised to increase fluid and some salt intake [1] Past Surgical History: Procedure Laterality Date BACK SURGERY PROCEDURE:BACK SURGERY L4-L5, L5 S1 BLEPHAROPLASTY COLONOSCOPY PROCEDURE:COLONOSCOPY LUMBAR LAMINECTOMY 07/07/2018 PROCEDURE: HISTORICAL LUMB LAMINECTOMY; COMMENT: L2-3 partial [2] Family History Problem Relation Name Age of Onset Heart failure Mother Heart attack Father Bone cancer Brother [3] Outpatient Medications Marked as Taking for the 03/30/25 encounter (Office Visit) with Gregg Todd MD Medication Sig Dispense Refill albuterol HFA (PROAIR HFA ; PROVENTIL HFA ; VENTOLIN HFA) 90 mcg/actuation inhaler Inhale 2 puffs by mouth every 6 (six) hours if needed for wheezing. 1 each 11 aspirin 81 mg chewable tablet Chew 1 tablet (81 mg total) 1 (one) time each day. beclomethasone dipropionate (Qvar RediHaler) 80 mcg/actuation HFA aerosol breath activated inhaler Inhale 2 puffs by mouth 2 (two) times a day. 3 each 3 fktztyhmxtp-jxajditpvhhfj-yfqjkdzcr alafenamide (Biktarvy) 50-200-25 mg per tablet Take 1 Tab by mouth daily. doxycycline (VIBRAMYCIN) 100 mg capsule Take 100 mg by mouth daily. fluticasone furoate (Arnuity Ellipta) 100 mcg/actuation blister with device inhaler Inhale 1 puff by mouth 1 (one) time each day. 1 each 11 fluticasone propionate (FLONASE) 50 mcg/actuation nasal spray SPRAY 1 SPRAY INTO EACH NOSTRIL TWICEA DAY 48 mL 1 gabapentin (NEURONTIN) 600 mg tablet TAKE 2 TABLETS BY MOUTH EVERY MORNING, 2 TABLETS AT LUNCH AND 1 TABLET AT BEDTIME HYDROcodone-acetaminophen (NORCO) 7.5-325 mg per tablet 1 TAB BY MOUTH EVERY 6 HOURS NEEDED FOR SEVERE PAIN lidocaine (LIDODERM) 5 % patch meclizine (ANTIVERT) 25 mg tablet TAKE 1 TABLET BY MOUTH 3 TIMES A DAY IF NEEDED FOR DIZZINESS. 90 tablet 1 omeprazole (PriLOSEC) [address] capsule TAKE 1 CAPSULE BY MOUTH EVERY DAY 90 capsule 1 simvastatin (ZOCOR) 20 mg tablet Take 1 tablet (20 mg total) by mouth at bedtime. 90 tablet 1 tamsulosin (FLOMAX) 0.4 mg 24 hr capsule TAKE 1 CAPSULE BY MOUTH 30 MINUTES AFTER SAME MEAL EVERY DAY. 90 capsule 1 terbinafine (LamISIL) 250 mg tablet TAKE 1 TABLET BY MOUTH EVERY DAY 30 tablet 2 tiZANidine (ZANAFLEX) 4 mg tablet TAKE 2 TABLETS BY MOUTH TWICE A DAY NEEDED FOR MUSCLE SPASMS [4] No Known Allergies documented in this encounter Plan of Treatment Upcoming Encounters Date Type Department Care Team (Late st Contact Info) Description 05/31/2025 2:15 PM EST Office Visit Pulmonology - [address] [phone] Felicia Sparrow MD [address] [place] [id number] 09/28/2025 8:15 AM EDT Office Visit Internal Medicine - [address] [phone] Gregg Todd MD [address] [facility] [address] [place] [address] documented as of this encounter Visit Diagnoses Diagnosis Dizziness- Primary Dizziness and giddiness Hypercholesterolemia Pure hypercholesterolemia Current mild episode of major depressive disorder, unspecified whether recurrent ([facility] V24) Mild intermittent asthma without complication documented in this encounter Discontinued Medications Medication Sig Discontinue Reason Start Date End Da te polyethylene glycol (Golytely) 236-22.74-6.74 -5.86 gram solution Take 4L by mouth once for one dose. May substitue any PEG. Starting at 6PM the night before your procedure drink 1 8oz glasses at your own pace until you complete half of the gallon. Finish 2nd half of the gallon 5 hours before your procedure. 11/24/2024 03/30/2025 bisacodyL (DULCOLAX) 5 mg EC tablet Take 2 tablets by mouth right before beginning bowel prep. See instructions provided by the office 11/24/2024 03/30/2025 documented as of this encounter Additional Health Concerns Assessment Noted Time PHQ-9 Depression Total Score: 10 025 9:46 PM EDT documented as of this encounter Care Teams Respiratory Care Assistant Relationship Specialty Start Date End Date Gregg Todd MD [address] [facility] [address] [place] [address] PCP - General Internal Medicine 04/17/21 documented as of this encounter
--- NOTE | 2025-04-03 09:29 | MHC.OFFVIS ---
Vital Signs 04/03/25 09:30 Height 5 ft 11 in Weight 191 lb BMI 26.6 BP 100/60 Blood Pressure Location Lt brachial Position Sitting Respiration 16 Pulse 58 Pulse Source Pulse Oximeter Pulse Oximetry (%) 97 Oxygen Delivery Method Room Air Intake Visit Reasons: Pill Count Intake Note: Pt states he last took vicodin 04/03/25 @ 6am Allergies No Known Allergies Allergy (Verified 04/03/25 09:32) Medication List - Last Reconciled 04/03/25 by Loida Louie LPN albuterol sulfate 90 mcg/actuation 2 puffs inhalation Q6H PRN beclomethasone dipropionate 80 mcg/actuation (Qvar RediHaler) 2 inhalations inhalation BID zfgngnitu-shmhzcyf-nczugoo ala 50-200-25 mg (Biktarvy) 1 tab PO DAILY celecoxib 100 mg PO BID PRN doxycycline hyclate 100 mg PO DAILY PRN fluticasone propionate 50 mcg/actuation 1 spray intranasal BID gabapentin 600 mg PO QID hydrocodone-acetaminophen 5-325 mg 1 tab PO Q4-6H PRN hydroxyzine HCl 25 mg PO DAILY lidocaine 5% 1 patch topical DAILY 30 days meclizine 25 mg PO TID PRN mupirocin 2% 1 appl topical DAILY PRN naloxone 4 mg/actuation (Narcan) 4 mg intranasal Q2M PRN omeprazole 40 mg PO DAILY simvastatin 20 mg PO BEDTIME tamsulosin 0.4 mg PO DAILY tizanidine 8 mg PO BEDTIME PRN HPI HPI Pill Count: Details: History of Present Illness The patient is a 60-year-old male presenting with pain management following a spinal fusion. He underwent a five-level spinal fusion, resulting in persistent stiffness and discomfort, with difficulty bending forward due to interference with the fusion. Post-surgery, the patient reports a leg length discrepancy contributing to pain and affecting mobility. Nerve damage presents with numbness and tingling in the left leg and buttock, particularly at night, managed with gel patches in his shoes. 40 pills expected, 41 presented. Pain Description - Onset and Timing: Persistent since spinal fusion surgery. - Quality and Character: Stiffness and discomfort, with numbness and tingling in the left leg and buttock. - Primary Location: Lower back and left leg. - Exacerbating Factors: Bending forward interferes with fusion. - Relieving Factors: Gel patches in shoes for numbness and tingling. - Interference with Activities: Difficulty bending and mobility issues due to leg length discrepancy. Physical Exam - Appears afebrile. - Alert and oriented. - Mood and affect appropriate. - Follows and participates in conversation appropriately. Pain Management - Affect: Pain impacts sleep and mobility. - Analgesia: Uses [id number]-mmx-[id number] pain medications and gel patches. - Adverse Effects: None reported from current pain management strategies. - Activities of Daily Living: Difficulty with bending and mobility due to pain and leg length discrepancy. - Aberrant Drug Related Behaviors: None reported. PFSH Medical History Pulmonary nodules HIV (human immunodeficiency virus infection) Arthritis Hiatal hernia BARDALES (dyspnea on exertion) Asthma History of MRSA infection History of blood transfusion GERD (gastroesophageal reflux disease) BPH (benign prostatic hyperplasia) [place] (hard of hearing) Numbness Dizziness Seasonal allergies HLD (hyperlipidemia) Chronic nasal congestion Surgical History (Updated 02/07/25 @ 14:26 by RAUL Comer) Hx of basal cell carcinoma excision Hx of colonoscopy (11/2024) Hx of blepharoplasty (2018) Hx of spinal surgery (2021) Social History (Updated 01/03/25 @ 13:38 by Susanne Patterson RN) Household Members: Spouse Housing: House Are you a primary health care technician to a significant other at home: No Do you presently have visiting nurse or other home services: No 75 years or older and lives alone: No Comment: vivid dreams and falls out of bed Patient Tobacco Use Status: Never used Tobacco service: No Physical Exam Vital Signs: Last Vital Signs Pulse 58 04/03/25 09:30 Resp 16 04/03/25 09:30 BP 100/60 04/03/25 09:30 Pulse Ox 97 04/03/25 09:30 Oxygen Delivery Method Room Air 04/03/25 09:30 BMI result Body Mass Index 26.6 Assessment & Plan Assessment & Plan (1) [facility] (current) use of opiate analgesic: Code(s): Z79.891 - [facility] (current) use of opiate analgesic Category: Medical (2) Failed back syndrome: Code(s): M96.1 - Postlaminectomy syndrome, not elsewhere classified Category: Medical Plan Plan Patient was informed and verbally consented to the use of an ambient scribe for clinic note documentation during this visit. 1. Spinal Fusion - Continue monitoring stiffness and discomfort. - Avoid activities that interfere with fusion, such as bending forward. - Refilled vicodin; MassPAT and pill count WNL 2. Leg Length Discrepancy - Consider orthopedic evaluation for management options. 3. Nerve Damage - Use gel patches to manage numbness and tingling. Discussion Notes During the visit, we discussed the ongoing management of pain following the spinal fusion, emphasizing the importance of avoiding activities that could interfere with the fusion, such as bending forward. We also reviewed the leg length discrepancy and its impact on mobility, considering the need for further orthopedic evaluation. The use of gel patches for managing nerve-related symptoms was advised, and the history of prosthesis infection was noted for monitoring. Patient Instructions - Avoid bending forward to prevent interference with spinal fusion. - Use gel patches in shoes to manage numbness and tingling. - Monitor for any signs of infection and report them immediately. - Consider scheduling an orthopedic evaluation for leg length discrepancy. Medications: Refilled hydrocodone-acetaminophen 5-325 mg Partial Fill upon patient request. 1 tab PO Q4-6H PRN 180 tabs 0RF pain Coding Level of Care Code Est Pt Level 3 (07574) Diagnoses intermediate manager (current) use of opiate analgesic Z79.891 Failed back syndrome M96.1
[2025-04-03 09:30] VITALS: BP 100/60; PULSE 58; RESP 16; O2SAT 97; BMI 26.6
--- OUTSIDE RECORDS SUMMARY | 2025-04-03 10:35 | XMS_ITS | Encounter Summary ---
Author Organization [facility], Address [address] [place] [address] Phone Care Team Providers Care Patent Chemist Name Role Phone Gregg Todd MD Primary Care Provider [phone] Encounter Details Date Type Department Care Team (Late st Contact Info) Description 01/16/2025 Orders Only [facility] - [facility] [address] [place] [phone] Melissa Portillo [address] [place] [phone] Social History Tobacco Use Types Packs/Day Years [...] on filedocumented in this encounter Care Teams Patent Chemist Relationship Specialty Start Date End Date Gregg Todd MD [address] [place] [id number] PCP - General Internal Medicine 01/11/25 documented as of this encounter
--- OUTSIDE RECORDS SUMMARY | 2025-04-03 10:35 | XMS_ITS | Clinical Summary ---
Author Organization [facility] Address [address] [place] [address] Care Team Providers Care Plaster Tender Name Role Phone Gregg Todd MD Primary [...] age to complete this topic Care Teams Plaster Tender Relationship Specialty Start Date End Date Gregg Todd MD PCP - General Internal Medicine 06/29/23
--- OUTSIDE RECORDS SUMMARY | 2025-04-03 10:36 | XMS_ITS | Clinical Summary ---
Author Organization LL 175 [facility] Address 175 [place] [address] Phone Care Team Providers Care Electric Refrigerator Servicer Name Role Phone Gregg Todd MD Primary Care Provider [phone] Allergies No known active allergies Medications bictegravir-emt [...] lidocaine (LIDODERM) 5 % patch 022 Active tiZANidine (ZANAFLEX) 4 mg tablet TAKE [...] 2 (two) times a day. 3 each 025 2025 Active albuterol HFA (PROAIR HFA [...] at bedtime. 90 tablet 1 025 Active omeprazole (PriLOSEC) [address] capsule TAKE 1 CAPSULE BY MOUTH EVERY DAY 90 capsule 1 025 Active fluticasone propionate (FLONASE) 50 mcg/actuation nasal spray SPRAY 1 SPRAY INTO EACH NOSTRIL TWICE A DAY 48 mL 1 025 Active tamsulosin (FLOMAX) 0.4 mg 24 hr capsule TAKE 1 CAPSULE BY MOUTH 30 MINUTES AFTER SAME MEAL EVERY DAY. 90 capsule 1 025 Active terbinafine (LamISIL) 250 mg tablet TAKE 1 TABLET BY MOUTH EVERY DAY 30 tablet 2 025 Active meclizine (ANTIVERT) 25 mg tablet TAKE 1 TABLET BY MOUTH 3 TIMES A DAY IF NEEDED FOR DIZZINESS. 90 tablet 1 025 Active aspirin 81 mg chewable tablet Chew 1 tablet (81 mg total) 1 (one) time each day. Active mupirocin (BACTROBAN) 2 % ointment APPLY SPARINGLY TO AFFECTED AREA(S) 3 TIMES A DAY 011 2024 Discontinued(T herapy completed) polyethylene glycol (Golytely) 236-22.74-6.74 -5.86 gram solution Take 4L by mouth once for one dose. May substitue any PEG. Starting at 6PM the night before your procedure drink 1 8oz glasses at your own pace until you complete half of the gallon. Finish 2nd half of the gallon 5 hours before your procedure. 4000 mL 025 2024 Discontinued bisacodyL (DULCOLAX) 5 mg EC tablet Take 2 tablets by mouth right before beginning bowel prep. See instructions provided by the office 2 tablet 025 10/16/ 2025 Discontinued Active Problems Problem Noted Date Diagnosed Date Preoperative cardiovascular examination 01/13/20 25 Assessment & Plan (01/12/2025 4:11 PM EDT): [...] the kidneys. He states he understands. Sacroiliitis ([facility] V24) 02/07/2022 Overview (04/25/2024): Last Assessment & Plan: Mr. Willson is being followed at [place] [facility] by Dr. Carreno where he [...] Encounters Date Type Department Care Team Description 03/30/2025 8:15 AM EDT Office Visit Internal Medicine [facility] 175 [facility] 200 [place] [address] Gregg Todd MD Dizziness (Primary Dx); Hypercholesterolemia; Current mild episode of major depressive disorder, unspecified whether recurrent ([facility] V24); Mild intermittent asthma without complication 03/06/2025 Telephone [facility] - [facility] 102 [address] [facility] 102 [place] [address] Diann Sousa NP 02/10/[address] [facility] [address] [phone] Beatrice Riley MA 02/07/[address] [facility] [address] [address] Beatrice Riley MA 02/07/[address] [facility] [address] [address] Beatrice Riley MA 02/07/[address] [facility] [address] [address] Beatrice Riley MA 02/03/[address] [facility] [address] [address] Beatrice Riley MA 01/20/[address] [facility] [address] [address] Beatrice Riley MA 01/16/2025 1:00 PM EDT Ancillary Procedure [facility] - [address] [place] [address] [place] [phone] Coronary artery disease due to lipid rich plaque 01/12/2025 2:10 PM EDT Consult [facility] - [address] [place] [phone] Diann Sousa NP Coronary artery disease due to lipid rich plaque (Primary Dx); Hypercholesterolemia; Preoperative cardiovascular examination; Elevated blood pressure reading 01/11/2025 Telephone Internal Medicine - [place] [address] [place] [phone] Gregg Todd MD 01/10/2025 Telephone [facility] - [address] [place] [phone] Zuleyka Escobar NP 01/06/2025 Telephone [facility] - [address] [place] [address] Gregg Todd MD 01/03/2025 Telephone Internal Medicine - [place] [address] [place] [phone] Gregg Todd MD from Last 3 Months Immunizations Immunization Administration Dates Next Due DTaP (Infanrix) 6wks to less than 7yo 07/29/2012 Hepatitis A Adult (Havrix; V aqta) 19yo and older 08/10/2015 Hepatitis B (Cecbixa-D-Dlowk , Recombivax HB-Adult) 19yo and older 02/20/2017,09/12/2016,08/15/2016 [...] disc HIV (human immunodeficiency virus infection) ([facility] V24, [facility] V28) 01/04/2019 DX:HIV (human im munodeficiency virus infection) ([facility]) Hypertension 01/04/2019 DX:Hypertension Spinal stenosis, [...] Hypertension DX:Hypertension HIV (human immunodeficiency virus infection) ([facility] V24, [facility] V28) DX:HIV (human im munodeficiency virus infection) ([facility]) Hemorrhoid Anemia Family History Medical History Relation [...] care for your loved ones. For example, early childhood education specialist or elderly care for an older [...] F) 03/30/2025 8:31 AM EDT Respiratory Rate 18 12/08/2024 9:19 AM EDT Oxygen Saturation 93% 03/30/2025 8:31 AM EDT Inhaled Oxygen Concentration - - Weight 85.7 kg (189 lb) 03/30/2025 8:31 AM EDT Height 180.3 cm (5' 11 ) 03/30/2025 8:31 AM EDT Body Mass Index 26.36 03/30/2025 8:31 AM EDT Plan of Treatment Upcoming Encounters Date Type Department Care Team (Late st Contact Info) Description 05/31/2025 2:15 PM EST Office Visit Pulmonology - [address] [phone] Felicia Sparrow MD [address] [place] [address] 09/28/2025 8:15 AM EDT Office Visit Internal Medicine - [address] [phone] Gregg Todd MD [address] [place] [address] [address] [place] [address] Health Maintenance Due Date Last Done Comments MMR Vaccines (1 of 2 - Risk 2-dose series) 02/28/1982 Pneumococcal Vaccine: 50+ Years (1 of 2 - PCV) 02/28/1983 RSV Immunization Adult Patients (1 - Risk 50-74 years 1-dose series) 02/28/2014 Hepatitis A Vaccines (2 of 2 - Risk 2-dose series) 02/08/2016 08/10/2015 Meningococcal ACWY Vaccine (2 - Risk 2-dose series) 12/09/2018 10/14/2018 Medicare Annual Wellness Visit 05/24/2022 COVID-19 Vaccine ( season) 2025 03/24/2023, 10/18/2020, 09/20/2020 Influenza Vaccine [...] AM EDT Human immunodeficiency virus (HIV) disease ([facility] V24, [facility] V28) COMPREHENSIVE METABOLIC PANEL Routine 03/06/2025 10:08 AM EDT Current mild episode of major depressive disorder, unspecified whether recurrent ([facility] V24) Hypercholesterolemia Mild intermittent asthma without complication LIPID PANEL WITH REFLEX TO DIRECT LDL Routine 03/06/2025 10:08 AM EDT Current mild episode of major depressive disorder, unspecified whether recurrent ([facility] V24) Hypercholesterolemia Mild intermittent asthma without complication THYROID STIMULATING HORMONE Routine 03/06/2025 10:08 AM EDT Current mild episode of major depressive disorder, unspecified whether recurrent ([facility] V24) Hypercholesterolemia Mild intermittent asthma without complication HIV 1 MOLECULAR STUDY QUANTITATIVE Routine 03/06/2025 10:08 AM EDT Human immunodeficiency virus (HIV) disease ([facility] V24, [facility] V28) TREPONEMA PALLIDUM ANTIBODY WITH REFLEX TO RPR AND PARTICLE AGGLUTINATION Routine 03/06/2025 10:08 AM EDT Human immunodeficiency virus (HIV) disease ([facility] V24, [facility] V28) LYMPHOCYTE T-CELL PANEL Routine 03/06/2025 10:08 AM EDT Human immunodeficiency virus (HIV) disease ([facility] V24, [facility] V28) CBC AND DIFFERENTIAL Routine 03/06/2025 10:08 AM EDT Human immunodeficiency virus (HIV) disease ([facility] V24, [facility] V28) EXTERNAL XRAY REPORT 01/17/2025 NM LEXISCAN [...] and particle agglutination (03/06/2025 10:08 AM EDT) [facility] T. Pallidum Antibodies Negative Negative LAB CHEMISTRY METHOD 03/06/2025 4:30 PM EDT [facility] Blood Venous blood specimen / Unknown Venipuncture / Unknown 03/06/2025 10:08 AM EDT 03/06/2025 10:08 AM EDT us Юлия Angel MD LAB BLOOD ORDERABLES Una tovar Result [facility] [address] [place] [address], [place] [phone] * (ABNORMAL) Lipid panel with reflex to direct LDL (03/06/2025 10:08 AM EDT) [facility] Cholesterol 187 0 - 200 mg/dL LAB CHEMISTRY METHOD 03/06/2025 3:32 PM EDT [facility] Triglycerides 188(H) 0 - 150 mg/dL LAB CHEMISTRY METHOD 03/06/2025 3:32 PM EDT [facility] HDL 53 >=40 mg/dL LAB CHEMISTRY METHOD 03/06/2025 3:32 PM EDT [facility] LDL Calculated 96 0 - 100 mg/dL LAB CHEMISTRY METHOD 03/06/2025 3:32 PM EDT [facility] Comment:Estimated LDL Calcul ated using equation: Total cholesterol - HDL cholesterol - (Triglycerides/5) VLDL Cholesterol Yovany 37.6 mg/dL LAB CHEMISTRY METHOD 03/06/2025 3:32 PM EDT [facility] Non HDL Chol. (LDL+VLDL) 134 <145 mg/dL LAB CHEMISTRY METHOD 03/06/2025 3:32 PM EDT [facility] Chol/HDL Ratio 3.5 0.0 - 4.4 LAB CHEMISTRY METHOD 03/06/2025 3:32 PM EDT [facility] Blood Venous blood specimen / Unknown Venipuncture / Unknown 03/06/2025 10:08 AM EDT 03/06/2025 10:08 AM EDT us Gregg Todd MD LAB BLOOD ORDERABLES Final Resul t [facility] [address] [place] [address], [place] [phone] * (ABNORMAL) CBC auto differential (03/06/2025 10:08 AM EDT) WBC 5.8 4.8 - 10.8 K/mcL LAB HEMETOLOGY METHOD 03/06/2025 2:10 PM EDT [facility] RBC 4.60 4.50 - 5.50 M/mcL LAB HEMETOLOGY METHOD 03/06/2025 2:10 PM EDT [facility] Hemoglobin 13.6 13.5 - 17.5 g/dL LAB HEMETOLOGY METHOD 03/06/2025 2:10 PM EDT [facility] Hematocrit 42.6 42.0 - 54.0 % LAB HEMETOLOGY METHOD 03/06/2025 2:10 PM EDT [facility] MCV 93.4 79.0 - 98.0 FL LAB HEMETOLOGY METHOD 03/06/2025 2:10 PM EDT [facility] MCH 29.8 27.0 - 32.0 pcg LAB HEMETOLOGY METHOD 03/06/2025 2:10 PM EDT [facility] MCHC 31.9(L) 32.0 - 37.0 g/dL LAB HEMETOLOGY METHOD 03/06/2025 2:10 PM EDT [facility] RDW 14.1 11.0 - 15.0 % LAB HEMETOLOGY METHOD 03/06/2025 2:10 PM EDT [facility] Platelets 265 130 - 400 K/mcL LAB HEMETOLOGY METHOD 03/06/2025 2:10 PM EDT [facility] MPV 11.2(H) 7.0 - 11.0 FL LAB HEMETOLOGY METHOD 03/06/2025 2:10 PM EDT [facility] NRBC 0.0 <1.0 % LAB HEMETOLOGY METHOD 03/06/2025 2:10 PM EDT [facility] NRBC Absolute 0.00 <0.10 K/mcL LAB HEMETOLOGY METHOD 03/06/2025 2:10 PM EDT [facility] Neutrophils Relative 57.4 % LAB HEMETOLOGY METHOD 03/06/2025 2:10 PM EDT [facility] Lymphocytes Relative 28.9 % LAB HEMETOLOGY METHOD 03/06/2025 2:10 PM EDT [facility] Monocytes Relative 11.2 % LAB HEMETOLOGY METHOD 03/06/2025 2:10 PM EDT [facility] Eosinophils Relative 1.7 % LAB HEMETOLOGY METHOD 03/06/2025 2:10 PM EDT [facility] Basophils Relative 0.5 % LAB HEMETOLOGY METHOD 03/06/2025 2:10 PM EDT [facility] Immature Granulocytes Relative 0.3 % LAB HEMETOLOGY METHOD 03/06/2025 2:10 PM EDT [facility] Neutrophils Absolute 3.33 1.50 - 7.00 K/mcL LAB HEMETOLOGY METHOD 03/06/2025 2:10 PM EDT [facility] Lymphocytes Absolute 1.68 1.00 - 5.00 K/mcL LAB HEMETOLOGY METHOD 03/06/2025 2:10 PM EDT [facility] Monocytes Absolute 0.65 0.20 - 1.00 K/[facility] LAB HEMETOLOGY METHOD 03/06/2025 2:10 PM EDT [facility] Eosinophils Absolute 0.10 0.00 - 0.50 K/mcL LAB HEMETOLOGY METHOD 03/06/2025 2:10 PM EDT [facility] Basophils Absolute 0.03 0.00 - 0.20 K/mcL LAB HEMETOLOGY METHOD 03/06/2025 2:10 PM EDT [facility] Immature Granulocytes Absolute 0.02 0.00 - 0.03 K/[facility] LAB HEMETOLOGY METHOD 03/06/2025 2:10 PM EDT [facility] Blood Venous blood specimen / Unknown Venipuncture / Unknown 03/06/2025 10:08 AM EDT 03/06/2025 10:08 AM EDT us Юлия Angel MD LAB BLOOD ORDERABLES Una tovar Result [facility] [address] [place] [address], * Lymphocyte T-cell panel (03/06/2025 10:08 AM EDT) CD4 680 426 - 1,776 cells/mcL 03/10/2025 9:23 AM EDT [facility] CD8 314 161 - 838 cells/mcL 03/10/2025 9:23 AM EDT [facility] CD4/CD8 Ratio 2.17 0.90 - 4.90 03/10/2025 9:23 AM EDT [facility] CD4 % 48 33 - 64 % 03/10/2025 9:23 AM EDT [facility] CD8 % 22 10 - 39 % 03/10/2025 9:23 AM EDT [facility] Blood Venous blood specimen / Unknown Venipuncture / Unknown 03/06/2025 10:08 AM EDT 03/06/2025 10:08 AM EDT us Юлия Angel MD LAB MOLECULAR DIAGNOSTICS ORDERABLES Final Result [facility] [address] [place] [address], [place] [phone] * (ABNORMAL) HIV 1 molecular study quantitative (03/06/2025 10:08 AM EDT) Pathologist [facility] HIV-1 RNA Interpretation Detected (A) Not Detected LAB MOLECULAR DIAGNOSTICS METHOD 03/07/2025 2:53 PM EDT [facility] HIV-1 RNA Copies <20 <20 copies/mL LAB MOLECULAR DIAGNOSTICS METHOD 03/07/2025 2:53 PM EDT [facility] Comment:HIV RNA detected but below the limit of quantitation. Unable to report quantitative results <20 copies/mL. HIV-1 RNA Log <1.30 <1.30 Log 10 copies/mL LAB MOLECULAR DIAGNOSTICS METHOD 03/07/2025 2:53 PM EDT [facility] Blood Venous blood specimen / Unknown Venipuncture / Unknown 03/06/2025 10:08 AM EDT 03/06/2025 10:08 AM EDT Юлия Angel MD LAB BLOOD ORDERABLES Una l Result [facility] [address] [place] [address], [place] [phone] * Thyroid stimulating hormone (03/06/2025 10:08 AM EDT) [facility] TSH 2.33 0.40 - 4.00 mcIU/mL LAB CHEMISTRY METHOD 03/06/2025 4:19 PM EDT [facility] Blood Venous blood specimen / Unknown Venipuncture / Unknown 03/06/2025 10:08 AM EDT 03/06/2025 10:08 AM EDT us Gregg Todd MD LAB BLOOD ORDERABLES Final Resul t [facility] [address] [place] [address], [place] [phone] * (ABNORMAL) Comprehensive metabolic panel (03/06/2025 10:08 AM EDT) [facility] Sodium 138 133 - 145 mmol/L LAB CHEMISTRY METHOD 03/06/2025 3:34 PM [facility] Potassium 5.2 3.5 - 5.5 mmol/L LAB CHEMISTRY METHOD 03/06/2025 3:34 PM [facility] Chloride 107 96 - 110 mmol/L LAB CHEMISTRY METHOD 03/06/2025 3:34 PM [facility] CO2 27 21 - 32 mmol/L LAB CHEMISTRY METHOD 03/06/2025 3:34 PM [facility] Anion Gap 4 3 - 11 LAB CHEMISTRY METHOD 03/06/2025 3:34 PM [facility] Glucose 93 70 - 100 mg/dL LAB CHEMISTRY METHOD 03/06/2025 3:34 PM [facility] BUN 19 5 - 25 mg/dL LAB CHEMISTRY METHOD 03/06/2025 3:34 PM [facility] Creatinine 1.08 0.70 - 1.30 mg/dL LAB CHEMISTRY METHOD 03/06/2025 3:34 PM [facility] eGFR 78 >=60 mL/min/1. 73m2 LAB CHEMISTRY METHOD 03/06/2025 3:34 PM [facility] Comment:Calculation based on the Chronic Kidney Disease Epidemiology Collaboration (CKD-EPI) equation refit without adjustment for race. BUN/Creatinine Ratio 17.6 LAB CHEMISTRY METHOD 03/06/2025 3:34 PM T [facility] Calcium 9.7 8.5 - 10.5 mg/dL LAB CHEMISTRY METHOD 03/06/2025 3:34 PM [facility] AST (SGOT) 18 10 - 42 unit/L LAB CHEMISTRY METHOD 03/06/2025 3:34 PM [facility] ALT (SGPT) 25 10 - 60 unit/L LAB CHEMISTRY METHOD 03/06/2025 3:34 PM [facility] Alkaline Phosphatase 164(H) 42 - 121 unit/L LAB CHEMISTRY METHOD 03/06/2025 3:34 PM [facility] Total Protein 7.5 6.0 - 8.0 g/dL LAB CHEMISTRY METHOD 03/06/2025 3:34 PM [facility] Albumin 4.3 3.2 - 5.0 g/dL LAB CHEMISTRY METHOD 03/06/2025 3:34 PM [facility] Total Bilirubin 0.5 0.0 - 1.4 mg/dL LAB CHEMISTRY METHOD 03/06/2025 3:34 PM [facility] Blood Venous blood specimen / Unknown Venipuncture / Unknown 03/06/2025 10:08 AM EDT 03/06/2025 10:08 AM EDT us Gregg Todd MD LAB BLOOD ORDERABLES Final Resul t [facility] [address] [place] [address], [place] [phone] * External Xray Report (01/17/2025) Anatomical Region [...] GEMUSE QTc 391 ms GEMUSE P Wave [place] 44 degrees GEMUSE R [place] 39 degrees GEMUSE T [place] 50 degrees GEMUSE ECG Interpretation Sinus bradycardia Otherwise normal ECG When compared with ECG of 02-DEC-2021 12:45, No significant change was found Confirmed by MD Tamez Christopher ([id number]) on 01/12/2025 3:58:34 PM GEMUSE 01/12/2025 2:06 PM EDT 01/12/2025 3:58 PM EDT Diann Sousa NATURAL GAS TECHNICIAN ECG ORDERABLES Final Result GEMUSE * COLONOSCOPY Anesthesia - MAC; [facility] ENDOSCOPY (12/08/2024 8:58 AM EDT) Anatomical Region Laterality Modality Other 12/08/2024 8:30 AM EDT Impressions 12/08/2024 8:59 AM EDT - Internal hemorrhoids. - Diverticulosis in the sigmoid colon. - No specimens collected. Recommendation: - Use fiber, for example Citrucel, Fibercon, Konsyl or Metamucil. - Repeat colonoscopy in 10 years for screening purposes. Narrative 12/08/2024 8:59 AM EDT [facility] Patient Name: Licha Willson Procedure [...] or abscess without bleeding CPT copyright 2020 [employer]. All rights reserved. The codes documented in this report are preliminary and upon cuff cutter review may be revised to meet current compliance requirements. Alok Mccormack MD 12/08/2024 8:59:00 AM This report has been signed electronically.Alok Mccormack MD Number of Addenda: 0 Note Initiated On: 12/08/2024 8:30 AM Scope In: Scope Out: Endoscopy Department at [facility] - [address] [place] [phone] Procedure Note Alok Mccormack MD - 12/08/2024 [facility] Patient Name: Licha Willson Procedure [...] or abscess without bleeding CPT copyright 2020 [employer]. All rights reserved. The codes documented in this report are preliminary and upon cuff cutter reviewmay be revised to meet current compliance requirements. Alok Mccormack MD 12/08/2024 8:59:00 AM This report has been signed electronically.Alok Mccormack MD Number of Addenda: 0 Note Initiated On: 12/08/2024 8:30 AM Scope In: Scope Out: Endoscopy Department at [facility] - [address] [place] [phone] IMPRESSION: - Internal hemorrhoids. - Diverticulosis in [...] LAB CHEMISTRY METHOD 08/23/2024 12:18 PM EDT [facility] Hepatitis A Antibody IgM Negative Negative LAB CHEMISTRY METHOD 08/23/2024 12:18 PM EDT [facility] Hep B Core IgM Negative Negative LAB CHEMISTRY METHOD 08/23/2024 12:18 PM EDT [facility] Hepatitis C Antibody Negative Negative LAB CHEMISTRY METHOD 08/23/2024 12:18 PM EDT [facility] Blood Venous blood specimen / Unknown Venipuncture / Unknown 08/23/2024 9:33 AM EDT 08/23/2024 10:35 AM EDT Alok Mccormack MD LAB BLOOD ORDERABLES Final Resul t [facility] [address] [place] [address], from Last 3 Months or Most Recently Relevant to Health Maintenance Insurance [employer] [place] - [place] Care Teams Electric Refrigerator Servicer Relationship Specialty Start Date End Date Gregg Todd MD [address] [facility] [address] [place] [address] PCP - General Internal Medicine 04/17/21
--- OUTSIDE RECORDS SUMMARY | 2025-04-03 10:36 | XMS_ITS | Clinical Summary ---
Author Organization [facility], Address [address] [place] [address] Phone Care Team Providers Care Head Knitting Machine Fixer Name Role Phone Gregg Todd MD Primary Care Provider [phone] Allergies No known active allergies Medications traMADol [...] Plan: Mr. Willson is being followed at [facility] by Dr. Carreno where he [...] Visit [facility] [address] [place] [address] [place] [address] Arya Steinberg MD Degeneration of lumbar intervertebral disc (Primary Dx) 01/16/2025 Orders Only [facility] [address] [place] [address] [place] [address] Melissa Portillo from Last 3 Months Social [...] 08/15/2016 Influenza Vaccine (#1) 2025 04/22/2021 Insurance [employer] Member Subscriber Plan / Payer (Ef fective 2023-Present) Name:Roni Willson Relation to Subscriber:Self Name:Roni Willson Payer ID:[id number] (NAIC) Group ID:[id number] Type:Not on file Address: [address] [id number] Medicaid [place] Care Teams Head Knitting Machine Fixer Relationship Specialty Start Date End Date Gregg Todd MD [address] [place] [phone] PCP - General Internal Medicine 01/11/25
== END 2025-04-03 10:03 | disposition home or self-care (01) ==
LOC: HO.PMC 09:28
PROVIDERS: PCP Internal Medicine; Visit Provider Internal Medicine
DX: Z79.891 Long term (current) use of opiate analgesic (principal); M96.1 Postlaminectomy syndrome, not elsewhere classified
CPT/HCPCS: 99213

== ENCOUNTER → 2025-04-03 09:28 | Outpatient (BNVA) | payer MEDICARE, MEDICAID, SELFPAY | PROVIDERS: PCP Internal Medicine; Visit Provider Internal Medicine | DX: M96.1 Postlaminectomy syndrome, not elsewhere classified (principal); M21.752 Unequal limb length (acquired), left femur; Z79.891 Long term (current) use of opiate analgesic; Z51.81 Encounter for therapeutic drug level monitoring | CPT/HCPCS: 99212 ==

== ENCOUNTER 2025-05-01 08:58 | Outpatient (AMB) | payer MEDICARE, MEDICAID, SELFPAY ==
--- NOTE | 2025-05-01 09:03 | MHC.OFFVIS ---
Vital Signs 05/01/25 09:04 Height 5 ft 11 in Weight 199 lb BMI 27.8 BP 115/70 Blood Pressure Location Lt brachial Position Sitting Respiration 16 Pulse 77 Pulse Source Pulse Oximeter Pulse Oximetry (%) 96 Oxygen Delivery Method Room Air Intake Visit Reasons: Pill Count Intake Note: Pt states he last took vicodin 05/01/25 @ 7am Jewel Staker Required: No Allergies No Known Allergies Allergy (Verified 05/01/25 09:05) Medication List - Last Reconciled 05/01/25 by Loida Louie LPN albuterol sulfate 90 mcg/actuation 2 puffs inhalation Q6H PRN beclomethasone dipropionate 80 mcg/actuation (Qvar RediHaler) 2 inhalations inhalation BID mayttcuwe-zjpsytop-nehqprt ala 50-200-25 mg (Biktarvy) 1 tab PO DAILY celecoxib 100 mg PO BID PRN doxycycline hyclate 100 mg PO DAILY PRN fluticasone propionate 50 mcg/actuation 1 spray intranasal BID gabapentin 600 mg PO QID hydrocodone-acetaminophen 5-325 mg 1 tab PO Q4-6H PRN hydroxyzine HCl 25 mg PO DAILY lidocaine 5% 1 patch topical DAILY 30 days meclizine 25 mg PO TID PRN mupirocin 2% 1 appl topical DAILY PRN naloxone 4 mg/actuation (Narcan) 4 mg intranasal Q2M PRN omeprazole 40 mg PO DAILY simvastatin 20 mg PO BEDTIME tamsulosin 0.4 mg PO DAILY tizanidine 8 mg PO BEDTIME PRN HPI HPI Pill Count: Details: History of Present Illness The patient is a 60-year-old male presenting with a pill count and refill, and swelling in the thigh area. The patient reports swelling in the left hypogastric area, which has been present for a couple of weeks. The swelling is located near a previous surgical incision, raising concern for a possible incisional hernia. The patient experiences neuropathic pain characterized by burning and tingling in the legs, worsening throughout the day. He is currently taking gabapentin, 600 mg, five times daily, but reports limited relief from the medication. Pain Description - Onset and Timing: Pain worsens throughout the day, with no pain upon waking. - Quality and Character: Burning and tingling sensation in the legs. - Exacerbating Factors: Pain increases with prolonged standing and certain movements. - Relieving Factors: Limited relief with gabapentin. Physical Exam - Abdominal: Swelling in the left hypogastric area ?incisional hernia. Results Pain Management - Affect: The patient reports frustration with the persistent pain and limited relief from current medication. - Analgesia: Currently taking gabapentin 600 mg five times daily with limited effectiveness. - Adverse Effects: No specific adverse effects from gabapentin reported. - Activities of Daily Living: Pain interferes with standing and certain movements, impacting daily activities. - Aberrant Drug Related Behaviors: No aberrant behaviors noted; pill count was consistent. PFSH Medical History (Updated 05/02/25 @ 15:17 by RAUL Comer) Pulmonary nodules HIV (human immunodeficiency virus infection) Arthritis Hiatal hernia BARDALES (dyspnea on exertion) Asthma History of MRSA infection History of blood transfusion GERD (gastroesophageal reflux disease) BPH (benign prostatic hyperplasia) [place] (hard of hearing) Numbness Dizziness Seasonal allergies HLD (hyperlipidemia) Chronic nasal congestion Surgical History (Updated 02/07/25 @ 14:26 by RAUL Comer) Hx of basal cell carcinoma excision Hx of colonoscopy (11/2024) Hx of blepharoplasty (2018) Hx of spinal surgery (2021) Social History (Updated 01/03/25 @ 13:38 by Susanne Patterson RN) Household Members: Spouse Housing: House Are you a primary healthcare administration internship to a significant other at home: No Do you presently have visiting nurse or other home services: No 75 years or older and lives alone: No Comment: vivid dreams and falls out of bed Patient Tobacco Use Status: Never used Tobacco service: No Physical Exam Vital Signs: Last Vital Signs Pulse 77 05/01/25 09:04 Resp 16 05/01/25 09:04 BP 115/70 05/01/25 09:04 Pulse Ox 96 05/01/25 09:04 Oxygen Delivery Method Room Air 05/01/25 09:04 BMI result Body Mass Index 27.8 Assessment & Plan Assessment & Plan (1) 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 1. Incisional Hernia - Recommend follow-up with spine surgeon to assess the swelling and consider referral to general surgery. 2. Neuropathic Pain - Continue current gabapentin regimen; consider alternative pain management strategies if ineffective. 3. Chronic Narcotics - Pill count consistent. Refill sent for 1 month. Discussion Notes I discussed with the patient the possibility of an incisional hernia and recommended a follow-up with the spine surgeon to evaluate the swelling further. We also reviewed the current pain management plan, emphasizing the importance of continuing gabapentin and considering other options if pain persists. Patient Instructions - Follow up with the spine surgeon to evaluate the swelling in the left hypogastric area. - Continue taking gabapentin as prescribed and monitor pain levels. - Report any changes in symptoms or new concerns to the clinic. Medications: Refilled hydrocodone-acetaminophen 5-325 mg Partial Fill upon patient request. 1 tab PO Q4-6H PRN 180 tabs 0RF pain Coding Level of Care Code Est Pt Level 4 (60148) Diagnoses penitentiary (current) use of opiate analgesic Z79.891 S/P lumbar fusion Z98.1 Abdominal hernia K46.9
[2025-05-01 09:04] VITALS: BP 115/70; PULSE 77; RESP 16; O2SAT 96; BMI 27.8
== END 2025-05-01 09:45 | disposition home or self-care (01) ==
LOC: HO.PMC 08:59
PROVIDERS: PCP Internal Medicine; Visit Provider Internal Medicine
DX: Z79.891 Long term (current) use of opiate analgesic (principal); Z98.1 Arthrodesis status; K46.9 Unspecified abdominal hernia without obstruction or gangrene
CPT/HCPCS: 99214

== ENCOUNTER → 2025-05-01 08:58 | Outpatient (BNVA) | payer MEDICARE, MEDICAID, SELFPAY | PROVIDERS: PCP Internal Medicine; Visit Provider Internal Medicine | DX: K46.9 Unspecified abdominal hernia without obstruction or gangrene (principal); Z98.1 Arthrodesis status; Z79.891 Long term (current) use of opiate analgesic | CPT/HCPCS: 99212 ==

== ENCOUNTER 2025-05-02 14:23 | Outpatient (AMB) | payer MEDICARE, MEDICAID, SELFPAY ==
--- NOTE | 2025-05-02 14:34 | A.SPINEOV_ITS ---
Intake Visit Reasons: evaluate incision site SX 01/17/25 Intake Note: Mr. Willson is here today to have an incision evaluation. Diamond Grader Required: No Allergies No Known Allergies Allergy (Verified 05/01/25 09:05) Assessment & Plan Assessment & Plan (1) Abdominal hernia: Code(s): K46.9 - Unspecified abdominal hernia without obstruction or gangrene Category: Medical Plan Roni is a pleasant 60-year-old male who comes in today for follow up after having L2-3, L3-4, L4-5 and L5-S1 lumbar fusion. To recap he was last evaluated in clinic on 03/21 and continued to report some low back and left leg pain. He reports the bulk of this pain has largely resolved aside from some left sided low back pain. Today he is primarily concerned with 2 issues. The first issue is that he has developed a soft mass that appears to be protruding near his left- sided OLIF incision site. The 2nd issue is that he has fairly severe burning/electric pain near his right gastrocnemius that shoots down into the bottom of his foot. He reports this has been present as a low-grade ache since his surgery, but has significantly worsened over the course of the last 1 month or so. He denies any swelling/changes in call her to this area of the lower extremity, and denies any pain to direct palpation. He feels this is a deep pain that feels like nerve pain. On examination the patient is right lower extremity appears normal compared to the left. I examined his incision sites which are all closed and well healed. There is a notable bulge that is about 3-4 cm in diameter noted just medial to his inferior OLIF incision site. I believe the patient is most likely suffering from an abdominal hernia. This may be protruding down toward the inguinal canal as it does track inferiorly. I would like to have the patient evaluated by our colleagues in General surgery. In terms of his right lower extremity nerve pain, I will discuss this with Dr. Valdovinos tomorrow to see if he would prefer MRI imaging to evaluate for impingement, which may be confounded by metallic artifact, or prefer to have him have a CT scan completed, which Dr. Valdovinos still is able to visualize nerve structures on. Duane Valdovinos MD,PhD [facility] Orders: Referrals General Surgery Referral K46.9 - Unspecified abdominal hernia without obstruction or gangrene Coding Level of Care Code Est Pt Level 2 (62841) Diagnoses Abdominal hernia K46.9
== END 2025-05-02 15:13 | disposition home or self-care (01) ==
LOC: HO.HNS 14:23
PROVIDERS: PCP Internal Medicine; Visit Provider Physician Assistant
DX: K46.9 Unspecified abdominal hernia without obstruction or gangrene (principal)
CPT/HCPCS: 99212

== ENCOUNTER → 2025-05-02 14:23 | Outpatient (BNVA) | payer MEDICARE, MEDICAID, SELFPAY | PROVIDERS: PCP Internal Medicine; Visit Provider Physician Assistant | DX: Z47.89 Encounter for other orthopedic aftercare (principal); K46.9 Unspecified abdominal hernia without obstruction or gangrene; M54.50 Low back pain, unspecified; M79.605 Pain in left leg; Z98.1 Arthrodesis status | CPT/HCPCS: 99212 ==

== ENCOUNTER 2025-05-16 08:55 | Outpatient (AMB) | payer MEDICARE, MEDICAID, SELFPAY ==
[2025-05-16 08:56] VITALS: BP 138/75; PULSE 55; BMI 28.4
--- NOTE | 2025-05-16 08:56 | A.OFFVIS_ITS ---
Vital Signs 05/16/25 08:56 Height 5 ft 11 in Weight 204 lb BMI 28.4 BP 138/75 Blood Pressure Location Rt brachial Position Sitting Pulse 55 Intake Visit Reasons: abd hernia Intake Note: Patient referred by Duane Castillo PA-C for assessment of abdominal hernia. First noticed 1m ago. Reports recent lumbar fusion surgery January 2025. Still in healing process. Experiencing pain that spreads down to feet. Patient c/o: sharp pains, hernia bulges out, appears to be enlarging. Aquatic Biologist Required: No Accompanied by: Self / Same As Patient Allergies No Known Allergies Allergy (Verified 05/16/25 09:03) Medication List - Last Reconciled 05/16/25 by Dale Horn MD albuterol sulfate 90 mcg/actuation 2 puffs inhalation Q6H PRN beclomethasone dipropionate 80 mcg/actuation (Qvar RediHaler) 2 inhalations inhalation BID dycnxavkr-afoosxmv-epomrwp ala 50-200-25 mg (Biktarvy) 1 tab PO DAILY doxycycline hyclate 100 mg PO DAILY PRN fluticasone propionate 50 mcg/actuation 1 spray intranasal BID gabapentin 600 mg PO QID hydrocodone-acetaminophen 5-325 mg 1 tab PO Q4-6H PRN hydroxyzine HCl 25 mg PO DAILY lidocaine 5% 1 patch topical DAILY 30 days meclizine 25 mg PO TID PRN mupirocin 2% 1 appl topical DAILY PRN naloxone 4 mg/actuation (Narcan) 4 mg intranasal Q2M PRN omeprazole 40 mg PO DAILY simvastatin 20 mg PO BEDTIME tamsulosin 0.4 mg PO DAILY tizanidine 8 mg PO BEDTIME PRN HPI Comments Details: Patient reports he recently had a anterior albeit retroperitoneal approach for lumbar spine surgery x2. His left lower quadrant incision site became somewhat uncomfortable a few weeks later and he feels he may since ?a bulge? in the region. He denies any obstructive symptoms. He reports pain with twisting/turning and other movements and sleeps with a pillow propping up that aspect of his abdomen. He denies any other history of abdominal surgery or instrumentation. [facility] Medical History Pulmonary nodules HIV (human immunodeficiency virus infection) Arthritis Hiatal hernia BARDALES (dyspnea on exertion) Asthma History of MRSA infection History of blood transfusion GERD (gastroesophageal reflux disease) BPH (benign prostatic hyperplasia) [place] (hard of hearing) Numbness Dizziness Seasonal allergies HLD (hyperlipidemia) Chronic nasal congestion Surgical History Hx of basal cell carcinoma excision Hx of colonoscopy (11/2024) Hx of blepharoplasty (2018) Hx of spinal surgery (2021) Social History Household Members: Spouse Housing: House Are you a primary outdoor emergency care technician to a significant other at home: No Do you presently have visiting nurse or other home services: No 75 years or older and lives alone: No Comment: vivid dreams and falls out of bed Patient Tobacco Use Status: Never used Tobacco service: No Review of Systems Const All systems reviewed & are unremarkable except as noted in HPI and below Physical Exam Vital Signs: Last Vital Signs Pulse 55 05/16/25 08:56 BP 138/75 05/16/25 08:56 BMI result Body Mass Index 28.4 Const General: cooperative, healthy appearing, comfortable, no acute distress and well developed Orientation/consciousness: oriented to person, oriented to place and oriented to time HEENT Head: Yes normal to inspection, Yes normocephalic and Yes atraumatic Ears: hearing grossly normal bilaterally General nose exam: Normal external nose present Face and sinus: Yes normal facial exam Eyes General: appearance normal, both eyes and all related structures Pupils: Equal, round and reactive pupils present EOM: EOMs intact bilaterally Neck Neck: Yes normal visual inspection Chest Chest palpation & inspection: normal inspection of the chest Resp Effort & Inspection: normal respiratory effort and able to speak in complete sentences Cardio Rate: regular rate Rhythm: regular rhythm GI Other: To scars that are oblique in the left lateral and left lower quadrants of the patient's abdomen. The upper left lateral scars approximately 5 cm in length. The left lower quadrant scar is approximately 8 cm in length. The lower scars problematic 1 in just medial to the anterior superior iliac spine. There is some irregularity associated with the scar particularly medial to it and this could represent a hernia but it is difficult to say. Be that as it may it is an unusual location and determination of the size and what is involved in the hernia would be helpful for any operative endeavor to fix it. There are no other scars and no other hernias appreciated. There was no evidence of hepatosplenomegaly. Skin General skin exam: no rashes or lesions noted Neuro General: oriented to person, oriented to place and oriented to time Cranial nerves: Yes Equal, round and reactive pupils present Assessment & Plan Assessment & Plan (1) Abdominal hernia: Code(s): K46.9 - Unspecified abdominal hernia without obstruction or gangrene Category: Medical Plan: I told the patient's presentation was possibly consistent with a hernia however it is difficult to say. I think radiographic correlation would be helpful for both determining the presence of a hernia versus abdominal wall eventration. Imaging would also be helpful for operative planning of her hernia does exist. He does have a CT scan of his abdomen and pelvis that is already been scheduled and we will review the results of that scan and then have him return. In the meantime he is encouraged to contact us should he have any questions or problems and to avoid any heavy lifting or vigorous physical exercise. He said he was happy with that plan. Coding Level of Care Code New Pt Level 3 (06566) Diagnoses Abdominal hernia K46.9 Time Spent (min) 30 Comment Patient visit time as well as record review and coordination of care
--- OUTSIDE RECORDS SUMMARY | 2025-05-16 09:15 | XMS_ITS | Clinical Summary ---
Author Organization [facility] Address [address] [place] [address] Care Team Providers Care Nursing Staff Development Coordinator Name Role Phone Gregg Todd MD [...] age to complete this topic Care Teams Nursing Staff Development Coordinator Relationship Specialty Start Date End Date Gregg Todd MD PCP - General Internal Medicine 06/29/23
--- OUTSIDE RECORDS SUMMARY | 2025-05-16 09:15 | XMS_ITS | Data Portability ---
Author Organization [place] [facility], Allergy Address [address] [address] Care Team Providers Care Fret Saw Operator Name Role Phone HARIKA HOLLINS Primary [...] (0.03 %) nasal spray 2024 025 [email or web address] [id number], [address] [place], [address], 10/12/2024 11:09:37 Patient TargetsNo targets recorded. Patient Instructions Encounter Date Encounter Id Patient Instructions Last Modified By Organization Details Last Modified Time 07/11/2024 [id number] Note patient with chronic nasal obstruction for at least 1 year. He has been using hskq-mbt-cdiamnf decongestant preparations several times per day. Examination shows a septal deviation of the right side limiting endoscopy but no evidence of polyps. Suggest warm saline irrigations twice daily followed by ipratropium bromide 2 sprays each nostril 3 times daily. I will have him dilute the oxymetazoline or which ever euzr-rue-fxigrrl decongestant preparation he is using 50% every [...] contr ast No observ ation record ed. ST[facility] [place] [address] [facility] [address], [place], [address], 08/17/2024 20:00:18 10/13/19 audio gram No observ ation record ed. BARCODE Not Available 2024 12:44:59 Result Notes None recorded. Problems Name Problem SNOMED Code Status Onset Date Resolution Date Notes Provider Name and Address Organization Details Recorded Time Bilateral tinnitus 25215675531 02 Active 2021 Tinnitus, bilateral ; Note: Date Diagnosed : 02/03/2022 3:11 PM (H93.13) Not Available [facility] 4 02:53:58 Disorder of smell 011124942 Active 2021 Other disturban kris of smell and taste; Note: Date Diagnosed : 02/03/2022 3:11 PM (R43.8) Not Available [facility] 4 02:54:02 Disorder of taste 999955055 Active 2021 Other disturban kris of smell and taste; Note: Date Diagnosed : 02/03/2022 3:11 PM (R43.8) Not Available [facility] 4 02:54:02 Sensorine ural hearing loss of bilateral ears 665403583 Active 2021 Sensorine ural hearing loss, bilateral ; Note: Date Diagnosed : 02/03/2022 3:11 PM (H90.3) Not Available [facility] 4 02:54:01 Deviated nasal septum 779930879 Active 2024 RIC ALBARADO MD [address] [place] [address], [place], [address] , [facility] - [facility] 5 11:16:48 Chronic rhinitis 66527382 Active 2024 RIC ALBARADO MD [address], [place], [address] , [facility] 5 14:49:12 Vasomotor rhinitis 1145767 Active 2024 RIC ALBARADO MD [address], [place], [address] , [facility] - [facility] 5 14:49:16 Chronic sinusitis 95572600 Active 2024 RIC ALBARADO MD [address], [place], [place], [address] , [facility] - [facility] 5 09:02:12 Nasal congestio n 53894622 Active 2024 RIC ALBARADO MD [address] [place], [place], [address] , [facility] - [facility] 11:16:52 Problem Notes None recorded. Procedures Surgical History Date Name Laterality Status Provider Name and Address Organization Details Recorded Time Air & Speech Audio with Tymps - 74633, 84435 & 69373 completed LATESHA SÁNCHEZ MA, CCC-A [address] [facility], [place], [address], [facility] - [facility] 10/12/2024 11:00:09 JMSNasal/Sinus Endoscopy completed RIC CUTLER MD [address] [facility], [place], [address], [facility] - [facility] 07/11/2024 14:48:02 Imaging Results None recorded. Procedure [...] mg tablet 07/07 completed Medicati on ID: [id number] B rand Name: methocar bamol Se nd [...] mg tablet 07/07 completed Medicati on ID: [id number] B rand Name: meloxica m Send Method: E-Prescr ibed Sub s Allowed: subs OK [facility] : meloxica m Not Available [...] mg tablet 10/12 completed Medicati on ID: [id number] B rand Name: hydrocod one-acet aminophe n Send Method: E-Prescr ibed Sub s Allowed: subs OK [facility] : hydrocod one-acet aminophe n [...] mg tablet 10/12 completed Medicati on ID: [id number] B rand Name: hydroxyz ine HCl Send Method: E-Prescr ibed Sub s Allowed: subs OK [facility] : hydroxyz ine HCl Not [...] Updated DateTime 07/11/2024 177.8 cm 28 kg/m2 49072.51 g Lea Sierra [facility] 07/11/2024 14:38:46 Date Recorded Body height Body mass index (BMI) Body weight Systolic And Diastolic Provider Name and Address Organization Details Last Updated DateTime 10/12/2024 177.8 cm 28 kg/m2 41815.51 g 122/74 mm[Hg] Beatrice Lynn [facility] 10/12/2024 11:08:18 Social History None recorded. Functional Status None recorded. Mental Status None recorded. Family History Nothing Reported. Medical History Condition Response Allergies/Hayfever N Heart Problems N Anxiety Y Tonsil Infections N Emphysema N Migraines N Thyroid Problems N Glaucoma N Developmental Delay N Depression Y COPD N Nasal or Sinus Problems Y Anemia N Immune System Disorder N Anesthesia Complications N Heart Attack (ME) N Other Skin Condition N Diabetes N [...] ICD10 Code Diagnosis IMO Codes Diagnosis Note [id number] RIC ALBARADO MD [facility] [address] [place] [address] 07/11/2024 14:12:51 07/11/2024 14:52:00 Deviated nasal septum 070401385 J34.2 Chronic rhinitis 8666310 6 J31.0 Bilateral tinnitus 71258 10770 102 H93.13 f/u with Audio [id number] RIC ALBARADO MD [facility] [address] [place] [address] 10/12/2024 10:19:45 10/12/2024 11:22:10 Bilateral tinnitus 4787430580 102 H93.13 f/u with Audio in 1 year Sensorineu ral hearing loss of bilateral ears 479665251 H90.3 Hearing stable Deviated nasal septum 12 6907588 J34.2 77354 Nasal congestion 6896455 0 R09.81 44297 At the present time the patient would [...] Gunn Member ID Guarantor Name 10/12/2024 1 [facility] - MEDICARE PREFERRED (MEDICARE REPLACEMENT HMO) [facility] Roni Willson [id number] Roni Willson 10/12/2024 2 [place]: [facility] Roni Willson [id number] Roni Willson Notes Date Note Type Note Provider Name and Address Organization Details Recorded Time 07/11/2024 text/html ROS as noted in the HPI h/o chronic bronchitis//asthma, lung nodule (RLL 3 mm), elevated right hemidiaphragm CAD, HTN, HLD, GERD, hepatitis, CKD, BPH, nephrolithiasis, HIV (dx 2019), MRSA skin infection, and anxiety with depression.Hx of bilateral tinnitusHas been using OTC decongestants for about 1 year usually twice per day or more. RIC CUTLER MD [address] [facility],[address], [address], [facility] - [facility] 07/11/2024 14:51:18 10/12/2024 text/html Patient notes persistent chronic nasal congestion. He has been off the wloa-vlf-utsukrq decongestant preparations. CT scan did not show any significant sinus disease. He feels the nasal congestion is not bad enough to warrant any intervention. He still notes bilateral tinnitus but hearing is stable. RIC CUTLER MD [address] [facility],[place] [address], [place], [address], [facility] - [facility] 10/12/2024 11:17:38
--- OUTSIDE RECORDS SUMMARY | 2025-05-16 09:16 | XMS_ITS | Data Portability ---
Author Organization [facility], Main Office Address [address] [place] [address] Assessment No assessment recorded. Plan of Treatment Reminders Order Date Submit Date Provider Last Modified By Organization Details Last Modified Time Details Appointments B20 FOLLOW UP 2024 02:00P Bret Metz MD Not available Not available Not available Lab CBC w/ diff 2024 025 [facility], [address] [place] [address], [address], 03/01/2025 12:45:04 HIV-1 RNA, quantita tive, PCR, serum or plasma 2024 025 [facility], [address] [place] [address], [address], 03/01/2025 12:45:04 RPR (rapid plasma reagin), serum 2024 025 [facility], [address] [place] [address], [address], 03/01/2025 12:45:04 T-cell regulato ry subsets panel, blood 2024 025 [facility], [address] [place] [address], [address], 03/01/2025 12:45:04 creatini ne w/ estimate d GFR (eGFR), serum or plasma 2024 025 [facility], [address] [place] [address], [address], 03/01/2025 12:45:04 AST/SGOT (asparta te aminotra nsferase ), serum or plasma [address] [place] [address] [facility], [address] [place] [address], [address], 03/01/2025 12:45:04 ALT (alanine aminotra nsferase ), serum or plasma [address] [place] [address] [facility], [address] [place] [address], 15[address], 03/01/2025 12:45:04 CBC w/ diff [address] [place] [address] [facility], [address] [place] [address], [address], 11/29/2024 10:07:15 HIV-1 RNA, quantita tive, PCR, serum or plasma [address] [place] [address] [facility], [address] [place] [address], [address], 11/29/2024 10:07:16 RPR (rapid plasma reagin), serum [address] [place] [address] [facility], [address] [place] [address], [address], 11/29/2024 10:07:16 T-cell regulato ry subsets panel, blood [address] [place] [address] [facility], [address] [place] [address], 05[address], 11/29/2024 10:07:16 creatini ne w/ estimate d GFR (eGFR), serum or plasma [address] [place] [address] [facility], [address] [place] [address], [address], 11/29/2024 10:07:16 AST/SGOT (asparta te aminotra nsferase ), serum or plasma 2024 025 [facility], [address] [facility], [facility] [address], [place], [address], 11/29/2024 10:07:16 ALT (alanine aminotra nsferase ), serum or plasma 2024 025 [facility], [address] [facility], [facility] [address], [place], [address], 11/29/2024 10:07:16 CMP, serum or plasma 2024 025 [facility], [address] [facility], [place], [address], 08/23/2024 12:07:12 lipid panel, serum 2024 025 [facility], [address] [facility], [facility] [address], [place], [address], 09/02/2024 12:33:08 amylase + lipase, serum 2024 025 [facility], [address] [facility], [facility] [address], [address], 09/02/2024 12:33:08 TSH, serum or plasma 2024 025 [facility], [address] [facility], [facility] [address], [place], [address], 09/02/2024 12:33:08 HbA1c (hemoglo bin A1c), blood 2024 025 [facility], [address] [facility], [address], [place], [address], 09/02/2024 12:33:08 CBC w/ diff 2024 025 [facility], [address] [facility], [address], [place], [address], 09/02/2024 12:33:07 HIV-1 RNA, quantita tive, PCR, serum or plasma 2024 025 [facility], [address] [facility], [facility] [address], [place], [address], 09/02/2024 12:33:07 RPR (rapid plasma reagin), serum [address] [facility], [address] [facility], [facility] [address], [place], [address], 09/02/2024 12:33:08 T-cell regulato ry subsets panel, blood [address] [facility], [address] [facility], [facility] [address], [place], [address], 09/02/2024 12:33:08 HBsAg (hepatit is B surface Ag), serum [address]24 [address] [place] [address] [facility], [address], [address], 09/02/2024 12:33:08 CBC w/ diff [address] [facility], [address] [facility], [place] [address], [place], [address], 05/20/2024 13:41:28 ALT (alanine aminotra nsferase ), serum or plasma [address] [facility], [address] [place] [address], [place], [address], 05/20/2024 13:41:28 AST/SGOT (asparta te aminotra nsferase ), serum or plasma [address] [facility], [address] [facility], [facility] [address], [place], [address], 05/20/2024 13:41:29 CT + NG DNA, PCR, unspecif ied specimen [address] [facility], [address] [facility], [facility] [address], [place], [address], 05/20/2024 13:41:29 creatini ne w/ estimate d GFR (eGFR), serum or plasma [address] [facility], [address], [address], 05/20/2024 13:41:29 hepatiti s C virus Ab, serum [address] [facility], [address], [address], 05/20/2024 13:41:29 HIV-1 RNA, quantita tive, PCR, serum or plasma 2023 [address]24 [place] [address] [facility], [address] [place] [address], [address], [address], 05/20/2024 13:41:29 RPR (rapid plasma reagin), serum [address] [facility], [address], [address], 05/20/2024 13:41:29 T-cell regulato ry subsets panel, blood 2023 0[address] [place] [address] [facility], [address] [facility], [address], [address], 05/20/2024 13:41:29 HBsAg (hepatit is B surface Ag), serum [address] [facility], [address], [address], 05/20/2024 13:41:29 Referral None recorded . Procedures None recorded . Surgeries None recorded . Imaging None recorded . Medication Orders mupiroci n 2 % topical ointment 2024 025 [facility]acy #[id number], [address] [place], [address], 02/22/2025 14:42:30 hydroxyz ine HCl 50 mg tablet 2024 025 [facility]acy #0969, [address] [facility] [place], [address], 02/22/2025 14:42:01 Biktarvy 50 mg-200 mg-25 mg tablet 2024 025 [facility] #0969, [address] [facility] [place], [address], 02/22/2025 14:42:01 Biktarvy 50 mg-200 mg-25 mg tablet 2024 025 [facility] #0969, [address] [facility] [place], [address], 11/22/2024 14:40:20 Biktarvy 50 mg-200 mg-25 mg tablet 2024 025 [facility] #0969, [address] [facility], [address], 08/22/2024 15:14:58 hydroxyz ine HCl 25 mg tablet 2023 024 [facility] #0969, [address] [facility] [place], [address], 05/13/2024 15:11:54 Biktarvy 50 mg-200 mg-25 mg tablet 2023 024 [facility] #0969, [address] [place], [address], 05/13/2024 15:09:21 mupiroci n 2 % topical ointment 2023 024 [facility]0969, [address] [facility] [place], [address], 05/30/2024 22:28:26 fluconaz ole 100 mg tablet 2023 024 [facility] #0969, [address] [facility] [place], [address], 02/10/2024 16:57:59 hydroxyz ine HCl 25 mg tablet 2023 024 [facility] #0969, [address] [place], [address], 02/10/2024 16:57:59 Biktarvy 50 mg-200 mg-25 mg tablet 2023 024 [facility] [address] [place], [address], 02/10/2024 16:57:57 mupiroci n 2 % topical ointment 2023 024 [id number] [address] [place], [address], 02/10/2024 16:57:59 Patient TargetsNo targets recorded. Patient InstructionsNo instructions recorded. Reason for Referral None Reported. Results Created Date Observation Date Name Description Value Unit Range Abnormal Flag Note LastModifiedBy Organization Detail LastModifiedTime 02/02/20 24 02/02/2024 CBC WITH AUTO DIFF WBC 6.4 x10-3 /uL 4.8-10 .8 Not Available [facility] [address] [place], [address], 02/02/2024 20:32:01 02/02/20 24 02/02/2024 CBC WITH AUTO DIFF RBC 4.3 x10-6 /uL 4.5-5. 5 low Not Available [facility] [address] [place], [address], 02/02/2024 20:32:01 02/02/20 24 02/02/2024 CBC WITH AUTO DIFF hemoglobin 13.3 g/dL 13.5-1 7.5 low Not Available [facility] [address] [place], [address], 02/02/2024 20:32:01 02/02/20 24 02/02/2024 CBC WITH AUTO DIFF hematocrit 40.9 % 42-54 low Not Available [facility] [address] [place], [address], 02/02/2024 20:32:01 02/02/20 24 02/02/2024 CBC WITH AUTO DIFF MCV 94.2 fL 79-98 Not Available [facility] [address] [place], [address], 02/02/2024 20:32:01 02/02/20 24 02/02/2024 CBC WITH AUTO DIFF MCH 30.6 pg 27-32 Not Available [facility] [address] [place], [address], 02/02/2024 20:32:01 02/02/20 24 02/02/2024 CBC WITH AUTO DIFF MCHC 32.5 g/dL 32-37 Not Available [facility] [address] [place], [address], 02/02/2024 20:32:01 02/02/20 24 02/02/2024 CBC WITH AUTO DIFF RDW 13.4 % 11-15 Not Available [facility] [address] [place], [address], 02/02/2024 20:32:01 02/02/20 24 02/02/2024 CBC WITH AUTO DIFF plt count 212 x10-3 /uL 130-40 0 Not Available [facility] [address] [place], [address], 02/02/2024 20:32:01 02/02/20 24 02/02/2024 CBC WITH AUTO DIFF mean platelet volume 11.8 fL 7-11 high Not Available [facility] [address] [place], [address], 02/02/2024 20:32:01 02/02/20 24 02/02/2024 CBC WITH AUTO DIFF NRBC % auto 0.0 % <1 Not Available [facility] [address] [place], [address], 02/02/2024 20:32:01 02/02/20 24 02/02/2024 CBC WITH AUTO DIFF neut % 60.4 % Not Available [facility] [address] [place], [address], 02/02/2024 20:32:01 02/02/20 24 02/02/2024 CBC WITH AUTO DIFF lymph % 23.4 % Not Available [facility] [address] [place], [address], 02/02/2024 20:32:01 02/02/20 24 02/02/2024 CBC WITH AUTO DIFF mono % 9.0 % Not Available [facility] [address] [place], [address], 02/02/2024 20:32:01 02/02/20 24 02/02/2024 CBC WITH AUTO DIFF eos % 6.2 % Not Available [facility] [address] [place], [address], 02/02/2024 20:32:01 02/02/20 24 02/02/2024 CBC WITH AUTO DIFF baso % 0.5 % Not Available [facility] [address] [place], [address], 02/02/2024 20:32:01 02/02/20 24 02/02/2024 CBC WITH AUTO DIFF immature granulocytes % 0.5 % Not Available [facility] [address] [place], [address], 02/02/2024 20:32:01 02/02/20 24 02/02/2024 CBC WITH AUTO DIFF NRBC # auto 0.00 x10-3 /uL <0.1 Not Available [facility] [address] [place], [address], 02/02/2024 20:32:01 02/02/20 24 02/02/2024 CBC WITH AUTO DIFF absolute neut 3.89 x10-3 /uL 1.5-7. 0 Not Available [facility] [address] [place], [address], 02/02/2024 20:32:01 02/02/20 24 02/02/2024 CBC WITH AUTO DIFF lymph # 1.51 x10-3 /uL 1-5.0 Not Available [facility] [address] [place], [address], 02/02/2024 20:32:01 02/02/20 24 02/02/2024 CBC WITH AUTO DIFF mono # 0.58 x10-3 /uL 0.2-1. 0 Not Available [facility] [address] [place], [address], 02/02/2024 20:32:01 02/02/20 24 02/02/2024 CBC WITH AUTO DIFF eos # 0.40 x10-3 /uL 0-0.5 Not Available [facility] [address] [place], [address], 02/02/2024 20:32:01 02/02/20 24 02/02/2024 CBC WITH AUTO DIFF baso # 0.03 x10-3 /uL 0-0.2 Not Available [facility] [address] [place] [address], [address], 02/02/2024 20:32:01 02/02/20 24 02/02/2024 CBC WITH AUTO DIFF immature granulocytes # 0.03 x10-3 /uL 0-0.03 Not Available [facility] [address] [place], [address], 02/02/2024 20:32:01 02/02/20 24 02/02/2024 CBC WITH AUTO DIFF performing lab Perfor toni [facility], [facility] Of [address] [place] [address] Medic al Dire marci john MD Not Available [facility] [address] [place], [address], 02/02/2024 20:32:01 02/02/20 24 02/02/2024 CREAT ININE WITH GFR creat 1.24 mg/dL 0.7-1. 3 Not Available [facility] [address] [place], [address], 02/02/2024 20:35:05 02/02/20 24 02/02/2024 CREAT ININE WITH GFR glomerular filtration rate 67 >60 This eGFR resul t was calcu lated using the CKD-E PI 2020 Creat inine Equat ion Not Available [facility] [address] [place], [address], 02/02/2024 20:35:05 02/02/20 24 02/02/2024 SGOT SGOT 21 U/L 10-42 Not Available [facility] [address] [place], [address], 02/02/2024 20:35:05 02/02/20 24 02/02/2024 SGPT SGPT 34 U/L 10-60 Not Available [facility] [address] [place], [address], 02/02/2024 20:35:06 02/02/20 24 02/02/2024 SGPT performing lab Perfor [facility], a [facility] Of [address] [place] [address] Medic al Altaf john MD Not Available [facility] [address] [place], [address], 02/02/2024 20:35:06 02/02/20 24 02/02/2024 TREPO NEMAL AB treponemal Ab NEGATI VE negati ve Not Available [facility] [address] [place], [address], 02/02/2024 20:58:05 02/02/20 24 02/02/2024 TREPO NEMAL AB performing lab Perfor toni Lab [facility], a membe r of [facility] [address] [place] [address] Medic al Altaf john MD Not Available [facility] [address] [place] [address], [address], 02/02/2024 20:58:05 02/02/20 24 02/02/2024 HEPAT ITIS C VIRUS SCREE N hepatitis C virus screen NEGATI VE negati ve Not Available [facility] [address] [place], [address], 02/02/2024 21:27:12 02/02/20 24 02/02/2024 HEPAT ITIS C VIRUS SCREE N performing lab Perfor toni [facility], [facility] [address] [place] [address] Medic al Direc marci john MD Not Available [facility] [address] [place], [address], 02/02/2024 21:27:12 02/02/20 24 02/03/2024 HIV VIRAL LOAD HIV viral load qual DETECT ED not detect . abnormal HIV RNA detec karen, but <20 copie s/mL Not Available [facility] [address] [place] [address], [address], 02/03/2024 09:56:36 02/02/20 24 02/03/2024 HIV VIRAL LOAD HIV viral load quant < 20 <20 Not Available [facility] [address] [place] [address], [address], 02/03/2024 09:56:36 02/02/20 24 02/03/2024 HIV VIRAL LOAD HIV viral load log < 1.30 <1.30 Not Available [facility] [address] [place] [address], [address], 02/03/2024 09:56:36 02/02/20 24 02/03/2024 HIV VIRAL LOAD performing lab Perfor toni Lab abnormal [facility], a [facility] [place] [facility] [address] [place] [address] Medic al Direc marci john MD Not Available [facility] [address] [place] [address], [address], 02/03/2024 09:56:36 02/02/20 24 02/03/2024 CHLAM YDIA DNA URINE chlamydia DNA urine NEGATI VE negati ve Not Available [facility] [address] [place] [address], [address], 02/03/2024 10:18:37 02/02/20 24 02/03/2024 GC DNA URINE GC DNA urine NEGATI VE negati ve Not Available [facility] [address], [address], 02/03/2024 10:18:38 02/02/20 24 02/03/2024 GC DNA URINE performing lab Perfor toni [facility], a [facility] of [facility] [address] [facility] [place] [address] Medic al Dire marci john MD Not Available [facility] [address] [place] [address], [address], 02/03/2024 10:18:38 02/02/20 24 02/05/2024 T4T8 PANEL percent cd3 72 % 55-86 Not Available [facility] [address] [place] [address], [address], 02/05/2024 13:09:51 02/02/20 24 02/05/2024 T4T8 PANEL absolute cd3 973 cell/ uL 704-21 38 Not Available [facility] [address] [place] [address], [address], 02/05/2024 13:09:51 02/02/20 24 02/05/2024 T4T8 PANEL percent cd8 22 % 9-37 Not Available [facility] [address] [place] [address], [address], 02/05/2024 13:09:51 02/02/20 24 02/05/2024 T4T8 PANEL absolute cd8 297 cell/ uL 190-83 2 Not Available [facility] [address] [place] [address], [address], 02/05/2024 13:09:51 02/02/20 24 02/05/2024 T4T8 PANEL percent cd4 49 % 35-66 Not Available [facility] [address] [place] [address], [address], 02/05/2024 13:09:51 02/02/20 24 02/05/2024 T4T8 PANEL absolute cd4 657 cell/ uL 443-14 71 Not Available [facility] [address] [place], [address], 02/05/2024 13:09:51 02/02/20 24 02/05/2024 T4T8 PANEL percent cd19 17 % 4-25 Not Available [facility] [address] [place], [address], 02/05/2024 13:09:51 02/02/20 24 02/05/2024 T4T8 PANEL absolute cd19 232 cell/ uL 100-52 4 Not Available [facility] [address] [place], [address], 02/05/2024 13:09:51 02/02/20 24 02/05/2024 T4T8 PANEL cd4 cd8 ratio 2.2 1.0-3. 7 Test perfo rmed at [facility] , [address], [place] [address] [phone] 76-65 22 Not Available [facility] [address] [place], [address], 02/05/2024 13:09:51 02/02/20 24 02/05/2024 T4T8 PANEL percent cd56 10 % 3-24 Not Available [facility] [address] [place], [address], 02/05/2024 13:09:51 02/02/20 24 02/05/2024 T4T8 PANEL absolute cd56 133 cell/ uL 60-500 Not Available [facility] [address] [place], [address], 02/05/2024 13:09:51 08/24/19 25 08/23/2024 CBC WITH AUTO DIFFE RENTI AL WBC 5.7 K/mcL 4.8-10 .8 Not Available [facility] [address] [place], [address], 08/23/2024 11:08:03 08/24/19 25 08/23/2024 CBC WITH AUTO DIFFE RENTI AL RBC 4.90 M/mcL 4.50-5 .50 Not Available [facility] [address] [place], [address], 08/23/2024 11:08:03 08/24/19 25 08/23/2024 CBC WITH AUTO DIFFE RENTI AL hemoglobin 14.8 g/dL 13.5-1 7.5 Not Available [facility] [address] [place], [address], 08/23/2024 11:08:03 08/24/19 25 08/23/2024 CBC WITH AUTO DIFFE RENTI AL hematocrit 44.7 % 42.0-5 4.0 Not Available [facility] [address] [place], [address], 08/23/2024 11:08:03 08/24/19 25 08/23/2024 CBC WITH AUTO DIFFE RENTI AL MCV 92.2 fL 79.0-9 8.0 Not Available [facility] [address] [place], [address], 08/23/2024 11:08:03 08/24/19 25 08/23/2024 CBC WITH AUTO DIFFE RENTI AL MCH 30.5 pcg 27.0-3 2.0 Not Available [facility] [address] [place], [address], 08/23/2024 11:08:03 08/24/19 25 08/23/2024 CBC WITH AUTO DIFFE RENTI AL MCHC 33.1 g/dL 32.0-3 7.0 Not Available [facility] [address] [place], [address], 08/23/2024 11:08:03 08/24/19 25 08/23/2024 CBC WITH AUTO DIFFE RENTI AL RDW 13.4 % 11.0-1 5.0 Not Available [facility] [address] [place], [address], 08/23/2024 11:08:03 08/24/19 25 08/23/2024 CBC WITH AUTO DIFFE RENTI AL platelets 222 K/mcL 130-40 0 Not Available [facility] [address] [place], [address], 08/23/2024 11:08:03 08/24/19 25 08/23/2024 CBC WITH AUTO DIFFE RENTI AL MPV 10.9 fL 7.0-11 .0 Not Available [facility] [address] [place], [address], 08/23/2024 11:08:03 08/24/19 25 08/23/2024 CBC WITH AUTO DIFFE RENTI AL NRBC 0.0 % <1.0 Not Available [facility] [address] [place], [address], 08/23/2024 11:08:03 08/24/19 25 08/23/2024 CBC WITH AUTO DIFFE RENTI AL NRBC absolute 0.00 K/mcL <0.10 Not Available [facility] [address] [place], [address], 08/23/2024 11:08:03 08/24/19 25 08/23/2024 CBC WITH AUTO DIFFE RENTI AL neutrophils relative 63.0 % Not Available [facility] [address] [place], [address], 08/23/2024 11:08:03 08/24/19 25 08/23/2024 CBC WITH AUTO DIFFE RENTI AL lymphocytes relative 26.1 % Not Available [facility] [address] [place], [address], 08/23/2024 11:08:03 08/24/19 25 08/23/2024 CBC WITH AUTO DIFFE RENTI AL monocytes relative 7.5 % Not Available [facility] [address] [place], [address], 08/23/2024 11:08:03 08/24/19 25 08/23/2024 CBC WITH AUTO DIFFE RENTI AL eosinophils relative 2.4 % Not Available [facility] [address] [place], [address], 08/23/2024 11:08:03 08/24/19 25 08/23/2024 CBC WITH AUTO DIFFE RENTI AL basophils relative 0.5 % Not Available [facility] [address] [place], [address], 08/23/2024 11:08:03 08/24/19 25 08/23/2024 CBC WITH AUTO DIFFE RENTI AL immature granulocytes relative 0.5 % Not Available [facility] [address] [place], [address], 08/23/2024 11:08:03 08/24/19 25 08/23/2024 CBC WITH AUTO DIFFE RENTI AL neutrophils absolute 3.61 K/mcL 1.50-7 .00 Not Available [facility] [address] [place], [address], 08/23/2024 11:08:03 08/24/19 25 08/23/2024 CBC WITH AUTO DIFFE RENTI AL lymphocytes absolute 1.50 K/mcL 1.00-5 .00 Not Available [facility] [address] [place], [address], 08/23/2024 11:08:03 08/24/19 25 08/23/2024 CBC WITH AUTO DIFFE RENTI AL monocytes absolute 0.43 K/mcL 0.20-1 .00 Not Available [facility] [address] [place], [address], 08/23/2024 11:08:03 08/24/19 25 08/23/2024 CBC WITH AUTO DIFFE RENTI AL eosinophils absolute 0.14 K/mcL 0.00-0 .50 Not Available [facility] [address] [place], [address], 08/23/2024 11:08:03 08/24/19 25 08/23/2024 CBC WITH AUTO DIFFE RENTI AL basophils absolute 0.03 K/mcL 0.00-0 .20 Not Available [facility] [address] [place], [address], 08/23/2024 11:08:03 08/24/19 25 08/23/2024 CBC WITH AUTO DIFFE RENTI AL immature granulocytes absolute 0.03 K/mcL 0.00-0 .03 Not Available [facility] [address] [place], [address], 08/23/2024 11:08:03 08/24/19 25 08/23/2024 CBC WITH AUTO DIFFE RENTI AL note See Report [facility], [address] [facility], [place], [place] [id number] Not Available [facility] [address] [place], [address], 08/23/2024 11:08:03 08/24/19 25 08/23/2024 AMYLA SE amylase 211 unit/ L 25-115 high Not Available [facility] [address] [place], [address], 08/23/2024 11:25:05 08/24/19 25 08/23/2024 AMYLA SE note See Report high [facility], [address] [facility], [place] [address], [place] [id number] Not Available [facility] [address] [place], [address], 08/23/2024 11:25:05 08/24/19 25 08/23/2024 LIPID PANEL WITH REFLE X TO DIREC T LDL cholesterol 210 mg/dL 0-200 high Not Available [facility] [address] [place], [address], 08/23/2024 11:26:05 08/24/19 25 08/23/2024 LIPID PANEL WITH REFLE X TO DIREC T LDL triglyceride s 154 mg/dL 0-150 high Not Available [facility] [address] [place], [address], 08/23/2024 11:26:05 08/24/19 25 08/23/2024 LIPID PANEL WITH REFLE X TO DIREC T LDL HDL 58 mg/dL >=40 Not Available [facility] [address] [place], [address], 08/23/2024 11:26:05 08/24/19 25 08/23/2024 LIPID PANEL WITH REFLE X TO DIREC T LDL LDL calculated 121 mg/dL 0-100 high Not Available [facility] [address] [place], [address], 08/23/2024 11:26:05 08/24/19 25 08/23/2024 LIPID PANEL WITH REFLE X TO DIREC T LDL VLDL cholesterol aj 30.8 mg/dL Not Available [facility] [address] [place], [address], 08/23/2024 11:26:05 08/24/19 25 08/23/2024 LIPID PANEL WITH REFLE X TO DIREC T LDL non HDL chol. (LDL+VLDL) 152 mg/dL <145 high Not Available [facility] [address] [place], [address], 08/23/2024 11:26:05 08/24/19 25 08/23/2024 LIPID PANEL WITH REFLE X TO DIREC T LDL chol/HDL ratio 3.6 0.0-4. 4 Not Available [facility] [address] [place], [address], 08/23/2024 11:26:05 08/24/19 25 08/23/2024 LIPID PANEL WITH REFLE X TO DIREC T LDL note See Report [facility], [address] [facility], Deyanira [place]wood, [facility] [place] [id number] Not Available [facility] [address] [place], [address], 08/23/2024 11:26:05 08/24/19 25 08/23/2024 THYRO ID STIMU LATIN G HORMO NE TSH 2.20 mciu/ mL 0.40-4 .00 Not Available [facility] [address] [place], [id number], 08/23/2024 11:39:03 08/24/19 25 08/23/2024 THYRO ID STIMU LATIN G HORMO NE note See Report [facility], [address] [facility] [place] [id number] Not Available [facility] [address], [place], [id number], 08/23/2024 11:39:03 08/24/19 25 08/23/2024 LIPAS E lipase 411 unit/ L 13-75 high Not Available [facility] [address] [place] [address], [address], 08/23/2024 11:45:04 08/24/19 25 08/23/2024 LIPAS E note See Report high [facility], [address] [facility], [address], [facility] [place] [id number] Not Available [facility] [address] [place], [address], 08/23/2024 11:45:04 08/24/19 25 08/23/2024 HEPAT ITIS B SURFA CE ANTIG EN WITH REFLE X TO CONFI RMATI ON hepatitis B surface Ag Negati ve negati ve Not Available [facility] [address] [place] [address], [address], 08/23/2024 11:50:07 08/24/19 25 08/23/2024 HEPAT ITIS B SURFA CE ANTIG EN WITH REFLE X TO CONFI RMATI ON note See Report [facility], [address] [facility], [address], [facility] [place] [id number] Not Available [facility] [address] [place], [address], 08/23/2024 11:50:07 08/24/19 25 08/23/2024 TREPO NEMA PALLI DUM ANTIB BRENDAN WITH REFLE X TO RPR AND PARTI KENA AGGLU TINAT ION T. pallidum antibodies Negati ve negati ve Not Available [facility] [address] [place], [address], 08/23/2024 11:52:07 08/24/19 25 08/23/2024 TREPO NEMA PALLI DUM ANTIB BRENDAN WITH REFLE X TO RPR AND PARTI KENA AGGLU TINAT ION note See Report [facility], [address] [facility], [address], [facility] [place] [id number] Not Available [facility] [address] [place], [address], 08/23/2024 11:52:07 08/24/1908/23/2024 COMPR EHENS SANDY METAB OLIC PANEL sodium 139 mmol/ L 133-14 5 Not Available [facility] [address] [place], [address], 08/23/2024 12:07:12 08/24/1908/23/2024 COMPR EHENS SANDY METAB OLIC PANEL potassium 4.9 mmol/ L 3.5-5. 5 Not Available [facility] [address] [place], [address], 08/23/2024 12:07:12 08/24/1908/23/2024 COMPR EHENS SANDY METAB OLIC PANEL chloride 106 mmol/ L 96-110 Not Available [facility] [address] [place], [address], 08/23/2024 12:07:12 08/24/1908/23/2024 COMPR EHENS SANDY METAB OLIC PANEL CO2 29 mmol/ L 21-32 Not Available [facility] [address] [place], [address], 08/23/2024 12:07:12 08/24/1908/23/2024 COMPR EHENS SANDY METAB OLIC PANEL anion gap 4 3-11 Not Available [facility] [address] [place], [address], 08/23/2024 12:07:12 08/24/1908/23/2024 COMPR EHENS SANDY METAB OLIC PANEL glucose 92 mg/dL 70-100 Not Available [facility] [address] [place], [address], 08/23/2024 12:07:12 08/24/1908/23/2024 COMPR EHENS SANDY METAB OLIC PANEL BUN 20 mg/dL 5-25 Not Available [facility] [address] [place], [address], 08/23/2024 12:07:12 08/24/19 08/23/2024 COMPR EHENS SANDY METAB OLIC PANEL creatinine 1.19 mg/dL 0.70-1 .30 Not Available [facility] [address] [place], [address], 08/23/2024 12:07:12 08/24/19 25 08/23/2024 COMPR EHENS SANDY METAB OLIC PANEL eGFR 70 mL/mi n/1.7 3m2 >=60 Calcu latio n based on the Chron ic Kidne y Disea se Epide miolo gy Colla borat ion (CKD- EPI) equat ion refit witho ut adjus tment for race. Not Available [facility] [address] [place], [address], 08/23/2024 12:07:12 08/24/19 25 08/23/2024 COMPR EHENS SANDY METAB OLIC PANEL BUN/creatini ne ratio 16.8 Not Available [facility] [address] [place], [address], 08/23/2024 12:07:12 08/24/19 25 08/23/2024 COMPR EHENS SANDY METAB OLIC PANEL calcium 9.2 mg/dL 8.5-10 .5 Not Available [facility] [address] [place], [address], 08/23/2024 12:07:12 08/24/19 25 08/23/2024 COMPR EHENS SANDY METAB OLIC PANEL AST (SGOT) 13 unit/ L 10-42 Not Available [facility] [address] [place], [address], 08/23/2024 12:07:12 08/24/19 25 08/23/2024 COMPR EHENS SANDY METAB OLIC PANEL ALT (SGPT) 46 unit/ L 10-60 Not Available [facility] [address] [place], [address], 08/23/2024 12:07:12 08/24/19 25 08/23/2024 COMPR EHENS SANDY METAB OLIC PANEL alkaline phosphatase 96 unit/ L 42-121 Not Available [facility] [address] [facility] [address], [place], [address], 08/23/2024 12:07:12 08/24/19 25 08/23/2024 COMPR EHENS SANDY METAB OLIC PANEL total protein 7.0 g/dL 6.0-8. 0 Not Available [facility] [address] [place] [address], [address], 08/23/2024 12:07:12 08/24/19 25 08/23/2024 COMPR EHENS SANDY METAB OLIC PANEL albumin 3.8 g/dL 3.2-5. 0 Not Available [facility] [address] [place] [address], [address], 08/23/2024 12:07:12 08/24/19 25 08/23/2024 COMPR EHENS SANDY METAB OLIC PANEL total bilirubin 0.7 mg/dL 0.0-1. 4 Not Available [facility] [address] [place] [address], [address], 08/23/2024 12:07:12 08/24/19 25 08/23/2024 COMPR EHENS SANDY METAB OLIC PANEL note See Report [facility], [address] [place] [address], [address], [place] [id number] Not Available [facility] [address] [place] [address], [address], 08/23/2024 12:07:12 08/24/19 25 08/23/2024 HIV 1 MOLEC ULAR STUDY QUANT ITATI VE HIV-1 RNA interpretati on Detect ed not detect ed abnormal Not Available [facility] [address] [place] [address], [address], 08/23/2024 15:03:28 08/24/19 25 08/23/2024 HIV 1 MOLEC ULAR STUDY QUANT ITATI VE HIV-1 RNA copies < copie s/mL <20 HIV RNA detec karen but below the limit of quant itati on. Unabl e to repor t quant itati ve resul ts <20 copie s/mL. Not Available [facility] [address] [place] [address], [address], 08/23/2024 15:03:28 08/24/19 25 08/23/2024 HIV 1 MOLEC ULAR STUDY QUANT ITATI VE HIV-1 RNA log < log_1 0_cop ies/m L <1.30 Not Available [facility] [address] [place] [address], [address], 08/23/2024 15:03:28 08/24/19 25 08/23/2024 HIV 1 MOLEC ULAR STUDY QUANT ITATI VE note See Report [facility], [address] [facility], [address], [place] [id number] Not Available [facility] [address] [place] [address], [address], 08/23/2024 15:03:28 08/24/19 25 08/23/2024 LYMPH OCYTE T-KATIA L PANEL cd4 671 cells /mcL 426-17 76 Not Available [facility] [address] [place] [address], [address], 08/25/2024 07:04:36 08/24/19 25 08/23/2024 LYMPH OCYTE T-KATIA L PANEL cd8 300 cells /mcL 161-83 8 Not Available [facility] [address] [place] [address], [address], 08/25/2024 07:04:36 08/24/19 25 08/23/2024 LYMPH OCYTE T-KATIA L PANEL cd4/cd8 ratio 2.24 0.90-4 .90 Not Available [facility] [address] [place] [address], [address], 08/25/2024 07:04:36 08/24/19 25 08/23/2024 LYMPH OCYTE T-KATIA L PANEL cd4 % 45 % 33-64 Not Available [facility] [address] [place] [address], [address], 08/25/2024 07:04:36 08/24/19 25 08/23/2024 LYMPH OCYTE T-KATIA L PANEL cd8 % 20 % 10-39 Not Available [facility] [address] [place] [address], [address], 08/25/2024 07:04:36 08/24/19 25 08/23/2024 LYMPH OCYTE T-KATIA L PANEL note See Report [facility], [address] [facility], [address], [place] [id number] Not Available [facility] [address] [place], [address], 08/25/2024 07:04:36 03/06/20 25 03/06/2025 CBC WITH AUTO DIFFE RENTI AL WBC 5.8 K/mcL 4.8-10 .8 Not Available [facility] [address] [place] [address], [address], 03/06/2025 14:11:26 03/06/20 25 03/06/2025 CBC WITH AUTO DIFFE RENTI AL RBC 4.60 M/mcL 4.50-5 .50 Not Available [facility] [address] [place] [address], [address], 03/06/2025 14:11:26 03/06/20 25 03/06/2025 CBC WITH AUTO DIFFE RENTI AL hemoglobin 13.6 g/dL 13.5-1 7.5 Not Available [facility] [address] [place] [address], [address], 03/06/2025 14:11:26 03/06/20 25 03/06/2025 CBC WITH AUTO DIFFE RENTI AL hematocrit 42.6 % 42.0-5 4.0 Not Available [facility] [address] [place], [address], 03/06/2025 14:11:26 03/06/20 25 03/06/2025 CBC WITH AUTO DIFFE RENTI AL MCV 93.4 fL 79.0-9 8.0 Not Available [facility] [address] [place] [address], [address], 03/06/2025 14:11:26 03/06/20 25 03/06/2025 CBC WITH AUTO DIFFE RENTI AL MCH 29.8 pcg 27.0-3 2.0 Not Available [facility] [address] [place], [address], 03/06/2025 14:11:26 03/06/20 25 03/06/2025 CBC WITH AUTO DIFFE RENTI AL MCHC 31.9 g/dL 32.0-3 7.0 low Not Available [facility] [address] [place], [address], 03/06/2025 14:11:26 03/06/20 25 03/06/2025 CBC WITH AUTO DIFFE RENTI AL RDW 14.1 % 11.0-1 5.0 Not Available [facility] [address] [place], [address], 03/06/2025 14:11:26 03/06/20 25 03/06/2025 CBC WITH AUTO DIFFE RENTI AL platelets 265 K/mcL 130-40 0 Not Available [facility] [address] [place], [address], 03/06/2025 14:11:26 03/06/20 25 03/06/2025 CBC WITH AUTO DIFFE RENTI AL MPV 11.2 fL 7.0-11 .0 high Not Available [facility] [address] [place], [address], 03/06/2025 14:11:26 03/06/20 25 03/06/2025 CBC WITH AUTO DIFFE RENTI AL NRBC 0.0 % <1.0 Not Available [facility] [address] [place], [address], 03/06/2025 14:11:26 03/06/20 25 03/06/2025 CBC WITH AUTO DIFFE RENTI AL NRBC absolute 0.00 K/mcL <0.10 Not Available [facility] [address] [place], [address], 03/06/2025 14:11:26 03/06/20 25 03/06/2025 CBC WITH AUTO DIFFE RENTI AL neutrophils relative 57.4 % Not Available [facility] [address] [place], [address], 03/06/2025 14:11:26 03/06/20 25 03/06/2025 CBC WITH AUTO DIFFE RENTI AL lymphocytes relative 28.9 % Not Available [facility] [address] [place], [address], 03/06/2025 14:11:26 03/06/20 25 03/06/2025 CBC WITH AUTO DIFFE RENTI AL monocytes relative 11.2 % Not Available [facility] [address] [place], [address], 03/06/2025 14:11:26 03/06/20 25 03/06/2025 CBC WITH AUTO DIFFE RENTI AL eosinophils relative 1.7 % Not Available [facility] [address] [place], [address], 03/06/2025 14:11:26 03/06/20 25 03/06/2025 CBC WITH AUTO DIFFE RENTI AL basophils relative 0.5 % Not Available [facility] [address] [place], [address], 03/06/2025 14:11:26 03/06/20 25 03/06/2025 CBC WITH AUTO DIFFE RENTI AL immature granulocytes relative 0.3 % Not Available [facility] [address] [place], [address], 03/06/2025 14:11:26 03/06/20 25 03/06/2025 CBC WITH AUTO DIFFE RENTI AL neutrophils absolute 3.33 K/mcL 1.50-7 .00 Not Available [facility] [address] [place], [address], 03/06/2025 14:11:26 03/06/20 25 03/06/2025 CBC WITH AUTO DIFFE RENTI AL lymphocytes absolute 1.68 K/mcL 1.00-5 .00 Not Available [facility] [address] [place], [address], 03/06/2025 14:11:26 03/06/20 25 03/06/2025 CBC WITH AUTO DIFFE RENTI AL monocytes absolute 0.65 K/mcL 0.20-1 .00 Not Available [facility] [address] [place], [address], 03/06/2025 14:11:26 03/06/20 25 03/06/2025 CBC WITH AUTO DIFFE RENTI AL eosinophils absolute 0.10 K/mcL 0.00-0 .50 Not Available [facility] [address] [place] [address], [address], 03/06/2025 14:11:26 03/06/20 25 03/06/2025 CBC WITH AUTO DIFFE RENTI AL basophils absolute 0.03 K/mcL 0.00-0 .20 Not Available [facility] [address] [place], [address], 03/06/2025 14:11:26 03/06/20 25 03/06/2025 CBC WITH AUTO DIFFE RENTI AL immature granulocytes absolute 0.02 K/mcL 0.00-0 .03 Not Available [facility] [address] [place] [address], [address], 03/06/2025 14:11:26 03/06/20 25 03/06/2025 CBC WITH AUTO DIFFE RENTI AL note See Report [facility], [address] [facility], [address], [facility] [place] [id number] Not Available [facility] [address] [place] [address], [address], 03/06/2025 14:11:26 03/06/20 25 03/06/2025 TREPO NEMA PALLI DUM ANTIB BRENDAN WITH REFLE X TO RPR AND PARTI KENA AGGLU TINAT ION T. pallidum antibodies Negati ve negati ve Not Available [facility] [address] [place], [address], 03/06/2025 16:31:24 03/06/20 25 03/06/2025 TREPO NEMA PALLI DUM ANTIB BRENDAN WITH REFLE X TO RPR AND PARTI KENA AGGLU TINAT ION note See Report [facility], [address] [facility], [place], [place] [address] Not Available [facility] [address] [place], [address], 03/06/2025 16:31:24 03/06/20 25 03/06/2025 HIV 1 MOLEC ULAR STUDY QUANT ITATI VE HIV-1 RNA interpretati on Detect ed not detect ed abnormal Not Available [facility] [address] [place] [address], [address], 03/07/2025 14:56:10 03/06/20 25 03/06/2025 HIV 1 MOLEC ULAR STUDY QUANT ITATI VE HIV-1 RNA copies < copie s/mL <20 HIV RNA detec karen but below the limit of quant itati on. Unabl e to repor t quant itati ve resul ts <20 copie s/mL. Not Available [facility] [address] [place] [address], [address], 03/07/2025 14:56:10 03/06/20 25 03/06/2025 HIV 1 MOLEC ULAR STUDY QUANT ITATI VE HIV-1 RNA log < log_1 0_cop ies/m L <1.30 Not Available [facility] [address] [place] [address], [address], 03/07/2025 14:56:10 03/06/20 25 03/06/2025 HIV 1 MOLEC ULAR STUDY QUANT ITATI VE note See Report [facility], [address] [facility], [address], [place] [address] Not Available [facility] [address] [place] [address], [address], 03/07/2025 14:56:10 03/06/20 25 03/06/2025 LYMPH OCYTE T-KATIA L PANEL cd4 680 cells /mcL 426-17 76 Not Available [facility] [address] [place] [address], [address], 03/10/2025 09:24:47 03/06/20 25 03/06/2025 LYMPH OCYTE T-KATIA L PANEL cd8 314 cells /mcL 161-83 8 Not Available [facility] [address] [place] [address], [address], 03/10/2025 09:24:47 03/06/20 25 03/06/2025 LYMPH OCYTE T-KATIA L PANEL cd4/cd8 ratio 2.17 0.90-4 .90 Not Available [facility] [address] [place] [address], [address], 03/10/2025 09:24:47 03/06/20 25 03/06/2025 LYMPH OCYTE T-KATIA L PANEL cd4 % 48 % 33-64 Not Available [facility] [address] [place] [address], [address], 03/10/2025 09:24:47 03/06/20 25 03/06/2025 LYMPH OCYTE T-KATIA L PANEL cd8 % 22 % 10-39 Not Available [facility] [address] [place] [address], [address], 03/10/2025 09:24:47 03/06/20 25 03/06/2025 LYMPH OCYTE T-KATIA L PANEL note See Report [facility], [address] [place] [address], [address], [place] [address] Not Available [facility] [address] [place] [address], [address], 03/10/2025 09:24:47 Result Notes None recorded. Problems Name Problem SNOMED Code Status Onset Date Resolution Date Notes Provider Name and Address Organization Details Recorded Time Dizziness and giddiness 745694249 Active 2003 Dizziness and giddiness; snomeddesc ription: Vertigo; Report Immunity to Registry: Yes; Notes: vertigo; Not Available [facility] 4 06:58:27 Vertigo 602686985 Active 2003 Vertigo; snomeddesc ription: Vertigo; Report Immunity to Registry: Yes; Notes: vertigo; Not Available [facility] 4 06:58:30 Primary malignant neoplasm of skin 68368532 Active 2004 Unspecifie d malignant neoplasm of skin, unspecifie d; snomeddesc ription: Malignant neoplasm of skin; Report Immunity to Registry: Yes; Notes: basal cell forearm; removed surgical; not active; Remote; Not Available [facility] 4 06:58:26 Insomnia 803173075 Active 2004 Insomnia; Report Immunity to Registry: Yes; Not Available [facility] 4 06:58:27 Depressiv e disorder 70628599 Active 2004 Other specified depressive episodes; snomeddesc ription: Symptoms of depression ; Report Immunity to Registry: Yes; Notes: derpession /anxiety/i nsomnia hx; Not Available [facility] 4 06:58:29 Symptoms of depressio n 464616934 Active 2004 Symptoms of depression ; snomeddesc ription: Symptoms of depression ; Report Immunity to Registry: Yes; Notes: derpession /anxiety/i nsomnia hx; Not Available [facility] 4 06:58:29 Anxiety 30060586 Active 2004 Anxiety; snomeddesc ription: Anxiety; Report Immunity to Registry: Yes; Notes: panic disorder (chest pain/palpi tations)/d epression; Not Available [facility] 4 06:58:31 Malignant neoplasm of skin 557532963 Active 2004 Malignant neoplasm of skin; snomeddesc ription: Malignant neoplasm of skin; Report Immunity to Registry: Yes; Notes: basal cell forearm; removed surgical; not active; Remote; Not Available [facility] 4 06:58:31 Anxiety disorder 841304214 Active 2004 Anxiety disorder, unspecifie d; snomeddesc ription: Anxiety; Report Immunity to Registry: Yes; Notes: panic disorder (chest pain/palpi tations)/d epression; Not Available [facility] 4 06:58:32 Vitamin D deficienc y 81790880 Active 2009 Vitamin D deficiency ; Report Immunity to Registry: Yes; Not Available [facility] 4 06:58:29 Hemorrhoi ds 75688642 Active 2009 Hemorrhoid s; snomeddesc ription: Hemorrhoid s; Report Immunity to Registry: Yes; Notes: internal and external; Unspecifi ed hemorrhoid s; snomeddesc ription: Hemorrhoid s; Report Immunity to Registry: Yes; Notes: internal and external; Not Available [facility] 4 06:58:32 Nasal congestio n 91706991 Active 2009 Nasal congestion ; snomeddesc ription: Nasal congestion ; Report Immunity to Registry: Yes; Notes: sinusitis/ allergies; Nasal congestion ; snomeddesc ription: Nasal congestion ; Report Immunity to Registry: Yes; Notes: sinusitis/ allergies; Not Available [facility] 4 06:58:33 Gout 93072924 Active 2009 Gout; Report Immunity to Registry: Yes; Not Available [facility] 4 06:58:33 Ulcer of esophagus 00400989 Active 2010 Ulcer of esophagus; snomeddesc ription: Ulcer of esophagus; Report Immunity to Registry: Yes; Notes: EGD/biopsy 2014; ulcerative esophagiti s ; Ulcer of esophagus without bleeding; snomeddesc ription: Ulcer of esophagus; Report Immunity to Registry: Yes; Notes: EGD/biopsy 2014; ulcerative esophagiti s ; Not Available [facility] 4 06:58:27 Essential hypertens ion 00848217 Active 2010 Essential (primary) hypertensi on; snomeddesc ription: Hypertensi ve disorder; Report Immunity to Registry: Yes; Not Available [facility] 4 06:58:28 Hypertens sandy disorder 84541934 Active 2010 Hypertensi ve disorder; snomeddesc ription: Hypertensi ve disorder; Report Immunity to Registry: Yes; Not Available [facility] 4 06:58:28 Benign prostatic hyperplas ia 493579232 Active 2011 Benign prostatic hyperplasi a; snomeddesc ription: Benign prostatic hyperplasi a; Report Immunity to Registry: Yes; Benign prostatic hyperplasi a without lower urinary tract symptoms; snomeddesc ription: Benign prostatic hyperplasi a; Report Immunity to Registry: Yes; Not Available [facility] 4 06:58:28 Polyneuro randal 65271258 Active 2011 Polyneurop athy, unspecifie d; snomeddesc ription: Neuropathy ; Report Immunity to Registry: Yes; Not Available [facility] 4 06:58:29 Hyperlipi demia 12997642 Active 2011 Hyperlipid emia; snomeddesc ription: Hyperlipid emia; Report Immunity to Registry: Yes; Hyperlipi demia, unspecifie d; snomeddesc ription: Hyperlipid emia; Report Immunity to Registry: Yes; Not Available [facility] 4 06:58:32 Neuropath y 972818823 Active 2011 Neuropathy ; snomeddesc ription: Neuropathy ; Report Immunity to Registry: Yes; Not Available [facility] 4 06:58:33 Spasm 04343028 Active 2012 Muscle spasm; Report Immunity to Registry: Yes; Notes: upper/lowe r back/chron ic pain; Not Available [facility] 4 06:58:27 Chronic back pain 430875260 Active 2012 Chronic back pain; snomeddesc ription: Chronic back pain; Report Immunity to Registry: Yes; Notes: chronic back pain/gener alized pain back surgery 09/2018 dx l2-3 stenosis l2-3 decompessi on partial laminectom y medial fecetectom y foraminoto jose bilateral; Not Available [facility] 4 06:58:30 Pain in thoracic spine 792709676 Active 2012 Dorsalgia, unspecifie d; snomeddesc ription: Chronic back pain; Report Immunity to Registry: Yes; Notes: chronic back pain/gener alized pain back surgery 09/2018 dx l2-3 stenosis l2-3 decompessi on partial laminectom y medial fecetectom y foraminoto jose bilateral; Not Available [facility] 4 06:58:31 Furuncle 627139678 Active 2014 Furuncle; snomeddesc ription: Furuncle; Report Immunity to Registry: Yes; Notes: skin/forea christine/follic ulitis; Furuncle, unspecifie d; snomeddesc ription: Furuncle; Report Immunity to Registry: Yes; Notes: skin/forea christine/follic ulitis; Not Available [facility] 4 06:58:30 Herpesvir us infection 26329343 Active 2015 Herpesvira l infection, unspecifie d; snomeddesc ription: Herpes simplex; Report Immunity to Registry: Yes; Notes: HSV 1 pos w oral HSV sores; HSV 2 neg 2015; Not Available [facility] 4 06:58:26 Herpes simplex 44386926 Active 2015 Herpes simplex; snomeddesc ription: Herpes simplex; Report Immunity to Registry: Yes; Notes: HSV 1 pos w oral HSV sores; HSV 2 neg 2015; Not Available [facility] 4 06:58:27 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 Human immunodefi ciency virus infection; snomeddesc ription: Human immunodefi ciency virus infection; Report Immunity to Registry: Yes; Notes: [id number] neg ; Human immunodefi ciency virus [HIV] disease; snomeddesc ription: Human immunodefi ciency virus infection; Report Immunity to Registry: Yes; Notes: [id number] neg ; Not Available [facility] 4 06:58:32 Hemangiom a of intra-abd ominal structure 863400966 Active 2015 Hemangioma of intra-abdo maddi structures ; snomeddesc ription: Hemangioma of liver; Report Immunity to Registry: Yes; Not Available [facility] 4 06:58:28 Hemangiom a of liver 49800655 Active 2015 Hemangioma of liver; snomeddesc ription: Hemangioma of liver; Report Immunity to Registry: Yes; Not Available [facility] 4 06:58:31 Blood chemistry outside reference range 826929758 Active 2016 Other specified abnormal findings of blood chemistry; snomeddesc ription: Decreased testostero ne level; Report Immunity to Registry: Yes; Not Available [facility] 4 06:58:29 Testoster one level below reference range 483656860 Active 2016 Decreased testostero ne level; snomeddesc ription: Decreased testostero ne level; Report Immunity to Registry: Yes; Not Available [facility] 4 06:58:33 Tremor 51202452 Active 2017 Other specified forms of tremor; snomeddesc ription: Resting tremor; Report Immunity to Registry: Yes; Not Available [facility] 4 06:58:31 Resting tremor 82163077 Active 2017 Resting tremor; snomeddesc ription: Resting tremor; Report Immunity to Registry: Yes; Not Available [facility] 4 06:58:33 Kidney stone 81476617 Active 2018 Kidney stone; snomeddesc ription: Kidney stone; Report Immunity to Registry: Yes; Calculus of kidney; snomeddesc ription: Kidney stone; Report Immunity to Registry: Yes; Not Available [facility] 4 06:58:28 Gastroeso phageal reflux disease 627944290 Active 2018 Gastroesop hageal reflux disease; snomeddesc ription: Gastroesop hageal reflux disease; Report Immunity to Registry: Yes; Not Available [facility] 4 06:58:29 Gastroeso phageal reflux disease without esophagit is 245839048 Active 2018 Gastro-eso phageal reflux disease without esophagiti s; snomeddesc ription: Gastroesop hageal reflux disease; Report Immunity to Registry: Yes; Not Available [facility] 4 06:58:30 Diaphragm atic hernia 91828677 Active 2019 Diaphragma tic hernia without obstructio n or gangrene; snomeddesc ription: Hiatal hernia; Report Immunity to Registry: Yes; Notes: per PCP note; Not Available [facility] 4 06:58:27 Hiatal hernia 40387876 Active 2019 Hiatal hernia; snomeddesc ription: Hiatal hernia; Report Immunity to Registry: Yes; Notes: per PCP note; Not Available [facility] 4 06:58:32 Aphthous ulcer of mouth 907133337 Active 2019 Aphthous ulcer of mouth; snomeddesc ription: Aphthous ulcer of mouth; Report Immunity to Registry: Yes; Not Available [facility] [facility] 4 06:58:27 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 Recurrent oral aphthae; snomeddesc ription: Aphthous ulcer of mouth; Report Immunity to Registry: Yes; Not Available [facility] 4 06:58:28 Erectile dysfuncti on 497595553 Active 2019 Male erectile disorder; Report Immunity to Registry: Yes; Notes: low testostero ne; Not Available [facility] 4 06:58:30 Chronic pain 27509486 Active 2020 Chronic pain; snomeddesc ription: Chronic pain; Report Immunity to Registry: Yes; Notes: Back/shoul erica.all body; Other chronic pain; snomeddesc ription: Chronic pain; Report Immunity to Registry: Yes; Notes: Back/shoul erica.all body; Not Available [facility] 4 06:58:26 Lipodystr ophy 62523376 Active 2022 Siddharth Metz MD [address] [place], [place] [address], [address] , CORAZON METZ MD [facility] 3 02:42:40 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 Siddharth Metz MD [address] [place], [place] [address], [address] , CORAZON METZ MD [facility] 3 02:42:52 Notes:osteoarthirtis ; Onset Date: 06/15/2013; Report Immunity to Registry: Yes; Notes: multiple/generalized; Some problems listed in Document: #[id number] could not be added to this patient's [...] Not Available Not Available Not Avai lable [facility] (15 mcg x [...] mass index (BMI) Body weight Oxygen saturation Systolic And Diastolic Provider Name and Address Organization Details Last Updated DateTime 5 177.8 cm 67 /min 12 /min 98.4 [degF] 28.7 kg/m2 36390.4 7 g 96 % 108/70 mm[Hg] Tiff [facility] 5 14:57:19 Date Recorded Body height Heart rate Body temperature Body mass index (BMI) Body weight Systolic And Diastolic Provider Name and Address Organization Details Last Updated DateTime 5 177.8 cm 63 /min 98.3 [degF] 28.3 kg/m2 37923.7 g 132/74 mm[Hg] Tiff METZ MD [facility] 5 14:11:38 Date Recorded Body height Heart rate Respiratory rate Body temperature Body mass index (BMI) Body weight Head circumference Oxygen saturation Systolic And Diastolic Provider Name and Address Organization Details Last Updated DateTime 4 177.8 cm 70 /min 12 /min 98.4 [degF] 27.7 kg/m2 35802.3 3 g 95.5 cm 96 % 120/78 mm[Hg] Tiff METZ MD [facility] 4 15:21:04 Date Recorded Body height Heart rate Body temperature Body mass index (BMI) Body weight Systolic And Diastolic Provider Name and Address Organization Details Last Updated DateTime 5 177.8 cm 72 /min 97.2 [degF] 27.5 kg/m2 79749.7 4 g 98/63 mm[Hg] Shahla METZ MD [facility] 5 14:03:50 Date Recorded Body height Heart rate Respiratory rate Body temperature Body mass index (BMI) Body weight Oxygen saturation Head circumference Systolic And Diastolic Provider Name and Address Organization Details Last Updated DateTime 4 177.8 cm 62 /min 12 /min 98.7 [degF] 28 kg/m2 79181.5 1 g 98 % 93.5 cm 126/80 mm[Hg] Tiff METZ MD [facility] 4 15:01:25 Social History Question Answer Notes LastModified by Organizat ion Details LastModified Time Tobacco Smoking Status Never Smoker CORAZON Seaman MD [facility] 02/24/2023 15:11:34 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 Yes Night Blindness [email or web address] Information not available 02/24/2023 Are You Deaf Or Do You Have Serious Difficulty Hearing? No [email or web address] Information not available 02/24/2023 What Type Of Diet Are You Following? REGULAR [email or web address] Information not available 02/24/2023 Which Of Your Hands Is Dominant? Right Information not available 02/24/2023 Do You Use Your Seat Belt Or Car Seat Routinely? Yes [email or web address] Information not available 02/24/2023 Do You Have Difficulty Walking Or Climbing Stairs? Yes Back Pain [email or web address] Information not available 02/24/2023 Do You Have Any Dietary Restrictions? No Information not available 02/24/2023 Sex: Male Functional Status Question Answer Note LastModified by Organizat ion Details LastModified Time Do you have transportation difficulties? No [email or web address] Information not available 02/24/2023 Are you able to walk independently without assistance or assistive devices? YESWOREST [email or web address] Information not available 02/24/2023 Do you have difficulty doing errands alone? No [email or web address] Information not available 02/24/2023 Are you able to care for yourself independently? Yes [email or web address] Information not available 02/24/2023 Do you have difficulty dressing, bathing, grooming, or toileting? No [email or web address] Information not available 02/24/2023 Mental Status Question Answer Note LastModified by Organizat ion Details LastModified Time Do you feel stressed (tense, restless, nervous, or anxious, or unable to sleep at night)? [id number] Information not available 02/24/2023 Do you have difficulty concentrating, remembering or making decisions? No [email or web address] Information no t available 02/24/2023 Family History Nothing Reported Notes:Hypertension, Response Property: Yes; , Stroke, Response Property: Yes; Medical History Condition Response Anxiety Disorder Y AIDS/HIV Y Depression Y Immunizations Vaccine Type Date Status Note Provider Nam e and Address Organization Details Recorded Time COVID-19, mRNA, LNP-S, PF, 50 mcg/0.5 mL 03/24/2023 completed Tiff maya [place] - SIDDHARTH METZ MD [facility] 11/04/2023 14:39:33 Past Encounters Encounter ID Performer Location Encounter Start Date Encounter Closed Date Diagnosis/Indication Diagnosis SNOMED-CT Code Diagnosis ICD10 Code Diagnosis IMO Codes Diagnosis Note [id number] Siddharth Metz MD Main Office [address] [place] [address] [place] [id number] 02/24/2023 14:54:31 03/05/2023 07:47:11 Human immunodeficiency virus infection 31672195 B20 Detected HIV VL. pt denies new meds, missing doses, denies supplement s.resistan ce test ordered.corazon reeder need to change regimen if evidence of viral resistance to componenss trict compliance avoid supplement sflu and prevnar 20 prescribed . 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 pt aware this is not weight loss tx.potenti al side effects reviewed such as allergic reactions, edema, myalgia, arthlagia among other. s/c med; needs to rotate. 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 to decrease frequency and severity of flareups. [id number] Siddharth Metz MD Main Office [address] [place] [address] 05/27/2023 11:58:48 05/27/2023 13:14:52 Human immunodeficiency virus infection 77064821 B20 on Biktarvy 1 tab po qd.clinicl trial options reviewed with monoclonal AB; consent providedst rict compliance reviewed.a void supplement spt aware of PreP availabili tycondom use [id number] Siddharth Metz MD Main Office [address] [place] [address] 08/25/2023 12:03:16 08/25/2023 13:23:31 Human immunodeficiency virus infection 25691543 B20 on Biktarvy 1 tab po qd.strict compliance reviewed.a void supplement s or keep them 6 hrs apart; ot take w Biktarvy w foodpt aware of PreP availabili ty. U=U reviewed.c ondom use for STI prevention Candidiasis of mouth 797 21654 B37.0 fluconazol e prescribed for thrush. has tolerated well in the past.oral bacterial swab/funga l swab obtained.c all if recurrence in setting of recent dental extraction Methicilli n resistant Staphylococcus aureus infection 680794619 A49.02 on qd suppressio n tx PRN. to decrease frequency and severity of flareups. 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 [id number] Siddharth Metz MD Main Office [address] [place] [address] 09/15/2023 14:59:47 09/15/2023 15:20:13 Human immunodeficiency virus infection 70438361 B20 on Biktarvy 1 tab po qd.strict compliance reviewed.a void supplement s or keep them 6 hrs apart; ot take w Biktarvy w foodpt aware of PreP availabili ty. 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 first dose [...] options if egrifta does not get approved. [id number] Siddharth Metz MD Main Office [address] [place] [address] 11/04/2023 14:13:14 11/04/2023 15:02:39 Human immunodeficiency virus infection 57129370 B20 on Biktarvy 1 tab po qd.strict compliance reviewed.a void supplement s or keep them 6 hrs apart; ot take w Biktarvy w foodpt aware of PreP availabili ty. 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 correct use rveiewed. [id number] Siddharth Metz MD Main Office [address] [place] [address] 02/10/2024 15:03:59 02/10/2024 15:55:05 Human immunodeficiency virus infection 68121848 B20 on Biktarvy 1 tab po qd.strict compliance reviewed.a void supplement s or keep them 6 hrs apart; ot take w Biktarvy w foodpt aware of PreP availabili ty. U=U reviewed.c ondom use for STI prevention aware of DoxyPEP Folliculitis 00011935 L7 3.9 on topical antibiotic PRNdoxycyc line suppressio n tx Anxiety 75834532 F41.9 Hydroxyzin e 25 mg po qhs; has tolerated well in the past. correct use reviewed Candidiasi s of mouth and esophagus 245556581 B37.81 no allergies to azoles.flu conazole qd x 14 dayscall if recurrent or intoleranc e [id number] Siddharth Metz MD Main Office [address] [place] [address] 05/13/2024 15:00:02 05/13/2024 15:18:57 Human immunodeficiency virus infection 98793124 B20 on Biktarvy 1 tab po qd.strict compliance reviewed.a void supplement s or keep them 6 hrs apart; ot take w Biktarvy w foodpt aware of PreP availabili ty. U=U reviewed.c ondom use for STI prevention COVID19, flu an dRSV vaccines recommende daware of DoxyPEP Folliculitis 13293633 L7 3.9 on topical mupirocin/ antibiotic PRNdoxycyc line suppressio n txavoid touching scabs Anxiety 28638607 F41.9 increase dose of Hydroxyzin e from 25 mg to 50mg po qhs; has tolerated well in the past. 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 pt aware this is not weight loss tx. [id number] Siddharth Metz MD Main Office [address] [place] [address] 08/22/2024 14:25:45 08/22/2024 15:20:57 Human immunodeficiency virus infection 92176796 B20 on Biktarvy 1 tab po qd.strict compliance reviewed to prevent VF, resistance and transmissi onclinical trial options reviewedla bs orderedavo id supplement s or keep them 6-8 hrs apart; or take w Biktarvy w foodpt aware of PreP and DOXYPEP availabili ty. U=U reviewed.c ondom use for STI prevention RSV and prevanr 20 recommende d Lipodystrophy 11421784 E 88.1 d/c Egrifta pt feels it is not working; and no further results. needs a break/inje ction fatigue; he is aware that abd fat could return while off Egrifta. will observe. Obesity 804120146 E66.9 zepbound to be ordered once labs reviewedpt has had chronic elevated lipase /amylase in the past ; no clinical pancreatit is hx; has seen GI and workup has been negative.i instructed him to discuss safety og GLP1 with GI in setting of lab finding.wi ll order CMP, lipase and other testing as needed [id number] Siddharth Metz MD Main Office [address] [place] [address] 11/22/2024 13:46:09 11/22/2024 14:38:21 Human immunodeficiency virus infection 25409276 B20 on Biktarvy 1 tab po qd.strict compliance reviewed to prevent VF, resistance and transmissi onclinical trial options reviewedla bs orderedavo id supplement s or keep them 6-8 hrs apart; or take w Biktarvy w foodpt aware of PreP and DOXYPEP availabili ty. U=U reviewed.c ondom use for STI prevention Lipodystrophy 78912567 E 88.1 d/c Egrifta pt feels it is not working; and no further results. needs a break/inje ction fatigue; he is aware that abd fat could return while off Egrifta. will observe. [id number] Siddharth Metz MD Main Office [address] [place] [address] [place], [place] [address] 02/22/2025 13:56:30 02/22/2025 14:46:09 Human immunodeficiency virus infection 04881866 B20 on Biktarvy 1 tab po qd.strict compliance reviewed to prevent VF, resistance and transmissi onclinical trial options reviewedla bs ordered; he took order with him.avoid supplement s or keep them 6-8 hrs apart; or take w Biktarvy w foodpt aware of PreP and DOXYPEP availabili ty. U=U reviewed.c ondom use for STI prevention Lipodystrophy 36500165 E 88.1 d/c Egrifta pt feels it is not working; and no further results. needs a break/inje ction fatigue; he is aware that abd fat could return while off Egrifta. will observe.GL P1's reviewed in the past; has not prescribed due to baseline asymptomat ic elevated lipase. Anxiety 90589700 F41.9 75259 increase dose of Hydroxyzin e 50mg po qhs; has tolerated well in the past. correct use reviewedne eds refill of the 50mg tablets Methicilli n resistant Staphylococcus aureus infection 338237999 A49.02 902409 on qd Doxycyclin e suppressio n tx [...] Gunn Member ID Guarantor Name 02/19/2025 1 [employer] PLAN (HMO) [facility] Roni Willson [id number] Roni Willson 02/19/2025 2 MEDICAID-[place]: [facility] Roni Willson [id number] Roni Willson Notes Date Note Type Note Provider Name and Address Organization Details Recorded Time 02/10/2024 text/html ROS as noted in the HPI f/u HIVon Biktarvy 1 tab po qd.compliant w Biktarvymed list reviewed.labs reviewed with him01/2024 HIV VL nondetected; AST/SUSAN wnl; GC/chlamydia neg; HCV neg; treponemal ab neg; eGFR= 67 TO4=7519/2023 722; HIV VL nondetected; 3GFR>70; ALt/AST wnl;08/2023 PJ9=541; aslt/ast wnl; eGFR>60; HCV neg; GC negative; no wfyszerh28/1/23 HIV VL=43; no HCV. no syphilis; ALT/ASt [...] for suppression tx. helping. Siddharth Metz MD [address] [place] [address], [phone], [place] - SIDDHARTH METZ MD [facility] 02/10/2024 17:12:16 05/13/2024 text/html ROS as noted in the HPI f/u HIVon Biktarvy 1 tab po qd.compliant w Biktarvymed list reviewed.labs [facility] with [facility]01/2024 HIV VL nondetected; AST/SUSAN wnl; GC/chlamydia neg; HCV neg; treponemal ab neg; eGFR= 67 ZQ4=8276/2023 722; HIV VL nondetected; 3GFR>70; ALt/AST wnl;08/2023 BE8=594; aslt/ast wnl; eGFR>60; HCV neg; GC negative; no zeubhlpn31/1/23 HIV VL=43; no HCV. no syphilis; ALT/ASt [...] for suppression tx. helping. Siddharth Metz MD [address] [place] [address], [phone], [place] - SIDDHARTH METZ MD [facility] 05/13/2024 16:22:23 08/22/2024 text/html ROS as noted in the HPI f/u HIVon Biktarvy 1 tab po qd.compliant w Biktarvyhappy w med.med list reviewed.labs reviewed with himhas female partner. aware of PreP and DOXYPEPnot [...] HCV neg; treponemal ab neg; eGFR= 67 CD8=3635/2023 722; HIV VL nondetected; 3GFR>70; ALt/AST wnl;08/2023 UN0=210; aslt/ast wnl; eGFR>60; HCV neg; GC negative; no qkhpreuz74/1/23 HIV VL=43; no HCV. no syphilis; ALT/ASt wbl; eGFR-75; no GC/no chlamydia08/2022 HIV VL nondetcetd; ALT/AST wnl; eGFR>60; Siddharth Metz MD [address] [place] [address], [phone], CORAZON METZ MD [facility] 08/28/2024 11:41:13 11/22/2024 text/html ROS as [...] HCV neg; treponemal ab neg; eGFR= 67 IH5=1385/2023 722; HIV VL nondetected; 3GFR>70; ALt/AST wnl;08/2023 FI1=416; aslt/ast wnl; eGFR>60; HCV neg; GC negative; no syazhxhe03/1/23 HIV VL=43; no HCV. no syphilis; ALT/ASt wbl; eGFR-75; no GC/no chlamydia08/2022 HIV VL nondetcetd; ALT/AST wnl; eGFR>60; Siddharth Metz MD [address] [place] [address], [phone], CORAZON METZ MD [facility] 11/23/2024 12:17:08 02/22/2025 text/html ROS as [...] HCV neg; treponemal ab neg; eGFR= 67 TL1=5200/2023 722; HIV VL nondetected; 3GFR>70; ALt/AST wnl;08/2023 NB4=720; aslt/ast wnl; eGFR>60; HCV neg; GC negative; no pmwjijzo17/1/23 HIV VL=43; no HCV. no syphilis; ALT/ASt wbl; eGFR-75; no GC/no chlamydia08/2022 HIV VL nondetcetd; ALT/AST wnl; eGFR>60; Siddharth Metz MD [address] [place] [address], [place], [phone], [facility] - SIDDHARTH METZ MD [facility] 02/22/2025 16:17:56
--- OUTSIDE RECORDS SUMMARY | 2025-05-16 09:16 | XMS_ITS | Clinical Summary ---
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 1 each 08/30/19 Active omeprazole (PriLOSEC) [address] capsule [...] DAY 30 tablet 2 02/09/20 25 Active aspirin 81 mg chewable tablet Chew 1 tablet (81 mg total) 1 (one) time each day. Active meclizine (ANTIVERT) 25 mg tablet Take 1 tablet (25 mg total) by mouth 3 (three) times a day if needed for dizziness. 90 tablet 1 04/18/20 25 Active simvastatin (ZOCOR) 20 mg tablet TAKE 1 TABLET BY MOUTH EVERYDAY AT BEDTIME 90 tablet 1 04/25/20 25 Active simvastatin (ZOCOR) 20 mg tablet Take 1 tablet (20 mg total) by mouth at bedtime. 90 tablet 1 10/27/19 25 025 Discontinued meclizine (ANTIVERT) 25 mg tablet TAKE 1 TABLET BY MOUTH 3 TIMES A DAY IF NEEDED FOR DIZZINESS. 90 tablet 1 02/17/20 25 025 Discontinued Active Problems Problem Noted [...] he understands. Sacroiliitis ([facility] V24) 02/07/2022 Overview (04/25/2024): Last Assessment & Plan: Mr. Willson is being followed at [facility] by Dr. Carreno where he [...] Encounters Date Type Department Care Team Description 05/04/2025 Telephone Internal Medicine - [place] 175 [facility] [address] [place] [address] Kalli Andrade MA 03/30/2025 8:15 AM EDT Office Visit Internal Medicine - [place] 175 [facility] [address] [place] [address] Gregg Todd MD Dizziness (Primary Dx); Hypercholesterolemia; Current mild episode of major depressive disorder, unspecified whether recurrent ([facility] V24); Mild intermittent asthma without complication 03/06/2025 Telephone [facility] [address] [facility] [address] [place] [address] Diann Sousa NP from Last 3 Months Immunizations Immunization Administration Dates Next Due DTaP (Infanrix) 6wks to less than 7yo 07/29/2012 Hepatitis A Adult (Havrix; V aqta) 19yo and older 08/10/2015 Hepatitis B (Wgnqddi-I-Clljb , Recombivax HB-Adult) 19yo and older 02/20/2017,09/12/2016,08/15/2016 [...] immunodeficiency virus infection) ([facility] V24, [facility] V28) 01/04/2019 DX:HIV (human im munodeficiency virus infection) ([facility]) Hypertension 01/04/2019 DX:Hypertension Spinal stenosis, [...] immunodeficiency virus infection) ([facility] V24, [facility] V28) DX:HIV (human im munodeficiency virus infection) ([facility]) Hemorrhoid Anemia Family History Medical [...] for your loved ones. For example, child and adolescent psychologist or elderly care for an older adult? [...] 2:15 PM EST Office Visit Pulmonology - [place] [address] [phone] Felicia Sparrow MD [address] [place] [phone] 09/28/2025 8:15 AM EDT Office Visit Internal Medicine - [place] [address] [phone] Gregg Todd MD [address] [address] Health Maintenance Due Date Last Done Comments [...] Visit 05/24/2022 COVID-19 Vaccine (4 - season) 2025 03/24/2023, [...] virus (HIV) disease ([facility] V24, [facility] V28) COMPREHENSIVE METABOLIC PANEL Routine 03/06/2025 10:08 [...] virus (HIV) disease (CMS/HCC V24, CMS/HCC V28) COLONOSCOPY Routine 12/08/2024 8:58 AM EDT Colon [...] LAB CHEMISTRY METHOD 03/06/2025 4:30 PM EDT [facility] Blood Venous blood specimen / Unknown Venipuncture / Unknown 03/06/2025 10:08 AM EDT 03/06/2025 10:08 AM EDT us Юлия Angel MD LAB BLOOD ORDERABLES Una l Result [facility] [address] [place] [address], [place] [phone] * (ABNORMAL) Lipid panel with reflex to direct LDL (03/06/2025 10:08 AM EDT) Cholesterol 187 0 - 200 mg/dL LAB CHEMISTRY METHOD 03/06/2025 3:32 PM EDT [facility] Triglycerides 188(H) 0 - 150 mg/dL LAB CHEMISTRY METHOD 03/06/2025 3:32 PM EDT [facility] HDL 53 >=40 mg/dL LAB CHEMISTRY METHOD 03/06/2025 3:32 PM EDT [facility] LDL Calculated 96 0 - 100 mg/dL LAB CHEMISTRY METHOD 03/06/2025 3:32 PM EDT [facility] Comment:Estimated LDL Calcul ated using equation: Total cholesterol - HDL cholesterol - (Triglycerides/5) VLDL Cholesterol Yovany 37.6 mg/dL LAB CHEMISTRY METHOD 03/06/2025 3:32 PM EDT [facility] Non HDL Chol. (LDL+VLDL) 134 <145 mg/dL LAB CHEMISTRY METHOD 03/06/2025 3:32 PM EDT [facility] Chol/HDL Ratio 3.5 0.0 - 4.4 LAB CHEMISTRY METHOD 03/06/2025 3:32 PM [facility] Blood Venous blood specimen / Unknown Venipuncture / Unknown 03/06/2025 10:08 AM EDT 03/06/2025 10:08 AM EDT us Gregg Todd MD LAB BLOOD ORDERABLES Final Resul t [facility] [address] [place] [address], [place] [phone] * (ABNORMAL) CBC auto differential (03/06/2025 10:08 AM EDT) WBC 5.8 4.8 - 10.8 K/mcL LAB HEMETOLOGY METHOD 03/06/2025 2:10 PM EDT [facility] RBC 4.60 4.50 - 5.50 M/mcL LAB HEMETOLOGY METHOD 03/06/2025 2:10 PM EDT [facility] Hemoglobin 13.6 13.5 - 17.5 g/dL LAB HEMETOLOGY METHOD 03/06/2025 2:10 PM EDT [facility] Hematocrit 42.6 42.0 - 54.0 % LAB HEMETOLOGY METHOD 03/06/2025 2:10 PM EDT [facility] MCV 93.4 79.0 - 98.0 FL LAB HEMETOLOGY METHOD 03/06/2025 2:10 PM EDT [facility] MCH 29.8 27.0 - 32.0 pcg LAB HEMETOLOGY METHOD 03/06/2025 2:10 PM EDT [facility] MCHC 31.9(L) 32.0 - 37.0 g/dL LAB HEMETOLOGY METHOD 03/06/2025 2:10 PM EDT [facility] RDW 14.1 11.0 - 15.0 % LAB HEMETOLOGY METHOD 03/06/2025 2:10 PM EDT [facility] Platelets 265 130 - 400 K/mcL LAB HEMETOLOGY METHOD 03/06/2025 2:10 PM EDT [facility] MPV 11.2(H) 7.0 - 11.0 FL LAB HEMETOLOGY METHOD 03/06/2025 2:10 PM EDT [facility] NRBC 0.0 <1.0 % LAB HEMETOLOGY METHOD 03/06/2025 2:10 PM EDT [facility] NRBC Absolute 0.00 <0.10 K/mcL LAB HEMETOLOGY METHOD 03/06/2025 2:10 PM EDT [facility] Neutrophils Relative 57.4 % LAB HEMETOLOGY METHOD 03/06/2025 2:10 PM EDT [facility] Lymphocytes Relative 28.9 % LAB HEMETOLOGY METHOD 03/06/2025 2:10 PM [facility] Monocytes Relative 11.2 % LAB HEMETOLOGY METHOD 03/06/2025 2:10 PM [facility] Eosinophils Relative 1.7 % LAB HEMETOLOGY METHOD 03/06/2025 2:10 PM T [facility] Basophils Relative 0.5 % LAB HEMETOLOGY METHOD 03/06/2025 2:10 PM [facility] Immature Granulocytes Relative 0.3 % LAB HEMETOLOGY METHOD 03/06/2025 2:10 PM [facility] Neutrophils Absolute 3.33 1.50 - 7.00 K/mcL LAB HEMETOLOGY METHOD 03/06/2025 2:10 PM EDT [facility] Lymphocytes Absolute 1.68 1.00 - 5.00 K/mcL LAB HEMETOLOGY METHOD 03/06/2025 2:10 PM EDT [facility] Monocytes Absolute 0.65 0.20 - 1.00 K/mcL LAB HEMETOLOGY METHOD 03/06/2025 2:10 PM [facility] Eosinophils Absolute 0.10 0.00 - 0.50 K/mcL LAB HEMETOLOGY METHOD 03/06/2025 2:10 PM EDT [facility] Basophils Absolute 0.03 0.00 - 0.20 K/[facility] LAB HEMETOLOGY METHOD 03/06/2025 2:10 PM EDT [facility] Immature Granulocytes Absolute 0.02 0.00 - 0.03 K/[facility] LAB HEMETOLOGY METHOD 03/06/2025 2:10 PM EDT [facility] Blood Venous blood specimen / Unknown Venipuncture / Unknown 03/06/2025 10:08 AM EDT 03/06/2025 10:08 AM EDT Юлия Angel MD LAB BLOOD ORDERABLES Una l Result [facility] [address] [place] [address], [place] [phone] * Lymphocyte T-cell panel (03/06/2025 10:08 AM EDT) CD4 680 426 - 1,776 cells/mcL 03/10/2025 9:23 AM EDT [facility] CD8 314 161 - 838 cells/mcL 03/10/2025 9:23 AM EDT [facility] CD4/CD8 Ratio 2.17 0.90 - 4.90 03/10/2025 9:23 AM EDT [facility] CD4 % 48 33 - 64 % 03/10/2025 9:23 AM EDT [facility] CD8 % 22 10 - 39 % 03/10/2025 9:23 AM EDT [facility] Blood Venous blood specimen / Unknown Venipuncture / Unknown 03/06/2025 10:08 AM EDT 03/06/2025 10:08 AM EDT Юлия Angel MD LAB MOLECULAR DIAGNOSTICS ORDERABLES Final Result [facility] [address] [place] [address], [place] [phone] * (ABNORMAL) HIV 1 molecular study quantitative (03/06/2025 10:08 AM EDT) [facility] HIV-1 RNA Interpretation Detected (A) Not Detected LAB MOLECULAR DIAGNOSTICS METHOD 03/07/2025 2:53 PM EDT [facility] HIV-1 RNA Copies <20 <20 copies/mL LAB MOLECULAR DIAGNOSTICS METHOD 03/07/2025 2:53 PM EDT [facility] Comment:HIV RNA detected but below the limit of quantitation. Unable to report quantitative results <20 copies/mL. HIV-1 RNA Log <1.30 <1.30 Log 10 copies/mL LAB MOLECULAR DIAGNOSTICS METHOD 03/07/2025 2:53 PM EDT [facility] Blood Venous blood specimen / Unknown Venipuncture / Unknown 03/06/2025 10:08 AM EDT 03/06/2025 10:08 AM EDT us Юлия Angel MD LAB BLOOD ORDERABLES Una tovar Result [facility] [address] [place] [address], [place] [phone] * Thyroid stimulating hormone (03/06/2025 10:08 AM EDT) [facility] TSH 2.33 0.40 - 4.00 mcIU/mL LAB CHEMISTRY METHOD 03/06/2025 4:19 PM EDT [facility] Blood Venous blood specimen / Unknown Venipuncture / Unknown 03/06/2025 10:08 AM EDT 03/06/2025 10:08 AM EDT Gregg Todd MD LAB BLOOD ORDERABLES Maxine Resul t [facility] [address] [place] [address], [place] [phone] * (ABNORMAL) Comprehensive metabolic panel (03/06/2025 10:08 AM EDT) Sodium 138 133 - 145 mmol/L LAB CHEMISTRY METHOD 03/06/2025 3:34 PM [facility] Potassium 5.2 3.5 - 5.5 mmol/L LAB CHEMISTRY METHOD 03/06/2025 3:34 PM [facility] Chloride 107 96 - 110 mmol/L LAB CHEMISTRY METHOD 03/06/2025 3:34 PM [facility] CO2 27 21 - 32 mmol/L LAB CHEMISTRY METHOD 03/06/2025 3:34 PM [facility] Anion Gap 4 3 - 11 LAB CHEMISTRY METHOD 03/06/2025 3:34 PM [facility] Glucose 93 70 - 100 mg/dL LAB CHEMISTRY METHOD 03/06/2025 3:34 PM [facility] BUN 19 5 - 25 mg/dL LAB CHEMISTRY METHOD 03/06/2025 3:34 PM [facility] Creatinine 1.08 0.70 - 1.30 mg/dL LAB CHEMISTRY METHOD 03/06/2025 3:34 PM [facility] eGFR 78 >=60 mL/min/1. 73m2 LAB CHEMISTRY METHOD 03/06/2025 3:34 PM [facility] Comment:Calculation based on the Chronic Kidney Disease Epidemiology Collaboration (CKD-EPI) equation refit without adjustment for race. BUN/Creatinine Ratio 17.6 LAB CHEMISTRY METHOD 03/06/2025 3:34 PM [facility] Calcium 9.7 8.5 - 10.5 mg/dL LAB CHEMISTRY METHOD 03/06/2025 3:34 PM [facility] AST (SGOT) 18 10 - 42 unit/L LAB CHEMISTRY METHOD 03/06/2025 3:34 PM [facility] ALT (SGPT) 25 10 - 60 unit/L LAB CHEMISTRY METHOD 03/06/2025 3:34 PM EDT [facility] Alkaline Phosphatase 164(H) 42 - 121 unit/L LAB CHEMISTRY METHOD 03/06/2025 3:34 PM EDT [facility] Total Protein 7.5 6.0 - 8.0 g/dL LAB CHEMISTRY METHOD 03/06/2025 3:34 PM EDT [facility] Albumin 4.3 3.2 - 5.0 g/dL LAB CHEMISTRY METHOD 03/06/2025 3:34 PM EDT [facility] Total Bilirubin 0.5 0.0 - 1.4 mg/dL LAB CHEMISTRY METHOD 03/06/2025 3:34 PM EDT [facility] Blood Venous blood specimen / Unknown Venipuncture / Unknown 03/06/2025 10:08 AM EDT 03/06/2025 10:08 AM EDT Gregg Todd MD LAB BLOOD ORDERABLES Final Resul t [facility] [address] [place] [address], * COLONOSCOPY Anesthesia - MAC; [facility] ENDOSCOPY (12/08/2024 8:58 AM EDT) Anatomical Region Laterality Modality Other 12/08/2024 8:30 AM EDT Impressions 12/08/2024 8:59 AM EDT - Internal hemorrhoids. - Diverticulosis in the sigmoid colon. - No specimens collected. Recommendation: - Use fiber, for example Citrucel, Fibercon, Konsyl or Metamucil. - Repeat colonoscopy in 10 years for screening purposes. Narrative 12/08/2024 8:59 AM EDT [facility] Patient Name: Roni Willson Procedure Date: [...] or abscess without bleeding CPT copyright 2020 [employer]. All rights reserved. The codes documented in this report are preliminary and upon hotbed transfer operator review may be revised to meet current compliance requirements. Alok Mccormack MD 12/08/2024 8:59:00 AM This report has been signed electronically.Alok Mccormack MD Number of Addenda: 0 Note Initiated On: 12/08/2024 8:30 AM Scope In: Scope Out: Endoscopy Department at [facility] - [address] [place] [phone] Procedure Note Alok Mccormack MD - 12/08/2024 [facility] Patient Name: Roni Willson Procedure Date: [...] or abscess without bleeding CPT copyright 2020 [employer]. All rights reserved. The codes documented in this report are preliminary and upon hotbed transfer operator reviewmay be revised to meet current compliance requirements. Alok Mccormack MD 12/08/2024 8:59:00 AM This report has been signed electronically.Alok Mccormack MD Number of Addenda: 0 Note Initiated On: 12/08/2024 8:30 AM Scope In: Scope Out: Endoscopy Department at [facility] - [address] [place] [phone] IMPRESSION: - Internal hemorrhoids. - Diverticulosis in [...] 12:18 PM EDT [facility] Hep B Core IgM Negative [...] Resul t [facility] [address] [place] [address], from Last 3 Months or Most Recently Relevant to Health Maintenance Insurance [employer] Member Subscriber Plan / Payer (Ef fective 2023-Present) Name:RONI WILLSON Relation to Subscriber:Self Name:Roni Willson Payer ID:[id number] Group ID:[id number] Type:Not on file Address: [address] [id number] MEDICAID - [place] Care Teams Computerized Mill [employer] Recorder Relationship Specialty Start Date End Date Gregg Todd MD 175 [facility] [address] [place] [address] PCP - General Internal Medicine 04/17/21
--- OUTSIDE RECORDS SUMMARY | 2025-05-16 09:16 | XMS_ITS | Continuity of Care Document ---
Author Organization RANDALL CARRERA MD [facility], Main Office Address [address] [place] [address] Assessment No assessment recorded. Plan of Treatment Reminders Order Date Submit Date Provider Last Modified By Organization Details Last Modified Time Details Appointments B20 FOLLOW UP 2024 02:00P Bret Angel MD Not available Not available Not available Lab CBC w/ diff 2024 025 [facility], [address] [place] [address], [id number], 03/01/2025 12:45:04 HIV-1 RNA, quantitat patricia, PCR, serum or plasma 2024 025 [facility], [address] [place] [address], [id number], 03/01/2025 12:45:04 RPR (rapid plasma reagin), serum 2024 025 [facility], [address] [place] [address], [id number], 03/01/2025 12:45:04 T-cell regulator y subsets panel, blood 2024 025 [facility], [address] [place] [address], [id number], 03/01/2025 12:45:04 creatinin e w/ estimated GFR (eGFR), serum or plasma 2024 025 [facility], [address] [place] [address], [id number], 03/01/2025 12:45:04 AST/SGOT (aspartat e aminotran sferase), serum or plasma [address] [email or web address] [facility], [address] [facility], [facility] [address], [place], [address], 03/01/2025 12:45:04 ALT (alanine aminotran sferase), serum or plasma 2024 025 [place] [address] [email or web address] [facility], [address] [facility], [place], [address], 03/01/2025 12:45:04 Referral None recorded. Procedures None recorded. Surgeries None recorded. Imaging None recorded. Medication Orders mupirocin 2 % topical ointment [address] [place], [place] [address]Pharmacy #[id number], [address] [place], [address], 02/22/2025 14:42:30 hydroxyzi ne HCl 50 mg tablet [address] [place], [place] [address]Pharmacy #[id number], [address] [place], [address], 02/22/2025 14:42:01 Biktarvy 50 mg-200 mg-25 mg tablet [address] [place], [place] [address]Pharmacy #[id number], [address] [place], [address], 02/22/2025 14:42:01 Patient TargetsNo targets recorded. Patient InstructionsNo instructions recorded. Reason for Referral None Reported. Problems Name Problem SNOMED Code Status Onset Date Resolution Date Notes Provider Name and Address Organization Details Recorded Time Dizziness and giddiness 040944477 Active 2003 Dizziness and giddiness; snomeddesc ription: Vertigo; Report Immunity to Registry: Yes; Notes: vertigo; Not Available [facility] 4 06:58:27 Vertigo 689921367 Active 2003 Vertigo; snomeddesc ription: Vertigo; Report Immunity to Registry: Yes; Notes: vertigo; Not Available [facility] 4 06:58:30 Primary malignant neoplasm of skin 52403086 Active 2004 Unspecifie d malignant neoplasm of skin, unspecifie d; snomeddesc ription: Malignant neoplasm of skin; Report Immunity to Registry: Yes; Notes: basal cell forearm; removed surgical; not active; Remote; Not Available [facility] 4 06:58:26 Insomnia 582203429 Active 2004 Insomnia; Report Immunity to Registry: Yes; Not Available [facility] 4 06:58:27 Depressiv e disorder 00514881 Active 2004 Other specified depressive episodes; snomeddesc ription: Symptoms of depression ; Report Immunity to Registry: Yes; Notes: derpession /anxiety/i nsomnia hx; Not Available [facility] 4 06:58:29 Symptoms of depressio n 812048911 Active 2004 Symptoms of depression ; snomeddesc ription: Symptoms of depression ; Report Immunity to Registry: Yes; Notes: derpession /anxiety/i nsomnia hx; Not Available [facility] 4 06:58:29 Anxiety 97751206 Active 2004 Anxiety; snomeddesc ription: Anxiety; Report Immunity to Registry: Yes; Notes: panic disorder (chest pain/palpi tations)/d epression; Not Available [facility] 4 06:58:31 Malignant neoplasm of skin 945736756 Active 2004 Malignant neoplasm of skin; snomeddesc ription: Malignant neoplasm of skin; Report Immunity to Registry: Yes; Notes: basal cell forearm; removed surgical; not active; Remote; Not Available [facility] 4 06:58:31 Anxiety disorder 375700370 Active 2004 Anxiety disorder, unspecifie d; snomeddesc ription: Anxiety; Report Immunity to Registry: Yes; Notes: panic disorder (chest pain/palpi tations)/d epression; Not Available [facility] 4 06:58:32 Vitamin D deficienc y 51586249 Active 2009 Vitamin D deficiency ; Report Immunity to Registry: Yes; Not Available [facility] 4 06:58:29 Hemorrhoi ds 04231702 Active 2009 Hemorrhoid s; snomeddesc ription: Hemorrhoid s; Report Immunity to Registry: Yes; Notes: internal and external; Unspecifi ed hemorrhoid s; snomeddesc ription: Hemorrhoid s; Report Immunity to Registry: Yes; Notes: internal and external; Not Available [facility] 4 06:58:32 Nasal congestio n 62903413 Active 2009 Nasal congestion ; snomeddesc ription: Nasal congestion ; Report Immunity to Registry: Yes; Notes: sinusitis/ allergies; Nasal congestion ; snomeddesc ription: Nasal congestion ; Report Immunity to Registry: Yes; Notes: sinusitis/ allergies; Not Available [facility] 4 06:58:33 Gout 39682985 Active 2009 Gout; Report Immunity to Registry: Yes; Not Available [facility] 4 06:58:33 Ulcer of esophagus 51476236 Active 2010 Ulcer of esophagus; snomeddesc ription: Ulcer of esophagus; Report Immunity to Registry: Yes; Notes: EGD/biopsy 2014; ulcerative esophagiti s ; Ulcer of esophagus without bleeding; snomeddesc ription: Ulcer of esophagus; Report Immunity to Registry: Yes; Notes: EGD/biopsy 2014; ulcerative esophagiti s ; Not Available [facility] 4 06:58:27 Essential hypertens ion 25142832 Active 2010 Essential (primary) hypertensi on; snomeddesc ription: Hypertensi ve disorder; Report Immunity to Registry: Yes; Not Available [facility] 4 06:58:28 Hypertens patricia disorder 90800468 Active 2010 Hypertensi ve disorder; snomeddesc ription: Hypertensi ve disorder; Report Immunity to Registry: Yes; Not Available [facility] 4 06:58:28 Benign prostatic hyperplas ia 082708741 Active 2011 Benign prostatic hyperplasi a; snomeddesc ription: Benign prostatic hyperplasi a; Report Immunity to Registry: Yes; Benign prostatic hyperplasi a without lower urinary tract symptoms; snomeddesc ription: Benign prostatic hyperplasi a; Report Immunity to Registry: Yes; Not Available [facility] 4 06:58:28 Polyneuro randal 56927779 Active 2011 Polyneurop athy, unspecifie d; snomeddesc ription: Neuropathy ; Report Immunity to Registry: Yes; Not Available [facility] 4 06:58:29 Hyperlipi demia 02347333 Active 2011 Hyperlipid emia; snomeddesc ription: Hyperlipid emia; Report Immunity to Registry: Yes; Hyperlipi demia, unspecifie d; snomeddesc ription: Hyperlipid emia; Report Immunity to Registry: Yes; Not Available [facility] 4 06:58:32 Neuropath y 511324901 Active 2011 Neuropathy ; snomeddesc ription: Neuropathy ; Report Immunity to Registry: Yes; Not Available [facility] 4 06:58:33 Spasm 33865651 Active 2012 Muscle spasm; Report Immunity to Registry: Yes; Notes: upper/lowe r back/chron ic pain; Not Available [facility] 4 06:58:27 Chronic back pain 764749502 Active 2012 Chronic back pain; snomeddesc ription: Chronic back pain; Report Immunity to Registry: Yes; Notes: chronic back pain/gener alized pain back surgery 09/2018 dx l2-3 stenosis l2-3 decompessi on partial laminectom y medial fecetectom y foraminoto jose bilateral; Not Available [facility] 4 06:58:30 Pain in thoracic spine 222302294 Active 2012 Dorsalgia, unspecifie d; snomeddesc ription: Chronic back pain; Report Immunity to Registry: Yes; Notes: chronic back pain/gener alized pain back surgery 09/2018 dx l2-3 stenosis l2-3 decompessi on partial laminectom y medial fecetectom y foraminoto jose bilateral; Not Available [facility] 4 06:58:31 Furuncle 000686695 Active 2014 Furuncle; snomeddesc ription: Furuncle; Report Immunity to Registry: Yes; Notes: skin/forea christine/follic ulitis; Furuncle, unspecifie d; snomeddesc ription: Furuncle; Report Immunity to Registry: Yes; Notes: skin/forea christine/follic ulitis; Not Available [facility] 4 06:58:30 Herpesvir us infection 58543002 Active 2015 Herpesvira l infection, unspecifie d; snomeddesc ription: Herpes simplex; Report Immunity to Registry: Yes; Notes: HSV 1 pos w oral HSV sores; HSV 2 neg 2015; Not Available [facility] 4 06:58:26 Herpes simplex 75120712 Active 2015 Herpes simplex; snomeddesc ription: Herpes simplex; Report Immunity to Registry: Yes; Notes: HSV 1 pos w oral HSV sores; HSV 2 neg 2015; Not Available [facility] 4 06:58:27 Human immunodef iciency virus infection 60610267 Active 2015 Human immunodefi ciency virus infection; snomeddesc ription: Human immunodefi ciency virus infection; Report Immunity to Registry: Yes; Notes: [id number] neg ; Human immunodefi ciency virus [HIV] disease; snomeddesc ription: Human immunodefi ciency virus infection; Report Immunity to Registry: Yes; Notes: [id number] neg ; Not Available [facility] 4 06:58:32 Hemangiom a of intra-abd ominal structure 166092861 Active 2015 Hemangioma of intra-abdo maddi structures ; snomeddesc ription: Hemangioma of liver; Report Immunity to Registry: Yes; Not Available [facility] 4 06:58:28 Hemangiom a of liver 02016448 Active 2015 Hemangioma of liver; snomeddesc ription: Hemangioma of liver; Report Immunity to Registry: Yes; Not Available [facility] 4 06:58:31 Blood chemistry outside reference range 257783774 Active 2016 Other specified abnormal findings of blood chemistry; snomeddesc ription: Decreased testostero ne level; Report Immunity to Registry: Yes; Not Available [facility] 4 06:58:29 Testoster one level below reference range 390711085 Active 2016 Decreased testostero ne level; snomeddesc ription: Decreased testostero ne level; Report Immunity to Registry: Yes; Not Available [facility] 4 06:58:33 Tremor 08458055 Active 2017 Other specified forms of tremor; snomeddesc ription: Resting tremor; Report Immunity to Registry: Yes; Not Available [facility] 4 06:58:31 Resting tremor 24959058 Active 2017 Resting tremor; snomeddesc ription: Resting tremor; Report Immunity to Registry: Yes; Not Available [facility] 4 06:58:33 Kidney stone 53175466 Active 2018 Kidney stone; snomeddesc ription: Kidney stone; Report Immunity to Registry: Yes; Calculus of kidney; snomeddesc ription: Kidney stone; Report Immunity to Registry: Yes; Not Available [facility] 4 06:58:28 Gastroeso phageal reflux disease 443329456 Active 2018 Gastroesop hageal reflux disease; snomeddesc ription: Gastroesop hageal reflux disease; Report Immunity to Registry: Yes; Not Available [facility] 4 06:58:29 Gastroeso phageal reflux disease without esophagit is 005649742 Active 2018 Gastro-eso phageal reflux disease without esophagiti s; snomeddesc ription: Gastroesop hageal reflux disease; Report Immunity to Registry: Yes; Not Available [facility] 4 06:58:30 Diaphragm atic hernia 04364718 Active 2019 Diaphragma tic hernia without obstructio n or gangrene; snomeddesc ription: Hiatal hernia; Report Immunity to Registry: Yes; Notes: per PCP note; Not Available [facility] 4 06:58:27 Hiatal hernia 07121018 Active 2019 Hiatal hernia; snomeddesc ription: Hiatal hernia; Report Immunity to Registry: Yes; Notes: per PCP note; Not Available [facility] 4 06:58:32 Aphthous ulcer of mouth 346395119 Active 2019 Aphthous ulcer of mouth; snomeddesc ription: Aphthous ulcer of mouth; Report Immunity to Registry: Yes; Not Available [facility] 4 06:58:27 Recurrent aphthous stomatiti s 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 2019 Recurrent oral aphthae; snomeddesc ription: Aphthous ulcer of mouth; Report Immunity to Registry: Yes; Not Available [facility] 4 06:58:28 Erectile dysfuncti on 899177390 Active 2019 Male erectile disorder; Report Immunity to Registry: Yes; Notes: low testostero ne; Not Available [facility] 4 06:58:30 Chronic pain 72660525 Active 2020 Chronic pain; snomeddesc ription: Chronic pain; Report Immunity to Registry: Yes; Notes: Back/shoul erica.all body; Other chronic pain; snomeddesc ription: Chronic pain; Report Immunity to Registry: Yes; Notes: Back/shoul erica.all body; Not Available [facility] 4 06:58:26 Lipodystr ophy 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 [place], [address] , RANDALL ANGEL MD [facility] 3 02:42:40 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 Active 2022 [place], [address] , RANDALL ANGEL MD [facility] 3 02:42:52 Notes:osteoarthirtis ; Onset Date: 06/15/2013; Report Immunity to Registry: Yes; Notes: multiple/generalized; Some problems listed in Document: #[id number] could not be added to this patient's [...] qd; VACCINE_ IND: no; SU_FULL_ NAME: Siddharth Kothari guy; Not Available Not Available Not Available gabapenti [...] bid; VACCINE_ IND: no; SU_FULL_ NAME: Siddharth Chandracyrus tovar; Not Available Not Available Not Available meclizine 25 mg tablet TAKE 1 TABLET BY MOUTH 3 TIMES A DAY IF NEEDED FOR DIZZINES S. active Not Available Not Available No t Available doxycycli ne monohydra te 100 mg capsule monohydr ate 100 mg Quantity : 28; 0 refill(s ) 05/23 completed Frequenc y: bid; VACCINE_ IND: no; SU_FULL_ NAME: Siddharth Chandracyrus tovar; Not Available Not Available Not Available [...] completed VACCINE_ IND: no; SU_FULL_ NAME: Siddharth Chandracyrus tovar; Not Available Not Available Not Available [...] bid; VACCINE_ IND: no; SU_FULL_ NAME: Siddharth Chandracyrus tovar; Not Available Not Available Not Available [...] 30; VACCINE_ IND: no; SU_FULL_ NAME: Siddharth Prateekcyrus tovar; Not Available Not Available Not Available [...] tovar; Not Available Not Available Not Available Adacel [...] AT OWN PACE UNTIL 1/2 GONE & 2ND 1/2 5 HOURS BEFORE PROCEDUR E. active Not Available Not Available No t Available Prevnar 13 (PF) 0.5 mL intramusc ular syringe - Quantity : ; 0 refill(s ) 12/03 completed VACCINE_ IND: yes; VACCINE_ NAME: Pneumoco ccal conjugat e PCV 13; SU_FULL_ NAME: Siddharth tovar; VIS_DATE : 20:05:33 .0; Not Available Not [...] seasonal , injectab le; SU_FULL_ NAME: Siddharth Chandracyrus l; Not Available Not Available Not Available Afluria 45 mcg (15 mcg x 3)/0.5 mL intramusc ular suspensio n trivalen t Quantity : ; 0 refill(s ) 08/07 completed VACCINE_ IND: yes; VACCINE_ NAME: Influenz a, seasonal , injectab le; SU_FULL_ NAME: Siddharth Martcyrus l; Not Available Not Available Not Available Qvar [...] Not Available Not Available Not Avai lable Afluria Quad 60 mcg (15 mcg x [...] Vitals Date Recorded Body height Heart rate Body temperature Body mass index (BMI) Body weight Systolic And Diastolic Provider Name and Address Organization Details Last Updated DateTime 5 177.8 cm 72 /min 97.2 [degF] 27.5 kg/m2 91155.7 4 g 98/63 mm[Hg] Shahla ANGEL MD [facility] 14:03:50 Social History Question Answer Notes LastModified by Organizat ion Details LastModified Time Tobacco Smoking Status Never Smoker RANDALL Seaman MD [facility] 02/24/2023 15:11:34 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 Yes Night Blindness Information not available 02/24/2023 Are You Deaf Or Do You Have Serious Difficulty Hearing? No Information not available 02/24/2023 What Type Of Diet Are You Following? REGULAR Information not available 02/24/2023 Which Of Your Hands Is Dominant? Right [email or web address] Information not available 02/24/2023 Do You Use Your Seat Belt Or Car Seat Routinely? Yes [email or web address] Information not available 02/24/2023 Do You Have Difficulty Walking Or Climbing Stairs? Yes Back Pain [email or web address] Information not available 02/24/2023 Do You Have Any Dietary Restrictions? No Information not available 02/24/2023 Sex: Male Functional Status Question Answer Note LastModified by Organizat ion Details LastModified Time Do you have transportation difficulties? No Information not available 02/24/2023 Are you able to walk independently without assistance or assistive devices? [email or web address] Information not available 02/24/2023 Do you have difficulty doing errands alone? No [email or web address] Information not available 02/24/2023 Are you able to care for yourself independently? Yes [email or web address] Information not available 02/24/2023 Do you have difficulty dressing, bathing, grooming, or toileting? No [email or web address] Information not available 02/24/2023 Mental Status Question Answer Note LastModified by Organizat ion Details LastModified Time Do you feel stressed (tense, restless, nervous, or anxious, or unable to sleep at night)? [id number] [email or web address] Information not available 02/24/2023 Do you have difficulty concentrating, remembering or making decisions? No [email or web address] Information no t available 02/24/2023 Family History Nothing Reported Notes:Hypertension, Response Property: Yes; , Stroke, Response Property: Yes; Medical History Condition Response Anxiety Disorder Y AIDS/HIV Y Depression Y Immunizations Vaccine Type Date Status Note Provider Joaquín scruggs and Address Organization Details Recorded Time COVID-19, mRNA, LNP-S, PF, 50 mcg/0.5 mL 03/24/2023 completed Tiff maya [place] - SIDDHARTH ANGEL MD [facility] 11/04/2023 14:39:33 Past Encounters Encounter ID Performer Location Encounter Start Date Encounter Closed Date Diagnosis/Indication Diagnosis SNOMED-CT Code Diagnosis ICD10 Code Diagnosis IMO Codes Diagnosis Note [id number] Siddharth Angel MD Main Office [address] [place] [address] RANDALL BONDS [phone] 02/22/2025 13:56:30 02/22/2025 14:46:09 Human immunodeficiency virus infection 43779216 B20 on Biktarvy 1 tab po qd.strict compliance reviewed to prevent VF, resistance and transmissi onclinical trial options reviewedla bs ordered; he took order with him.avoid supplement s or keep them 6-8 hrs apart; or take w Biktarvy w foodpt aware of PreP and DOXYPEP availabili ty. 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 needs a break/inje ction fatigue; he is aware that abd fat could return while off Egrifta. will observe.GL P1's reviewed in the past; has not prescribed due to baseline asymptomat ic elevated lipase. Anxiety 87455107 F41.9 48592 increase dose of Hydroxyzin e 50mg po qhs; has tolerated well in the past. correct use reviewedne eds refill of the 50mg tablets Methicilli n resistant Staphylococcus aureus infection 102666778 A49.02 588849 on qd Doxycyclin e suppressio n tx PRN. to decrease frequency and severity of flareups.m upirocin prescribed PRN Health Concerns Section Related Observation LastModified by Organization Detai ls LastModified Time None Recorded Concern Status LastModified by Organization Details LastModified Time None Recorded Payers Encounter Date Sequence Insurance Name Policy Number Policy Gunn Covered Member ID Gunn Member ID Guarantor Name 02/22/2025 1 [facility] Roni Willson [id number] Roni Willson 02/22/2025 2 [place]: [facility] Roni Willson [id number] Roni Willson Notes Date Note Type Note Provider Name and Address Organization Details Recorded Time 02/22/2025 text/html ROS as noted in the HPI f/u HIVon Biktarvy 1 tab po qd.compliant w Biktarvyhappy w med.med list reviewed.labs reviewed with sylvia STI sx: no rash. no abd pain. [...] HCV neg; treponemal ab neg; eGFR= 67 JM5=0332/2023 722; HIV VL nondetected; 3GFR>70; ALt/AST wnl;08/2023 JM1=465; aslt/ast wnl; eGFR>60; HCV neg; GC negative; no ssiqaclm91/1/23 HIV VL=43; no HCV. no syphilis; ALT/ASt wbl; eGFR-75; no GC/no chlamydia08/2022 HIV VL nondetcetd; ALT/AST wnl; eGFR>60; Siddharth Angel MD [address] [place] [address], [phone], [facility] - SIDDHARTH ANGEL MD [facility] 02/22/2025 16:17:56
--- OUTSIDE RECORDS SUMMARY | 2025-05-16 09:16 | XMS_ITS | Encounter Summary ---
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 Role Phone Gregg Todd MD Primary Care Provider [phone] Reason for Referral * Consultation (Routine) - Pending Review Specialty Diagnoses / Procedures Referred By Conthardik t Referred To Contact General Surgery Diagnoses Abdominal hernia without obstruction and without gangrene, recurrence not specified, unspecified hernia type Gregg Todd MD [address] [facility] [address] [place] [address] Phone: tel: fax: Referral ID Status Reason Start Date Expiration Date Visits Requested Visits Authorized [id number] Pending Review Specialty Services Required 05/10/2026 1 1 Reason for Visit * Reason Onset Date Comments Perez: Referral 05/04/2025 Encounter Details Date Type Department Care Team ([facility] st Contact Info) Description 05/04/2025 Telephone Internal Medicine - [address] [place] [id number] Kalli Andrade MA Social History Tobacco Use Types Packs/Day [...] for your loved ones. For example, children's literature professor or elderly care for an older adult? [...] documented in this encounter Progress Notes * Izabella Bardales MA - 05/10/2025 11:11 AM EST Referral was pended and send to Dr Todd for signature. * Kalli Andrade MA - 05/04/2025 3:34 PM EST Insurance referral for Dr. Dale Horn, Date: 05/16/25, 6 Visits DX code: K46.9 documented in this encounter Plan of Treatment Upcoming Encounters Date Type Department Care Team (Late st Contact Info) Description 05/31/2025 2:15 PM EST Office Visit Pulmonology - [place] [address] [phone] Felicia Sparrow MD [address] [place] [phone] 09/28/2025 8:15 AM EDT Office Visit Internal Medicine - [place] [address] [phone] Gregg Todd MD [address] [address] Scheduled Referrals Name Type Priority Associated Diagnoses Order Schedule Ambulatory referral to General Surgery Outpatient Referral Routine Abdominal hernia without obstruction and without gangrene, recurrence not specified, unspecified hernia type 1 Occurrences starting 05/10/2025 until 05/10/2026 documented as of this encounter Visit Diagnoses Diagnosis Abdominal hernia without obstruction and without gangrene, recurrence not specified, unspecified hernia type- Primary documented in this encounter Additional Health Concerns Assessment Noted Time PHQ-9 Depression Total Score: 10 025 9:46 PM EDT documented as of this encounter Care Teams 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
== END 2025-05-16 09:20 | disposition home or self-care (01) ==
LOC: HO.HGS 08:56
PROVIDERS: PCP Internal Medicine; Visit Provider Surgery
DX: K46.9 Unspecified abdominal hernia without obstruction or gangrene (principal)
CPT/HCPCS: 99203

== ENCOUNTER → 2025-05-16 08:55 | Outpatient (BNVA) | payer MEDICARE, MEDICAID, SELFPAY | PROVIDERS: PCP Internal Medicine; Visit Provider Surgery | DX: K46.9 Unspecified abdominal hernia without obstruction or gangrene (principal) | CPT/HCPCS: 99202 ==

== ENCOUNTER 2025-06-05 09:18 | Outpatient (AMB) | payer MEDICARE, MEDICAID, SELFPAY ==
--- OUTSIDE RECORDS SUMMARY | 2025-05-31 14:15 | XMS_ITS | Encounter Summary ---
Author Organization [facility] Address [address] [place] [address] Care Team Providers Care Trauma Coordinator Name Role Phone Gregg Todd MD Primary Care Provider [phone] Reason for Visit * Reason Comments Asthma Encounter Details Date Type Department Care Team ([facility] st Contact Info) Description 05/31/2025 2:15 PM EST Office Visit Pulmonology - [address] [place] [address] Felicia Sparrow MD [address] [place] [phone] Moderate persistent asthma, unspecified whether complicated (Primary Dx); Lung nodules; Elevated diaphragm; Restrictive lung disease; Dyspnea, unspecified type Social History Tobacco Use Types Packs/Day Years [...] care for your loved ones. For example, registered nurse maternal child or elderly care for an [...] Sign Reading Time Taken Comments Blood Pressure 137/83 05/31/2025 2:05 PM EST Pulse 62 05/31/2025 2:05 PM EST Temperature - - Respiratory Rate - - Oxygen Saturation 100% 05/31/2025 2:05 PM EST Inhaled Oxygen Concentration - - Weight 91.2 kg (201 lb) 05/31/2025 2:05 PM EST Height - - Body Mass Index 28.03 03/30/2025 8:31 AM EDT documented in this [...] Jennifer Alex RN documented in this encounter Ordered Prescriptions Prescription Sig Dispense Quantity Refills Last Filled Start Date End Date budesonide-formote roL (SYMBICORT) 160-4.5 mcg/actuation inhaler Inhale 2 puffs by mouth 2 (two) times a day. Rinse mouth with water after use to reduce aftertaste and incidence of candidiasis. Do not swallow. 1 each 05/31/2025 documented in this encounter Progress Notes * Felicia Sparrow MD - 05/31/2025 2:15 PM EST ADULT PULMONARY Followup CHIEF COMPLAINT : Asthma Last seen 06/30/24 HISTORY OF PRESENT ILLNESS: Roni Willson is a 60 y.o. old, ACT: 17. Since last seen: -Arnuity was change to Qvar 80 mcg, 2 puffs BID. REVIEW OF SYSTEMS: Review of Systems Constitutional: Positive for malaise/fatigue. Cardiovascular: Positive for dyspnea on exertion and paroxysmal nocturnal dyspnea. Respiratory: Positive for shortness of breath and wheezing. Musculoskeletal: Positive for myalgias. ALLERGIES: Current Allergies[1] ACTIVE MEDICATIONS: Medications Taking[2] PROVIDER ATTESTS THAT THE MEDICATION LIST WAS [...] 03/06/2015 Chronic sinusitis 07/01/2013 Gout 10/08/2011 Surgical History[3] Surgical History[4] FAMILY HISTORY: Family History[5] SOCIAL HISTORY Social History Socioeconomic History Marital [...] file IMMUNIZATION: Immunization History Administered Date(s) Administered COVID-19 (Moderna/Spikevax) 12yo and older 03/24/2023 DTaP (Infanrix) 6wks to less than 7yo 07/29/2012 Hepatitis A Adult (Havrix; Vaqta) 19yo and older 08/10/2015 Hepatitis B (Jiqzwis-Z-Zgmnt, Recombivax HB-Adult) 19yo and older 08/15/2016, 09/12/2016, [...] older 01/19/2019, 06/16/2019 PHYSICAL EXAM: Visit Vitals BP 137/83 (BP Location: Left arm, Patient Position: Sitting, BP Cuff Size: Large adult) Pulse 62 Wt 91.2 kg (201 lb) SpO2 100% BMI 28.03 kg/m?? Smoking Status Never BSA 2.11 m?? Physical Exam Constitutional: Appearance: Normal appearance. HENT: Head: Normocephalic and atraumatic. Nose: No congestion. Eyes: Pupils: Pupils are equal, round, and reactive to light. Cardiovascular: Rate and Rhythm: Normal rate and regular rhythm. Heart sounds: No murmur heard. Pulmonary: Effort: No respiratory distress. Breath sounds: No stridor. No wheezing, rhonchi or rales. Comments: Diminished BS Abdominal: General: Bowel sounds are normal. There is no distension. Palpations: Abdomen is soft. Tenderness: There is no abdominal tenderness. Musculoskeletal: Right lower leg: No edema. Left lower leg: No edema. Neurological: Mental Status: He is alert. Diagnostic: CURRENTS ICD-10 PULMONARY DIAGNOSIS 1. Moderate persistent asthma, unspecified whether complicated 2. Lung nodules 3. Elevated diaphragm ASSESSMENT/PLAN: 1. Moderate persistent asthma vs. Chronic bronchitis -Pathophysiology of asthma was discussed. Treatment options of the various inhalers, along with techniques of use, and side effects were discussed. Maintenance of care of obstructive lung disease health such as various vaccinations, smoking cessation & avoidance of chemicals/fumes/inhalants were discussed. All questions were answered. -Change Qvar to Symbicort 160/4.5, 2 puff twice a day. -Continue with albuterol MDI 2 ouffs every 6 hrs as needed. 2. 2. Elevated right diaphragm. -Observe. 3. Dyspnea due to asthma/chronic bronchitis, and restrictive lung disease (elevated right diaphragma & various surgery). -Continue to observe, consider repeat PFT next visit. -CXR prior to next visit. 4. RLL 3 mm nodule, stable with a non-smoker no family history of lung cancer. -Based on Fleischner criteria no further indication for serial CT of the chest. -Follow up with Gregg Todd MD for the other co-morbilities. RETURN TO THE NEXT VISIT: Based on physical exam, symptomatology, tests requested and baseline pulmonary evaluation/disease, I instructed the patient to come back to see me in 6 ,months for reevaluation after the test has been done or earlier if the patient needed. Thanks Gregg Todd MD for allowing me to have the opportunity to assist in the care of this patient. This chart was generated by the [employer] EMR system and [employer] speech recognition software and may contain inherent [...] directly with the author for clarification. @ELECSIG@ [1] No Known Allergies [2] No outpatient medications have been marked as taking for the 05/31/25 encounter (Office Visit) withFelicia Sparrow MD. [3] Past Surgical History: Procedure Laterality Date BACK SURGERY PROCEDURE:BACK SURGERY L4-L5, L5 S1 BLEPHAROPLASTY COLONOSCOPY PROCEDURE:COLONOSCOPY LUMBAR LAMINECTOMY 07/07/2018 PROCEDURE: HISTORICAL LUMB LAMINECTOMY; COMMENT: L2-3 partial [4] Past Surgical History: Procedure Laterality Date BACK SURGERY PROCEDURE:BACK SURGERY L4-L5, L5 S1 BLEPHAROPLASTY COLONOSCOPY PROCEDURE:COLONOSCOPY LUMBAR LAMINECTOMY 07/07/2018 PROCEDURE: HISTORICAL LUMB LAMINECTOMY; COMMENT: L2-3 partial [5] Family History Problem Relation Name Age of Onset Heart failure Mother Heart attack Father Bone cancer Brother documented in this encounter Plan of Treatment Upcoming Encounters Date Type Department Care Team (Late st Contact Info) Description 09/28/2025 8:15 AM EDT Office Visit Internal Medicine - [place] [address] [facility] [address] [place] [phone] Gregg Todd MD [address] [phone] 11/30/2025 11:00 AM EDT Office Visit Pulmonology - [place] [address] [phone] Felicia Sparrow MD [address] [place] [phone] Scheduled Orders Name Type Priority Associated Diagnoses Orde r Schedule XR Chest 2 Views Imaging Routine Dyspnea, unspecified type Expected: 05/31/2025, Expires: 05/31/2026 documented as of this encounter Visit Diagnoses Diagnosis Moderate persistent asthma, unspecified whether complicated- Primary Lung nodules Other diseases of lung, not elsewhere classified Elevated diaphragm Disorders of diaphragm Restrictive lung disease Other diseases of lung, not elsewhere classified Dyspnea, unspecified type documented in this encounter Additional Health Concerns Assessment Noted Time PHQ-9 Depression Total Score: 10 025 9:46 PM EDT documented as of this encounter Care Teams Trauma Coordinator Relationship Specialty Start Date End Date Gregg Todd MD [address] [address] PCP - General Internal Medicine 04/17/21 documented as of this encounter
--- OUTSIDE RECORDS SUMMARY | 2025-05-31 14:35 | XMS_ITS | Encounter Summary ---
Author Organization [facility] Address [address] [place] [address] Care Team Providers Care Statistical Typist Name Role Phone Gregg Todd MD Primary Care Provider Encounter Details Date Type Department Care Team (Late st Contact Info) Description 05/31/2025 2:35 PM EST Lab Draw Station - [address] [facility] [address] [place] [address] Human immunodeficiency virus (HIV) disease (CMS/HCC V24, CMS/HCC V28) (Primary Dx); Benign prostate hyperplasia Social History Tobacco Use Types Packs/Day Years [...] care for your loved ones. For example, school child care attendant or elderly care for an older adult? [...] AM EDT Office Visit Internal Medicine - [address] [phone] Gregg Todd MD [address] [place] [phone] 11/30/2025 11:00 AM EDT Office Visit Pulmonology - [address] [phone] Felicia Sparrow MD [address] [place] [phone] Pending Results Name Type Priority Associated Diagnoses Date /Time Lymphocyte T-cell panel Lab Routine Human immunodeficiency virus (HIV) disease ([facility] V24, [facility] V28) 05/31/2025 2:43 PM EST Scheduled Orders Name Type Priority Associated Diagnoses Orde r Schedule Lymphocyte T-cell panel Lab Routine Human immunodeficiency virus (HIV) disease ([facility] V24, [facility] V28) 1 Occurrences starting 05/31/2025 until 05/31/2026 documented as of this encounter Procedures Procedure Name Priority Date/Time Associated Diagnosis Comments PSA TOTAL, FREE AND COMPLEXED, DIAGNOSTIC Routine 05/31/2025 2:43 PM EST Human immunodeficiency virus (HIV) disease (CMS/HCC V24, CMS/HCC V28) Benign prostate hyperplasia TREPONEMA PALLIDUM ANTIBODY WITH REFLEX TO RPR AND PARTICLE AGGLUTINATION Routine 05/31/2025 2:43 PM EST Human immunodeficiency virus (HIV) disease (CMS/HCC V24, CMS/HCC V28) CBC WITH AUTO DIFFERENTIAL Routine 05/31/2025 2:43 PM EST Human immunodeficiency virus (HIV) disease (CMS/HCC V24, CMS/HCC V28) HIV 1 MOLECULAR STUDY QUANTITATIVE Routine 05/31/2025 2:43 PM EST Human immunodeficiency virus (HIV) disease (CMS/HCC V24, CMS/HCC V28) CREATININE, SERUM Routine 05/31/2025 2:4 3 PM EST Human immunodeficiency virus (HIV) disease (CMS/HCC V24, CMS/HCC V28) CBC AND DIFFERENTIAL Routine 05/31/2025 2:43 PM EST Human immunodeficiency virus (HIV) disease (CMS/HCC V24, CMS/HCC V28) ALANINE AMINOTRANSFERASE Routine 05/31/2025 2:43 PM EST Human immunodeficiency virus (HIV) disease (CMS/HCC V24, CMS/HCC V28) ASPARTATE AMINOTRANSFERASE Routine 05/31/2025 2:43 PM EST Human immunodeficiency virus (HIV) disease (CMS/HCC V24, CMS/HCC V28) documented in this encounter Results * (ABNORMAL) CBC auto differential (05/31/2025 2:43 PM EST) WBC 5.2 4.8 - 10.8 K/mcL LAB HEMETOLOGY METHOD 05/31/2025 6:20 PM EST [facility] RBC 4.80 4.50 - 5.50 M/mcL LAB HEMETOLOGY METHOD 05/31/2025 6:20 PM EST [facility] Hemoglobin 14.1 13.5 - 17.5 g/dL LAB HEMETOLOGY METHOD 05/31/2025 6:20 PM [facility] Hematocrit 43.2 42.0 - 54.0 % LAB HEMETOLOGY METHOD 05/31/2025 6:20 PM [facility] MCV 90.4 79.0 - 98.0 FL LAB HEMETOLOGY METHOD 05/31/2025 6:20 PM [facility] MCH 29.5 27.0 - 32.0 pcg LAB HEMETOLOGY METHOD 05/31/2025 6:20 PM [facility] MCHC 32.6 32.0 - 37.0 g/dL LAB HEMETOLOGY METHOD 05/31/2025 6:20 PM [facility] RDW 13.3 11.0 - 15.0 % LAB HEMETOLOGY METHOD 05/31/2025 6:20 PM [facility] Platelets 224 130 - 400 K/mcL LAB HEMETOLOGY METHOD 05/31/2025 6:20 PM [facility] MPV 11.3(H) 7.0 - 11.0 FL LAB HEMETOLOGY METHOD 05/31/2025 6:20 PM [facility] NRBC 0.0 <1.0 % LAB HEMETOLOGY METHOD 05/31/2025 6:20 PM [facility] NRBC Absolute 0.00 <0.10 K/mcL LAB HEMETOLOGY METHOD 05/31/2025 6:20 PM [facility] Neutrophils Relative 57.4 % LAB HEMETOLOGY METHOD 05/31/2025 6:20 PM [facility] Lymphocytes Relative 28.5 % LAB HEMETOLOGY METHOD 05/31/2025 6:20 PM [facility] Monocytes Relative 10.2 % LAB HEMETOLOGY METHOD 05/31/2025 6:20 PM EST [facility] Eosinophils Relative 2.7 % LAB HEMETOLOGY METHOD 05/31/2025 6:20 PM [facility] Basophils Relative 0.6 % LAB HEMETOLOGY METHOD 05/31/2025 6:20 PM [facility] Immature Granulocytes Relative 0.6 % LAB HEMETOLOGY METHOD 05/31/2025 6:20 PM EST [facility] Neutrophils Absolute 2.98 1.50 - 7.00 K/mcL LAB HEMETOLOGY METHOD 05/31/2025 6:20 PM EST [facility] Lymphocytes Absolute 1.48 1.00 - 5.00 K/mcL LAB HEMETOLOGY METHOD 05/31/2025 6:20 PM [facility] Monocytes Absolute 0.53 0.20 - 1.00 K/mcL LAB HEMETOLOGY METHOD 05/31/2025 6:20 PM EST [facility] Eosinophils Absolute 0.14 0.00 - 0.50 K/mcL LAB HEMETOLOGY METHOD 05/31/2025 6:20 PM EST [facility] Basophils Absolute 0.03 0.00 - 0.20 K/mcL LAB HEMETOLOGY METHOD 05/31/2025 6:20 PM [facility] Immature Granulocytes Absolute 0.03 0.00 - 0.03 K/mcL LAB HEMETOLOGY METHOD 05/31/2025 6:20 PM EST [facility] Blood Venous blood specimen / Unknown Venipuncture / Unknown 05/31/2025 2:43 PM EST 05/31/2025 2:43 PM EST us Юлия Angel MD LAB BLOOD ORDERABLES Una tovar Result [facility] [address] [place] [address], * HIV 1 molecular study quantitative (05/31/2025 2:43 PM EST) Pathologist [facility] HIV-1 RNA Interpretation Not Detected Not Detected LAB MOLECULAR DIAGNOSTICS METHOD 06/01/2025 12:22 PM EST [facility] Comment:HIV RNA not detected , unable to report quantitative results. Blood Venous blood specimen / Unknown Venipuncture / Unknown 05/31/2025 2:43 PM EST 05/31/2025 2:43 PM EST us Юлия Angel MD LAB BLOOD ORDERABLES Una l Result [facility] [address] [place] [address], [place] [phone] * (ABNORMAL) PSA total, free and complexed (05/31/2025 2:43 PM EST) Pathologist [facility] PSA 1.19 0.00 - 4.00 ng/mL 05/31/2025 6:37 PM EST [facility] PSA, Complexed 1.09 0.00 - 3.00 ng/mL 05/31/2025 6:37 PM EST [facility] PSA, Free 0.1 ng/mL 05/31/2025 6:37 PM EST [facility] PSA, Free Pct 8.4(L) >25.0 % 05/31/2025 6:37 PM EST [facility] Comment:Free PSA is a calcul ated value. The diagnostic usefulness of % free PSA has not been established in patients with Total PSA below 2.6 or above 10 ng/mL. Blood Venous blood specimen / Unknown Venipuncture / Unknown 05/31/2025 2:43 PM EST 05/31/2025 2:43 PM EST Narrative [facility] - 05/31/2025 6:37 PM EST The [employer] IM Chemiluminescent Immunoassay is used. Results obtained with different assay methods or kits cannot be used interchangeably. Results cannot be interpreted as absolute evidence of the presence or absence of malignant disease. us Юлия Angel MD LAB BLOOD ORDERABLES Una l Result Performing Organization Address City/[facility]/ZIP Co de Phone Number [facility] [address] [place] [address], [place] [phone] * Alanine aminotransferase (05/31/2025 2:43 PM EST) ALT (SGPT) 20 10 - 60 unit/L 05/31/2025 6:38 PM EST [facility] Blood Venous blood specimen / Unknown Venipuncture / Unknown 05/31/2025 2:43 PM EST 05/31/2025 2:43 PM EST us Юлия Angel MD LAB BLOOD ORDERABLES Una l Result Performing Organization Address [facility]/ZIP Co de Phone Number [facility] [address] [place] [address], [place] [phone] * Aspartate aminotransferase (05/31/2025 2:43 PM EST) AST (SGOT) 17 10 - 42 unit/L 05/31/2025 6:39 PM EST [facility] Blood Venous blood specimen / Unknown Venipuncture / Unknown 05/31/2025 2:43 PM EST 05/31/2025 2:43 PM EST us Юлия Angel MD LAB BLOOD ORDERABLES Una l Result Performing Organization Address City/[facility]/ZIP Co de Phone Number [facility] [address] [place] [address], [place] [phone] * Creatinine (05/31/2025 2:43 PM EST) Creatinine 1.14 0.70 - 1.30 mg/dL 05/31/2025 6:38 PM EST [facility] eGFR 73 >=60 mL/min/1. 73m2 05/31/2025 6:38 PM EST [facility] Comment:Calculation based on the Chronic Kidney Disease Epidemiology Collaboration (CKD-EPI) equation refit without adjustment for race. Blood Venous blood specimen / Unknown Venipuncture / Unknown 05/31/2025 2:43 PM EST 05/31/2025 2:43 PM EST Юлия Angel MD LAB BLOOD ORDERABLES Una l Result Performing Organization Address [facility]/ZIP Co de Phone Number [facility] [address] [place] [address], [place] [phone] * Treponema pallidum antibody with reflex to RPR and particle agglutination (05/31/2025 2:43 PM EST) T. Pallidum Antibodies Negative Negative 05/31/2025 6:54 PM EST [facility] Blood Venous blood specimen / Unknown Venipuncture / Unknown 05/31/2025 2:43 PM EST 05/31/2025 2:43 PM EST Юлия Angel MD LAB BLOOD ORDERABLES Una l Result Performing Organization Address City/[facility]/ZIP Co de Phone Number [facility] [address] [place] [address], [place] [phone] documented in this encounter Visit Diagnoses Diagnosis Human immunodeficiency virus (HIV) disease ([facility] V24, [facility] V28)- Primary Human immunodeficiency virus [HIV] disease Benign prostate hyperplasia Unspecified hyperplasia of prostate without urinary obstruction and other lower urinary tract symptoms (LUTS) documented in this encounter Additional Health Concerns Assessment Noted Time PHQ-9 Depression Total Score: 10 025 9:46 PM EDT documented as of this encounter Care Teams Statistical Typist Relationship Specialty Start Date End Date Gregg Todd MD [address] [place] [phone] PCP - General Internal Medicine 04/17/21 documented as of this encounter
--- NOTE | 2025-06-05 09:24 | MHC.OFFVIS ---
Vital Signs 06/05/25 09:25 Height 5 ft 11 in Weight 204 lb BMI 28.4 BP 125/72 Blood Pressure Location Lt brachial Position Sitting Respiration 16 Pulse 71 Pulse Source Pulse Oximeter Pulse Oximetry (%) 97 Oxygen Delivery Method Room Air Intake Visit Reasons: Pill Count Intake Note: Pt states he last took vicodin 06/05/25 @ 7am [employer] Required: No Allergies No Known Allergies Allergy (Verified 06/05/25 09:27) Medication List - Last Reconciled 06/05/25 by Loida Louie LPN albuterol sulfate 90 mcg/actuation 2 puffs inhalation Q6H PRN beclomethasone dipropionate 80 mcg/actuation (Qvar RediHaler) 2 inhalations inhalation BID tyvtldwza-kriakstk-rgwirib ala 50-200-25 mg (Biktarvy) 1 tab PO DAILY doxycycline hyclate 100 mg PO DAILY PRN fluticasone propionate 50 mcg/actuation 1 spray intranasal BID gabapentin 600 mg PO QID hydrocodone-acetaminophen 5-325 mg 1 tab PO Q4-6H PRN hydroxyzine HCl 25 mg PO DAILY lidocaine 5% 1 patch topical DAILY 30 days meclizine 25 mg PO TID PRN mupirocin 2% 1 appl topical DAILY PRN naloxone 4 mg/actuation (Narcan) 4 mg intranasal Q2M PRN omeprazole 40 mg PO DAILY simvastatin 20 mg PO BEDTIME tamsulosin 0.4 mg PO DAILY tizanidine 8 mg PO BEDTIME PRN HPI HPI Pill Count: Details: History of Present Illness The patient is a 60 year old male presenting for chronic pain management, medication refill, and evaluation for bilateral sacroiliac joint pain. The patient reports a history of an incisional hernia at a previous surgical site. He has seen a general surgeon, who noted that this type of hernia is difficult to repair and has scheduled a CT scan on the of this month for further evaluation. He also reports that his feet flare up as the day progresses, which will also be investigated with the upcoming CT scan. The patient has a history of bilateral sacroiliac joint pain that radiates to his buttocks. He has previously received sacroiliac joint injections, which provided more than 75% pain relief for over six weeks. Pain Description - Location: The patient reports pain in both sacroiliac joints, which radiates down to his buttocks. - Laterality: The left side is currently more bothersome than the right. - Relieving Factors: He has previously experienced over 75% relief for more than six weeks from sacroiliac joint injections. Physical Exam - Constitutional: Pill count was performed and noted to be consistent. Results Pain Management: - Analgesia: The patient is at the end of his monthly prescription, which was refilled today. - He reports recurrent bilateral SI joint pain, for which he has previously had more than 75% relief with injections. - Aberrant Drug-Related Behaviors: The patient's pill count was consistent. PFSH Medical History Pulmonary nodules HIV (human immunodeficiency virus infection) Arthritis Hiatal hernia BARDALES (dyspnea on exertion) Asthma History of MRSA infection History of blood transfusion GERD (gastroesophageal reflux disease) BPH (benign prostatic hyperplasia) [place] (hard of hearing) Numbness Dizziness Seasonal allergies HLD (hyperlipidemia) Chronic nasal congestion Surgical History Hx of basal cell carcinoma excision Hx of colonoscopy (11/2024) Hx of blepharoplasty (2018) Hx of spinal surgery (2021) Social History Household Members: Spouse Housing: House Are you a primary direct care professional to a significant other at home: No Do you presently have visiting nurse or other home services: No 75 years or older and lives alone: No Comment: vivid dreams and falls out of bed Patient Tobacco Use Status: Never used Tobacco service: No Physical Exam Vital Signs: Last Vital Signs Pulse 71 06/05/25 09:25 Resp 16 06/05/25 09:25 BP 125/72 06/05/25 09:25 Pulse Ox 97 06/05/25 09:25 Oxygen Delivery Method Room Air 06/05/25 09:25 BMI result Body Mass Index 28.4 Assessment & Plan Assessment & Plan (1) nursing home (current) use of opiate analgesic: Code(s): Z79.891 - nursing home (current) use of opiate analgesic Category: Medical (2) Sacroiliac joint dysfunction: Code(s): M53.3 - Sacrococcygeal disorders, not elsewhere classified Category: Medical Plan Plan Patient was informed and verbally consented to the use of an ambient scribe for clinic note documentation during this visit. 1. Sacroiliac Joint Pain - The patient reports recurrent bilateral sacroiliac joint pain, which is worse on the left. - Given his prior history of achieving greater than 75% pain relief for over six weeks, a left therapeutic sacroiliac joint injection is planned. - A right-sided injection will be performed two weeks afterwards. 2. Chronic Pain Management - The patient's medications were refilled today as he was at the end of his monthly prescription. - Pill count was consistent. 3. Incisional Hernia And Pedal Edema - The patient will follow up with his general surgeon for evaluation of an incisional hernia and pedal edema. - He is scheduled for a CT scan on the of this month for further assessment of these conditions. Discussion Notes I discussed with the patient his recurrent sacroiliac joint pain, which is currently worse on the left side. Given his previous positive response to injections, with over 75% relief for more than six weeks, we will plan a left sacroiliac joint injection. I informed him that we will then perform a right-sided injection two weeks later. I also refilled his monthly prescription today. The patient will continue to follow up with his surgeon regarding his hernia and foot swelling, and he has a CT scan scheduled for further evaluation. Patient Instructions - Your pain medications have been refilled today. - We will schedule an injection for your left sacroiliac joint to help with your pain. - An injection for your right side will be scheduled two weeks after that. - Please proceed with the scheduled CT scan on the of this month. - Continue to follow up with your surgeon regarding your hernia and foot swelling. Medications: Refilled hydrocodone-acetaminophen 5-325 mg Partial Fill upon patient request. 1 tab PO Q4-6H PRN 180 tabs 0RF pain Coding Level of Care Code Est Pt Level 4 (81514) Diagnoses nursing home (current) use of opiate analgesic Z79.891 Sacroiliac joint dysfunction M53.3
[2025-06-05 09:25] VITALS: BP 125/72; PULSE 71; RESP 16; O2SAT 97; BMI 28.4
--- OUTSIDE RECORDS SUMMARY | 2025-06-05 10:23 | XMS_ITS | Continuity of Care Document ---
Author Organization RANDALL CARRERA MD [facility], Main Office Address [address] [place] [address] Assessment No assessment recorded. Plan of Treatment Reminders Order Date Submit Date Provider Last Modified By Organization Details Last Modified Time Details Appointments B20 FOLLOW UP 2025 02:00P Bret Angel MD Not available Not available Not available Lab CBC w/ diff 2024 025 [facility], [address] [place] [address], [id number], 06/02/2025 08:54:25 HIV-1 RNA, quantitat patricia, PCR, serum or plasma 2024 025 [facility], [address] [place] [address], [id number], 06/02/2025 08:54:26 RPR (rapid plasma reagin), serum 2024 025 [facility], [address] [place] [address], [id number], 06/02/2025 08:54:26 T-cell regulator y subsets panel, blood 2024 025 [facility], [address] [place] [address], [id number], 06/02/2025 08:54:26 creatinin e w/ estimated GFR (eGFR), serum or plasma 2024 025 [facility], [address] [place] [address], [id number], 06/02/2025 08:54:26 AST/SGOT (aspartat e aminotran sferase), serum or plasma [facility]24 [facility], [address] [place] [address], [facility] [address], [place], [address], 06/02/2025 08:54:26 ALT (alanine aminotran sferase), serum or plasma 2024 025 [facility], [address] [place] [address], [facility] [address], [place], [address], 06/02/2025 08:54:26 PSA, total + free, serum or plasma 2024 [facility], [address] [place] [address], [facility] [address], [place], [address], 06/02/2025 08:54:26 Referral None recorded. Procedures None recorded. Surgeries None recorded. Imaging None recorded. Medication Orders Voltaren Arthritis Pain 1 % topical gel 2024 [facility] #[id number], [address] [place], [address], 05/24/2025 16:38:13 mupirocin 2 % topical ointment 2024 [facility] #[id number], [address] [place], [address], 05/24/2025 16:38:13 doxycycli ne monohydra te 100 mg capsule 2024 [facility] #[id number], [address] [place], [address], 05/24/2025 16:40:24 fluconazo le 100 mg tablet 2024 [facility] #[id number], [address] [place], [address], 05/24/2025 16:38:12 hydroxyzi ne HCl 50 mg tablet 2024 025 [facility] #[id number], [address] [place], [address], 05/24/2025 16:38:12 Biktarvy 50 mg-200 mg-25 mg tablet 2024 025 [facility] #[id number], [address] [place], [address], 05/24/2025 16:38:13 Patient TargetsNo targets recorded. Patient InstructionsNo instructions recorded. Reason for Referral None Reported. Problems Name Problem SNOMED Code Status Onset Date Resolution Date Notes Provider Name and Address Organization Details Recorded Time Dizziness and giddiness 759729971 Active 2003 Dizziness and giddiness; snomeddesc ription: Vertigo; Report Immunity to Registry: Yes; Notes: vertigo; Not Available [facility] 4 06:58:27 Vertigo 533140497 Active 2003 Vertigo; snomeddesc ription: Vertigo; Report Immunity to Registry: Yes; Notes: vertigo; Not Available [facility] 4 06:58:30 Primary malignant neoplasm of skin 26787952 Active 2004 Unspecifie d malignant neoplasm of skin, unspecifie d; snomeddesc ription: Malignant neoplasm of skin; Report Immunity to Registry: Yes; Notes: basal cell forearm; removed surgical; not active; Remote; Not Available [facility] 4 06:58:26 Insomnia 774569067 Active 2004 Insomnia; Report Immunity to Registry: Yes; Not Available [facility] 4 06:58:27 Depressiv e disorder 02242207 Active 2004 Other specified depressive episodes; snomeddesc ription: Symptoms of depression ; Report Immunity to Registry: Yes; Notes: derpession /anxiety/i nsomnia hx; Not Available [facility] 4 06:58:29 Symptoms of depressio n 469620065 Active 2004 Symptoms of depression ; snomeddesc ription: Symptoms of depression ; Report Immunity to Registry: Yes; Notes: derpession /anxiety/i nsomnia hx; Not Available [facility] 4 06:58:29 Anxiety 61777595 Active 2004 Anxiety; snomeddesc ription: Anxiety; Report Immunity to Registry: Yes; Notes: panic disorder (chest pain/palpi tations)/d epression; Not Available [facility] 4 06:58:31 Malignant neoplasm of skin 120817555 Active 2004 Malignant neoplasm of skin; snomeddesc ription: Malignant neoplasm of skin; Report Immunity to Registry: Yes; Notes: basal cell forearm; removed surgical; not active; Remote; Not Available [facility] 4 06:58:31 Anxiety disorder 224062879 Active 2004 Anxiety disorder, unspecifie d; snomeddesc ription: Anxiety; Report Immunity to Registry: Yes; Notes: panic disorder (chest pain/palpi tations)/d epression; Not Available [facility] 4 06:58:32 Vitamin D deficienc y 34135499 Active 2009 Vitamin D deficiency ; Report Immunity to Registry: Yes; Not Available [facility] 4 06:58:29 Hemorrhoi ds 42557401 Active 2009 Hemorrhoid s; snomeddesc ription: Hemorrhoid s; Report Immunity to Registry: Yes; Notes: internal and external; Unspecifi ed hemorrhoid s; snomeddesc ription: Hemorrhoid s; Report Immunity to Registry: Yes; Notes: internal and external; Not Available [facility] 4 06:58:32 Nasal congestio n 34329513 Active 2009 Nasal congestion ; snomeddesc ription: Nasal congestion ; Report Immunity to Registry: Yes; Notes: sinusitis/ allergies; Nasal congestion ; snomeddesc ription: Nasal congestion ; Report Immunity to Registry: Yes; Notes: sinusitis/ allergies; Not Available [facility] 4 06:58:33 Gout 01027996 Active 2009 Gout; Report Immunity to Registry: Yes; Not Available [facility] 4 06:58:33 Ulcer of esophagus 22560743 Active 2010 Ulcer of esophagus; snomeddesc ription: Ulcer of esophagus; Report Immunity to Registry: Yes; Notes: EGD/biopsy 2014; ulcerative esophagiti s ; Ulcer of esophagus without bleeding; snomeddesc ription: Ulcer of esophagus; Report Immunity to Registry: Yes; Notes: EGD/biopsy 2014; ulcerative esophagiti s ; Not Available [facility] 4 06:58:27 Essential hypertens ion 73087853 Active 2010 Essential (primary) hypertensi on; snomeddesc ription: Hypertensi ve disorder; Report Immunity to Registry: Yes; Not Available [facility] 4 06:58:28 Hypertens patricia disorder 49852932 Active 2010 Hypertensi ve disorder; snomeddesc ription: Hypertensi ve disorder; Report Immunity to Registry: Yes; Not Available [facility] 4 06:58:28 Benign prostatic hyperplas ia 395445138 Active 2011 Benign prostatic hyperplasi a; snomeddesc ription: Benign prostatic hyperplasi a; Report Immunity to Registry: Yes; Benign prostatic hyperplasi a without lower urinary tract symptoms; snomeddesc ription: Benign prostatic hyperplasi a; Report Immunity to Registry: Yes; Not Available [facility] 4 06:58:28 Polyneuro randal 73286359 Active 2011 Polyneurop athy, unspecifie d; snomeddesc ription: Neuropathy ; Report Immunity to Registry: Yes; Not Available [facility] 4 06:58:29 Hyperlipi demia 62655548 Active 2011 Hyperlipid emia; snomeddesc ription: Hyperlipid emia; Report Immunity to Registry: Yes; Hyperlipi demia, unspecifie d; snomeddesc ription: Hyperlipid emia; Report Immunity to Registry: Yes; Not Available [facility] 4 06:58:32 Neuropath y 610078209 Active 2011 Neuropathy ; snomeddesc ription: Neuropathy ; Report Immunity to Registry: Yes; Not Available [facility] 4 06:58:33 Spasm 76728017 Active 2012 Muscle spasm; Report Immunity to Registry: Yes; Notes: upper/lowe r back/chron ic pain; Not Available [facility] 4 06:58:27 Chronic back pain 392948773 Active 2012 Chronic back pain; snomeddesc ription: Chronic back pain; Report Immunity to Registry: Yes; Notes: chronic back pain/gener alized pain back surgery 09/2018 dx l2-3 stenosis l2-3 decompessi on partial laminectom y medial fecetectom y foraminoto jose bilateral; Not Available [facility] 4 06:58:30 Pain in thoracic spine 051002964 Active 2012 Dorsalgia, unspecifie d; snomeddesc ription: Chronic back pain; Report Immunity to Registry: Yes; Notes: chronic back pain/gener alized pain back surgery 09/2018 dx l2-3 stenosis l2-3 decompessi on partial laminectom y medial fecetectom y foraminoto jose bilateral; Not Available [facility] 4 06:58:31 Furuncle 510837703 Active 2014 Furuncle; snomeddesc ription: Furuncle; Report Immunity to Registry: Yes; Notes: skin/forea christine/follic ulitis; Furuncle, unspecifie d; snomeddesc ription: Furuncle; Report Immunity to Registry: Yes; Notes: skin/forea christine/follic ulitis; Not Available [facility] 4 06:58:30 Herpesvir us infection 95090067 Active 2015 Herpesvira l infection, unspecifie d; snomeddesc ription: Herpes simplex; Report Immunity to Registry: Yes; Notes: HSV 1 pos w oral HSV sores; HSV 2 neg 2015; Not Available [facility] 4 06:58:26 Herpes simplex 07487320 Active 2015 Herpes simplex; snomeddesc ription: Herpes simplex; Report Immunity to Registry: Yes; Notes: HSV 1 pos w oral HSV sores; HSV 2 neg 2015; Not Available [facility] 4 06:58:27 Human immunodef iciency virus infection 24228662 Active 2015 Human immunodefi ciency virus infection; snomeddesc ription: Human immunodefi ciency virus infection; Report Immunity to Registry: Yes; Notes: [id number] neg ; Human immunodefi ciency virus [HIV] disease; snomeddesc ription: Human immunodefi ciency virus infection; Report Immunity to Registry: Yes; Notes: [id number] neg ; Not Available [facility] 4 06:58:32 Hemangiom a of intra-abd ominal structure 253609351 Active 2015 Hemangioma of intra-abdo maddi structures ; snomeddesc ription: Hemangioma of liver; Report Immunity to Registry: Yes; Not Available [facility] 4 06:58:28 Hemangiom a of liver 44225774 Active 2015 Hemangioma of liver; snomeddesc ription: Hemangioma of liver; Report Immunity to Registry: Yes; Not Available [facility] 4 06:58:31 Blood chemistry outside reference range 369729179 Active 2016 Other specified abnormal findings of blood chemistry; snomeddesc ription: Decreased testostero ne level; Report Immunity to Registry: Yes; Not Available [facility] 4 06:58:29 Testoster one level below reference range 798425240 Active 2016 Decreased testostero ne level; snomeddesc ription: Decreased testostero ne level; Report Immunity to Registry: Yes; Not Available [facility] 4 06:58:33 Tremor 73228734 Active 2017 Other specified forms of tremor; snomeddesc ription: Resting tremor; Report Immunity to Registry: Yes; Not Available [facility] 4 06:58:31 Resting tremor 42522885 Active 2017 Resting tremor; snomeddesc ription: Resting tremor; Report Immunity to Registry: Yes; Not Available [facility] 4 06:58:33 Kidney stone 62046912 Active 2018 Kidney stone; snomeddesc ription: Kidney stone; Report Immunity to Registry: Yes; Calculus of kidney; snomeddesc ription: Kidney stone; Report Immunity to Registry: Yes; Not Available [facility] 4 06:58:28 Gastroeso phageal reflux disease 662520009 Active 2018 Gastroesop hageal reflux disease; snomeddesc ription: Gastroesop hageal reflux disease; Report Immunity to Registry: Yes; Not Available [facility] 4 06:58:29 Gastroeso phageal reflux disease without esophagit is 488914778 Active 2018 Gastro-eso phageal reflux disease without esophagiti s; snomeddesc ription: Gastroesop hageal reflux disease; Report Immunity to Registry: Yes; Not Available [facility] 4 06:58:30 Diaphragm atic hernia 03465977 Active 2019 Diaphragma tic hernia without obstructio n or gangrene; snomeddesc ription: Hiatal hernia; Report Immunity to Registry: Yes; Notes: per PCP note; Not Available [facility] 4 06:58:27 Hiatal hernia 29389066 Active 2019 Hiatal hernia; snomeddesc ription: Hiatal hernia; Report Immunity to Registry: Yes; Notes: per PCP note; Not Available [facility] 4 06:58:32 Aphthous ulcer of mouth 453766760 Active 2019 Aphthous ulcer of mouth; snomeddesc ription: Aphthous ulcer of mouth; Report Immunity to Registry: Yes; Not Available [facility] 4 06:58:27 Recurrent aphthous stomatiti s 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 2019 Recurrent oral aphthae; snomeddesc ription: Aphthous ulcer of mouth; Report Immunity to Registry: Yes; Not Available [facility] 4 06:58:28 Erectile dysfuncti on 066408315 Active 2019 Male erectile disorder; Report Immunity to Registry: Yes; Notes: low testostero ne; Not Available [facility] 4 06:58:30 Chronic pain 93839870 Active 2020 Chronic pain; snomeddesc ription: Chronic pain; Report Immunity to Registry: Yes; Notes: Back/shoul erica.all body; Other chronic pain; snomeddesc ription: Chronic pain; Report Immunity to Registry: Yes; Notes: Back/shoul erica.all body; Not Available [facility] 4 06:58:26 Lipodystr ophy 43319168 Active 2022 [facility]iddharth Angel [facility] [address] [facility] [place], [address] , RANDALL ANGEL MD [facility] 3 02:42:40 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 2024 active Not Available Not Available Not Avai lable methocarb alvarez 500 mg tablet 500 MG [...] n 600 mg tablet TAKE 1 TABLET (600 MG) BY MOUTH FOUR TIMES A DAY FOR [...] Available hydroxyzi ne HCl 50 mg tablet Take 1 tablet twice a day by oral route as needed for 30 days, for anxiety. 2024 active Not Available Not Available Not Avai lable valacyclo vir 500 mg tablet TAB 500MG; [...] completed VACCINE_ IND: no; SU_FULL_ NAME: Siddharth Martcyrus tovar; Not Available Not Available Not Available [...] bid; VACCINE_ IND: no; SU_FULL_ NAME: Siddharth Kothari guy; Not Available Not Available Not Available meclizine 25 mg tablet TAKE 1 TABLET BY MOUTH 3 TIMES A DAY IF NEEDED FOR DIZZINES S. active Not Available Not Available No t Available doxycycli ne monohydra te 100 mg capsule Take 1 capsule every day by oral route, for MRSA. 2024 active Not Available Not Available Not Avai lable hydrocodo ne 7.5 mg-acetam inophen 325 mg [...] Available lidocaine 5 % topical patch APPLY ONE PATCH TOPICALL Y DAILY FOR 30 DAYS active Not Available Not [...] Available mupirocin 2 % topical ointment APPLY IN AFFECTED TWICE A DAY NEEDED 2024 active Not Available Not Available Not Avai lable zolpidem 5 mg tablet TARTRATE 5MG TAB; [...] 30; VACCINE_ IND: no; SU_FULL_ NAME: Siddharth Martcyrus tovar; Not Available Not Available Not Available [...] & DRINK 8OZ AT OWN PACE UNTIL 06/16 GONE & 2ND 1/2 5 HOURS BEFORE PROCEDUR E. active Not Available Not Available No t Available Prevnar 13 (PF) 0.5 mL intramusc ular syringe - Quantity : ; 0 refill(s ) 12/03 completed VACCINE_ IND: yes; VACCINE_ NAME: Pneumoco ccal conjugat e PCV 13; SU_FULL_ NAME: Siddharth Kothari l; VIS_DATE : 20:05:33 .0; Not Available Not [...] Not Available Not Available Not Available Afluria [id number] 45 mcg (15 mcg x 3)/0.5 mL intramusc ular suspensio n trivalen t Quantity : ; 0 refill(s ) 05/26 completed VACCINE_ IND: yes; VACCINE_ NAME: Influenz a, seasonal , injectab le; SU_FULL_ NAME: Siddharth Kothari l; Not Available Not Available Not Available Afluria 45 mcg (15 mcg x 3)/0.5 mL intramusc ular suspensio n trivalen t Quantity : ; 0 refill(s ) 08/07 completed VACCINE_ IND: yes; VACCINE_ NAME: Influenz a, seasonal , injectab le; SU_FULL_ NAME: Siddharth Kothari l; Not Available Not Available Not Available [...] injectab le, quadriva lent; SU_FULL_ NAME: Siddharth Kothari l; VIS_DATE : 14:48:29 .0; Not Available Not Available Not Available Egrifta SV 2 mg subcutane ous solution 1.4 mg by sub-q route. active Not Available Not Available No t Available Voltaren Arthritis Pain 1 % topical gel APPLY 2 GRAMS TO THE AFFECTED AREA(S) BY TOPICAL ROUTE 4 TIMES PER DAY 2024 active Not Available Not Available Not Avai lable Flublok Quad (PF) 180 mcg (45 mcg [...] Details Last Updated DateTime 5 177.8 cm 62 /min 97.5 [degF] 28.7 kg/m2 53225.4 7 g 99 % 130/71 mm[Hg] Shahla ANGEL MD [facility] 5 14:07:57 Social History Question Answer Notes LastModified by Organizat ion Details LastModified Time Tobacco Smoking Status Never Smoker RANDALL Seaman MD [facility] 02/24/2023 15:11:34 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 Yes Night Blindness [email or web address] Information not available 02/24/2023 Are You Deaf Or Do You Have Serious Difficulty Hearing? No [email or web address] Information not available 02/24/2023 What Type Of Diet Are You Following? REGULAR [email or web address] Information not available 02/24/2023 Which Of Your Hands Is Dominant? Right [email or web address] Information not available 02/24/2023 Do You Use Your Seat Belt Or Car Seat Routinely? Yes [email or web address] Information not available 02/24/2023 Do You Have Difficulty Walking Or Climbing Stairs? Yes Back Pain [email or web address] Information not available 02/24/2023 Do You Have Any Dietary Restrictions? No [email or web address] Information not available 02/24/2023 Sex: Male Functional Status Question Answer Note LastModified by Organizat ion Details LastModified Time Do you have transportation difficulties? No [email or web address] Information not available 02/24/2023 Are you able to walk independently without assistance or assistive devices? YESWOREST [email or web address] Information not available 02/24/2023 Do you have difficulty doing errands alone? No [email or web address] Information not available 02/24/2023 Are you able to care for yourself independently? Yes [email or web address] Information not available 02/24/2023 Do you have difficulty dressing, bathing, grooming, or toileting? No Information not available 02/24/2023 Mental Status Question Answer Note LastModified by Organizat ion Details LastModified Time Do you feel stressed (tense, restless, nervous, or anxious, or unable to sleep at night)? [id number] Information not available 02/24/2023 Do you have difficulty concentrating, remembering or making decisions? No [email or web address] Information no t available 02/24/2023 Family History Nothing Reported Notes:Hypertension, Response Property: Yes; , Stroke, Response Property: Yes; Medical History Condition Response Depression Y Anxiety Disorder Y AIDS/HIV Y Immunizations Vaccine Type Date Status Note Provider Nam e and Address Organization Details Recorded Time COVID-19, mRNA, LNP-S, PF, 50 mcg/0.5 mL 03/24/2023 completed Tiff maya [place] - SIDDHARTH ANGEL MD [facility] 11/04/2023 14:39:33 Past Encounters Encounter ID Performer Location Encounter Start Date Encounter Closed Date Diagnosis/Indication Diagnosis SNOMED-CT Code Diagnosis ICD10 Code Diagnosis IMO Codes Diagnosis Note [id number] Siddharth Angel MD Main Office [address] [place] [address] RANDALL BONDS [id number] 05/24/2025 14:00:15 05/24/2025 15:49:47 Human immunodeficiency virus infection 80280063 B20 on Biktarvy 1 tab po qd.strict compliance reviewed to prevent VF, resistance and transmissi onclinical trial options reviewedla bs ordered; he took order with him- reviewed labs at visit. next labs 1-2 weeks prior to next visitavoid supplement s or keep them 6-8 hrs apart; or take w Biktarvy w foodpt aware of PreP and DOXYPEP availabili ty.U=U reviewed.c ondom use for STI prevention looking for flu vaccine- will orderPSA to be checked- will refer if elevated Anxiety 60159298 F41.9 88406 prescribe Hydroxyzin e 50mg po BID PRN for insomnia/a nxiety has tolerated well in the past. correct use reviewedst ates that the medication is helpful for the anxiety Methicilli n resistant Staphylococcus aureus infection 934627005 A49.02 840132 on qd Doxycyclin e suppressio n tx PRN. to decrease frequency and severity of flareups.m upirocin prescribed PRNsmall excoriatio ns on forearms and scalp Onychomycosis 324507675 B35.1 785925 pt has been treated for nail infection for two years initially for his toesremark s that the infection in toenails has cleared but the nail on left 2nd finger is still demonstrat ing a fungal infection- has been on terbinafin e for 2 yearswill switch to fluconazol e weekly- pt has been made aware that the new medication will be weekly not daily- and can take 3- 6 months to be effectivew ill continue to monitor labspictur e was taken of finger Chronic low back pain 27 6376907 M54.41 G89.29 03015524 pt had back surgery in Jan on L1 to S1 fusionstat es that neck discomfort and shoulder tightnessc an try voltaren gel to see if that will help with stiffnessh as noted burning radiating to right foot from back- may be sciatica- is scheduled for a CT of back on 06/24/2025h as also developed an abdominal wall hernia on left at surgical site- has been present since Novhas followed up with orthopedic surgeon , scheduled for a CT on 06/13/2025 and most likely will be referred to a general surgeon for hernia repair Health Concerns Section Related Observation LastModified by Organization Detai ls LastModified Time None Recorded Concern Status LastModified by Organization Details LastModified Time None Recorded Payers Encounter Date Sequence Insurance Name Policy Number Policy Gunn Covered Member ID Gunn Member ID Guarantor Name 05/24/2025 1 [facility] [employer] (HMO) [facility] Roni Willson [id number] Roni Mckeoncourtney 05/24/2025 2 MEDICAID-[place]: [facility] Roni Willson [id number] Roni Willson Notes Date Note Type Note Provider Name and Address Organization Details Recorded Time 05/24/2025 text/html ROS as noted in the HPI f/u HIVon Biktarvy 1 tab po qd.compliant w Biktarvyhappy w med.med list reviewed.labs reviewed with sylvia ALBERTS sx: no rash. no abd pain. no n/v/d. no chills. no sweats. no fever.Egrifta off for 3-6 months due to pharmacy shortage and he feels that it was not helpful.denies ETOH use.pt is sexually active with one person x 5 yrsdid undergo back surgery on January 2025- lumbar fusionremarks that he has developed an abdominal wall hernia on left in areas of anterior spinal surgeryhas followed up with spine surgeon and is scheduled for a CT of abd on 06/13remarks that since his spine surgery, he is having more issues with burning in feet c/w sciatica and will take neurontin for pain relief- suggest asking provider to increase dosage from 2400 to a higher doseskin stable: some skin excoriations; admits to touching and scratching them; no new folliculitis. on mupirocin prn; on doxycycline for suppression tx. helping- some patches and will order the mupirocin cream and doxycycline.chronic elevated lipase. no etiology found; seen by Dr Mccormack. no ETOH. has had workuppt does have some anxiety and found that the atarax has been helpful in the past- is looking for refill as it is helpful also remarking about nail fungus- had toe fungus 2 yrs ago- was given terbinafine for 2 years which cleared the toes but still has fungus on left second finger- suggest fluconazole weekly and aware that treatment could take 3-6 months.02/2025- CD4- 680, CD4%- 48, HIV RNA- <20 non detected. RPR- neg, CBC- wn VL nondetected; CD4 671; CMP wnk; chronic elevate; egfr=70; HBV s ag neg; TSH nl; lipid elevated on simvastatin.01/2024 HIV VL nondetected; AST/SUSAN wnl; GC/chlamydia neg; HCV neg; treponemal ab neg; eGFR= 67 GV4=7876/2023 722; HIV VL nondetected; 3GFR>70; ALt/AST wnl;08/2023 OS7=075; aslt/ast wnl; eGFR>60; HCV neg; GC negative; no /1/23 HIV VL=43; no HCV. no syphilis; ALT/ASt wbl; eGFR-75; no GC/no chlamydia08/2022 HIV VL nondetcetd; ALT/AST wnl; eGFR>60; Siddharth Angel MD [address] [place] [address], [id number], [place] - SIDDHARTH ANGEL MD [facility] 05/24/2025 16:43:15
--- OUTSIDE RECORDS SUMMARY | 2025-06-05 10:23 | XMS_ITS | Data Portability ---
Author Organization [facility], Main Office Address [address] [place] [address] Assessment No assessment recorded. Plan of Treatment Reminders Order Date Submit Date Provider Last Modified By Organization Details Last Modified Time Details Appointments B20 FOLLOW UP 2025 02:00P Bret Angel MD Not available Not available Not available Lab CBC w/ diff 2024 025 [facility], [address] [place] [address], [id number], 06/02/2025 08:54:25 HIV-1 RNA, quantita tive, PCR, serum or plasma 2024 025 [facility], [address] [place] [address], 12510, 06/02/2025 08:54:26 RPR (rapid plasma reagin), serum 2024 025 [facility], [address] [place] [address], 94096, 06/02/2025 08:54:26 T-cell regulato ry subsets panel, blood 2024 025 [facility], [address] [place] [address], 09246, 06/02/2025 08:54:26 creatini ne w/ estimate d GFR (eGFR), serum or plasma 2024 025 [facility], [address] [place] [address], 28160, 06/02/2025 08:54:26 AST/SGOT (asparta te aminotra nsferase ), serum or plasma [address] [place], [place] [address], [address] [place] [address], 878[address], 06/02/2025 08:54:26 ALT (alanine aminotra nsferase ), serum or plasma [address] [place], [place] [address], [address] [place] [address], 87175, 06/02/2025 08:54:26 PSA, total + free, serum or plasma [address] [place], [place] [address], [address] [place] [address], 23527, 06/02/2025 08:54:26 CBC w/ diff [address] [place], [place] [address], [address] [place] [address], 88983, 03/01/2025 12:45:04 HIV-1 RNA, quantita tive, PCR, serum or plasma [address] [place], [place] [address], [address] [place] [address], 04076, 03/01/2025 12:45:04 RPR (rapid plasma reagin), serum [address] [place], [place] [address], [address] [place] [address], 52842, 03/01/2025 12:45:04 T-cell regulato ry subsets panel, blood [address] [place], [place] [address], [address] [place] [address], 88774, 03/01/2025 12:45:04 creatini ne w/ estimate d GFR (eGFR), serum or plasma 2024 025 [facility], [address] [facility], [place] [address], [place], [address], 03/01/2025 12:45:04 AST/SGOT (asparta te aminotra nsferase ), serum or plasma 2024 025 [facility], [address] [facility], [facility] [address], [place], [address], 03/01/2025 12:45:04 ALT (alanine aminotra nsferase ), serum or plasma 2024 025 [facility], [address] [facility], [facility] [address], [place], [address], 03/01/2025 12:45:04 CBC w/ diff 2024 025 [facility], [address] [facility], [place] [address], [place], [address], 11/29/2024 10:07:15 HIV-1 RNA, quantita tive, PCR, serum or plasma 2024 025 [facility], [address] [facility], [facility] [address], [place], [address], 11/29/2024 10:07:16 RPR (rapid plasma reagin), serum [address] [place], [place] [address], [address] [facility], [place] [address], [place], [address], 11/29/2024 10:07:16 T-cell regulato ry subsets panel, blood 2024 025 [facility], [address] [facility], [facility] [address], [place], [address], 11/29/2024 10:07:16 creatini ne w/ estimate d GFR (eGFR), serum or plasma 2024 025 [facility], [address] [facility], [facility] [address], [place], [address], 11/29/2024 10:07:16 AST/SGOT (asparta te aminotra nsferase ), serum or plasma 2024 025 [facility], [address], [address], 11/29/2024 10:07:16 ALT (alanine aminotra nsferase ), serum or plasma 2024 025 [facility], [address] [facility] [address], [place], [address], 11/29/2024 10:07:16 CMP, serum or plasma 2024 025 [facility], [address], [address], 08/23/2024 12:07:12 lipid panel, serum 2024 025 [facility], [address], [address], 09/02/2024 12:33:08 amylase + lipase, serum 2024 025 [facility], [address], [address], 09/02/2024 12:33:08 TSH, serum or plasma 2024 025 [facility], [address], [address], 09/02/2024 12:33:08 HbA1c (hemoglo bin A1c), blood 2024 025 [facility], [address], [address], 09/02/2024 12:33:08 CBC w/ diff 2024 025 [facility], [address], [address], 09/02/2024 12:33:07 HIV-1 RNA, quantita tive, PCR, serum or plasma [address] [place] [address] [employer] [facility], [address] [place] [address], 27[address], 09/02/2024 12:33:07 RPR (rapid plasma reagin), serum 2024 025 [place] [address] [employer] [facility], [address] [place] [address], 824[address], 09/02/2024 12:33:08 T-cell regulato ry subsets panel, blood 2024 025 [place] [address] [employer] [facility], [address] [place] [address], 067[address], 09/02/2024 12:33:08 HBsAg (hepatit is B surface Ag), serum 2024 025 [place] [address] [employer] [facility], [address] [place] [address], 48[address], 09/02/2024 12:33:08 CBC w/ diff 2023 024 [facility], [address] [place] [address], 130[address], 05/20/2024 13:41:28 ALT (alanine aminotra nsferase ), serum or plasma 2023 024 [facility], [address] [place] [address], 98391, 05/20/2024 13:41:28 AST/SGOT (asparta te aminotra nsferase ), serum or plasma 2023 024 [facility], [address] [place] [address], 35[address], 05/20/2024 13:41:29 CT + NG DNA, PCR, unspecif ied specimen 2023 024 [facility], [address] [place] [address], 65874, 05/20/2024 13:41:29 creatini ne w/ estimate d GFR (eGFR), serum or plasma 2023 024 [facility], [address] [facility], [facility] [address], [place], [address], 05/20/2024 13:41:29 hepatiti s C virus Ab, serum 2023 [facility], [address] [facility], [facility] [address], [place], [address], 05/20/2024 13:41:29 HIV-1 RNA, quantita tive, PCR, serum or plasma 2023 024 [facility], [address] [facility], [facility] [address], [place], [address], 05/20/2024 13:41:29 RPR (rapid plasma reagin), serum 2023 024 [facility], [address] [facility], [facility] [address], [place], [address], 05/20/2024 13:41:29 T-cell regulato ry subsets panel, blood 2023 024 [facility], [address] [facility], [facility] [address], [place], [address], 05/20/2024 13:41:29 HBsAg (hepatit is B surface Ag), serum 2023 024 [facility], [address] [facility], [facility] [address], [place], [address], 05/20/2024 13:41:29 Referral None recorded . Procedures None recorded . Surgeries None recorded . Imaging None recorded . Medication Orders Voltaren Arthriti s Pain 1 % topical gel 2024 025 [facility][id number], [address] [place], [address], 05/24/2025 16:38:13 mupiroci n 2 % topical ointment 2024 025 [facility], [address] [place] [address], [address], 05/24/2025 16:38:13 doxycycl ine monohydr ate 100 mg capsule 2024 025 [facility] [address] [place] [address], 67[address], 05/24/2025 16:40:24 fluconaz ole 100 mg tablet 2024 025 [facility], [address] [place] [address], 6[address], 05/24/2025 16:38:12 hydroxyz ine HCl 50 mg tablet 2024 025 [facility], [address] [place] [address], 46[address], 05/24/2025 16:38:12 Biktarvy 50 mg-200 mg-25 mg tablet 2024 025 [facility], [address] [place] [address], 687[address], 05/24/2025 16:38:13 mupiroci n 2 % topical ointment 2024 025 [facility], [address] [place], [address], 02/22/2025 14:42:30 hydroxyz ine HCl 50 mg tablet 2024 025 [facility] #0969, [address] [place], [address], 02/22/2025 14:42:01 Biktarvy 50 mg-200 mg-25 mg tablet 2024 025 [facility] #0969, [address] [place] [address], 8[address], 02/22/2025 14:42:01 Biktarvy 50 mg-200 mg-25 mg tablet 2024 025 [facility] [address] [place], [address], 11/22/2024 14:40:20 Biktarvy 50 mg-200 mg-25 mg tablet 2024 025 [facility] [address] [place], [address], 08/22/2024 15:14:58 hydroxyz ine HCl 25 mg tablet 2023 024 [facility] [address] [place], [address], 05/13/2024 15:11:54 Biktarvy 50 mg-200 mg-25 mg tablet 2023 024 [facility] [address] [place], [address], 05/13/2024 15:09:21 mupiroci n 2 % topical ointment 2023 024 [facility] [address] [place], [address], 05/30/2024 22:28:26 Patient TargetsNo targets recorded. Patient InstructionsNo instructions recorded. Reason for Referral None Reported. Results Created Date Observation Date Name Description Value Unit Range Abnormal Flag Note LastModifiedBy Organization Detail LastModifiedTime 08/24/1908/23/2024 CBC WITH AUTO DIFFE RENTI AL WBC 5.7 K/mcL 4.8-10 .8 Not Available [facility] [address] [place] [address], [address], 08/23/2024 11:08:03 08/24/19 25 08/23/2024 CBC WITH AUTO DIFFE RENTI AL RBC 4.90 M/mcL 4.50-5 .50 Not Available [facility] [address] [place], [address], 08/23/2024 11:08:03 08/24/19 25 08/23/2024 CBC WITH AUTO DIFFE RENTI AL hemoglobin 14.8 g/dL 13.5-1 7.5 Not Available [facility] [address] [place], [address], 08/23/2024 11:08:03 08/24/19 25 08/23/2024 CBC WITH AUTO DIFFE RENTI AL hematocrit 44.7 % 42.0-5 4.0 Not Available [facility] [address] [place], [address], 08/23/2024 11:08:03 08/24/19 25 08/23/2024 CBC WITH AUTO DIFFE RENTI AL MCV 92.2 fL 79.0-9 8.0 Not Available [facility] [address] [place], [address], 08/23/2024 11:08:03 08/24/19 25 08/23/2024 CBC WITH AUTO DIFFE RENTI AL MCH 30.5 pcg 27.0-3 2.0 Not Available [facility] [address] [place], [address], 08/23/2024 11:08:03 08/24/19 25 08/23/2024 CBC WITH AUTO DIFFE RENTI AL MCHC 33.1 g/dL 32.0-3 7.0 Not Available [facility] [address] [place], [address], 08/23/2024 11:08:03 08/24/19 25 08/23/2024 CBC WITH AUTO DIFFE RENTI AL RDW 13.4 % 11.0-1 5.0 Not Available [facility] [address] [place], [address], 08/23/2024 11:08:03 08/24/19 25 08/23/2024 CBC WITH AUTO DIFFE RENTI AL platelets 222 K/mcL 130-40 0 Not Available [facility] [address] [place], [address], 08/23/2024 11:08:03 08/24/19 25 08/23/2024 CBC WITH AUTO DIFFE RENTI AL MPV 10.9 fL 7.0-11 .0 Not Available [facility] [address] [place], [address], 08/23/2024 11:08:03 08/24/19 25 08/23/2024 CBC WITH AUTO DIFFE RENTI AL NRBC 0.0 % <1.0 Not Available [facility] [address] [place], [address], 08/23/2024 11:08:03 08/24/19 25 08/23/2024 CBC WITH AUTO DIFFE RENTI AL NRBC absolute 0.00 K/mcL <0.10 Not Available [facility] [address] [place], [address], 08/23/2024 11:08:03 08/24/19 25 08/23/2024 CBC WITH AUTO DIFFE RENTI AL neutrophils relative 63.0 % Not Available [facility] [address] [place], [address], 08/23/2024 11:08:03 08/24/19 25 08/23/2024 CBC WITH AUTO DIFFE RENTI AL lymphocytes relative 26.1 % Not Available [facility] [address] [place], [address], 08/23/2024 11:08:03 08/24/19 25 08/23/2024 CBC WITH AUTO DIFFE RENTI AL monocytes relative 7.5 % Not Available [facility] [address] [place], [address], 08/23/2024 11:08:03 08/24/19 25 08/23/2024 CBC WITH AUTO DIFFE RENTI AL eosinophils relative 2.4 % Not Available [facility] [address] [place], [address], 08/23/2024 11:08:03 08/24/19 25 08/23/2024 CBC WITH AUTO DIFFE RENTI AL basophils relative 0.5 % Not Available [facility] [address] [place], [address], 08/23/2024 11:08:03 08/24/19 25 08/23/2024 CBC WITH AUTO DIFFE RENTI AL immature granulocytes relative 0.5 % Not Available [facility] [address] [place], [address], 08/23/2024 11:08:03 08/24/19 25 08/23/2024 CBC WITH AUTO DIFFE RENTI AL neutrophils absolute 3.61 K/mcL 1.50-7 .00 Not Available [facility] [address] [place], [address], 08/23/2024 11:08:03 08/24/19 25 08/23/2024 CBC WITH AUTO DIFFE RENTI AL lymphocytes absolute 1.50 K/mcL 1.00-5 .00 Not Available [facility] [address] [place], [address], 08/23/2024 11:08:03 08/24/19 25 08/23/2024 CBC WITH AUTO DIFFE RENTI AL monocytes absolute 0.43 K/mcL 0.20-1 .00 Not Available [facility] [address] [place], [address], 08/23/2024 11:08:03 08/24/19 25 08/23/2024 CBC WITH AUTO DIFFE RENTI AL eosinophils absolute 0.14 K/mcL 0.00-0 .50 Not Available [facility] [address] [place], [address], 08/23/2024 11:08:03 08/24/19 25 08/23/2024 CBC WITH AUTO DIFFE RENTI AL basophils absolute 0.03 K/mcL 0.00-0 .20 Not Available [facility] [address] [place], [address], 08/23/2024 11:08:03 08/24/19 25 08/23/2024 CBC WITH AUTO DIFFE RENTI AL immature granulocytes absolute 0.03 K/mcL 0.00-0 .03 Not Available [facility] [address] [place], [address], 08/23/2024 11:08:03 08/24/19 25 08/23/2024 CBC WITH AUTO DIFFE RENTI AL note See Report [facility], [address] [facility], [place], [place] [address] Not Available [facility] [address] [place], [address], 08/23/2024 11:08:03 08/24/19 25 08/23/2024 AMYLA SE amylase 211 unit/ L 25-115 high Not Available [facility] [address] [place], [address], 08/23/2024 11:25:05 08/24/19 25 08/23/2024 AMYLA SE note See Report high [facility], [address] [facility], [place], [place] [address] Not Available [facility] [address] [place], [address], 08/23/2024 11:25:05 08/24/19 25 08/23/2024 LIPID PANEL WITH REFLE X TO DIREC T LDL cholesterol 210 mg/dL 0-200 high Not Available [facility] [address] [place], [address], 08/23/2024 11:26:05 08/24/19 25 08/23/2024 LIPID PANEL WITH REFLE X TO DIREC T LDL triglyceride s 154 mg/dL 0-150 high Not Available [facility] [address] [place], [address], 08/23/2024 11:26:05 08/24/19 25 08/23/2024 LIPID PANEL WITH REFLE X TO DIREC T LDL HDL 58 mg/dL >=40 Not Available [facility] [address] [place], [address], 08/23/2024 11:26:05 08/24/19 25 08/23/2024 LIPID PANEL WITH REFLE X TO DIREC T LDL LDL calculated 121 mg/dL 0-100 high Not Available [facility] [address] [place], [address], 08/23/2024 11:26:05 08/24/19 25 08/23/2024 LIPID PANEL WITH REFLE X TO DIREC T LDL VLDL cholesterol aj 30.8 mg/dL Not Available [facility] [address] [place], [address], 08/23/2024 11:26:05 08/24/19 25 08/23/2024 LIPID PANEL WITH REFLE X TO DIREC T LDL non HDL chol. (LDL+VLDL) 152 mg/dL <145 high Not Available [facility] [address] [place], [address], 08/23/2024 11:26:05 08/24/19 25 08/23/2024 LIPID PANEL WITH REFLE X TO DIREC T LDL chol/HDL ratio 3.6 0.0-4. 4 Not Available [facility] [address] [place], [address], 08/23/2024 11:26:05 08/24/19 25 08/23/2024 LIPID PANEL WITH REFLE X TO DIREC T LDL note See Report [facility], [address] [facility], [facility] [place], [facility] [place] [address] Not Available [facility] [address] [place], [address], 08/23/2024 11:26:05 08/24/19 25 08/23/2024 THYRO ID STIMU LATIN G HORMO NE TSH 2.20 mciu/ mL 0.40-4 .00 Not Available [facility] [address] [place], [address], 08/23/2024 11:39:03 08/24/19 25 08/23/2024 THYRO ID STIMU LATIN G HORMO NE note See Report [facility], [address] [facility], [facility] d, [facility] [place] [address] Not Available [facility] [address] [place], [address], 08/23/2024 11:39:03 08/24/19 25 08/23/2024 LIPAS E lipase 411 unit/ L 13-75 high Not Available [facility] [address] [place] [address], [address], 08/23/2024 11:45:04 08/24/19 25 08/23/2024 LIPAS E note See Report high [facility], [address] [facility], [facility] [facility], [facility] [place] [place] [address] Not Available [facility] [address] [place], [address], 08/23/2024 11:45:04 08/24/19 25 08/23/2024 HEPAT ITIS B SURFA CE ANTIG EN WITH REFLE X TO CONFI RMATI ON hepatitis B surface Ag Negati ve negati ve Not Available [facility] [address] [place] [address], [address], 08/23/2024 11:50:07 08/24/19 25 08/23/2024 HEPAT ITIS B SURFA CE ANTIG EN WITH REFLE X TO CONFI RMATI ON note See Report [facility], [address] [facility], [facility] [facility], [facility] [place] [address] Not Available [facility] [address] [place] [address], [address], 08/23/2024 11:50:07 08/24/19 25 08/23/2024 TREPO NEMA PALLI DUM ANTIB BRENDAN WITH REFLE X TO RPR AND PARTI KENA AGGLU TINAT ION T. pallidum antibodies Negati ve negati ve Not Available [facility] [address] [place], [address], 08/23/2024 11:52:07 08/24/19 25 08/23/2024 TREPO NEMA PALLI DUM ANTIB BRENDAN WITH REFLE X TO RPR AND PARTI KENA AGGLU TINAT ION note See Report [facility], [address] [facility], [facility] [facility], [facility] [place] [address] Not Available [facility] [address] [place], [address], 08/23/2024 11:52:07 08/24/19 25 08/23/2024 COMPR EHENS SANDY METAB OLIC PANEL sodium 139 mmol/ L 133-14 5 Not Available [facility] [address] [place], [address], 08/23/2024 12:07:12 08/24/19 25 08/23/2024 COMPR EHENS SANDY METAB OLIC PANEL potassium 4.9 mmol/ L 3.5-5. 5 Not Available [facility] [address] [place], [address], 08/23/2024 12:07:12 08/24/19 25 08/23/2024 COMPR EHENS SANDY METAB OLIC PANEL chloride 106 mmol/ L 96-110 Not Available [facility] [address] [place], [address], 08/23/2024 12:07:12 08/24/19 25 08/23/2024 COMPR EHENS SANDY METAB OLIC PANEL CO2 29 mmol/ L 21-32 Not Available [facility] [address] [place], [address], 08/23/2024 12:07:12 08/24/1908/23/2024 COMPR EHENS SANDY METAB OLIC PANEL anion gap 4 3-11 Not Available [facility] [address] [place], [address], 08/23/2024 12:07:12 08/24/1908/23/2024 COMPR EHENS SANDY METAB OLIC PANEL glucose 92 mg/dL 70-100 Not Available [facility] [address] [place], [address], 08/23/2024 12:07:12 08/24/19 25 08/23/2024 COMPR EHENS SANDY METAB OLIC PANEL BUN 20 mg/dL 5-25 Not Available [facility] [address] [place], [address], 08/23/2024 12:07:12 08/24/19 25 08/23/2024 COMPR EHENS SANDY METAB OLIC PANEL creatinine 1.19 mg/dL 0.70-1 .30 Not Available [facility] [address] [place], [address], 08/23/2024 12:07:12 08/24/19 25 08/23/2024 COMPR EHENS SANDY METAB OLIC PANEL eGFR 70 mL/mi n/1.7 3m2 >=60 Calcu latio n based on the Chron ic Kidne y Disea se Epide miolo gy Colla borat ion (CKD- EPI) equat ion refit witho ut adjus tment for race. Not Available [facility] [address] [place], [address], 08/23/2024 12:07:12 08/24/1908/23/2024 COMPR EHENS SANDY METAB OLIC PANEL BUN/creatini ne ratio 16.8 Not Available [facility] [address] [place], [address], 08/23/2024 12:07:12 08/24/19 25 08/23/2024 COMPR EHENS SANDY METAB OLIC PANEL calcium 9.2 mg/dL 8.5-10 .5 Not Available [facility] [address] [place], [address], 08/23/2024 12:07:12 08/24/19 25 08/23/2024 COMPR EHENS SANDY METAB OLIC PANEL AST (SGOT) 13 unit/ L 10-42 Not Available [facility] [address] [place], [address], 08/23/2024 12:07:12 08/24/19 25 08/23/2024 COMPR EHENS SANDY METAB OLIC PANEL ALT (SGPT) 46 unit/ L 10-60 Not Available [facility] [address] [place], [address], 08/23/2024 12:07:12 08/24/19 25 08/23/2024 COMPR EHENS SANDY METAB OLIC PANEL alkaline phosphatase 96 unit/ L 42-121 Not Available [facility] [address] [place], [address], 08/23/2024 12:07:12 08/24/19 25 08/23/2024 COMPR EHENS SANDY METAB OLIC PANEL total protein 7.0 g/dL 6.0-8. 0 Not Available [facility] [address] [place] [address], [address], 08/23/2024 12:07:12 08/24/19 25 08/23/2024 COMPR EHENS SANDY METAB OLIC PANEL albumin 3.8 g/dL 3.2-5. 0 Not Available [facility] [address] [place] [address], [address], 08/23/2024 12:07:12 08/24/19 25 08/23/2024 COMPR EHENS SANDY METAB OLIC PANEL total bilirubin 0.7 mg/dL 0.0-1. 4 Not Available [facility] [address] [place] [address], [address], 08/23/2024 12:07:12 08/24/19 25 08/23/2024 COMPR EHENS SANDY METAB OLIC PANEL note See Report [facility], [address] [place] [address], [address], [place] [address] Not Available [facility] [address] [place] [address], [address], 08/23/2024 12:07:12 08/24/19 25 08/23/2024 HIV 1 MOLEC ULAR STUDY QUANT ITATI VE HIV-1 RNA interpretati on Detect ed not detect ed abnormal Not Available [facility] [address] [place] [address], [address], 08/23/2024 15:03:28 08/24/19 25 08/23/2024 HIV 1 MOLEC ULAR STUDY QUANT ITATI VE HIV-1 RNA copies < copie s/mL <20 HIV RNA detec karen but below the limit of quant itati on. Unabl e to repor t quant itati ve resul ts <20 copie s/mL. Not Available [facility] [address] [place] [address], [address], 08/23/2024 15:03:28 08/24/19 25 08/23/2024 HIV 1 MOLEC ULAR STUDY QUANT ITATI VE HIV-1 RNA log < log_1 0_cop ies/m L <1.30 Not Available [facility] [address] [place] [address], [address], 08/23/2024 15:03:28 08/24/19 25 08/23/2024 HIV 1 MOLEC ULAR STUDY QUANT ITATI VE note See Report [facility], [address] [facility], [place] gfiel d, [place] [phone] Not Available [facility] [address] [place] [address], [address], 08/23/2024 15:03:28 08/24/19 25 08/23/2024 LYMPH OCYTE T-KATIA L PANEL cd4 671 cells /mcL 426-17 76 Not Available [facility] [address] [place] [address], [address], 08/25/2024 07:04:36 08/24/19 25 08/23/2024 LYMPH OCYTE T-KATIA L PANEL cd8 300 cells /mcL 161-83 8 Not Available [facility] [address] [place] [address], [address], 08/25/2024 07:04:36 08/24/19 25 08/23/2024 LYMPH OCYTE T-KATIA L PANEL cd4/cd8 ratio 2.24 0.90-4 .90 Not Available [facility] [address] [place] [address], [id number], 08/25/2024 07:04:36 08/24/19 25 08/23/2024 LYMPH OCYTE T-KATIA L PANEL cd4 % 45 % 33-64 Not Available [facility] [address] [place] [address], [id number], 08/25/2024 07:04:36 08/24/19 25 08/23/2024 LYMPH OCYTE T-KATIA L PANEL cd8 % 20 % 10-39 Not Available [facility] [address] [place] [address], [id number], 08/25/2024 07:04:36 08/24/19 25 08/23/2024 LYMPH OCYTE T-KATIA L PANEL note See Report [facility], [address] [facility], [place], [place] [id number] Not Available [facility] [address] [place] [address], [id number], 08/25/2024 07:04:36 03/06/20 25 03/06/2025 CBC WITH AUTO DIFFE RENTI AL WBC 5.8 K/mcL 4.8-10 .8 Not Available [facility] [address] [place], [id number], 03/06/2025 14:11:26 03/06/20 25 03/06/2025 CBC WITH AUTO DIFFE RENTI AL RBC 4.60 M/mcL 4.50-5 .50 Not Available [facility] [address] [place] [address], [id number], 03/06/2025 14:11:26 03/06/20 25 03/06/2025 CBC WITH AUTO DIFFE RENTI AL hemoglobin 13.6 g/dL 13.5-1 7.5 Not Available [facility] [address] [place], [address], 03/06/2025 14:11:26 03/06/20 25 03/06/2025 CBC WITH AUTO DIFFE RENTI AL hematocrit 42.6 % 42.0-5 4.0 Not Available [facility] [address] [place], [address], 03/06/2025 14:11:26 03/06/20 25 03/06/2025 CBC WITH AUTO DIFFE RENTI AL MCV 93.4 fL 79.0-9 8.0 Not Available [facility] [address] [place], [address], 03/06/2025 14:11:26 03/06/20 25 03/06/2025 CBC WITH AUTO DIFFE RENTI AL MCH 29.8 pcg 27.0-3 2.0 Not Available [facility] [address] [place], [address], 03/06/2025 14:11:26 03/06/20 25 03/06/2025 CBC WITH AUTO DIFFE RENTI AL MCHC 31.9 g/dL 32.0-3 7.0 low Not Available [facility] [address] [place], [address], 03/06/2025 14:11:26 03/06/20 25 03/06/2025 CBC WITH AUTO DIFFE RENTI AL RDW 14.1 % 11.0-1 5.0 Not Available [facility] [address] [place], [address], 03/06/2025 14:11:26 03/06/20 25 03/06/2025 CBC WITH AUTO DIFFE RENTI AL platelets 265 K/mcL 130-40 0 Not Available [facility] [address] [place], [address], 03/06/2025 14:11:26 03/06/20 25 03/06/2025 CBC WITH AUTO DIFFE RENTI AL MPV 11.2 fL 7.0-11 .0 high Not Available [facility] [address] [place], [address], 03/06/2025 14:11:26 03/06/20 25 03/06/2025 CBC WITH AUTO DIFFE RENTI AL NRBC 0.0 % <1.0 Not Available [facility] [address] [place], [address], 03/06/2025 14:11:26 03/06/20 25 03/06/2025 CBC WITH AUTO DIFFE RENTI AL NRBC absolute 0.00 K/mcL <0.10 Not Available [facility] [address] [place], [address], 03/06/2025 14:11:26 03/06/20 25 03/06/2025 CBC WITH AUTO DIFFE RENTI AL neutrophils relative 57.4 % Not Available [facility] [address] [place], [address], 03/06/2025 14:11:26 03/06/20 25 03/06/2025 CBC WITH AUTO DIFFE RENTI AL lymphocytes relative 28.9 % Not Available [facility] [address] [place], [address], 03/06/2025 14:11:26 03/06/20 25 03/06/2025 CBC WITH AUTO DIFFE RENTI AL monocytes relative 11.2 % Not Available [facility] [address] [place], [address], 03/06/2025 14:11:26 03/06/20 25 03/06/2025 CBC WITH AUTO DIFFE RENTI AL eosinophils relative 1.7 % Not Available [facility] [address] [place], [address], 03/06/2025 14:11:26 03/06/20 25 03/06/2025 CBC WITH AUTO DIFFE RENTI AL basophils relative 0.5 % Not Available [facility] [address] [place], [address], 03/06/2025 14:11:26 03/06/20 25 03/06/2025 CBC WITH AUTO DIFFE RENTI AL immature granulocytes relative 0.3 % Not Available [facility] [address] [place], [address], 03/06/2025 14:11:26 03/06/20 25 03/06/2025 CBC WITH AUTO DIFFE RENTI AL neutrophils absolute 3.33 K/mcL 1.50-7 .00 Not Available [facility] [address] [place], [address], 03/06/2025 14:11:26 03/06/20 25 03/06/2025 CBC WITH AUTO DIFFE RENTI AL lymphocytes absolute 1.68 K/mcL 1.00-5 .00 Not Available [facility] [address] [place], [address], 03/06/2025 14:11:26 03/06/20 25 03/06/2025 CBC WITH AUTO DIFFE RENTI AL monocytes absolute 0.65 K/mcL 0.20-1 .00 Not Available [facility] [address] [place], [address], 03/06/2025 14:11:26 03/06/20 25 03/06/2025 CBC WITH AUTO DIFFE RENTI AL eosinophils absolute 0.10 K/mcL 0.00-0 .50 Not Available [facility] [address] [place], [address], 03/06/2025 14:11:26 03/06/20 25 03/06/2025 CBC WITH AUTO DIFFE RENTI AL basophils absolute 0.03 K/mcL 0.00-0 .20 Not Available [facility] [address] [place], [address], 03/06/2025 14:11:26 03/06/20 25 03/06/2025 CBC WITH AUTO DIFFE RENTI AL immature granulocytes absolute 0.02 K/mcL 0.00-0 .03 Not Available [facility] [address] [place] [address], [address], 03/06/2025 14:11:26 03/06/20 25 03/06/2025 CBC WITH AUTO DIFFE RENTI AL note See Report [facility], [address] [facility], [place] [address], [place] [address] Not Available [facility] [address] [place], [address], 03/06/2025 14:11:26 03/06/20 25 03/06/2025 TREPO NEMA PALLI DUM ANTIB BRENDAN WITH REFLE X TO RPR AND PARTI KENA AGGLU TINAT ION T. pallidum antibodies Negati ve negati ve Not Available [facility] [address] [place], [address], 03/06/2025 16:31:24 03/06/20 25 03/06/2025 TREPO NEMA PALLI DUM ANTIB BRENDAN WITH REFLE X TO RPR AND PARTI KENA AGGLU TINAT ION note See Report [facility], [address] [facility], [place], [place] [id number] Not Available [facility] [address] [place], [address], 03/06/2025 16:31:24 03/06/20 25 03/06/2025 HIV 1 MOLEC ULAR STUDY QUANT ITATI VE HIV-1 RNA interpretati on Detect ed not detect ed abnormal Not Available [facility] [address] [place] [address], [address], 03/07/2025 14:56:10 03/06/20 25 03/06/2025 HIV 1 MOLEC ULAR STUDY QUANT ITATI VE HIV-1 RNA copies < copie s/mL <20 HIV RNA detec karen but below the limit of quant itati on. Unabl e to repor t quant itati ve resul ts <20 copie s/mL. Not Available [facility] [address] [place] [address], [address], 03/07/2025 14:56:10 03/06/20 25 03/06/2025 HIV 1 MOLEC ULAR STUDY QUANT ITATI VE HIV-1 RNA log < log_1 0_cop ies/m L <1.30 Not Available [facility] [address] [place] [address], [address], 03/07/2025 14:56:10 03/06/20 25 03/06/2025 HIV 1 MOLEC ULAR STUDY QUANT ITATI VE note See Report [facility], [address] [place] [address], [place], [place] [id number] Not Available [facility] [address] [place] [address], [address], 03/07/2025 14:56:10 03/06/20 25 03/06/2025 LYMPH OCYTE T-KATIA L PANEL cd4 680 cells /mcL 426-17 76 Not Available [facility] [address] [place] [address], [address], 03/10/2025 09:24:47 03/06/20 25 03/06/2025 LYMPH OCYTE T-KATIA L PANEL cd8 314 cells /mcL 161-83 8 Not Available [facility] [address] [place] [address], [address], 03/10/2025 09:24:47 03/06/20 25 03/06/2025 LYMPH OCYTE T-KATIA L PANEL cd4/cd8 ratio 2.17 0.90-4 .90 Not Available [facility] [address] [place] [address], [address], 03/10/2025 09:24:47 03/06/20 25 03/06/2025 LYMPH OCYTE T-KATIA L PANEL cd4 % 48 % 33-64 Not Available [facility] [address] [place] [address], [address], 03/10/2025 09:24:47 03/06/20 25 03/06/2025 LYMPH OCYTE T-KATIA L PANEL cd8 % 22 % 10-39 Not Available [facility] [address] [place] [address], [address], 03/10/2025 09:24:47 03/06/20 25 03/06/2025 LYMPH OCYTE T-KATIA L PANEL note See Report [facility], [address] [facility], [address] [place] [id number] Not Available [facility] [address] [place] [address], [address], 03/10/2025 09:24:47 05/31/20 25 05/31/2025 CBC WITH AUTO DIFFE RENTI AL WBC 5.2 K/mcL 4.8-10 .8 Not Available [facility] [address] [place] [address], [address], 05/31/2025 18:22:16 05/31/20 25 05/31/2025 CBC WITH AUTO DIFFE RENTI AL RBC 4.80 M/mcL 4.50-5 .50 Not Available [facility] [address] [place] [address], [address], 05/31/2025 18:22:16 05/31/20 25 05/31/2025 CBC WITH AUTO DIFFE RENTI AL hemoglobin 14.1 g/dL 13.5-1 7.5 Not Available [facility] [address] [place] [address], [address], 05/31/2025 18:22:16 05/31/20 25 05/31/2025 CBC WITH AUTO DIFFE RENTI AL hematocrit 43.2 % 42.0-5 4.0 Not Available [facility] [address] [place], [address], 05/31/2025 18:22:16 05/31/20 25 05/31/2025 CBC WITH AUTO DIFFE RENTI AL MCV 90.4 fL 79.0-9 8.0 Not Available [facility] [address] [place], [address], 05/31/2025 18:22:16 05/31/20 25 05/31/2025 CBC WITH AUTO DIFFE RENTI AL MCH 29.5 pcg 27.0-3 2.0 Not Available [facility] [address] [place], [address], 05/31/2025 18:22:16 05/31/20 25 05/31/2025 CBC WITH AUTO DIFFE RENTI AL MCHC 32.6 g/dL 32.0-3 7.0 Not Available [facility] [address] [place], [address], 05/31/2025 18:22:16 05/31/20 25 05/31/2025 CBC WITH AUTO DIFFE RENTI AL RDW 13.3 % 11.0-1 5.0 Not Available [facility] [address] [place], [address], 05/31/2025 18:22:16 05/31/20 25 05/31/2025 CBC WITH AUTO DIFFE RENTI AL platelets 224 K/mcL 130-40 0 Not Available [facility] [address] [place], [address], 05/31/2025 18:22:16 05/31/20 25 05/31/2025 CBC WITH AUTO DIFFE RENTI AL MPV 11.3 fL 7.0-11 .0 high Not Available [facility] [address] [place], [address], 05/31/2025 18:22:16 05/31/20 25 05/31/2025 CBC WITH AUTO DIFFE RENTI AL NRBC 0.0 % <1.0 Not Available [facility] [address] [place], [address], 05/31/2025 18:22:16 05/31/20 25 05/31/2025 CBC WITH AUTO DIFFE RENTI AL NRBC absolute 0.00 K/mcL <0.10 Not Available [facility] [address] [place], [address], 05/31/2025 18:22:16 05/31/20 25 05/31/2025 CBC WITH AUTO DIFFE RENTI AL neutrophils relative 57.4 % Not Available [facility] [address] [place], [address], 05/31/2025 18:22:16 05/31/20 25 05/31/2025 CBC WITH AUTO DIFFE RENTI AL lymphocytes relative 28.5 % Not Available [facility] [address] [place], [address], 05/31/2025 18:22:16 05/31/20 25 05/31/2025 CBC WITH AUTO DIFFE RENTI AL monocytes relative 10.2 % Not Available [facility] [address] [place], [address], 05/31/2025 18:22:16 05/31/20 25 05/31/2025 CBC WITH AUTO DIFFE RENTI AL eosinophils relative 2.7 % Not Available [facility] [address] [place], [address], 05/31/2025 18:22:16 05/31/20 25 05/31/2025 CBC WITH AUTO DIFFE RENTI AL basophils relative 0.6 % Not Available [facility] [address] [place], [address], 05/31/2025 18:22:16 05/31/20 25 05/31/2025 CBC WITH AUTO DIFFE RENTI AL immature granulocytes relative 0.6 % Not Available [facility] [address] [place], [address], 05/31/2025 18:22:16 05/31/20 25 05/31/2025 CBC WITH AUTO DIFFE RENTI AL neutrophils absolute 2.98 K/mcL 1.50-7 .00 Not Available [facility] [address] [place], [address], 05/31/2025 18:22:16 05/31/20 25 05/31/2025 CBC WITH AUTO DIFFE RENTI AL lymphocytes absolute 1.48 K/mcL 1.00-5 .00 Not Available [facility] [address] [place], [address], 05/31/2025 18:22:16 05/31/20 25 05/31/2025 CBC WITH AUTO DIFFE RENTI AL monocytes absolute 0.53 K/mcL 0.20-1 .00 Not Available [facility] [address] [place] [address], [address], 05/31/2025 18:22:16 05/31/20 25 05/31/2025 CBC WITH AUTO DIFFE RENTI AL eosinophils absolute 0.14 K/mcL 0.00-0 .50 Not Available [facility] [address] [place], [address], 05/31/2025 18:22:16 05/31/20 25 05/31/2025 CBC WITH AUTO DIFFE RENTI AL basophils absolute 0.03 K/mcL 0.00-0 .20 Not Available [facility] [address] [place] [address], [address], 05/31/2025 18:22:16 05/31/20 25 05/31/2025 CBC WITH AUTO DIFFE RENTI AL immature granulocytes absolute 0.03 K/mcL 0.00-0 .03 Not Available [facility] [address] [place], [address], 05/31/2025 18:22:16 05/31/20 25 05/31/2025 CBC WITH AUTO DIFFE RENTI AL note See Report [facility], [address] [facility], [place], [place] [address] Not Available [facility] [address] [place] [address], [address], 05/31/2025 18:22:16 05/31/20 25 05/31/2025 PSA TOTAL , FREE AND COMPL EXED PSA 1.19 NG/mL 0.00-4 .00 Not Available [facility] [address] [place] [address], [address], 05/31/2025 18:39:19 05/31/20 25 05/31/2025 PSA TOTAL , FREE AND COMPL EXED PSA, complexed 1.09 NG/mL 0.00-3 .00 Not Available [facility] [address] [place], [address], 05/31/2025 18:39:19 05/31/20 25 05/31/2025 PSA TOTAL , FREE AND COMPL EXED PSA, free 0.1 NG/mL Not Available [facility] [address] [place] [address], [address], 05/31/2025 18:39:19 05/31/20 25 05/31/2025 PSA TOTAL , FREE AND COMPL EXED PSA, free pct 8.4 % >25.0 low Free PSA is a calcu lated value . The diagn ostic usefu lness of % free PSA has not been estab lishe d in patie nts with Total PSA below 2.6 or above 10 ng/mL . Not Available [facility] [address] [place] [address], [address], 05/31/2025 18:39:19 05/31/20 25 05/31/2025 PSA TOTAL , FREE AND COMPL EXED note See Report [facility], [address] [facility], [address], [place] [id number] Not Available [facility] [address] [place], [address], 05/31/2025 18:39:19 05/31/20 25 05/31/2025 RENETTA NE AMINO TRANS FERAS E ALT (SGPT) 20 unit/ L 10-60 Not Available [facility] [address] [place], [address], 05/31/2025 18:40:20 05/31/20 25 05/31/2025 RENETTA NE AMINO TRANS FERAS E note See Report [facility], [address] [facility], [place], [place] [address] Not Available [facility] [address] [place], [address], 05/31/2025 18:40:20 05/31/20 25 05/31/2025 CREAT ININE creatinine 1.14 mg/dL 0.70-1 .30 Not Available [facility] [address] [place], [address], 05/31/2025 18:40:22 05/31/20 25 05/31/2025 CREAT ININE eGFR 73 mL/mi n/1.7 3m2 >=60 Calcu latio n based on the Chron ic Kidne y Disea se Epide miolo gy Colla borat ion (CKD- EPI) equat ion refit witho ut adjus tment for race. Not Available [facility] [address] [place], [address], 05/31/2025 18:40:22 05/31/20 25 05/31/2025 CREAT ININE note See Report [facility], [address] [facility], [place], [facility] [id number] Not Available [facility] [address] [place], [address], 05/31/2025 18:40:22 05/31/20 25 05/31/2025 ASPAR MOELLER AMINO TRANS FERAS E AST (SGOT) 17 unit/ L 10-42 Not Available [facility] [address] [place], [address], 05/31/2025 18:41:20 05/31/20 25 05/31/2025 ASPAR MOELLER AMINO TRANS FERAS E note See Report [facility], [address] [facility], [place] [place], [place] [address] Not Available [facility] [address] [place], [address], 05/31/2025 18:41:20 05/31/20 25 05/31/2025 TREPO NEMA PALLI DUM ANTIB BRENDAN WITH REFLE X TO RPR AND PARTI KENA AGGLU TINAT ION T. pallidum antibodies Negati ve negati ve Not Available [facility] [address] [place], [address], 05/31/2025 18:55:22 05/31/20 25 05/31/2025 TREPO NEMA PALLI DUM ANTIB BRENDAN WITH REFLE X TO RPR AND PARTI KENA AGGLU TINAT ION note See Report [facility], [address] [facility], [address], [facility] [place] [id number] Not Available [facility] [address] [place], [address], 05/31/2025 18:55:22 05/31/20 25 05/31/2025 HIV 1 MOLEC ULAR STUDY QUANT ITATI VE HIV-1 RNA interpretati on Not Detect ed not detect ed HIV RNA not detec karen, unabl e to repor t quant itati ve resul ts. Not Available [facility] [address] [place] [address], [address], 06/01/2025 12:24:16 05/31/20 25 05/31/2025 HIV 1 MOLEC ULAR STUDY QUANT ITATI VE note See Report [facility], [address] [facility], [facility], [facility] [place] [id number] Not Available [facility] [address] [place] [address], [address], 06/01/2025 12:24:16 Result Notes None recorded. Problems Name Problem SNOMED Code Status Onset Date Resolution Date Notes Provider Name and Address Organization Details Recorded Time Dizziness and giddiness 527776025 Active 2003 Dizziness and giddiness; snomeddesc ription: Vertigo; Report Immunity to Registry: Yes; Notes: vertigo; Not Available [facility] 4 06:58:27 Vertigo 575796491 Active 2003 Vertigo; snomeddesc ription: Vertigo; Report Immunity to Registry: Yes; Notes: vertigo; Not Available [facility] 4 06:58:30 Primary malignant neoplasm of skin 13794299 Active 2004 Unspecifie d malignant neoplasm of skin, unspecifie d; snomeddesc ription: Malignant neoplasm of skin; Report Immunity to Registry: Yes; Notes: basal cell forearm; removed surgical; not active; Remote; Not Available [facility] 4 06:58:26 Insomnia 293831095 Active 2004 Insomnia; Report Immunity to Registry: Yes; Not Available [facility] 4 06:58:27 Depressiv e disorder 66130984 Active 2004 Other specified depressive episodes; snomeddesc ription: Symptoms of depression ; Report Immunity to Registry: Yes; Notes: derpession /anxiety/i nsomnia hx; Not Available [facility] 4 06:58:29 Symptoms of depressio n 262902265 Active 2004 Symptoms of depression ; snomeddesc ription: Symptoms of depression ; Report Immunity to Registry: Yes; Notes: derpession /anxiety/i nsomnia hx; Not Available [facility] 4 06:58:29 Anxiety 11236439 Active 2004 Anxiety; snomeddesc ription: Anxiety; Report Immunity to Registry: Yes; Notes: panic disorder (chest pain/palpi tations)/d epression; Not Available [facility] 4 06:58:31 Malignant neoplasm of skin 225329897 Active 2004 Malignant neoplasm of skin; snomeddesc ription: Malignant neoplasm of skin; Report Immunity to Registry: Yes; Notes: basal cell forearm; removed surgical; not active; Remote; Not Available [facility] 4 06:58:31 Anxiety disorder 330672572 Active 2004 Anxiety disorder, unspecifie d; snomeddesc ription: Anxiety; Report Immunity to Registry: Yes; Notes: panic disorder (chest pain/palpi tations)/d epression; Not Available [facility] 4 06:58:32 Vitamin D deficienc y 16606198 Active 2009 Vitamin D deficiency ; Report Immunity to Registry: Yes; Not Available [facility] 4 06:58:29 Hemorrhoi ds 40452987 Active 2009 Hemorrhoid s; snomeddesc ription: Hemorrhoid s; Report Immunity to Registry: Yes; Notes: internal and external; Unspecifi ed hemorrhoid s; snomeddesc ription: Hemorrhoid s; Report Immunity to Registry: Yes; Notes: internal and external; Not Available [facility] 4 06:58:32 Nasal congestio n 79148586 Active 2009 Nasal congestion ; snomeddesc ription: Nasal congestion ; Report Immunity to Registry: Yes; Notes: sinusitis/ allergies; Nasal congestion ; snomeddesc ription: Nasal congestion ; Report Immunity to Registry: Yes; Notes: sinusitis/ allergies; Not Available [facility] 4 06:58:33 Gout 62177102 Active 2009 Gout; Report Immunity to Registry: Yes; Not Available [facility] 4 06:58:33 Ulcer of esophagus 49012489 Active 2010 Ulcer of esophagus; snomeddesc ription: Ulcer of esophagus; Report Immunity to Registry: Yes; Notes: EGD/biopsy 2014; ulcerative esophagiti s ; Ulcer of esophagus without bleeding; snomeddesc ription: Ulcer of esophagus; Report Immunity to Registry: Yes; Notes: EGD/biopsy 2014; ulcerative esophagiti s ; Not Available [facility] 4 06:58:27 Essential hypertens ion 65225844 Active 2010 Essential (primary) hypertensi on; snomeddesc ription: Hypertensi ve disorder; Report Immunity to Registry: Yes; Not Available [facility] 4 06:58:28 Hypertens sandy disorder 93416038 Active 2010 Hypertensi ve disorder; snomeddesc ription: Hypertensi ve disorder; Report Immunity to Registry: Yes; Not Available [facility] 4 06:58:28 Benign prostatic hyperplas ia 052839663 Active 2011 Benign prostatic hyperplasi a; snomeddesc ription: Benign prostatic hyperplasi a; Report Immunity to Registry: Yes; Benign prostatic hyperplasi a without lower urinary tract symptoms; snomeddesc ription: Benign prostatic hyperplasi a; Report Immunity to Registry: Yes; Not Available [facility] 4 06:58:28 Polyneuro randal 50677468 Active 2011 Polyneurop athy, unspecifie d; snomeddesc ription: Neuropathy ; Report Immunity to Registry: Yes; Not Available [facility] 4 06:58:29 Hyperlipi demia 61452505 Active 2011 Hyperlipid emia; snomeddesc ription: Hyperlipid emia; Report Immunity to Registry: Yes; Hyperlipi demia, unspecifie d; snomeddesc ription: Hyperlipid emia; Report Immunity to Registry: Yes; Not Available [facility] 4 06:58:32 Neuropath y 877076054 Active 2011 Neuropathy ; snomeddesc ription: Neuropathy ; Report Immunity to Registry: Yes; Not Available [facility] 4 06:58:33 Spasm 15155690 Active 2012 Muscle spasm; Report Immunity to Registry: Yes; Notes: upper/lowe r back/chron ic pain; Not Available [facility] 4 06:58:27 Chronic back pain 141166416 Active 2012 Chronic back pain; snomeddesc ription: Chronic back pain; Report Immunity to Registry: Yes; Notes: chronic back pain/gener alized pain back surgery 09/2018 dx l2-3 stenosis l2-3 decompessi on partial laminectom y medial fecetectom y foraminoto jose bilateral; Not Available [facility] 4 06:58:30 Pain in thoracic spine 391009918 Active 2012 Dorsalgia, unspecifie d; snomeddesc ription: Chronic back pain; Report Immunity to Registry: Yes; Notes: chronic back pain/gener alized pain back surgery 09/2018 dx l2-3 stenosis l2-3 decompessi on partial laminectom y medial fecetectom y foraminoto jose bilateral; Not Available [facility] 4 06:58:31 Furuncle 552632062 Active 2014 Furuncle; snomeddesc ription: Furuncle; Report Immunity to Registry: Yes; Notes: skin/forea christine/follic ulitis; Furuncle, unspecifie d; snomeddesc ription: Furuncle; Report Immunity to Registry: Yes; Notes: skin/forea christine/follic ulitis; Not Available [facility] 4 06:58:30 Herpesvir us infection 45316129 Active 2015 Herpesvira l infection, unspecifie d; snomeddesc ription: Herpes simplex; Report Immunity to Registry: Yes; Notes: HSV 1 pos w oral HSV sores; HSV 2 neg 2015; Not Available [facility] 4 06:58:26 Herpes simplex 52775549 Active 2015 Herpes simplex; snomeddesc ription: Herpes simplex; Report Immunity to Registry: Yes; Notes: HSV 1 pos w oral HSV sores; HSV 2 neg 2015; Not Available [facility] 4 06:58:27 Human immunodef iciency virus infection 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 Human immunodefi ciency virus infection; snomeddesc ription: Human immunodefi ciency virus infection; Report Immunity to Registry: Yes; Notes: [id number] neg ; Human immunodefi ciency virus [HIV] disease; snomeddesc ription: Human immunodefi ciency virus infection; Report Immunity to Registry: Yes; Notes: [id number] neg ; Not Available [facility] 4 06:58:32 Hemangiom a of intra-abd ominal structure 333799714 Active 2015 Hemangioma of intra-abdo maddi structures ; snomeddesc ription: Hemangioma of liver; Report Immunity to Registry: Yes; Not Available [facility] 4 06:58:28 Hemangiom a of liver 35350036 Active 2015 Hemangioma of liver; snomeddesc ription: Hemangioma of liver; Report Immunity to Registry: Yes; Not Available [facility] 4 06:58:31 Blood chemistry outside reference range 858705774 Active 2016 Other specified abnormal findings of blood chemistry; snomeddesc ription: Decreased testostero ne level; Report Immunity to Registry: Yes; Not Available [facility] 4 06:58:29 Testoster one level below reference range 179323267 Active 2016 Decreased testostero ne level; snomeddesc ription: Decreased testostero ne level; Report Immunity to Registry: Yes; Not Available [facility] 4 06:58:33 Tremor 54439622 Active 2017 Other specified forms of tremor; snomeddesc ription: Resting tremor; Report Immunity to Registry: Yes; Not Available [facility] 4 06:58:31 Resting tremor 62674399 Active 2017 Resting tremor; snomeddesc ription: Resting tremor; Report Immunity to Registry: Yes; Not Available [facility] 4 06:58:33 Kidney stone 78850874 Active 2018 Kidney stone; snomeddesc ription: Kidney stone; Report Immunity to Registry: Yes; Calculus of kidney; snomeddesc ription: Kidney stone; Report Immunity to Registry: Yes; Not Available [facility] 4 06:58:28 Gastroeso phageal reflux disease 423980594 Active 2018 Gastroesop hageal reflux disease; snomeddesc ription: Gastroesop hageal reflux disease; Report Immunity to Registry: Yes; Not Available [facility] 4 06:58:29 Gastroeso phageal reflux disease without esophagit is 364397563 Active 2018 Gastro-eso phageal reflux disease without esophagiti s; snomeddesc ription: Gastroesop hageal reflux disease; Report Immunity to Registry: Yes; Not Available [facility] 4 06:58:30 Diaphragm atic hernia 99617006 Active 2019 Diaphragma tic hernia without obstructio n or gangrene; snomeddesc ription: Hiatal hernia; Report Immunity to Registry: Yes; Notes: per PCP note; Not Available [facility] [place] 4 06:58:27 Hiatal hernia 77998065 Active 2019 Hiatal hernia; snomeddesc ription: Hiatal hernia; Report Immunity to Registry: Yes; Notes: per PCP note; Not Available [facility] 4 06:58:32 Aphthous ulcer of mouth 082771324 Active 2019 Aphthous ulcer of mouth; snomeddesc ription: Aphthous ulcer of mouth; Report Immunity to Registry: Yes; Not Available [facility] 4 06:58:27 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 Recurrent oral aphthae; snomeddesc ription: Aphthous ulcer of mouth; Report Immunity to Registry: Yes; Not Available [facility] 4 06:58:28 Erectile dysfuncti on 928983256 Active 2019 Male erectile disorder; Report Immunity to Registry: Yes; Notes: low testostero ne; Not Available [facility] 4 06:58:30 Chronic pain 11193345 Active 2020 Chronic pain; snomeddesc ription: Chronic pain; Report Immunity to Registry: Yes; Notes: Back/shoul erica.all body; Other chronic pain; snomeddesc ription: Chronic pain; Report Immunity to Registry: Yes; Notes: Back/shoul erica.all body; Not Available [facility] 4 06:58:26 Lipodystr ophy 92717714 Active 2022 Siddharth Angel MD [address] [place], [place] [address], [address] , RANDALL ANGEL MD [facility] 3 02:42:40 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..] guy; Not Available Not Available Not Available mupirocin [...] /min 12 /min 98.4 [degF] 28.7 kg/m2 28473.4 7 g 96 % 108/70 mm[Hg] Tiff ANGEL MD [facility] 5 14:57:19 Date Recorded Body height Heart rate Body temperature Body mass index (BMI) Body weight Systolic And Diastolic Provider Name and Address Organization Details Last Updated DateTime 5 177.8 cm 63 /min 98.3 [degF] 28.3 kg/m2 25241.7 g 132/74 mm[Hg] Tiff ANGEL MD [facility] 5 14:11:38 Date Recorded Body height Heart rate Body temperature Body mass index (BMI) Body weight Systolic And Diastolic Provider Name and Address Organization Details Last Updated DateTime 5 177.8 cm 72 /min 97.2 [degF] 27.5 kg/m2 90021.7 4 g 98/63 mm[Hg] Shahla ANGEL MD [facility] 5 14:03:50 Date Recorded Body height Heart rate Respiratory rate Body temperature Body mass index (BMI) Body weight Oxygen saturation Head circumference Systolic And Diastolic Provider Name and Address Organization Details Last Updated DateTime 4 177.8 cm 62 /min 12 /min 98.7 [degF] 28 kg/m2 03060.5 1 g 98 % 93.5 cm 126/80 mm[Hg] Tiff ANGEL MD [facility] 4 15:01:25 Date Recorded Body height Heart rate Body temperature Body mass index (BMI) Body weight Oxygen saturation Systolic And Diastolic Provider Name and Address Organization Details Last Updated DateTime 5 177.8 cm 62 /min 97.5 [degF] 28.7 kg/m2 42255.4 7 g 99 % 130/71 mm[Hg] Shahla ANGEL MD [facility] 5 14:07:57 Social History Question Answer Notes LastModified by Organizat ion Details LastModified Time Tobacco Smoking Status Never Smoker RANDALL SeamanORELL MD [facility] 02/24/2023 15:11:34 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 Yes Night Blindness Information not available 02/24/2023 Are You Deaf Or Do You Have Serious Difficulty Hearing? No [email or web address] Information not available 02/24/2023 What Type Of Diet Are You Following? REGULAR [email or web address] Information not available 02/24/2023 Which Of Your Hands Is Dominant? Right [email or web address] Information not available 02/24/2023 Do You Use Your Seat Belt Or Car Seat Routinely? Yes [email or web address] Information not available 02/24/2023 Do You Have Difficulty Walking Or Climbing Stairs? Yes Back Pain [email or web address] Information not available 02/24/2023 Do You Have Any Dietary Restrictions? No [email or web address] Information not available 02/24/2023 Sex: Male Functional Status Question Answer Note LastModified by Organizat ion Details LastModified Time Do you have transportation difficulties? No [email or web address] Information not available 02/24/2023 Are you able to walk independently without assistance or assistive devices? [email or web address] Information not available 02/24/2023 Do you have difficulty doing errands alone? No [email or web address] Information not available 02/24/2023 Are you able to care for yourself independently? Yes Information not available 02/24/2023 Do you have difficulty dressing, bathing, grooming, or toileting? No [email or web address] Information not available 02/24/2023 Mental Status Question Answer Note LastModified by Organizat ion Details LastModified Time Do you feel stressed (tense, restless, nervous, or anxious, or unable to sleep at night)? [id number] [email or web address] Information not available 02/24/2023 Do you have difficulty concentrating, remembering or making decisions? No [email or web address] Information no t available 02/24/2023 Family History Nothing Reported Notes:Hypertension, Response Property: Yes; , Stroke, Response Property: Yes; Medical History Condition Response Anxiety Disorder Y AIDS/HIV Y Depression Y Immunizations Vaccine Type Date Status Note Provider Nam e and Address Organization Details Recorded Time COVID-19, mRNA, LNP-S, PF, 50 mcg/0.5 mL 03/24/2023 completed Tiff maya [place] - SIDDHARTH ANGEL MD [facility] 11/04/2023 14:39:33 Past Encounters Encounter ID Performer Location Encounter Start Date Encounter Closed Date Diagnosis/Indication Diagnosis SNOMED-CT Code Diagnosis ICD10 Code Diagnosis IMO Codes Diagnosis Note [id number] Siddharth Angel MD Main Office [address] [place] [address] 02/24/2023 14:54:31 03/05/2023 07:47:11 Human immunodeficiency virus infection 79410467 B20 Detected HIV VL. pt denies new meds, missing doses, denies supplement s.resistan ce test ordered.ma varinder need to change regimen if evidence of viral resistance to componenss trict compliance avoid supplement sflu and prevnar 20 prescribed . 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 pt aware this is not weight loss tx.potenti al side effects reviewed such as allergic reactions, edema, myalgia, arthlagia among other. s/c med; needs to rotate. 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 to decrease frequency and severity of flareups. [id number] Siddharth Angel MD Main Office [address] [place] [address] 05/27/2023 11:58:48 05/27/2023 13:14:52 Human immunodeficiency virus infection 69635969 B20 on Biktarvy 1 tab po qd.clinicl trial options reviewed with monoclonal AB; consent providedst rict compliance reviewed.a void supplement spt aware of PreP availabili tycondom use [id number] Siddharth Angel MD Main Office [address] [place] [address] 08/25/2023 12:03:16 08/25/2023 13:23:31 Human immunodeficiency virus infection 41658108 B20 on Biktarvy 1 tab po qd.strict compliance reviewed.a void supplement s or keep them 6 hrs apart; ot take w Biktarvy w foodpt aware of PreP availabili ty. U=U reviewed.c ondom use for STI prevention Candidiasis of mouth 797 06217 B37.0 fluconazol e prescribed for thrush. has tolerated well in the past.oral bacterial swab/funga l swab obtained.c all if recurrence in setting of recent dental extraction Methicilli n resistant Staphylococcus aureus infection 517590555 A49.02 on qd suppressio n tx PRN. to decrease frequency and severity of flareups. 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 [id number] Siddharth Angel MD Main Office [address] [place] [address] 09/15/2023 14:59:47 09/15/2023 15:20:13 Human immunodeficiency virus infection 78584985 B20 on Biktarvy 1 tab po qd.strict compliance reviewed.a void supplement s or keep them 6 hrs apart; ot take w Biktarvy w foodpt aware of PreP availabili ty. 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 first dose [...] options if egrifta does not get approved. [id number] Siddharth Angel MD Main Office [address] [place] [address] 11/04/2023 14:13:14 11/04/2023 15:02:39 Human immunodeficiency virus infection 47812403 B20 on Biktarvy 1 tab po qd.strict compliance reviewed.a void supplement s or keep them 6 hrs apart; ot take w Biktarvy w foodpt aware of PreP availabili ty. 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 correct use rveiewed. [id number] Siddharth Angel MD Main Office [address] [place] [address] 02/10/2024 15:03:59 02/10/2024 15:55:05 Human immunodeficiency virus infection 68353155 B20 on Biktarvy 1 tab po qd.strict compliance reviewed.a void supplement s or keep them 6 hrs apart; ot take w Biktarvy w foodpt aware of PreP availabili ty. U=U reviewed.c ondom use for STI prevention aware of DoxyPEP Folliculitis 14806737 L7 3.9 on topical antibiotic PRNdoxycyc line suppressio n tx Anxiety 37792380 F41.9 Hydroxyzin e 25 mg po qhs; has tolerated well in the past. correct use reviewed Candidiasi s of mouth and esophagus 768386063 B37.81 no allergies to azoles.flu conazole qd x 14 dayscall if recurrent or intoleranc e [id number] Siddharth Angel MD Main Office [address] [place] [address] 05/13/2024 15:00:02 05/13/2024 15:18:57 Human immunodeficiency virus infection 59140259 B20 on Biktarvy 1 tab po qd.strict compliance reviewed.a void supplement s or keep them 6 hrs apart; ot take w Biktarvy w foodpt aware of PreP availabili ty. U=U reviewed.c ondom use for STI prevention COVID19, flu an dRSV vaccines recommende daware of DoxyPEP Folliculitis 46722478 L7 3.9 on topical mupirocin/ antibiotic PRNdoxycyc line suppressio n txavoid touching scabs Anxiety 62457411 F41.9 increase dose of Hydroxyzin e from 25 mg to 50mg po qhs; has tolerated well in the past. 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 pt aware this is not weight loss tx. [id number] Siddharth Angel MD Main Office [address] [place] [address], [place] [address] 08/22/2024 14:25:45 08/22/2024 15:20:57 Human immunodeficiency virus infection 57118350 B20 on Biktarvy 1 tab po qd.strict compliance reviewed to prevent VF, resistance and transmissi onclinical trial options reviewedla bs orderedavo id supplement s or keep them 6-8 hrs apart; or take w Biktarvy w foodpt aware of PreP and DOXYPEP availabili ty. U=U reviewed.c ondom use for STI prevention RSV and prevanr 20 recommende d Lipodystrophy 68358398 E 88.1 d/c Egrifta pt feels it is not working; and no further results. needs a break/inje ction fatigue; he is aware that abd fat could return while off Egrifta. will observe. Obesity 614660588 E66.9 zepbound to be ordered once labs reviewedpt has had chronic elevated lipase /amylase in the past ; no clinical pancreatit is hx; has seen GI and workup has been negative.i instructed him to discuss safety og GLP1 with GI in setting of lab finding.wi ll order CMP, lipase and other testing as needed [id number] Siddharth Angel MD Main Office [address] [place] [address] 11/22/2024 13:46:09 11/22/2024 14:38:21 Human immunodeficiency virus infection 33994885 B20 on Biktarvy 1 tab po qd.strict compliance reviewed to prevent VF, resistance and transmissi onclinical trial options reviewedla bs orderedavo id supplement s or keep them 6-8 hrs apart; or take w Biktarvy w foodpt aware of PreP and DOXYPEP availabili ty. U=U reviewed.c ondom use for STI prevention Lipodystrophy 22469500 E 88.1 d/c Egrifta pt feels it is not working; and no further results. needs a break/inje ction fatigue; he is aware that abd fat could return while off Egrifta. will observe. [id number] Siddharth Angel MD Main Office [address] [place] [address] 02/22/2025 13:56:30 02/22/2025 14:46:09 Human immunodeficiency virus infection 22992945 B20 on Biktarvy 1 tab po qd.strict compliance reviewed to prevent VF, resistance and transmissi onclinical trial options reviewedla bs ordered; he took order with him.avoid supplement s or keep them 6-8 hrs apart; or take w Biktarvy w foodpt aware of PreP and DOXYPEP availabili ty. U=U reviewed.c ondom use for STI prevention Lipodystrophy 22048855 E 88.1 d/c Egrifta pt feels it is not working; and no further results. needs a break/inje ction fatigue; he is aware that abd fat could return while off Egrifta. will observe.GL P1's reviewed in the past; has not prescribed due to baseline asymptomat ic elevated lipase. Anxiety 73077303 F41.9 73747 increase dose of Hydroxyzin e 50mg po qhs; has tolerated well in the past. correct use reviewedne eds refill of the 50mg tablets Methicilli n resistant Staphylococcus aureus infection 659021176 A49.02 655881 on qd Doxycyclin e suppressio n tx PRN. to decrease frequency and severity of flareups.m upirocin prescribed PRN [id number] Siddharth Angel MD Main Office [address] [place] [address] 05/24/2025 14:00:15 05/24/2025 15:49:47 Human immunodeficiency virus infection 36879231 B20 on Biktarvy 1 tab po qd.strict [...] be checked- will refer if elevated Anxiety 24989737 F41.9 48234 prescribe Hydroxyzin e 50mg po BID PRN for insomnia/a nxiety has tolerated well in the past. correct use reviewedst ates that the medication is helpful for the anxiety Methicilli n resistant Staphylococcus aureus infection 417345853 A49.02 750240 on qd Doxycyclin e suppressio n tx PRN. to decrease frequency and severity of flareups.m upirocin prescribed PRNsmall excoriatio ns on forearms and scalp Onychomycosis 237241927 B35.1 218746 pt has been treated for nail infection [...] of finger Chronic low back pain 27 3616699 M54.41 G89.29 39933152 pt had back surgery in Jan on [...] at surgical site- has been present since Aprhas followed up with orthopedic surgeon , scheduled [...] Member ID Gunn Member ID Guarantor Name 05/21/2025 1 [facility]BET [facility] ([facility]) [facility] Roni Willson [id number] Roni Willson 05/21/2025 2 [facility] Roni Willson [id number] Roni Mckeoncourtney Notes Date Note Type Note Provider Name and Address Organization Details Recorded Time 05/13/2024 text/html ROS as noted in the HPI f/u HIVon Biktarvy 1 tab po qd.compliant w Biktarvymed list reviewed.labs reviewed with [facility]01/2024 HIV VL nondetected; AST/SUSAN wnl; GC/chlamydia neg; HCV neg; treponemal ab neg; eGFR= 67 KX2=6432/2023 722; HIV VL nondetected; 3GFR>70; ALt/AST wnl;08/2023 BC7=267; aslt/ast wnl; eGFR>60; HCV neg; GC negative; no wtzqvkfi17/1/23 HIV VL=43; no HCV. no syphilis; ALT/ASt [...] on doxycycline for suppression tx. helping. Siddharth Angel MD [address] [place] [address], [phone], [facility] - SIDDHARTH ANGEL MD [facility] 05/13/2024 16:22:23 08/22/2024 text/html ROS as noted in the HPI f/u HIVon Biktarvy 1 tab po qd.compliant w Biktarvyhappy w med.med list reviewed.labs reviewed with urmila female partner. aware of PreP and DOXYPEPnot [...] HCV neg; treponemal ab neg; eGFR= 67 TY0=2218/2023 722; HIV VL nondetected; 3GFR>70; ALt/AST wnl;08/2023 AJ5=347; aslt/ast wnl; eGFR>60; HCV neg; GC negative; no pktvaikd15/1/23 HIV VL=43; no HCV. no syphilis; ALT/ASt wbl; eGFR-75; no GC/no chlamydia08/2022 HIV VL nondetcetd; ALT/AST wnl; eGFR>60; Siddharth Angel MD [address] [place] [address], [phone], [facility] - SIDDHARTH ANGEL MD [facility] 08/28/2024 11:41:13 11/22/2024 text/html ROS as [...] HCV neg; treponemal ab neg; eGFR= 67 AN1=3146/2023 722; HIV VL nondetected; 3GFR>70; ALt/AST wnl;08/2023 OO6=803; aslt/ast wnl; eGFR>60; HCV neg; GC negative; no jhnejyda11/1/23 HIV VL=43; no HCV. no syphilis; ALT/ASt wbl; eGFR-75; no GC/no chlamydia08/2022 HIV VL nondetcetd; ALT/AST wnl; eGFR>60; Siddharth Angel MD [address] [place] [address], [phone], [facility] - SIDDHARTH ANGEL [facility] 11/23/2024 12:17:08 02/22/2025 text/html ROS as [...] HCV neg; treponemal ab neg; eGFR= 67 VW7=5778/2023 722; HIV VL nondetected; 3GFR>70; ALt/AST wnl;08/2023 UL6=339; aslt/ast wnl; eGFR>60; HCV neg; GC negative; no lsbkoyhn44/1/23 HIV VL=43; no HCV. no syphilis; ALT/ASt wbl; eGFR-75; no GC/no chlamydia08/2022 HIV VL nondetcetd; ALT/AST wnl; eGFR>60; Siddharth Angel MD [address] [place] [address], [phone], [facility] - SIDDHARTH ANGEL [facility] 02/22/2025 16:17:56 05/24/2025 text/html ROS as noted in the [...] HCV neg; treponemal ab neg; eGFR= 67 QY7=6382/2023 722; HIV VL nondetected; 3GFR>70; ALt/AST wnl;08/2023 PT0=833; aslt/ast wnl; eGFR>60; HCV neg; GC negative; no cnmilumg40/1/23 HIV VL=43; no HCV. no syphilis; ALT/ASt wbl; eGFR-75; no GC/no chlamydia08/2022 HIV VL nondetcetd; ALT/AST wnl; eGFR>60; Siddharth Angel MD [address] [place] [address], [place], [address], [place] - SIDDHARTH ANGEL MD [facility] 05/24/2025 16:43:15
--- OUTSIDE RECORDS SUMMARY | 2025-06-05 10:23 | XMS_ITS | Clinical Summary ---
Author Organization [facility], Address [address] [address] Phone Care Team Providers Care Inspector Toys Name Role Phone Gregg Todd MD Primary Care Provider [phone] Allergies No known active allergies Medications traMADol [...] Mr. Willson is being followed at [facility] by Dr. Carreno where he [...] deficiency 03/06/2015 Chronic sinusitis 07/01/2013 Gout 10/08/2011 Social History Tobacco Use Types Packs/Day Years [...] 08/15/2016 Influenza Vaccine (#1) 2025 04/22/2021 Insurance [facility] Member Subscriber Plan / Payer (Ef fective 2023-Present) Name:Roni Willson Relation to Subscriber:Self Name:Roni Willson Payer ID:[id number] (NAIC) Group ID:[id number] Type:Not on file Address: [address] [id number] Medicaid [place] Care Teams Inspector Toys Relationship Specialty Start Date End Date Gregg Todd MD [address] [place] [address] PCP - General Internal Medicine 01/11/25
--- OUTSIDE RECORDS SUMMARY | 2025-06-05 10:23 | XMS_ITS | Clinical Summary ---
Author Organization [facility] Prior to 11/12/[address] [place] [address] Care Team Providers Care Elevator Constructor Hydraulic Name Role Phone Gregg Todd MD Primary [...] age to complete this topic Care Teams Elevator Constructor Hydraulic Relationship Specialty Start Date End Date Gregg Todd MD PCP - General Internal Medicine 06/29/23
--- OUTSIDE RECORDS SUMMARY | 2025-06-05 10:23 | XMS_ITS | Encounter Summary ---
Author Organization [facility], Address [address] [place] [address] Phone Care Team Providers Care [employer] Director Name Role Phone Gregg Todd MD Primary Care Provider [phone] Encounter Details Date Type Department Care Team (Late st Contact Info) Description 01/16/2025 Orders Only [facility] [address] [place] [phone] Melissa Portillo [address] [place] [phone] Social History Tobacco Use Types Packs/Day Years [...] on filedocumented in this encounter Care Teams School [employer] Director Relationship Specialty Start Date End Date Gregg Todd MD [address] [place] [address] PCP - General Internal Medicine 01/11/25 documented as of this encounter
--- OUTSIDE RECORDS SUMMARY | 2025-06-05 10:24 | XMS_ITS | Clinical Summary ---
Author Organization LL [facility] Address [address] [place] [address] Phone Care Team Providers Care Mill Labor Supervisor Name Role Phone Gregg Todd MD Primary Care Provider [phone] Allergies No known active allergies Medications bictegravir-emtr [...] NEEDED FOR MUSCLE SPASMS 02/03/20 24 Active albuterol HFA (PROAIR HFA ; PROVENTIL HFA ; VENTOLIN HFA) 90 mcg/actuation inhalerIndicatio ns:Chronic bronchitis, unspecified chronic bronchitis type (CMS/HCC V24, CMS/HCC V28) Inhale 2 puffs by mouth every 6 (six) hours if needed for wheezing. 1 each 08/30/19 25 026 Active fluticasone propionate (FLONASE) 50 mcg/actuation nasal spray SPRAY 1 SPRAY INTO EACH NOSTRIL TWICE A DAY 48 mL 1 01/20/20 25 Active tamsulosin (FLOMAX) 0.4 mg 24 hr capsule TAKE 1 CAPSULE BY MOUTH 30 MINUTES AFTER SAME MEAL EVERY DAY. 90 capsule 1 01/20/20 25 Active aspirin 81 mg chewable tablet [...] BEDTIME 90 tablet 1 04/25/20 25 Active omeprazole (PriLOSEC) [address] capsule TAKE 1 CAPSULE BY MOUTH EVERY DAY 90 capsule 1 05/20/20 25 Active terbinafine (LamISIL) 250 mg tablet TAKE 1 TABLET BY MOUTH EVERY DAY 30 tablet 2 05/22/20 25 Active budesonide-formo teroL (SYMBICORT) 160-4.5 mcg/actuation inhaler Inhale 2 puffs by mouth 2 (two) times a day. Rinse mouth with water after use to reduce aftertaste and incidence of candidiasis. Do not swallow. 1 each 05/31/20 25 026 Active fluticasone-salm eterol (Wixela Inhub) 250-50 mcg/dose diskus inhaler Inhale 1 puff by mouth 2 (two) times a day. Rinse mouth with water after use to reduce aftertaste and incidence of candidiasis. Do not swallow. 1 each 05/31/20 25 026 Active fluticasone-salm eterol (Advair Diskus) 250-50 mcg/dose diskus inhaler Inhale 1 puff by mouth 2 (two) times a day. Rinse mouth with water after use to reduce aftertaste and incidence of candidiasis. Do not swallow. 1 each 05/31/20 25 026 Active fluticasone furoate (Arnuity Ellipta) 100 mcg/actuation blister with device inhaler Inhale 1 puff by mouth 1 (one) time each day. 1 each 06/30/19 25 025 Discontinued beclomethasone dipropionate (Qvar RediHaler) 80 mcg/actuation HFA aerosol breath activated inhaler Inhale 2 puffs by mouth 2 (two) times a day. 3 each 3 07/01/19 25 025 Discontinued omeprazole (PriLOSEC) [address] capsule TAKE 1 CAPSULE BY MOUTH EVERY DAY 90 capsule 1 11/29/19 25 025 Discontinued terbinafine (LamISIL) 250 mg tablet TAKE 1 TABLET BY MOUTH EVERY DAY 30 tablet 2 02/09/20 025 Discontinued Active Problems Problem Noted Date [...] Plan: Mr. Willson is being followed at [facility] by Dr. Carreno where he [...] Encounters Date Type Department Care Team Description 05/31/2025 2:35 PM EST Lab Draw Station - 175 [facility] 175 [facility] [address] [place] [phone] Human immunodeficiency virus (HIV) disease (CMS/HCC V24, [facility] V28) (Primary Dx); Benign prostate hyperplasia 05/31/2025 2:15 PM EST Office Visit Pulmonology - [place] 175 [facility] [address] [place] [phone] Felicia Sparrow MD Moderate persistent asthma, unspecified whether complicated (Primary Dx); Lung nodules; Elevated diaphragm; Restrictive lung disease; Dyspnea, unspecified type 05/16/2025 Telephone Internal Medicine - [address] [place] [phone] Gregg Todd MD 05/04/2025 Telephone Internal Medicine - [place] 175 [facility] [address] [place] [phone] Kalli Andrade MA 03/30/2025 8:15 AM EDT Office Visit Internal Medicine - [address] [place] [address] Gregg Todd MD Dizziness (Primary Dx); Hypercholesterolemia; Current mild episode of major depressive disorder, unspecified whether recurrent ([facility] V24); Mild intermittent asthma without complication 03/06/2025 Telephone [facility] - [facility] [address] [facility] [address] [place] [address] Diann Sousa NP from Last 3 Months Immunizations Immunization Administration Dates Next Due DTaP (Infanrix) 6wks to less than 7yo 07/29/2012 Hepatitis A Adult (Havrix; V aqta) 19yo and older 08/10/2015 Hepatitis B (Uifympm-M-Cldkh , Recombivax HB-Adult) 19yo and older 02/20/2017,09/12/2016,08/15/2016 [...] lumbar disc HIV (human immunodeficiency virus infection) ([facility] V24, [facility] V28) 01/04/2019 DX:HIV (human im munodeficiency virus infection) ([facility]) Hypertension 01/04/2019 DX:Hypertension Spinal stenosis, lumbar 02/02/2019 [...] Hypertension DX:Hypertension HIV (human immunodeficiency virus infection) ([facility]/HCC V24, CMS/HCC V28) DX:HIV (human im munodeficiency virus infection) ([facility]) Hemorrhoid Anemia Family History Medical History Relation [...] your loved ones. For example, child care teacher or elderly care for an older [...] Orientation Straight 09/27/2024 9: 37 PM EDT Last Filed Vital Signs Vital Sign Reading Time Taken Comments Blood Pressure 137/83 05/31/2025 2:05 PM EST Pulse 62 05/31/2025 2:05 PM EST Temperature 35.6 C (96.1 F) 03/30/2025 8:31 AM EDT Respiratory Rate 18 12/08/2024 9:19 AM EDT Oxygen Saturation 100% 05/31/2025 2:05 PM EST Inhaled Oxygen Concentration - - Weight 91.2 kg (201 lb) 05/31/2025 2:05 PM EST Height 180.3 cm (5' 11 ) 03/30/2025 8:31 AM EDT Body Mass Index 28.03 03/30/2025 8:31 AM EDT Plan of Treatment Upcoming Encounters Date Type Department Care Team (Late st Contact Info) Description 09/28/2025 8:15 AM EDT Office Visit Internal Medicine - [place] [address] [phone] Gregg Todd MD [address] [address] 11/30/2025 11:00 AM EDT Office Visit Pulmonology - [place] [address] [phone] Felicia Sparrow MD [address] [place] [phone] Health Maintenance Due Date Last Done Comments Drug Screen 1965 Naloxone Order 1964 Opioid Substance Agreement 1964 Pain Assessment 1965 MMR Vaccines (1 of 2 - Risk [...] 09/27/2025 09/27/2024 Hypertension/CHF/CAD Annual BMP Blood Test 05/31/2026 05/31/2025, 03/06/2025, 09/21/2024, Additional history exists DTaP,Tdap,and Td Vaccines (3 [...] Diagnosis Comments CBC WITH AUTO DIFFERENTIAL Routine 05/31/2025 2:43 PM EST Human immunodeficiency virus (HIV) disease ([facility] V24, [facility] V28) CBC AND DIFFERENTIAL Routine 05/31/2025 2:43 PM EST Human immunodeficiency virus (HIV) disease ([facility] V24, [facility] V28) TREPONEMA PALLIDUM ANTIBODY WITH REFLEX TO [...] virus (HIV) disease (CMS/HCC V24, CMS/HCC V28) PSA TOTAL, FREE AND COMPLEXED, DIAGNOSTIC Routine 05/31/2025 2:43 PM EST Human immunodeficiency virus (HIV) disease (CMS/HCC V24, CMS/HCC V28) Benign prostate hyperplasia HIV 1 MOLECULAR STUDY QUANTITATIVE Routine 05/31/2025 2:43 PM EST Human immunodeficiency virus (HIV) disease (CMS/HCC V24, CMS/HCC V28) CBC WITH AUTO DIFFERENTIAL Routine 03/06/2025 10:08 [...] V24, CMS/HCC V28) LYMPHOCYTE T-CELL PANEL Routine 03/06/20 10:08 AM EDT Human immunodeficiency virus (HIV) [...] Recently Relevant to Health Maintenance Results * (ABNORMAL) PSA total, free and complexed (05/31/2025 2:43 PM EST) PSA 1.19 0.00 - 4.00 ng/mL 05/31/2025 6:37 PM [facility] PSA, Complexed 1.09 0.00 - 3.00 ng/mL 05/31/2025 6:37 PM [facility] PSA, Free 0.1 ng/mL 05/31/2025 6:37 PM [facility] PSA, Free Pct 8.4(L) >25.0 % 05/31/2025 6:37 PM [facility] Comment:Free PSA is a calcul ated value. The diagnostic usefulness of % free PSA has not been established in patients with Total PSA below 2.6 or above 10 ng/mL. Blood Venous blood specimen / Unknown Venipuncture / Unknown 05/31/2025 2:43 PM EST 05/31/2025 2:43 PM EST Narrative [facility] - 05/31/2025 6:37 PM EST The Siem[employer] IM Chemiluminescent Immunoassay is used. Results obtained with different assay methods or kits cannot be used interchangeably. Results cannot be interpreted as absolute evidence of the presence or absence of malignant disease. Юлия Angel MD LAB BLOOD ORDERABLES Una l Result Performing Organization Address City/[facility]/ZIP Co de Phone Number [facility] [address] [place] [address], [place] [phone] * Treponema pallidum antibody with reflex to RPR and particle agglutination (05/31/2025 2:43 PM EST) Only the most recent of2 resultswithin the time period is included. Pathologist [facility] T. Pallidum Antibodies Negative Negative 05/31/2025 6:54 PM EST [facility] Blood Venous blood specimen / Unknown Venipuncture / Unknown 05/31/2025 2:43 PM EST 05/31/2025 2:43 PM EST Юлия Angel MD LAB BLOOD ORDERABLES Una l Result Performing Organization Address City/[facility]/ZIP Co de Phone Number [facility] [address] [place] [address], [place] [phone] * (ABNORMAL) CBC auto differential (05/31/2025 2:43 PM EST) Only the most recent of2 resultswithin the time period is included. Pathologist [facility] WBC 5.2 4.8 - 10.8 K/[facility] LAB HEMETOLOGY METHOD 05/31/2025 6:20 PM EST [facility] RBC 4.80 4.50 - 5.50 M/[facility] LAB HEMETOLOGY METHOD 05/31/2025 6:20 PM [facility] Hemoglobin 14.1 13.5 - 17.5 g/dL LAB HEMETOLOGY METHOD 05/31/2025 6:20 PM [facility] Hematocrit 43.2 42.0 - 54.0 % LAB HEMETOLOGY METHOD 05/31/2025 6:20 PM [facility] MCV 90.4 79.0 - 98.0 FL LAB HEMETOLOGY METHOD 05/31/2025 6:20 PM [facility] MCH 29.5 27.0 - 32.0 pcg LAB HEMETOLOGY METHOD 05/31/2025 6:20 PM [facility] MCHC 32.6 32.0 - 37.0 g/dL LAB HEMETOLOGY METHOD 05/31/2025 6:20 PM [facility] RDW 13.3 11.0 - 15.0 % LAB HEMETOLOGY METHOD 05/31/2025 6:20 PM [facility] Platelets 224 130 - 400 K/mcL LAB HEMETOLOGY METHOD 05/31/2025 6:20 PM [facility] MPV 11.3(H) 7.0 - 11.0 FL LAB HEMETOLOGY METHOD 05/31/2025 6:20 PM [facility] NRBC 0.0 <1.0 % LAB HEMETOLOGY METHOD 05/31/2025 6:20 PM [facility] NRBC Absolute 0.00 <0.10 K/mcL LAB HEMETOLOGY METHOD 05/31/2025 6:20 PM [facility] Neutrophils Relative 57.4 % LAB HEMETOLOGY METHOD 05/31/2025 6:20 PM [facility] Lymphocytes Relative 28.5 % LAB HEMETOLOGY METHOD 05/31/2025 6:20 PM [facility] Monocytes Relative 10.2 % LAB HEMETOLOGY METHOD 05/31/2025 6:20 PM EST [facility] Eosinophils Relative 2.7 % LAB HEMETOLOGY METHOD 05/31/2025 6:20 PM [facility] Basophils Relative 0.6 % LAB HEMETOLOGY METHOD 05/31/2025 6:20 PM [facility] Immature Granulocytes Relative 0.6 % LAB HEMETOLOGY METHOD 05/31/2025 6:20 PM EST [facility] Neutrophils Absolute 2.98 1.50 - 7.00 K/mcL LAB HEMETOLOGY METHOD 05/31/2025 6:20 PM EST [facility] Lymphocytes Absolute 1.48 1.00 - 5.00 K/mcL LAB HEMETOLOGY METHOD 05/31/2025 6:20 PM [facility] Monocytes Absolute 0.53 0.20 - 1.00 K/mcL LAB HEMETOLOGY METHOD 05/31/2025 6:20 PM EST [facility] Eosinophils Absolute 0.14 0.00 - 0.50 K/mcL LAB HEMETOLOGY METHOD 05/31/2025 6:20 PM EST [facility] Basophils Absolute 0.03 0.00 - 0.20 K/mcL LAB HEMETOLOGY METHOD 05/31/2025 6:20 PM [facility] Immature Granulocytes Absolute 0.03 0.00 - 0.03 K/mcL LAB HEMETOLOGY METHOD 05/31/2025 6:20 PM EST [facility] Blood Venous blood specimen / Unknown Venipuncture / Unknown 05/31/2025 2:43 PM EST 05/31/2025 2:43 PM EST us Юлия Angel MD LAB BLOOD ORDERABLES Una l Result [facility] [address] [place] [address], * HIV 1 molecular study quantitative (05/31/2025 2:43 PM EST) Only the most recent of2 resultswithin the time period is included. [facility] HIV-1 RNA Interpretation Not Detected Not Detected LAB MOLECULAR DIAGNOSTICS METHOD 06/01/2025 12:22 PM EST [facility] Comment:HIV RNA not detected , unable to report quantitative results. Blood Venous blood specimen / Unknown Venipuncture / Unknown 05/31/2025 2:43 PM EST 05/31/2025 2:43 PM EST Юлия Angel MD LAB BLOOD ORDERABLES Una l Result Performing Organization Address [facility] de Phone Number [facility] [address] [place] [address], [place] [phone] * Creatinine (05/31/2025 2:43 PM EST) [facility] Creatinine 1.14 0.70 - 1.30 mg/dL 05/31/2025 6:38 PM EST [facility] eGFR 73 >=60 mL/min/1. 73m2 05/31/2025 6:38 PM EST [facility] Comment:Calculation based on the Chronic Kidney Disease Epidemiology Collaboration (CKD-EPI) equation refit without adjustment for race. Blood Venous blood specimen / Unknown Venipuncture / Unknown 05/31/2025 2:43 PM EST 05/31/2025 2:43 PM EST Юлия Angel MD LAB BLOOD ORDERABLES Una l Result Performing Organization Address [facility]/ZIP Co de Phone Number [facility] [address] [place] [address], [place] [phone] * Alanine aminotransferase (05/31/2025 2:43 PM EST) [facility] ALT (SGPT) 20 10 - 60 unit/L 05/31/2025 6:38 PM EST [facility] Blood Venous blood specimen / Unknown Venipuncture / Unknown 05/31/2025 2:43 PM EST 05/31/2025 2:43 PM EST Юлия Angel MD LAB BLOOD ORDERABLES Una l Result Performing Organization Address City/[facility]/ZIP Co de Phone Number [facility] [address] [place] [address], [place] [phone] * Aspartate aminotransferase (05/31/2025 2:43 PM EST) AST (SGOT) 17 10 - 42 unit/L 05/31/2025 6:39 PM EST [facility] Blood Venous blood specimen / Unknown Venipuncture / Unknown 05/31/2025 2:43 PM EST 05/31/2025 2:43 PM EST Юлия Angel MD LAB BLOOD ORDERABLES Una l Result Performing Organization Address City/[facility]/ZIP Co de Phone Number [facility] [address] [place] [address], [place] [phone] * (ABNORMAL) Lipid panel with reflex to direct LDL (03/06/2025 10:08 AM EDT) Cholesterol 187 0 - 200 mg/dL LAB CHEMISTRY METHOD 03/06/2025 3:32 PM EDT [facility] Triglycerides 188(H) 0 - 150 mg/dL LAB CHEMISTRY METHOD 03/06/2025 3:32 PM EDT [facility] HDL 53 >=40 mg/dL LAB CHEMISTRY METHOD 03/06/2025 3:32 PM EDT [facility] LDL Calculated 96 0 - 100 mg/dL LAB CHEMISTRY METHOD 03/06/2025 3:32 PM EDT [facility] Comment:Estimated LDL Calcul ated using equation: Total cholesterol - HDL cholesterol - (Triglycerides/5) VLDL Cholesterol Yovany 37.6 mg/dL LAB CHEMISTRY METHOD 03/06/2025 3:32 PM EDT [facility] Non HDL Chol. (LDL+VLDL) 134 <145 mg/dL LAB CHEMISTRY METHOD 03/06/2025 3:32 PM EDT [facility] Chol/HDL Ratio 3.5 0.0 - 4.4 LAB CHEMISTRY METHOD 03/06/2025 3:32 PM EDT [facility] Blood Venous blood specimen / Unknown Venipuncture / Unknown 03/06/2025 10:08 AM EDT 03/06/2025 10:08 AM EDT Gregg Todd MD LAB BLOOD ORDERABLES Final Resul t [facility] [address] [place] [address], [place] [phone] * Lymphocyte T-cell panel (03/06/2025 10:08 AM EDT) CD4 680 426 - 1,776 cells/mcL 03/10/2025 9:23 AM EDT [facility] CD8 314 161 - 838 cells/mcL 03/10/2025 9:23 AM EDT [facility] CD4/CD8 Ratio 2.17 0.90 - 4.90 03/10/2025 9:23 AM EDT [facility] CD4 % 48 33 - 64 % 03/10/2025 9:23 AM EDT [facility] CD8 % 22 10 - 39 % 03/10/2025 9:23 AM EDT [facility] Blood Venous blood specimen / Unknown Venipuncture / Unknown 03/06/2025 10:08 AM EDT 03/06/2025 10:08 AM EDT Юлия Angel MD LAB MOLECULAR DIAGNOSTICS ORDERABLES Final Result [facility] [address] [place] [address], [place] [phone] * Thyroid stimulating hormone (03/06/2025 10:08 AM EDT) TSH 2.33 0.40 - 4.00 mcIU/mL LAB CHEMISTRY METHOD 03/06/2025 4:19 PM EDT [facility] Blood Venous blood specimen / Unknown Venipuncture / Unknown 03/06/2025 10:08 AM EDT 03/06/2025 10:08 AM EDT Gregg Todd MD LAB BLOOD ORDERABLES Final Resul t [facility] [address] [place] [address], [place] [phone] * (ABNORMAL) Comprehensive metabolic panel (03/06/2025 10:08 AM EDT) Sodium 138 133 - 145 mmol/L LAB CHEMISTRY METHOD 03/06/2025 3:34 PM [facility] Potassium 5.2 3.5 - 5.5 mmol/L LAB CHEMISTRY METHOD 03/06/2025 3:34 PM [facility] Chloride 107 96 - 110 mmol/L LAB CHEMISTRY METHOD 03/06/2025 3:34 PM [facility] CO2 27 21 - 32 mmol/L LAB CHEMISTRY METHOD 03/06/2025 3:34 PM [facility] Anion Gap 4 3 - 11 LAB CHEMISTRY METHOD 03/06/2025 3:34 PM [facility] Glucose 93 70 - 100 mg/dL LAB CHEMISTRY METHOD 03/06/2025 3:34 PM [facility] BUN 19 5 - 25 mg/dL LAB CHEMISTRY METHOD 03/06/2025 3:34 PM [facility] Creatinine 1.08 0.70 - 1.30 mg/dL LAB CHEMISTRY METHOD 03/06/2025 3:34 PM [facility] eGFR 78 >=60 mL/min/1. 73m2 LAB CHEMISTRY METHOD 03/06/2025 3:34 PM [facility] Comment:Calculation based on the Chronic Kidney Disease Epidemiology Collaboration (CKD-EPI) equation refit without adjustment for race. BUN/Creatinine Ratio 17.6 LAB CHEMISTRY METHOD 03/06/2025 3:34 PM [facility] Calcium 9.7 8.5 - 10.5 mg/dL LAB CHEMISTRY METHOD 03/06/2025 3:34 PM [facility] AST (SGOT) 18 10 - 42 unit/L LAB CHEMISTRY METHOD 03/06/2025 3:34 PM [facility] ALT (SGPT) 25 10 - 60 unit/L LAB CHEMISTRY METHOD 03/06/2025 3:34 PM [facility] Alkaline Phosphatase 164(H) 42 - 121 unit/L LAB CHEMISTRY METHOD 03/06/2025 3:34 PM [facility] Total Protein 7.5 6.0 - 8.0 g/dL LAB CHEMISTRY METHOD 03/06/2025 3:34 PM [facility] Albumin 4.3 3.2 - 5.0 g/dL LAB CHEMISTRY METHOD 03/06/2025 3:34 PM [facility] Total Bilirubin 0.5 0.0 - 1.4 mg/dL LAB CHEMISTRY METHOD 03/06/2025 3:34 PM [facility] Blood Venous blood specimen / Unknown Venipuncture / Unknown 03/06/2025 10:08 AM EDT 03/06/2025 10:08 AM EDT us Gregg Todd MD LAB BLOOD ORDERABLES Final Resul t [facility] [address] [place] [address], * COLONOSCOPY Anesthesia - MAC; [facility] ENDOSCOPY (12/08/2024 8:58 AM EDT) Anatomical Region Laterality Modality Other 12/08/2024 8:30 AM EDT Impressions 12/08/2024 8:59 AM EDT - Internal hemorrhoids. - Diverticulosis in the sigmoid colon. - No specimens collected. Recommendation: - Use fiber, for example Citrucel, Fibercon, Konsyl or Metamucil. - Repeat colonoscopy in 10 years for screening purposes. Narrative 12/08/2024 8:59 AM EDT [facility] GI Patient Name: Licha Willson Procedure [...] or abscess without bleeding CPT copyright 2020 [employer]. All rights reserved. The codes documented in this report are preliminary and upon program assistant review may be revised to meet current compliance requirements. Alok Mccormack MD 12/08/2024 8:59:00 AM This report has been signed electronically.Alok Mccormack MD Number of Addenda: 0 Note Initiated On: 12/08/2024 8:30 AM Scope In: Scope Out: Endoscopy Department at [facility] - [address] [place] [phone] Procedure Note Alok Mccormack MD - 12/08/2024 [facility] Patient Name: Licha Willson Procedure [...] or abscess without bleeding CPT copyright 2020 [employer]. All rights reserved. The codes documented in this report are preliminary and upon program assistant reviewmay be revised to meet current compliance requirements. Alok Mccormack MD 12/08/2024 8:59:00 AM This report has been signed electronically.Alok Mccormack MD Number of Addenda: 0 Note Initiated On: 12/08/2024 8:30 AM Scope In: Scope Out: Endoscopy Department at [facility] - [address] [place] [phone] IMPRESSION: - Internal hemorrhoids. - Diverticulosis in [...] LAB CHEMISTRY METHOD 08/23/2024 12:18 PM EDT [facility] Hepatitis A Antibody IgM Negative Negative LAB CHEMISTRY METHOD 08/23/2024 12:18 PM EDT [facility] Hep B Core IgM Negative Negative LAB CHEMISTRY METHOD 08/23/2024 12:18 PM EDT [facility] Hepatitis C Antibody Negative Negative LAB CHEMISTRY METHOD 08/23/2024 12:18 PM EDT [facility] Blood Venous blood specimen / Unknown Venipuncture / Unknown 08/23/2024 9:33 AM EDT 08/23/2024 10:35 AM EDT us Alok Mccormack MD LAB BLOOD ORDERABLES Final Resul t [facility] [address] [place] [address], from Last 3 Months or Most Recently Relevant to Health Maintenance Insurance [employer] [place] Care Teams Mill Labor Supervisor Relationship Specialty Start Date End Date Gregg Todd MD 175 [facility] [address] [place] [address] PCP - General Internal Medicine 04/17/21
--- OUTSIDE RECORDS SUMMARY | 2025-06-05 10:24 | XMS_ITS | Encounter Summary ---
Author Organization [facility] Address [address] [place] [address] Care Team Providers Care Manager Assembly Name Role Phone Gregg Todd MD Primary Care Provider [phone] Reason for Referral * Consultation (Routine) - Pending Review Specialty Diagnoses / Procedures Referred By Conthardik t Referred To Contact General Surgery Diagnoses Abdominal hernia without obstruction and without gangrene, recurrence not specified, unspecified hernia type Gregg Todd MD 175 [facility] [address] [place] [address] Phone: tel: fax: Referral ID Status Reason Start Date Expiration Date Visits Requested Visits Authorized [id number] Pending Review Specialty Services Required 05/10/2026 1 1 Reason for Visit * Reason Onset Date Comments Perez: Referral 05/04/2025 Encounter Details Date Type Department Care Team ([facility] st Contact Info) Description 05/04/2025 Telephone Internal Medicine - [address] [place] [phone] Kalli Andrade MA Social History Tobacco Use [...] your loved ones. For example, child care worker or elderly care for an older adult? [...] AM EDT Office Visit Internal Medicine - [place] [address] [phone] Gregg Todd MD [address] [address] 11/30/2025 11:00 AM EDT Office Visit Pulmonology - [place] [address] [phone] Felicia Sparrow MD [address] [place] [phone] Scheduled Referrals Name Type Priority Associated Diagnoses [...] documented as of this encounter Care Teams Manager Assembly Relationship Specialty Start Date End Date Gregg Todd MD [address] [address] PCP - General Internal Medicine 04/17/21 documented as of this encounter
--- OUTSIDE RECORDS SUMMARY | 2025-06-05 10:24 | XMS_ITS | Encounter Summary ---
Author Organization [facility] Address [address] [place] [address] Care Team Providers Care Coat Presser Name Role Phone Gregg Todd MD Primary Care Provider [phone] Reason for Visit * Reason Onset Date Comments Letter for School/Work 05/16/2025 Encounter Details Date Type Department Care Team ([facility] st Contact Info) Description 05/16/2025 Telephone Internal Medicine - [place] [address] [facility] [address] [place] [phone] Gregg Todd MD [address] [facility] [address] [place] [address] Social History Tobacco Use Types Packs/Day Years [...] your loved ones. 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 He stated he has chronic back pain and cannot sit for long periods of time. His badge number is [id number] and Pin # [id number], for date: September 01, 2025. He asked if this can be faxed to [facility] Jury office at fax # [phone] once completed. documented in this encounter Plan of Treatment Upcoming Encounters Date Type Department Care Team (Late st Contact Info) Description 09/28/2025 8:15 AM EDT Office Visit Internal Medicine - [place] [address] [phone] Gregg Todd MD [address] [id number] 11/30/2025 11:00 AM EDT Office Visit Pulmonology - [place] [address] [phone] Felicia Sparrow MD [address] [place] [phone] documented as of this encounter Visit Diagnoses Not on filedocumented in this encounter Additional Health Concerns Assessment Noted Time PHQ-9 Depression Total Score: 10 025 9:46 PM EDT documented as of this encounter Care Teams Coat Presser Relationship Specialty Start Date End Date Gregg Todd MD [address] [place] [address] [address] [place] [address] PCP - General Internal Medicine 04/17/21 documented as of this encounter
== END 2025-06-05 09:47 | disposition home or self-care (01) ==
LOC: HO.PMC 09:19
PROVIDERS: PCP Internal Medicine; Visit Provider Internal Medicine
DX: Z79.891 Long term (current) use of opiate analgesic (principal); M53.3 Sacrococcygeal disorders, not elsewhere classified
CPT/HCPCS: 99214

== ENCOUNTER → 2025-06-05 09:18 | Outpatient (BNVA) | payer MEDICARE, MEDICAID, SELFPAY | PROVIDERS: PCP Internal Medicine; Visit Provider Internal Medicine | DX: M53.3 Sacrococcygeal disorders, not elsewhere classified (principal); G89.29 Other chronic pain; K43.2 Incisional hernia without obstruction or gangrene; R60.0 Localized edema; Z79.891 Long term (current) use of opiate analgesic | CPT/HCPCS: 99212 ==

== ENCOUNTER 2025-06-13 12:24 | Outpatient (REF) | payer MEDICARE, MEDICAID, SELFPAY ==
--- OUTSIDE RECORDS SUMMARY | 2025-06-08 15:54 | XMS_ITS | Continuity of Care Document ---
Author Organization [facility] al Address [address] [place] [address]- Care Team Providers Care Drug Discovery Informatics Specialist Name Role Phone Gregg Todd MD Primary Care Physician Encounter [facility] Date(s): 06/08/25 - 06/08/[address] [address]- Encounter Diagnosis Allergic reaction(Final) - 06/08/25 Brain TIA(Final) - 06/08/25 Discharge Disposition: A-D/C Home Attending Physician: Delilah Hdz MD Admitting Physician: Delilah Hdz MD Referring Physician: Not on Staff, Referring MD Encounter Type: Disch ES Allergies, Adverse Reactions, Alerts No Known Allergies Medications acetaminophen-hydrocodone 325 mg-7.5 mg oral tablet 1 tablet, By Mouth, Every 4 hours, PRN as needed for pain, 0 Refills, Maintenance, 10/10/22 9:33:00 AM EDT, Tablet, Partial fill upon patient request if the prescription is for a schedule II opioid drug. Start Date: 10/10/22 Status: Ordered Medication Dispense Status: Completed Total Allowed Fills: 1 Fills Dispensed: 0 Alprazolam By Mouth, Refills 0, Maintenance, 07/18/19 1:17:00 PM EST Start Date: 07/18/19 Status: Ordered Medication Dispense Status: Completed Total Allowed Fills: 1 Fills Dispensed: 0 Benadryl 25 mg oral capsule 1 capsule = 25 mg, By Mouth, 3 times a day, PRN for allergy symptoms, for 5 days, # 24 capsule, 0 Refills, Acute 06/13/25 2:33:00 PM EST, 06/08/25 2:33:00 PM EST, Capsule, [facility]/pharmacy #[id number], Partialfill upon patient request if the prescription is for a schedule II opioid drug., 180, cm, 06/08/25 14:06:00 EST, Height, 92.6, kg, 06/08/25 14:06:00 EST, Dry Weight Start Date: 06/08/25 Stop Date: 06/13/25 Status: Ordered Medication Dispense Status: Completed Quantity: 24.0 Unit: capsule Total Allowed Fills: 1 Fills Dispensed: 0 clotrimazole 1% topical cream 1 application, Topically, 2 times a day, # 12 Gm, 0 Refills, Acute 06/22/25 7:00:00 AM EST, 06/08/25 2:39:00 PM EST, Cream, [facility]/pharmacy #[id number], Partial fill upon patient request if the prescription is for a schedule II opioid drug., 1 application Topically 2 times a day, 180, cm, 06/08/25 14:06:00 EST, Height, 92.6, kg, 06/08/25 14:06:00 EST, Dry Weight Start Date: 06/08/25 Stop Date: 06/22/25 Status: Ordered Medication Dispense Status: Completed Quantity: 12.0 Unit: g Total Allowed Fills: 1 Fills Dispensed: 0 Duloxetine By Mouth, 0 Refills, Maintenance, 07/18/19 1:17:00 PM EST Start Date: 07/18/19 Status: Ordered Medication Dispense Status: Completed Total Allowed Fills: 1 Fills Dispensed: 0 EPINEPHrine (Eqv-EpiPen) Auto-Injector 0.3 mg injectable kit = 0.3 mg, Intramuscular, Once, PRN Anaphylactic Reaction, # 2 kit, 0 Refills, Soft Stop, 06/08/25 2:34:00 PM EST, [facility]/pharmacy #[id number], Partial fill upon patient request if the prescription is for a schedule II opioid drug., 180, cm, 06/08/25 14:06:00 EST, Height, 92.6, kg, 06/08/25 14:06:00 EST, DryWeight Start Date: 06/08/25 Status: Ordered Medication Dispense Status: Completed Quantity: 2.0 Unit: kit Total Allowed Fills: 1 Fills Dispensed: 0 famotidine 20 mg oral tablet 20 mg, 1, tablet, By Mouth, 2 times a day, # 10 tablet, Refills 0, Tot. Refills 0, Maintenance, 06/08/25 2:33:00 PM EST, Route to Pharmacy Electronically, [facility]/pharmacy #[id number], Partial fill upon patient request if the prescription is for a schedule II opioid drug., 180, cm, 06/08/25 14:06:00 EST, Height, 92.6, kg, 06/08/25 14:06:00 EST, Dry Weight Start Date: 06/08/25 Stop Date: 06/13/25 Status: Ordered Medication Dispense Status: Completed Quantity: 10.0 Unit: tablet Total Allowed Fills: 1 Fills Dispensed: 0 gabapentin 600 mg oral tablet 1 tablet = 600 mg, By Mouth, 3 times a day, 0 Refills, Maintenance, 07/18/19 1:16:00 PM EST Start Date: 07/18/19 Status: Ordered Medication Dispense Status: Completed Total Allowed Fills: 1 Fills Dispensed: 0 predniSONE 50 mg oral tablet 1 tablet = 50 mg, By Mouth, Daily, for 4 days, # 4 tablet, 0 Refills, Acute 06/12/25 2:33:00 PM EST, 06/08/25 2:33:00 PM EST, Tablet, [facility]/pharmacy #[id number], Partial fill upon patient request if the prescription is for a schedule II opioid drug., 180, cm, 06/08/25 14:06:00 EST, Height, 92.6, kg, 06/08/25 14:06:00 EST, Dry Weight Start Date: 06/08/25 Stop Date: 06/12/25 Status: Ordered Medication Dispense Status: Completed Quantity: 4.0 Unit: tablet Total Allowed Fills: 1 Fills Dispensed: 0 Simvastatin By Mouth, 0 Refills, Maintenance, 07/18/19 1:16:00 PM EST Start Date: 07/18/19 Status: Ordered Medication Dispense Status: Completed Total Allowed Fills: 1 Fills Dispensed: 0 Tamsulosin 0.4 mg, By Mouth, Daily, Refills 0, Maintenance, 07/18/19 1:17:00 PM EST Start Date: 07/18/19 Status: Ordered Medication Dispense Status: Completed Total Allowed Fills: 1 Fills Dispensed: 0 Tizanidine By Mouth, Refills 0, Maintenance, 07/18/19 1:16:00 PM EST Start Date: 07/18/19 Status: Ordered Medication Dispense Status: Completed Total Allowed Fills: 1 Fills Dispensed: 0 traMADol 50 mg oral tablet 1 tablet = 50 mg, By Mouth, Every 4 hours, 0 Refills, Maintenance, 07/18/19 1:16:00 PM EST Start Date: 07/18/19 Status: Ordered Medication Dispense Status: Completed Total Allowed Fills: 1 Fills Dispensed: 0 Results Radiology Reports * Exam Date Time Procedure Performing Provider Status 06/08/25 12:15 PM Chest 2 Views Frontal and Lat Auth (Verified) Notes: (Chest 2 Views Frontal and Lat) Reason For Exam: Stroke;Other: RESULT: Chest 2 Views Frontal and Lat Chest 2 Views Frontal and Lat Hx of Present Illness: Presents w facial swelling onset this morning, Sts noticed hives on lower belly last night. Denies any medication food allergy. Denies sob CP.; Reason: Other:; Stroke; ClinicalQuestion(s): CHF COMPARISON: None. FINDINGS: LINES AND TUBES: None. LUNGS AND PLEURA: Clear lungs. Normal pulmonary vascularity. No evidence of pleural effusion. No pneumothorax. HEART, MEDIASTINUM AND GIOVANA: Heart is normal in size. Normal mediastinal and hilar contour. BONES AND SOFT TISSUES: No acute abnormality. IMPRESSION: No acute abnormality. WSN: [id number] Ordering Physician: Delilah Hdz Dictated By: Paola Kolb MD, I Dictated Date/Time: 06/08/25 12:54 p Reviewed By: Paola Kolb MD, I Signed By: Paola Kolb MD, I Signed Date/Time: 06/08/25 12:54 pm Transcribed By: MELODY Transcribed Date/Time: 06/08/25 12:53 pm * Exam Date Time Procedure Performing Provider Status 06/08/25 10:[address] Angio Neck Auth (Maria De Jesus ified) Notes: (CT Angio Neck) Reason For Exam: Aneurysm, neck vessel(s);Other: RESULT: CT Angio Neck CT Angio Head, CT Angio Neck INDICATION: Hx facial swelling and chest pain. TECHNIQUE: CT angiogram of the head and neck was performed after bolus administration of intravenous contrast. 100 mL of Isovue 300 100cc vials was administered intravenously. Coronal and sagittal MIP reformatted images were obtained. Additional 3-D images were created on a separate workstation under concurrent supervision by the attending radiologist. All stenoses are measured using NASCET criteria. Weight-based protocol using automatic tube modulation was used to optimize exposure parameters. CTDIvol Body: 8.08 mGy, DLP Body: 584 mGy*cm. COMPARISON: Noncontrast CT head performed concurrently. FINDINGS: CTA OF THE NECK: Arch: There is a three vessel aortic arch. The origins of the supra aortic vessels are patent. Right carotid system: The common carotid and cervical internal carotid arteries are patent. There is calcified atherosclerotic plaque at the carotid bifurcation, but no ICA stenosis (0%) by NASCET criteria. Left carotid system: The common carotid and cervical internal carotid arteries are patent. No stenosis (0%) by NASCET criteria. There is a left-dominant vertebral artery system. Right vertebral: Patent. Left vertebral: Patent. Other: Soft tissues and bones: No evidence of lymphadenopathy or mass. Subcentimeter thyroid nodularity, not requiring follow-up given the small size. Visualized lung apices are clear. There is severe disc space narrowing at C5-6 with disc osteophyte causing probably moderate canal stenosis. Multilevel facet spurring also noted. CTA OF THE HEAD: Anterior circulation: The intracranial ICAs are patent. There is a 2 mm outpouching along the posterior right supraclinoid ICA. The left A1 segment is extremely hypoplastic. Right A1 segment and A2 segments are patent with possible fenestration of the anterior communicating artery towards the left.Bilateral M1 and proximal branches are patent. Posterior circulation: The right vertebral artery terminates in PICA, which is a normal variant. Left vertebral artery, basilar artery, superior cerebellar arteries, and posterior cerebral arteries are patent with predominantly supply of the left ENGLISH AS A SECOND LANGUAGE INSTRUCTOR. Veins: Major dural venous sinuses are patent. Other: Soft tissues and bones: No midline shift or effacement of the basal cisterns. No space-occupying hemorrhage. No acute territorial loss of martinez-white matter differentiation. Orbits are unremarkable. No significant opacification in the paranasal sinuses or mastoid air cells. IMPRESSION: 1. No proximal occlusion or high grade stenosis in the major arteries of the head and neck. 2. 2 mm outpouching along the right supraclinoid ICA, which may represent a tiny aneurysm versus infundibulum of a nonvisualized branch vessel. WSN: [id number] Ordering Physician: Delilah Hdz Dictated By: Cristina BATEMAN Yasmine Dictated Date/Time: 06/08/25 11:08 a Reviewed By: Yasmine Evans MD Signed By: Yasmine Evans MD Signed Date/Time: 06/08/25 11:08 am Transcribed By: MELODY Transcribed Date/Time: 06/08/25 10:29 am * Exam Date Time Procedure Performing Provider Status 06/08/25 10:[address] Angio Head Auth (Maria De Jesus ified) Notes: (CT Angio Head) Reason For Exam: Neuro deficit, acute, stroke suspected;Other: RESULT: CT Angio Head CT Angio Head, CT Angio Neck INDICATION: Hx facial swelling and chest pain. TECHNIQUE: CT angiogram of the head and neck was performed after bolus administration of intravenous contrast. 100 mL of Isovue 300 100cc vials was administered intravenously. Coronal and sagittal MIP reformatted images were obtained. Additional 3-D images were created on a separate workstation under concurrent supervision by the attending radiologist. All stenoses are measured using NASCET criteria. Weight-based protocol using automatic tube modulation was used to optimize exposure parameters. CTDIvol Body: 8.08 mGy, DLP Body: 584 mGy*cm. COMPARISON: Noncontrast CT head performed concurrently. FINDINGS: CTA OF THE NECK: Arch: There is a three vessel aortic arch. The origins of the supra aortic vessels are patent. Right carotid system: The common carotid and cervical internal carotid arteries are patent. There is calcified atherosclerotic plaque at the carotid bifurcation, but no ICA stenosis (0%) by NASCET criteria. Left carotid system: The common carotid and cervical internal carotid arteries are patent. No stenosis (0%) by NASCET criteria. There is a left-dominant vertebral artery system. Right vertebral: Patent. Left vertebral: Patent. Other: Soft tissues and bones: No evidence of lymphadenopathy or mass. Subcentimeter thyroid nodularity, not requiring follow-up given the small size. Visualized lung apices are clear. There is severe disc space narrowing at C5-6 with disc osteophyte causing probably moderate canal stenosis. Multilevel facet spurring also noted. CTA OF THE HEAD: Anterior circulation: The intracranial ICAs are patent. There is a 2 mm outpouching along the posterior right supraclinoid ICA. The left A1 segment is extremely hypoplastic. Right A1 segment and A2 segments are patent with possible fenestration of the anterior communicating artery towards the left.Bilateral M1 and proximal branches are patent. Posterior circulation: The right vertebral artery terminates in PICA, which is a normal variant. Left vertebral artery, basilar artery, superior cerebellar arteries, and posterior cerebral arteries are patent with predominantly supply of the left ENGLISH AS A SECOND LANGUAGE INSTRUCTOR. Veins: Major dural venous sinuses are patent. Other: Soft tissues and bones: No midline shift or effacement of the basal cisterns. No space-occupying hemorrhage. No acute territorial loss of martinez-white matter differentiation. Orbits are unremarkable. No significant opacification in the paranasal sinuses or mastoid air cells. IMPRESSION: 1. No proximal occlusion or high grade stenosis in the major arteries of the head and neck. 2. 2 mm outpouching along the right supraclinoid ICA, which may represent a tiny aneurysm versus infundibulum of a nonvisualized branch vessel. WSN: [id number] Ordering Physician: Delilah Hdz Dictated By: Yasmine Evans MD Dictated Date/Time: 06/08/25 11:08 a Reviewed By: Yasmine Evans MD Signed By: Yasmine Evans MD Signed Date/Time: 06/08/25 11:08 am Transcribed By: MELODY Transcribed Date/Time: 06/08/25 10:29 am * Exam Date Time Procedure Performing Provider Status 06/08/25 10:[address] Head/Brain W/O Contrast Auth (Verified) Notes: (CT Head/Brain W/O Contrast) Reason For Exam: Neuro deficit, acute, stroke suspected;Other: RESULT: CT Head/Brain W/O Contrast CT Head/Brain W/O Contrast INDICATION: Hx of Present Illness: Presents w facial swelling onset this morning, Sts noticed hiveson lower belly last night. Denies any medication food allergy. Denies sob CP.; Reason: Other:; Neuro deficit, acute, stroke suspected; Clinical Question(s): Other:; Hematoma Infarction - TECHNIQUE: Noncontrast head CT using axial technique and reconstructed in axial and coronal planes.Iterative reconstruction techniques are used to optimize dose and image quality. COMPARISON: None. FINDINGS: Hedge Fund Accountant view findings, lines and tubes: None. BRAIN AND EXTRA-AXIAL SPACES: No acute parenchymal hemorrhage, midline shift, or mass effect. Martinez-white matter differentiation is well preserved. No acute territorial infarct. Small old left basal ganglia lacunar infarct versus prominent Virchow-Reid spaces. Ventricles, sulci, and basilar cisterns are normal. Mild low-density white matter changes. No subarachnoid hemorrhage. No subdural or epidural collection. CALVARIUM, SKULL BASE, AND SOFT TISSUES: No fractures or suspicious bony lesions. The visualized paranasal sinuses and mastoid air cells are clear. Visualized orbits and globes are intact. The extracranial soft tissues are unremarkable. IMPRESSION: No acute intracranial pathology. WSN: [id number] Ordering Physician: Delilah Hdz Dictated By: Philip Sosa MD Dictated Date/Time: 06/08/25 10:20 a Reviewed By: Philip Sosa MD Signed By: Philip Sosa MD Signed Date/Time: 06/08/25 10:20 am Transcribed By: MELODY Transcribed Date/Time: 06/08/25 10:17 am Vital Signs Most recent to oldest [Reference Range]: 1 2 3 Height 180 cm (06/08/25 2:06 PM) 180 cm (06/08/25 11:02 AM) 180 cm (06/08/25 9:07 AM) Weight 92.6 kg (06/08/25 2:06 PM) 92.6 kg (06/08/25 11:02 AM) 92.6 kg (06/08/25 9:07 AM) Oxygen Saturation [94-100 %] 97 % (06/08/25 2:06 PM) 99 % (06/08/25 11:02 AM) 98 % (06/08/25:07 AM) Pulse Rate [55-90 bpm] 69 bpm (06/08/25 2:06 PM) 67 bpm (06/08/25 11:02 AM) 59 bpm (06/08/25 9:07 AM) Body Mass Index [18.5-24.99 kg/m2] 28.58 kg/m2 *H* (06/08/25 2:06 PM) 28.58 kg/m2 *H* (06/08/25 11:02 AM) 28.58 kg/m2 *H* (06/08/25 9:07 AM) Blood Pressure [90-138/55-84 mm Hg] 146/77mm Hg *H* (06/08/25 2:06 PM) 149/87mm Hg *H* (06/08/25 11:02 AM) 137/74mm Hg (06/08/25 9:07 AM) Respiratory Rate [16-30 br/min] 17 br/min (06/08/25 2:06 PM) 18 br/min (06/08/25 11:02 AM) 18 br/min (06/08/25 9:07 AM) Temperature [96.8-100.4 DegF] 99.0 DegF (06/08/25 2:06 PM) 97.8 DegF (06/08/25 11:02 AM) 98 DegF (06/08/25 9:07 AM) Mode of Delivery (Oxygen) Room air (06/08/25 2:06 PM) Room air (06/08/25 11:02 AM) Room air (06/08/25 9:07 AM) Blood pressure sites Arm, left (06/08/25 2:06 PM) Arm, right (06/08/25 11:02 AM) Arm, right (06/08/25 9:07 AM) Temperature Route Oral (06/08/25 2:06 PM) Oral (06/08/25 11:02 AM) Oral (06/08/25 9:07 AM) Dry Weight 92.6 kg (06/08/25 2:06 PM) 92.6 kg (06/08/25 11:02 AM) 92.6 kg (06/08/25 9:07 AM) Weight Obtained Via Standing scale (06/08/25 5:52 AM) Social History Social History Type Response Smoking Status Never (less than 100 in lifetime) entered on: 07/18/19 Sex Sex Representation Male (finding) Status N/A Note * Delilah Hdz MD: PERFORM Event Display: Patient Education Leaflets Authored Date: [id number] Medicine Reaction: Allergic ?? [id number] Medicine Reaction: Allergic You are having an allergic reaction to a medicine you have taken. This may cause an itchy rash and sometimes swelling of various parts of the body. It could also cause trouble swallowing or breathing. The rash may take a few hours or up to??2 weeks to go away. In the future, remember to tell [facility] providers and your pharmacist about your allergy to this medicine so that medicinesof this type won't be used again. Any??medicine can cause an allergic reaction. But most allergic reactions are caused by: ??? Penicillin and related medicines ??? Antibiotics containing sulfonamides (sulfa medicines) ??? Aspirin ??? Ibuprofen or other nonsteroidal anti- inflammatory drugs ??? Seizure medicines Vaccines may also set off allergies.?? People whose parents or siblings have allergies are at a higher risk of developing a medicine allergy. Allergy testing may sometimes be needed to figure out the cause. Symptoms may occur within minutes, hours, or even weeks after exposure to the medicine. It can be amild or severe reaction, or potentially life- threatening.??Most of us think of allergic reactions when we have a rash or itchy skin. Symptoms can include: ??? Rash, hives, redness, welts, blisters ??? Itching, burning, stinging, pain ??? Dry, flaky, cracking, scaly skin ??? Belly (abdominal) cramps, nausea or vomiting, or stomach pain ??? Fever.??Sometimes, fever is the only symptom of a medicine reaction. In older adults, the risk of fever increaseswith the number of medicines the person takes. More severe symptoms include: ??? Swelling of the face or lips, or drooling ??? Trouble swallowing, feeling like your throat is closing ??? Trouble breathing, wheezing ??? Hoarse voice or trouble speaking ??? Severe nausea or vomiting or diarrhea ??? Feeling faint or lightheaded, rapid heart rate ??? Blistering of the skin or ulcers in the mouth or on the genitals If you have any severe symptoms, call 911 right away. Home care The goal of treatment is to help relieve the symptoms and get you feeling better. Mild to medium medicine reactions usually respond quickly to taking antihistamines or steroids and stopping the medicine. Talk to your provider about medicines that are right for you. The rash will usually fade over several days. But it can sometimes last a couple of weeks. Over the next couple of days, there may betimes when it gets a little worse and then better again. Here are some things to do: ??? Dispose ofthe medicine safely and don???t take it again. The next reaction could be the same or worse. Make sure you ask what related medicines you should also stay away from and what medicines you can use as a replacement. ??? Call your healthcare provider to discuss adding this medicine's allergy reaction to your electronic medical record. ??? If you had a severe reaction (called anaphylaxis), your provider may give you epinephrine. Epinephrine will stop anaphylaxis.?? Before??you leave the hospital, make sure you know when and how to use this medicine. ??? If the reaction is severe, consider wearinga medical alert bracelet or necklace. ??? When getting a new medicine, always tell the healthcare provider that you are allergic to this medicine. Make certain the provider writes it down in your medical record. ??? Don't wear tight clothing and stay away from anything that heats up your skin (hot showers or baths, direct sunlight). Heat will make itching worse. ??? An ice pack will relieve localareas of intense itching and redness.??To make an ice pack, put ice cubes in a plastic bag that seals at the top. Wrap the bag in a??clean, thin??towel or cloth. Apply it to the affected area for 5 to 10 minutes. Don???t put ice directly on the skin. ??? Don't scratch the affected area. Scratching may make the reaction worse. It can damage your skin and lead to an infection. Always check the affected site for signs of an infection. ??? Your provider may give you a prescription antihistamine. Take it as directed by your provider. ??? If you are not given a prescription antihistamine, oral??diph enhydramine is an oahy-uyk-bggoyin antihistamine available at pharmacies and grocery stores. This may be used to reduce itching if large areas of the skin are involved.??This antihistamine may make you sleepy, so be careful using it in the daytime or when going to school, working, or driving. Note:??Don???t use??diphenhydramine if you have glaucoma or if you have trouble peeing due to an enlargedprostate. There are other antihistamines that cause less drowsiness and??are a good choice for daytime use. Ask your pharmacist or healthcare provider for suggestions. ??? Don't??use diphenhydramine cream on your skin. It can cause a worse skin reaction??for some people. ??? Contact your healthcare provider and ask what can be used on the affected area to help decrease the itching. ?? Follow-up care Follow up with your healthcare provider as advised if your symptoms do not continue to improve or they get worse. ?? Call 911 Call 911 right away if any of these occur: ??? Shortness of breath ??? Cool, moist, pale skin ??? Swelling in the face, eyelids, mouth, throat, tongue, or lips ??? Drooling ??? Trouble breathing or swallowing, wheezing ??? Hoarse voice or trouble speaking? Fainting or loss of consciousness ???Rapid heart rate ??? Feeling of dizziness or weakness or a sudden drop in blood pressure ??? Feeling of doom ??? Feeling lightheaded ??? Severe stomach pain, nausea, vomiting, or diarrhea ?? When to get medical advice Call your healthcare provider or get medical care right away if any of these occur: ??? Symptoms that last, get worse, or go away and come back ??? Nausea, belly cramps, or stomach pain ??? Spreadingareas of itching, redness, or swelling ??? Skin blisters, or sores or ulcers in the mouth or on thegenitals ??? Signs of infection: o Spreading redness o Increased pain or swelling o Fever of 100.4??F (38??C) or higher lasting for 24 to 48 hours, or as directed by your provider o Fluid or colored drainage from the??affected??area ?? Last Reviewed Date: 2024 00:00:00 ?? The [employer]. All rights reserved. This information is not intended as a substitute for professional medical care. Always follow your healthcare professional's instructions. ?? * Delilah Hdz MD: PERFORM Event Display: Patient Education Leaflets Authored Date: [id number] General Allergic Reactions ?? [id number] General Allergic Reactions An allergic reaction is a set of symptoms caused by an allergen. An allergen is something that causes your immune system to react abnormally. It releases various chemicals. These include histamine. Histamine causes swelling and itching. An allergic reaction may affect the entire body. This is called a general allergic reaction.??Often, symptoms affect only 1 part of the body. This is called a local allergic reaction. You are having an allergic reaction. Almost anything can cause it. Different people are allergic todifferent things. It's usually something that you ate or swallowed, came into contact with by getting or putting it on your skin or clothes, or something you breathed in the air. This can be very annoying and sometimes scary. Most people think of allergic reactions when they have a rash or itchy skin. Other symptoms can include: ??? Itching of the eyes, nose, and roof of the mouth ??? Runny or stuffy nose ??? Watery eyes?Sneezing or coughing? A??blocked feeling in the ear ??? Red, raised, itchy??rash called hives ??? Red and purple spots ??? Rash, redness, welts, blisters ??? Itching, burning, stinging, pain ???Dry, flaky, cracking, scaly skin Severe symptoms include: ??? Swelling of the face, lips, mouth, throat, or other parts of the body ??? Hoarse voice ??? Trouble swallowing, feeling like your throat is closing ??? Trouble breathing, wheezing ??? Nausea, vomiting, diarrhea, stomach cramps ??? Feeling faint or lightheaded, rapid heart rate Sometimes the cause of an allergic reaction may be obvious. But there are so many things that can cause a reaction that you may not be able to figure it out. The most important things to help find your allergen are to remember: ??? Where you were, such as in a forest, factory, grocery store, or paint store ??? When it started??? What you were doing at the time or just before that ??? What activities you were involved in ??? If you were exposed to anything new Below are some common causes of allergies. Some of these can cause severe general allergic reactions. Others can cause mild to moderate symptoms. But remember that almost anything can cause a reaction. You may not even be aware that you came into contact with one of these things: ??? Dust, mold, pollen ??? Plants (common ones are poison isa and poison oak, but there are many others)? Animals ??? Foods, such as shrimp, shellfish, peanuts, tree nuts, milk products, wheat, and eggs ??? Food colorings, flavorings, and additives ??? Insect bites or stings, such as bees, mosq uitoes,??fleas, and ticks ??? Medicines, such as??penicillin, sulfa medicines, aspirin, and ibuprofen. But any medicine can cause a reaction. ??? Jewelry,??such as nickel or gold. This can be new, or something you???ve worn for a while, including zippers and buttons. ??? Latex, such as in gloves, c lothes, toys, balloons, or some tapes. Some people allergic to latex may also have problems with foods like bananas, avocados, kiwi, papaya, or chestnuts. ??? Lotions, perfumes, cosmetics, soaps, shampoos, skincare products, nail products ??? Chemicals or dyes in clothing, linen, studio operator, hair dyes, soaps, iodine Many viruses and common colds can cause a rash (such as hives) that is not an allergic reaction. Sometimes it's hard to tell the difference between allergies, sensitivity, or??an intolerance to something. This is especially true with food. Many things can cause diarrhea, vomiting, stomach cramps, and skin irritation. Home care The goal of treatment is to help relieve the symptoms and get you feeling better. The rash will usually fade over several days. But it can sometimes last a couple of weeks. Over the next couple of days, there may be times when it gets a little worse, and then better again. Here are some things to do: ??? If you know what you are allergic to, stay away from it. Future exposures may cause similar or sometimes worse symptoms. ??? Don't wear tight clothing and stay away from anything that heats up your skin, such as hot showers or baths, and direct sunlight. Heat will make itching worse. ??? An ice pack will relieve local areas of intense itching and redness. To make an ice pack, put ice cubes in a plastic bag that seals at the top. Wrap it in a thin, clean towel. Apply the ice pack for 5 to 10 minutes. Don???t put the ice directly on the skin because it can damage the skin. ??? Oral diphenhydramine is an nwly-qou-oyirces antihistamine sold at pharmacies and grocery stores. Unless a prescription antihistamine was given, diphenhydramine may be used to reduce itching if large areas of theskin are involved.??It may make you sleepy. So be careful using it in the daytime or when going to school, working, or driving. Note: Don???t use??diphenhydramine??if you have glaucoma or if you havetrouble urinating because of an enlarged prostate. There are other antihistamines that won???t makeyou so sleepy. These are good choices for daytime use. Ask your healthcare provider or pharmacist for suggestions. ??? Don???t use??diphenhydramine??cream on your skin unless prescribed. It may causea worse reaction in some people. ??? To help prevent an infection, don't scratch the affected area.??Scratching??may make the reaction worse and??damage your skin. It can also lead to an infection. Always check the affected areas for signs of an infection. ??? Call your healthcare provider and ask what you can use to help decrease the itching. ??? To decrease your exposure to allergens, try the following: ?? o Use heat-steam to clean your home. o Use high-efficiency particulate (HEPA) vacuums and filters. o Stay away from food and pet triggers. o Kill any cockroaches and use pest control to keep infestations from happening again. o Clean your house often. ?? Follow-up care Follow up with your healthcare provider, or as advised. You may be referred to an social work msw. If youhad a severe reaction today, or if you have had several mild to medium allergic reactions in the past, ask your provider about allergy testing. This can help you find out what you are allergic to. Ifyou had a severe reaction that included dizziness, fainting, or trouble breathing or swallowing, ask your provider about carrying epinephrine and wearing a medical alert bracelet or necklace. You canalso ask if allergy immunotherapy (such as allergy shots) may be right for you. ?? Call 911 Call 911 right away if any of these occur: ??? Trouble breathing or swallowing, wheezing ??? Cool, moist, pale skin ??? Shortness of breath ??? Hoarse voice or trouble speaking ??? Confusion? Very drowsy or trouble awakening ??? Fainting or loss of consciousness ??? Rapid heart rate ??? Feeling of dizziness or weakness or a sudden drop in blood pressure ??? Feeling of doom ??? Feeling lightheaded ??? Severe nausea or vomiting,??or diarrhea ??? Seizure ??? Swelling in the face, eyelids, lips, mouth, throat, or tongue ??? Drooling ?? When to seek medical advice Call your healthcare provider or get medical care right away if any of these occur: ??? Spreading areas of itching, redness, or swelling ??? Nausea or stomach cramps or abdominal pain ??? Symptoms that continue, get worse, or happen more than once ??? Spreading areas of redness, swelling, or itching ??? Signs of infection at the affected site: o Spreading redness o Increased pain or swelling o Fluid or colored drainage from the site o Fever of 100.4??F (38??C) or higher, or as directed by your healthcare provider ?? Last Reviewed Date: 2024 00:00:00 ?? 7715-6405 [employer]. All rights reserved. This information is not intended as a substitute for professional medical care. Always follow your healthcare professional's instructions. ?? * Delilah Hdz MD: PERFORM Event Display: Patient Education Leaflets Authored Date: [id number] Transient Ischemic??Attack (TIA) ?? [id number] Transient Ischemic??Attack (TIA)?? Your symptoms were caused by a TIA, or??mini-stroke. Even though your symptoms have gone away, thiscondition is as serious as a full stroke. It is a warning signal that means once you have had a TIAyou are at a higher risk of having a full stroke. The risk of a stroke after a TIA is highest within the first 24 to 48 hours. A TIA??is caused when something decreases or blocks blood flow??to a part of your brain. A TIA often happens when a blood clot travels to a blood vessel in the brain. The clot reduces or blocks bloodflow causing the symptoms you have experienced. After a short while, the clot dissolves. Blood??flows again, and the symptoms go away. People with hardening of the arteries (atherosclerosis) or an irregular heartbeat called atrial fibrillation are at higher risk for a TIA. A TIA causes??symptoms similar to a stroke, but they??last less than 24 hours. A full stroke causessymptoms that last more than 24 hours and may be permanent. But even if your symptoms only lasted ashort time, the TIA may have damaged??your brain tissue. You will need??tests to look at??the bloodflow to your brain. The tests??can also??rule out other causes of your symptoms. The tests may include an ultrasound of the arteries in your neck and an evaluation of your heart. They may also include a CT scan of your brain, an MRI scan of your brain, or both. If your healthcare provider finds problems, they will recommend treatment with medicines, procedures, or both. Your provider may prescribe medicines to reduce your chance of having another TIA and stroke. Thesemay include medicines that prevent blood clots, such as antiplatelet medicines and blood thinners (anticoagulants). Your healthcare provider may recommend other treatments. This may include a procedure to open up a blocked artery in your neck or a procedure to prevent blood clots from forming in the heart. Home care These guidelines will help you take care of yourself at home: ??? Take any medicines your healthcare provider has prescribed as directed. These may include antiplatelet medicines or medicines for other conditions, such as high blood pressure or high cholesterol. ??? A TIA is a serious event that puts you at risk of having a full stroke. Because of this, it's important to take steps to help prevent a stroke from happening. Your provider will look at all of??your risk factors when deciding on what other treatment you may need. ?? Ways to reduce your risk for stroke High blood pressure, diabetes, high cholesterol, heavy drinking,??and smoking are risk factors for stroke and heart disease. You can control these by taking medicines and making diet and lifestyle changes. One way to help prevent a stroke??is to??take aspirin or a similar medicine every day. However, you should not take daily aspirin unless your healthcare provider tells you to. Your??provider will work with you to make lifestyle changes to help prevent a stroke. Diet Your healthcare provider will give you information about changes you may need to make to your diet.You may need to see a registered dietitian for help with diet changes. Changes may include: ??? Eating less??fat and cholesterol ??? Eating less salt (sodium). This??is especially important??if you have high blood pressure. ??? Eating more fresh fruits and vegetables ??? Eating lean proteins, such as fish, poultry,??beans, and peas ??? Eating less red meat and processed meats ??? Using low-fat dairy products ??? Using vegetable and nut oils in limited amounts ??? Limiting how many sweets and processed foods, such as chips, cookies,??and baked goods you eat ??? Limiting how much alcohol you drink Physical activity Your healthcare provider may recommend that you get more exercise if you have not been as active aspossible. They may suggest that you get??40 minutes of??moderate to vigorous??physical activity??each day. You should do this??at least 3 to 4 days a week. A few examples of moderate to vigorous??exercise are: ??? Walking at a brisk pace, about 3 to 4 miles per hour ??? Jogging or running ??? Swimming or water aerobics ??? Hiking ??? Dancing ??? Martial arts ??? Tennis ??? Riding a bike Other ways to reduce your risk ??? Weight management. If you are overweight or obese, your healthcare provider will work with you to lose weight and lower your body mass index (BMI) to a normal or near-normal level. Making diet changes and increasing physical activity can help. ??? Smoking. If you smoke, break the habit. Enroll in a stop smoking program to??improve your chances of success. ??? Stress. Learn how to manage your stress. If necessary, work with a mental health professional who can help you develop coping strategies that??can help you deal with stress at home and at work. ?? Follow-up care Call your healthcare provider for an appointment in the next few days for another evaluation, or asadvised. This is to make a plan for preventing another TIA or stroke. You may need to see a??neurologist to follow up on your TIA. A neurologist is a healthcare provider who specializes in treating brain and nervous system problems. You may need other tests or procedures. If you had an X-ray, CT scan, MRI scan, or ECG (electrocardiogram), a specialist will review it. You???ll be told of any new findings that will affect your care. ?? Call 911 Call 911 if any of these occur: ??? Any of your TIA symptoms return ??? New problems with speech, vision, walking, or weakness or numbness of the face or on 1 side of the body ??? Severe headache, fainting spell, dizziness, or seizure Use B.E. F.A.S.T. to help you remember the symptoms of a stroke: ??? B for balance. Sudden loss of balance or coordination. ??? E for eyes. Vision changes in 1 or both eyes. ??? F for face drooping. Drooping or numbness on 1 side of face. This may be more noticeable when you ask the affected person to smile. ??? A for arm weakness or numbness. The affected person may have trouble using or lifting 1 side. ??? S for speech difficulty. Speech may be slurred or hard to understand. The affected person may also use the wrong words. ??? T for time to call 911. Timeis critical in treating a stroke. Call 911 as soon as you suspect a stroke has happened???even a small one. The sooner treatment is started the better, even if the symptoms go away. ?? Last Reviewed Date: 2024 00:00:00 ?? 8033-9279 [employer]. All rights reserved. This information is not intended as a substitute for professional medical care. Always follow your healthcare professional's instructions. ?? * Delilah Hdz MD: PERFORM Event Display: Patient Education Leaflets Authored Date: [id number] Transient Ischemic Attack ?? Transient Ischemic Attack - Video A transient ischemic attack (TIA), also called a ministroke stroke, causes symptoms similar to those of a stroke. The difference is that TIAs don???t cause permanent brain damage. This video explainswhat happens during a TIA, what you should do if you have symptoms, and what treatment is available. To view the video go to this web address: https://bit.[email or web address] Or, scan this QR code with your smart phone Last Reviewed Date: 2020 00:00:00 ?? 6162-0442 [employer]. All rights reserved. This information is not intended as a substitute for professional medical care. Always follow your healthcare professional's instructions. ?? Patient Care team information Care Team Personnel Name: Gregg Todd MD Position: Reference Physician Member Role: PCP Address: [address] [place] [address] [address] Telecom: Care Team Related Persons Name: STARZARINA Name: NIC LEACH Insurance Providers Guarantor name: LICHA LEACH Health Plan Information #: 1 Payer: [employer] Payer Identifier: ABIGAIL Member Number: [id number] Group Number: [id number] Subscriber Identifier: [id number] Relationship to Subscriber: self Coverage Type: Medicare HMO Coverage Verification Date: NA Telecom: NA Address: Health Plan Information #: 2 [facility] Payer Identifier: NA Member Number: [id number] Group Number: NA Subscriber Identifier: [id number] Relationship to Subscriber: self Coverage Type: MEDICAID Coverage Verification Date: NA Telecom: NA Address:
--- NOTE | ~2025-06-13 | CT_ITS ---
EXAMINATION: CT ABDOMEN PELVIS WITH IV CONTRAST HISTORY: R19.00 - Intra-abdominal and pelvic swelling, mass and lump, unspecified... COMPARISON: There are no prior studies for available comparison. TECHNIQUE: CT scan of the abdomen and pelvis was performed following administration of 85 mL Omnipaque 350 using standard departmental protocol. Coronal and sagittal reformatted images were generated and reviewed. Oral contrast material was not administered at the request of the referring physician. This CT exam was performed with one or more of the following dose reduction techniques: automated exposure control, adjustment of the mA and/or kV according to patient size, use of iterative reconstruction technique. DLP: 518 mGy-cm FINDINGS: LOWER CHEST: The visualized lung bases are clear. There is no pleural effusion. CARDIOVASCULATURE: The heart is normal in size. There is no pericardial effusion. LIVER: The liver is normal in size and contour. There is a 1.2 cm hypodensity in the left lobe of the liver which is too small to accurately characterize. There is a probable tiny cyst at the dome of the right lobe. The hepatic and portal veins are patent. GALLBLADDER / BILE DUCTS: The gallbladder is unremarkable. There is no intra or extrahepatic biliary ductal dilatation. SPLEEN: The spleen is normal in size. No focal splenic lesion is identified. PANCREAS: The pancreas is unremarkable in appearance. ADRENAL GLANDS: Within normal limits. KIDNEYS/RETROPERITONEUM: No renal calculi are identified. There is no hydronephrosis. There is a probable 5 mm cyst at the upper pole of the right kidney. LYMPH NODES: No abdominal or pelvic lymphadenopathy. VASCULATURE: The abdominal aorta is normal in caliber. MESENTERY/PERITONEUM: No free fluid. No masses. There is no free intraperitoneal gas. STOMACH: The stomach is collapsed, limiting evaluation. SMALL BOWEL: The small bowel is normal in caliber. COLON: There is a large amount of stool throughout the colon. APPENDIX: Normal. URINARY BLADDER/PELVIC ORGANS: The urinary bladder is collapsed, limiting evaluation. The prostate is normal in size. BONES / SOFT TISSUES: There are small fat-containing bilateral inguinal hernias. The patient is status post posterior fusion of L2-S1 with pedicle screws, spinal stabilization rods, and intervertebral spacers. CT/CT abdomen pelvis w IV con IMPRESSION: 1. Large amount of stool throughout the colon. 2. 1.2 cm nonspecific hypodensity in the left lobe of the liver. 3. Small bilateral fat-containing inguinal hernias. Electronically signed by: Aden Rivero MD 06/13/2025 02:39 PM EST
[2025-06-13] MEDS: iohexoL 350 MG/ML 100 ML INFUS..BTL 85 ML IV (14:31)
[2025-06-13 14:55] LABS: Creatinine POC 1.2 mg/dL (0.5-1.4); GFR POC > 60
--- OUTSIDE RECORDS SUMMARY | 2025-06-13 16:21 | XMS_ITS | Data Portability ---
Author Organization [place] - [facility], Allergy Address [address] [address] Care Team Providers Care Pasting Machine Offbearer Name Role Phone HARIKA HOLLINS Primary Care [...] (0.03 %) nasal spray 2024 025 [id number] [facility] #[id number], [address] [place], [address], 10/12/2024 11:09:37 Patient TargetsNo targets recorded. Patient Instructions Encounter Date Encounter Id Patient Instructions Last Modified By Organization Details Last Modified Time 07/11/2024 [id number] Note patient with chronic nasal obstruction for at least 1 year. He has been using cokl-cvg-ktfbbgc decongestant preparations several times per day. Examination shows a septal deviation of the right side limiting endoscopy but no evidence of polyps. Suggest warm saline irrigations twice daily followed by ipratropium bromide 2 sprays each nostril 3 times daily. I will have him dilute the oxymetazoline or which ever wcdo-ptv-fbacxzh decongestant preparation he is using 50% every [...] contr ast No observ ation record ed. TRABUCO CANYON [facility] [address] [facility] [address], [place], [address], 08/17/2024 20:00:18 10/13/19 audio gram No observ ation record ed. BARCODE Not Available 2024 12:44:59 Result Notes None recorded. Problems Name Problem SNOMED Code Status Onset Date Resolution Date Notes Provider Name and Address Organization Details Recorded Time Bilateral tinnitus 48538473517 02 Active 2021 Tinnitus, bilateral ; Note: Date Diagnosed : 02/03/2022 3:11 PM (H93.13) Not Available [facility] 4 02:53:58 Disorder of smell 769858581 Active 2021 Other disturban kris of smell and taste; Note: Date Diagnosed : 02/03/2022 3:11 PM (R43.8) Not Available [facility] 4 02:54:02 Disorder of taste 011472662 Active 2021 Other disturban kris of smell and taste; Note: Date Diagnosed : 02/03/2022 3:11 PM (R43.8) Not Available [facility] 4 02:54:02 Sensorine ural hearing loss of bilateral ears 148265354 Active 2021 Sensorine ural hearing loss, bilateral ; Note: Date Diagnosed : 02/03/2022 3:11 PM (H90.3) Not Available [facility] 4 02:54:01 Deviated nasal septum 929517456 Active 2024 RIC ALBARADO MD [address] [place] [address], [place], [address] , [facility] - [facility] 5 11:16:48 Chronic rhinitis 41304781 Active 2024 RIC ALBARADO MD [address], [place], [address] , [facility] 5 14:49:12 Vasomotor rhinitis 9674096 Active 2024 RIC ALBARADO MD [address], [place], [address] , [facility] - [facility] 5 14:49:16 Chronic sinusitis 02098582 Active 2024 RIC ALBARADO MD [address], [place], [place], [address] , [facility] 5 09:02:12 Nasal congestio n 49784254 Active 2024 RIC ALBARADO MD [address] [facility] [address] [place],[address], [place], [address] , [facility] 11:16:52 Problem Notes None recorded. Procedures Surgical History Date Name Laterality Status Provider Name and Address Organization Details Recorded Time Air & Speech Audio with Tymps - 43269, 14149 & 95793 completed LATESHA SÁNCHEZ MA, CCC-A [address] [facility], [place], [address], [facility] 10/12/2024 11:00:09 JMSNasal/Sinus Endoscopy completed RIC CUTLER MD [address] [facility], [place], [address], [facility] 07/11/2024 14:48:02 Imaging Results None recorded. Procedure [...] mg tablet 07/07 completed Medicati on ID: [id number] B rand Name: methocar bamol Se nd [...] mg tablet 07/07 completed Medicati on ID: [id number] B rand Name: meloxica m Send Method: E-Prescr ibed Sub s Allowed: subs OK [facility] meloxica m Not Available [...] mg tablet 10/12 completed Medicati on ID: [id number] B rand Name: hydrocod one-acet aminophe n Send Method: E-Prescr ibed Sub s Allowed: subs OK [facility] : hydrocod one-acet aminophe n [...] mg tablet 10/12 completed Medicati on ID: [id number] B rand Name: hydroxyz ine HCl Send Method: E-Prescr ibed Sub s Allowed: subs OK [facility] : hydroxyz ine HCl Not [...] Updated DateTime 07/11/2024 177.8 cm 28 kg/m2 18942.51 g Lea Sierra [facility] 07/11/2024 14:38:46 Date Recorded Body height Body mass index (BMI) Body weight Systolic And Diastolic Provider Name and Address Organization Details Last Updated DateTime 10/12/2024 177.8 cm 28 kg/m2 44156.51 g 122/74 mm[Hg] Beatrice Lynn [facility] 10/12/2024 11:08:18 Social History None recorded. Functional Status None recorded. Mental Status None recorded. Family History Nothing Reported. Medical History Condition Response Allergies/Hayfever N Heart Problems N Anxiety Y Tonsil Infections N Emphysema N Migraines N Thyroid Problems N COPD N Depression Y Developmental Delay N Glaucoma N Nasal or Sinus Problems Y Anemia N Immune System Disorder N Anesthesia Complications N Heart Attack (NE) N Other Skin Condition N Diabetes N [...] ICD10 Code Diagnosis IMO Codes Diagnosis Note [id number] RIC ALBARADO MD [facility] [address] [facility] [place] [address] 07/11/2024 14:12:51 07/11/2024 14:52:00 Deviated nasal septum 057198061 J34.2 Chronic rhinitis 8809073 6 J31.0 Bilateral tinnitus 32312 81457 102 H93.13 f/u with Audio [id number] RIC ALBARADO MD [facility] [address] [facility] [place] [address] 10/12/2024 10:19:45 10/12/2024 11:22:10 Bilateral tinnitus 0572151116 102 H93.13 f/u with Audio in 1 year Sensorineu ral hearing loss of bilateral ears 001998183 H90.3 Hearing stable Deviated nasal septum 12 6904181 J34.2 88262 Nasal congestion 7756821 0 R09.81 87825 At the present time the patient would [...] Member ID Guarantor Name 10/12/2024 1 [facility] - MEDICARE PREFERRED (MEDICARE REPLACEMENT HMO) [facility] Roni Willson [id number] Roni Willson 10/12/2024 2 [place]: [facility] Roni Willson [id number] Roni Willson Notes Date Note Type Note [...] day or more. RIC CUTLER MD [address] [facility],[address], [address], [facility] 07/11/2024 14:51:18 10/12/2024 text/html Patient notes persistent chronic nasal congestion. He has been off the ylgt-xer-gzdhdpo decongestant preparations. CT scan did not show any significant sinus disease. He feels the nasal congestion is not bad enough to warrant any intervention. He still notes bilateral tinnitus but hearing is stable. RIC CUTLER MD [address] [facility],[place] [address], [place], [address], [facility] 10/12/2024 11:17:38
--- OUTSIDE RECORDS SUMMARY | 2025-06-13 16:21 | XMS_ITS | Clinical Summary ---
Author Organization [facility], Address [address] [address] Phone Care Team Providers Care Toilet And Laundry Soap Supervisor Name Role Phone Gregg Todd MD Primary Care Provider [phone] Allergies No known active allergies Medications traMADol [...] Plan: Mr. Willson is being followed at [facility] by Dr. Carreno where he [...] 08/15/2016 Influenza Vaccine (#1) 2025 04/22/2021 Insurance [facility] Member Subscriber Plan / Payer (Ef fective 2023-Present) Name:Roni Willson Relation to Subscriber:Self Name:Roni Willson Payer ID:[id number] (NAIC) Group ID:[id number] Type:Not on file Address: [address] [id number] Medicaid [place] Care Teams Toilet And Laundry Soap Supervisor Relationship Specialty Start Date End Date Gregg Todd MD [address] [place] [id number] PCP - General Internal Medicine 01/11/25
--- OUTSIDE RECORDS SUMMARY | 2025-06-13 16:21 | XMS_ITS | Encounter Summary ---
Author Organization [facility], Address [address] [place] [address] Phone Care Team Providers Care Purchasing Buyer Name Role Phone Gregg Todd MD Primary Care Provider [phone] Encounter Details Date Type Department Care Team (Late st Contact Info) Description 01/16/2025 Orders Only [facility] - [facility] [address] [place] [phone] Melissa Portillo [address] [place] [phone] Social History Tobacco Use Types Packs/Day Years [...] on filedocumented in this encounter Care Teams Purchasing Buyer Relationship Specialty Start Date End Date Gregg Todd MD [address] [place] [phone] PCP - General Internal Medicine 01/11/25 documented as of this encounter
--- OUTSIDE RECORDS SUMMARY | 2025-06-13 16:21 | XMS_ITS | Clinical Summary ---
Author Organization [facility] Prior to 11/12/[address] [place] [address] Care Team Providers Care Template Clerk Name Role Phone Gregg Todd MD Primary [...] age to complete this topic Care Teams Template Clerk Relationship Specialty Start Date End Date Gregg Todd MD PCP - General Internal Medicine 06/29/23
--- OUTSIDE RECORDS SUMMARY | 2025-06-13 16:22 | XMS_ITS | Data Portability ---
Author Organization RANDALL CARRERA MD [facility], Main Office Address [address] [place] [address] Assessment No assessment recorded. Plan of Treatment Reminders Order Date Submit Date Provider Last Modified By Organization Details Last Modified Time Details Appointments B20 FOLLOW UP 2025 02:00P Bret Metz MD Not available Not available Not available Lab CBC w/ diff 2024 025 [email or web address], [address] [place] [address], [address], 06/02/2025 08:54:25 HIV-1 RNA, quantita tive, PCR, serum or plasma 2024 025 [email or web address], [address] [place] [address], 63478, 06/02/2025 08:54:26 RPR (rapid plasma reagin), serum 2024 025 [email or web address], [address] [place] [address], 25896, 06/02/2025 08:54:26 T-cell regulato ry subsets panel, blood 2024 025 [email or web address], [address] [place] [address], 19650, 06/02/2025 08:54:26 creatini ne w/ estimate d GFR (eGFR), serum or plasma 2024 025 [email or web address], [address] [place] [address], 18617, 06/02/2025 08:54:26 AST/SGOT (asparta te aminotra nsferase ), serum or plasma [address] [place], [place] [id number], [address] [place] [address], 14286, 06/02/2025 08:54:26 ALT (alanine aminotra nsferase ), serum or plasma [address] [place], [place] [address], [address] [place] [address], 78456, 06/02/2025 08:54:26 PSA, total + free, serum or plasma [address] [place], [place] [address], [address] [place] [address], 375[address], 06/02/2025 08:54:26 CBC w/ diff [address] [place], [place] [address], [address] [place] [address], 15759, 03/01/2025 12:45:04 HIV-1 RNA, quantita tive, PCR, serum or plasma [address] [place], [place] [address] [facility], [address] [place] [address], 18[address], 03/01/2025 12:45:04 RPR (rapid plasma reagin), serum [address] [place], [place] [address], [address] [place] [address], 75540, 03/01/2025 12:45:04 T-cell regulato ry subsets panel, blood [address] [place], [place] [id number], [address] [place] [address], 29633, 03/01/2025 12:45:04 creatini ne w/ estimate d GFR (eGFR), serum or plasma 2024 025 [facility], [address] [facility], [place] [address], [place], [address], 03/01/2025 12:45:04 AST/SGOT (asparta te aminotra nsferase ), serum or plasma 2024 025 [facility], [address] [facility], [facility] [address], [place], [address], 03/01/2025 12:45:04 ALT (alanine aminotra nsferase ), serum or plasma 2024 025 [facility], [address] [facility], [facility] [address], [place], [address], 03/01/2025 12:45:04 CBC w/ diff 2024 025 [facility], [address] [facility], [place] [address], [place], [address], 11/29/2024 10:07:15 HIV-1 RNA, quantita tive, PCR, serum or plasma 2024 025 [facility], [address] [facility], [facility] [address], [place], [address], 11/29/2024 10:07:16 RPR (rapid plasma reagin), serum [address] [place], [place] [address] [facility], [address] [facility], [place] [address], [place], [address], 11/29/2024 10:07:16 T-cell regulato ry subsets panel, blood 2024 025 [facility], [address] [facility], [facility] [address], [place], [address], 11/29/2024 10:07:16 creatini ne w/ estimate d GFR (eGFR), serum or plasma 2024 025 [facility], [address] [facility], [facility] [address], [place], [address], 11/29/2024 10:07:16 AST/SGOT (asparta te aminotra nsferase ), serum or plasma 2024 025 [facility], [address], [address], 11/29/2024 10:07:16 ALT (alanine aminotra nsferase ), serum or plasma 2024 025 [facility], [address] [facility] [address], [place], [address], 11/29/2024 10:07:16 CMP, serum or plasma 2024 025 [email or web address], [address], [address], 08/23/2024 12:07:12 lipid panel, serum 2024 025 [facility], [address], [address], 09/02/2024 12:33:08 amylase + lipase, serum 2024 025 [facility], [address], [address], 09/02/2024 12:33:08 TSH, serum or plasma 2024 025 [facility], [address], [address], 09/02/2024 12:33:08 HbA1c (hemoglo bin A1c), blood 2024 025 [email or web address], [address], [address], 09/02/2024 12:33:08 CBC w/ diff 2024 025 [email or web address], [address], [address], 09/02/2024 12:33:07 HIV-1 RNA, quantita tive, PCR, serum or plasma 2024 025 [place] [address] [employer] [facility], [address] [place] [address], 77[address], 09/02/2024 12:33:07 RPR (rapid plasma reagin), serum 2024 025 [place] [address] [employer] [facility], [address] [place] [address], 49[address], 09/02/2024 12:33:08 T-cell regulato ry subsets panel, blood 2024 025 [place] [address] [employer] [facility], [address] [place] [address], 30198, 09/02/2024 12:33:08 HBsAg (hepatit is B surface Ag), serum 2024 025 [place] [address] [employer] [facility], [address] [place] [address], 13[address], 09/02/2024 12:33:08 CBC w/ diff 2023 024 [facility], [address] [place] [address], 57[address], 05/20/2024 13:41:28 ALT (alanine aminotra nsferase ), serum or plasma 2023 024 [facility], [address] [place] [address], 10[address], 05/20/2024 13:41:28 AST/SGOT (asparta te aminotra nsferase ), serum or plasma 2023 024 [facility], [address] [place] [address], 67[address], 05/20/2024 13:41:29 CT + NG DNA, PCR, unspecif ied specimen 2023 024 [email or web address], [address] [place] [address], 73135, 05/20/2024 13:41:29 creatini ne w/ estimate d GFR (eGFR), serum or plasma 2023 024 [facility], [address] [facility], [facility] [address], [place], [address], 05/20/2024 13:41:29 hepatiti s C virus Ab, serum 2023 [facility], [address] [facility], [facility] [address], [place], [address], 05/20/2024 13:41:29 HIV-1 RNA, quantita tive, PCR, serum or plasma 2023 024 [facility], [address] [facility], [facility] [address], [place], [address], 05/20/2024 13:41:29 RPR (rapid plasma reagin), serum 2023 024 [facility], [address] [facility], [facility] [address], [place], [address], 05/20/2024 13:41:29 T-cell regulato ry subsets panel, blood 2023 024 [facility], [address] [facility], [facility] [address], [place], [address], 05/20/2024 13:41:29 HBsAg (hepatit is B surface Ag), serum 2023 024 [facility], [address] [facility], [facility] [address], [place], [address], 05/20/2024 13:41:29 Referral None recorded . Procedures None recorded . Surgeries None recorded . Imaging None recorded . Medication Orders Voltaren Arthriti s Pain 1 % topical gel 2024 025 [facility] #[id number], [address] [place], [address], 05/24/2025 16:38:13 mupiroci n 2 % topical ointment 2024 025 [facility] [address] [place] [address], [address], 05/24/2025 16:38:13 doxycycl ine monohydr ate 100 mg capsule 2024 025 [facility] [address] [place] [address], [address], 05/24/2025 16:40:24 fluconaz ole 100 mg tablet 2024 025 [facility] [address] [place] [address], 535[address], 05/24/2025 16:38:12 hydroxyz ine HCl 50 mg tablet 2024 025 [facility] [address] [place] [address], 25[address], 05/24/2025 16:38:12 Biktarvy 50 mg-200 mg-25 mg tablet 2024 025 [facility] [address] [place] [address], 838[address], 05/24/2025 16:38:13 mupiroci n 2 % topical ointment 2024 025 [facility] [address] [place], [address], 02/22/2025 14:42:30 hydroxyz ine HCl 50 mg tablet 2024 025 [facility] #0969, [address] [place], [address], 02/22/2025 14:42:01 Biktarvy 50 mg-200 mg-25 mg tablet 2024 025 [facility] #0969, [address] [place] [address], 400[address], 02/22/2025 14:42:01 Biktarvy 50 mg-200 mg-25 mg tablet 2024 025 [facility] [address] [place], [address], 11/22/2024 14:40:20 Biktarvy 50 mg-200 mg-25 mg tablet 2024 025 [facility] [address] [place], [address], 08/22/2024 15:14:58 hydroxyz ine HCl 25 mg tablet 2023 024 [facility] [address] [place], [address], 05/13/2024 15:11:54 Biktarvy 50 mg-200 mg-25 mg tablet 2023 024 [facility] [address] [place], [address], 05/13/2024 15:09:21 mupiroci n 2 % topical ointment 2023 024 [email or web address] [address] [place], [address], 05/30/2024 22:28:26 Patient TargetsNo targets recorded. Patient InstructionsNo instructions recorded. Reason for Referral None Reported. Results Created Date Observation Date Name Description Value Unit Range Abnormal Flag Note LastModifiedBy Organization Detail LastModifiedTime 08/24/1908/23/2024 CBC WITH AUTO DIFFE RENTI AL WBC 5.7 K/mcL 4.8-10 .8 Not Available [facility] [address] [place] [address], 284[address], 08/23/2024 11:08:03 08/24/19 25 08/23/2024 CBC WITH AUTO DIFFE RENTI AL RBC 4.90 M/mcL 4.50-5 .50 Not Available [facility] [address] [place], [address], 08/23/2024 11:08:03 08/24/19 25 08/23/2024 CBC WITH AUTO DIFFE RENTI AL hemoglobin 14.8 g/dL 13.5-1 7.5 Not Available [facility] [address] [place], [address], 08/23/2024 11:08:03 08/24/19 25 08/23/2024 CBC WITH AUTO DIFFE RENTI AL hematocrit 44.7 % 42.0-5 4.0 Not Available [facility] [address] [place], [address], 08/23/2024 11:08:03 08/24/19 25 08/23/2024 CBC WITH AUTO DIFFE RENTI AL MCV 92.2 fL 79.0-9 8.0 Not Available [facility] [address] [place], [address], 08/23/2024 11:08:03 08/24/19 25 08/23/2024 CBC WITH AUTO DIFFE RENTI AL MCH 30.5 pcg 27.0-3 2.0 Not Available [facility] [address] [place], [address], 08/23/2024 11:08:03 08/24/19 25 08/23/2024 CBC WITH AUTO DIFFE RENTI AL MCHC 33.1 g/dL 32.0-3 7.0 Not Available [facility] [address] [place], [address], 08/23/2024 11:08:03 08/24/19 25 08/23/2024 CBC WITH AUTO DIFFE RENTI AL RDW 13.4 % 11.0-1 5.0 Not Available [facility] [address] [place], [address], 08/23/2024 11:08:03 08/24/19 25 08/23/2024 CBC WITH AUTO DIFFE RENTI AL platelets 222 K/mcL 130-40 0 Not Available [facility] [address] [place], [address], 08/23/2024 11:08:03 08/24/19 25 08/23/2024 CBC WITH AUTO DIFFE RENTI AL MPV 10.9 fL 7.0-11 .0 Not Available [facility] [address] [place], [address], 08/23/2024 11:08:03 08/24/19 25 08/23/2024 CBC WITH AUTO DIFFE RENTI AL NRBC 0.0 % <1.0 Not Available [facility] [address] [place], [address], 08/23/2024 11:08:03 08/24/19 25 08/23/2024 CBC WITH AUTO DIFFE RENTI AL NRBC absolute 0.00 K/mcL <0.10 Not Available [facility] [address] [place], [address], 08/23/2024 11:08:03 08/24/19 25 08/23/2024 CBC WITH AUTO DIFFE RENTI AL neutrophils relative 63.0 % Not Available [facility] [address] [place], [address], 08/23/2024 11:08:03 08/24/19 25 08/23/2024 CBC WITH AUTO DIFFE RENTI AL lymphocytes relative 26.1 % Not Available [facility] [address] [place], [address], 08/23/2024 11:08:03 08/24/19 25 08/23/2024 CBC WITH AUTO DIFFE RENTI AL monocytes relative 7.5 % Not Available [facility] [address] [place], [address], 08/23/2024 11:08:03 08/24/19 25 08/23/2024 CBC WITH AUTO DIFFE RENTI AL eosinophils relative 2.4 % Not Available [facility] [address] [place], [address], 08/23/2024 11:08:03 08/24/19 25 08/23/2024 CBC WITH AUTO DIFFE RENTI AL basophils relative 0.5 % Not Available [facility] [address] [place], [address], 08/23/2024 11:08:03 08/24/19 25 08/23/2024 CBC WITH AUTO DIFFE RENTI AL immature granulocytes relative 0.5 % Not Available [facility] [address] [place], [address], 08/23/2024 11:08:03 08/24/19 25 08/23/2024 CBC WITH AUTO DIFFE RENTI AL neutrophils absolute 3.61 K/mcL 1.50-7 .00 Not Available [facility] [address] [place], [address], 08/23/2024 11:08:03 08/24/19 25 08/23/2024 CBC WITH AUTO DIFFE RENTI AL lymphocytes absolute 1.50 K/mcL 1.00-5 .00 Not Available [facility] [address] [place], [address], 08/23/2024 11:08:03 08/24/19 25 08/23/2024 CBC WITH AUTO DIFFE RENTI AL monocytes absolute 0.43 K/mcL 0.20-1 .00 Not Available [facility] [address] [place], [address], 08/23/2024 11:08:03 08/24/19 25 08/23/2024 CBC WITH AUTO DIFFE RENTI AL eosinophils absolute 0.14 K/mcL 0.00-0 .50 Not Available [facility] [address] [place], [address], 08/23/2024 11:08:03 08/24/19 25 08/23/2024 CBC WITH AUTO DIFFE RENTI AL basophils absolute 0.03 K/mcL 0.00-0 .20 Not Available [facility] [address] [place], [address], 08/23/2024 11:08:03 08/24/19 25 08/23/2024 CBC WITH AUTO DIFFE RENTI AL immature granulocytes absolute 0.03 K/mcL 0.00-0 .03 Not Available [facility] [address] [place], [address], 08/23/2024 11:08:03 08/24/19 25 08/23/2024 CBC WITH AUTO DIFFE RENTI AL note See Report [facility], [address] [facility], [place], [place] [address] Not Available [facility] [address] [place], [address], 08/23/2024 11:08:03 08/24/19 25 08/23/2024 AMYLA SE amylase 211 unit/ L 25-115 high Not Available [facility] [address] [place], [address], 08/23/2024 11:25:05 08/24/19 25 08/23/2024 AMYLA SE note See Report high [facility], [address] [facility], [place], [place] [address] Not Available [facility] [address] [place], [address], 08/23/2024 11:25:05 08/24/19 25 08/23/2024 LIPID PANEL WITH REFLE X TO DIREC T LDL cholesterol 210 mg/dL 0-200 high Not Available [facility] [address] [place], [address], 08/23/2024 11:26:05 08/24/19 25 08/23/2024 LIPID PANEL WITH REFLE X TO DIREC T LDL triglyceride s 154 mg/dL 0-150 high Not Available [facility] [address] [place], [address], 08/23/2024 11:26:05 08/24/19 25 08/23/2024 LIPID PANEL WITH REFLE X TO DIREC T LDL HDL 58 mg/dL >=40 Not Available [facility] [address] [place], [address], 08/23/2024 11:26:05 08/24/19 25 08/23/2024 LIPID PANEL WITH REFLE X TO DIREC T LDL LDL calculated 121 mg/dL 0-100 high Not Available [facility] [address] [place], [address], 08/23/2024 11:26:05 08/24/19 25 08/23/2024 LIPID PANEL WITH REFLE X TO DIREC T LDL VLDL cholesterol aj 30.8 mg/dL Not Available [facility] [address] [place], [address], 08/23/2024 11:26:05 08/24/19 25 08/23/2024 LIPID PANEL WITH REFLE X TO DIREC T LDL non HDL chol. (LDL+VLDL) 152 mg/dL <145 high Not Available [facility] [address] [place], [address], 08/23/2024 11:26:05 08/24/19 25 08/23/2024 LIPID PANEL WITH REFLE X TO DIREC T LDL chol/HDL ratio 3.6 0.0-4. 4 Not Available [facility] [address] [place], [address], 08/23/2024 11:26:05 08/24/19 25 08/23/2024 LIPID PANEL WITH REFLE X TO DIREC T LDL note See Report [facility], [address] [facility], [facility], [facility] [place] [address] Not Available [facility] [address] [place], [address], 08/23/2024 11:26:05 08/24/19 25 08/23/2024 THYRO ID STIMU LATIN G HORMO NE TSH 2.20 mciu/ mL 0.40-4 .00 Not Available [facility] [address] [place], [address], 08/23/2024 11:39:03 08/24/19 25 08/23/2024 THYRO ID STIMU LATIN G HORMO NE note See Report [facility], [address] [facility], [facility], [facility] [place] [address] Not Available [facility] [address] [place], [address], 08/23/2024 11:39:03 08/24/19 25 08/23/2024 LIPAS E lipase 411 unit/ L 13-75 high Not Available [facility] [address] [place] [address], [address], 08/23/2024 11:45:04 08/24/19 25 08/23/2024 LIPAS E note See Report high [facility], [address] [facility], [address], [facility] [address] Not Available [facility] [address] [place], [address], 08/23/2024 11:45:04 08/24/19 25 08/23/2024 HEPAT ITIS B SURFA CE ANTIG EN WITH REFLE X TO CONFI RMATI ON hepatitis B surface Ag Negati ve negati ve Not Available [facility] [address] [place] [address], [address], 08/23/2024 11:50:07 08/24/19 25 08/23/2024 HEPAT ITIS B SURFA CE ANTIG EN WITH REFLE X TO CONFI RMATI ON note See Report [facility], [address] [facility], [address], [facility] [place] [address] Not Available [facility] [address] [place] [address], [address], 08/23/2024 11:50:07 08/24/19 25 08/23/2024 TREPO NEMA PALLI DUM ANTIB BRENDAN WITH REFLE X TO RPR AND PARTI KENA AGGLU TINAT ION T. pallidum antibodies Negati ve negati ve Not Available [facility] [address] [place], [address], 08/23/2024 11:52:07 08/24/19 25 08/23/2024 TREPO NEMA PALLI DUM ANTIB BRENDAN WITH REFLE X TO RPR AND PARTI KENA AGGLU TINAT ION note See Report [facility], [address] [facility], [address], [facility] [place] [address] Not Available [facility] [address] [place], [address], 08/23/2024 11:52:07 08/24/19 25 08/23/2024 COMPR EHENS SANDY METAB OLIC PANEL sodium 139 mmol/ L 133-14 5 Not Available [facility] [address] [place], [address], 08/23/2024 12:07:12 08/24/19 25 08/23/2024 COMPR EHENS SANDY METAB OLIC PANEL potassium 4.9 mmol/ L 3.5-5. 5 Not Available [facility] [address] [place], [address], 08/23/2024 12:07:12 08/24/19 25 08/23/2024 COMPR EHENS SANDY METAB OLIC PANEL chloride 106 mmol/ L 96-110 Not Available [facility] [address] [place], [address], 08/23/2024 12:07:12 08/24/19 25 08/23/2024 COMPR EHENS SANDY METAB OLIC PANEL CO2 29 mmol/ L 21-32 Not Available [facility] [address] [place], [address], 08/23/2024 12:07:12 08/24/1908/23/2024 COMPR EHENS SANDY METAB OLIC PANEL anion gap 4 3-11 Not Available [facility] [address] [place], [address], 08/23/2024 12:07:12 08/24/1908/23/2024 COMPR EHENS SANDY METAB OLIC PANEL glucose 92 mg/dL 70-100 Not Available [facility] [address] [place], [address], 08/23/2024 12:07:12 08/24/19 25 08/23/2024 COMPR EHENS SANDY METAB OLIC PANEL BUN 20 mg/dL 5-25 Not Available [facility] [address] [place], [address], 08/23/2024 12:07:12 08/24/19 25 08/23/2024 COMPR EHENS SANDY METAB OLIC PANEL creatinine 1.19 mg/dL 0.70-1 .30 Not Available [facility] [address] [place], [address], 08/23/2024 12:07:12 08/24/19 25 08/23/2024 COMPR EHENS SANDY METAB OLIC PANEL eGFR 70 mL/mi n/1.7 3m2 >=60 Calcu latio n based on the Chron ic Kidne y Disea se Epide miolo gy Colla borat ion (CKD- EPI) equat ion refit witho ut adjus tment for race. Not Available [facility] [address] [place], [address], 08/23/2024 12:07:12 08/24/1908/23/2024 COMPR EHENS SANDY METAB OLIC PANEL BUN/creatini ne ratio 16.8 Not Available [facility] [address] [place], [address], 08/23/2024 12:07:12 08/24/19 25 08/23/2024 COMPR EHENS SANDY METAB OLIC PANEL calcium 9.2 mg/dL 8.5-10 .5 Not Available [facility] [address] [place], [address], 08/23/2024 12:07:12 08/24/19 25 08/23/2024 COMPR EHENS SANDY METAB OLIC PANEL AST (SGOT) 13 unit/ L 10-42 Not Available [facility] [address] [place], [address], 08/23/2024 12:07:12 08/24/19 25 08/23/2024 COMPR EHENS SANDY METAB OLIC PANEL ALT (SGPT) 46 unit/ L 10-60 Not Available [facility] [address] [place], [address], 08/23/2024 12:07:12 08/24/19 25 08/23/2024 COMPR EHENS SANDY METAB OLIC PANEL alkaline phosphatase 96 unit/ L 42-121 Not Available [facility] [address] [place], [address], 08/23/2024 12:07:12 08/24/19 25 08/23/2024 COMPR EHENS SANDY METAB OLIC PANEL total protein 7.0 g/dL 6.0-8. 0 Not Available [facility] [address] [place] [address], [address], 08/23/2024 12:07:12 08/24/19 25 08/23/2024 COMPR EHENS SANDY METAB OLIC PANEL albumin 3.8 g/dL 3.2-5. 0 Not Available [facility] [address] [place] [address], [address], 08/23/2024 12:07:12 08/24/19 25 08/23/2024 COMPR EHENS SANDY METAB OLIC PANEL total bilirubin 0.7 mg/dL 0.0-1. 4 Not Available [facility] [address] [place] [address], [address], 08/23/2024 12:07:12 08/24/19 25 08/23/2024 COMPR EHENS SANDY METAB OLIC PANEL note See Report [facility], [address] [place] [address], [address], [place] [address] Not Available [facility] [address] [place] [address], [address], 08/23/2024 12:07:12 08/24/19 25 08/23/2024 HIV 1 MOLEC ULAR STUDY QUANT ITATI VE HIV-1 RNA interpretati on Detect ed not detect ed abnormal Not Available [facility] [address] [place] [address], [address], 08/23/2024 15:03:28 08/24/19 25 08/23/2024 HIV 1 MOLEC ULAR STUDY QUANT ITATI VE HIV-1 RNA copies < copie s/mL <20 HIV RNA detec karen but below the limit of quant itati on. Unabl e to repor t quant itati ve resul ts <20 copie s/mL. Not Available [facility] [address] [place] [address], [address], 08/23/2024 15:03:28 08/24/19 25 08/23/2024 HIV 1 MOLEC ULAR STUDY QUANT ITATI VE HIV-1 RNA log < log_1 0_cop ies/m L <1.30 Not Available [facility] [address] [place] [address], [address], 08/23/2024 15:03:28 08/24/19 25 08/23/2024 HIV 1 MOLEC ULAR STUDY QUANT ITATI VE note See Report [facility], [address] [facility], [place]enna gfiel d, [place] [address] Not Available [facility] [address] [place] [address], [address], 08/23/2024 15:03:28 08/24/19 25 08/23/2024 LYMPH OCYTE T-KATIA L PANEL cd4 671 cells /mcL 426-17 76 Not Available [facility] [address] [place] [address], [address], 08/25/2024 07:04:36 08/24/19 25 08/23/2024 LYMPH OCYTE T-KATIA L PANEL cd8 300 cells /mcL 161-83 8 Not Available [facility] [address] [place] [address], [address], 08/25/2024 07:04:36 08/24/19 25 08/23/2024 LYMPH OCYTE T-KATIA L PANEL cd4/cd8 ratio 2.24 0.90-4 .90 Not Available [facility] [address] [place] [address], [address], 08/25/2024 07:04:36 08/24/19 25 08/23/2024 LYMPH OCYTE T-KATIA L PANEL cd4 % 45 % 33-64 Not Available [facility] [address] [place] [address], [address], 08/25/2024 07:04:36 08/24/19 25 08/23/2024 LYMPH OCYTE T-KATIA L PANEL cd8 % 20 % 10-39 Not Available [facility] [address] [place] [address], [address], 08/25/2024 07:04:36 08/24/19 25 08/23/2024 LYMPH OCYTE T-KATIA L PANEL note See Report [facility], [address] [facility], [address], [place] [address] Not Available [facility] [address] [place] [address], [address], 08/25/2024 07:04:36 03/06/20 25 03/06/2025 CBC WITH AUTO DIFFE RENTI AL WBC 5.8 K/mcL 4.8-10 .8 Not Available [facility] [address] [place], [address], 03/06/2025 14:11:26 03/06/20 25 03/06/2025 CBC WITH AUTO DIFFE RENTI AL RBC 4.60 M/mcL 4.50-5 .50 Not Available [facility] [address] [place] [address], [id number], 03/06/2025 14:11:26 03/06/20 25 03/06/2025 CBC WITH AUTO DIFFE RENTI AL hemoglobin 13.6 g/dL 13.5-1 7.5 Not Available [facility] [address] [place], [id number], 03/06/2025 14:11:26 03/06/20 25 03/06/2025 CBC WITH AUTO DIFFE RENTI AL hematocrit 42.6 % 42.0-5 4.0 Not Available [facility] [address] [place], [address], 03/06/2025 14:11:26 03/06/20 25 03/06/2025 CBC WITH AUTO DIFFE RENTI AL MCV 93.4 fL 79.0-9 8.0 Not Available [facility] [address] [place], [address], 03/06/2025 14:11:26 03/06/20 25 03/06/2025 CBC WITH AUTO DIFFE RENTI AL MCH 29.8 pcg 27.0-3 2.0 Not Available [facility] [address] [place], [address], 03/06/2025 14:11:26 03/06/20 25 03/06/2025 CBC WITH AUTO DIFFE RENTI AL MCHC 31.9 g/dL 32.0-3 7.0 low Not Available [facility] [address] [place], [address], 03/06/2025 14:11:26 03/06/20 25 03/06/2025 CBC WITH AUTO DIFFE RENTI AL RDW 14.1 % 11.0-1 5.0 Not Available [facility] [address] [place], [address], 03/06/2025 14:11:26 03/06/20 25 03/06/2025 CBC WITH AUTO DIFFE RENTI AL platelets 265 K/mcL 130-40 0 Not Available [facility] [address] [place], [address], 03/06/2025 14:11:26 03/06/20 25 03/06/2025 CBC WITH AUTO DIFFE RENTI AL MPV 11.2 fL 7.0-11 .0 high Not Available [facility] [address] [place], [address], 03/06/2025 14:11:26 03/06/20 25 03/06/2025 CBC WITH AUTO DIFFE RENTI AL NRBC 0.0 % <1.0 Not Available [facility] [address] [place], [address], 03/06/2025 14:11:26 03/06/20 25 03/06/2025 CBC WITH AUTO DIFFE RENTI AL NRBC absolute 0.00 K/mcL <0.10 Not Available [facility] [address] [place], [address], 03/06/2025 14:11:26 03/06/20 25 03/06/2025 CBC WITH AUTO DIFFE RENTI AL neutrophils relative 57.4 % Not Available [facility] [address] [place], [address], 03/06/2025 14:11:26 03/06/20 25 03/06/2025 CBC WITH AUTO DIFFE RENTI AL lymphocytes relative 28.9 % Not Available [facility] [address] [place], [address], 03/06/2025 14:11:26 03/06/20 25 03/06/2025 CBC WITH AUTO DIFFE RENTI AL monocytes relative 11.2 % Not Available [facility] [address] [place], [address], 03/06/2025 14:11:26 03/06/20 25 03/06/2025 CBC WITH AUTO DIFFE RENTI AL eosinophils relative 1.7 % Not Available [facility] [address] [place], [address], 03/06/2025 14:11:26 03/06/20 25 03/06/2025 CBC WITH AUTO DIFFE RENTI AL basophils relative 0.5 % Not Available [facility] [address] [place], [address], 03/06/2025 14:11:26 03/06/20 25 03/06/2025 CBC WITH AUTO DIFFE RENTI AL immature granulocytes relative 0.3 % Not Available [facility] [address] [place], [address], 03/06/2025 14:11:26 03/06/20 25 03/06/2025 CBC WITH AUTO DIFFE RENTI AL neutrophils absolute 3.33 K/mcL 1.50-7 .00 Not Available [facility] [address] [place], [address], 03/06/2025 14:11:26 03/06/20 25 03/06/2025 CBC WITH AUTO DIFFE RENTI AL lymphocytes absolute 1.68 K/mcL 1.00-5 .00 Not Available [facility] [address] [place], [address], 03/06/2025 14:11:26 03/06/20 25 03/06/2025 CBC WITH AUTO DIFFE RENTI AL monocytes absolute 0.65 K/mcL 0.20-1 .00 Not Available [facility] [address] [place], [address], 03/06/2025 14:11:26 03/06/20 25 03/06/2025 CBC WITH AUTO DIFFE RENTI AL eosinophils absolute 0.10 K/mcL 0.00-0 .50 Not Available [facility] [address] [place], [address], 03/06/2025 14:11:26 03/06/20 25 03/06/2025 CBC WITH AUTO DIFFE RENTI AL basophils absolute 0.03 K/mcL 0.00-0 .20 Not Available [facility] [address] [place], [address], 03/06/2025 14:11:26 03/06/20 25 03/06/2025 CBC WITH AUTO DIFFE RENTI AL immature granulocytes absolute 0.02 K/mcL 0.00-0 .03 Not Available [facility] [address] [place] [address], [address], 03/06/2025 14:11:26 03/06/20 25 03/06/2025 CBC WITH AUTO DIFFE RENTI AL note See Report [facility], [address] [facility], [place] [address], [place] [address] Not Available [facility] [address] [place], [address], 03/06/2025 14:11:26 03/06/20 25 03/06/2025 TREPO NEMA PALLI DUM ANTIB BRENDAN WITH REFLE X TO RPR AND PARTI KENA AGGLU TINAT ION T. pallidum antibodies Negati ve negati ve Not Available [facility] [address] [place], [address], 03/06/2025 16:31:24 03/06/20 25 03/06/2025 TREPO NEMA PALLI DUM ANTIB BRENDAN WITH REFLE X TO RPR AND PARTI KENA AGGLU TINAT ION note See Report [facility], [address] [facility], [place] gfiel [address], [place] [address] Not Available [facility] [address] [place], [address], 03/06/2025 16:31:24 03/06/20 25 03/06/2025 HIV 1 MOLEC ULAR STUDY QUANT ITATI VE HIV-1 RNA interpretati on Detect ed not detect ed abnormal Not Available [facility] [address] [place] [address], [address], 03/07/2025 14:56:10 03/06/20 25 03/06/2025 HIV 1 MOLEC ULAR STUDY QUANT ITATI VE HIV-1 RNA copies < copie s/mL <20 HIV RNA detec karen but below the limit of quant itati on. Unabl e to repor t quant itati ve resul ts <20 copie s/mL. Not Available [facility] [address] [place] [address], [address], 03/07/2025 14:56:10 03/06/20 25 03/06/2025 HIV 1 MOLEC ULAR STUDY QUANT ITATI VE HIV-1 RNA log < log_1 0_cop ies/m L <1.30 Not Available [facility] [address] [place] [address], [address], 03/07/2025 14:56:10 03/06/20 25 03/06/2025 HIV 1 MOLEC ULAR STUDY QUANT ITATI VE note See Report [facility], [address] [place] [address], [address], [place] [id number] Not Available [facility] [address] [place] [address], [address], 03/07/2025 14:56:10 03/06/20 25 03/06/2025 LYMPH OCYTE T-KATIA L PANEL cd4 680 cells /mcL 426-17 76 Not Available [facility] [address] [place] [address], [address], 03/10/2025 09:24:47 03/06/20 25 03/06/2025 LYMPH OCYTE T-KATIA L PANEL cd8 314 cells /mcL 161-83 8 Not Available [facility] [address] [place] [address], [address], 03/10/2025 09:24:47 03/06/20 25 03/06/2025 LYMPH OCYTE T-KATIA L PANEL cd4/cd8 ratio 2.17 0.90-4 .90 Not Available [facility] [address] [place] [address], [address], 03/10/2025 09:24:47 03/06/20 25 03/06/2025 LYMPH OCYTE T-KATIA L PANEL cd4 % 48 % 33-64 Not Available [facility] [address] [place] [address], [address], 03/10/2025 09:24:47 03/06/20 25 03/06/2025 LYMPH OCYTE T-KATIA L PANEL cd8 % 22 % 10-39 Not Available [facility] [address] [place] [address], [address], 03/10/2025 09:24:47 03/06/20 25 03/06/2025 LYMPH OCYTE T-KATIA L PANEL note See Report [facility], [address] [facility], [address] [address] Not Available [facility] [address] [place] [address], [address], 03/10/2025 09:24:47 05/31/20 25 05/31/2025 CBC WITH AUTO DIFFE RENTI AL WBC 5.2 K/mcL 4.8-10 .8 Not Available [facility] [address] [place] [address], [address], 05/31/2025 18:22:16 05/31/20 25 05/31/2025 CBC WITH AUTO DIFFE RENTI AL RBC 4.80 M/mcL 4.50-5 .50 Not Available [facility] [address] [place] [address], [address], 05/31/2025 18:22:16 05/31/20 25 05/31/2025 CBC WITH AUTO DIFFE RENTI AL hemoglobin 14.1 g/dL 13.5-1 7.5 Not Available [facility] [address] [place] [address], [address], 05/31/2025 18:22:16 05/31/20 25 05/31/2025 CBC WITH AUTO DIFFE RENTI AL hematocrit 43.2 % 42.0-5 4.0 Not Available [facility] [address] [place], [address], 05/31/2025 18:22:16 05/31/20 25 05/31/2025 CBC WITH AUTO DIFFE RENTI AL MCV 90.4 fL 79.0-9 8.0 Not Available [facility] [address] [place], [address], 05/31/2025 18:22:16 05/31/20 25 05/31/2025 CBC WITH AUTO DIFFE RENTI AL MCH 29.5 pcg 27.0-3 2.0 Not Available [facility] [address] [place], [address], 05/31/2025 18:22:16 05/31/20 25 05/31/2025 CBC WITH AUTO DIFFE RENTI AL MCHC 32.6 g/dL 32.0-3 7.0 Not Available [facility] [address] [place], [address], 05/31/2025 18:22:16 05/31/20 25 05/31/2025 CBC WITH AUTO DIFFE RENTI AL RDW 13.3 % 11.0-1 5.0 Not Available [facility] [address] [place], [address], 05/31/2025 18:22:16 05/31/20 25 05/31/2025 CBC WITH AUTO DIFFE RENTI AL platelets 224 K/mcL 130-40 0 Not Available [facility] [address] [place], [address], 05/31/2025 18:22:16 05/31/20 25 05/31/2025 CBC WITH AUTO DIFFE RENTI AL MPV 11.3 fL 7.0-11 .0 high Not Available [facility] [address] [place], [address], 05/31/2025 18:22:16 05/31/20 25 05/31/2025 CBC WITH AUTO DIFFE RENTI AL NRBC 0.0 % <1.0 Not Available [facility] [address] [place], [address], 05/31/2025 18:22:16 05/31/20 25 05/31/2025 CBC WITH AUTO DIFFE RENTI AL NRBC absolute 0.00 K/mcL <0.10 Not Available [facility] [address] [place], [address], 05/31/2025 18:22:16 05/31/20 25 05/31/2025 CBC WITH AUTO DIFFE RENTI AL neutrophils relative 57.4 % Not Available [facility] [address] [place], [address], 05/31/2025 18:22:16 05/31/20 25 05/31/2025 CBC WITH AUTO DIFFE RENTI AL lymphocytes relative 28.5 % Not Available [facility] [address] [place], [address], 05/31/2025 18:22:16 05/31/20 25 05/31/2025 CBC WITH AUTO DIFFE RENTI AL monocytes relative 10.2 % Not Available [facility] [address] [place], [address], 05/31/2025 18:22:16 05/31/20 25 05/31/2025 CBC WITH AUTO DIFFE RENTI AL eosinophils relative 2.7 % Not Available [facility] [address] [place], [address], 05/31/2025 18:22:16 05/31/20 25 05/31/2025 CBC WITH AUTO DIFFE RENTI AL basophils relative 0.6 % Not Available [facility] [address] [place], [address], 05/31/2025 18:22:16 05/31/20 25 05/31/2025 CBC WITH AUTO DIFFE RENTI AL immature granulocytes relative 0.6 % Not Available [facility] [address] [place], [address], 05/31/2025 18:22:16 05/31/20 25 05/31/2025 CBC WITH AUTO DIFFE RENTI AL neutrophils absolute 2.98 K/mcL 1.50-7 .00 Not Available [facility] [address] [place], [address], 05/31/2025 18:22:16 05/31/20 25 05/31/2025 CBC WITH AUTO DIFFE RENTI AL lymphocytes absolute 1.48 K/mcL 1.00-5 .00 Not Available [facility] [address] [place], [address], 05/31/2025 18:22:16 05/31/20 25 05/31/2025 CBC WITH AUTO DIFFE RENTI AL monocytes absolute 0.53 K/mcL 0.20-1 .00 Not Available [facility] [address] [place] [address], [address], 05/31/2025 18:22:16 05/31/20 25 05/31/2025 CBC WITH AUTO DIFFE RENTI AL eosinophils absolute 0.14 K/mcL 0.00-0 .50 Not Available [facility] [address] [place], [address], 05/31/2025 18:22:16 05/31/20 25 05/31/2025 CBC WITH AUTO DIFFE RENTI AL basophils absolute 0.03 K/mcL 0.00-0 .20 Not Available [facility] [address] [place] [address], [address], 05/31/2025 18:22:16 05/31/20 25 05/31/2025 CBC WITH AUTO DIFFE RENTI AL immature granulocytes absolute 0.03 K/mcL 0.00-0 .03 Not Available [facility] [address] [place], [address], 05/31/2025 18:22:16 05/31/20 25 05/31/2025 CBC WITH AUTO DIFFE RENTI AL note See Report [facility], [address] [facility], [place], [place] [address] Not Available [facility] [address] [place] [address], [address], 05/31/2025 18:22:16 05/31/20 25 05/31/2025 PSA TOTAL , FREE AND COMPL EXED PSA 1.19 NG/mL 0.00-4 .00 Not Available [facility] [address] [place] [address], [address], 05/31/2025 18:39:19 05/31/20 25 05/31/2025 PSA TOTAL , FREE AND COMPL EXED PSA, complexed 1.09 NG/mL 0.00-3 .00 Not Available [facility] [address] [place], [address], 05/31/2025 18:39:19 05/31/20 25 05/31/2025 PSA TOTAL , FREE AND COMPL EXED PSA, free 0.1 NG/mL Not Available [facility] [address] [place] [address], [address], 05/31/2025 18:39:19 05/31/20 25 05/31/2025 PSA TOTAL , FREE AND COMPL EXED PSA, free pct 8.4 % >25.0 low Free PSA is a calcu lated value . The diagn ostic usefu lness of % free PSA has not been estab lishe d in patie nts with Total PSA below 2.6 or above 10 ng/mL . Not Available [facility] [address] [place] [address], [address], 05/31/2025 18:39:19 05/31/20 25 05/31/2025 PSA TOTAL , FREE AND COMPL EXED note See Report low [facility], [address] [facility], [address], [place] [address] Not Available [facility] [address] [place], [address], 05/31/2025 18:39:19 05/31/20 25 05/31/2025 RENETTA NE AMINO TRANS FERAS E ALT (SGPT) 20 unit/ L 10-60 Not Available [facility] [address] [place], [address], 05/31/2025 18:40:20 05/31/20 25 05/31/2025 RENETTA NE AMINO TRANS FERAS E note See Report [facility], [address] [facility], [place] [place], [place] [address] Not Available [facility] [address] [place], [address], 05/31/2025 18:40:20 05/31/20 25 05/31/2025 CREAT ININE creatinine 1.14 mg/dL 0.70-1 .30 Not Available [facility] [address] [place], [address], 05/31/2025 18:40:22 05/31/20 25 05/31/2025 CREAT ININE eGFR 73 mL/mi n/1.7 3m2 >=60 Calcu latio n based on the Chron ic Kidne y Disea se Epide miolo gy Colla borat ion (CKD- EPI) equat ion refit witho ut adjus tment for race. Not Available [facility] [address] [place], [address], 05/31/2025 18:40:22 05/31/20 25 05/31/2025 CREAT ININE note See Report [facility], [address] [facility], [place] [address] Not Available [facility] [address] [place], [address], 05/31/2025 18:40:22 05/31/20 25 05/31/2025 ASPAR MOELLER AMINO TRANS FERAS E AST (SGOT) 17 unit/ L 10-42 Not Available [facility] [address] [place], [address], 05/31/2025 18:41:20 05/31/20 25 05/31/2025 ASPAR MOELLER AMINO TRANS FERAS E note See Report [facility], [address] [facility], [place] [place], [place] [address] Not Available [facility] [address] [place], [address], 05/31/2025 18:41:20 05/31/20 25 05/31/2025 TREPO NEMA PALLI DUM ANTIB BRENDAN WITH REFLE X TO RPR AND PARTI KENA AGGLU TINAT ION T. pallidum antibodies Negati ve negati ve Not Available [facility] [address] [place], [address], 05/31/2025 18:55:22 05/31/20 25 05/31/2025 TREPO NEMA PALLI DUM ANTIB BRENDAN WITH REFLE X TO RPR AND PARTI KENA AGGLU TINAT ION note See Report [facility], [address] [facility], [address], [facility] [place] [address] Not Available [facility] [address] [place], [address], 05/31/2025 18:55:22 05/31/20 25 05/31/2025 HIV 1 MOLEC ULAR STUDY QUANT ITATI VE HIV-1 RNA interpretati on Not Detect ed not detect ed HIV RNA not detec karen, unabl e to repor t quant itati ve resul ts. Not Available [facility] [address] [place] [address], [address], 06/01/2025 12:24:16 05/31/20 25 05/31/2025 HIV 1 MOLEC ULAR STUDY QUANT ITATI VE note See Report [facility], [address] [facility], [facility], [facility] [place] [address] Not Available [facility] [address] [place], [address], 06/01/2025 12:24:16 05/31/20 25 05/31/2025 LYMPH OCYTE T-KATIA L PANEL cd4 730 cells /mcL 426-17 76 Not Available [facility] [address] [place], [address], 06/05/2025 11:02:04 05/31/20 25 05/31/2025 LYMPH OCYTE T-KATIA L PANEL cd8 231 cells /mcL 161-83 8 Not Available [facility] [address] [place] [address], [address], 06/05/2025 11:02:04 05/31/20 25 05/31/2025 LYMPH OCYTE T-KATIA L PANEL cd4/cd8 ratio 3.16 0.90-4 .90 Not Available [facility] [address] [place] [address], [address], 06/05/2025 11:02:04 05/31/2005/31/2025 LYMPH OCYTE T-KATIA L PANEL cd4 % 54 % 33-64 Not Available [facility] [address] [place] [address], [address], 06/05/2025 11:02:04 05/31/2005/31/2025 LYMPH OCYTE T-KATIA L PANEL cd8 % 17 % 10-39 Not Available [facility] [address] [place] [address], [address], 06/05/2025 11:02:04 05/31/2005/31/2025 LYMPH OCYTE T-KATIA L PANEL note See Report [facility], [address] [facility], [address], [place] [address] Not Available [facility] [address] [place] [address], [address], 06/05/2025 11:02:04 Result Notes None recorded. Problems Name Problem SNOMED Code Status Onset Date Resolution Date Notes Provider Name and Address Organization Details Recorded Time Dizziness and giddiness 422164366 Active 2003 Dizziness and giddiness; snomeddesc ription: Vertigo; Report Immunity to Registry: Yes; Notes: vertigo; Not Available [facility] 4 06:58:27 Vertigo 188402513 Active 2003 Vertigo; snomeddesc ription: Vertigo; Report Immunity to Registry: Yes; Notes: vertigo; Not Available [facility] 4 06:58:30 Primary malignant neoplasm of skin 80960381 Active 2004 Unspecifie d malignant neoplasm of skin, unspecifie d; snomeddesc ription: Malignant neoplasm of skin; Report Immunity to Registry: Yes; Notes: basal cell forearm; removed surgical; not active; Remote; Not Available [facility] 4 06:58:26 Insomnia 363671481 Active 2004 Insomnia; Report Immunity to Registry: Yes; Not Available [facility] 4 06:58:27 Depressiv e disorder 68080222 Active 2004 Other specified depressive episodes; snomeddesc ription: Symptoms of depression ; Report Immunity to Registry: Yes; Notes: derpession /anxiety/i nsomnia hx; Not Available [facility] 4 06:58:29 Symptoms of depressio n 537400720 Active 2004 Symptoms of depression ; snomeddesc ription: Symptoms of depression ; Report Immunity to Registry: Yes; Notes: derpession /anxiety/i nsomnia hx; Not Available [facility] 4 06:58:29 Anxiety 31989922 Active 2004 Anxiety; snomeddesc ription: Anxiety; Report Immunity to Registry: Yes; Notes: panic disorder (chest pain/palpi tations)/d epression; Not Available [facility] 4 06:58:31 Malignant neoplasm of skin 167597012 Active 2004 Malignant neoplasm of skin; snomeddesc ription: Malignant neoplasm of skin; Report Immunity to Registry: Yes; Notes: basal cell forearm; removed surgical; not active; Remote; Not Available [facility] 4 06:58:31 Anxiety disorder 484180264 Active 2004 Anxiety disorder, unspecifie d; snomeddesc ription: Anxiety; Report Immunity to Registry: Yes; Notes: panic disorder (chest pain/palpi tations)/d epression; Not Available [facility] 4 06:58:32 Vitamin D deficienc y 72378767 Active 2009 Vitamin D deficiency ; Report Immunity to Registry: Yes; Not Available [facility] 4 06:58:29 Hemorrhoi ds 89109859 Active 2009 Hemorrhoid s; snomeddesc ription: Hemorrhoid s; Report Immunity to Registry: Yes; Notes: internal and external; Unspecifi ed hemorrhoid s; snomeddesc ription: Hemorrhoid s; Report Immunity to Registry: Yes; Notes: internal and external; Not Available [facility] 4 06:58:32 Nasal congestio n 62341207 Active 2009 Nasal congestion ; snomeddesc ription: Nasal congestion ; Report Immunity to Registry: Yes; Notes: sinusitis/ allergies; Nasal congestion ; snomeddesc ription: Nasal congestion ; Report Immunity to Registry: Yes; Notes: sinusitis/ allergies; Not Available [facility] 4 06:58:33 Gout 30926770 Active 2009 Gout; Report Immunity to Registry: Yes; Not Available [facility] 4 06:58:33 Ulcer of esophagus 79683354 Active 2010 Ulcer of esophagus; snomeddesc ription: Ulcer of esophagus; Report Immunity to Registry: Yes; Notes: EGD/biopsy 2014; ulcerative esophagiti s ; Ulcer of esophagus without bleeding; snomeddesc ription: Ulcer of esophagus; Report Immunity to Registry: Yes; Notes: EGD/biopsy 2014; ulcerative esophagiti s ; Not Available [facility] 4 06:58:27 Essential hypertens ion 26388389 Active 2010 Essential (primary) hypertensi on; snomeddesc ription: Hypertensi ve disorder; Report Immunity to Registry: Yes; Not Available [facility] 4 06:58:28 Hypertens sandy disorder 07347173 Active 2010 Hypertensi ve disorder; snomeddesc ription: Hypertensi ve disorder; Report Immunity to Registry: Yes; Not Available [facility] 4 06:58:28 Benign prostatic hyperplas ia 706196419 Active 2011 Benign prostatic hyperplasi a; snomeddesc ription: Benign prostatic hyperplasi a; Report Immunity to Registry: Yes; Benign prostatic hyperplasi a without lower urinary tract symptoms; snomeddesc ription: Benign prostatic hyperplasi a; Report Immunity to Registry: Yes; Not Available [facility] 4 06:58:28 Polyneuro randal 98929247 Active 2011 Polyneurop athy, unspecifie d; snomeddesc ription: Neuropathy ; Report Immunity to Registry: Yes; Not Available [facility] 4 06:58:29 Hyperlipi demia 74652594 Active 2011 Hyperlipid emia; snomeddesc ription: Hyperlipid emia; Report Immunity to Registry: Yes; Hyperlipi demia, unspecifie d; snomeddesc ription: Hyperlipid emia; Report Immunity to Registry: Yes; Not Available [facility] 4 06:58:32 Neuropath y 195971566 Active 2011 Neuropathy ; snomeddesc ription: Neuropathy ; Report Immunity to Registry: Yes; Not Available [facility] 4 06:58:33 Spasm 85158096 Active 2012 Muscle spasm; Report Immunity to Registry: Yes; Notes: upper/lowe r back/chron ic pain; Not Available [facility] 4 06:58:27 Chronic back pain 701156604 Active 2012 Chronic back pain; snomeddesc ription: Chronic back pain; Report Immunity to Registry: Yes; Notes: chronic back pain/gener alized pain back surgery 09/2018 dx l2-3 stenosis l2-3 decompessi on partial laminectom y medial fecetectom y foraminoto jose bilateral; Not Available [facility] 4 06:58:30 Pain in thoracic spine 107701925 Active 2012 Dorsalgia, unspecifie d; snomeddesc ription: Chronic back pain; Report Immunity to Registry: Yes; Notes: chronic back pain/gener alized pain back surgery 09/2018 dx l2-3 stenosis l2-3 decompessi on partial laminectom y medial fecetectom y foraminoto jose bilateral; Not Available [facility] 4 06:58:31 Furuncle 802235297 Active 2014 Furuncle; snomeddesc ription: Furuncle; Report Immunity to Registry: Yes; Notes: skin/forea christine/follic ulitis; Furuncle, unspecifie d; snomeddesc ription: Furuncle; Report Immunity to Registry: Yes; Notes: skin/forea christine/follic ulitis; Not Available [facility] 4 06:58:30 Herpesvir us infection 61526496 Active 2015 Herpesvira l infection, unspecifie d; snomeddesc ription: Herpes simplex; Report Immunity to Registry: Yes; Notes: HSV 1 pos w oral HSV sores; HSV 2 neg 2015; Not Available [facility] 4 06:58:26 Herpes simplex 01719036 Active 2015 Herpes simplex; snomeddesc ription: Herpes simplex; Report Immunity to Registry: Yes; Notes: HSV 1 pos w oral HSV sores; HSV 2 neg 2015; Not Available [facility] 4 06:58:27 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 Human immunodefi ciency virus infection; snomeddesc ription: Human immunodefi ciency virus infection; Report Immunity to Registry: Yes; Notes: [id number] neg ; Human immunodefi ciency virus [HIV] disease; snomeddesc ription: Human immunodefi ciency virus infection; Report Immunity to Registry: Yes; Notes: [id number] neg ; Not Available [facility] 4 06:58:32 Hemangiom a of intra-abd ominal structure 470525556 Active 2015 Hemangioma of intra-abdo maddi structures ; snomeddesc ription: Hemangioma of liver; Report Immunity to Registry: Yes; Not Available [facility] 4 06:58:28 Hemangiom a of liver 85983330 Active 2015 Hemangioma of liver; snomeddesc ription: Hemangioma of liver; Report Immunity to Registry: Yes; Not Available [facility] 4 06:58:31 Blood chemistry outside reference range 305362013 Active 2016 Other specified abnormal findings of blood chemistry; snomeddesc ription: Decreased testostero ne level; Report Immunity to Registry: Yes; Not Available [facility] 4 06:58:29 Testoster one level below reference range 088451895 Active 2016 Decreased testostero ne level; snomeddesc ription: Decreased testostero ne level; Report Immunity to Registry: Yes; Not Available [facility] 4 06:58:33 Tremor 09346749 Active 2017 Other specified forms of tremor; snomeddesc ription: Resting tremor; Report Immunity to Registry: Yes; Not Available [facility] 4 06:58:31 Resting tremor 02321550 Active 2017 Resting tremor; snomeddesc ription: Resting tremor; Report Immunity to Registry: Yes; Not Available [facility] 4 06:58:33 Kidney stone 34348111 Active 2018 Kidney stone; snomeddesc ription: Kidney stone; Report Immunity to Registry: Yes; Calculus of kidney; snomeddesc ription: Kidney stone; Report Immunity to Registry: Yes; Not Available [facility] 4 06:58:28 Gastroeso phageal reflux disease 590906862 Active 2018 Gastroesop hageal reflux disease; snomeddesc ription: Gastroesop hageal reflux disease; Report Immunity to Registry: Yes; Not Available [facility] 4 06:58:29 Gastroeso phageal reflux disease without esophagit is 335959555 Active 2018 Gastro-eso phageal reflux disease without esophagiti s; snomeddesc ription: Gastroesop hageal reflux disease; Report Immunity to Registry: Yes; Not Available [facility] 4 06:58:30 Diaphragm atic hernia 47035501 Active 2019 Diaphragma tic hernia without obstructio n or gangrene; snomeddesc ription: Hiatal hernia; Report Immunity to Registry: Yes; Notes: per PCP note; Not Available [facility] 4 06:58:27 Hiatal hernia 78985338 Active 2019 Hiatal hernia; snomeddesc ription: Hiatal hernia; Report Immunity to Registry: Yes; Notes: per PCP note; Not Available [facility] 4 06:58:32 Aphthous ulcer of mouth 803986674 Active 2019 Aphthous ulcer of mouth; snomeddesc ription: Aphthous ulcer of mouth; Report Immunity to Registry: Yes; Not Available [facility] 4 06:58:27 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 Recurrent oral aphthae; snomeddesc ription: Aphthous ulcer of mouth; Report Immunity to Registry: Yes; Not Available [facility] 4 06:58:28 Erectile dysfuncti on 074741665 Active 2019 Male erectile disorder; Report Immunity to Registry: Yes; Notes: low testostero ne; Not Available [facility] 4 06:58:30 Chronic pain 03781856 Active 2020 Chronic pain; snomeddesc ription: Chronic pain; Report Immunity to Registry: Yes; Notes: Back/shoul erica.all body; Other chronic pain; snomeddesc ription: Chronic pain; Report Immunity to Registry: Yes; Notes: Back/shoul erica.all body; Not Available [facility] 4 06:58:26 Lipodystr ophy 94370821 Active 2022 [facility] [place] [address] , RANDALL METZ MD [facility] 3 02:42:40 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 [place] [facility] [place], [address] , RANDALL METZ MD [facility] 3 02:42:52 Notes:osteoarthirtis ; Onset Date: 06/15/2013; Report Immunity to Registry: Yes; Notes: multiple/generalized; Some problems listed in Document: #[id number] could not be added to this patient's [...] 60; Duration : 30; 0 refill(s ) 06/13/ 2016 12/12 /2016 completed Duration : 30; VACCINE_ IND: no; [...] bid; VACCINE_ IND: no; SU_FULL_ NAME: Siddharth Martcyrus [...] Not Available Not Available [facility]ai [facility] (15 mcg x [...] /min 12 /min 98.4 [degF] 28.7 kg/m2 12028.4 7 g 96 % 108/70 mm[Hg] [facility] 5 14:57:19 Date Recorded Body height Heart rate Body temperature Body mass index (BMI) Body weight Systolic And Diastolic Provider Name and Address Organization Details Last Updated DateTime 5 177.8 cm 63 /min 98.3 [degF] 28.3 kg/m2 52395.7 g 132/74 mm[Hg] Tiff METZ MD [facility] 5 14:11:38 Date Recorded Body height Heart rate Body temperature Body mass index (BMI) Body weight Systolic And Diastolic Provider Name and Address Organization Details Last Updated DateTime 5 177.8 cm 72 /min 97.2 [degF] 27.5 kg/m2 39533.7 4 g 98/63 mm[Hg] Shahla METZ MD [facility] 5 14:03:50 Date Recorded Body height Heart rate Respiratory rate Body temperature Body mass index (BMI) Body weight Oxygen saturation Head circumference Systolic And Diastolic Provider Name and Address Organization Details Last Updated DateTime 4 177.8 cm 62 /min 12 /min 98.7 [degF] 28 kg/m2 84061.5 1 g 98 % 93.5 cm 126/80 mm[Hg] Tiff METZ MD [facility] 4 15:01:25 Date Recorded Body height Heart rate Body temperature Body mass index (BMI) Body weight Oxygen saturation Systolic And Diastolic Provider Name and Address Organization Details Last Updated DateTime 5 177.8 cm 62 /min 97.5 [degF] 28.7 kg/m2 44099.4 7 g 99 % 130/71 mm[Hg] Shahla METZ MD [facility] 5 14:07:57 Social History Question Answer Notes LastModified by Organizat ion Details LastModified Time Tobacco Smoking Status Never Smoker RANDALL Seaman MD [facility] 02/24/2023 15:11:34 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 Yes Night Blindness [email or web address] Information not available 02/24/2023 Are You Deaf Or Do You Have Serious Difficulty Hearing? No [email or web address] Information not available 02/24/2023 What Type Of Diet Are You Following? REGULAR [email or web address] Information not available 02/24/2023 Which Of Your Hands Is Dominant? Right Information not available 02/24/2023 Do You Use Your Seat Belt Or Car Seat Routinely? Yes Information not available 02/24/2023 Do You Have Difficulty Walking Or Climbing Stairs? Yes Back Pain [email or web address] Information not available 02/24/2023 Do You Have Any Dietary Restrictions? No [email or web address] Information not available 02/24/2023 Sex: Male Functional Status Question Answer Note LastModified by Organizat ion Details LastModified Time Do you have transportation difficulties? No [email or web address] Information not available 02/24/2023 Are you able to walk independently without assistance or assistive devices? YESWOREST [email or web address] Information not available 02/24/2023 Do you have difficulty doing errands alone? No [email or web address] Information not available 02/24/2023 Are you able to care for yourself independently? Yes [email or web address] Information not available 02/24/2023 Do you have difficulty dressing, bathing, grooming, or toileting? No [email or web address] Information not available 02/24/2023 Mental Status Question Answer Note LastModified by Organizat ion Details LastModified Time Do you feel stressed (tense, restless, nervous, or anxious, or unable to sleep at night)? [id number] [email or web address] Information not available 02/24/2023 Do you have difficulty concentrating, remembering or making decisions? No [email or web address] Information no t available 02/24/2023 Family History Nothing Reported Notes:Hypertension, Response Property: Yes; , Stroke, Response Property: Yes; Medical History Condition Response Depression Y Anxiety Disorder Y AIDS/HIV Y Immunizations Vaccine Type Date Status Note Provider Nam e and Address Organization Details Recorded Time COVID-19, mRNA, LNP-S, PF, 50 mcg/0.5 mL 03/24/2023 completed Tiff maya [place] - [facility] 11/04/2023 14:39:33 Past Encounters Encounter ID Performer Location Encounter Start Date Encounter Closed Date Diagnosis/Indication Diagnosis SNOMED-CT Code Diagnosis ICD10 Code Diagnosis IMO Codes Diagnosis Note [id number] Siddharth Metz MD Main Office [address] [place] [address] 02/24/2023 14:54:31 03/05/2023 07:47:11 Human immunodeficiency virus infection 58796052 B20 Detected HIV VL. pt denies new meds, missing doses, denies supplement s.resistan ce test ordered.ma y need to change regimen if evidence of viral resistance to componenss trict compliance avoid supplement sflu and prevnar 20 prescribed . 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 pt aware this is not weight loss tx.potenti al side effects reviewed such as allergic reactions, edema, myalgia, arthlagia among other. s/c med; needs to rotate. Methicilli n resistant Staphylococcus aureus infection 778261476 A49.02 on qd suppressio n tx. to decrease frequency and severity of flareups. [id number] Siddharth Metz MD Main Office [address] [place] [address] 05/27/2023 11:58:48 05/27/2023 13:14:52 Human immunodeficiency virus infection 81275680 B20 on Biktarvy 1 tab po qd.clinicl trial options reviewed with monoclonal AB; consent providedst rict compliance reviewed.a void supplement spt aware of PreP availabili tycondom use [id number] Siddharth Metz MD Main Office [address] [place] [address] 08/25/2023 12:03:16 08/25/2023 13:23:31 Human immunodeficiency virus infection 76626993 B20 on Biktarvy 1 tab po qd.strict compliance reviewed.a void supplement s or keep them 6 hrs apart; ot take w Biktarvy w foodpt aware of PreP availabili ty. U=U reviewed.c ondom use for STI prevention Candidiasis of mouth 797 74124 B37.0 fluconazol e prescribed for thrush. has tolerated well in the past.oral bacterial swab/funga l swab obtained.c all if recurrence in setting of recent dental extraction Methicilli n resistant Staphylococcus aureus infection 300566077 A49.02 on qd suppressio n tx PRN. to decrease frequency and severity of flareups. 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 [id number] Siddharth Metz MD Main Office [address] [place] [address] 09/15/2023 14:59:47 09/15/2023 15:20:13 Human immunodeficiency virus infection 98848870 B20 on Biktarvy 1 tab po qd.strict compliance reviewed.a void supplement s or keep them 6 hrs apart; ot take w Biktarvy w foodpt aware of PreP availabili ty. 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 first dose [...] options if egrifta does not get approved. [id number] Siddharth Metz MD Main Office [address] [place] [address] 11/04/2023 14:13:14 11/04/2023 15:02:39 Human immunodeficiency virus infection 20275152 B20 on Biktarvy 1 tab po qd.strict compliance reviewed.a void supplement s or keep them 6 hrs apart; ot take w Biktarvy w foodpt aware of PreP availabili ty. 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 correct use rveiewed. [id number] Siddharth Metz MD Main Office [address] [place] [address] 02/10/2024 15:03:59 02/10/2024 15:55:05 Human immunodeficiency virus infection 93383351 B20 on Biktarvy 1 tab po qd.strict compliance reviewed.a void supplement s or keep them 6 hrs apart; ot take w Biktarvy w foodpt aware of PreP availabili ty. U=U reviewed.c ondom use for STI prevention aware of DoxyPEP Folliculitis 21008139 L7 3.9 on topical antibiotic PRNdoxycyc line suppressio n tx Anxiety 46068101 F41.9 Hydroxyzin e 25 mg po qhs; has tolerated well in the past. correct use reviewed Candidiasi s of mouth and esophagus 298470702 B37.81 no allergies to azoles.flu conazole qd x 14 dayscall if recurrent or intoleranc e [id number] Siddharth Metz MD Main Office [address] [place] [address] 05/13/2024 15:00:02 05/13/2024 15:18:57 Human immunodeficiency virus infection 95838192 B20 on Biktarvy 1 tab po qd.strict compliance reviewed.a void supplement s or keep them 6 hrs apart; ot take w Biktarvy w foodpt aware of PreP availabili ty. U=U reviewed.c ondom use for STI prevention COVID19, flu an dRSV vaccines recommende daware of DoxyPEP Folliculitis 61939800 L7 3.9 on topical mupirocin/ antibiotic PRNdoxycyc line suppressio n txavoid touching scabs Anxiety 43012600 F41.9 increase dose of Hydroxyzin e from 25 mg to 50mg po qhs; has tolerated well in the past. 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 pt aware this is not weight loss tx. [id number] Siddharth Metz MD Main Office [address] [place] [address] 08/22/2024 14:25:45 08/22/2024 15:20:57 Human immunodeficiency virus infection 47160326 B20 on Biktarvy 1 tab po qd.strict compliance reviewed to prevent VF, resistance and transmissi onclinical trial options reviewedla bs orderedavo id supplement s or keep them 6-8 hrs apart; or take w Biktarvy w foodpt aware of PreP and DOXYPEP availabili ty. U=U reviewed.c ondom use for STI prevention RSV and prevanr 20 recommende d Lipodystrophy 75866067 E 88.1 d/c Egrifta pt feels it is not working; and no further results. needs a break/inje ction fatigue; he is aware that abd fat could return while off Egrifta. will observe. Obesity 316464215 E66.9 zepbound to be ordered once labs reviewedpt has had chronic elevated lipase /amylase in the past ; no clinical pancreatit is hx; has seen GI and workup has been negative.i instructed him to discuss safety og GLP1 with GI in setting of lab finding.wi ll order CMP, lipase and other testing as needed [id number] Siddharth Metz MD Main Office [address] [place] [address] 11/22/2024 13:46:09 11/22/2024 14:38:21 Human immunodeficiency virus infection 35467226 B20 on Biktarvy 1 tab po qd.strict compliance reviewed to prevent VF, resistance and transmissi onclinical trial options reviewedla bs orderedavo id supplement s or keep them 6-8 hrs apart; or take w Biktarvy w foodpt aware of PreP and DOXYPEP availabili ty. U=U reviewed.c ondom use for STI prevention Lipodystrophy 83080456 E 88.1 d/c Egrifta pt feels it is not working; and no further results. needs a break/inje ction fatigue; he is aware that abd fat could return while off Egrifta. will observe. [id number] Siddharth Metz MD Main Office [address] [place] [address] 02/22/2025 13:56:30 02/22/2025 14:46:09 Human immunodeficiency virus infection 24226478 B20 on Biktarvy 1 tab po qd.strict compliance reviewed to prevent VF, resistance and transmissi onclinical trial options reviewedla bs ordered; he took order with him.avoid supplement s or keep them 6-8 hrs apart; or take w Biktarvy w foodpt aware of PreP and DOXYPEP availabili ty. U=U reviewed.c ondom use for STI prevention Lipodystrophy 49390023 E 88.1 d/c Egrifta pt feels it is not working; and no further results. needs a break/inje ction fatigue; he is aware that abd fat could return while off Egrifta. will observe.GL P1's reviewed in the past; has not prescribed due to baseline asymptomat ic elevated lipase. Anxiety 00773155 F41.9 65034 increase dose of Hydroxyzin e 50mg po qhs; has tolerated well in the past. correct use reviewedne eds refill of the 50mg tablets Methicilli n resistant Staphylococcus aureus infection 200358614 A49.02 965106 on qd Doxycyclin e suppressio n tx PRN. to decrease frequency and severity of flareups.m upirocin prescribed PRN [id number] Siddharth Metz MD Main Office [address] [place] [address] 05/24/2025 14:00:15 05/24/2025 15:49:47 Human immunodeficiency virus infection 16017427 B20 on Biktarvy 1 tab po qd.strict [...] be checked- will refer if elevated Anxiety 83219878 F41.9 24577 prescribe Hydroxyzin e 50mg po BID PRN for insomnia/a nxiety has tolerated well in the past. correct use reviewedst ates that the medication is helpful for the anxiety Methicilli n resistant Staphylococcus aureus infection 920227746 A49.02 913290 on qd Doxycyclin e suppressio n tx PRN. to decrease frequency and severity of flareups.m upirocin prescribed PRNsmall excoriatio ns on forearms and scalp Onychomycosis 525560344 B35.1 356610 pt has been treated for nail infection [...] of finger Chronic low back pain 27 3112260 M54.41 G89.29 64906310 pt had back surgery in Jan on [...] at surgical site- has been present since followed up with orthopedic surgeon , scheduled [...] Gunn Member ID Guarantor Name 05/21/2025 1 [employer] [facility] Roni Willson [id number] Roni Willson 05/21/2025 2 [place] [facility] Roni Willson [id number] Roni Willson Notes Date Note Type Note Provider Name and Address Organization Details Recorded Time 05/13/2024 text/html ROS as noted in the HPI f/u HIVon Biktarvy 1 tab po qd.compliant w Biktarvymed list reviewed.labs [facility] HIV VL nondetected; AST/SUSAN wnl; GC/chlamydia neg; HCV neg; treponemal ab neg; eGFR= 67 LC2=1676/2023 722; HIV VL nondetected; 3GFR>70; ALt/AST wnl;08/2023 WD2=346; aslt/ast wnl; eGFR>60; HCV neg; GC negative; no aumfmjyb46/1/23 HIV VL=43; no HCV. no syphilis; ALT/ASt [...] for suppression tx. helping. Siddharth Metz MD [address] [place] [address], [phone], RANDALL METZ MD [facility] 05/13/2024 16:22:23 08/22/2024 text/html ROS as noted in the HPI f/u HIVon Biktarvy 1 tab po qd.compliant w Biktarvyhappy w med.med list reviewed.labs reviewed with johnsons female partner. aware of PreP and DOXYPEPnot [...] HCV neg; treponemal ab neg; eGFR= 67 NO6=9991/2023 722; HIV VL nondetected; 3GFR>70; ALt/AST wnl;08/2023 RR2=256; aslt/ast wnl; eGFR>60; HCV neg; GC negative; no cnmsyoqi10/1/23 HIV VL=43; no HCV. no syphilis; ALT/ASt wbl; eGFR-75; no GC/no chlamydia08/2022 HIV VL nondetcetd; ALT/AST wnl; eGFR>60; Siddharth Metz MD [address] [place] [address], [phone], [facility] - SIDDHARTH METZ MD [facility] 08/28/2024 11:41:13 11/22/2024 text/html ROS as noted [...] HCV neg; treponemal ab neg; eGFR= 67 FF7=8090/2023 722; HIV VL nondetected; 3GFR>70; ALt/AST wnl;08/2023 XT5=978; aslt/ast wnl; eGFR>60; HCV neg; GC negative; no qapjbeip97/1/23 HIV VL=43; no HCV. no syphilis; ALT/ASt wbl; eGFR-75; no GC/no chlamydia08/2022 HIV VL nondetcetd; ALT/AST wnl; eGFR>60; Siddharth Metz MD [address] [place] [address], [phone], [facility] - SIDDHARTH METZ MD [facility] 11/23/2024 12:17:08 02/22/2025 text/html ROS as noted [...] HCV neg; treponemal ab neg; eGFR= 67 LA6=1476/2023 722; HIV VL nondetected; 3GFR>70; ALt/AST wnl;08/2023 CT8=259; aslt/ast wnl; eGFR>60; HCV neg; GC negative; no wwvvftso29/1/23 HIV VL=43; no HCV. no syphilis; ALT/ASt wbl; eGFR-75; no GC/no chlamydia08/2022 HIV VL nondetcetd; ALT/AST wnl; eGFR>60; Siddharth Metz MD [address] [place] [address], [phone], [facility] - SIDDHARTH METZ MD [facility] 02/22/2025 16:17:56 05/24/2025 text/html ROS as noted [...] HCV neg; treponemal ab neg; eGFR= 67 VM9=7779/2023 722; HIV VL nondetected; 3GFR>70; ALt/AST wnl;08/2023 JX9=621; aslt/ast wnl; eGFR>60; HCV neg; GC negative; no kltuxqwy15/1/23 HIV VL=43; no HCV. no syphilis; ALT/ASt wbl; eGFR-75; no GC/no chlamydia08/2022 HIV VL nondetcetd; ALT/AST wnl; eGFR>60; Siddharth Metz MD [address] [place] [address], [phone], [place] - SIDDHARTH METZ MD [facility] 05/24/2025 16:43:15
--- OUTSIDE RECORDS SUMMARY | 2025-06-13 16:22 | XMS_ITS | Encounter Summary ---
Author Organization [facility] Address [address] [place] [address] Care Team Providers Care Stonecutter Assistant Name Role Phone Gregg Todd MD Primary Care Provider [phone] Reason for Visit * Reason Onset Date Comments Letter for School/Work 05/16/2025 Encounter Details Date Type Department Care Team ([facility] st Contact Info) Description 05/16/2025 Telephone Internal Medicine - [place] [address] [facility] [address] [place] [phone] Gregg Todd MD [address] [facility] [address] [place] [address] Social History Tobacco Use Types Packs/Day Years [...] for your loved ones. For example, child nutrition director or elderly care for an older [...] periods of time. His badge number is [id number] and Pin # [id number], for date: September 01, 2025. He asked if this can be faxed to [facility] Jury office at fax # [phone] once completed. documented in this encounter Plan of Treatment Upcoming Encounters Date Type Department Care Team (Late st Contact Info) Description 06/16/2025 10:30 AM EST Office Visit Internal Medicine [facility] [address] [phone] Gregg Todd MD [address] [address] 09/28/2025 8:15 AM EDT Office Visit Internal Medicine [facility] [address] [phone] Gregg Todd MD 175 [facility] [address] [place] [address] 11/30/2025 11:00 AM EDT Office Visit Pulmonology - [place] [address] [facility] [address] [place] [address] Felicia Sparrow MD [address] [place] [phone] documented as of this encounter Visit Diagnoses Not on filedocumented in this encounter Additional Health Concerns Assessment Noted Time PHQ-9 Depression Total Score: 10 025 9:46 PM EDT documented as of this encounter Care Teams Stonecutter Assistant Relationship Specialty Start Date End Date Gregg Todd MD 175 [facility] [address] [place] [address] PCP - General Internal Medicine 04/17/21 documented as of this encounter
--- OUTSIDE RECORDS SUMMARY | 2025-06-13 16:22 | XMS_ITS | Clinical Summary ---
Author Organization LL [facility] Address 175 [place] [address] Phone Care Team Providers Care Compo Conveyor Operator Name Role Phone Gregg Todd MD Primary Care Provider [phone] Allergies No known active allergies Medications bictegravir-emtr [...] Plan: Mr. Willson is being followed at [facility] by Dr. Carreno where he [...] PM EST Lab Draw Station - 175 [facility] 175 [facility] [address] [place] [phone] Human immunodeficiency virus (HIV) disease (CMS/HCC V24, [facility] V28) (Primary Dx); Benign prostate hyperplasia 05/31/2025 2:15 PM EST Office Visit Pulmonology - [place] [facility] [address] [place] [phone] Felicia Sparrow MD Moderate persistent asthma, unspecified whether complicated (Primary Dx); Lung nodules; Elevated diaphragm; Restrictive lung disease; Dyspnea, unspecified type 05/16/2025 Telephone Internal Medicine - [address] [place] [phone] Gregg Todd MD 05/04/2025 Telephone Internal Medicine - [place] [facility] [address] [place] [phone] Kalli Andrade MA 03/30/2025 8:15 AM EDT Office Visit Internal Medicine - [address] [place] [address] Gregg Todd MD Dizziness (Primary Dx); Hypercholesterolemia; Current mild episode of major depressive disorder, unspecified whether recurrent ([facility] V24); Mild intermittent asthma without complication from Last 3 Months Immunizations Immunization Administration Dates Next Due DTaP (Infanrix) 6wks to less than 7yo 07/29/2012 Hepatitis A Adult (Havrix; V aqta) 19yo and older 08/10/2015 Hepatitis B (Vjvbiix-Y-Kgaty , Recombivax HB-Adult) 19yo and older 02/20/2017,09/12/2016,08/15/2016 [...] lumbar disc HIV (human immunodeficiency virus infection) ([facility] V24, [facility] V28) 01/04/2019 DX:HIV (human im munodeficiency virus infection) ([facility]) Hypertension 01/04/2019 DX:Hypertension Spinal stenosis, [...] Hypertension DX:Hypertension HIV (human immunodeficiency virus infection) ([facility] V24, [facility] V28) DX:HIV (human im munodeficiency virus infection) ([facility]) Hemorrhoid Anemia Family History Medical [...] ed Within the last 3 months, deborah w many times did you visit the [...] for your loved ones. For example, school childcare attendant or elderly care for an older [...] 10:30 AM EST Office Visit Internal Medicine - [place] [address] [phone] Gregg Todd MD [address] [address] 09/28/2025 8:15 AM EDT Office Visit Internal Medicine - [place] [address] [phone] Gregg Todd MD [address] [address] 11/30/2025 11:00 AM EDT Office Visit Pulmonology - [place] [address] [phone] Felicia Sparrow MD [address] [place] [phone] Health Maintenance Due Date Last Done Comments [...] PM EST Human immunodeficiency virus (HIV) disease ([facility] V24, [facility] V28) CBC AND DIFFERENTIAL Routine 05/31/2025 2:43 PM EST Human immunodeficiency virus (HIV) disease (CMS/HCC V24, CMS/[facility] V28) TREPONEMA PALLIDUM ANTIBODY WITH REFLEX TO RPR AND PARTICLE AGGLUTINATION Routine 05/31/2025 2:43 PM EST Human immunodeficiency virus (HIV) disease (CMS/HCC V24, CMS/HCC V28) LYMPHOCYTE T-CELL PANEL Routine 05/31/20 25 2:43 PM EST Human immunodeficiency virus (HIV) [...] virus (HIV) disease (CMS/HCC V24, CMS/HCC V28) LIPID PANEL WITH REFLEX TO DIRECT LDL Routine 03/06/2025 10:08 AM EDT Current mild episode of major depressive disorder, unspecified whether recurrent (CMS/HCC V24) Hypercholesterolemia Mild intermittent asthma without complication COLONOSCOPY Routine 12/08/2024 8:58 AM EDT Colon cancer screening HEPATITIS PANEL, ACUTE WITH REFLEX TO CONFIRMATION Routine 08/23/2024 9:33 AM EDT Elevated liver function tests from Last 3 Months or Most Recently Relevant to Health Maintenance Results * (ABNORMAL) PSA total, free and complexed (05/31/2025 2:43 PM EST) PSA 1.19 0.00 - 4.00 ng/mL 05/31/2025 6:37 PM EST [facility] PSA, Complexed 1.09 0.00 - 3.00 ng/mL 05/31/2025 6:37 PM EST [facility] PSA, Free 0.1 ng/mL 05/31/2025 6:37 PM EST [facility] PSA, Free Pct 8.4(L) >25.0 % 05/31/2025 6:37 PM EST [facility] Comment:Free PSA is a calcul ated value. The diagnostic usefulness of % free PSA has not been established in patients with Total PSA below 2.6 or above 10 ng/mL. Blood Venous blood specimen / Unknown Venipuncture / Unknown 05/31/2025 2:43 PM EST 05/31/2025 2:43 PM EST Narrative [facility] - 05/31/2025 6:37 PM EST The [facility] IM Chemiluminescent Immunoassay is used. Results obtained with different assay methods or kits cannot be used interchangeably. Results cannot be interpreted as absolute evidence of the presence or absence of malignant disease. us Юлия Angel MD LAB BLOOD ORDERABLES Una l Result [facility] [address] [place] [address], * Treponema pallidum antibody with reflex to RPR and particle agglutination (05/31/2025 2:43 PM EST) T. Pallidum Antibodies Negative Negative 05/31/2025 6:54 PM EST [facility] Blood Venous blood specimen / Unknown Venipuncture / Unknown 05/31/2025 2:43 PM EST 05/31/2025 2:43 PM EST us Юлия Angel MD LAB BLOOD ORDERABLES Una tovar Result [facility] [address] [place] [address], [place] [phone] * (ABNORMAL) CBC auto differential (05/31/2025 2:43 PM EST) Pathologist [facility] WBC 5.2 4.8 - 10.8 K/mcL LAB HEMETOLOGY METHOD 05/31/2025 6:20 PM EST [facility] RBC 4.80 4.50 - 5.50 M/mcL LAB HEMETOLOGY METHOD 05/31/2025 6:20 PM EST [facility] Hemoglobin 14.1 13.5 - 17.5 g/dL LAB HEMETOLOGY METHOD 05/31/2025 6:20 PM EST [facility] Hematocrit 43.2 42.0 - 54.0 % LAB HEMETOLOGY METHOD 05/31/2025 6:20 PM EST [facility] MCV 90.4 79.0 - 98.0 FL LAB HEMETOLOGY METHOD 05/31/2025 6:20 PM EST [facility] MCH 29.5 27.0 - 32.0 pcg LAB HEMETOLOGY METHOD 05/31/2025 6:20 PM EST [facility] MCHC 32.6 32.0 - 37.0 g/dL LAB HEMETOLOGY METHOD 05/31/2025 6:20 PM EST [facility] RDW 13.3 11.0 - 15.0 % LAB HEMETOLOGY METHOD 05/31/2025 6:20 PM [facility] Platelets 224 130 - 400 K/mcL LAB HEMETOLOGY METHOD 05/31/2025 6:20 PM [facility] MPV 11.3(H) 7.0 - 11.0 FL LAB HEMETOLOGY METHOD 05/31/2025 6:20 PM [facility] NRBC 0.0 <1.0 % LAB HEMETOLOGY METHOD 05/31/2025 6:20 PM [facility] NRBC Absolute 0.00 <0.10 K/mcL LAB HEMETOLOGY METHOD 05/31/2025 6:20 PM [facility] Neutrophils Relative 57.4 % LAB HEMETOLOGY METHOD 05/31/2025 6:20 PM [facility] Lymphocytes Relative 28.5 % LAB HEMETOLOGY METHOD 05/31/2025 6:20 PM [facility] Monocytes Relative 10.2 % LAB HEMETOLOGY METHOD 05/31/2025 6:20 PM [facility] Eosinophils Relative 2.7 % LAB HEMETOLOGY METHOD 05/31/2025 6:20 PM [facility] Basophils Relative 0.6 % LAB HEMETOLOGY METHOD 05/31/2025 6:20 PM [facility] Immature Granulocytes Relative 0.6 % LAB HEMETOLOGY METHOD 05/31/2025 6:20 PM [facility] Neutrophils Absolute 2.98 1.50 - 7.00 K/mcL LAB HEMETOLOGY METHOD 05/31/2025 6:20 PM [facility] Lymphocytes Absolute 1.48 1.00 - 5.00 K/mcL LAB HEMETOLOGY METHOD 05/31/2025 6:20 PM [facility] Monocytes Absolute 0.53 0.20 - 1.00 K/mcL LAB HEMETOLOGY METHOD 05/31/2025 6:20 PM [facility] Eosinophils Absolute 0.14 0.00 - 0.50 K/mcL LAB HEMETOLOGY METHOD 05/31/2025 6:20 PM [facility] Basophils Absolute 0.03 0.00 - 0.20 K/mcL LAB HEMETOLOGY METHOD 05/31/2025 6:20 PM EST [facility] Immature Granulocytes Absolute 0.03 0.00 - 0.03 K/[facility] LAB HEMETOLOGY METHOD 05/31/2025 6:20 PM EST [facility] Blood Venous blood specimen / Unknown Venipuncture / Unknown 05/31/2025 2:43 PM EST 05/31/2025 2:43 PM EST Юлия Angel MD LAB BLOOD ORDERABLES Una l Result [facility] [address] [place] [address], [place] [phone] * Lymphocyte T-cell panel (05/31/2025 2:43 PM EST) CD4 730 426 - 1,776 cells/mcL 06/05/2025 11:00 AM EST [facility] CD8 231 161 - 838 cells/mcL 06/05/2025 11:00 AM EST [facility] CD4/CD8 Ratio 3.16 0.90 - 4.90 06/05/2025 11:00 AM EST [facility] CD4 % 54 33 - 64 % 06/05/2025 11:00 AM EST [facility] CD8 % 17 10 - 39 % 06/05/2025 11:00 AM EST [facility] Blood Venous blood specimen / Unknown Venipuncture / Unknown 05/31/2025 2:43 PM EST 05/31/2025 2:43 PM EST Юлия Angel MD LAB MOLECULAR DIAGNOSTICS ORDERABLES Final Result [facility] [address] [place] [address], [place] [phone] * HIV 1 molecular study quantitative (05/31/2025 2:43 PM EST) [facility] HIV-1 RNA Interpretation Not Detected Not Detected LAB MOLECULAR DIAGNOSTICS METHOD 06/01/2025 12:22 PM EST [facility] Comment:HIV RNA not detected , unable to report quantitative results. Blood Venous blood specimen / Unknown Venipuncture / Unknown 05/31/2025 2:43 PM EST 05/31/2025 2:43 PM EST Юлия Angel MD LAB BLOOD ORDERABLES Una l Result [facility] [address] [place] [address], [place] [phone] * Creatinine (05/31/2025 2:43 PM EST) [facility] Creatinine 1.14 0.70 - 1.30 mg/dL 05/31/2025 6:38 PM EST [facility] eGFR 73 >=60 mL/min/1. 73m2 05/31/2025 6:38 PM EST [facility] Comment:Calculation based on the Chronic Kidney Disease Epidemiology Collaboration (CKD-EPI) equation refit without adjustment for race. Blood Venous blood specimen / Unknown Venipuncture / Unknown 05/31/2025 2:43 PM EST 05/31/2025 2:43 PM EST Юлия Angel MD LAB BLOOD ORDERABLES Una l Result [facility] [address] [place] [address], [place] [phone] * Alanine aminotransferase (05/31/2025 2:43 PM EST) [facility] ALT (SGPT) 20 10 - 60 unit/L 05/31/2025 6:38 PM EST [facility] Blood Venous blood specimen / Unknown Venipuncture / Unknown 05/31/2025 2:43 PM EST 05/31/2025 2:43 PM EST Юлия Angel MD LAB BLOOD ORDERABLES Una l Result Performing Organization Address City/[facility]/ZIP Co de Phone Number [facility] [address] [place] [address], [place] [phone] * Aspartate aminotransferase (05/31/2025 2:43 PM EST) AST (SGOT) 17 10 - 42 unit/L 05/31/2025 6:39 PM EST [facility] Blood Venous blood specimen / Unknown Venipuncture / Unknown 05/31/2025 2:43 PM EST 05/31/2025 2:43 PM EST Юлия Angel MD LAB BLOOD ORDERABLES Una l Result Performing Organization Address City/[facility]/ZIP Co de Phone Number [facility] [address] [place] [address], [place] [phone] * (ABNORMAL) Lipid panel with reflex to direct LDL (03/06/2025 10:08 AM EDT) Cholesterol 187 0 - 200 mg/dL LAB CHEMISTRY METHOD 03/06/2025 3:32 PM EDT [facility] Triglycerides 188(H) 0 - 150 mg/dL LAB CHEMISTRY METHOD 03/06/2025 3:32 PM EDT [facility] HDL 53 >=40 mg/dL LAB CHEMISTRY METHOD 03/06/2025 3:32 PM EDT [facility] LDL Calculated 96 0 - 100 mg/dL LAB CHEMISTRY METHOD 03/06/2025 3:32 PM EDT [facility] Comment:Estimated LDL Calcul ated using equation: Total cholesterol - HDL cholesterol - (Triglycerides/5) VLDL Cholesterol Yovany 37.6 mg/dL LAB CHEMISTRY METHOD 03/06/2025 3:32 PM EDT [facility] Non HDL Chol. (LDL+VLDL) 134 <145 mg/dL LAB CHEMISTRY METHOD 03/06/2025 3:32 PM EDT [facility] Chol/HDL Ratio 3.5 0.0 - 4.4 LAB CHEMISTRY METHOD 03/06/2025 3:32 PM EDT [facility] Blood Venous blood specimen / Unknown Venipuncture / Unknown 03/06/2025 10:08 AM EDT 03/06/2025 10:08 AM EDT Gregg Todd MD LAB BLOOD ORDERABLES Final Resul t [facility] [address] [place] [address], [place] [phone] * COLONOSCOPY Anesthesia - MAC; [facility] ENDOSCOPY (12/08/2024 8:58 AM EDT) Anatomical Region Laterality Modality Other 12/08/2024 8:30 AM EDT Impressions 12/08/2024 8:59 AM EDT - Internal hemorrhoids. - Diverticulosis in the sigmoid colon. - No specimens collected. Recommendation: - Use fiber, for example Citrucel, Fibercon, Konsyl or Metamucil. - Repeat colonoscopy in 10 years for screening purposes. Narrative 12/08/2024 8:59 AM EDT [facility] Patient Name: Roni Willson Procedure Date: [...] perforation or abscess without bleeding CPT copyright 202 [employer]. All rights reserved. The codes documented in this report are preliminary and upon senior internet sales consultant review may be revised to meet current compliance requirements. Alok Mccormack MD 12/08/2024 8:59:00 AM This report has been signed electronically.Alok Mccormack MD Number of Addenda: 0 Note Initiated On: 12/08/2024 8:30 AM Scope In: Scope Out: Endoscopy Department at [facility] - [address] [place] [phone] Procedure Note Alok Mccormack MD - 12/08/2024 [facility] Patient Name: Roni Willson Procedure Date: [...] or abscess without bleeding CPT copyright 2020 [employer]. All rights reserved. The codes documented in this report are preliminary and upon senior internet sales consultant reviewmay be revised to meet current compliance requirements. Alok Mccormack MD 12/08/2024 8:59:00 AM This report has been signed electronically.Alok Mccormack MD Number of Addenda: 0 Note Initiated On: 12/08/2024 8:30 AM Scope In: Scope Out: Endoscopy Department at [facility] - [address] [place] [phone] IMPRESSION: - Internal hemorrhoids. - Diverticulosis in [...] LAB CHEMISTRY METHOD 08/23/2024 12:18 PM EDT [facility] Hepatitis A Antibody [...] MD LAB BLOOD ORDERABLES Final Resul t [facility] ([facility]) [facility] [address] [place] [address], from Last 3 Months or Most Recently Relevant to Health Maintenance Insurance [employer] [place] - [place] Care Teams Compo Conveyor Operator Relationship Specialty Start Date End Date Gregg Todd MD [address] [place] [address] PCP - General Internal Medicine 04/17/21
--- OUTSIDE RECORDS SUMMARY | 2025-06-13 16:22 | XMS_ITS | Continuity of Care Document ---
Author Organization RANDALL CARRERA MD [facility], Main Office Address [address] [place] [address] Assessment No assessment recorded. Plan of Treatment Reminders Order Date Submit Date Provider Last Modified By Organization Details Last Modified Time Details Appointments B20 FOLLOW UP 2025 02:00P Bret Angel MD Not available Not available Not available Lab CBC w/ diff 2024 025 [facility], [address] [place] [address], [id number], 06/02/2025 08:54:25 HIV-1 RNA, quantitat patricia, PCR, serum or plasma 2024 025 [facility], [address] [place] [address], [id number], 06/02/2025 08:54:26 RPR (rapid plasma reagin), serum 2024 025 [facility], [address] [place] [address], [id number], 06/02/2025 08:54:26 T-cell regulator y subsets panel, blood 2024 025 [facility], [address] [place] [address], [id number], 06/02/2025 08:54:26 creatinin e w/ estimated GFR (eGFR), serum or plasma 2024 025 [facility], [address] [place] [address], [id number], 06/02/2025 08:54:26 AST/SGOT (aspartat e aminotran sferase), serum or plasma [facility], [address] [place] [address], [facility] [address], [place], [address], 06/02/2025 08:54:26 ALT (alanine aminotran sferase), serum or plasma 2024 025 [facility], [address] [place] [address], [facility] [address], [place], [address], 06/02/2025 08:54:26 PSA, total + free, serum or plasma 2024 [facility], [address] [place] [address], [facility] [address], [place], [address], 06/02/2025 08:54:26 Referral None recorded. Procedures None recorded. Surgeries None recorded. Imaging None recorded. Medication Orders Voltaren Arthritis Pain 1 % topical gel 2024 [id number], [address] [place], [address], 05/24/2025 16:38:13 mupirocin 2 % topical ointment 2024 [id number], [address] [place], [address], 05/24/2025 16:38:13 doxycycli ne monohydra te 100 mg capsule 2024 [id number], [address] [place], [address], 05/24/2025 16:40:24 fluconazo le 100 mg tablet 2024 [id number], [address] [place], [address], 05/24/2025 16:38:12 hydroxyzi ne HCl 50 mg tablet 2024 025 [id number], [address] [place], [address], 05/24/2025 16:38:12 Biktarvy 50 mg-200 mg-25 mg tablet 2024 025 [id number], [address] [place], [address], 05/24/2025 16:38:13 Patient TargetsNo targets recorded. Patient InstructionsNo instructions recorded. Reason for Referral None Reported. Problems Name Problem SNOMED Code Status Onset Date Resolution Date Notes Provider Name and Address Organization Details Recorded Time Dizziness and giddiness 554980353 Active 2003 Dizziness and giddiness; snomeddesc ription: Vertigo; Report Immunity to Registry: Yes; Notes: vertigo; Not Available [facility] 4 06:58:27 Vertigo 758551909 Active 2003 Vertigo; snomeddesc ription: Vertigo; Report Immunity to Registry: Yes; Notes: vertigo; Not Available [facility] 4 06:58:30 Primary malignant neoplasm of skin 64572467 Active 2004 Unspecifie d malignant neoplasm of skin, unspecifie d; snomeddesc ription: Malignant neoplasm of skin; Report Immunity to Registry: Yes; Notes: basal cell forearm; removed surgical; not active; Remote; Not Available [facility] 4 06:58:26 Insomnia 527995047 Active 2004 Insomnia; Report Immunity to Registry: Yes; Not Available [facility] 4 06:58:27 Depressiv e disorder 32505260 Active 2004 Other specified depressive episodes; snomeddesc ription: Symptoms of depression ; Report Immunity to Registry: Yes; Notes: derpession /anxiety/i nsomnia hx; Not Available [facility] 4 06:58:29 Symptoms of depressio n 367331833 Active 2004 Symptoms of depression ; snomeddesc ription: Symptoms of depression ; Report Immunity to Registry: Yes; Notes: derpession /anxiety/i nsomnia hx; Not Available [facility] 4 06:58:29 Anxiety 23389883 Active 2004 Anxiety; snomeddesc ription: Anxiety; Report Immunity to Registry: Yes; Notes: panic disorder (chest pain/palpi tations)/d epression; Not Available [facility] 4 06:58:31 Malignant neoplasm of skin 088229404 Active 2004 Malignant neoplasm of skin; snomeddesc ription: Malignant neoplasm of skin; Report Immunity to Registry: Yes; Notes: basal cell forearm; removed surgical; not active; Remote; Not Available [facility] 4 06:58:31 Anxiety disorder 134878958 Active 2004 Anxiety disorder, unspecifie d; snomeddesc ription: Anxiety; Report Immunity to Registry: Yes; Notes: panic disorder (chest pain/palpi tations)/d epression; Not Available [facility] 4 06:58:32 Vitamin D deficienc y 43633769 Active 2009 Vitamin D deficiency ; Report Immunity to Registry: Yes; Not Available [facility] 4 06:58:29 Hemorrhoi ds 82214141 Active 2009 Hemorrhoid s; snomeddesc ription: Hemorrhoid s; Report Immunity to Registry: Yes; Notes: internal and external; Unspecifi ed hemorrhoid s; snomeddesc ription: Hemorrhoid s; Report Immunity to Registry: Yes; Notes: internal and external; Not Available [facility] 4 06:58:32 Nasal congestio n 40767480 Active 2009 Nasal congestion ; snomeddesc ription: Nasal congestion ; Report Immunity to Registry: Yes; Notes: sinusitis/ allergies; Nasal congestion ; snomeddesc ription: Nasal congestion ; Report Immunity to Registry: Yes; Notes: sinusitis/ allergies; Not Available [facility] 4 06:58:33 Gout 92874973 Active 2009 Gout; Report Immunity to Registry: Yes; Not Available [facility] 4 06:58:33 Ulcer of esophagus 62110029 Active 2010 Ulcer of esophagus; snomeddesc ription: Ulcer of esophagus; Report Immunity to Registry: Yes; Notes: EGD/biopsy 2014; ulcerative esophagiti s ; Ulcer of esophagus without bleeding; snomeddesc ription: Ulcer of esophagus; Report Immunity to Registry: Yes; Notes: EGD/biopsy 2014; ulcerative esophagiti s ; Not Available [facility] 4 06:58:27 Essential hypertens ion 25005752 Active 2010 Essential (primary) hypertensi on; snomeddesc ription: Hypertensi ve disorder; Report Immunity to Registry: Yes; Not Available [facility] 4 06:58:28 Hypertens patricia disorder 97057327 Active 2010 Hypertensi ve disorder; snomeddesc ription: Hypertensi ve disorder; Report Immunity to Registry: Yes; Not Available [facility] 4 06:58:28 Benign prostatic hyperplas ia 936367795 Active 2011 Benign prostatic hyperplasi a; snomeddesc ription: Benign prostatic hyperplasi a; Report Immunity to Registry: Yes; Benign prostatic hyperplasi a without lower urinary tract symptoms; snomeddesc ription: Benign prostatic hyperplasi a; Report Immunity to Registry: Yes; Not Available [facility] 4 06:58:28 Polyneuro randal 32162595 Active 2011 Polyneurop athy, unspecifie d; snomeddesc ription: Neuropathy ; Report Immunity to Registry: Yes; Not Available [facility] 4 06:58:29 Hyperlipi demia 50278488 Active 2011 Hyperlipid emia; snomeddesc ription: Hyperlipid emia; Report Immunity to Registry: Yes; Hyperlipi demia, unspecifie d; snomeddesc ription: Hyperlipid emia; Report Immunity to Registry: Yes; Not Available [facility] 4 06:58:32 Neuropath y 932943233 Active 2011 Neuropathy ; snomeddesc ription: Neuropathy ; Report Immunity to Registry: Yes; Not Available [facility] 4 06:58:33 Spasm 02540850 Active 2012 Muscle spasm; Report Immunity to Registry: Yes; Notes: upper/lowe r back/chron ic pain; Not Available [facility] 4 06:58:27 Chronic back pain 377542736 Active 2012 Chronic back pain; snomeddesc ription: Chronic back pain; Report Immunity to Registry: Yes; Notes: chronic back pain/gener alized pain back surgery 09/2018 dx l2-3 stenosis l2-3 decompessi on partial laminectom y medial fecetectom y foraminoto jose bilateral; Not Available [facility] 4 06:58:30 Pain in thoracic spine 485907539 Active 2012 Dorsalgia, unspecifie d; snomeddesc ription: Chronic back pain; Report Immunity to Registry: Yes; Notes: chronic back pain/gener alized pain back surgery 09/2018 dx l2-3 stenosis l2-3 decompessi on partial laminectom y medial fecetectom y foraminoto jose bilateral; Not Available [facility] 4 06:58:31 Furuncle 252716073 Active 2014 Furuncle; snomeddesc ription: Furuncle; Report Immunity to Registry: Yes; Notes: skin/forea christine/follic ulitis; Furuncle, unspecifie d; snomeddesc ription: Furuncle; Report Immunity to Registry: Yes; Notes: skin/forea christine/follic ulitis; Not Available [facility] 4 06:58:30 Herpesvir us infection 10336850 Active 2015 Herpesvira l infection, unspecifie d; snomeddesc ription: Herpes simplex; Report Immunity to Registry: Yes; Notes: HSV 1 pos w oral HSV sores; HSV 2 neg 2015; Not Available [facility] 4 06:58:26 Herpes simplex 32974505 Active 2015 Herpes simplex; snomeddesc ription: Herpes simplex; Report Immunity to Registry: Yes; Notes: HSV 1 pos w oral HSV sores; HSV 2 neg 2015; Not Available [facility] 4 06:58:27 Human immunodef iciency virus infection 74027419 Active 2015 Human immunodefi ciency virus infection; snomeddesc ription: Human immunodefi ciency virus infection; Report Immunity to Registry: Yes; Notes: [id number] neg ; Human immunodefi ciency virus [HIV] disease; snomeddesc ription: Human immunodefi ciency virus infection; Report Immunity to Registry: Yes; Notes: [id number] neg ; Not Available [facility] 4 06:58:32 Hemangiom a of intra-abd ominal structure 955028376 Active 2015 Hemangioma of intra-abdo maddi structures ; snomeddesc ription: Hemangioma of liver; Report Immunity to Registry: Yes; Not Available [facility] 4 06:58:28 Hemangiom a of liver 92345944 Active 2015 Hemangioma of liver; snomeddesc ription: Hemangioma of liver; Report Immunity to Registry: Yes; Not Available [facility] 4 06:58:31 Blood chemistry outside reference range 156380577 Active 2016 Other specified abnormal findings of blood chemistry; snomeddesc ription: Decreased testostero ne level; Report Immunity to Registry: Yes; Not Available [facility] 4 06:58:29 Testoster one level below reference range 111726687 Active 2016 Decreased testostero ne level; snomeddesc ription: Decreased testostero ne level; Report Immunity to Registry: Yes; Not Available [facility] 4 06:58:33 Tremor 04009439 Active 2017 Other specified forms of tremor; snomeddesc ription: Resting tremor; Report Immunity to Registry: Yes; Not Available [facility] 4 06:58:31 Resting tremor 48691917 Active 2017 Resting tremor; snomeddesc ription: Resting tremor; Report Immunity to Registry: Yes; Not Available [facility] 4 06:58:33 Kidney stone 66322946 Active 2018 Kidney stone; snomeddesc ription: Kidney stone; Report Immunity to Registry: Yes; Calculus of kidney; snomeddesc ription: Kidney stone; Report Immunity to Registry: Yes; Not Available [facility] 4 06:58:28 Gastroeso phageal reflux disease 140459549 Active 2018 Gastroesop hageal reflux disease; snomeddesc ription: Gastroesop hageal reflux disease; Report Immunity to Registry: Yes; Not Available [facility] 4 06:58:29 Gastroeso phageal reflux disease without esophagit is 869024163 Active 2018 Gastro-eso phageal reflux disease without esophagiti s; snomeddesc ription: Gastroesop hageal reflux disease; Report Immunity to Registry: Yes; Not Available [facility] 4 06:58:30 Diaphragm atic hernia 89692522 Active 2019 Diaphragma tic hernia without obstructio n or gangrene; snomeddesc ription: Hiatal hernia; Report Immunity to Registry: Yes; Notes: per PCP note; Not Available [facility] 4 06:58:27 Hiatal hernia 31544074 Active 2019 Hiatal hernia; snomeddesc ription: Hiatal hernia; Report Immunity to Registry: Yes; Notes: per PCP note; Not Available [facility] 4 06:58:32 Aphthous ulcer of mouth 785060973 Active 2019 Aphthous ulcer of mouth; snomeddesc ription: Aphthous ulcer of mouth; Report Immunity to Registry: Yes; Not Available [facility] 4 06:58:27 Recurrent aphthous stomatiti s 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 Recurrent oral aphthae; snomeddesc ription: Aphthous ulcer of mouth; Report Immunity to Registry: Yes; Not Available [facility] 4 06:58:28 Erectile dysfuncti on 386353384 Active 2019 Male erectile disorder; Report Immunity to Registry: Yes; Notes: low testostero ne; Not Available [facility] 4 06:58:30 Chronic pain 79007895 Active 2020 Chronic pain; snomeddesc ription: Chronic pain; Report Immunity to Registry: Yes; Notes: Back/shoul erica.all body; Other chronic pain; snomeddesc ription: Chronic pain; Report Immunity to Registry: Yes; Notes: Back/shoul erica.all body; Not Available [facility] 4 06:58:26 Lipodystr ophy 29728979 Active 2022 Siddharth Angel [facility] [address] [facility] [place], [address] , RANDALL ANGEL MD 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 3 02:42:52 Notes:osteoarthirtis ; Onset Date: 06/15/2013; Report Immunity to Registry: Yes; Notes: multiple/generalized; Some problems listed in Document: #[id number] could not be added to this patient's [...] Not Available Not Available Not Available Afluria 1633-9972 45 mcg (15 mcg x 3)/0.5 mL [...] Not Available Not Available Not Avai lable [facility] 60 mcg (15 mcg x 4)/0.5 [...] cm 62 /min 97.5 [degF] 28.7 kg/m2 38361.4 7 g 99 % 130/71 mm[Hg] Shahla ANGEL MD [facility] 5 14:07:57 Social History Question Answer Notes LastModified by Organizat ion Details LastModified Time Tobacco Smoking Status Never Smoker RANDALL Seaman MD [facility] 02/24/2023 15:11:34 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 Yes Night Blindness Information not available 02/24/2023 Are You Deaf Or Do You Have Serious Difficulty Hearing? No [email or web address] Information not available 02/24/2023 What Type Of Diet Are You Following? REGULAR [email or web address] Information not available 02/24/2023 Which Of Your Hands Is Dominant? Right [email or web address] Information not available 02/24/2023 Do You Use Your Seat Belt Or Car Seat Routinely? Yes [email or web address] Information not available 02/24/2023 Do You Have Difficulty Walking Or Climbing Stairs? Yes Back Pain [email or web address] Information not available 02/24/2023 Do You Have Any Dietary Restrictions? No [email or web address] Information not available 02/24/2023 Sex: Male Functional Status Question Answer Note LastModified by Organizat ion Details LastModified Time Do you have transportation difficulties? No [email or web address] Information not available 02/24/2023 Are you able to walk independently without assistance or assistive devices? YESWOREST [email or web address] Information not available 02/24/2023 Do you have difficulty doing errands alone? No [email or web address] Information not available 02/24/2023 Are you able to care for yourself independently? Yes [email or web address] Information not available 02/24/2023 Do you have difficulty dressing, bathing, grooming, or toileting? No [email or web address] Information not available 02/24/2023 Mental Status Question Answer Note LastModified by Organizat ion Details LastModified Time Do you feel stressed (tense, restless, nervous, or anxious, or unable to sleep at night)? [id number] [email or web address] Information not available 02/24/2023 Do you have difficulty concentrating, remembering or making decisions? No [email or web address] Information no t available 02/24/2023 Family History Nothing Reported Notes:Hypertension, Response Property: Yes; , Stroke, Response Property: Yes; Medical History Condition Response Anxiety Disorder Y AIDS/HIV Y Depression Y Immunizations Vaccine Type Date Status Note Provider Nam e and Address Organization Details Recorded Time COVID-19, mRNA, LNP-S, PF, 50 mcg/0.5 mL 03/24/2023 completed Tiff maya [place] - SIDDHARTH ANGEL MD [facility] 11/04/2023 14:39:33 Past Encounters Encounter ID Performer Location Encounter Start Date Encounter Closed Date Diagnosis/Indication Diagnosis SNOMED-CT Code Diagnosis ICD10 Code Diagnosis IMO Codes Diagnosis Note [id number] Siddharth Anegl MD Main Office [address] [place] [address] RANDALL BONDS [phone] 05/24/2025 14:00:15 05/24/2025 15:49:47 Human immunodeficiency virus infection 00134922 B20 on Biktarvy 1 tab po qd.strict [...] be checked- will refer if elevated Anxiety 95967981 F41.9 78463 prescribe Hydroxyzin e 50mg po BID PRN for insomnia/a nxiety has tolerated well in the past. correct use reviewedst ates that the medication is helpful for the anxiety Methicilli n resistant Staphylococcus aureus infection 739672790 A49.02 943629 on qd Doxycyclin e suppressio n tx PRN. to decrease frequency and severity of flareups.m upirocin prescribed PRNsmall excoriatio ns on forearms and scalp Onychomycosis 473963650 B35.1 032826 pt has been treated for nail infection [...] of finger Chronic low back pain 27 2147306 M54.41 G89.29 [id number] pt had back surgery in Jan on [...] Gunn Member ID Guarantor Name 05/24/2025 1 [facility] [employer]pe[employer] (HMO) [facility] Roni Willson [id number] Roni Mckeoncourtney 05/24/2025 2 [place]: [facility] Roni Willson [id number] Roni Willson Notes Date Note Type Note [...] HCV neg; treponemal ab neg; eGFR= 67 TR7=9228/2023 722; HIV VL nondetected; 3GFR>70; ALt/AST wnl;08/2023 ZT3=692; aslt/ast wnl; eGFR>60; HCV neg; GC negative; no ienrrnvj14/1/23 HIV VL=43; no HCV. no syphilis; ALT/ASt wbl; eGFR-75; no GC/no chlamydia08/2022 HIV VL nondetcetd; ALT/AST wnl; eGFR>60; Siddharth Angel MD [address] [place] [address], [phone], RANDALL - SIDDHARTH ANGEL MD [facility] 05/24/2025 16:43:15
== END 2025-06-13 12:25 ==
LOC: HO.CT 12:24
PROVIDERS: PCP Internal Medicine; Visit Provider Physician Assistant
DX: K40.20 Bilateral inguinal hernia, without obstruction or gangrene, not specified as recurrent (principal); R19.00 Intra-abdominal and pelvic swelling, mass and lump, unspecified site
CPT/HCPCS: 74177; 82565; Q9967

== ENCOUNTER → 2025-06-13 12:26 | Outpatient (BNV) | payer MEDICARE, MEDICAID, SELFPAY | PROVIDERS: PCP Internal Medicine; Visit Provider Radiology Diagnostic Radiology | DX: K40.20 Bilateral inguinal hernia, without obstruction or gangrene, not specified as recurrent (principal) | CPT/HCPCS: 74177 ==